=== PATIENT | female | born 1965 | race Caucasian/White ===

== ENCOUNTER 2020-04-01 06:07 | Outpatient (REF) | payer BC, SELFPAY ==
[2020-04-01 07:06] LABS: MANUAL DIFF FLAG NO
[2020-04-01 07:15] LABS: Basophils Percent Auto 0.6 % (0-2); Eosinophils Absolute Auto 0.2 X10*3/uL (0.0-0.4); Eosinophils Percent Auto 3.5 % (0-4); Hematocrit 39.7 % (37-47); Hemoglobin 12.7 g/dl (12.0-16.0); Imm Gran Abs Auto 0.02 X10*3/uL (0.00-0.03); Imm Gran Pct Auto 0.3 % (0.0-0.4); Lymphocytes Absolute Auto 2.4 X10*3/uL (1.2-4.9); Lymphocytes Percent Auto 35.8 % (20-40); Mean Corpuscular Hemoglobin 28.4 pg (27.0-33.0); Mean Corpuscular Volume 88.8 fL (80-98); Mean Platelet Volume 9.1 fL (9.4-12.3); Monocytes Absolute Auto 0.4 X10*3/uL (0.1-1.2); Monocytes Percent Auto 5.6 % (2-11); Neutrophils Absolute Auto 3.6 X10*3/uL (2.0-8.3); Neutrophils Percent Auto 54.2 % (45-73); Platelet Count 295 X10*3/uL (160-400); Red Blood Count 4.47 X10*6/uL (4.20-5.50); Red Cell Distribution Width 12.8 % (11.0-16.0); White Blood Count 6.7 X10*3/uL (4.8-10.8)
[2020-04-01 07:43] LABS: Alanine Aminotransferase 23 U/L (0-31); Albumin Level 4.2 g/dL (3.5-5.0); Alkaline Phosphatase 90 U/L (39-117); Anion Gap 11 (12-20); Aspartate Amino Transferase 17 U/L (5-31); Bilirubin Total 0.3 mg/dL (0.0-1.0); Blood Urea Nitrogen 14 mg/dL (9-16); Calcium 9.3 mg/dL (8.4-10.2); Carbon Dioxide 27 mmol/L (22-29); Chloride 107 mmol/L (96-108); Cholesterol 209 mg/dL; Estimated Glomerular Filt Rate > 60; Glucose Random 97 mg/dL (60-115); HDL Cholesterol 47 mg/dL; LDL Cholesterol Calculated 148 mg/dl; Potassium 4.6 mmol/l (3.3-5.1); Sodium 140 mmol/L (135-145); Total Protein 7.1 g/dL (6.5-8.0); Triglycerides 73 mg/dL; Uric Acid 5.7 mg/dL (2.4-5.7)
[2020-04-01 07:53] LABS: Free T4 (Free Thyroxine) 1.15 ng/dL (0.71-1.85); Thyroid Stimulating Hormone 2.75 uIU/mL (0.32-4.0); Vitamin D 25-OH Total 21.4 ng/mL (>30)
[2020-04-01 08:54] LABS: Folate 9.2 ng/mL (> or = 4.0); Vitamin B12 907 pg/mL (200-900)
== END 2020-04-01 06:08 | disposition home or self-care (01) ==
LOC: HO.LAB 06:07
PROVIDERS: Visit Provider Internal Medicine
DX: E78.00 Pure hypercholesterolemia, unspecified (principal); I10 Essential (primary) hypertension; K21.9 Gastro-esophageal reflux disease without esophagitis; Z87.442 Personal history of urinary calculi
CPT/HCPCS: 36415; 80053; 80061; 82306; 82607; 82746; 84439; 84443; 84550; 85025

== ENCOUNTER 2020-05-24 19:02 | Emergency (ER) | payer BC, SELFPAY ==
[2020-05-24 19:39] VITALS: BP 138/92; PULSE 85; RESP 16; TEMP 36.6; O2SAT 97; BMI 31.1
--- NOTE | 2020-05-24 19:46 | ED_ITS ---
HPI - General Adult General Chief complaint: Dental/Oral Stated complaint: Tongue Swelling Time Seen by Provider: 05/24/20 19:41 Source: patient Mode of arrival: ambulatory History of Present Illness HPI narrative: Female with past medical history of hypertension, hyperlipidemia, GERD, plantar fasciitis, presenting to the ED complaining of painful/swollen tongue with noted split x a few hours. Denies trauma/biting, sx after food or any ingestion. Denies throat swelling, difficulty swallowing or handling secretions, SOB, cough, fever, new medications, change in medications Onset (ago): hour(s) Related Data Home Medications Medication Instructions Recorded Confirmed cholecalciferol (vitamin D3) 25 25 mcg PO DAILY 04/01/20 04/30/20 mcg (1,000 unit) tablet Previous Rx's Medication Instructions Recorded simvastatin 10 mg tablet 10 mg PO BEDTIME #30 tab 04/01/20 hydrochlorothiazide 25 mg tablet 25 mg PO DAILY #90 tab 04/30/20 omeprazole 20 mg capsule,delayed 20 mg PO DAILY #90 cap 04/30/20 release cetirizine [Zyrtec] 10 mg PO DAILY 14 Days #14 cap 05/24/20 diphenhydramine HCl [Benadryl] 25 mg PO Q6H PRN #10 cap 05/24/20 Allergies Allergy/AdvReac Type Severity Reaction Status Date / Time No Known Allergies [NKA] Allergy Mild NOT Verified 04/01/20 15:22 APPLICABLE Review of Systems Review of Systems: Constitutional: No Weight loss, No Fever, No Chills ENT/Mouth: No Ear Pain, No Nasal Congestion, No Sinus Pain, No Hoarseness, No sore throat, No Rhinorrhea, No Swallowing Difficulty, +tongue pain and swelling Cardiovascular: No Chest Pain, No SOB Respiratory: No Cough, No Sputum, No Wheezing Skin: No Skin Lesions, No rash Yes all other systems are reviewed and are negative [facility] Past Medical History Attestation statement: The following information was validated with the patient. Medical History (Updated 05/24/20 @ 19:54 by SILVIANO Go) Fatty liver GERD (gastroesophageal reflux disease) History of renal calculi Hypercholesterolemia Hypertension Irritable bowel syndrome Obesity (BMI 30-39.9) Surgical History (Updated 03/28/20 @ 17:40 by Isaac Field MD) H/O tubal ligation History of abdominal hysterectomy History of lithotripsy Hx of appendectomy Family History Family History (Updated 03/31/20 @ 08:52 by SURESH Silver) Father Brain tumor Mother Hypertension CVD (cardiovascular disease) Social History Social History (Updated 04/01/20 @ 15:25 by Isaac Field MD) Alcohol intake: never Smoking Status: Never smoker Smoked in Last 30 Days: No Use of substances other than those prescribed or required for medical reasons: No Advance Directives: No Advance Directives Information Provided: Yes Physical Exam Vital Signs: Vital Signs: Last Vital Signs Temp 97.8 F 05/24/20 19:39 Pulse 85 05/24/20 19:39 Resp 16 05/24/20 19:39 BP 138/92 H 05/24/20 19:39 Pulse Ox 97 05/24/20 19:39 Body Mass Index 31.1 Const: General: cooperative and healthy appearing Orientation/consciousness: patient oriented x3 Limitations: no limitations HENMT: Head: Yes normal to inspection Ears: hearing grossly normal bilaterally General nose exam: Normal external nose present Face and sinus: Yes normal facial exam Mouth: Normal oral and palatal mucosa present and tongue abnormal (No appreciable tongue swelling) fissured; not edematous, not ulcerated, without plaques and without lesions Throat: Yes posterior oropharynx normal, Yes tonsils normal, Yes uvula midline, No peritonsillar mass and No uvular edema Eyes: General: appearance normal, both eyes and all related structures EOM: EOMs intact bilaterally Neck: Neck: Yes normal visual inspection, Yes no lymphadenopathy, Yes no meningeal signs and Yes trachea midline Resp: Effort & Inspection: normal respiratory effort, no stridor, not tachypneic and no tracheal deviation Auscultation: clear to auscultation bilaterally and no wheezes Cardio: Rate: regular rate Heart sounds: S1 normal heart sound present and S2 normal heart sound present GI: Inspection: Yes normal to inspection Skin: Rashes: no rashes Wounds: no wounds Neuro: General: patient oriented x3 and no meningeal signs Gait exam (Neuro): Normal gait present Extrem: General: Yes normal to inspection Course Course Course Narrative: * Patient reports symptomatic improvement after Tylenol, Benadryl, and viscous lidocaine in the ED. * Medications reconciled and patient only takes hydrochlorothiazide and simvastatin at home, does not take an FELICITA-inhibitor or Arb. worrisome signs and symptoms discussed. Patient verbalized understanding and feels safe for discharge home Medical Decision Making MDM Narrative Medical decision making narrative: On exam VSS, NAD/well-appearing, tongue with noted fissure, no cellulitis/edema or appreciable swelling, uvula midline, no [employer]OR[employer]. Concern for possible allergic reaction vs ? Tongue trauma Discharge Plan Discharge Clinical Impression: Tongue fissure Patient Disposition: Home, Self-Care Additional Instructions: Your tongue appears fissured Take Zyrtec during the day as it will not make you drowsy Take Benadryl at night, or if you feel swelling is worsening. Take Tylenol and Motrin for pain Avoid biting her tongue if your tongue swells, turns red, you have fever, difficulty swallowing, difficulty handling your secretions or shortness of breath return to the ED Prescriptions: New diphenhydramine HCl [Benadryl] 25 mg capsule 25 mg PO Q6H PRN (Reason: allergic reaction) Qty: 10 RF: 0 Zyrtec 10 mg capsule 10 mg PO DAILY 14 Days Qty: 14 RF: 0 No Action cholecalciferol (vitamin D3) 25 mcg (1,000 unit) tablet 25 mcg PO DAILY RF: 0 simvastatin 10 mg tablet 10 mg PO BEDTIME Qty: 30 RF: 3 omeprazole 20 mg capsule,delayed release(DR/EC) 20 mg PO DAILY Qty: 90 RF: 1 hydrochlorothiazide 25 mg tablet 25 mg PO DAILY Qty: 90 RF: 1 Referrals: Po,Isaac Sequeira MD [Primary Care Provider] - 2 days
[2020-05-24] MEDS: Acetaminophen 325 MG TABLET 650 MG PO (19:52)
[2020-05-24] MEDS: Lidocaine HCl Viscous 2 % 15 ML SOLUTION MUCOUS MEM (19:53)
[2020-05-24] MEDS: diphenhydrAMINE HCL 25 MG TABLET PO (19:53)
== END 2020-05-24 21:37 | disposition home or self-care (01) ==
PROVIDERS: Emergency Provider Emergency Medicine; PCP Internal Medicine
DX: K14.5 Plicated tongue (principal); I10 Essential (primary) hypertension
CPT/HCPCS: 99284; Q0163

== ENCOUNTER 2020-06-09 14:36 | Emergency (ER) | payer BC, SELFPAY ==
[2020-06-09 14:49] VITALS: BP 123/78; PULSE 106; RESP 18; TEMP 39.2; O2SAT 97; BMI 30.3
--- NOTE | 2020-06-09 15:02 | XR_ITS ---
EXAMINATION: XR CHEST CLINICAL INFORMATION: Cough. COVID-19 positive. Fever COMPARISON: None TECHNIQUE: Portable upright AP view of the chest was obtained. FINDINGS: There is coarsening of the bronchiolar markings. Subtle groundglass opacities suggested lower zones. There is no lobar or segmental airspace consolidation. Heart size normal. No vascular congestion or effusion. The bony structures are unremarkable. XR/XR chest 1V IMPRESSION: 1. Coarsening bronchiolar markings with subtle groundglass opacity just right lower zone. 2. No lobar segmental airspace consolidation or effusion.
--- NOTE | 2020-06-09 15:11 | ECG_ITS ---
Test Reason : FEVER Blood Pressure : / mmHG Vent. Rate : 099 BPM Atrial Rate : 099 BPM P-R Int : 134 ms QRS Dur : 072 ms QT Int : 332 ms P-R-T Axes : 050 -02 008 degrees QTc Int : 426 ms Artifact in tracing Normal sinus rhythm Nonspecific ST abnormality Borderline ECG When compared with ECG of 12-NOV-2007 07:29, No significant change was found Referred By: Coco Banks Electronically Signed By:NATANAEL CORDOBA
[2020-06-09] MEDS: Acetaminophen 325 MG TABLET 650 MG PO (15:19)
--- NOTE | 2020-06-09 15:21 | ED_ITS ---
HPI - General Adult General Chief complaint: General Medical Stated complaint: covid+, not feeling well Time Seen by Provider: 06/09/20 14:53 Source: patient Mode of arrival: ambulatory History of Present Illness HPI narrative: 54-year-old female with a past medical history fatty liver, GERD, renal calculi, hyperlipidemia, hypertension, IBS, obesity, COVID-19 positive 1 week ago presenting to the ED complaining persistent dry cough, left-sided chest wall pain, left upper abdominal pain, nausea, and vomiting. Admits pain worse with deep inspiration/movement. Denies days dysuria/hematuria, constipation, the ED shortness of breath, recent travel, LE edema, smoking Onset (ago): day(s) Related Data Home Medications Medication Instructions Recorded Confirmed cholecalciferol (vitamin D3) 25 25 mcg PO DAILY 04/01/20 04/30/20 mcg (1,000 unit) tablet Previous Rx's Medication Instructions Recorded simvastatin 10 mg tablet 10 mg PO BEDTIME #30 tab 04/01/20 hydrochlorothiazide 25 mg tablet 25 mg PO DAILY #90 tab 04/30/20 omeprazole 20 mg capsule,delayed 20 mg PO DAILY #90 cap 04/30/20 release cetirizine [Zyrtec] 10 mg PO DAILY 14 Days #14 cap 05/24/20 diphenhydramine HCl [Benadryl] 25 mg PO Q6H PRN #10 cap 05/24/20 Allergies Allergy/AdvReac Type Severity Reaction Status Date / Time No Known Allergies [NKA] Allergy Mild NOT Verified 06/09/20 14:49 APPLICABLE Review of Systems Review of Systems: Constitutional: No Weight loss, +Fever, No Chills, No Night Sweats, + Fatigue, No Malaise ENT/Mouth: No sore throat, No Rhinorrhea Eyes: No Eye Pain, No Swelling, No Redness, No Foreign Body, No Discharge, No Vision Changes Cardiovascular: +chest wall pain, No SOB, No Dyspnea on Exertion, No Edema Respiratory: + Cough, No Sputum, No Dyspnea Gastrointestinal: + Nausea, + Vomiting, + Diarrhea, No Constipation, +Abdominal pain Genitourinary: No irregular bleeding, No Dysuria, No Urinary Frequency, No Hematuria,No Flank Pain Skin: No Skin Lesions, No rash Yes all other systems are reviewed and are negative PMFSH Past Medical History Attestation statement: The following information was validated with the patient. Medical History Acute allergic reaction Fatty liver GERD (gastroesophageal reflux disease) History of renal calculi Hypercholesterolemia Hypertension Irritable bowel syndrome Obesity (BMI 30-39.9) Surgical History H/O tubal ligation History of abdominal hysterectomy History of lithotripsy Hx of appendectomy Family History Family History Father Brain tumor Mother Hypertension CVD (cardiovascular disease) Social History Social History Alcohol intake: never Smoking Status: Never smoker Advance Directives: No Advance Directives Information Provided: No Physical Exam Vital Signs: Vital Signs: Last Vital Signs Temp 102.6 F H 06/09/20 14:49 Pulse 106 H 06/09/20 14:49 Resp 18 06/09/20 14:49 BP 123/78 06/09/20 14:49 Pulse Ox 97 06/09/20 14:49 Body Mass Index 30.3 Const: General: cooperative, comfortable and no acute distress [place] ation/consciousness: patient oriented x3 Limitations: no limitations HENMT: Head: Yes normal to inspection Ears: hearing grossly normal bilaterally General nose exam: Normal external nose present Face and sinus: Yes normal facial exam Eyes: General: appearance normal, both eyes and all related structures EOM: EOMs intact bilaterally Neck: Neck: Yes normal visual inspection Chest: Other: + left lower anterior chest wall tenderness reproducing subject celina complaint Chest palpation & inspection: no crepitus Resp: Effort & Inspection: normal respiratory effort and no stridor Auscultation: clear to auscultation bilaterally, no rales, no rhonchi and no wheezes Cardio: Rate: regular rate Heart sounds: S1 normal heart sound present and S2 normal heart sound present GI: Inspection: Yes normal to inspection Palpation (GI): Soft to palpation, Tenderness to palpation present (GI) in the epigastrum and in the LUQ, no guarding and not rigid : General: Yes no CVA tenderness Back/Spine/Pelvis: Back: no CVA tenderness Skin: Rashes: no rashes Wounds: no wounds Neuro: General: patient oriented x3 Gait exam (Neuro): Normal gait present Extrem: Other: No LE edema, + bilateral calf tenderness greater on the left General: Yes normal to inspection Course Course Course Narrative: XR chest 1V IMPRESSION: 1. Coarsening bronchiolar markings with subtle groundglass opacity just right lower zone. 2. No lobar segmental airspace consolidation or effusion >> azithromycin ordered * 1700-- ED care transfer to SILVIANO Garg pending labs, venous duplex, re-evaluation and dispo per results Medical Decision Making MDM Narrative Medical decision making narrative: 54-year-old female with a past medical history fatty liver, GERD, renal calculi, hyperlipidemia, hypertension, IBS, obesity, COVID-19 positive 1 week ago presenting to the ED complaining persi stent dry cough, left-sided chest wall pain, left upper abdominal pain, nausea, and vomiting. On exam febrile, tachycardic likely from fever, lungs CTA, chest wall tenderness elicited on exam, abdomen soft with epigastric the LUQ TTP, rebound or guarding. Concern for residual COVID sx vs COVID pneumonia vs PE/DVT vs GERD/gastritis or pancreatitis. Lower concern for cholecystitis/cholelithiasis, appendicitis/diverticulitis, or bacterial infection. Low concern for severe sepsis as etiology viral/COVID-19 Plan: EKG, labs, CXR, venous duplex, symptomatic therapy/reassess Lab Data Result diagrams: 06/09/20 16:55 06/09/20 16:55 Labs: Lab Results 06/09/20 06/09/20 Range/Units 16:18 16:55 WBC 6.1 (4.8-10.8) X10*3/uL RBC 4.68 (4.20-5.50) X10*6/uL Hgb 13.2 (12.0-16.0) g/dl Hct 39.6 (37-47) % MCV 84.6 (80-98) fL MCH 28.2 (27.0-33.0) pg MCHC 33.3 (31.0-35.0) g/dl RDW 11.9 (11.0-16.0) % Plt Count 264 (160-400) X10*3/uL MPV 8.9 L (9.4-12.3) fL Immature Gran % (Auto) 0.5 H (0.0-0.4) % Neut % (Auto) 70.1 (45-73) % Lymph % (Auto) 20.8 (20-40) % Whitley % (Auto) 8.4 (2-11) % Eos % (Auto) 0.0 (0-4) % Baso % (Auto) 0.2 (0-2) % Lymph # (Auto) 1.3 (1.2-4.9) X10*3/uL Whitley # (Auto) 0.5 (0.1-1.2) X10*3/uL Eos # (Auto) 0.0 (0.0-0.4) X10*3/uL Baso # (Auto) 0.0 (0.0-0.2) X10*3/uL Abs Immat Gran (auto) 0.03 (0.00-0.03) X10*3/uL Absolute Neuts (auto) 4.3 (2.0-8.3) X10*3/uL Absolute Nucleated RBC 0.000 (0.0-0.012) X10*3/uL Nucleated RBC % (auto) 0.0 (0.0-0.2) /100WBC Urine Color YELLOW Urine Appearance CLEAR Urine pH 6.5 (5.0-8.0) Ur Specific [place] 1.015 (1.005-1.025) Urine Protein TRACE (NEG-TRACE) MG/DL Urine Glucose (UA) NEG (NEG) MG/DL Urine Ketones NEG (NEG) MG/DL Urine Blood TRACE (NEG) Urine Nitrite NEG (NEG) Ur Leukocyte Esterase NEG (NEG) Urine RBC 0-2 (0) /HPF Urine WBC 0 (0-4) /HPF Ur Squamous Epith Cells TRACE /LPF Urine Bacteria NONE /LPF ECG Data Attestation: I personally reviewed and interpreted this ECG as follows: Interpretation: EKG normal sinus rhythm with a rate of 99. No ischemic changes. No STEMI. Artifact present Discharge Plan Discharge Prescriptions: No Action diphenhydramine HCl [Benadryl] 25 mg capsule 25 mg PO Q6H PRN (Reason: allergic reaction) Qty: 10 RF: 0 Zyrtec 10 mg capsule 10 mg PO DAILY 14 Days Qty: 14 RF: 0 cholecalciferol (vitamin D3) 25 mcg (1,000 unit) tablet 25 mcg PO DAILY RF: 0 simvastatin 10 mg tablet 10 mg PO BEDTIME Qty: 30 RF: 3 omeprazole 20 mg capsule,delayed release(DR/EC) 20 mg PO DAILY Qty: 90 RF: 1 hydrochlorothiazide 25 mg tablet 25 mg PO DAILY Qty: 90 RF: 1
--- NOTE | 2020-06-09 15:26 | US_ITS ---
EXAMINATION: US VENOUS ULTRASOUND WITH DOPPLER LOWER EXTREMITY, BILATERAL CLINICAL INFORMATION: Calf pain bilaterally greater on the left. COMPARISON: None TECHNIQUE: Ultrasound of the deep veins is performed from the hip to the calf with compression sonography and color and pulse Doppler assessment. Spectral analysis with color-flow imaging is performed. FINDINGS: RIGHT: There is normal venous compression and respiratory variation and augmented flow. The visualized common femoral vein, superficial femoral vein, profunda femoral vein, popliteal vein, and the trifurcation region shows no evidence of deep venous thrombosis. There is no significant popliteal fossa cyst. LEFT: There is normal venous compression and respiratory variation and augmented flow. The visualized common femoral vein, superficial femoral vein, profunda femoral vein, popliteal vein, and the trifurcation region shows no evidence of deep venous thrombosis. There is no significant popliteal fossa cyst. The left peroneal vein is not able to be visualized. If the patient's symptoms persist, followup ultrasound in 5 days 7 days might be of value to exclude proximal propagation from a non-visualized calf vein. US/US venous duplex LE BI IMPRESSION: No DVT demonstrated in the bilateral lower .
[2020-06-09] MEDS: Famotidine 20 MG TABLET PO (15:46)
[2020-06-09] MEDS: Magnesium Hydrox/Alum Hydrox 30 ML ORAL.SUSP PO (15:46)
[2020-06-09 16:46] LABS: Appearance Urine CLEAR; Color Urine YELLOW; Glucose Urine UA NEG (NEG); Leukocyte Esterase Urine NEG (NEG); Nitrite Urine NEG (NEG); PH 6.5 (5.0-8.0); Specific Gravity - Urine 1.015 (1.005-1.025); Urine Blood TRACE (NEG); Urine Ketones NEG (NEG); Urine Protein TRACE MG/DL (NEG-TRACE)
[2020-06-09 17:02] LABS: MANUAL DIFF FLAG NO
[2020-06-09 17:04] LABS: Basophils Percent Auto 0.2 % (0-2); Hematocrit 39.6 % (37-47); Hemoglobin 13.2 g/dl (12.0-16.0); Imm Gran Abs Auto 0.03 X10*3/uL (0.00-0.03); Imm Gran Pct Auto 0.5 % (0.0-0.4); Lymphocytes Absolute Auto 1.3 X10*3/uL (1.2-4.9); Lymphocytes Percent Auto 20.8 % (20-40); Mean Corpuscular HGB Conc 33.3 g/dl (31.0-35.0); Mean Corpuscular Hemoglobin 28.2 pg (27.0-33.0); Mean Corpuscular Volume 84.6 fL (80-98); Mean Platelet Volume 8.9 fL (9.4-12.3); Monocytes Absolute Auto 0.5 X10*3/uL (0.1-1.2); Monocytes Percent Auto 8.4 % (2-11); Neutrophils Absolute Auto 4.3 X10*3/uL (2.0-8.3); Neutrophils Percent Auto 70.1 % (45-73); Platelet Count 264 X10*3/uL (160-400); Red Blood Count 4.68 X10*6/uL (4.20-5.50); Red Cell Distribution Width 11.9 % (11.0-16.0); White Blood Count 6.1 X10*3/uL (4.8-10.8)
[2020-06-09 17:08] LABS: RBC Urine 0-2 /HPF (0); Squamous Epithelial Cell Urine TRACE /LPF; WBC Urine 0 /HPF (0-4)
[2020-06-09 17:22] LABS: INTERNATIONAL NORM RATIO 1.3 (0.9-1.1); Prothrombin Time 15.8 SEC (10.8-13.0)
[2020-06-09 17:25] LABS: D Dimer 689 NG/ML; Partial Thromboplastin Time 32.7 SEC (24.1-38.0)
[2020-06-09 17:37] LABS: Lipase 43 U/L (8-78)
[2020-06-09 17:39] LABS: Alanine Aminotransferase 94 U/L (0-31); Alkaline Phosphatase 92 U/L (39-117); Anion Gap 13 (12-20); Aspartate Amino Transferase 50 U/L (5-31); Bilirubin Direct 0.2 mg/dL (0.0-0.5); Bilirubin Total 0.3 mg/dL (0.0-1.0); Blood Urea Nitrogen 11 mg/dL (9-16); Calcium 8.8 mg/dL (8.4-10.2); Carbon Dioxide 29 mmol/L (22-29); Chloride 99 mmol/L (96-108); Creatinine Clr Calc Pharmacy 79.3; Estimated Glomerular Filt Rate > 60; Glucose Random 122 mg/dL (60-115); Lactate Dehydrogenase 287 U/L (122-220); Magnesium 2.2 mg/dL (1.6-2.6); Potassium 3.4 mmol/l (3.3-5.1); Sodium 138 mmol/L (135-145); Total Protein 7.1 g/dL (6.5-8.0)
[2020-06-09] MEDS: Azithromycin 500 MG TABLET PO (17:40)
[2020-06-09 17:42] LABS: B Type Natriuretic Peptide < 10 pg/mL (<100); Troponin-I High Sensitivity < 3.5 ng/L (<3.5-17.0)
[2020-06-09 17:58] LABS: Ferritin 234 ng/mL (10-250); Procalcitonin 0.07 ng/mL
[2020-06-09 18:00] VITALS: RESP 18
--- NOTE | 2020-06-09 18:30 | PC.NURSE ---
iv established, blood labs and cultures obtained and sent. medicated per emar. ultrasound at bedside for doppler r/o dvt.
--- NOTE | 2020-06-09 19:02 | CT_ITS ---
EXAMINATION: CT ANGIOGRAM OF THE CHEST WITH AND WITHOUT CONTRAST (CT PULMONARY ANGIOGRAM FOR PE) EXAMINATION: CTA CHEST PE STUDY CLINICAL INFORMATION: elevated D-dimer. PE? COMPARISON: Chest x-ray today TECHNIQUE: Prior to contrast administration, noncontrast localization images were obtained. After the administration of 65 mL of Omnipaque 350 IV contrast, contiguous thin slice helical images were obtained through the thorax. Reformatted MIP images in the coronal and sagittal planes were obtained at the acquisition workstation. This CT examination was performed using dose optimization techniques as appropriate, variously including the following: *Automated exposure control *Adjustment of mA and/or kV according to patient size (this includes techniques or standardized protocols for targeted exams where dose is matched to indication/reason for exam; i.e. extremities or head) *Use of iterative reconstruction technique DLP: 303 mGy-cm. FINDINGS: The bolus timing on this study was acceptable for visualization of the pulmonary arterial tree. There are no intraluminal pulmonary arterial filling defects present to suggest pulmonary embolism. Patchy bilateral airspace disease is seen. Groundglass opacities are seen with a relative peripheral predominance. Atypical or viral infectious etiology would be favored in the acute setting. No abnormal pulmonary nodules or masses are appreciated. No significant hilar or mediastinal adenopathy. There is no evidence of pleural effusion or pneumothorax. The heart is normal in size. No evidence of ventricular septal bowing or right heart strain. Great vessels are normal. Otherwise the mediastinum is unremarkable. There is no pericardial effusion or pericardial thickening. Limited evaluation of the upper abdominal viscera is unremarkable. CT/CT angio chest PE protocol IMPRESSION: No evidence for pulmonary emboli. Patchy bilateral groundglass opacities seen with a peripheral predominance. Atypical or viral infectious etiology would be suspected in the acute setting. VTE: Negative
[2020-06-09 19:24] VITALS: BP 118/74; PULSE 86; RESP 16; O2SAT 97
[2020-06-09] MEDS: iohexoL 350 MG/ML 100 ML INFUS..BTL 65 ML IV (20:32)
[2020-06-09 23:26] VITALS: BP 118/76; PULSE 84; RESP 18; O2SAT 95
[2020-06-10] VITALS: BP 134/78; PULSE 84; RESP 16; TEMP 36.9; O2SAT 99
--- NOTE | 2020-06-10 00:14 | PC.NURSE ---
PATIENT WENT FOR A WALK ,O2 SAT STAYED AT 99 % ,SILVIANO BUTT IS AWARE .
== END 2020-06-10 00:47 | disposition home or self-care (01) ==
PROVIDERS: Physician Assistant; Emergency Provider Emergency Medicine; PCP Internal Medicine
DX: R07.89 Other chest pain (principal); Z86.16 Personal history of COVID-19; M79.662 Pain in left lower leg; M79.661 Pain in right lower leg; I10 Essential (primary) hypertension; R50.9 Fever, unspecified
CPT/HCPCS: 36415; 71045; 71275; 80048; 80076; 81001; 82728; 83605; 83615; 83690; 83735; 83880; 84145; 84484; 85025; 85379; 85610; 85730; 87040; 93005; 93970; 99284; Q9967

== ENCOUNTER 2020-06-28 07:35 | Outpatient (REF) | payer BC, SELFPAY ==
[2020-06-28 09:07] LABS: Alanine Aminotransferase 22 U/L (0-31); Albumin Level 4.3 g/dL (3.5-5.0); Alkaline Phosphatase 99 U/L (39-117); Anion Gap 14 (12-20); Aspartate Amino Transferase 19 U/L (5-31); Bilirubin Total 0.7 mg/dL (0.0-1.0); Blood Urea Nitrogen 13 mg/dL (9-16); Calcium 9.7 mg/dL (8.4-10.2); Carbon Dioxide 26 mmol/L (22-29); Chloride 102 mmol/L (96-108); Cholesterol 223 mg/dL; Estimated Glomerular Filt Rate > 60; Glucose Random 105 mg/dL (60-115); HDL Cholesterol 44 mg/dL; LDL Cholesterol Calculated 148 mg/dl; Potassium 3.8 mmol/L (3.3-5.1); Sodium 138 mmol/L (135-145); Total Protein 7.7 g/dL (6.5-8.0); Triglycerides 157 mg/dL
[2020-06-28 09:30] LABS: Vitamin D 25-OH Total 46.2 ng/mL (>30)
== END 2020-06-28 07:36 | disposition home or self-care (01) ==
LOC: HO.LAB 07:35
PROVIDERS: PCP Internal Medicine; Visit Provider Internal Medicine
DX: E55.9 Vitamin D deficiency, unspecified (principal); E78.00 Pure hypercholesterolemia, unspecified
CPT/HCPCS: 36415; 80053; 80061; 82306

== ENCOUNTER 2020-09-03 13:55 | Outpatient (REF) | payer BC, SELFPAY ==
[2020-09-03 14:31] LABS: MANUAL DIFF FLAG NO
[2020-09-03 14:37] LABS: Basophils Absolute Auto 0.1 X10*3/uL (0.0-0.2); Basophils Percent Auto 0.6 % (0-2); Eosinophils Absolute Auto 0.2 X10*3/uL (0.0-0.4); Eosinophils Percent Auto 2.4 % (0-4); Hematocrit 36.7 % (37-47); Imm Gran Abs Auto 0.03 X10*3/uL (0.00-0.03); Imm Gran Pct Auto 0.3 % (0.0-0.4); Lymphocytes Percent Auto 33.7 % (20-40); Mean Corpuscular HGB Conc 32.7 g/dl (31.0-35.0); Mean Corpuscular Hemoglobin 28.7 pg (27.0-33.0); Mean Corpuscular Volume 87.8 fL (80-98); Mean Platelet Volume 8.7 fL (9.4-12.3); Monocytes Absolute Auto 0.6 X10*3/uL (0.1-1.2); Monocytes Percent Auto 6.2 % (2-11); Neutrophils Percent Auto 56.8 % (45-73); Platelet Count 359 X10*3/uL (160-400); Red Blood Count 4.18 X10*6/uL (4.20-5.50); Red Cell Distribution Width 12.9 % (11.0-16.0); White Blood Count 8.8 X10*3/uL (4.8-10.8)
[2020-09-03 14:51] LABS: Alanine Aminotransferase 25 U/L (0-31); Albumin Level 4.3 g/dL (3.5-5.0); Alkaline Phosphatase 88 U/L (39-117); Anion Gap 12 (12-20); Aspartate Amino Transferase 14 U/L (5-31); Bilirubin Total 0.4 mg/dL (0.0-1.0); Blood Urea Nitrogen 15 mg/dL (9-16); Calcium 10.1 mg/dL (8.4-10.2); Carbon Dioxide 30 mmol/L (22-29); Chloride 99 mmol/L (96-108); Estimated Glomerular Filt Rate > 60; Glucose Random 121 mg/dL (60-115); Potassium 3.6 mmol/L (3.3-5.1); Sodium 137 mmol/L (135-145); Total Protein 7.2 g/dL (6.5-8.0)
[2020-09-03 15:15] LABS: Free T4 (Free Thyroxine) 0.88 ng/dL (0.71-1.85); Thyroid Stimulating Hormone 1.51 uIU/mL (0.32-4.0)
== END 2020-09-03 13:56 | disposition home or self-care (01) ==
LOC: HO.LAB 13:55
PROVIDERS: PCP Internal Medicine; Visit Provider Internal Medicine
DX: L65.9 Nonscarring hair loss, unspecified (principal)
CPT/HCPCS: 36415; 80053; 84439; 84443; 85025

== ENCOUNTER 2020-09-22 13:16 | Outpatient (REF) | payer BC, SELFPAY ==
[2020-09-22 14:52] LABS: Estimated Average Glucose 123 mg/dL; Hemoglobin A1c % 5.9 %
[2020-09-22 14:58] LABS: Alanine Aminotransferase 28 U/L (0-31); Albumin Level 4.3 g/dL (3.5-5.0); Alkaline Phosphatase 90 U/L (39-117); Anion Gap 11 (12-20); Aspartate Amino Transferase 19 U/L (5-31); Bilirubin Total 0.5 mg/dL (0.0-1.0); Blood Urea Nitrogen 15 mg/dL (9-16); Calcium 10.3 mg/dL (8.4-10.2); Carbon Dioxide 31 mmol/L (22-29); Chloride 101 mmol/L (96-108); Cholesterol 182 mg/dL; Estimated Glomerular Filt Rate > 60; Glucose Random 114 mg/dL (60-115); HDL Cholesterol 42 mg/dL; LDL Cholesterol Calculated 102 mg/dl; Potassium 3.5 mmol/L (3.3-5.1); Sodium 139 mmol/L (135-145); Total Protein 7.3 g/dL (6.5-8.0); Triglycerides 192 mg/dL
== END 2020-09-22 13:17 | disposition home or self-care (01) ==
LOC: HO.LAB 13:16
PROVIDERS: PCP Internal Medicine; Visit Provider Internal Medicine
DX: R73.02 Impaired glucose tolerance (oral) (principal); E78.00 Pure hypercholesterolemia, unspecified
CPT/HCPCS: 36415; 80053; 80061; 83036

== ENCOUNTER 2020-12-04 10:26 | Outpatient (REF) | payer BC, SELFPAY ==
--- NOTE | ~2020-12-04 | FL_ITS ---
EXAMINATION: XR GI SERIES CLINICAL INFORMATION: Epigastric pain. COMPARISON: None TECHNIQUE: Routine upper GI air-contrast study was performed. FINDINGS: Following oral administration of thick barium and effervescent granules there is normal propagation of bolus from the oral cavity through the pharynx into the esophagus without any evidence of obstruction, narrowing or stricture. On placing patient supine and prone lying there is mild gastroesophageal reflux. No hiatal hernia seen. The course, caliber and peristalsis of the stomach is normal. There are small round prominent mucosal cells in the stomach. Question hypoplastic gastric mucosa versus small gastric erosions. FLUOROSCOPY TIME: 1.6 minutes. DOSE AREA PRODUCT: 27.948 uGy-m2 (microgray-meter squared). FL/FL upper GI series IMPRESSION: Mild gastroesophageal reflux without hiatal hernia. Prominent gastric mucosa likely hyperplastic mucosa or small gastric erosions. Recommend gastroscopy.
== END 2020-12-04 10:27 | disposition home or self-care (01) ==
LOC: HO.XRAY 10:26
PROVIDERS: PCP Internal Medicine; Visit Provider Internal Medicine
DX: R10.13 Epigastric pain (principal)
CPT/HCPCS: 74240

== ENCOUNTER → 2021-02-04 14:50 | Outpatient (BNVA) | payer BC, SELFPAY | PROVIDERS: PCP Internal Medicine; Referring Provider Internal Medicine; Visit Provider Nurse Practitioner Family ==

== ENCOUNTER 2021-02-06 09:22 | Outpatient (REF) | payer BC, SELFPAY | END 2021-02-06 09:23 | disposition home or self-care (01) | LOC: HO.LNP 09:22 | PROVIDERS: Visit Provider Nurse Practitioner Family | DX: K21.9 Gastro-esophageal reflux disease without esophagitis (principal) | CPT/HCPCS: 87338 ==

== ENCOUNTER → 2021-03-13 14:57 | Outpatient (BNVA) | payer BC, SELFPAY | PROVIDERS: PCP Internal Medicine; Referring Provider Internal Medicine; Visit Provider Nurse Practitioner Family ==

== ENCOUNTER 2021-04-09 10:21 | Outpatient (REF) | payer BC, SELFPAY ==
--- NOTE | ~2021-04-09 | US_ITS ---
EXAMINATION: US COMPLETE ABDOMEN WITH LIVER ELASTOGRAPHY CLINICAL INFORMATION: Abdominal pain COMPARISON: None. TECHNIQUE: Real-time imaging of the abdominal viscera. Noninvasive ultrasound liver fibrosis assessment is performed using Edy ElastPQ point quantification shear wave elastography (pSWE) with a C5-2 MHz transducer. Multiple elastography samples are obtained. FINDINGS: PANCREAS: Normal. ABDOMINAL AORTA: The proximal, middle, and distal aortic segments are normal in caliber. INFERIOR VENA CAVA: Visualized portions are normal. LIVER: Liver echotexture is slightly increased. The liver demonstrates normal size and contour. No focal lesion or intrahepatic biliary duct dilatation. The right lobe measures 14 cm in length. The left lobe measures 10 cm in length. Portal flow is normal/hepatopedal Shear wave liver elastography median stiffness is 1.6 m/s (reference: normal median stiffness is 1.3 m/s or less). IQR/median stiffness to assess sampling precision is 0.14 (reference: good quality data set is IQR/median stiffness of 0.15 or less). GALLBLADDER: Normal. The gallbladder is physiologically distended without evidence of stones, sludge, polyps, wall thickening or pericholecystic fluid. COMMON BILE DUCT: Normal in caliber measuring 0.4 cm in diameter. RIGHT KIDNEY: Normal. No hydronephrosis. No renal calculi or focal parenchymal lesions. The kidney measures 11 cm in maximum dimension. LEFT KIDNEY: Normal. No hydronephrosis. No renal calculi or focal parenchymal lesions. The kidney measures 10 cm in maximum dimension. SPLEEN: Normal. The spleen measures 9 cm in maximum dimension. FREE FLUID: None. US/US abdomen comp w elastography IMPRESSION: 1. Impression: Slightly echogenic liver. Limited visualization of the tail the pancreas. 2. Liver elastography: Adequate liver sampling. In the absence of other known clinical signs, rules out compensated advanced chronic liver disease. REFERENCE: Society of Radiologists in Ultrasound Liver Stiffness Thresholds (2020): LIVER STIFFNESS THRESHOLDS: *Liver Stiffness equal or less than 1.3 m/s: High probability of being normal. *Liver Stiffness less than 1.7 m/s: In the absence of other known clinical signs, rules out compensated advanced chronic liver disease. *Liver Stiffness 1.7-2.1 m/s: Suggestive of compensated advanced chronic liver disease but need further test for confirmation. *Liver Stiffness over 2.1 m/s: Rules in compensated advanced chronic liver disease. *Liver Stiffness over 2.4 m/s: Suggestive of clinically significant portal hypertension. QUALITY OF DATA SET: *IQR/Median value equal or less than 0.15 implies a quality data set. *IQR/Median value over 0.15 implies a poor quality data set. SIGNIFICANT CHANGE FROM PRIOR EXAM: Significant change if liver stiffness measurement is 10% or greater from prior exam. OTHER CONSIDERATIONS: The stage of liver fibrosis may be overestimated in the setting of acute hepatitis, liver inflammation, elevated liver function tests, hepatic vascular congestion, obstructive cholestasis, non-fasting state, and infiltrative diseases such as amyloidosis and lymphoma. In some patients with NAFLD, the liver stiffness thresholds for compensated advanced chronic liver disease may be lower. In causes other than viral hepatitis and NAFLD, liver stiffness thresholds are not well established.
== END 2021-04-09 10:22 | disposition home or self-care (01) ==
LOC: HO.US 10:21
PROVIDERS: PCP Internal Medicine; Visit Provider Nurse Practitioner Family
DX: R10.9 Unspecified abdominal pain (principal)
CPT/HCPCS: 76705; 76981

== ENCOUNTER 2021-04-23 11:28 | Day surgery (SDC) | payer BC, SELFPAY ==
--- NOTE | 2021-04-22 10:05 | P.CONAN_ITS ---
Documented by User: Liza Moore NP 04/22/21 10:06 HPI - Anesthesia Eval Consult details Narrative: 55yo F for Upper Endoscopy PMFSH Active Problems Active Problems: All Active Problems (Updated 02/04/21 @ 16:43 by Mary Carmen Barahona [facility]) Vitamin D deficiency (Acute) Plantar fasciitis of right foot (Acute) COVID-19 (Acute) Impaired glucose tolerance (Acute) Hair loss (Acute) Epigastric abdominal pain (Acute) Gastric erosions (Acute) Acute allergic reaction (Acute) Hypertension (Acute) History of renal calculi (Acute) Hypercholesterolemia (Acute) GERD (gastroesophageal reflux disease) (Acute) Obesity (BMI 30-39.9) (Acute) Past Medical History Medical History Acute allergic reaction Fatty liver GERD (gastroesophageal reflux disease) History of renal calculi Hypercholesterolemia Hypertension Irritable bowel syndrome Obesity (BMI 30-39.9) Family History Family History Father Brain tumor Mother Hypertension CVD (cardiovascular disease) Surgical History Surgical History (Updated 04/15/21 @ 10:20 by Abi Yang, LEANDRO) H/O tubal ligation History of abdominal hysterectomy History of lithotripsy Hx of appendectomy Hx of arthroscopy of left knee Hx of arthroscopy of right knee Social History Social History Housing: Apartment Alcohol intake: never Patient Tobacco Use Status: Never used Tobacco e-Cigarette/Vaping Use: Never Used Second Hand Smoke Exposure: No Advance Directives: No Advance Directives Information Provided: No service: No Current occupational status: employed Meds Allergies Allergy/AdvReac Type Severity Reaction Status Date / Time No Known Allergies [NKA] Allergy Mild NOT Verified 03/13/21 15:03 APPLICABLE Home Medications Medication Instructions Recorded Confirmed Last Taken Type cholecalciferol (vitamin D3) 25 25 mcg PO DAILY 04/01/20 04/15/21 Unknown History mcg (1,000 unit) tablet omeprazole 20 mg capsule,delayed 1 cap PO DAILY 04/15/21 04/15/21 Unknown History release simvastatin 10 mg tablet 1 tab PO BEDTIME 04/15/21 04/15/21 Unknown History Exam Exam Date and Time: April 22, 2021 1005 Assessment and Plan Assessment Anesthesia Assessment: Chart Reviewed Documented by User: Rodney Fuller MD 04/23/21 11:51 PMF Past Medical History Medical History Acute allergic reaction Fatty liver GERD (gastroesophageal reflux disease) History of renal calculi Hypercholesterolemia Hypertension Irritable bowel syndrome Obesity (BMI 30-39.9) Family History Family History Father Brain tumor Mother Hypertension CVD (cardiovascular disease) Family history of problems with anesthesia: No Surgical History Surgical History (Updated 04/15/21 @ 10:20 by Abi Yang, RN) H/O tubal ligation History of abdominal hysterectomy History of lithotripsy Hx of appendectomy Hx of arthroscopy of left knee Hx of arthroscopy of right knee History of Problems with Anesthesia: No Social History Social History Housing: Apartment Alcohol intake: never Patient Tobacco Use Status: Never used Tobacco e-Cigarette/Vaping Use: Never Used Second Hand Smoke Exposure: No Advance Directives: No Advance Directives Information Provided: No service: No Current occupational status: employed Meds Allergies Allergy/AdvReac Type Severity Reaction Status Date / Time No Known Allergies [NKA] Allergy Mild NOT Verified 03/13/21 15:03 APPLICABLE Home Medications Medication Instructions Recorded Confirmed Last Taken Type cholecalciferol (vitamin D3) 25 25 mcg PO DAILY 04/01/20 04/15/21 Unknown History mcg (1,000 unit) tablet omeprazole 20 mg capsule,delayed 1 cap PO DAILY 04/15/21 04/15/21 Unknown History release simvastatin 10 mg tablet 1 tab PO BEDTIME 04/15/21 04/15/21 Unknown History Exam Airway Mallampati Class: II TM Dist: >3cm Neck ROM: Full Assessment and Plan Final Anesthetic Review Family History of Problems with Anesthesia: No History of Problems with Anesthesia: No NPO: Yes ASA Class: II Final Preanesthetic Review: No Changes in Pt Med Stat and Consent Obtained/Reviewed Patient Risk: Intermediate Procedure Risk: Low Anesthetic Plan Anesthetic Plan: MAC: Disposition: Standard PACU
--- NOTE | 2021-04-23 11:44 | MHC.SHP ---
Pre-Procedural Eval Section A Date of Service: 04/23/21 Section B Chief Complaint: GERD Relevant Family History (Specify if Yes): No Relevant Social History: None Present Medications: see Short Stay Collaborative assessment Medical History: Significant History (Acute allergic reaction Fatty liver GERD (gastroesophageal reflux disease) History of renal calculi Hypercholesterolemia Hypertension Irritable bowel syndrome Obesity (BMI 30-39.9)) History of Previous Operations: Relevant previous surgery/procedure and date(s) (H/O tubal ligation History of abdominal hysterectomy History of lithotripsy Hx of appendectomy Hx of arthroscopy of left knee Hx of arthroscopy of right knee) Allergies: Allergies Allergy/AdvReac Type Severity Reaction Status Date / Time No Known Allergies [NKA] Allergy Mild NOT Verified 03/13/21 15:03 APPLICABLE Review of Systems Sugical H&P ROS: Negative: Constitution, Cardiovascular, Respiratory, Neurological, Psychiatric, Hem-Onc, Allergic/Immunologic, Gastrointestinal, Genitourinary, Musculoskeletal, Integumentary, Endocrine and Eyes/Ears/Nose/Throat Exam Surgical H&P Exam: Normal: HEENT, Normal: Heart, Normal: Lungs, Normal: Extremities, Normal: Abdomen, Normal: Skin and Normal: Neurological Plan Diagnosis/Plan: Unchanged I have reviewed the history and physical and performed a pertinent physical examination on my patient. No changes have occurred unless specified.
[2021-04-23 11:58] VITALS: BP 131/82; PULSE 86; RESP 20; TEMP 36.3; O2SAT 97; BMI 28.9
[2021-04-23] MEDS: Lactated Ringers 1,000 ML 100 ML IVCONT (12:08)
--- NOTE | 2021-04-23 12:23 | PM.OP ---
Brief Operative Note Date of Service: 04/23/21 Pre-op diagnosis: LUQ pain, satiety Post-op diagnosis: same Procedure: see op note Surgeon: Flavio Hawkins MD Anesthesia: MAC Was an Conveyor Attendant used for this Procedure?: No Estimated blood loss (mL): 0 Condition: stable Disposition: PACU
--- NOTE | 2021-04-23 12:23 | W.PM.OPN ---
Operative Note Operative Note Date of Service: 04/23/21 Narrative: Procedure Description: EGD FLEXIBLE TRANSORAL UPPER GASTROINTESTINAL ENDOSCOPY UPPER ENDOSCOPY Consent: Indications for the procedure and potential complications of bleeding, perforation, reaction to medications and missed diagnosis were discussed with the patient and informed consent was obtained. Instrument: Olympus GIF H 190 J mid size upper endoscope Monitoring: Vital signs and clinical assessment, continuous EKG monitoring, Pulse oximetry, Carbon Dioxide monitoring and blood pressure monitoring were done throughout the procedure. Procedure: The patient was placed in the left lateral decubitis position and pre-procedure medications were administered and a bite block was placed. The endoscope was inserted into the mouth and advanced under direct vision to the third part of duodenum. A careful inspection was made as the upper endoscope was withdrawn including a retroflexed examination of the proximal stomach; Findings and interventions are described below. Findings: Larynx:normal Esophagus: GE junction at 36 cm, diaphragm hiatus at 36 cm, mild esophagitis, bx taken from GEJ Stomach: Patchy gastric erythema. Biopsies were obtained. Grade 2 flap valve on retroflexed examination of the cardia. one biopsy site was bleeding persistently so one clip applied with good effect. several fundic gland polyps noted. Duodenum: mild bulbar duodenitis, bx taken Intervention: Biopsies as noted above, clip to bleeding area Impression/Findings: mild gastritis, duodenitis esophagitis fundic gland polyps PLAN: await bx results consider GES if bx are negative -there did appear to be reduced gastric movement consider alternative PPI
[2021-04-23 12:33] VITALS: BP 123/82; PULSE 87; RESP 20; TEMP 36.3; O2SAT 98
[2021-04-23 12:47] VITALS: BP 134/92; PULSE 83; RESP 18; TEMP 36.3; O2SAT 97
== END 2021-04-23 13:52 | disposition home or self-care (01) ==
PROVIDERS: PCP Internal Medicine; Visit Provider Internal Medicine Gastroenterology
PROC: 0DJ08ZZ Inspection of Upper Intestinal Tract, Via Natural or Artificial Opening Endoscopic (ICD-10-PCS; CPT 43235; principal; 2021-04-23 12:30)
DX: K21.9 Gastro-esophageal reflux disease without esophagitis (principal); K29.80 Duodenitis without bleeding; K29.50 Unspecified chronic gastritis without bleeding; K20.90 Esophagitis, unspecified without bleeding; K31.7 Polyp of stomach and duodenum; K44.9 Diaphragmatic hernia without obstruction or gangrene; K76.0 Fatty (change of) liver, not elsewhere classified; K58.9 Irritable bowel syndrome, unspecified; I10 Essential (primary) hypertension; E66.9 Obesity, unspecified; Z68.31 Body mass index [BMI] 31.0-31.9, adult; Z91.09 Other allergy status, other than to drugs and biological substances; Z87.442 Personal history of urinary calculi
CPT/HCPCS: 43239; 88305; 88342

== ENCOUNTER → 2021-06-16 10:29 | Outpatient (BNVA) | payer BC, SELFPAY | PROVIDERS: PCP Internal Medicine; Referring Provider Internal Medicine; Visit Provider Internal Medicine Gastroenterology ==

== ENCOUNTER 2021-08-04 06:00 | Outpatient (REF) | payer BC, SELFPAY ==
[2021-08-04 06:13] LABS: MANUAL DIFF FLAG NO
[2021-08-04 07:35] LABS: Basophils Absolute Auto 0.1 X10*3/uL (0.0-0.2); Basophils Percent Auto 0.6 % (0-2); Eosinophils Absolute Auto 0.3 X10*3/uL (0.0-0.4); Eosinophils Percent Auto 3.2 % (0-4); Hematocrit 41.5 % (37.0-47.0); Imm Gran Abs Auto 0.03 X10*3/uL (0.00-0.03); Imm Gran Pct Auto 0.4 % (0.0-0.4); Lymphocytes Absolute Auto 2.9 X10*3/uL (1.2-4.9); Mean Corpuscular HGB Conc 31.3 g/dl (31.0-35.0); Mean Corpuscular Hemoglobin 27.8 pg (27.0-33.0); Mean Corpuscular Volume 88.7 fL (80.0-98.0); Mean Platelet Volume 8.8 fL (9.4-12.3); Monocytes Absolute Auto 0.4 X10*3/uL (0.1-1.2); Monocytes Percent Auto 5.6 % (2-11); Neutrophils Absolute Auto 4.2 x10*3/uL (2.0-8.3); Neutrophils Percent Auto 53.2 % (45-73); Platelet Count 333 X10*3/uL (160-400); Red Blood Count 4.68 X10*6/uL (4.20-5.50); Red Cell Distribution Width 13.4 % (11.0-16.0); White Blood Count 7.8 X10*3/uL (4.8-10.8)
[2021-08-04 07:53] LABS: Estimated Average Glucose 131 mg/dL; Hemoglobin A1c % 6.2 %
[2021-08-04 08:02] LABS: Alanine Aminotransferase 26 U/L (0-31); Albumin Level 4.1 g/dL (3.5-5.0); Alkaline Phosphatase 98 U/L (39-117); Anion Gap 13 (12-20); Aspartate Amino Transferase 17 U/L (5-31); Bilirubin Total 0.3 mg/dL (0.0-1.0); Blood Urea Nitrogen 14 mg/dL (9-16); C Reactive Protein 0.28 mg/dL (< or = 0.50); Calcium 10.1 mg/dL (8.4-10.2); Carbon Dioxide 28 mmol/L (22-29); Chloride 106 mmol/L (96-108); Cholesterol 164 mg/dL; Estimated Glomerular Filt Rate > 60; Glucose Fasting 108 mg/dL (60-99); HDL Cholesterol 41 mg/dL; Iron 59 mcg/dL (30-160); LDL Cholesterol Calculated 97 mg/dl; Percent Iron Saturation 18 % (15-50); Potassium 4.7 mmol/L (3.3-5.1); Sodium 142 mmol/L (135-145); Total Iron Binding Capacity 328 mcg/dL (228-428); Total Protein 7.3 g/dL (6.5-8.0); Triglycerides 133 mg/dL; Unsaturated Iron Binding 269 ug/dL
[2021-08-04 08:17] LABS: HBS Num1 50.68 mIU/mL (0-7.99); HBc Num1 0.08 S/CO (0.00-0.79); HIV AB/AG Nonreactive (Nonreactive); HIV Num 1 0.08 S/CO (0.00-0.99); Hepatitis B Core Antibody Nonreactive (Nonreactive); Hepatitis B Surface Antigen Negative (Negative); ~HepC Num1 0.44 S/CO (0.00-0.79); ~Hepatitis B Surface Antibody REACTIVE (Nonreactive); ~Hepatitis C Antibody Nonreactive (Nonreactive)
[2021-08-04 08:23] LABS: TSH reflex Free T4 3.62 uIU/mL (0.32-4.0)
[2021-08-04 08:41] LABS: Erythrocyte Sedimentation Rate 12 MM/HR (0-20)
[2021-08-04 08:45] LABS: Folate 15.5 ng/mL (> or = 4.0); Vitamin B12 761 pg/mL (200-900)
[2021-08-05 04:20] LABS: Hepatitis A Antibody IgM 0.17 Index (0-0.79); ~Hepatitis A Antibody IgM Nonreactive (Nonreactive)
[2021-08-10 17:01] LABS: Vitamin D 25-OH, D2 <4 ng/mL; Vitamin D 25-OH, D3 32 ng/mL; Vitamin D 25-OH, Total 32 ng/mL (30-100)
== END 2021-08-04 06:01 | disposition home or self-care (01) ==
LOC: HO.LAB 06:00
PROVIDERS: PCP Internal Medicine; Visit Provider Nurse Practitioner Acute Care
DX: K14.6 Glossodynia (principal); Q38.3 Other congenital malformations of tongue; D64.9 Anemia, unspecified; Z11.3 Encounter for screening for infections with a predominantly sexual mode of transmission
CPT/HCPCS: 36415; 80053; 80061; 82306; 82607; 82746; 83036; 83540; 84443; 85025; 85652; 86140; 86704; 86706; 86709; 86803; 87340; 87389

== ENCOUNTER 2021-10-14 09:38 | Emergency (ER) | payer BC, SELFPAY ==
--- NOTE | ~2021-10-14 | CT_ITS ---
EXAMINATION: CT ABDOMEN AND PELVIS WITHOUT CONTRAST CLINICAL INFORMATION: Left lower quadrant pain COMPARISON: Abdominal ultrasound from 2020 TECHNIQUE: Multidetector volumetric imaging was performed from the superior aspect of the liver through the pubic symphysis. Sagittal and coronal reformatted images were obtained on the technologist's workstation. This CT examination was performed using dose optimization techniques as appropriate, variously including the following: *Automated exposure control *Adjustment of mA and/or kV according to patient size (this includes techniques or standardized protocols for targeted exams where dose is matched to indication/reason for exam; i.e. extremities or head) *Use of iterative reconstruction technique DLP: 587 mGy-cm FINDINGS: LUNG BASES: The visualized lung bases are unremarkable. LIVER, GALLBLADDER, AND BILIARY TREE: The liver is normal in size, shape, and attenuation. No focal hepatic lesion or biliary ductal dilatation is present. The gallbladder is unremarkable with no evidence of radiopaque gallstones, gallbladder wall thickening, or obvious pericholecystic inflammatory changes. PANCREAS: Unremarkable. SPLEEN: Unremarkable. ADRENAL GLANDS: Unremarkable. KIDNEYS AND URETERS: The kidneys are normal in size, shape, and attenuation. No hydronephrosis, hydroureter, or calculi seen. No perinephric stranding. BLADDER: Not optimally distended.. GASTROINTESTINAL TRACT: There is diverticulosis of the colon. There is wall thickening of the sigmoid colon and stranding of the surrounding fat suggestive of mild sigmoid diverticulitis. No evidence of obstruction, perforation or abscess is seen. Small and large bowel is otherwise normal. The appendix is not seen. There are no inflammatory changes in the right lower quadrant. There is a linear 1.3 cm density in the proximal stomach. Appearance is questionable for surgical or biopsy clip. Differential would include ingested foreign body. Clinical correlation recommended. ABDOMINAL WALL: No significant hernia is appreciated. LYMPH NODES: Normal. VASCULAR: Unremarkable. PELVIC VISCERA: Uterus appears to have been removed. No pelvic mass. OSSEOUS STRUCTURES: Unremarkable. CT/CT abdomen pelvis wo con IMPRESSION: Sigmoid diverticulitis. 1.3 cm linear radiopaque foreign body in the proximal stomach, question representing biopsy clip. Clinical correlation recommended. Fleischner guidelines were followed.
[2021-10-14 10:14] VITALS: BP 144/93; PULSE 88; TEMP 36.1; O2SAT 97; BMI 31.1
[2021-10-14 10:24] LABS: Basophils Percent Auto 0.3 % (0-2); Eosinophils Absolute Auto 0.1 X10*3/uL (0.0-0.4); Eosinophils Percent Auto 1.2 % (0-4); Hematocrit 39.2 % (37.0-47.0); Hemoglobin 12.5 g/dl (12.0-16.0); Imm Gran Abs Auto 0.05 X10*3/uL (0.00-0.03); Imm Gran Pct Auto 0.4 % (0.0-0.4); Lymphocytes Absolute Auto 2.1 X10*3/uL (1.2-4.9); Lymphocytes Percent Auto 18.5 % (20-40); MANUAL DIFF FLAG NO; Mean Corpuscular HGB Conc 31.9 g/dl (31.0-35.0); Mean Corpuscular Hemoglobin 27.7 pg (27.0-33.0); Mean Corpuscular Volume 86.9 fL (80.0-98.0); Mean Platelet Volume 8.7 fL (9.4-12.3); Monocytes Percent Auto 8.5 % (2-11); Neutrophils Absolute Auto 7.9 x10*3/uL (2.0-8.3); Neutrophils Percent Auto 71.1 % (45-73); Platelet Count 338 X10*3/uL (160-400); Red Blood Count 4.51 X10*6/uL (4.20-5.50); Red Cell Distribution Width 12.8 % (11.0-16.0); White Blood Count 11.1 X10*3/uL (4.8-10.8)
[2021-10-14 10:42] LABS: Alanine Aminotransferase 23 U/L (0-31); Alkaline Phosphatase 101 U/L (39-117); Anion Gap 12 (12-20); Aspartate Amino Transferase 14 U/L (5-31); Bilirubin Total 0.5 mg/dL (0.0-1.0); Blood Urea Nitrogen 9 mg/dL (9-16); Calcium 10.2 mg/dL (8.4-10.2); Carbon Dioxide 29 mmol/L (22-29); Chloride 104 mmol/L (96-108); Creatinine Clr Calc Pharmacy 74.5; Estimated Glomerular Filt Rate > 60; Glucose Random 123 mg/dL (60-115); Potassium 4.6 mmol/L (3.3-5.1); Sodium 140 mmol/L (135-145); Total Protein 7.5 g/dL (6.5-8.0)
[2021-10-14 11:06] LABS: Appearance Urine HAZY; Color Urine YELLOW; Glucose Urine UA NEG (NEG); Leukocyte Esterase Urine NEG (NEG); Nitrite Urine NEG (NEG); Specific Gravity - Urine 1.025 (1.005-1.025); UACC Culture Trigger NO; Urine Blood TRACE (NEG); Urine Ketones NEG (NEG); Urine Protein NEG (NEG-TRACE)
[2021-10-14 11:15] LABS: Amorphous Sediment Urine 1+ /LPF; Bacteria Urine 1+ /LPF; Squamous Epithelial Cell Urine 2+ /LPF
[2021-10-14 11:16] LABS: RBC Urine 0-2 /HPF (0); WBC Urine 0-2 /HPF (0-4)
--- NOTE | 2021-10-14 14:41 | ED.ABDPAIN ---
HPI - Abdominal Pain General Chief Complaint: Abdominal Pain Stated Complaint: flank pain Time Seen by Provider: 10/14/21 14:00 Source: patient Mode of arrival: ambulatory Limitations: no limitations History of Present Illness HPI narrative: 56-year-old female presents emergency room complaining of constipation left lower quadrant pain patient admits to having chronic constipation. She does take for medications for this but she also has chronic left lower quadrant abdominal pain which has been getting worse over the past few days and she has been able have a good bowel movement. She denies fevers chills chest pain radiates towards her back she denies fevers or chills and states she has not had a CT scan for this in the past. Related Data Home Medications Medication Instructions Recorded Confirmed cholecalciferol (vitamin D3) 25 25 mcg PO DAILY 04/01/20 07/31/21 mcg (1,000 unit) tablet Previous Rx's Medication Instructions Recorded lisinopril 5 mg tablet 5 mg PO DAILY #90 tab 03/23/21 methylcellulose (laxative) 500 mg 500 mg PO DAILY #90 tab 06/16/21 tablet (Citrucel) pantoprazole 40 mg tablet,delayed 40 mg PO DAILY #90 tab 06/16/21 release sennosides 8.6 mg capsule (senna) 17.2 mg PO BEDTIME PRN 30 Days 06/16/21 #180 cap hydrochlorothiazide 25 mg tablet 25 mg PO DAILY 90 Days #90 tab 07/22/21 meloxicam 7.5 mg tablet 7.5 mg PO DAILY 30 Days #90 tab 09/22/21 simvastatin 10 mg tablet 10 mg PO BEDTIME 90 Days #90 tab 09/22/21 amoxicillin 500 mg-potassium 1 tab PO BID 10 Days #20 tab 10/14/21 clavulanate 125 mg tablet (Augmentin) Allergies Allergy/AdvReac Type Severity Reaction Status Date / Time No Known Allergies [NKA] Allergy Mild NOT Verified 07/31/21 16:09 APPLICABLE Review of Systems Review of Systems Review of systems: General: Patient denies any fever chills recent illness or falls Musculoskeletal: Denies back pain or body aches or other injuries HEENT: denies headache, runny nose, ear pain Respiratory: denies shortness of breath, cough Cardiovascular: no chest pain or palpitations : denies dysuria, frequency Abdomen: Constipation no nausea vomiting left lower quadrant abdominal pain Extremities: no swelling, no pain Skin: no diaphoresis Yes all other systems are reviewed and are negative [facility] Past Medical History Medical History Acute allergic reaction Fatty liver GERD (gastroesophageal reflux disease) History of renal calculi Hypercholesterolemia Hypertension Irritable bowel syndrome Obesity (BMI 30-39.9) Surgical History H/O tubal ligation History of abdominal hysterectomy History of esophagogastroduodenoscopy (EGD) History of lithotripsy Hx of appendectomy Hx of arthroscopy of left knee Hx of arthroscopy of right knee Hx of colonoscopy Family History Family History Father Brain tumor Mother Hypertension CVD (cardiovascular disease) Social History Social History Housing: House Alcohol intake: never Patient Tobacco Use Status: Never used Tobacco e-Cigarette/Vaping Use: Never Used Second Hand Smoke Exposure: No Advance Directives: No Advance Directives Information Provided: No service: No Current occupational status: employed Physical Exam ED Vital Signs: Vital Signs - 24 hr 10/14/21 10:14 10/14/21 15:36 Temperature 96.9 F Pulse Rate 88 Respiratory Rate 18 Blood Pressure 144/93 H Pulse Oximetry 97 BMI result Body Mass Index 31.1 General: Well-appearing well-nourished in no signs of distress HEENT: Normocephalic atraumatic Neck: No signs of JVD, no masses no tenderness or lymphadenopathy Cardiovascular: Regular rate and rhythm Respiratory: Clear to auscultation bilaterally Abdomen: Soft tender to the LLQ no masses Extremities: Normal pedal pulses no signs of edema Skin: Dry warm no rashes Back: No tenderness full ROM MDM - Abdominal Pain MDM Narrative Medical decision making narrative: the patient is adamant this is new and different I will cover patient for CT scan to rule out obstruction or diverticulitis. This could also just be constipation I will give the patient fluids morphine and give patient for CT scan labs are unremarkable. White count 11 CT shows acute sigmoid diverticulitis patient states she can try oral antibiotics I will give a dose Unasyn for she goes she explained and given strict return precautions. Lab Data Result diagrams: 10/14/21 10:18 10/14/21 10:18 Labs: Lab Results 10/14/21 10/14/21 10/14/21 Range/Units 10:18 10:18 11:00 WBC 11.1 H (4.8-10.8) X10*3/uL RBC 4.51 (4.20-5.50) X10*6/uL Hgb 12.5 (12.0-16.0) g/dl Hct 39.2 (37.0-47.0) % MCV 86.9 (80.0-98.0) fL MCH 27.7 (27.0-33.0) pg MCHC 31.9 (31.0-35.0) g/dl RDW 12.8 (11.0-16.0) % Plt Count 338 (160-400) X10*3/uL MPV 8.7 L (9.4-12.3) fL Immature Gran % (Auto) 0.4 (0.0-0.4) % Neut % (Auto) 71.1 (45-73) % Lymph % (Auto) 18.5 L (20-40) % [place] % (Auto) 8.5 (2-11) % Eos % (Auto) 1.2 (0-4) % Baso % (Auto) 0.3 (0-2) % Lymph # (Auto) 2.1 (1.2-4.9) X10*3/uL [place] # (Auto) 1.0 (0.1-1.2) X10*3/uL Eos # (Auto) 0.1 (0.0-0.4) X10*3/uL Baso # (Auto) 0.0 (0.0-0.2) X10*3/uL Abs Immat Gran (auto) 0.05 H (0.00-0.03) X10*3/uL Absolute Neuts (auto) 7.9 (2.0-8.3) x10*3/uL Absolute Nucleated RBC 0.000 (0.0-0.012) X10*3/uL Nucleated RBC % (auto) 0.0 (0.0-0.2) /100WBC Sodium 140 (135-145) mmol/L Potassium 4.6 (3.3-5.1) mmol/L Chloride 104 (96-108) mmol/L Carbon Dioxide 29 (22-29) mmol/L Anion Gap 12 (12-20) BUN 9 (9-16) mg/dL Creatinine 0.81 (0.5-1.4) mg/dL Estim Creat Clear Calc 74.5 Estimated GFR > 60 Random Glucose 123 H (60-115) mg/dL Calcium 10.2 (8.4-10.2) mg/dL Total Bilirubin 0.5 (0.0-1.0) mg/dL AST 14 (5-31) U/L ALT 23 (0-31) U/L Alkaline Phosphatase 101 (39-117) U/L Total Protein 7.5 (6.5-8.0) g/dL Albumin 4.0 (3.5-5.0) g/dL Urine Color YELLOW Urine Appearance HAZY Urine pH 6.0 (5.0-8.0) Ur Specific [place] 1.025 (1.005-1.025) Urine Protein NEG (NEG-TRACE) MG/DL Urine Glucose (UA) NEG (NEG) MG/DL Urine Ketones NEG (NEG) MG/DL Urine Blood TRACE (NEG) Urine Nitrite NEG (NEG) Ur Leukocyte Esterase NEG (NEG) Urine RBC 0-2 (0) /HPF Urine WBC 0-2 (0-4) /HPF Ur Squamous Epith Cells 2+ /LPF Amorphous Sediment 1+ /LPF Urine Bacteria 1+ /LPF Discharge Plan Discharge Clinical Impression: Diverticulitis of sigmoid colon Patient Disposition: Home, Self-Care Instructions: Diverticulitis (ED), Diverticulitis Diet (ED) Additional Instructions: You have an infection in your abdomen called diverticulitis Hey. If you start having worsening pain or any other concerns he needs to come back to emergency department. Prescriptions: New amoxicillin-pot clavulanate [Augmentin] 500-125 mg tablet 1 tab PO BID 10 Days Qty: 20 0RF No Action lisinopril 5 mg tablet 5 mg PO DAILY Qty: 90 3RF hydrochlorothiazide 25 mg tablet 25 mg PO DAILY 90 Days Qty: 90 2RF simvastatin 10 mg tablet 10 mg PO BEDTIME 90 Days Qty: 90 2RF meloxicam 7.5 mg tablet 7.5 mg PO DAILY 30 Days Qty: 90 0RF cholecalciferol (vitamin D3) 25 mcg (1,000 unit) tablet 25 mcg PO DAILY 0RF Citrucel 500 mg tablet 500 mg PO DAILY Qty: 90 3RF Rx Instructions: take it with full glass of water pantoprazole 40 mg tablet,delayed release (DR/EC) 40 mg PO DAILY Qty: 90 3RF Rx Instructions: take one tablet half an hour before breakfast senna 8.6 mg capsule 17.2 mg PO BEDTIME PRN (Reason: constipation) 30 Days Qty: 180 0RF
--- NOTE | 2021-10-14 15:16 | PC.NURSE ---
pt to imaging at this time
[2021-10-14] MEDS: 0.9 % Sodium Chloride 1,000 ML 999 ML IV (15:31)
[2021-10-14 15:36] VITALS: RESP 18
[2021-10-14] MEDS: Morphine Sulfate 4 MG/ML CARTRIDGE IVPUSH (15:36)
[2021-10-14 17:45] VITALS: BP 146/77; PULSE 83; RESP 17; TEMP 37.5; O2SAT 94
[2021-10-14] MEDS: Ampicillin Sodium/Sulbactam Na 3 GM in 0.9 % Sodium Chloride 100 ML IV (17:55)
== END 2021-10-14 19:00 | disposition home or self-care (01) ==
PROVIDERS: Emergency Provider Student in an Organized Health Care Education/Training Program; PCP Internal Medicine
DX: K57.12 Diverticulitis of small intestine without perforation or abscess without bleeding (principal); R10.9 Unspecified abdominal pain; K59.00 Constipation, unspecified; Z79.899 Other long term (current) drug therapy
CPT/HCPCS: 36415; 74176; 80053; 81001; 85025; 96361; 96365; 96375; 99283; 99284; J0295; J2270

== ENCOUNTER 2022-01-30 11:13 | Inpatient (IN) | payer BC, SELFPAY ==
--- NOTE | ~2022-01-30 | CT_ITS ---
EXAMINATION: CT ABDOMEN AND PELVIS WITH CONTRAST CLINICAL INFORMATION: Left greater than right abdominal pain and tenderness. COMPARISON: CT abdomen and pelvis 10/14/2021 TECHNIQUE: Multidetector volumetric images were obtained from the superior aspect of the liver through the pubic symphysis following administration 85 mL of Omnipaque 350 intravenous contrast. Sagittal and coronal reformatted images were obtained on the technologist's workstation. Oral contrast: No This CT examination was performed using dose optimization techniques as appropriate, variously including the following: *Automated exposure control *Adjustment of mA and/or kV according to patient size (this includes techniques or standardized protocols for targeted exams where dose is matched to indication/reason for exam; i.e. extremities or head) *Use of iterative reconstruction technique DLP: 549 mGy-cm FINDINGS: LUNG BASES: Minimal bibasilar subsegmental atelectasis. LIVER, GALLBLADDER, AND BILIARY TREE: The liver is normal in size, shape, and attenuation. No focal hepatic lesion or biliary ductal dilatation is present. The gallbladder is unremarkable with no evidence of radiopaque gallstones, gallbladder wall thickening, or obvious pericholecystic inflammatory changes. PANCREAS: Unremarkable. SPLEEN: Unremarkable. ADRENAL GLANDS: Unremarkable. KIDNEYS AND URETERS: The kidneys are normal in size, shape, and attenuation. No hydronephrosis, hydroureter, or calculi seen. No perinephric stranding. BLADDER: Slightly diffusely thick-walled, which may be accentuated by limited distention. No focal bladder wall thickening. GASTROINTESTINAL TRACT: Sigmoid diverticulosis with segmental mural thickening and pericolonic inflammatory fat stranding consistent with acute diverticulitis. The pericolonic inflammatory change abuts the posterior dome of the bladder. No extraluminal gas. Small 1 cm peripherally enhancing low density intramural abscess on coronal image 38 axial image 73. No additional bowel wall thickening. No dilated bowel loops. Appendix not discretely visualized. No inflammatory change the cecal base. No ascites or free air. Small metallic density consistent with an endoscopic clip is again noted in the upper stomach. ABDOMINAL WALL: No significant hernia is appreciated. LYMPH NODES: No lymphadenopathy. VASCULAR: Normal caliber abdominal aorta. Mild vascular calcifications. PELVIC VISCERA: Status post hysterectomy. Grossly unremarkable appearance of the left ovary. OSSEOUS STRUCTURES: No acute fractures or suspicious osseous lesion. Mild multilevel degenerative disc disease. CT/CT abdomen pelvis w IV con IMPRESSION: 1. Acute sigmoid diverticulitis with small 1 cm peripherally enhancing intramural abscess. No extraluminal gas to suggest perforation. No pneumoperitoneum.
[2022-01-30 11:21] VITALS: BP 132/95; PULSE 105; RESP 15; TEMP 37.6; O2SAT 98; BMI 30.2
[2022-01-30 13:39] LABS: MANUAL DIFF FLAG NO
[2022-01-30 13:40] LABS: Basophils Absolute Auto 0.1 X10*3/uL (0.0-0.2); Basophils Percent Auto 0.3 % (0-2); Eosinophils Percent Auto 0.3 % (0-4); Hematocrit 42.7 % (37.0-47.0); Imm Gran Abs Auto 0.06 X10*3/uL (0.00-0.03); Imm Gran Pct Auto 0.4 % (0.0-0.4); Lymphocytes Absolute Auto 2.5 X10*3/uL (1.2-4.9); Lymphocytes Percent Auto 16.7 % (20-40); Mean Corpuscular HGB Conc 32.8 g/dl (31.0-35.0); Mean Corpuscular Hemoglobin 27.8 pg (27.0-33.0); Mean Corpuscular Volume 84.9 fL (80.0-98.0); Mean Platelet Volume 8.6 fL (9.4-12.3); Monocytes Absolute Auto 1.1 X10*3/uL (0.1-1.2); Neutrophils Absolute Auto 11.4 x10*3/uL (2.0-8.3); Neutrophils Percent Auto 75.3 % (45-73); Platelet Count 346 X10*3/uL (160-400); Red Blood Count 5.03 X10*6/uL (4.20-5.50); White Blood Count 15.1 X10*3/uL (4.8-10.8)
[2022-01-30 13:43] LABS: Appearance Urine Clear; Color Urine Yellow; Glucose Urine UA Negative (Negative); Leukocyte Esterase Urine Negative (Negative); Nitrite Urine Negative (Negative); Specific Gravity - Urine 1.015 (1.005-1.025); Urine Blood Negative (Negative); Urine Ketones Negative (Negative); Urine Protein Negative (Neg-Trace)
[2022-01-30 13:44] LABS: UPreg QC Valid YES; Urine Pregnancy NEGATIVE (NEGATIVE)
[2022-01-30 14:04] LABS: Anion Gap 16 (12-20); Blood Urea Nitrogen 11 mg/dL (9-16); Calcium 10.2 mg/dL (8.4-10.2); Carbon Dioxide 29 mmol/L (22-29); Chloride 97 mmol/L (96-108); Creatinine Clr Calc Pharmacy 71.7; Estimated Glomerular Filt Rate > 60; Glucose Random 104 mg/dL (60-115); Potassium 3.6 mmol/L (3.3-5.1); Sodium 138 mmol/L (135-145)
[2022-01-30 19:23] VITALS: BP 153/102; PULSE 100; RESP 16; TEMP 36.7; O2SAT 97
[2022-01-30 20:25] VITALS: BP 167/87; PULSE 102; RESP 18; TEMP 37.1; O2SAT 94
--- NOTE | 2022-01-30 20:38 | ED_ITS ---
HPI - Female Genitourinary General Chief complaint: Urogenital-Female Stated complaint: pelvic pain Time Seen by Provider: 01/30/22 20:12 Source: patient Mode of arrival: ambulatory Limitations: no limitations History of Present Illness HPI Narrative: 56-year-old female with history of HTN, HLD, obesity, GERD and hx sigmoid diverticulitis in September of 2021 who presents to the ER for evaluation of lower abdominal pain that has been worsening for the last 3 days. She reports the pain is worse on her left lower abdomen than her right. She is status post appendectomy in the past, hysterectomy and she has had 3 C-sections. No other abdominal surgeries. She reports normal bowel movements and normal p.o. intake. No fever or chills. No diarrhea, no nausea or vomiting. She states the pain is about an 8/10 and constant. She reports increased urinary frequency but denies any dysuria. She is sexually active with her for the last 40 years, no vaginal discharge. MD elicited complaint: pelvic pain Pertinent past history: other (History of sigmoid diverticulitis) Onset (ago): day(s) (3) Location of symptoms: pelvis Severity: severe Female Urogenital Radiation: LLQ and LRQ Severity scale (1-10): 8 Quality of pain: sharp and stabbing Vaginal discharge: none Vaginal bleeding: none Urinary symptoms: Urgency and Frequency Exacerbating factors: palpation Relieving factors: none Associated symptoms: abdominal pain Treatment prior to arrival: none Sexual activity: Yes Patient : No Related Data Home Medications Medication Instructions Recorded Confirmed cholecalciferol (vitamin D3) 25 25 mcg PO DAILY 04/01/20 07/31/21 mcg (1,000 unit) tablet Previous Rx's Medication Instructions Recorded lisinopril 5 mg tablet 5 mg PO DAILY #90 tabs 03/23/21 methylcellulose (laxative) 500 mg 500 mg PO DAILY #90 tabs 06/16/21 tablet (Citrucel) pantoprazole 40 mg tablet,delayed 40 mg PO DAILY #90 tabs 06/16/21 release sennosides 8.6 mg capsule (senna) 17.2 mg PO BEDTIME PRN 06/16/21 constipation 30 days #180 caps hydrochlorothiazide 25 mg tablet 25 mg PO DAILY 90 days #90 tabs 07/22/21 meloxicam 7.5 mg tablet 7.5 mg PO DAILY 30 days #90 tabs 09/22/21 simvastatin 10 mg tablet 10 mg PO BEDTIME 90 days #90 tabs 09/22/21 amoxicillin 500 mg-potassium 1 tab PO BID 10 days #20 tabs 10/14/21 clavulanate 125 mg tablet (Augmentin) fluconazole 150 mg tablet 150 mg PO ONCE 1 day #1 tab 10/26/21 (Diflucan) Allergies Allergy/AdvReac Type Severity Reaction Status Date / Time No Known Allergies [NKA] Allergy Mild NOT Verified 07/31/21 16:09 APPLICABLE Review of Systems Review of Systems: Constitutional: No Fever, No Chills ENT/Mouth: No sore throat, No Rhinorrhea, No Swallowing Difficulty Cardiovascular: No Chest Pain, No SOB, No Orthopnea, No Edema Respiratory: No Cough, No Sputum, No Wheezing, No dyspnea Gastrointestinal: No Nausea, No Vomiting, No Diarrhea, + abdominal Pain, No Hematochezia, No Melena Genitourinary: No Dysuria, + Urinary Frequency, No Hematuria, No vaginal discharge Musculoskeletal: No joint pain, No Myalgias Skin: No Skin Lesions, No rash Neuro: No Weakness, No Numbness, No Dizziness, No Headache Psych: No Anxiety/Panic, No Depression Heme/Lymph: No Bruising, No Lymphadenopathy Endocrine: No Polyuria, No Polydipsia PMFSH Past Medical History Medical History Acute allergic reaction Fatty liver GERD (gastroesophageal reflux disease) History of renal calculi Hypercholesterolemia Hypertension Irritable bowel syndrome Obesity (BMI 30-39.9) Surgical History H/O tubal ligation History of abdominal hysterectomy History of esophagogastroduodenoscopy (EGD) History of lithotripsy Hx of appendectomy Hx of arthroscopy of left knee Hx of arthroscopy of right knee Hx of colonoscopy Family History Family History Father Brain tumor Mother Hypertension CVD (cardiovascular disease) Social History Social History Housing: House Alcohol intake: never Patient Tobacco Use Status: Never used Tobacco e-Cigarette/Vaping Use: Never Used Second Hand Smoke Exposure: No Advance Directives: No Advance Directives Information Provided: No Patient : No service: No Current occupational status: employed Physical Exam Vital Signs: Vital Signs: Last Vital Signs Temp 98.8 F 01/30/22 20:25 Pulse 102 H 01/30/22 20:25 Resp 18 01/30/22 20:25 BP 167/87 H 01/30/22 20:25 Pulse Ox 94 01/30/22 20:25 O2 Del Method 01/30/22 20:25 BMI result Body Mass Index 30.2 Appearance: Alert. Oriented X3. No acute distress. Eyes: Pupils equal, round and reactive to light. ENT: Pharynx normal. Neck: Normal inspection. Neck supple. CVS: Normal heart rate and rhythm. Pulses normal. Respiratory: No respiratory distress. Breath sounds normal. Abdomen: Obese, Soft with moderate LLQ tenderness with guarding, normal +BS x4. pelvic deferred Skin: Skin warm and dry. Normal skin color. Normal skin turgor. No rashes. Extremities: No lower extremity edema. Neuro: Oriented X 3. No motor deficit. No sensory deficit. Course Course Course Narrative: 56-year-old female with history of HTN, HLD, sigmoid diverticulitis 4 months ago who presents to the ER for evaluation of ?pelvic pain? for the last 3 days. On examination she has left lower quadrant tenderness and central lower abdominal tenderness with rebound. She has leukocytosis of 15,000. Concern for recurrent diverticulitis. CT scan is pending at this time. Pain control and antiemetics have been ordered. Dispo pending result in improvement. Reevaluation(s) Reevaluation #1: CT scan is showing acute sigmoid diverticulitis with an intraluminal 1 cm abscess. Will plan to start Zosyn, IV fluids. Will check lactic acid and cultures. Will plan to admit to surgery for complicated, recurrent diverticulitis. Reevaluation #2: Spoke with Dr. Chen who will admit the patient for further management. MDM - Female Genitourinary Lab Data Result diagrams: 01/30/22 13:18 01/30/22 13:18 Labs: Lab Results 01/30/22 01/30/22 01/30/22 Range/Units 13:18 13:18 13:18 WBC 15.1 H (4.8-10.8) X10*3/uL RBC 5.03 (4.20-5.50) X10*6/uL Hgb 14.0 (12.0-16.0) g/dl Hct 42.7 (37.0-47.0) % MCV 84.9 (80.0-98.0) fL MCH 27.8 (27.0-33.0) pg MCHC 32.8 (31.0-35.0) g/dl RDW 13.0 (11.0-16.0) % Plt Count 346 (160-400) X10*3/uL MPV 8.6 L (9.4-12.3) fL Immature Gran % (Auto) 0.4 (0.0-0.4) % Neut % (Auto) 75.3 H (45-73) % Lymph % (Auto) 16.7 L (20-40) % [place] % (Auto) 7.0 (2-11) % Eos % (Auto) 0.3 (0-4) % Baso % (Auto) 0.3 (0-2) % Lymph # (Auto) 2.5 (1.2-4.9) X10*3/uL [place] # (Auto) 1.1 (0.1-1.2) X10*3/uL Eos # (Auto) 0.0 (0.0-0.4) X10*3/uL Baso # (Auto) 0.1 (0.0-0.2) X10*3/uL Abs Immat Gran (auto) 0.06 H (0.00-0.03) X10*3/uL Absolute Neuts (auto) 11.4 H (2.0-8.3) x10*3/uL Absolute Nucleated RBC 0.000 (0.0-0.012) X10*3/uL Nucleated RBC % (auto) 0.0 (0.0-0.2) /100WBC Sodium 138 (135-145) mmol/L Potassium 3.6 D (3.3-5.1) mmol/L Chloride 97 (96-108) mmol/L Carbon Dioxide 29 (22-29) mmol/L Anion Gap 16 (12-20) BUN 11 (9-16) mg/dL Creatinine 0.83 (0.5-1.4) mg/dL Estim Creat Clear Calc 71.7 Estimated GFR > 60 Random Glucose 104 (60-115) mg/dL Calcium 10.2 (8.4-10.2) mg/dL Urine Color Yellow Urine Appearance Clear Urine pH 7.0 (5.0-9.0) Ur Specific [place] 1.015 (1.005-1.025) Urine Protein Negative (Neg-Trace) mg/dL Urine Glucose (UA) Negative (Negative) mg/dL Urine Ketones Negative (Negative) mg/dL Urine Blood Negative (Negative) Urine Nitrite Negative (Negative) Ur Leukocyte Esterase Negative (Negative) Urine Test (NEGATIVE) 01/30/22 Range/Units 13:18 WBC (4.8-10.8) X10*3/uL RBC (4.20-5.50) X10*6/uL Hgb (12.0-16.0) g/dl Hct (37.0-47.0) % MCV (80.0-98.0) fL MCH (27.0-33.0) pg MCHC (31.0-35.0) g/dl RDW (11.0-16.0) % Plt Count (160-400) X10*3/uL MPV (9.4-12.3) fL Immature Gran % (Auto) (0.0-0.4) % Neut % (Auto) (45-73) % Lymph % (Auto) (20-40) % [place] % (Auto) (2-11) % Eos % (Auto) (0-4) % Baso % (Auto) (0-2) % Lymph # (Auto) (1.2-4.9) X10*3/uL [place] # (Auto) (0.1-1.2) X10*3/uL Eos # (Auto) (0.0-0.4) X10*3/uL Baso # (Auto) (0.0-0.2) X10*3/uL Abs Immat Gran (auto) (0.00-0.03) X10*3/uL Absolute Neuts (auto) (2.0-8.3) x10*3/uL Absolute Nucleated RBC (0.0-0.012) X10*3/uL Nucleated RBC % (auto) (0.0-0.2) /100WBC Sodium (135-145) mmol/L Potassium (3.3-5.1) mmol/L Chloride (96-108) mmol/L Carbon Dioxide (22-29) mmol/L Anion Gap (12-20) BUN (9-16) mg/dL Creatinine (0.5-1.4) mg/dL Estim Creat Clear Calc Estimated GFR Random Glucose (60-115) mg/dL Calcium (8.4-10.2) mg/dL Urine Color Urine Appearance Urine pH (5.0-9.0) Ur Specific [place] (1.005-1.025) Urine Protein (Neg-Trace) mg/dL Urine Glucose (UA) (Negative) mg/dL Urine Ketones (Negative) mg/dL Urine Blood (Negative) Urine Nitrite (Negative) Ur Leukocyte Esterase (Negative) Urine Test NEGATIVE (NEGATIVE) Discharge Plan Discharge Clinical Impression: Diverticulitis of intestine with abscess Patient Disposition: Admitted As Inpatient
[2022-01-30] MEDS: iohexoL 350 MG/ML 100 ML INFUS..BTL IV (20:49)
[2022-01-30] MEDS: ondansetron HCL 4 MG/2 ML VIAL IVPUSH (21:06)
[2022-01-30] MEDS: Ketorolac Tromethamine 30 MG/ML VIAL IVPUSH (21:06)
[2022-01-30] MEDS: Morphine Sulfate 4 MG/ML CARTRIDGE IVPUSH (21:06)
--- NOTE | 2022-01-30 21:14 | PC.NURSE ---
Assumed care of pt. at 2054. Pt. c/o abdominal pain, 12/30. Pt. ambulating back to bed from bathroom upon entering the room. Pt. medicated per JUL. Resting in bed at this time. Will continue to monitor.
--- NOTE | 2022-01-30 21:39 | PM.HPGS ---
History of Present Illness History of Present Illness Date of Service: 01/31/22 Chief complaint: diverticulitis Narrative: Christel Correa is a 56 year old female who experience an episode of sigmoid diverticulitis requiring hospitalization earlier this year. She notes this last episode started several days ago and is improved since starting antibiotics at admission. However, she is not passing any gas and denies any bowel movements. She otherwise denies chest pain, difficulty breathing or shortness of breath. Review of Systems Review of Systems: Yes all other systems are reviewed and are negative Constitutional: Constitutional: Reports as per [facility] Past Medical History Medical History Acute allergic reaction Fatty liver GERD (gastroesophageal reflux disease) History of renal calculi Hypercholesterolemia Hypertension Irritable bowel syndrome Obesity (BMI 30-39.9) Family History Family History Father Brain tumor Mother Hypertension CVD (cardiovascular disease) Surgical History Surgical History H/O tubal ligation History of abdominal hysterectomy History of esophagogastroduodenoscopy (EGD) History of lithotripsy Hx of appendectomy Hx of arthroscopy of left knee Hx of arthroscopy of right knee Hx of colonoscopy Social History Social History Housing: House Alcohol intake: never Patient Tobacco Use Status: Never used Tobacco e-Cigarette/Vaping Use: Never Used Second Hand Smoke Exposure: No Use of substances other than those prescribed or required for medical reasons: No Advance Directives: No Advance Directives Information Provided: No Patient : No service: No Current occupational status: employed Meds Allergies Allergy/AdvReac Type Severity Reaction Status Date / Time No Known Allergies [NKA] Allergy Mild NOT Verified 07/31/21 16:09 APPLICABLE Active Medications: Current Medications Docusate Sodium (Docusate Sodium 100 Mg Capsule) 200 mg PO BID TALYA Heparin Sodium (Porcine) (Heparin Sodium,Porcine 5,000 Unit/Ml Vial) 5,000 unit SUBCUT Q12H TALYA Piperacillin Sod/Tazobactam (Sod 3.375 gm/ Sodium Chloride) 50 mls @ 100 mls/hr IV ONCE ONE Stop: 01/30/22 21:50 Sodium Chloride (Ns) 1,000 mls @ 999 mls/hr IVCONT .Q1H1M [facility] Stop: 01/30/22 22:30 Piperacillin Sod/Tazobactam (Sod 3.375 gm/ Sodium Chloride) 50 mls @ 100 mls/hr IV Q6H [facility] Pharmacy Consult (Consult Rx Perform Med Rec) 1 each MISCELLANE ONCE PRN PRN Reason: Consult order Home Medications Medication Instructions Recorded Confirmed Last Taken Type atorvastatin 10 mg tablet 1 tab PO DAILY 01/31/22 01/31/22 Unknown History clotrimazole 10 mg rama 1 tab PO TID 01/31/22 01/31/22 Unknown History hydrochlorothiazide 25 mg tablet 1 tab PO DAILY 01/31/22 01/31/22 Unknown History pantoprazole 40 mg tablet,delayed 1 tab PO QAM 01/31/22 01/31/22 Unknown History release simvastatin 10 mg tablet 1 tab PO BEDTIME 01/31/22 01/31/22 Unknown History Physical Exam Vital Signs: Vital Signs: Last Vital Signs Temp 98.8 F 01/30/22 20:25 Pulse 102 H 01/30/22 20:25 Resp 18 01/30/22 20:25 BP 167/87 H 01/30/22 20:25 Pulse Ox 94 01/30/22 20:25 O2 Del Method 01/30/22 20:25 BMI result Body Mass Index 30.2 The patient is non-toxic & in good spirits NC/AT, PERRLA, EOMI Mood, affect & judgment all appear appropriate Sclera anicteric conjunctiva pink and moist Oropharynx is clear with no aphthous ulcers, Mallampati class 4, mucous membranes moist Neck is supple with no masses, adenopathy or bruits Thyroid is nontender and free of dominant masses Heart is regular, normal S1-S2 no rubs or murmurs Lungs are clear and equal anteriorly with no audible wheezing, rubs or dullness to percussion No CVA tenderness present Abdomen is overweight with no demonstrable hernias. Infraumbilical/midline and left lower quadrant pain with irritation to percussion is present. No HSM, masses or bruits are present. Rectal exam is deferred Skin has good turgor and is free of rashes Extremities free of cyanosis clubbing edema Results Results Labs: Short CBC 01/30/22 Range/Units 13:18 WBC 15.1 H (4.8-10.8) X10*3/uL Hgb 14.0 (12.0-16.0) g/dl Hct 42.7 (37.0-47.0) % Plt Count 346 (160-400) X10*3/uL BMP 01/30/22 13:18 Sodium 138 Potassium 3.6 D Chloride 97 Carbon Dioxide 29 BUN 11 Creatinine 0.83 Calcium 10.2 Urine 01/30/22 01/30/22 Range/Units 13:18 13:18 Urine Color Yellow Urine Appearance Clear Urine pH 7.0 (5.0-9.0) Ur Specific [place] 1.015 (1.005-1.025) Urine Protein Negative (Neg-Trace) mg/dL Urine Glucose (UA) Negative (Negative) mg/dL Urine Test NEGATIVE (NEGATIVE) Abdomen CT scan report/results: report reviewed and image reviewed CT scan - pelvis: report reviewed and image reviewed Assessment and Plan (1) Diverticulitis of intestine with abscess: Status: Acute (2) Obesity (BMI 30-39.9): Status: Acute Plan Admit NPO, IVF Zosyn Trend labs Quality Stroke Does the patient have a stroke diagnosis?: No VTE Prior VTE?: No VTE Risk Level:: Medical - moderate - high VTE Device Contraindication: N/A - Device Ordered VTE Drug Contraindication: N/A - Med Ordered Procedures Date of Service Date of Service: 01/31/22
[2022-01-30 21:53] LABS: Lactic Acid 0.7 mmol/L (0.5-2.0)
[2022-01-30 21:58] LABS: COVID-19 Test Negative (Negative)
[2022-01-30] MEDS: 0.9 % Sodium Chloride 1,000 ML 999 ML IVCONT (22:15)
[2022-01-30] MEDS: Piperacillin Sodium/Tazobactam 3.375 GM in 0.9 % Sodium Chloride 50 ML IV (22:18)
--- NOTE | 2022-01-30 22:20 | PC.NURSE ---
PT a&o, no sob or chest heart. pt medicated per Jul.
[2022-01-30 22:49] VITALS: BP 116/75; PULSE 83; RESP 16; TEMP 36.7; O2SAT 98
[2022-01-30] MEDS: Heparin Sodium,Porcine 5,000 UNIT/ML VIAL 5000 UNIT SUBCUT (23:22)
[2022-01-30] MEDS: 0.9 % Sodium Chloride Flush 3 ML SYRINGE IVFLUSH (23:22)
[2022-01-30 23:51] VITALS: BP 109/67; PULSE 83; RESP 16; TEMP 36.7; O2SAT 98
[2022-01-31] MEDS: HYDROmorphone HCl 1 MG/ML SYRINGE 0.5 MG IVPUSH ×2 (03:51→13:08)
[2022-01-31 04:00] VITALS: BP 124/75; PULSE 74; RESP 16; TEMP 36.7; O2SAT 98
[2022-01-31 06:43] LABS: MANUAL DIFF FLAG NO
[2022-01-31 06:52] LABS: Basophils Percent Auto 0.3 % (0-2); Eosinophils Absolute Auto 0.1 X10*3/uL (0.0-0.4); Eosinophils Percent Auto 0.7 % (0-4); Hematocrit 38.1 % (37.0-47.0); Hemoglobin 12.3 g/dl (12.0-16.0); Imm Gran Abs Auto 0.06 X10*3/uL (0.00-0.03); Imm Gran Pct Auto 0.5 % (0.0-0.4); Lymphocytes Absolute Auto 1.8 X10*3/uL (1.2-4.9); Lymphocytes Percent Auto 16.6 % (20-40); Mean Corpuscular HGB Conc 32.3 g/dl (31.0-35.0); Mean Corpuscular Hemoglobin 28.1 pg (27.0-33.0); Mean Platelet Volume 8.8 fL (9.4-12.3); Monocytes Absolute Auto 0.9 X10*3/uL (0.1-1.2); Monocytes Percent Auto 8.1 % (2-11); Neutrophils Absolute Auto 8.2 x10*3/uL (2.0-8.3); Neutrophils Percent Auto 73.8 % (45-73); Platelet Count 290 X10*3/uL (160-400); Red Blood Count 4.38 X10*6/uL (4.20-5.50); Red Cell Distribution Width 12.9 % (11.0-16.0); White Blood Count 11.1 X10*3/uL (4.8-10.8)
[2022-01-31] MEDS: Piperacillin Sodium/Tazobactam 3.375 GM in 0.9 % Sodium Chloride 50 ML IV ×3 (07:15→17:35)
[2022-01-31 07:22] LABS: Anion Gap 14 (12-20); Blood Urea Nitrogen 12 mg/dL (9-16); Calcium 9.3 mg/dL (8.4-10.2); Carbon Dioxide 30 mmol/L (22-29); Chloride 99 mmol/L (96-108); Creatinine Clr Calc Pharmacy 71.7; Estimated Glomerular Filt Rate > 60; Glucose Random 135 mg/dL (60-115); Potassium 4.7 mmol/L (3.3-5.1); Sodium 138 mmol/L (135-145)
--- NOTE | 2022-01-31 08:30 | PHA.MEDREC ---
Pharmacy Consult ? Medication Reconciliation Pharmacy has completed the medication reconciliation. Checked over med rec done by nursing
--- NOTE | 2022-01-31 08:47 | PC.NURSE ---
Dr. Chen gave verbal order to start LR at 100 ml/hr and he will put order in.
[2022-01-31 09:45] VITALS: BP 125/81; PULSE 77; RESP 16; O2SAT 93
[2022-01-31] MEDS: Lactated Ringers 1,000 ML 100 ML IVCONT (10:25)
--- NOTE | 2022-01-31 11:11 | MHC.CM.PN ---
Patient lives in a house with her and she required no DME nor services [employer]. Home self care is the goal and CM has initiated and will follow for dc planning. Patient has received LonoCloud/Wavestream vax x3 and her PCP is Dr. Isaac Field.
[2022-01-31] MEDS: ondansetron HCL 4 MG/2 ML VIAL IVPUSH ×2 (14:32→17:35)
[2022-01-31 16:00] VITALS: BP 132/74; PULSE 84; RESP 16; TEMP 36.5; O2SAT 98
[2022-01-31] MEDS: 0.9 % Sodium Chloride Flush 3 ML SYRINGE IVFLUSH (17:36)
[2022-01-31 19:05] VITALS: BP 147/76; PULSE 81; RESP 16; TEMP 36.5; O2SAT 93
[2022-01-31] MEDS: Docusate Sodium 100 MG CAPSULE 200 MG PO (20:31)
[2022-01-31] MEDS: Heparin Sodium,Porcine 5,000 UNIT/ML VIAL 5000 UNIT SUBCUT (20:32)
[2022-02-01] VITALS: BP 146/89; PULSE 81; RESP 17; TEMP 36.1; O2SAT 94
[2022-02-01] MEDS: Piperacillin Sodium/Tazobactam 3.375 GM in 0.9 % Sodium Chloride 50 ML IV ×5 (00:17→22:10)
[2022-02-01 04:00] VITALS: BP 118/69; PULSE 81; RESP 18; TEMP 36.4; O2SAT 96
[2022-02-01] MEDS: Lactated Ringers 1,000 ML 100 ML IVCONT ×2 (05:43→17:39)
[2022-02-01] MEDS: Omeprazole 20 MG CAPSULE.DR PO (05:44)
[2022-02-01 06:40] LABS: MANUAL DIFF FLAG NO
[2022-02-01 06:49] LABS: Basophils Percent Auto 0.4 % (0-2); Eosinophils Absolute Auto 0.1 X10*3/uL (0.0-0.4); Eosinophils Percent Auto 1.2 % (0-4); Hematocrit 37.3 % (37.0-47.0); Imm Gran Abs Auto 0.02 X10*3/uL (0.00-0.03); Imm Gran Pct Auto 0.3 % (0.0-0.4); Lymphocytes Absolute Auto 2.2 X10*3/uL (1.2-4.9); Lymphocytes Percent Auto 28.3 % (20-40); Mean Corpuscular HGB Conc 32.2 g/dl (31.0-35.0); Mean Corpuscular Hemoglobin 27.8 pg (27.0-33.0); Mean Corpuscular Volume 86.3 fL (80.0-98.0); Mean Platelet Volume 8.9 fL (9.4-12.3); Monocytes Absolute Auto 0.4 X10*3/uL (0.1-1.2); Monocytes Percent Auto 5.5 % (2-11); Neutrophils Absolute Auto 4.9 x10*3/uL (2.0-8.3); Neutrophils Percent Auto 64.3 % (45-73); Platelet Count 305 X10*3/uL (160-400); Red Blood Count 4.32 X10*6/uL (4.20-5.50); Red Cell Distribution Width 12.3 % (11.0-16.0); White Blood Count 7.6 X10*3/uL (4.8-10.8)
[2022-02-01 07:09] LABS: Anion Gap 12 (12-20); Blood Urea Nitrogen 10 mg/dL (9-16); Calcium 9.3 mg/dL (8.4-10.2); Carbon Dioxide 32 mmol/L (22-29); Chloride 101 mmol/L (96-108); Creatinine Clr Calc Pharmacy 83.7; Estimated Glomerular Filt Rate > 60; Glucose Random 92 mg/dL (60-115); Potassium 3.9 mmol/L (3.3-5.1); Sodium 141 mmol/L (135-145)
--- NOTE | 2022-02-01 07:37 | P.PNGS_ITS ---
Subjective Subjective Date of Service: 02/01/22 Patient reports: feels better Interval history: The patient reports interval improvement in her pain and also her nausea and vomiting. She otherwise denies any chest pain, difficulty breathing, shortness of breath or neurological symptoms. She has passed a little bit of gas but not had a bowel movement yet. She is trying to get up and move around but does note that the lower abdominal pain limits her somewhat. Physical Exam Vital Signs: Vital Signs: Last Vital Signs Temp 97.6 F 02/01/22 04:00 Pulse 81 02/01/22 04:00 Resp 18 02/01/22 04:00 BP 118/69 02/01/22 04:00 Pulse Ox 96 02/01/22 04:00 O2 Del Method 02/01/22 04:00 O2 Flow Rate 2 01/31/22 04:00 BMI result Body Mass Index 30.2 NC/AT, PERRLA, EOMI Abdomen is obese and soft with significantly less tenderness and no peritoneal sign to percussion No lower extremity swelling is appreciated or cords are palpable Neurologically, she grossly appears to be intact Objective Data Active Medications Docusate Sodium (Docusate Sodium 100 Mg Capsule) 200 mg PO BID [facility] Last Admin: 01/31/22 20:31 Dose: 200 mg Documented By: EMANUEL Heparin Sodium (Porcine) (Heparin Sodium,Porcine 5,000 Unit/Ml Vial) 5,000 unit SUBCUT Q12H [facility] Last Admin: 01/31/22 20:32 Dose: 5,000 unit Documented By: EMANUEL Hydrochlorothiazide (Hydrochlorothiazide 25 Mg Tablet) 25 mg PO DAILY [facility]; Protocol Hydromorphone HCl (Hydromorphone Hcl 1 Mg/Ml Syringe) 0.5 mg IVPUSH Q4H PRN; Protocol PRN Reason: Pain, Severe (Pain Scale 7-10) Last Admin: 01/31/22 13:08 Dose: 0.5 mg Documented By: RAFIQ Piperacillin Sod/Tazobactam (Sod 3.375 gm/ Sodium Chloride) 50 mls @ 100 mls/hr IV Q6H [facility] Last Infusion: 02/01/22 06:27 Dose: 0 mls/hr Documented By: EMANUEL Lactated Ringer's (Lr) 1,000 mls @ 100 mls/hr IVCONT .Q10H [facility] Last Admin: 02/01/22 05:43 Dose: 100 mls/hr Documented By: EMANUEL Promethazine HCl 6.25 mg/ (Sodium Chloride) 50.25 mls @ 201 mls/hr IV Q4H PRN PRN Reason: Nausea and Vomiting Omeprazole (Omeprazole 20 Mg Capsule.Dr) 20 mg PO DAILY@0630 [facility] Last Admin: 02/01/22 05:44 Dose: 20 mg Documented By: EMANUEL Ondansetron HCl (Ondansetron Hcl 4 Mg/2 Ml Vial) 8 mg IVPUSH Q8H PRN PRN Reason: Nausea and Vomiting Pharmacy Consult (Consult Rx Perform Med Rec) 1 each MISCELLANE ONCE PRN PRN Reason: Consult order Sodium Chloride (0.9 % Sodium Chloride Flush 3 Ml Syringe) 3 ml IVFLUSH QSHIFT [facility] Last Admin: 02/01/22 00:26 Dose: Not Given Documented By: EMANUEL Non-Admin Reason: IV Running Labs CBC & Chem 7: 02/01/22 05:54 02/01/22 05:54 Labs: Laboratory Results - last 24 hr 02/01/22 02/01/22 05:54 05:54 MCV 86.3 MCH 27.8 MCHC 32.2 RDW 12.3 Plt Count 305 MPV 8.9 L Immature Gran % (Auto) 0.3 Neut % (Auto) 64.3 Lymph % (Auto) 28.3 [place] % (Auto) 5.5 Eos % (Auto) 1.2 Baso % (Auto) 0.4 Lymph # (Auto) 2.2 [place] # (Auto) 0.4 Eos # (Auto) 0.1 Baso # (Auto) 0.0 Abs Immat Gran (auto) 0.02 Absolute Neuts (auto) 4.9 Absolute Nucleated RBC 0.000 Nucleated RBC % (auto) 0.0 Anion Gap 12 Estim Creat Clear Calc 83.7 Estimated GFR > 60 Random Glucose 92 Calcium 9.3 Microbiology Microbiology Results: Microbiology 01/30/22 22:14 Blood Culture - Preliminary Blood - Venous No growth after 24 hours. 01/30/22 22:14 Blood Culture - Preliminary Blood - Venous No growth after 24 hours. Procedures Date of Service Date of Service: 02/01/22 Progress Note: A&P Assessment and plan (1) Diverticulitis of intestine with abscess: Status: Acute (2) Obesity (BMI 30-39.9): Status: Acute (3) Hypertension: Status: Acute Plan Continue bowel rest pending better bowel function. IVF, Abx Trend labs. Time Spent With Patient Time: Total time spent is greater than 50% in coordination of care (as documented) at patient's floor/unit and/or counseling patient: Quality Stroke Does the patient have a stroke diagnosis?: No VTE Prior VTE?: No VTE Risk Level:: Medical - moderate - high VTE Device Contraindication: N/A - Device Ordered VTE Drug Contraindication: N/A - Med Ordered
[2022-02-01 08:00] VITALS: BP 136/87; PULSE 72; RESP 18; TEMP 36.4; O2SAT 94
[2022-02-01] MEDS: Docusate Sodium 100 MG CAPSULE 200 MG PO ×2 (09:08→22:10)
[2022-02-01] MEDS: hydroCHLOROthiazide 25 MG TABLET PO (09:08)
[2022-02-01] MEDS: Heparin Sodium,Porcine 5,000 UNIT/ML VIAL 5000 UNIT SUBCUT ×2 (09:08→22:10)
[2022-02-01 11:53] VITALS: BP 162/89; PULSE 77; RESP 18; TEMP 36.4; O2SAT 94
[2022-02-01 16:00] VITALS: BP 183/92; PULSE 77; RESP 17; TEMP 36.1; O2SAT 91
[2022-02-01 19:59] VITALS: BP 140/72; PULSE 74; RESP 18; TEMP 36.3; O2SAT 93
[2022-02-02] VITALS: PULSE 85; RESP 18; TEMP 36.4; O2SAT 97
[2022-02-02 04:00] VITALS: BP 138/72; PULSE 68; RESP 18; TEMP 36.4; O2SAT 97
[2022-02-02] MEDS: Lactated Ringers 1,000 ML 100 ML IVCONT ×2 (05:17→21:23)
[2022-02-02] MEDS: Piperacillin Sodium/Tazobactam 3.375 GM in 0.9 % Sodium Chloride 50 ML IV ×3 (05:17→23:11)
[2022-02-02] MEDS: Omeprazole 20 MG CAPSULE.DR PO (05:17)
[2022-02-02 06:43] LABS: Basophils Percent Auto 0.6 % (0-2); Mean Corpuscular HGB Conc 32.6 g/dl (31.0-35.0); PLT CLUMP 1; SCAN SMEAR FLAG 1
[2022-02-02 06:45] LABS: Eosinophils Absolute Auto 0.1 X10*3/uL (0.0-0.4); Eosinophils Percent Auto 1.9 % (0-4); Hematocrit 36.2 % (37.0-47.0); Hemoglobin 11.8 g/dl (12.0-16.0); Imm Gran Abs Auto 0.03 X10*3/uL (0.00-0.03); Imm Gran Pct Auto 0.4 % (0.0-0.4); Lymphocytes Absolute Auto 1.7 X10*3/uL (1.2-4.9); Lymphocytes Percent Auto 24.3 % (20-40); MANUAL DIFF FLAG SCAN; Mean Corpuscular Hemoglobin 27.5 pg (27.0-33.0); Mean Corpuscular Volume 84.4 fL (80.0-98.0); Mean Platelet Volume 10.2 fL (9.4-12.3); Monocytes Absolute Auto 0.4 X10*3/uL (0.1-1.2); Monocytes Percent Auto 6.2 % (2-11); Neutrophils Absolute Auto 4.6 x10*3/uL (2.0-8.3); Neutrophils Percent Auto 66.6 % (45-73); Red Blood Count 4.29 X10*6/uL (4.20-5.50); Red Cell Distribution Width 12.4 % (11.0-16.0)
[2022-02-02 07:01] LABS: Anion Gap 16 (12-20); Blood Urea Nitrogen 9 mg/dL (9-16); Calcium 8.7 mg/dL (8.4-10.2); Carbon Dioxide 24 mmol/L (22-29); Chloride 104 mmol/L (96-108); Creatinine Clr Calc Pharmacy 82.6; Estimated Glomerular Filt Rate > 60; Glucose Random 73 mg/dL (60-115); Potassium 4.3 mmol/L (3.3-5.1); Sodium 140 mmol/L (135-145)
[2022-02-02 07:21] LABS: Platelet Count 216 X10*3/uL (160-400); White Blood Count 6.9 X10*3/uL (4.8-10.8)
[2022-02-02 07:22] LABS: SLIDE REVIEW VERIFIED
--- NOTE | 2022-02-02 07:36 | P.PNGS_ITS ---
Subjective Subjective Date of Service: 02/02/22 Patient reports: feels better, pain is less and bowel movement Interval history: The patient reports interval improvement since yesterday and that she is back to her baseline left lower quadrant discomfort. Today, she reports that she has had left lower quadrant discomfort for years and now assumes that it is related to diverticulosis and diverticulitis. She has had 2 bowel movements, is passing gas he reports that she is interested in trying clear liquids. She otherwise denies headache, chest pain, difficulty breathing shortness of breath or other complaints. Physical Exam Vital Signs: Vital Signs: Last Vital Signs Temp 97.5 F 02/02/22 04:00 Pulse 68 02/02/22 04:00 Resp 18 02/02/22 04:00 BP 138/72 02/02/22 04:00 Pulse Ox 97 02/02/22 04:00 O2 Del Method 02/02/22 04:00 O2 Flow Rate 2 01/31/22 04:00 BMI result Body Mass Index 30.2 On exam she is in good spirits NC/AT, PERRLA, EOMI Abdomen is obese and soft with mild left lower quadrant discomfort with no rebound, rigidity or guarding and no peritoneal irritation to percussion is present Objective Data Active Medications Docusate Sodium (Docusate Sodium 100 Mg Capsule) 200 mg PO BID [facility] Last Admin: 02/01/22 22:10 Dose: 200 mg Documented By: FRANDY Heparin Sodium (Porcine) (Heparin Sodium,Porcine 5,000 Unit/Ml Vial) 5,000 unit SUBCUT Q12H [facility] Last Admin: 02/01/22 22:10 Dose: 5,000 unit Documented By: FRANDY Hydrochlorothiazide (Hydrochlorothiazide 25 Mg Tablet) 25 mg PO DAILY [facility]; Protocol Last Admin: 02/01/22 09:08 Dose: 25 mg Documented By: RICCARDO Piperacillin Sod/Tazobactam (Sod 3.375 gm/ Sodium Chloride) 50 mls @ 100 mls/hr IV Q6H [facility] Last Infusion: 02/02/22 06:12 Dose: 0 mls/hr Documented By: FRANDY Lactated Ringer's (Lr) 1,000 mls @ 80 mls/hr IVCONT .[id number] [facility] Stop: 02/04/22 23:59 Last Admin: 02/02/22 05:17 Dose: 100 mls/hr Documented By: FRANDY Promethazine HCl 6.25 mg/ (Sodium Chloride) 50.25 mls @ 201 mls/hr IV Q4H PRN PRN Reason: Nausea and Vomiting Ketorolac Tromethamine (Ketorolac Tromethamine 15 Mg/Ml Vial) 15 mg IVPUSH Q6H PRN PRN Reason: Pain, Moderate (Pain Scale 4-6 Morphine Sulfate (Morphine Sulfate 2 Mg/Ml Cartridge) 2 mg IVPUSH Q2H PRN; Protocol PRN Reason: Pain, Moderate (Pain Scale 4-6 Omeprazole (Omeprazole 20 Mg Capsule.Dr) 20 mg PO DAILY@0630 [facility] Last Admin: 02/02/22 05:17 Dose: 20 mg Documented By: FRANDY Ondansetron HCl (Ondansetron Hcl 4 Mg/2 Ml Vial) 8 mg IVPUSH Q8H PRN PRN Reason: Nausea and Vomiting Pharmacy Consult (Consult Rx Perform Med Rec) 1 each MISCELLANE ONCE PRN PRN Reason: Consult order Sodium Chloride (0.9 % Sodium Chloride Flush 3 Ml Syringe) 3 ml IVFLUSH QSHIFT [facility] Last Admin: 02/02/22 00:59 Dose: Not Given Documented By: FRANDY Non-Admin Reason: IV Running Labs CBC & Chem 7: 02/02/22 06:00 02/02/22 06:00 Labs: Laboratory Results - last 24 hr 02/02/22 02/02/22 06:00 06:00 MCV 84.4 MCH 27.5 MCHC 32.6 RDW 12.4 Plt Count 216 D MPV 10.2 Immature Gran % (Auto) 0.4 Neut % (Auto) 66.6 Lymph % (Auto) 24.3 Sampson % (Auto) 6.2 Eos % (Auto) 1.9 Baso % (Auto) 0.6 Lymph # (Auto) 1.7 Sampson # (Auto) 0.4 Eos # (Auto) 0.1 Baso # (Auto) 0.0 Abs Immat Gran (auto) 0.03 Absolute Neuts (auto) 4.6 Absolute Nucleated RBC 0.000 Nucleated RBC % (auto) 0.0 Smear Tech's Comments VERIFIED Anion Gap 16 Estim Creat Clear Calc 82.6 Estimated GFR > 60 Random Glucose 73 Calcium 8.7 D Microbiology Microbiology Results: Microbiology 01/30/22 22:14 Blood Culture - Preliminary Blood - Venous No growth after 48 hours. 01/30/22 22:14 Blood Culture - Preliminary Blood - Venous No growth after 48 hours. Procedures Date of Service Date of Service: 02/02/22 Progress Note: A&P Assessment and plan (1) Diverticulitis of intestine with abscess: Status: Acute Plan I have ordered clear liquid tray to start today. Will reassess later. Dietitian consult and Education regarding low residue diet for 1-2 weeks followed by a high-fiber diet The importance of follow-up with GI for a colonoscopy this year to exclude malignancy was discussed with the patient and apparently understood. Questions answered. Time Spent With Patient Time: Total time spent is greater than 50% in coordination of care (as documented) at patient's floor/unit and/or counseling patient: Quality Stroke Does the patient have a stroke diagnosis?: No VTE Prior VTE?: No VTE Risk Level:: Medical - moderate - high VTE Device Contraindication: N/A - Device Ordered VTE Drug Contraindication: N/A - Med Ordered
[2022-02-02 07:56] VITALS: BP 152/92; PULSE 79; RESP 18; TEMP 36.8; O2SAT 95
[2022-02-02] MEDS: hydroCHLOROthiazide 25 MG TABLET PO (10:20)
[2022-02-02] MEDS: Docusate Sodium 100 MG CAPSULE 200 MG PO ×2 (10:20→21:22)
[2022-02-02] MEDS: 0.9 % Sodium Chloride Flush 3 ML SYRINGE IVFLUSH ×2 (10:20→21:29)
[2022-02-02] MEDS: Heparin Sodium,Porcine 5,000 UNIT/ML VIAL 5000 UNIT SUBCUT ×2 (10:20→21:22)
--- NOTE | 2022-02-02 10:25 | MHC.CLN ---
RE: CONSULT CONSULT COMPLETED PLEASE SEE TEACHING RECORD FOR FURTHER DETAILS MD NOTIFIED VIA TIGER TEXT
[2022-02-02 11:49] VITALS: BP 143/94; PULSE 82; RESP 18; TEMP 36.8; O2SAT 94
[2022-02-02 16:00] VITALS: BP 151/79; PULSE 95; RESP 18; TEMP 36.7; O2SAT 95
[2022-02-02 19:06] VITALS: BP 164/92; PULSE 90; RESP 18; TEMP 36.2; O2SAT 94
[2022-02-03] VITALS: BP 154/88; PULSE 76; RESP 18; TEMP 36.2; O2SAT 96
[2022-02-03 04:00] VITALS: BP 145/88; PULSE 86; RESP 18; TEMP 36.2; O2SAT 95
[2022-02-03] MEDS: Omeprazole 20 MG CAPSULE.DR PO (05:00)
[2022-02-03] MEDS: Piperacillin Sodium/Tazobactam 3.375 GM in 0.9 % Sodium Chloride 50 ML IV ×2 (05:01→12:27)
[2022-02-03 07:48] VITALS: BP 166/94; PULSE 92; RESP 17; TEMP 36.7; O2SAT 94
[2022-02-03] MEDS: Docusate Sodium 100 MG CAPSULE 200 MG PO (09:55)
[2022-02-03] MEDS: Heparin Sodium,Porcine 5,000 UNIT/ML VIAL 5000 UNIT SUBCUT (09:55)
[2022-02-03] MEDS: 0.9 % Sodium Chloride Flush 3 ML SYRINGE IVFLUSH (09:55)
[2022-02-03] MEDS: hydroCHLOROthiazide 25 MG TABLET PO (09:55)
[2022-02-03 11:27] VITALS: BP 137/83; PULSE 86; RESP 18; TEMP 36.4; O2SAT 97
--- NOTE | 2022-02-03 13:29 | PM.PNGS ---
Subjective Subjective Date of Service: 02/03/22 Patient reports: no new complaints, feels better and tolerating liquids well Interval history: The patient was seen at approximately 07:00 this morning. She reports she has resolution of her abdominal pain and is back to her baseline. She is passing gas and moving her bowels and tolerated clear liquids. She seemed understand the instructions regarding low residue and then high-fiber diets. We discussed the plan for her to stay on low residue for a week and then transition to a high-fiber diet. Patient had her questions answered and was interested in discharge assuming she tolerated a low residue diet. She otherwise denies interval changes she has pain in her chest, difficulty breathing or neurologic symptoms. Physical Exam Vital Signs: Vital Signs: Last Vital Signs Temp 97.5 F 02/03/22 11:27 Pulse 86 02/03/22 11:27 Resp 18 02/03/22 11:27 BP 137/83 02/03/22 11:27 Pulse Ox 97 02/03/22 11:27 O2 Del Method 02/03/22 11:27 O2 Flow Rate 2 01/31/22 04:00 BMI result Body Mass Index 30.2 Patient's nontoxic NC/AT, PERRLA, EOMI Sclerae anicteric Abdomen is much less tender than on initial exam. There is still vague left lower quadrant discomfort but certainly no rebound, rigidity or guarding. Objective Data Active Medications Docusate Sodium (Docusate Sodium 100 Mg Capsule) 200 mg PO BID [facility] Last Admin: 02/03/22 09:55 Dose: 200 mg Documented By: SOPHIE Heparin Sodium (Porcine) (Heparin Sodium,Porcine 5,000 Unit/Ml Vial) 5,000 unit SUBCUT Q12H [facility] Last Admin: 02/03/22 09:55 Dose: 5,000 unit Documented By: SOPHIE Hydrochlorothiazide (Hydrochlorothiazide 25 Mg Tablet) 25 mg PO DAILY [facility]; Protocol Last Admin: 02/03/22 09:55 Dose: 25 mg Documented By: SOPHIE Piperacillin Sod/Tazobactam (Sod 3.375 gm/ Sodium Chloride) 50 mls @ 100 mls/hr IV Q6H [facility] Last Infusion: 02/03/22 13:03 Dose: 0 mls/hr Documented By: SOPHIE Lactated Ringer's (Lr) 1,000 mls @ 80 mls/hr IVCONT .[id number] [facility] Stop: 02/04/22 23:59 Last Infusion: 02/03/22 10:15 Dose: 0 mls/hr Documented By: SOPHIE Promethazine HCl 6.25 mg/ (Sodium Chloride) 50.25 mls @ 201 mls/hr IV Q4H PRN PRN Reason: Nausea and Vomiting Ketorolac Tromethamine (Ketorolac Tromethamine 15 Mg/Ml Vial) 15 mg IVPUSH Q6H PRN PRN Reason: Pain, Moderate (Pain Scale 4-6 Morphine Sulfate (Morphine Sulfate 2 Mg/Ml Cartridge) 2 mg IVPUSH Q2H PRN; Protocol PRN Reason: Pain, Moderate (Pain Scale 4-6 Omeprazole (Omeprazole 20 Mg Capsule.Dr) 20 mg PO DAILY@0630 [facility] Last Admin: 02/03/22 05:00 Dose: 20 mg Documented By: MORRINAscencion Ondansetron HCl (Ondansetron Hcl 4 Mg/2 Ml Vial) 8 mg IVPUSH Q8H PRN PRN Reason: Nausea and Vomiting Pharmacy Consult (Consult Rx Perform Med Rec) 1 each MISCELLANE ONCE PRN PRN Reason: Consult order Sodium Chloride (0.9 % Sodium Chloride Flush 3 Ml Syringe) 3 ml IVFLUSH QSHIFT [facility] Last Admin: 02/03/22 09:55 Dose: 3 ml Documented By: SOPHIE Labs CBC & Chem 7: 02/02/22 06:00 02/02/22 06:00 Procedures Date of Service Date of Service: 02/03/22 Progress Note: A&P Assessment and plan (1) Diverticulitis of intestine with abscess: Status: Acute Plan The patient has made interval progress. I have advanced her to a low residue diet. If she tolerates both breakfast and lunch, she can be discharge. Prescription for Augmentin, 875 mg was sent to her pharmacy for 1 week supply. Use of Colace was reviewed. See discharge. Time Spent With Patient Time: Total time spent is greater than 50% in coordination of care (as documented) at patient's floor/unit and/or counseling patient: Quality Stroke Does the patient have a stroke diagnosis?: No VTE Prior VTE?: No VTE Risk Level:: Medical - moderate - high VTE Device Contraindication: N/A - Device Ordered VTE Drug Contraindication: N/A - Med Ordered
--- NOTE | 2022-02-03 13:32 | PM.DS ---
DS: Providers Provider Date of Service: 02/03/22 Date of admission: 01/30/22 21:35 Primary care physician: Isaac Field MD Consults: 01/30/22 21:29 Consult to General Surgery Stat Consulting Provider: Luis Chen Reason for consultation: complicated diverticulitis Has provider been notified: Yes DS: Diagnosis Discharge Diagnosis (1) Diverticulitis of intestine with abscess: Status: Acute DS: Summary Hospital Course Hospital Course: The patient is a 56-year-old woman who is admitted to the hospital for about of diverticulitis earlier this year. Several days prior to admission, she had onset of left lower quadrant abdominal pain and was noted to have a leukocytosis and 1 cm intramural abscess, so she was admitted to the surgical service. Patient was put on bowel rest and IV fluid; Zosyn was instituted. By the day of discharge, the patient had significant improvement and resolution of her presenting pain, tolerated clear liquids and a low residue diet and was discharged in improved condition. The importance of contacting her PCP and Gastroenterology with the plan to have a colonoscopy to confirm the diagnosis this year was reviewed and apparently understood. Time Spent with Patient Time attestation: Total time spent providing and/or coordinating discharge services: Discharge coordination time: Greater than 30 minutes Quality: Safe Use of Opioids Does Pt have an Active Cancer Diagnosis on the Problem List?: No Quality: Stroke Does the patient have a stroke diagnosis?: No Physical Exam Vital Signs: Vital Signs: Last Vital Signs Temp 97.5 F 02/03/22 11:27 Pulse 86 02/03/22 11:27 Resp 18 02/03/22 11:27 BP 137/83 02/03/22 11:27 Pulse Ox 97 02/03/22 11:27 O2 Del Method 02/03/22 11:27 O2 Flow Rate 2 01/31/22 04:00 BMI result Body Mass Index 30.2 DS: Data Data Completed and Pending Labs on day of discharge: Preliminary micro results at discharge 01/30/22 22:14 Blood Culture - Preliminary Blood - Venous No growth after 48 hours. 01/30/22 22:14 Blood Culture - Preliminary Blood - Venous No growth after 48 hours. Discharge Plan Discharge Patient Disposition: Home, Self-Care Discharge Diagnosis: diverticulitis Referrals: Isaac Field MD [Primary Care Provider] - 1 Week Luis Chen MD [Physician] - 2 Weeks Discharge Medications: New amoxicillin-pot clavulanate 875-125 mg tablet 1 tab PO Q12H Qty: 14 0RF Continued clotrimazole 10 mg rama 1 tab PO TID atorvastatin 10 mg tablet 1 tab PO DAILY simvastatin 10 mg tablet 1 tab PO BEDTIME pantoprazole 40 mg tablet,delayed release (DR/EC) 1 tab PO QAM hydrochlorothiazide 25 mg tablet 1 tab PO DAILY Discharge Orders: Discharge Order (Routine); Ordered 02/03/22 Ordered By: Luis Chen Diet: low residue Activity on Discharge: As tolerated Stand Alone Forms: Patient Portal Discharge page Activity Restrictions/Additional Instructions: You were admitted to the hospital and treated for diverticulitis of your colon. As explained, diverticular weak areas with thinner goodrich they can get plugged with stool and infected or can bleed. Resting her intestines allows healing and IV antibiotics will be switched to oral antibiotics to resolve the infection. If your pain returns and becomes worse, please contact Dr. Chen [phone] or report to the nearest emergency department. For the 1st week at home, take the antibiotics you were prescribed and be sure to take docusate, 100 mg, 2 tablets in the morning and 2 tablets later at night. Follow instructions for a low residue diet which include some sort of protein/meat/poultry or fish and a starch. Very well cooked green vegetables are acceptable but should be minimized at this point. After 1-2 weeks, he will need to go on to a high fiber diet and typically stop taking the stool softener. However, a few suffer from constipation, this medicine can be taken with little side effects if needed. The most important part to remember is that colon cancer can mimic diverticulitis and so follow-up with your regular doctor and a magician/illusionist for a colonoscopy is in order. Please contact your regular doctor/PCP at discharge. If you prefer to follow up with your primary care provider, please be sure that there comfortable dealing with diverticular disease. Alternately, call Dr. Chen over this office for follow-up in 1-2 weeks. Resume taking your regular medications. If you feel comfortable driving and working, you can return to work. Care Plan Goals: Resolution of diverticulitis Health Concerns: You need a colonoscopy this year to confirm the diagnosis. Please call your PCP for an appointment with Gastroenterology Plan of Treatment: Low residue diet for 1 week, high-fiber diet after that. Continue oral antibiotics for 1 week Assessment: Sigmoid diverticulitis
--- NOTE | 2022-02-03 13:44 | MHC.CM.PN ---
HOME - SELF CARE RN AWARE OF PLAN
[2022-02-03 15:25] VITALS: BP 129/80; PULSE 92; RESP 18; TEMP 36.4; O2SAT 96
== END 2022-02-03 17:37 | disposition home or self-care (01) | DRG 244 ==
LOC: HO.ED 21:36 → HO.EDOVER 22:07 → HO.S3 01-31 15:32
PROVIDERS: Physician Assistant; Admitting Provider Surgery; Emergency Provider Internal Medicine; PCP Internal Medicine; Visit Provider Surgery
DX: K57.20 Diverticulitis of large intestine with perforation and abscess without bleeding (principal); K76.0 Fatty (change of) liver, not elsewhere classified; I10 Essential (primary) hypertension; K21.9 Gastro-esophageal reflux disease without esophagitis; E78.00 Pure hypercholesterolemia, unspecified; E66.9 Obesity, unspecified; D72.829 Elevated white blood cell count, unspecified; Z20.822 Contact with and (suspected) exposure to COVID-19; Z87.442 Personal history of urinary calculi; Z68.30 Body mass index [BMI] 30.0-30.9, adult; Z98.51 Tubal ligation status; Z79.899 Other long term (current) drug therapy
CPT/HCPCS: 36415; 74177; 80048; 81003; 81025; 83605; 85025; 87040; 87635; 96374; 96375; 99285; J1170; J1885; J2270; J2405; J2543; Q9967

== ENCOUNTER 2022-04-13 09:53 | Outpatient (REF) | payer BC, SELFPAY ==
--- NOTE | ~2022-04-13 | CT_ITS ---
EXAMINATION: CT ABDOMEN AND PELVIS WITH CONTRAST CLINICAL INFORMATION: Abdominal pain COMPARISON: Previous CT of the abdomen and pelvis most recent 01/30/2022 TECHNIQUE: Multidetector volumetric images were obtained from the superior aspect of the liver through the pubic symphysis following administration 85 mL of Omnipaque 350 intravenous contrast. Sagittal and coronal reformatted images were obtained on the technologist's workstation. Oral contrast: Yes This CT examination was performed using dose optimization techniques as appropriate, variously including the following: *Automated exposure control *Adjustment of mA and/or kV according to patient size (this includes techniques or standardized protocols for targeted exams where dose is matched to indication/reason for exam; i.e. extremities or head) *Use of iterative reconstruction technique DLP: 370 mGy-cm FINDINGS: LUNG BASES: The visualized lung bases are unremarkable. LIVER, GALLBLADDER, AND BILIARY TREE: The liver is low in attenuation suggestive of fatty infiltration. Liver size and contour is normal.. No focal hepatic lesion or biliary ductal dilatation is present. The gallbladder is unremarkable with no evidence of radiopaque gallstones, gallbladder wall thickening, or obvious pericholecystic inflammatory changes. PANCREAS: Unremarkable. SPLEEN: Unremarkable. ADRENAL GLANDS: Unremarkable. KIDNEYS AND URETERS: The kidneys are normal in size, shape, and attenuation. No hydronephrosis, hydroureter, or calculi seen. No perinephric stranding. BLADDER: Unremarkable. GASTROINTESTINAL TRACT: Diverticulosis of the colon. No evidence of diverticulitis. Small and large bowel is otherwise normal. Appendix not seen. No inflammatory changes in the right lower quadrant. Question surgical/biopsy clip in the stomach. This is unchanged. ABDOMINAL WALL: No significant hernia. LYMPH NODES: Normal. VASCULAR: Unremarkable. PELVIC VISCERA: The uterus appears to have been removed. No pelvic mass. OSSEOUS STRUCTURES: Unremarkable. CT/CT abdomen pelvis w IV con IMPRESSION: No acute findings. Fatty liver. Diverticulosis of the colon. No evidence of diverticulitis. Fleischner guidelines were followed.
[2022-04-13] MEDS: iohexoL 350 MG/ML 100 ML INFUS..BTL IV (10:39)
== END 2022-04-13 09:54 | disposition home or self-care (01) ==
LOC: HO.CT 09:53
PROVIDERS: PCP Internal Medicine; Visit Provider Nurse Practitioner Family
DX: K57.92 Diverticulitis of intestine, part unspecified, without perforation or abscess without bleeding (principal); R10.9 Unspecified abdominal pain
CPT/HCPCS: 74177; Q9967

== ENCOUNTER → 2022-06-07 14:56 | Outpatient (BNVA) | payer BC, SELFPAY | PROVIDERS: PCP Internal Medicine; Visit Provider Nurse Practitioner Family | DX: K57.90 Diverticulosis of intestine, part unspecified, without perforation or abscess without bleeding (principal) ==

== ENCOUNTER 2022-06-16 14:47 | Outpatient (REF) | payer BC, SELFPAY ==
[2022-06-16 15:07] LABS: MANUAL DIFF FLAG NO
[2022-06-16 15:18] LABS: Basophils Absolute Auto 0.1 X10*3/uL (0.0-0.2); Basophils Percent Auto 0.5 % (0-2); Eosinophils Absolute Auto 0.3 X10*3/uL (0.0-0.4); Eosinophils Percent Auto 2.6 % (0-4); Hematocrit 37.8 % (37.0-47.0); Hemoglobin 12.3 g/dl (12.0-16.0); Imm Gran Abs Auto 0.02 X10*3/uL (0.00-0.03); Imm Gran Pct Auto 0.2 % (0.0-0.4); Immature Retic Fraction 10.6 % (3.0-15.9); Lymphocytes Absolute Auto 3.3 X10*3/uL (1.2-4.9); Lymphocytes Percent Auto 34.2 % (20-40); Mean Corpuscular HGB Conc 32.5 g/dl (31.0-35.0); Mean Corpuscular Volume 85.9 fL (80.0-98.0); Mean Platelet Volume 8.8 fL (9.4-12.3); Monocytes Absolute Auto 0.7 X10*3/uL (0.1-1.2); Neutrophils Absolute Auto 5.3 x10*3/uL (2.0-8.3); Neutrophils Percent Auto 55.5 % (45-73); Platelet Count 335 X10*3/uL (160-400); Red Cell Distribution Width 13.2 % (11.0-16.0); Retic HGB Equivalent 32.4 pg (30.0-35.0); Reticulocyte Percent 1.4 % (0.5-1.8); Reticulocytes Absolute 0.063 X10*6/uL (0.026-0.095); White Blood Count 9.5 X10*3/uL (4.8-10.8)
[2022-06-16 15:26] LABS: Estimated Average Glucose 140 mg/dL; Hemoglobin A1c % 6.5 %
[2022-06-16 15:50] LABS: Alanine Aminotransferase 31 U/L (0-31); Albumin Level 4.2 g/dL (3.5-5.0); Alkaline Phosphatase 111 U/L (39-117); Anion Gap 13 (12-20); Aspartate Amino Transferase 15 U/L (5-31); Bilirubin Total 0.4 mg/dL (0.0-1.0); Blood Urea Nitrogen 12 mg/dL (9-16); Calcium 10.4 mg/dL (8.4-10.2); Carbon Dioxide 32 mmol/L (22-29); Chloride 99 mmol/L (96-108); Cholesterol 191 mg/dL; Estimated Glomerular Filt Rate > 60; Glucose Random 112 mg/dL (60-115); HDL Cholesterol 41 mg/dL; Iron 51 mcg/dL (30-160); LDL Cholesterol Calculated 105 mg/dl; Percent Iron Saturation 18 % (15-50); Potassium 3.3 mmol/L (3.3-5.1); Sodium 141 mmol/L (135-145); Total Iron Binding Capacity 291 mcg/dL (228-428); Total Protein 7.4 g/dL (6.5-8.0); Triglycerides 229 mg/dL; Unsaturated Iron Binding 240 ug/dL
[2022-06-16 16:07] LABS: Ferritin 42 ng/mL (10-250); Free T4 (Free Thyroxine) 1.08 ng/dL (0.71-1.85); Thyroid Stimulating Hormone 2.26 uIU/mL (0.32-4.0); Vitamin D 25-OH Total 33.3 ng/mL (>30)
[2022-06-16 16:20] LABS: Folate 13.5 ng/mL (> or = 4.0); Vitamin B12 985 pg/mL (200-900)
== END 2022-06-16 14:48 | disposition home or self-care (01) ==
LOC: HO.LAB 14:47
PROVIDERS: PCP Internal Medicine; Visit Provider Internal Medicine
DX: R73.02 Impaired glucose tolerance (oral) (principal); E78.00 Pure hypercholesterolemia, unspecified
CPT/HCPCS: 36415; 80053; 80061; 82306; 82607; 82728; 82746; 83036; 83540; 84439; 84443; 85025; 85045

== ENCOUNTER 2022-06-22 08:21 | Inpatient (IN) | payer BC, SELFPAY ==
--- NOTE | ~2022-06-22 | CT_ITS ---
EXAMINATION: CT ABDOMEN AND PELVIS WITH CONTRAST CLINICAL INFORMATION: Left lower quadrant pain and tenderness, history of diverticulitis. COMPARISON: CT abdomen/pelvis 04/13/2022. TECHNIQUE: Multidetector volumetric images were obtained from the superior aspect of the liver through the pubic symphysis following administration 85 mL of Omnipaque 350 intravenous contrast. Sagittal and coronal reformatted images were obtained on the technologist's workstation. Oral contrast: No This CT examination was performed using dose optimization techniques as appropriate, variously including the following: *Automated exposure control *Adjustment of mA and/or kV according to patient size (this includes techniques or standardized protocols for targeted exams where dose is matched to indication/reason for exam; i.e. extremities or head) *Use of iterative reconstruction technique DLP: 519 mGy-cm FINDINGS: LUNG BASES: Bibasilar subsegmental atelectasis/scarring. No focal consolidation or pleural effusion. LIVER, GALLBLADDER, AND BILIARY TREE: The liver is normal in size, shape, and attenuation. No focal hepatic lesion or biliary ductal dilatation is present. Fundal adenomyomatosis of the gallbladder. No hyperdense calculi or findings to suspect acute cholecystitis. No biliary ductal dilatation. PANCREAS: Unremarkable. SPLEEN: Unremarkable. ADRENAL GLANDS: Unremarkable. KIDNEYS AND URETERS: The kidneys are normal in size, shape, and attenuation. No hydronephrosis, hydroureter, or calculi seen. No perinephric stranding. BLADDER: Decompressed with diffuse wall thickening and perivesical fat stranding. GASTROINTESTINAL TRACT: Severe wall thickening of the sigmoid colon with pericolonic fat stranding and free fluid within a background of diverticuli. In the stomach and the small bowel are nondilated. No findings to suspect acute appendicitis. No evidence of bowel obstruction. ABDOMINAL WALL: No significant hernia is appreciated. LYMPH NODES: Prominent retroperitoneal and pelvic lymph nodes, for instance measuring 0.8 cm short axis in the left external iliac region (2:76) and 0.7 cm short axis in the left retroperitoneum (2:49). VASCULAR: Scattered atherosclerotic disease. Abdominal aorta is of normal diameter. PELVIC VISCERA: Hysterectomy. No pelvic mass. OSSEOUS STRUCTURES: No acute or aggressive appearing osseous abnormalities. CT/CT abdomen pelvis w IV con IMPRESSION: 1. Severe wall thickening of the sigmoid colon with pericolonic fat stranding and free fluid within a background of diverticulosis, most suggestive of acute diverticulitis. No free air or drainable collection. 2. Diffuse urinary bladder wall thickening with perivesical fat stranding, likely reactive. There is no air in the lumen of the urinary bladder. Recommend clinical correlation. 3. Prominent retroperitoneal and pelvic lymph nodes are likely reactive in nature.
[2022-06-22 08:26] VITALS: BP 136/85; PULSE 110; RESP 14; TEMP 36.3; O2SAT 98; BMI 32.0
[2022-06-22 08:39] LABS: MANUAL DIFF FLAG NO
[2022-06-22 08:41] LABS: Basophils Percent Auto 0.2 % (0-2); Eosinophils Percent Auto 0.1 % (0-4); Hematocrit 38.6 % (37.0-47.0); Hemoglobin 12.8 g/dl (12.0-16.0); Imm Gran Abs Auto 0.09 X10*3/uL (0.00-0.03); Imm Gran Pct Auto 0.5 % (0.0-0.4); Lymphocytes Absolute Auto 2.1 X10*3/uL (1.2-4.9); Lymphocytes Percent Auto 12.1 % (20-40); Mean Corpuscular HGB Conc 33.2 g/dl (31.0-35.0); Mean Corpuscular Hemoglobin 28.2 pg (27.0-33.0); Mean Platelet Volume 8.3 fL (9.4-12.3); Monocytes Absolute Auto 1.2 X10*3/uL (0.1-1.2); Monocytes Percent Auto 6.9 % (2-11); Neutrophils Absolute Auto 13.9 x10*3/uL (2.0-8.3); Neutrophils Percent Auto 80.2 % (45-73); Platelet Count 345 X10*3/uL (160-400); Red Blood Count 4.54 X10*6/uL (4.20-5.50); Red Cell Distribution Width 12.9 % (11.0-16.0); White Blood Count 17.4 X10*3/uL (4.8-10.8)
[2022-06-22 08:55] LABS: Appearance Urine Cloudy; Color Urine Yellow; Glucose Urine UA Negative (Negative); Leukocyte Esterase Urine Trace (Negative); Nitrite Urine Negative (Negative); UMIC TRIGGER UACC YES; Urine Blood Small (1+) (Negative); Urine Ketones Negative (Negative); Urine Protein Trace mg/dL (Neg-Trace)
[2022-06-22 08:56] VITALS: BP 144/92; PULSE 106; RESP 16; TEMP 37.7; O2SAT 97
[2022-06-22 08:56] LABS: Anion Gap 13 (12-20); Blood Urea Nitrogen 9 mg/dL (9-16); Calcium 9.9 mg/dL (8.4-10.2); Carbon Dioxide 31 mmol/L (22-29); Chloride 98 mmol/L (96-108); Creatinine Clr Calc Pharmacy 75.7; Estimated Glomerular Filt Rate > 60; Glucose Random 149 mg/dL (60-115); Potassium 3.9 mmol/L (3.3-5.1); Sodium 138 mmol/L (135-145)
[2022-06-22 09:01] LABS: Bacteria Urine 1+ (None Seen); Hyaline Casts Urine 0-2 /LPF (0-2); RBC Urine 0-2 /HPF (0-2); WBC Urine 0-5 /HPF (0-5)
--- NOTE | 2022-06-22 10:01 | ED_ITS ---
HPI - Abdominal Pain General Chief Complaint: Abdominal Pain Stated Complaint: LLQ pain Time Seen by Provider: 06/22/22 09:00 Source: patient Mode of arrival: ambulatory Limitations: no limitations History of Present Illness HPI narrative: patient is a 57-year-old female who presents emergency department for evalu ation of abdominal pain. She reports left lower quadrant abdominal pain over the past couple of days, progressively worsening. Unable to identify exacerbating or alleviating factors. Endorsing chills, but denies any fever. Denies chest pain, shortness of breath, nausea vomiting, diarrhea constipation, bloody or dark stools, Dysuria, urinary frequency / urgency/ hesitancy, hematuria, pelvic pain, abnormal vaginal discharge or bleeding. She reports a history of diverticulitis, reports that this pain feels similar to past episode, which she believes was in January. Related Data Home Medications Medication Instructions Recorded Confirmed dicyclomine 10 mg capsule 1 cap PO BID PRN abdominal pain 06/22/22 06/22/22 methylcellulose (laxative) 500 mg 1 tab PO DAILY 06/22/22 06/22/22 tablet (Fiber Therapy (methylcellulose)) pantoprazole 40 mg tablet,delayed 40 mg PO DAILY@0630 06/22/22 06/22/22 release simvastatin 10 mg tablet 1 tab PO BEDTIME 06/22/22 06/22/22 Previous Rx's Medication Instructions Recorded lisinopril 5 mg tablet 5 mg PO DAILY #90 tabs 05/02/22 linaclotide 145 mcg capsule 145 mcg PO DAILY #90 caps 06/07/22 (Linzess) hydrochlorothiazide 12.5 mg tablet 12.5 mg PO DAILY 90 days #90 tabs 06/17/22 nystatin 100,000 unit/mL oral 5 ml PO TID 7 days #105 mL 06/17/22 suspension Allergies Allergy/AdvReac Type Severity Reaction Status Date / Time No Known Allergies [NKA] Allergy Mild NOT Verified 06/17/22 13:22 APPLICABLE Review of Systems Review of Systems Constitutional : No Weight loss, No Fever, No Chills ENT/Mouth :? No sore throat, No Rhinorrhea Eyes: No Swelling, No Redness Cardiovascular : No Chest Pain, No SOB, No Edema Respiratory : No Cough, No Sputum, No Wheezing Gastrointestinal : no Nausea, no Vomiting, No Diarrhea, positive abdominal pain, No Hematochezia, No Melena Genitourinary : No Dysuria, No Urinary Frequency, No Hematuria, No Urgency? Musculoskeletal : No joint pain, No Myalgias, No Joint Swelling Skin : No Skin Lesions, No rash Neuro : No Weakness, No Numbness, No Dizziness, No Headache Psych : No Anxiety/Panic, No Depression Heme/Lymph: No Bruising, No Lymphadenopathy Endocrine : No Polyuria, No Polydipsia Yes all other systems are reviewed and are negative PMFSH Past Medical History Attestation statement: The following information was validated with the patient. Source: old records reviewed Medical History Acute allergic reaction Anemia Diverticulitis Fatty liver GERD (gastroesophageal reflux disease) History of renal calculi Hypercholesterolemia Hypertension Irritable bowel syndrome Obesity (BMI 30-39.9) Surgical History H/O tubal ligation History of abdominal hysterectomy History of esophagogastroduodenoscopy (EGD) History of lithotripsy Hx of appendectomy Hx of arthroscopy of left knee Hx of arthroscopy of right knee Hx of colonoscopy Family History Family History Father Brain tumor Mother Hypertension CVD (cardiovascular disease) Social History Social History Household Members: Spouse Housing: House Do you presently have visiting nurse or other home services: No Alcohol intake: never Patient Tobacco Use Status: Never used Tobacco e-Cigarette/Vaping Use: Never Used Second Hand Smoke Exposure: No Advance Directives: No Advance Directives Information Provided: No service: No Current occupational status: employed Cognitive needs: No Hearing needs: No Vision needs: Yes Physical Exam ED Vital Signs: Vital Signs - 24 hr 06/22/22 08:26 06/22/22 08:56 06/22/22 10:28 Temperature 97.4 F 99.8 F 98.7 F Pulse Rate 110 H 106 H 105 H Respiratory Rate 14 16 16 Blood Pressure 136/85 144/92 H 138/88 Pulse Oximetry 98 97 98 Oxygen Delivery Method Room Air Room Air Room Air 06/22/22 13:21 Temperature 99.2 F Pulse Rate 102 H Respiratory Rate 18 Blood Pressure 124/77 Pulse Oximetry 93 Oxygen Delivery Method Room Air BMI result Body Mass Index 32.0 Appearance: Alert.?Oriented to person, place and time. No acute distress.?Normal affect. Eyes: Pupils equal, round and reactive to light.? ENT: Pharynx normal.?? Neck: Normal inspection.? Neck supple.?? CVS: Heart sounds normal. Normal heart rate and rhythm.? Pulses normal.?? Respiratory: No respiratory distress.? Lung sounds clear to auscultation bilaterally?? Abdomen: Soft with left lower quadrant tenderness upon palpation, no rebound tenderness at McBurney's point, negative obturator's sign, negative psoas sign.. Normoactive bowel sounds. Skin: Skin warm and dry.? Normal skin color.? Extremities: No lower extremity edema.? Neuro: Moves all extremities spontaneously. Sensation intact bilaterally. CN II- XII intact. No focal neuro deficits. Ambulates with normal steady gait. Course Reevaluation(s) Reevaluation #1: CBC reveals leukocytosis 17.4 with left shift. BMP is overall unremarkable. CT of the abdomen and pelvis revealing severe wall thickening of the sigmoid colon with pericolonic fat stranding and free fluid, acute diverticulitis. at this time she remains tachycardic, pain 8/10, no relief from initial dose of morphine. Will trial a 2nd dose Of morphine IV, Reglan IV for nausea, Flagyl IV and Levaquin IV ordered. Time: 13:10 Reevaluation #2: Pain persists at this time, reports 8/10, little to no relief with morphine, attempted p.o. trial, patient vomiting water soon after. Spoke with hospitalist regarding admission to medicine service, patient accepted for admission, Dr. Lopez For acute diverticulitis, patient agreeable plan of care. Time: 14:45 Medical Decision Making Medical Decision Making MDM Narrative: patient is a 57-year-old female with past medical history of anemia, diverticulitis, renal calculi, hypertension, irritable bowel syndrome, GERD, fatty liver presenting to emergency department for evaluation of abdominal pain as reported in HPI. At the time of examination she is overall well-appearing, she is mildly tachycardic, currently afebrile, no tachypnea or hypoxia. She does have notable left lower quadrant tenderness upon palpation, no rigidity or guarding at this time. Will obtain CBC, CMP, urinalysis, CT of the abdomen and pelvis. Patient to receive 1 L normal saline IBS, morphine 4 mg IV for pain, and Zofran IV prophylactically for nausea. Differential Diagnosis Differential Diagnoses: The differential diagnosis associated with the presentation includes ( diverticulitis, colitis, bowel obstruction, constipation, gastroenteritis, irritable bowel syndrome, appendicitis, urinary tract infection, pyelonephritis) Lab Data MDM Lab Attestation statement: I reviewed the patient's lab results. 06/22/22 08:33 06/22/22 08:33 Labs: Lab Results 06/22/22 06/22/22 06/22/22 Range/Units 08:33 08:33 08:48 WBC 17.4 H (4.8-10.8) X10*3/uL RBC 4.54 (4.20-5.50) X10*6/uL Hgb 12.8 (12.0-16.0) g/dl Hct 38.6 (37.0-47.0) % MCV 85.0 (80.0-98.0) fL MCH 28.2 (27.0-33.0) pg MCHC 33.2 (31.0-35.0) g/dl RDW 12.9 (11.0-16.0) % Plt Count 345 (160-400) X10*3/uL MPV 8.3 L (9.4-12.3) fL Immature Gran % (Auto) 0.5 H (0.0-0.4) % Neut % (Auto) 80.2 H (45-73) % Lymph % (Auto) 12.1 L (20-40) % [place] % (Auto) 6.9 (2-11) % Eos % (Auto) 0.1 (0-4) % Baso % (Auto) 0.2 (0-2) % Lymph # (Auto) 2.1 (1.2-4.9) X10*3/uL [place] # (Auto) 1.2 (0.1-1.2) X10*3/uL Eos # (Auto) 0.0 (0.0-0.4) X10*3/uL Baso # (Auto) 0.0 (0.0-0.2) X10*3/uL Abs Immat Gran (auto) 0.09 H (0.00-0.03) X10*3/uL Absolute Neuts (auto) 13.9 H (2.0-8.3) x10*3/uL Absolute Nucleated RBC 0.000 (0.0-0.012) X10*3/uL Nucleated RBC % (auto) 0.0 (0.0-0.2) /100WBC Sodium 138 (135-145) mmol/L Potassium 3.9 (3.3-5.1) mmol/L Chloride 98 (96-108) mmol/L Carbon Dioxide 31 H (22-29) mmol/L Anion Gap 13 (12-20) BUN 9 (9-16) mg/dL Creatinine 0.80 (0.5-1.4) mg/dL Estim Creat Clear Calc 75.7 Estimated GFR > 60 Random Glucose 149 H (60-115) mg/dL Calcium 9.9 (8.4-10.2) mg/dL Total Bilirubin 0.9 (0.0-1.0) mg/dL Direct Bilirubin 0.3 (0.0-0.5) mg/dL AST 14 (5-31) U/L ALT 22 (0-31) U/L Alkaline Phosphatase 105 (39-117) U/L Total Protein 7.4 (6.5-8.0) g/dL Albumin 4.0 (3.5-5.0) g/dL Lipase 14 (8-78) U/L Urine Color Yellow Urine Appearance Cloudy Urine pH 6.0 (5.0-9.0) Ur Specific [place] 1.020 (1.005-1.025) Urine Protein Trace (Neg-Trace) mg/dL Urine Glucose (UA) Negative (Negative) mg/dL Urine Ketones Negative (Negative) mg/dL Urine Blood Small (1+) H (Negative) Urine Nitrite Negative (Negative) Ur Leukocyte Esterase Trace H (Negative) Urine RBC 0-2 (0-2) /HPF Urine WBC 0-5 (0-5) /HPF Ur Squamous Epith Cells 11-20 (0-2) /HPF Urine Bacteria 1+ (None Seen) Hyaline Casts 0-2 (0-2) /LPF Independent Interpretation I performed an independent interpretation of an: CT Scan Radiology Impression Discussion of test interpretation with radiology: I have reviewed the radiol ogist's reading. Radiologist Impression: CT/CT abdomen pelvis w IV con IMPRESSION: 1.? Severe wall thickening of the sigmoid colon with pericolonic fat stranding and free fluid within a background of diverticulosis, most suggestive of acute diverticulitis. No free air or drainable collection. 2.? Diffuse urinary bladder wall thickening with perivesical fat stranding, likely reactive. There is no air in the lumen of the urinary bladder. Recommend clinical correlation. 3.? Prominent retroperitoneal and pelvic lymph nodes are likely reactive in nature. Prescription Management I considered prescription management with: Pain Medication Medications Administered Generic Name Dose Route Start Last Admin Trade Name Freq PRN Reason Stop Dose Admin Enoxaparin Sodium 40 mg 06/22/22 16:00 06/22/22 16:47 Enoxaparin Sodium 40 Mg/0.4 Ml Syringe SUBCUT 40 mg Q24H ATLYA Administration Dextrose/Sodium Chloride 1,000 mls @ 125 mls/hr 06/22/22 15:45 06/22/22 16:46 D51/2ns IVCONT 125 mls/hr .Q8H TALYA Administration Morphine Sulfate 2 mg 06/22/22 15:43 06/22/22 16:46 Morphine Sulfate 4 Mg/Ml Cartridge IVPUSH 2 mg Q4H PRN Administration Pain, Severe (Pain Scale 7-10) Protocol Ondansetron HCl 4 mg 06/22/22 15:43 06/22/22 16:46 Ondansetron Hcl 4 Mg/2 Ml Vial IVPUSH 4 mg Q8H PRN Administration Nausea and Vomiting Sodium Chloride 3 ml 06/22/22 16:00 06/22/22 16:34 0.9 % Sodium Chloride Flush 3 Ml Syringe IVFLUSH Not Given QSHIFT TALYA Discontinued Medications Generic Name Dose Route Start Last Admin Trade Name Freq PRN Reason Stop Dose Admin Sodium Chloride 1,000 mls @ 999 mls/hr 06/22/22 10:30 06/22/22 11:53 Ns IV 06/22/22 11:30 Infused .Q1H1M TALYA Infusion Metronidazole 500 mg in 100 mls @ 100 mls/hr 06/22/22 13:10 06/22/22 16:47 Flagyl IV 06/22/22 14:09 Infused ONCE ONE Infusion Levofloxacin 750 mg in 150 mls @ 100 mls/hr 06/22/22 13:10 06/22/22 15:17 Levaquin IV 06/22/22 14:39 100 mls/hr ONCE ONE Administration Iohexol 85 ml 06/22/22 10:50 06/22/22 10:50 Iohexol 350 Mg/Ml 100 Ml Infus..Btl IV 06/22/22 10:51 85 ml ONCE ONE Administration Metoclopramide HCl 10 mg 06/22/22 13:21 06/22/22 14:03 Metoclopramide Hcl 10 Mg/2 Ml Vial IVPUSH 06/22/22 13:22 10 mg ONCE ONE Administration Morphine Sulfate 4 mg 06/22/22 10:19 06/22/22 10:52 Morphine Sulfate 4 Mg/Ml Cartridge IVPUSH 06/22/22 10:20 4 mg ONCE ONE Administration Protocol Morphine Sulfate 4 mg 06/22/22 13:20 06/22/22 14:03 Morphine Sulfate 4 Mg/Ml Cartridge IVPUSH 06/22/22 13:21 4 mg ONCE ONE Administration Protocol Ondansetron HCl 4 mg 06/22/22 10:19 06/22/22 10:52 Ondansetron Hcl 4 Mg/2 Ml Vial IVPUSH 06/22/22 10:20 4 mg ONCE ONE Administration Critical Care Time Critical Care Time Critical Care Time: Yes Total Critical Care Time: 35 Attestation: I personally attest to this critical care time spent taking care of the patient exclusive of all other billable procedures was approximately 35 minutes including initial evaluation of patient, ordering tests, x-ray interpretation, EKG interpretation, medical consultation, documentation, re-evaluation. Discharge Plan Discharge Clinical Impression: Diverticulitis Patient Disposition: Admitted As Inpatient
[2022-06-22 10:28] VITALS: BP 138/88; PULSE 105; RESP 16; TEMP 37.1; O2SAT 98
[2022-06-22] MEDS: iohexoL 350 MG/ML 100 ML INFUS..BTL 85 ML IV (10:50)
[2022-06-22] MEDS: ondansetron HCL 4 MG/2 ML VIAL IVPUSH ×3 (10:52→23:57)
[2022-06-22] MEDS: Morphine Sulfate 4 MG/ML CARTRIDGE IVPUSH ×2 (10:52→14:03)
[2022-06-22] MEDS: 0.9 % Sodium Chloride 1,000 ML 999 ML IV (10:52)
--- NOTE | 2022-06-22 11:03 | PC.NURSE ---
Alert and oriented, resp even and unlabored. IV established, medicated per the MAR.
[2022-06-22 13:21] VITALS: BP 124/77; PULSE 102; RESP 18; TEMP 37.3; O2SAT 93
[2022-06-22 13:41] LABS: Alanine Aminotransferase 22 U/L (0-31); Alkaline Phosphatase 105 U/L (39-117); Aspartate Amino Transferase 14 U/L (5-31); Bilirubin Direct 0.3 mg/dL (0.0-0.5); Bilirubin Total 0.9 mg/dL (0.0-1.0); Lipase 14 U/L (8-78); Total Protein 7.4 g/dL (6.5-8.0)
[2022-06-22] MEDS: Metoclopramide HCl 10 MG/2 ML VIAL IVPUSH (14:03)
[2022-06-22] MEDS: metroNIDAZOLE/NS 500 MG/100 ML PIGGYBACK 100 MG IV ×2 (14:04→22:47)
[2022-06-22] MEDS: levoFLOXacin/D5W 750 MG/150 ML PIGGYBACK 100 MG IV (15:17)
--- NOTE | 2022-06-22 15:19 | PM.IMHP ---
History of Present Illness Date of Service: 06/22/22 Chief Complaint: Abdominal pain 57 year old female with multiple issues as listed below and including diverticulitis, last episode in 01/2022 here with abdominal pain. She reports left lower quadrant abdominal pain onset several days ago, associated with fever, no diarrhea, no hematochezia. She reports similar episodes last january. CT scan of abdomen and pelvis shows the : Severe wall thickening of the sigmoid colon with pericolonic fat stranding and free fluid within a background of diverticulosis, most suggestive of acute diverticulitis. No free air or drainable collection. 2.? Diffuse urinary bladder wall thickening with perivesical fat stranding, likely reactive. There is no air in the lumen of the urinary bladder. Recommend clinical correlation. 3.? Prominent retroperitoneal and pelvic lymph nodes are likely reactive in nature. She's started of IV Levaquin and Flagyl for diverticulitis Review of Systems Review of Systems: Gen: no fever Resp: no sob, no cough CV: no chest, no [place], no leg edema GI: No n/v, signficant abdominal pain Neuro: No confusion [facility] Medical History Acute allergic reaction Anemia Diverticulitis Fatty liver GERD (gastroesophageal reflux disease) History of renal calculi Hypercholesterolemia Hypertension Irritable bowel syndrome Obesity (BMI 30-39.9) Family History Father Brain tumor Mother Hypertension CVD (cardiovascular disease) Surgical History H/O tubal ligation History of abdominal hysterectomy History of esophagogastroduodenoscopy (EGD) History of lithotripsy Hx of appendectomy Hx of arthroscopy of left knee Hx of arthroscopy of right knee Hx of colonoscopy Social History Household Members: Spouse Housing: House Do you presently have visiting nurse or other home services: No Alcohol intake: never Patient Tobacco Use Status: Never used Tobacco e-Cigarette/Vaping Use: Never Used Second Hand Smoke Exposure: No Use of substances other than those prescribed or required for medical reasons: No Currently Displaying Signs/Symptoms of Drug Intoxication Withdrawal: No Have you been hit, kicked, punched, or otherwise hurt by someone within the past year? If so, by whom?: No Do you feel safe in your current relationship?: Yes Is there a partner from a previous relationship who is making you feel unsafe now?: No Are you made to feel afraid or neglected: No Advance Directives: No Advance Directives Information Provided: No Do you have thoughts of harming others: None Do you have a plan to hurt others: No Plan Recently lost weight without trying: No Eating poorly because of decreased appetite: No Nutrition Risks: No Nutritional Risk Patient : No : No Poor oral hygiene: No service: No Current occupational status: employed Cognitive needs: No Hearing needs: No Vision needs: Yes Meds Allergies Allergy/AdvReac Type Severity Reaction Status Date / Time No Known Allergies [NKA] Allergy Mild NOT Verified 06/17/22 13:22 APPLICABLE Active Medications: Current Medications Pharmacy Consult (Consult Rx Perform Med Rec) 1 each MISCELLANE ONCE PRN PRN Reason: Consult order Home Medications Medication Instructions Recorded Confirmed Last Taken Type dicyclomine 10 mg capsule 1 cap PO BID PRN abdominal pain 06/22/22 06/22/22 Unknown History methylcellulose (laxative) 500 mg 1 tab PO DAILY 06/22/22 06/22/22 06/22/22 History tablet (Fiber Therapy (methylcellulose)) pantoprazole 40 mg tablet,delayed 40 mg PO DAILY@0630 06/22/22 06/22/22 06/22/22 History release simvastatin 10 mg tablet 1 tab PO BEDTIME 06/22/22 06/22/22 06/21/22 History Physical Exam Vital Signs and Narrative: Vital Signs: Last Vital Signs Temp 99.2 F 06/22/22 13:21 Pulse 102 H 06/22/22 13:21 Resp 18 06/22/22 13:21 BP 124/77 06/22/22 13:21 Pulse Ox 93 06/22/22 13:21 O2 Del Method 06/22/22 13:21 BMI result Body Mass Index 32.0 Const: Other: Constitutional: Alert, in no distress, overweight. Mental Status: Oriented to person, place and time. Eyes: Pupils are equal, round and reactive to light. Ear, Nose and Throat: Oropharynx clear, mucous membranes moist. Ears and nose without eformities. Trachea midline. Respiratory: Clear to auscultation. No wheezing, rales or rhonchi. Cardiovascular: S1 S2 regular. No murmurs, rubs or gallops. Gastrointestinal: Abdomen soft, severe tenderness especially towards the llq Neurologic: Cranial nerves II-XII grossly intact. No focal neurological deficits. Moves all extremities spontaneously.? Skin: No rashes or lesions.? Musculoskeletal: No cyanosis or clubbing. Psychiatric: Normal mood and affect? Results Labs 06/22/22 08:33 06/22/22 08:33 Labs: Laboratory Results - last 24 hr 06/22/22 06/22/22 06/22/22 08:33 08:33 08:48 MCV 85.0 MCH 28.2 MCHC 33.2 RDW 12.9 Plt Count 345 MPV 8.3 L Immature Gran % (Auto) 0.5 H Neut % (Auto) 80.2 H Lymph % (Auto) 12.1 L [place] % (Auto) 6.9 Eos % (Auto) 0.1 Baso % (Auto) 0.2 Lymph # (Auto) 2.1 [place] # (Auto) 1.2 Eos # (Auto) 0.0 Baso # (Auto) 0.0 Abs Immat Gran (auto) 0.09 H Absolute Neuts (auto) 13.9 H Absolute Nucleated RBC 0.000 Nucleated RBC % (auto) 0.0 Anion Gap 13 Estim Creat Clear Calc 75.7 Estimated GFR > 60 Random Glucose 149 H Calcium 9.9 Total Bilirubin 0.9 Direct Bilirubin 0.3 AST 14 ALT 22 Alkaline Phosphatase 105 Total Protein 7.4 Albumin 4.0 Lipase 14 Urine Color Yellow Urine Appearance Cloudy Urine pH 6.0 Ur Specific [place] 1.020 Urine Protein Trace Urine Glucose (UA) Negative Urine Ketones Negative Urine Blood Small (1+) H Urine Nitrite Negative Ur Leukocyte Esterase Trace H Urine RBC 0-2 Urine WBC 0-5 Ur Squamous Epith Cells 11-20 Urine Bacteria 1+ Hyaline Casts 0-2 Imaging Radiologist's Impressions: Impressions Abdomen/Pelvis CT 06/22/22 10:52 IMPRESSION: 1. Severe wall thickening of the sigmoid colon with pericolonic fat stranding and free fluid within a background of diverticulosis, most suggestive of acute diverticulitis. No free air or drainable collection. 2. Diffuse urinary bladder wall thickening with perivesical fat stranding, likely reactive. There is no air in the lumen of the urinary bladder. Recommend clinical correlation. 3. Prominent retroperitoneal and pelvic lymph nodes are likely reactive in nature. Assessment and Plan (1) Diverticulitis: Status: Acute Plan 57/F with acute, severe diverticulitis Plan: Admit, NPO, IV Abx, consider GI eval, morphine for pain HTN-continue Lisiopril HLD--Lipitor DVT--Prophylaxis, Lovenox need for inpatient...admission for severe diverticulitis that need iv antibiotics Time Spent With Patient Time: Total time managing care of this patient today ____ minutes. Quality Stroke Does the patient have a stroke diagnosis?: No VTE Prior VTE?: No VTE Risk Level:: Medical - moderate - high VTE Device Contraindication: Patient Refused VTE Drug Contraindication: N/A - Med Ordered
--- NOTE | 2022-06-22 16:44 | PHA.MEDREC ---
Pharmacy Consult ? Medication Reconciliation Pharmacy has completed the medication reconciliation. Spoke with patient in the ED, patient knew all medications
[2022-06-22] MEDS: Morphine Sulfate 4 MG/ML CARTRIDGE 2 MG IVPUSH (16:46)
[2022-06-22] MEDS: Dextrose 5 % and 0.45 % NaCl 1,000 ML 125 ML IVCONT (16:46)
[2022-06-22] MEDS: Enoxaparin Sodium 40 MG/0.4 ML SYRINGE SUBCUT (16:47)
--- NOTE | 2022-06-22 17:44 | MHC.CM.PN ---
CM met with admitted patient with bed assignment pending. 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. No HCP on file. Declines to complete at this time. Pfizer x2, Booster x2. No DME/services. D/C plan: Home without services. to transport home. CM will follow for any discharge needs.
[2022-06-22 18:17] LABS: IDNOW Serial# BCCEAD1C
[2022-06-22 18:18] LABS: COVID-19 Test Negative (Negative)
--- NOTE | 2022-06-22 19:52 | PC.NURSE ---
RN report given to LEANDRO Merino. Pt being transferred to room 346 and aware of plan of care.
[2022-06-22 20:15] VITALS: BMI 32.1
[2022-06-22 20:22] VITALS: BP 114/65; PULSE 98; RESP 18; TEMP 36; O2SAT 91
[2022-06-22] MEDS: 0.9 % Sodium Chloride Flush 3 ML SYRINGE IVFLUSH (23:45)
[2022-06-23] MEDS: Dextrose 5 % and 0.45 % NaCl 1,000 ML 125 ML IVCONT ×3 (00:57→20:54)
[2022-06-23 03:19] VITALS: BP 131/72; PULSE 91; RESP 18; TEMP 36.3; O2SAT 93
[2022-06-23] MEDS: Morphine Sulfate 4 MG/ML CARTRIDGE 2 MG IVPUSH ×2 (03:35→08:20)
[2022-06-23] MEDS: metroNIDAZOLE/NS 500 MG/100 ML PIGGYBACK 100 MG IV ×3 (06:24→23:52)
[2022-06-23 07:45] VITALS: BP 134/80; PULSE 94; RESP 18; TEMP 36.9; O2SAT 96
[2022-06-23] MEDS: ondansetron HCL 4 MG/2 ML VIAL IVPUSH ×2 (08:13→15:49)
[2022-06-23 08:58] LABS: Hematocrit 34.9 % (37.0-47.0); Hemoglobin 11.3 g/dl (12.0-16.0); Mean Corpuscular HGB Conc 32.4 g/dl (31.0-35.0); Mean Corpuscular Hemoglobin 27.6 pg (27.0-33.0); Mean Corpuscular Volume 85.1 fL (80.0-98.0); Mean Platelet Volume 8.6 fL (9.4-12.3); Platelet Count 309 X10*3/uL (160-400); Red Cell Distribution Width 12.6 % (11.0-16.0); White Blood Count 16.3 X10*3/uL (4.8-10.8)
--- NOTE | 2022-06-23 09:55 | HO.PM.IMPN ---
Subjective Subjective Date of Service: 06/23/22 Interval History: f/u on acute diverticulitis Review of Systems Gen: no fever Resp: no sob, no cough CV: no chest, no BRODERICK, no leg edema GI: No n/v, signficant abdominal pain Neuro: No confusion Physical Exam Vital Signs: Vital Signs: Last Vital Signs Temp 98.4 F 06/23/22 07:45 Pulse 94 06/23/22 07:45 Resp 18 06/23/22 07:45 BP 134/80 06/23/22 07:45 Pulse Ox 96 06/23/22 07:45 O2 Del Method 06/23/22 07:45 BMI result Body Mass Index 32.1 Const: Other: General: AO X 3, no acute distress Resp: CTA bilateral CVS: S1,S2,RRR GI: +BS, NT, mid abdomen and llq tenderness Skin: No rash Neuro: motor grossly intact Psych: appropriate affect Objective Data Active Medications Acetaminophen (Acetaminophen 325 Mg Tablet) 650 mg PO Q6H PRN PRN Reason: Pain, Mild (Pain Scale 1-3) Atorvastatin Calcium (Atorvastatin Calcium 10 Mg Tablet) 10 mg PO BEDTIME [facility] Calcium Polycarbophil (Calcium Polycarbophil Tablet) 1 tab PO DAILY [facility] Dicyclomine HCl (Dicyclomine Hcl 10 Mg Capsule) 10 mg PO BID PRN PRN Reason: abdominal pain Enoxaparin Sodium (Enoxaparin Sodium 40 Mg/0.4 Ml Syringe) 40 mg SUBCUT Q24H [facility] Last Admin: 06/22/22 16:47 Dose: 40 mg Documented By: SLIM Hydrochlorothiazide (Hydrochlorothiazide 12.5 Mg Tablet) 12.5 mg PO DAILY [facility]; Protocol Metronidazole (Flagyl) 500 mg in 100 mls @ 100 mls/hr IV Q8H [facility] Last Infusion: 06/23/22 07:33 Dose: 0 mls/hr Documented By: ELADIO Dextrose/Sodium Chloride (D51/2ns) 1,000 mls @ 125 mls/hr IVCONT .Q8H [facility] Last Infusion: 06/23/22 08:13 Dose: 125 mls/hr Documented By: ELADIO Levofloxacin (Levaquin) 750 mg in 150 mls @ 100 mls/hr IV Q24H [facility] Lisinopril (Lisinopril 5 Mg Tablet) 5 mg PO DAILY [facility]; Protocol Melatonin (Melatonin 3 Mg Tablet) 6 mg PO BEDTIME PRN PRN Reason: Insomnia Morphine Sulfate (Morphine Sulfate 4 Mg/Ml Cartridge) 2 mg IVPUSH Q4H PRN; Protocol PRN Reason: Pain, Severe (Pain Scale 7-10) Last Admin: 06/23/22 08:20 Dose: 2 mg Documented By: ELADIO Non-Formulary Medication (Linaclotide [Linzess]) 145 mcg PO DAILY [facility] Nystatin (Nystatin Oral Susp 500,000 Unit/5 Ml Oral.Susp) 500,000 unit PO TID [facility]; Protocol Omeprazole (Omeprazole 20 Mg Capsule.Dr) 20 mg PO DAILY@0630 [facility] Ondansetron HCl (Ondansetron Hcl 4 Mg/2 Ml Vial) 4 mg IVPUSH Q8H PRN PRN Reason: Nausea and Vomiting Last Admin: 06/23/22 08:13 Dose: 4 mg Documented By: ELADIO Pharmacy Consult (Consult Rx Perform Med Rec) 1 each MISCELLANE ONCE PRN PRN Reason: Consult order Sodium Chloride (0.9 % Sodium Chloride Flush 3 Ml Syringe) 3 ml IVFLUSH QSHIFT [facility] Last Admin: 06/23/22 08:25 Dose: Not Given Documented By: ELADIO Non-Admin Reason: IV Running Labs 06/23/22 08:31 06/22/22 08:33 Labs: Laboratory Results - last 24 hr 06/22/22 06/22/22 06/23/22 08:33 17:50 08:31 MCV 85.1 MCH 27.6 MCHC 32.4 RDW 12.6 Plt Count 309 MPV 8.6 L Absolute Nucleated RBC 0.000 Nucleated RBC % (auto) 0.0 Total Bilirubin 0.9 Direct Bilirubin 0.3 AST 14 ALT 22 Alkaline Phosphatase 105 Total Protein 7.4 Albumin 4.0 Lipase 14 COVID-19 ([facility]ASHTI) Negative COVID-19 Clin Com See Note Assessment and Plan (1) Diverticulitis: Status: Acute Plan 57/F with acute, severe diverticulitis Plan: Admit, NPO, IV Abx (Flagyl, levaquin D 2), consider GI eval, morphine for pain HTN-continue Lisiopril HLD--Lipitor DVT--Prophylaxis, Lovenox need for inpatient...admission for severe diverticulitis that need iv antibiotics Time Spent With Patient Time: Total time managing care of this patient today ____ minutes. Quality Stroke Does the patient have a stroke diagnosis?: No VTE Prior VTE?: No VTE Risk Level:: Medical - moderate - high VTE Device Contraindication: Patient Refused VTE Drug Contraindication: N/A - Med Ordered
[2022-06-23] MEDS: Nystatin Oral Susp 500,000 UNIT/5 ML ORAL.SUSP 500000 UNIT PO ×2 (11:13→20:53)
[2022-06-23] MEDS: hydroCHLOROthiazide 12.5 MG TABLET PO (11:14)
[2022-06-23] MEDS: lisinopriL 5 MG TABLET PO (11:14)
[2022-06-23] MEDS: Omeprazole 20 MG CAPSULE.DR PO (11:14)
--- NOTE | 2022-06-23 11:25 | PM.CNGS ---
History of Present Illness Consult details Consult date: 06/23/22 <JOELLEN Givens Last Filed: 06/23/22 11:48> Requesting physician: Giovanni Lopez <JOELLEN Givens Last Filed: 06/23/22 11:48> Narrative: 57 year old female with PMH including hypertension, hypercholesterolemia, GERD who presented to the ED with complaints of left sided abdominal pain since Tuesday. She reports it was sharp and stabbing in nature. It was associated with chills and nausea. It progressively worsened and therefore decided to seek care in the ED. Work up in the ED included a CT scan which showed diverticulosis, severe wall thickening of the sigmoid colon with pericolonic fat stranding and free fluid. No free air or abscess identified. She had a leukocytosis of 17.4. She [place] [facility] [place] diverticulitis with intramural abscess. This was her first episode. She improved with nonoperative measures. She is followed by [facility] for her diverticulosis, GERD and constipation. She has been awaiting colonoscopy however she states this is not scheduled yet. She was admitted to the medical service and started on IV flagyl/levaquin. Her WBC count is slightly improved this morning. She does not however report any improvement in her abdominal pain this morning. She is passing flatus. Her last BM was yesterday and was normal. <Cristiana Pena PA-C Last Filed: 06/23/22 11:48> Review of Systems Constitutional: Constitutional: Reports as per HPI and Denies malaise <JOELLEN Givens Last Filed: 06/23/22 11:48> ENT: Denies dizziness <JOELLEN Givens Last Filed: 06/23/22 11:48> Cardiovascular: Cardiovascular: Denies chest pain, Denies palpitations and Denies dyspnea <JOELLEN Givens Last Filed: 06/23/22 11:48> Respiratory: Respiratory: Denies cough and Denies dyspnea <JOELLEN Givens Last Filed: 06/23/22 11:48> Gastrointestinal: Gastrointestinal: Reports as per HPI, Reports abdominal pain, Denies hematochezia, Denies diarrhea, Reports nausea and Denies vomiting <Cristiana Pena PA-C - Last Filed: 06/23/22 11:48> Genitourinary: Genitourinary: Denies hematuria <Cristiana Pena PA-C Last Filed: 06/23/22 11:48> Integumentary/Breasts: Skin/Breast: Denies rash and Denies jaundice <Cristiana Pena PA-C Last Filed: 06/23/22 11:48> Neurologic: Denies dizziness and Denies focal weakness <Cristiana Pena PA-C Last Filed: 06/23/22 11:48> Endocrine: Endocrine: Denies palpitations <Cristiana Pena PA-C Last Filed: 06/23/22 11:48> PMF Past Medical History Medical History: Medical History Acute allergic reaction Anemia Diverticulitis Fatty liver GERD (gastroesophageal reflux disease) History of renal calculi Hypercholesterolemia Hypertension Irritable bowel syndrome Obesity (BMI 30-39.9) <Cristiana Pena PA-C Last Filed: 06/23/22 11:48> Family History Family History: Family History Father Brain tumor Mother Hypertension CVD (cardiovascular disease) <Cristiana Pena PA-C Last Filed: 06/23/22 11:48> Surgical History Surgical History: Surgical History H/O tubal ligation History of abdominal hysterectomy History of esophagogastroduodenoscopy (EGD) History of lithotripsy Hx of appendectomy Hx of arthroscopy of left knee Hx of arthroscopy of right knee Hx of colonoscopy <Cristiana Pena PA-C Last Filed: 06/23/22 11:48> Social History Social History: Social History Household Members: Spouse Housing: House Do you presently have visiting nurse or other home services: No Alcohol intake: never Patient Tobacco Use Status: Never used Tobacco e-Cigarette/Vaping Use: Never Used Second Hand Smoke Exposure: No Use of substances other than those prescribed or required for medical reasons: No Currently Displaying Signs/Symptoms of Drug Intoxication Withdrawal: No Have you been hit, kicked, punched, or otherwise hurt by someone within the past year? If so, by whom?: No Do you feel safe in your current relationship?: Yes Is there a partner from a previous relationship who is making you feel unsafe now?: No Are you made to feel afraid or neglected: No Advance Directives: No Advance Directives Information Provided: No Do you have thoughts of harming others: None Do you have a plan to hurt others: No Plan Recently lost weight without trying: No Eating poorly because of decreased appetite: No Nutrition Risks: No Nutritional Risk Patient : No : No Poor oral hygiene: No service: No Current occupational status: employed Cognitive needs: No Hearing needs: No Vision needs: Yes <Cristiana Pena PA-C - Last Filed: 06/23/22 11:48> Meds Allergies/Adverse reactions: Allergies Allergy/AdvReac Type Severity Reaction Status Date / Time No Known Allergies [NKA] Allergy Mild NOT Verified 06/17/22 13:22 APPLICABLE <Cristaina Pena PA-C - Last Filed: 06/23/22 11:48> Active Medications: Current Medications Acetaminophen (Acetaminophen 325 Mg Tablet) 650 mg PO Q6H PRN PRN Reason: Pain, Mild (Pain Scale 1-3) Atorvastatin Calcium (Atorvastatin Calcium 10 Mg Tablet) 10 mg PO BEDTIME [facility] Calcium Polycarbophil (Calcium Polycarbophil Tablet) 1 tab PO DAILY [facility] Last Admin: 06/23/22 10:34 Dose: Not Given Dicyclomine HCl (Dicyclomine Hcl 10 Mg Capsule) 10 mg PO BID PRN PRN Reason: abdominal pain Enoxaparin Sodium (Enoxaparin Sodium 40 Mg/0.4 Ml Syringe) 40 mg SUBCUT Q24H [facility] Last Admin: 06/22/22 16:47 Dose: 40 mg Hydrochlorothiazide (Hydrochlorothiazide 12.5 Mg Tablet) 12.5 mg PO DAILY [facility]; Protocol Last Admin: 06/23/22 11:14 Dose: 12.5 mg Metronidazole (Flagyl) 500 mg in 100 mls @ 100 mls/hr IV Q8H [facility] Last Infusion: 06/23/22 07:33 Dose: Infused Dextrose/Sodium Chloride (D51/2ns) 1,000 mls @ 125 mls/hr IVCONT .Q8H [facility] Last Admin: 06/23/22 10:33 Dose: 125 mls/hr Levofloxacin (Levaquin) 750 mg in 150 mls @ 100 mls/hr IV Q24H [facility] Lisinopril (Lisinopril 5 Mg Tablet) 5 mg PO DAILY [facility]; Protocol Last Admin: 06/23/22 11:14 Dose: 5 mg Melatonin (Melatonin 3 Mg Tablet) 6 mg PO BEDTIME PRN PRN Reason: Insomnia Morphine Sulfate (Morphine Sulfate 4 Mg/Ml Cartridge) 2 mg IVPUSH Q4H PRN; Protocol PRN Reason: Pain, Severe (Pain Scale 7-10) Last Admin: 06/23/22 08:20 Dose: 2 mg Non-Formulary Medication (Linaclotide [Linzess]) 145 mcg PO DAILY [facility] Nystatin (Nystatin Oral Susp 500,000 Unit/5 Ml Oral.Susp) 500,000 unit PO TID [facility]; Protocol Last Admin: 06/23/22 11:13 Dose: 500,000 unit Omeprazole (Omeprazole 20 Mg Capsule.Dr) 20 mg PO DAILY@0630 [facility] Last Admin: 06/23/22 11:14 Dose: 20 mg Ondansetron HCl (Ondansetron Hcl 4 Mg/2 Ml Vial) 4 mg IVPUSH Q8H PRN PRN Reason: Nausea and Vomiting Last Admin: 06/23/22 08:13 Dose: 4 mg Pharmacy Consult (Consult Rx Perform Med Rec) 1 each MISCELLANE ONCE PRN PRN Reason: Consult order Sodium Chloride (0.9 % Sodium Chloride Flush 3 Ml Syringe) 3 ml IVFLUSH QSHIFT [facility] Last Admin: 06/23/22 08:25 Dose: Not Given <Cristiana Pena PA-C - Last Filed: 06/23/22 11:48> Home medications: Home Medications Medication Instructions Recorded Confirmed Last Taken Type dicyclomine 10 mg capsule 1 cap PO BID PRN abdominal pain 06/22/22 06/22/22 Unknown History methylcellulose (laxative) 500 mg 1 tab PO DAILY 06/22/22 06/22/22 06/22/22 History tablet (Fiber Therapy (methylcellulose)) pantoprazole 40 mg tablet,delayed 40 mg PO DAILY@0630 06/22/22 06/22/22 06/22/22 History release simvastatin 10 mg tablet 1 tab PO BEDTIME 06/22/22 06/22/22 06/21/22 History <JOELLNE Givens Last Filed: 06/23/22 11:48> Physical Exam Vital Signs: Vital Signs: Last Vital Signs Temp 98.4 F 06/23/22 07:45 Pulse 94 06/23/22 07:45 Resp 18 06/23/22 07:45 BP 134/80 06/23/22 07:45 Pulse Ox 96 06/23/22 07:45 O2 Del Method 06/23/22 07:45 BMI result Body Mass Index 32.1 <JOELLEN Givens Last Filed: 06/23/22 11:48> Const: General: comfortable, no acute distress and alert <JOELLEN Givens Last Filed: 06/23/22 11:48> Orientation/consciousness: patient oriented x3 <JOELLEN Givens Last Filed: 06/23/22 11:48> Resp: Effort & Inspection: normal respiratory effort <JOELLEN Givens Last Filed: 06/23/22 11:48> Cardio: Rate: regular rate <JOELLEN Givens Last Filed: 06/23/22 11:48> GI: Inspection: No distended and Yes scar (midline scar extending from umbilicus to pubis ) <JOELLEN Givens Last Filed: 06/23/22 11:48> Palpation (GI): Soft to palpation, Tenderness to palpation present (GI) in the LLQ (marked tenderness with rebound), in the LUQ (mild) and suprapubicly, no guarding and not rigid <JOELLEN Givens Last Filed: 06/23/22 11:48> Skin: General skin exam: no rashes or lesions noted <JOELLEN Givens Last Filed: 06/23/22 11:48> Neuro: General: patient oriented x3 and moves all extremities <Cristiana Pena PA-C - Last Filed: 06/23/22 11:48> Extrem: General: Yes no clubbing, cyanosis or edema <Cristiana Pena PA-C - Last Filed: 06/23/22 11:48> Results Labs Result diagrams: 06/23/22 08:31 06/22/22 08:33 <JOELLEN Givens Last Filed: 06/23/22 11:48> Labs: Abnormal lab results 06/23/22 Range/Units 08:31 WBC 16.3 H (4.8-10.8) X10*3/uL RBC 4.10 L (4.20-5.50) X10*6/uL Hgb 11.3 L (12.0-16.0) g/dl Hct 34.9 L (37.0-47.0) % MPV 8.6 L (9.4-12.3) fL Short CBC 06/23/22 Range/Units 08:31 WBC 16.3 H (4.8-10.8) X10*3/uL Hgb 11.3 L (12.0-16.0) g/dl Hct 34.9 L (37.0-47.0) % Plt Count 309 (160-400) X10*3/uL Liver Function 06/22/22 Range/Units 08:33 Total Bilirubin 0.9 (0.0-1.0) mg/dL Direct Bilirubin 0.3 (0.0-0.5) mg/dL AST 14 (5-31) U/L ALT 22 (0-31) U/L Alkaline Phosphatase 105 (39-117) U/L Albumin 4.0 (3.5-5.0) g/dL Urine 06/22/22 Range/Units 08:48 Urine Color Yellow Urine Appearance Cloudy Urine pH 6.0 (5.0-9.0) Ur Specific [place] 1.020 (1.005-1.025) Urine Protein Trace (Neg-Trace) mg/dL Urine Glucose (UA) Negative (Negative) mg/dL All other labs normal. <JOELLEN Givens Last Filed: 06/23/22 11:48> Imaging Abdomen CT scan report/results: report reviewed and image reviewed <Cristiana Pena PA-C - Last Filed: 06/23/22 11:48> Assessment and Plan (1) Diverticulitis large intestine w/o perforation or abscess w/o bleeding: Status: Acute <Cristiana Pena PA-C - Last Filed: 06/23/22 11:48> History reviewed She she was admitted for a 5-6 day history of left lower quadrant pain CT scan distant with acute diverticulitis with significant inflammatory changes surrounding the mid sigmoid Tender in her left lower quadrant although no guarding or rebound, no fever WBC elevated, trending down today Continue current care with antibiotics, bowel rest Explained to her that if she does not improved promptly or clinically worsens, she will need urgent sigmoid resection and colostomy Seen and examined independently - agree with SILVIANO Pena <Piotr Ash MD - Last Filed: 06/23/22 13:04> 57 year old female with 4 day history LLQ pain with marked LLQ tenderness on exam and leukocytosis, CT scan showing sigmoid diverticulitis without abscess or perforation. She reports little to no improvement in her pain in this morning however WBC count slightly improved. CT showing diverticulitis with significant surrounding inflammatory changes. Would continue supportive measures at this point with IV abx, IVF and bowel rest. If she has no further improvement or worsens in the next 1-[address] scan to eval for abscess. Laparotomy, sigmoid resection discussed if worsens/no further improvement and discussed this would likely require colostomy. Will follow closely. Patient understands and is comfortable with plan. <Cristiana Pena PA-C - Last Filed: 06/23/22 11:48> Time Spent With Patient Time: Total time managing care of this patient today ____ minutes. <Cristiana Pena PA-C - Last Filed: 06/23/22 11:48> Procedures Date of Service Date of Service: 06/23/22 <JOELLEN Givens Last Filed: 06/23/22 11:48>
--- NOTE | 2022-06-23 12:19 | PM.GICN ---
History of Present Illness Data of Consult Service Date: 06/23/22 Requesting physician: Giovanni Lopez Primary Care Provider: Isaac Field MD HPI Reason for consult: diverticulitis 57 year old female with hx of hypertension, hypercholesterolemia, GERD who I am seeing for assessment for diverticulitis. She presented to the ED with sharp and stabbing left sided abdominal pain without radiation for 4-5 d associated with chills and nausea. The pain was 10/10 and still present today along with non bloody emesis. She does feel hungry but also feels tired and fatigued. She has not been passing gas or stool. No rectal bleeding. Ct scan revealed diverticulosis and wall thickening of sigmoid with stranding and free fluid. Of note she [place] [facility] [place]itis with intramural abscess which improved wt conservative measures. she has never had a colonoscopy. She has been started on IV flagyl/levaquin. Review of Systems Review of Systems: Constitutional : No Weight loss, No Fever, + Chills ENT/Mouth : No sore throat, No Rhinorrhea Eyes: No Swelling, No Redness Cardiovascular : No Chest Pain, No SOB, No Edema Respiratory : No Cough, No Sputum, No Wheezing Gastrointestinal : see HPI Genitourinary : NO Dysuria, No Urinary Frequency, No Hematuria, No Urgency Musculoskeletal : No joint pain, No Myalgias, No Joint Swelling Skin : No Skin Lesions, No rash Neuro : No Weakness, No Numbness, No Dizziness, No Headache Psych : No Anxiety/Panic, No Depression Heme/Lymph: No Bruising, No Lymphadenopathy Endocrine : No Polyuria, No Polydipsia All other systems reviewed and are negative. [facility] Past Medical History Medical History Acute allergic reaction Anemia Diverticulitis Fatty liver GERD (gastroesophageal reflux disease) History of renal calculi Hypercholesterolemia Hypertension Irritable bowel syndrome Obesity (BMI 30-39.9) Family History Family History Father Brain tumor Mother Hypertension CVD (cardiovascular disease) Surgical History Surgical History H/O tubal ligation History of abdominal hysterectomy History of esophagogastroduodenoscopy (EGD) History of lithotripsy Hx of appendectomy Hx of arthroscopy of left knee Hx of arthroscopy of right knee Hx of colonoscopy Social History Social History Household Members: Spouse Housing: House Do you presently have visiting nurse or other home services: No Alcohol intake: never Patient Tobacco Use Status: Never used Tobacco e-Cigarette/Vaping Use: Never Used Second Hand Smoke Exposure: No Use of substances other than those prescribed or required for medical reasons: No Currently Displaying Signs/Symptoms of Drug Intoxication Withdrawal: No Have you been hit, kicked, punched, or otherwise hurt by someone within the past year? If so, by whom?: No Do you feel safe in your current relationship?: Yes Is there a partner from a previous relationship who is making you feel unsafe now?: No Are you made to feel afraid or neglected: No Advance Directives: No Advance Directives Information Provided: No Do you have thoughts of harming others: None Do you have a plan to hurt others: No Plan Recently lost weight without trying: No Eating poorly because of decreased appetite: No Nutrition Risks: No Nutritional Risk Patient : No : No Poor oral hygiene: No service: No Current occupational status: employed Cognitive needs: No Hearing needs: No Vision needs: Yes Meds Allergies Allergy/AdvReac Type Severity Reaction Status Date / Time No Known Allergies [NKA] Allergy Mild NOT Verified 06/17/22 13:22 APPLICABLE Active Medications: Current Medications Acetaminophen (Acetaminophen 325 Mg Tablet) 650 mg PO Q6H PRN PRN Reason: Pain, Mild (Pain Scale 1-3) Atorvastatin Calcium (Atorvastatin Calcium 10 Mg Tablet) 10 mg PO BEDTIME [facility] Calcium Polycarbophil (Calcium Polycarbophil Tablet) 1 tab PO DAILY [facility] Last Admin: 06/23/22 10:34 Dose: Not Given Dicyclomine HCl (Dicyclomine Hcl 10 Mg Capsule) 10 mg PO BID PRN PRN Reason: abdominal pain Enoxaparin Sodium (Enoxaparin Sodium 40 Mg/0.4 Ml Syringe) 40 mg SUBCUT Q24H [facility] Last Admin: 06/22/22 16:47 Dose: 40 mg Hydrochlorothiazide (Hydrochlorothiazide 12.5 Mg Tablet) 12.5 mg PO DAILY [facility]; Protocol Last Admin: 06/23/22 11:14 Dose: 12.5 mg Metronidazole (Flagyl) 500 mg in 100 mls @ 100 mls/hr IV Q8H [facility] Last Infusion: 06/23/22 07:33 Dose: Infused Dextrose/Sodium Chloride (D51/2ns) 1,000 mls @ 125 mls/hr IVCONT .Q8H [facility] Last Admin: 06/23/22 10:33 Dose: 125 mls/hr Levofloxacin (Levaquin) 750 mg in 150 mls @ 100 mls/hr IV Q24H [facility] Lisinopril (Lisinopril 5 Mg Tablet) 5 mg PO DAILY [facility]; Protocol Last Admin: 06/23/22 11:14 Dose: 5 mg Melatonin (Melatonin 3 Mg Tablet) 6 mg PO BEDTIME PRN PRN Reason: Insomnia Morphine Sulfate (Morphine Sulfate 4 Mg/Ml Cartridge) 4 mg IVPUSH Q4H PRN; Protocol PRN Reason: Pain, Severe (Pain Scale 7-10) Non-Formulary Medication (Linaclotide [Linzess]) 145 mcg PO DAILY [facility] Nystatin (Nystatin Oral Susp 500,000 Unit/5 Ml Oral.Susp) 500,000 unit PO TID [facility]; Protocol Last Admin: 06/23/22 11:13 Dose: 500,000 unit Omeprazole (Omeprazole 20 Mg Capsule.Dr) 20 mg PO DAILY@0630 [facility] Last Admin: 06/23/22 11:14 Dose: 20 mg Ondansetron HCl (Ondansetron Hcl 4 Mg/2 Ml Vial) 4 mg IVPUSH Q8H PRN PRN Reason: Nausea and Vomiting Last Admin: 06/23/22 08:13 Dose: 4 mg Pharmacy Consult (Consult Rx Perform Med Rec) 1 each MISCELLANE ONCE PRN PRN Reason: Consult order Sodium Chloride (0.9 % Sodium Chloride Flush 3 Ml Syringe) 3 ml IVFLUSH QSHIFT [facility] Last Admin: 06/23/22 08:25 Dose: Not Given Home Medications Medication Instructions Recorded Confirmed Last Taken Type dicyclomine 10 mg capsule 1 cap PO BID PRN abdominal pain 06/22/22 06/22/22 Unknown History methylcellulose (laxative) 500 mg 1 tab PO DAILY 06/22/22 06/22/22 06/22/22 History tablet (Fiber Therapy (methylcellulose)) pantoprazole 40 mg tablet,delayed 40 mg PO DAILY@0630 06/22/22 06/22/22 06/22/22 History release simvastatin 10 mg tablet 1 tab PO BEDTIME 06/22/22 06/22/22 06/21/22 History Physical Exam Vital Signs: Vital Signs: Last Vital Signs Temp 98.4 F 06/23/22 07:45 Pulse 94 06/23/22 07:45 Resp 18 06/23/22 07:45 BP 134/80 06/23/22 07:45 Pulse Ox 96 06/23/22 07:45 O2 Del Method 06/23/22 07:45 BMI result Body Mass Index 32.1 Const: General: comfortable, no acute distress and alert Orientation/consciousness: patient oriented x3 HEENT: Head: Yes normal to inspection Eyes: General: appearance normal, both eyes and all related structures Neck: Neck: Yes normal visual inspection Resp: Effort & Inspection: normal respiratory effort Cardio: Rate: regular rate GI: Inspection: No distended and Yes scar (midline scar extending from umbilicus to pubis ) Palpation (GI): Soft to palpation, Tenderness to palpation present (GI) in the LLQ (marked tenderness with rebound), in the LUQ (mild) and suprapubicly, Guarding due to palpation present (GI) in the LLQ and not rigid Skin: General skin exam: no rashes or lesions noted Neuro: General: patient oriented x3 and moves all extremities Extrem: General: Yes no clubbing, cyanosis or edema Psych: Appearance: grossly normal Results Labs 06/23/22 08:31 06/22/22 08:33 Labs: Short CBC 06/23/22 Range/Units 08:31 WBC 16.3 H (4.8-10.8) X10*3/uL Hgb 11.3 L (12.0-16.0) g/dl Hct 34.9 L (37.0-47.0) % Plt Count 309 (160-400) X10*3/uL Liver Function 06/22/22 Range/Units 08:33 Total Bilirubin 0.9 (0.0-1.0) mg/dL Direct Bilirubin 0.3 (0.0-0.5) mg/dL AST 14 (5-31) U/L ALT 22 (0-31) U/L Alkaline Phosphatase 105 (39-117) U/L Albumin 4.0 (3.5-5.0) g/dL Imaging CT scan - abdomen: Attestation: I personally reviewed and interpreted this imaging study as follows: (sigmoid colitis and diverticulitis, with stranding and free fluid) Assessment and Plan (1) Sigmoid diverticulitis: Status: Acute Plan 1/ Recurrent sigmoid diverticulitis with slow response to treatment, still has guarding and tenderness LLQ, need to make sure no abscess formation or micro perforation. She is being followed by surgical team as well. PLAN: 1/ Cont ABX 2/ f/u with surgery -would hold on colonoscopy --if she improves then can be done in 4-6 weeks, if needs surgery then would still need colonoscopy but can be deferred till later date. Time Spent With Patient Time: Total time managing care of this patient today ____ minutes. Procedures Date of Service Date of Service: 06/23/22
[2022-06-23] MEDS: Morphine Sulfate 4 MG/ML CARTRIDGE IVPUSH ×2 (12:22→20:52)
[2022-06-23] MEDS: levoFLOXacin/D5W 750 MG/150 ML PIGGYBACK 100 MG IV (14:04)
[2022-06-23 16:00] VITALS: BP 125/71; PULSE 92; RESP 18; TEMP 36.5; O2SAT 92
[2022-06-23] MEDS: 0.9 % Sodium Chloride Flush 3 ML SYRINGE IVFLUSH ×2 (16:08→23:52)
[2022-06-23] MEDS: Enoxaparin Sodium 40 MG/0.4 ML SYRINGE SUBCUT (16:08)
[2022-06-23 20:00] VITALS: BP 124/74; PULSE 95; RESP 18; TEMP 36.4; O2SAT 95
[2022-06-23] MEDS: Atorvastatin Calcium 10 MG TABLET PO (20:53)
[2022-06-24 03:48] VITALS: BP 138/84; PULSE 93; RESP 18; TEMP 36.8; O2SAT 93
[2022-06-24] MEDS: Dextrose 5 % and 0.45 % NaCl 1,000 ML 125 ML IVCONT (05:27)
[2022-06-24] MEDS: Omeprazole 20 MG CAPSULE.DR PO (05:49)
[2022-06-24] MEDS: metroNIDAZOLE/NS 500 MG/100 ML PIGGYBACK 100 MG IV ×3 (06:36→22:47)
[2022-06-24 07:53] VITALS: BP 146/86; PULSE 87; RESP 18; TEMP 36.9; O2SAT 92
[2022-06-24] MEDS: lisinopriL 5 MG TABLET PO (08:16)
[2022-06-24] MEDS: calcium polycarbophiL TABLET 1 TAB PO (08:16)
[2022-06-24] MEDS: Nystatin Oral Susp 500,000 UNIT/5 ML ORAL.SUSP 500000 UNIT PO ×3 (08:16→20:22)
[2022-06-24] MEDS: Acetaminophen 325 MG TABLET 650 MG PO ×2 (08:16→14:25)
[2022-06-24] MEDS: hydroCHLOROthiazide 12.5 MG TABLET PO (08:16)
[2022-06-24] MEDS: 0.9 % Sodium Chloride Flush 3 ML SYRINGE IVFLUSH ×2 (08:17→16:05)
--- NOTE | 2022-06-24 08:23 | P.PNGS_ITS ---
Subjective Subjective Date of Service: 06/24/22 <Cristiana Pena PA-C - Last Filed: 06/24/22 08:26> 06/24/22 <Piotr Ash MD - Last Filed: 06/24/22 08:29> Interval history: Feels a little better this morning, pain somewhat improved. <JOELLEN Givens Last Filed: 06/24/22 08:26> Physical Exam Vital Signs: Vital Signs: Last Vital Signs Temp 98.4 F 06/24/22 07:53 Pulse 87 06/24/22 07:53 Resp 18 06/24/22 07:53 BP 146/86 H 06/24/22 07:53 Pulse Ox 92 06/24/22 07:53 O2 Del Method Nasal Cannula 06/24/22 07:53 BMI result Body Mass Index 32.1 <JOELLEN Givens Last Filed: 06/24/22 08:26> Const: General: no acute distress and alert <Cristiana Pena PA-C - Last Filed: 06/24/22 08:26> Orientation/consciousness: patient oriented x3 <Cristiana Pena PA-C - Last Filed: 06/24/22 08:26> Resp: Effort & Inspection: normal respiratory effort <JOELLEN Givens Last Filed: 06/24/22 08:26> GI: Inspection: No distended <JOELLEN Givens Last Filed: 06/24/22 08:26> Palpation (GI): Soft to palpation, Tenderness to palpation present (GI) in the LLQ and suprapubicly, no guarding and not rigid <JOELLEN Givens Last Filed: 06/24/22 08:26> Skin: General skin exam: no rashes or lesions noted <JOELLEN Givens Last Filed: 06/24/22 08:26> Neuro: General: patient oriented x3 and moves all extremities <JOELLEN Givens Last Filed: 06/24/22 08:26> Extrem: General: Yes no clubbing, cyanosis or edema <JOELLEN Givens Last Filed: 06/24/22 08:26> Objective Data Active Medications Acetaminophen (Acetaminophen 325 Mg Tablet) 650 mg PO Q6H PRN PRN Reason: Pain, Mild (Pain Scale 1-3) Last Admin: 06/24/22 08:16 Dose: 650 mg Documented By: DESIRE Atorvastatin Calcium (Atorvastatin Calcium 10 Mg Tablet) 10 mg PO BEDTIME [facility] Last Admin: 06/23/22 20:53 Dose: 10 mg Documented By: BRADLY Calcium Polycarbophil (Calcium Polycarbophil Tablet) 1 tab PO DAILY [facility] Last Admin: 06/24/22 08:16 Dose: 1 tab Documented By: DESIRE Dicyclomine HCl (Dicyclomine Hcl 10 Mg Capsule) 10 mg PO BID PRN PRN Reason: abdominal pain Enoxaparin Sodium (Enoxaparin Sodium 40 Mg/0.4 Ml Syringe) 40 mg SUBCUT Q24H [facility] Last Admin: 06/23/22 16:08 Dose: 40 mg Documented By: BRADLY Hydrochlorothiazide (Hydrochlorothiazide 12.5 Mg Tablet) 12.5 mg PO DAILY [facility]; Protocol Last Admin: 06/24/22 08:16 Dose: 12.5 mg Documented By: DESIRE Metronidazole (Flagyl) 500 mg in 100 mls @ 100 mls/hr IV Q8H [facility] Last Infusion: 06/24/22 08:19 Dose: 0 mls/hr Documented By: DESIRE Dextrose/Sodium Chloride (D51/2ns) 1,000 mls @ 125 mls/hr IVCONT .Q8H [facility] Last Infusion: 06/24/22 08:19 Dose: 125 mls/hr Documented By: DESIRE Levofloxacin (Levaquin) 750 mg in 150 mls @ 100 mls/hr IV Q24H [facility] Last Infusion: 06/23/22 16:22 Dose: 0 mls/hr Documented By: BRADLY Lisinopril (Lisinopril 5 Mg Tablet) 5 mg PO DAILY [facility]; Protocol Last Admin: 06/24/22 08:16 Dose: 5 mg Documented By: DESIRE Melatonin (Melatonin 3 Mg Tablet) 6 mg PO BEDTIME PRN PRN Reason: Insomnia Morphine Sulfate (Morphine Sulfate 4 Mg/Ml Cartridge) 4 mg IVPUSH Q4H PRN; Protocol PRN Reason: Pain, Severe (Pain Scale 7-10) Last Admin: 06/23/22 20:52 Dose: 4 mg Documented By: BRADLY Non-Formulary Medication (Linaclotide [Linzess]) 145 mcg PO DAILY [facility] Nystatin (Nystatin Oral Susp 500,000 Unit/5 Ml Oral.Susp) 500,000 unit PO TID [facility]; Protocol Last Admin: 06/24/22 08:16 Dose: 500,000 unit Documented By: DESIRE Omeprazole (Omeprazole 20 Mg Capsule.Dr) 20 mg PO DAILY@0630 [facility] Last Admin: 06/24/22 05:49 Dose: 20 mg Documented By: TYESHA Ondansetron HCl (Ondansetron Hcl 4 Mg/2 Ml Vial) 4 mg IVPUSH Q8H PRN PRN Reason: Nausea and Vomiting Last Admin: 06/23/22 15:49 Dose: 4 mg Documented By: BRADLY Pharmacy Consult (Consult Rx Perform Med Rec) 1 each MISCELLANE ONCE PRN PRN Reason: Consult order Sodium Chloride (0.9 % Sodium Chloride Flush 3 Ml Syringe) 3 ml IVFLUSH QSHIFT [facility] Last Admin: 06/24/22 08:17 Dose: 3 ml Documented By: DESIRE <Cristiana Pena PA-C - Last Filed: 06/24/22 08:26> Labs CBC & Chem 7: 06/23/22 08:31 06/22/22 08:33 <Cristiana Pena PA-C - Last Filed: 06/24/22 08:26> Labs: Laboratory Results - last 24 hr 06/23/22 08:31 MCV 85.1 MCH 27.6 MCHC 32.4 RDW 12.6 Plt Count 309 MPV 8.6 L Absolute Nucleated RBC 0.000 Nucleated RBC % (auto) 0.0 <Cristiana Pena PA-C - Last Filed: 06/24/22 08:26> Procedures Date of Service Date of Service: 06/24/22 <Cristiana Pena PA-C - Last Filed: 06/24/22 08:26> Progress Note: A&P Assessment and plan (1) Sigmoid diverticulitis: Status: Acute <JOELLEN Givens Last Filed: 06/24/22 08:26> Assessment and Plan: pt says she feels better this morning still sore but signfiicantly improved abd soft, tender on LLQ with no guarding or rebound may have sips of clears would go slowly diet advancement IV abx seen and examined independently <Piotr Ash MD - Last Filed: 06/24/22 08:29> Assessment and Plan: 57 year old female with recurrent sigmoid diverticulitis. Pain slightly improved this am. Abd soft, nondistended, lLLQ/suprapubic tenderness persists but no peritoneal signs. Can continue supportive measures for now, sips of clears. <Cristiana Pena PA-C - Last Filed: 06/24/22 08:26> Time Spent With Patient Time: Total time managing care of this patient today ____ minutes. <Cristiana Pena PA-C - Last Filed: 06/24/22 08:26> Quality Stroke Does the patient have a stroke diagnosis?: No <Cristiana Pena PA-C - Last Filed: 06/24/22 08:26> VTE Prior VTE?: No <Cristiana Pena PA-C - Last Filed: 06/24/22 08:26> VTE Risk Level:: Medical - moderate - high <Cristiana Pena PA-C - Last Filed: 06/24/22 08:26> VTE Device Contraindication: Patient Refused <Cristiana Pena PA-C - Last Filed: 06/24/22 08:26> VTE Drug Contraindication: N/A - Med Ordered <Cristiana Pena PA-C - Last Filed: 06/24/22 08:26>
--- NOTE | 2022-06-24 08:35 | P.PNIM_ITS ---
Subjective Subjective Date of Service: 06/24/22 Interval History: f/u on acute diverticulitis pain is less today and feels more comfortable Review of Systems abd pain no n/v Physical Exam Vital Signs: Vital Signs: Last Vital Signs Temp 98.4 F 06/24/22 07:53 Pulse 87 06/24/22 07:53 Resp 18 06/24/22 07:53 BP 146/86 H 06/24/22 07:53 Pulse Ox 92 06/24/22 07:53 O2 Del Method Nasal Cannula 06/24/22 07:53 BMI result Body Mass Index 32.1 Const: Other: General: AO X 3, no acute distress Resp: CTA bilateral CVS: S1,S2,RRR GI: +BS, NT, mid abdomen and llq tenderness, slightly better Skin: No rash Neuro: motor grossly intact Psych: appropriate affect Objective Data Active Medications Acetaminophen (Acetaminophen 325 Mg Tablet) 650 mg PO Q6H PRN PRN Reason: Pain, Mild (Pain Scale 1-3) Last Admin: 06/24/22 08:16 Dose: 650 mg Documented By: DESIRE Atorvastatin Calcium (Atorvastatin Calcium 10 Mg Tablet) 10 mg PO BEDTIME [facility] Last Admin: 06/23/22 20:53 Dose: 10 mg Documented By: BRADLY Calcium Polycarbophil (Calcium Polycarbophil Tablet) 1 tab PO DAILY [facility] Last Admin: 06/24/22 08:16 Dose: 1 tab Documented By: DESIRE Dicyclomine HCl (Dicyclomine Hcl 10 Mg Capsule) 10 mg PO BID PRN PRN Reason: abdominal pain Enoxaparin Sodium (Enoxaparin Sodium 40 Mg/0.4 Ml Syringe) 40 mg SUBCUT Q24H [facility] Last Admin: 06/23/22 16:08 Dose: 40 mg Documented By: BRADLY Hydrochlorothiazide (Hydrochlorothiazide 12.5 Mg Tablet) 12.5 mg PO DAILY [facility]; Protocol Last Admin: 06/24/22 08:16 Dose: 12.5 mg Documented By: DESIRE Metronidazole (Flagyl) 500 mg in 100 mls @ 100 mls/hr IV Q8H [facility] Last Infusion: 06/24/22 08:19 Dose: 0 mls/hr Documented By: DESIRE Dextrose/Sodium Chloride (D51/2ns) 1,000 mls @ 125 mls/hr IVCONT .Q8H [facility] Last Infusion: 06/24/22 08:19 Dose: 125 mls/hr Documented By: DESIRE Levofloxacin (Levaquin) 750 mg in 150 mls @ 100 mls/hr IV Q24H [facility] Last Infusion: 06/23/22 16:22 Dose: 0 mls/hr Documented By: BRADLY Lisinopril (Lisinopril 5 Mg Tablet) 5 mg PO DAILY [facility]; Protocol Last Admin: 06/24/22 08:16 Dose: 5 mg Documented By: DESIRE Melatonin (Melatonin 3 Mg Tablet) 6 mg PO BEDTIME PRN PRN Reason: Insomnia Morphine Sulfate (Morphine Sulfate 4 Mg/Ml Cartridge) 4 mg IVPUSH Q4H PRN; P rotocol PRN Reason: Pain, Severe (Pain Scale 7-10) Last Admin: 06/23/22 20:52 Dose: 4 mg Documented By: BRADLY Non-Formulary Medication (Linaclotide [Linzess]) 145 mcg PO DAILY [facility] Nystatin (Nystatin Oral Susp 500,000 Unit/5 Ml Oral.Susp) 500,000 unit PO TID [facility]; Protocol Last Admin: 06/24/22 08:16 Dose: 500,000 unit Documented By: DESIRE Omeprazole (Omeprazole 20 Mg Capsule.Dr) 20 mg PO DAILY@0630 [facility] Last Admin: 06/24/22 05:49 Dose: 20 mg Documented By: TYESHA Ondansetron HCl (Ondansetron Hcl 4 Mg/2 Ml Vial) 4 mg IVPUSH Q8H PRN PRN Reason: Nausea and Vomiting Last Admin: 06/23/22 15:49 Dose: 4 mg Documented By: BRADLY Pharmacy Consult (Consult Rx Perform Med Rec) 1 each MISCELLANE ONCE PRN PRN Reason: Consult order Sodium Chloride (0.9 % Sodium Chloride Flush 3 Ml Syringe) 3 ml IVFLUSH QSHIFT [facility] Last Admin: 06/24/22 08:17 Dose: 3 ml Documented By: DESIRE Labs 06/23/22 08:31 06/22/22 08:33 Labs: Laboratory Results - last 24 hr 06/23/22 08:31 MCV 85.1 MCH 27.6 MCHC 32.4 RDW 12.6 Plt Count 309 MPV 8.6 L Absolute Nucleated RBC 0.000 Nucleated RBC % (auto) 0.0 Assessment and Plan (1) Diverticulitis: Status: Acute Plan 57/F with acute, severe diverticulitis Plan: Severe recurent sigmoid diverticulitis -IV Abx (Flagyl, levaquin D 3) -surgery following and doesn't improve will need colectomy -GI will consider colonoscopy in the future -IV morphine for pain -continue IVF while NPO HTN-continue Lisiopril HLD--Lipitor DVT--Prophylaxis, Lovenox need for inpatient...admission for severe diverticulitis that need iv antibiotics Time Spent With Patient Time: Total time managing care of this patient today ____ minutes. Quality Stroke Does the patient have a stroke diagnosis?: No VTE Prior VTE?: No VTE Risk Level:: Medical - moderate - high VTE Device Contraindication: Patient Refused VTE Drug Contraindication: N/A - Med Ordered
[2022-06-24 08:45] LABS: Hematocrit 32.3 % (37.0-47.0); Hemoglobin 10.6 g/dl (12.0-16.0); Mean Corpuscular HGB Conc 32.8 g/dl (31.0-35.0); Mean Corpuscular Volume 85.4 fL (80.0-98.0); Mean Platelet Volume 8.6 fL (9.4-12.3); Platelet Count 310 X10*3/uL (160-400); Red Blood Count 3.78 X10*6/uL (4.20-5.50); Red Cell Distribution Width 12.5 % (11.0-16.0); White Blood Count 12.3 X10*3/uL (4.8-10.8)
[2022-06-24] MEDS: levoFLOXacin/D5W 750 MG/150 ML PIGGYBACK 100 MG IV (13:02)
[2022-06-24 15:37] VITALS: BP 153/96; PULSE 85; RESP 18; TEMP 36.6; O2SAT 98
[2022-06-24] MEDS: Enoxaparin Sodium 40 MG/0.4 ML SYRINGE SUBCUT (16:05)
[2022-06-24] MEDS: Lactated Ringers 1,000 ML 125 ML IVCONT (18:31)
[2022-06-24 19:13] VITALS: BP 134/83; PULSE 80; RESP 18; TEMP 36.2; O2SAT 96
[2022-06-24] MEDS: Atorvastatin Calcium 10 MG TABLET PO (20:22)
[2022-06-24] MEDS: ondansetron HCL 4 MG/2 ML VIAL IVPUSH (20:27)
[2022-06-25] MEDS: Lactated Ringers 1,000 ML 125 ML IVCONT ×3 (02:59→20:24)
[2022-06-25] MEDS: Acetaminophen 325 MG TABLET 650 MG PO (03:01)
[2022-06-25 03:16] VITALS: BP 122/73; PULSE 85; RESP 18; TEMP 37; O2SAT 94
[2022-06-25] MEDS: metroNIDAZOLE/NS 500 MG/100 ML PIGGYBACK 100 MG IV ×3 (06:11→22:29)
[2022-06-25] MEDS: Omeprazole 20 MG CAPSULE.DR PO (06:11)
[2022-06-25 07:31] VITALS: BP 137/82; PULSE 79; RESP 18; TEMP 36.7; O2SAT 94
--- NOTE | 2022-06-25 08:08 | PM.PNGS ---
Subjective Subjective Date of Service: 06/25/22 <Cristiana Pena PA-C - Last Filed: 06/25/22 08:10> 06/25/22 <Piotr Ash MD - Last Filed: 06/25/22 11:46> Interval history: Abd pain improved. Wants to try liquids. <Cristiana Pena PA-C - Last Filed: 06/25/22 08:10> Physical Exam Vital Signs: Vital Signs: Last Vital Signs Temp 98.1 F 06/25/22 07:31 Pulse 79 06/25/22 07:31 Resp 18 06/25/22 07:31 BP 137/82 06/25/22 07:31 Pulse Ox 94 06/25/22 07:31 O2 Del Method 06/25/22 07:31 BMI result Body Mass Index 32.1 <Cristiana Pena PA-C - Last Filed: 06/25/22 08:10> Const: General: comfortable, no acute distress and alert <Cristiana Pena PA-C - Last Filed: 06/25/22 08:10> Orientation/consciousness: patient oriented x3 <Cristiana Pena PA-C - Last Filed: 06/25/22 08:10> Resp: Effort & Inspection: normal respiratory effort <JOELLEN Givens Last Filed: 06/25/22 08:10> GI: Inspection: No distended <Cristiana Pena PA-C - Last Filed: 06/25/22 08:10> Palpation (GI): Soft to palpation, Tenderness to palpation present (GI) in the LLQ and suprapubicly, no guarding and not rigid <Cristiana Pena PA-C - Last Filed: 06/25/22 08:10> Skin: General skin exam: no rashes or lesions noted <JOELLEN Givens Last Filed: 06/25/22 08:10> Neuro: General: patient oriented x3 <JOELLEN Givens Last Filed: 06/25/22 08:10> Objective Data Active Medications Acetaminophen (Acetaminophen 325 Mg Tablet) 650 mg PO Q6H PRN PRN Reason: Pain, Mild (Pain Scale 1-3) Last Admin: 06/25/22 03:01 Dose: 650 mg Documented By: EMANEUL Atorvastatin Calcium (Atorvastatin Calcium 10 Mg Tablet) 10 mg PO BEDTIME [facility] Last Admin: 06/24/22 20:22 Dose: 10 mg Documented By: EMANUEL Calcium Polycarbophil (Calcium Polycarbophil Tablet) 1 tab PO DAILY [facility] Last Admin: 06/24/22 08:16 Dose: 1 tab Documented By: DESIRE Dicyclomine HCl (Dicyclomine Hcl 10 Mg Capsule) 10 mg PO BID PRN PRN Reason: abdominal pain Enoxaparin Sodium (Enoxaparin Sodium 40 Mg/0.4 Ml Syringe) 40 mg SUBCUT Q24H [facility] Last Admin: 06/24/22 16:05 Dose: 40 mg Documented By: DESIRE Hydrochlorothiazide (Hydrochlorothiazide 12.5 Mg Tablet) 12.5 mg PO DAILY [facility]; Protocol Last Admin: 06/24/22 08:16 Dose: 12.5 mg Documented By: DESIRE Metronidazole (Flagyl) 500 mg in 100 mls @ 100 mls/hr IV Q8H [facility] Last Infusion: 06/25/22 07:14 Dose: 0 mls/hr Documented By: DESIRE Levofloxacin (Levaquin) 750 mg in 150 mls @ 100 mls/hr IV Q24H [facility] Last Infusion: 06/24/22 15:04 Dose: 0 mls/hr Documented By: DESIRE Lactated Ringer's (Lr) 1,000 mls @ 125 mls/hr IVCONT .Q8H [facility] Last Admin: 06/25/22 02:59 Dose: 125 mls/hr Documented By: EMANUEL Lisinopril (Lisinopril 5 Mg Tablet) 5 mg PO DAILY [facility]; Protocol Last Admin: 06/24/22 08:16 Dose: 5 mg Documented By: DESIRE Melatonin (Melatonin 3 Mg Tablet) 6 mg PO BEDTIME PRN PRN Reason: Insomnia Morphine Sulfate (Morphine Sulfate 4 Mg/Ml Cartridge) 4 mg IVPUSH Q4H PRN; Protocol PRN Reason: Pain, Severe (Pain Scale 7-10) Last Admin: 06/23/22 20:52 Dose: 4 mg Documented By: BRADLY Non-Formulary Medication (Linaclotide [Linzess]) 145 mcg PO DAILY [facility] Nystatin (Nystatin Oral Susp 500,000 Unit/5 Ml Oral.Susp) 500,000 unit PO TID [facility]; Protocol Last Admin: 06/24/22 20:22 Dose: 500,000 unit Documented By: EMANUEL Omeprazole (Omeprazole 20 Mg Capsule.Dr) 20 mg PO DAILY@0630 [facility] Last Admin: 06/25/22 06:11 Dose: 20 mg Documented By: EMANUEL Ondansetron HCl (Ondansetron Hcl 4 Mg/2 Ml Vial) 4 mg IVPUSH Q8H PRN PRN Reason: Nausea and Vomiting Last Admin: 06/24/22 20:27 Dose: 4 mg Documented By: EMANUEL Pharmacy Consult (Consult Rx Perform Med Rec) 1 each MISCELLANE ONCE PRN PRN Reason: Consult order Sodium Chloride (0.9 % Sodium Chloride Flush 3 Ml Syringe) 3 ml IVFLUSH QSHIFT [facility] Last Admin: 06/25/22 07:09 Dose: Not Given Documented By: DESIRE Non-Admin Reason: IV Running <Cristiana Pena PA-C - Last Filed: 06/25/22 08:10> Labs CBC & Chem 7: 06/24/22 08:35 06/22/22 08:33 <Cristiana Pena PA-C - Last Filed: 06/25/22 08:10> Labs: Laboratory Results - last 24 hr 06/24/22 08:35 MCV 85.4 MCH 28.0 MCHC 32.8 RDW 12.5 Plt Count 310 MPV 8.6 L Absolute Nucleated RBC 0.000 Nucleated RBC % (auto) 0.0 <Cristiana Pena PA-C - Last Filed: 06/25/22 08:10> Procedures Date of Service Date of Service: 06/25/22 <Cristiana Pena PA-C - Last Filed: 06/25/22 08:10> Progress Note: A&P Assessment and plan (1) Sigmoid diverticulitis: Status: Acute <JOELLEN Givens Last Filed: 06/25/22 08:10> Assessment and Plan: continues to feel better although still with some pain abd remains soft and benign no fever looks well clear liquids advance diet slowly IV abx seen and examined - agree with SILVIANO Pena <Piotr Ash MD - Last Filed: 06/25/22 11:46> Assessment and Plan: 57 year old female with recurrent sigmoid diverticulitis. Improving with supportive measures, WBC improved this am. Abd soft, significantly less tender. Will advance to clear liquids for now. Cont IV abx. <Cristiana Pena PA-C - Last Filed: 06/25/22 08:10> Time Spent With Patient Time: Total time managing care of this patient today ____ minutes. <Cristiana Pena PA-C - Last Filed: 06/25/22 08:10> Quality Stroke Does the patient have a stroke diagnosis?: No <Cristiana Pena PA-C - Last Filed: 06/25/22 08:10> VTE Prior VTE?: No <Cristiana Pena PA-C - Last Filed: 06/25/22 08:10> VTE Risk Level:: Medical - moderate - high <Cristiana Pena PA-C - Last Filed: 06/25/22 08:10> VTE Device Contraindication: Patient Refused <Cristiana Pena PA-C - Last Filed: 06/25/22 08:10> VTE Drug Contraindication: N/A - Med Ordered <Cristiana Pena PA-C - Last Filed: 06/25/22 08:10>
[2022-06-25] MEDS: Nystatin Oral Susp 500,000 UNIT/5 ML ORAL.SUSP 500000 UNIT PO ×2 (08:12→20:23)
[2022-06-25] MEDS: hydroCHLOROthiazide 12.5 MG TABLET PO (08:12)
[2022-06-25] MEDS: lisinopriL 5 MG TABLET PO (08:12)
[2022-06-25] MEDS: calcium polycarbophiL TABLET 1 TAB PO (08:12)
--- NOTE | 2022-06-25 09:03 | P.PNIM_ITS ---
Subjective Subjective Date of Service: 06/25/22 Interval History: f/u on acute diverticulitis pain is 2/3, overall more comfortable Review of Systems abd pain no n/v Physical Exam Vital Signs: Vital Signs: Last Vital Signs Temp 98.1 F 06/25/22 07:31 Pulse 79 06/25/22 07:31 Resp 18 06/25/22 07:31 BP 137/82 06/25/22 07:31 Pulse Ox 94 06/25/22 07:31 O2 Del Method 06/25/22 07:31 BMI result Body Mass Index 32.1 Const: Other: General: AO X 3, no acute distress Resp: CTA bilateral CVS: S1,S2,RRR GI: +BS, NT, mid abdomen and llq tenderness, slightly better Skin: No rash Neuro: motor grossly intact Psych: appropriate affect Objective Data Active Medications Acetaminophen (Acetaminophen 325 Mg Tablet) 650 mg PO Q6H PRN PRN Reason: Pain, Mild (Pain Scale 1-3) Last Admin: 06/25/22 03:01 Dose: 650 mg Documented By: EMANUEL Atorvastatin Calcium (Atorvastatin Calcium 10 Mg Tablet) 10 mg PO BEDTIME [facility] Last Admin: 06/24/22 20:22 Dose: 10 mg Documented By: EMANUEL Calcium Polycarbophil (Calcium Polycarbophil Tablet) 1 tab PO DAILY [facility] Last Admin: 06/25/22 08:12 Dose: 1 tab Documented By: DESIRE Dicyclomine HCl (Dicyclomine Hcl 10 Mg Capsule) 10 mg PO BID PRN PRN Reason: abdominal pain Enoxaparin Sodium (Enoxaparin Sodium 40 Mg/0.4 Ml Syringe) 40 mg SUBCUT Q24H [facility] Last Admin: 06/24/22 16:05 Dose: 40 mg Documented By: DESIRE Hydrochlorothiazide (Hydrochlorothiazide 12.5 Mg Tablet) 12.5 mg PO DAILY [facility]; Protocol Last Admin: 06/25/22 08:12 Dose: 12.5 mg Documented By: DESIRE Metronidazole (Flagyl) 500 mg in 100 mls @ 100 mls/hr IV Q8H [facility] Last Infusion: 06/25/22 07:14 Dose: 0 mls/hr Documented By: DESIRE Levofloxacin (Levaquin) 750 mg in 150 mls @ 100 mls/hr IV Q24H [facility] Last Infusion: 06/24/22 15:04 Dose: 0 mls/hr Documented By: DESIRE Lactated Ringer's (Lr) 1,000 mls @ 125 mls/hr IVCONT .Q8H [facility] Last Admin: 06/25/22 02:59 Dose: 125 mls/hr Documented By: EMANUEL Lisinopril (Lisinopril 5 Mg Tablet) 5 mg PO DAILY [facility]; Protocol Last Admin: 06/25/22 08:12 Dose: 5 mg Documented By: DESIRE Melatonin (Melatonin 3 Mg Tablet) 6 mg PO BEDTIME PRN PRN Reason: Insomnia Morphine Sulfate (Morphine Sulfate 4 Mg/Ml Cartridge) 4 mg IVPUSH Q4H PRN; Protocol PRN Reason: Pain, Severe (Pain Scale 7-10) Last Admin: 06/23/22 20:52 Dose: 4 mg Documented By: BRADLY Non-Formulary Medication (Linaclotide [Linzess]) 145 mcg PO DAILY [facility] Nystatin (Nystatin Oral Susp 500,000 Unit/5 Ml Oral.Susp) 500,000 unit PO TID [facility]; Protocol Last Admin: 06/25/22 08:12 Dose: 500,000 unit Documented By: DESIRE Omeprazole (Omeprazole 20 Mg Capsule.Dr) 20 mg PO DAILY@0630 [facility] Last Admin: 06/25/22 06:11 Dose: 20 mg Documented By: EMANUEL Ondansetron HCl (Ondansetron Hcl 4 Mg/2 Ml Vial) 4 mg IVPUSH Q8H PRN PRN Reason: Nausea and Vomiting Last Admin: 06/24/22 20:27 Dose: 4 mg Documented By: EMANUEL Pharmacy Consult (Consult Rx Perform Med Rec) 1 each MISCELLANE ONCE PRN PRN Reason: Consult order Sodium Chloride (0.9 % Sodium Chloride Flush 3 Ml Syringe) 3 ml IVFLUSH QSHIFT [facility] Last Admin: 06/25/22 07:09 Dose: Not Given Documented By: DESIRE Non-Admin Reason: IV Running Labs 06/24/22 08:35 06/22/22 08:33 Assessment and Plan (1) Diverticulitis: Status: Acute Plan 57/F with acute, severe diverticulitis Plan: Severe recurent sigmoid diverticulitis, improving -IV Abx (Flagyl, levaquin D 4) -surgery following and doesn't improve will need colectomy -GI will consider colonoscopy in the future -IV morphine for pain -Start clear liquid HTN-continue Lisiopril HLD--Lipitor DVT--Prophylaxis, Lovenox need for inpatient...admission for severe diverticulitis that need iv antibiotics Time Spent With Patient Time: Total time managing care of this patient today ____ minutes. Quality Stroke Does the patient have a stroke diagnosis?: No VTE Prior VTE?: No VTE Risk Level:: Medical - moderate - high VTE Device Contraindication: Patient Refused VTE Drug Contraindication: N/A - Med Ordered
[2022-06-25] MEDS: ondansetron HCL 4 MG/2 ML VIAL IVPUSH (12:31)
[2022-06-25] MEDS: levoFLOXacin/D5W 750 MG/150 ML PIGGYBACK 100 MG IV (13:31)
[2022-06-25] MEDS: 0.9 % Sodium Chloride Flush 3 ML SYRINGE IVFLUSH (15:06)
[2022-06-25 15:15] VITALS: BP 139/80; PULSE 78; RESP 14; TEMP 36.1; O2SAT 94
[2022-06-25] MEDS: Enoxaparin Sodium 40 MG/0.4 ML SYRINGE SUBCUT (15:36)
[2022-06-25 19:32] VITALS: BP 151/79; PULSE 73; RESP 16; TEMP 36.2; O2SAT 95
[2022-06-25] MEDS: Atorvastatin Calcium 10 MG TABLET PO (20:23)
[2022-06-26] MEDS: polyethylene glycoL 3350 17 GM POWD.PACK PO (00:24)
--- NOTE | 2022-06-26 00:30 | PC.NURSE ---
pt told me promethazine knocked her out, not that great feeling, my heart was jumping, couldn't get up, dizziness, and slept all evening. she did not want this medication again.
[2022-06-26 03:19] VITALS: BP 143/75; PULSE 74; RESP 16; O2SAT 97
[2022-06-26] MEDS: Lactated Ringers 1,000 ML 125 ML IVCONT ×3 (06:05→23:52)
[2022-06-26] MEDS: metroNIDAZOLE/NS 500 MG/100 ML PIGGYBACK 100 MG IV ×3 (06:05→22:46)
[2022-06-26] MEDS: Omeprazole 20 MG CAPSULE.DR PO (06:05)
[2022-06-26 08:00] VITALS: BP 158/93; PULSE 70; RESP 18; TEMP 36.7; O2SAT 96
[2022-06-26 08:16] LABS: Hematocrit 33.3 % (37.0-47.0); Hemoglobin 10.8 g/dl (12.0-16.0); Mean Corpuscular HGB Conc 32.4 g/dl (31.0-35.0); Mean Corpuscular Hemoglobin 27.6 pg (27.0-33.0); Mean Corpuscular Volume 84.9 fL (80.0-98.0); Mean Platelet Volume 8.4 fL (9.4-12.3); Platelet Count 382 X10*3/uL (160-400); Red Blood Count 3.92 X10*6/uL (4.20-5.50); Red Cell Distribution Width 12.5 % (11.0-16.0); White Blood Count 6.6 X10*3/uL (4.8-10.8)
--- NOTE | 2022-06-26 08:29 | P.PNIM_ITS ---
Subjective Subjective Date of Service: 06/26/22 Interval History: f/u on acute diverticulitis Has mild pain, could not yesterday because of nausea nausea is much better today Physical Exam Vital Signs: Vital Signs: Last Vital Signs Temp 97.2 F 06/25/22 19:32 Pulse 74 06/26/22 03:19 Resp 16 06/26/22 03:19 BP 143/75 H 06/26/22 03:19 Pulse Ox 97 06/26/22 03:19 O2 Del Method 06/26/22 03:19 BMI result Body Mass Index 32.1 Const: Other: General: AO X 3, no acute distress Resp: CTA bilateral CVS: S1,S2,RRR GI: +BS, NT, Skin: No rash Neuro: motor grossly intact Psych: appropriate affect Objective Data Active Medications Acetaminophen (Acetaminophen 325 Mg Tablet) 650 mg PO Q6H PRN PRN Reason: Pain, Mild (Pain Scale 1-3) Last Admin: 06/25/22 03:01 Dose: 650 mg Documented By: EAMNUEL Atorvastatin Calcium (Atorvastatin Calcium 10 Mg Tablet) 10 mg PO BEDTIME [facility] Last Admin: 06/25/22 20:23 Dose: 10 mg Documented By: REBECCA Calcium Polycarbophil (Calcium Polycarbophil Tablet) 1 tab PO DAILY [facility] Last Admin: 06/25/22 08:12 Dose: 1 tab Documented By: DESIRE Dicyclomine HCl (Dicyclomine Hcl 10 Mg Capsule) 10 mg PO BID PRN PRN Reason: abdominal pain Enoxaparin Sodium (Enoxaparin Sodium 40 Mg/0.4 Ml Syringe) 40 mg SUBCUT Q24H [facility] Last Admin: 06/25/22 15:36 Dose: 40 mg Documented By: DESIRE Hydrochlorothiazide (Hydrochlorothiazide 12.5 Mg Tablet) 12.5 mg PO DAILY [facility]; Protocol Last Admin: 06/25/22 08:12 Dose: 12.5 mg Documented By: DESIRE Metronidazole (Flagyl) 500 mg in 100 mls @ 100 mls/hr IV Q8H [facility] Last Infusion: 06/26/22 08:03 Dose: 0 mls/hr Documented By: ADRIANA Levofloxacin (Levaquin) 750 mg in 150 mls @ 100 mls/hr IV Q24H [facility] Last Infusion: 06/25/22 15:10 Dose: 0 mls/hr Documented By: DESIRE Lactated Ringer's (Lr) 1,000 mls @ 125 mls/hr IVCONT .Q8H [facility] Last Admin: 06/26/22 06:05 Dose: 125 mls/hr Documented By: REBECCA Promethazine HCl 12.5 mg/ (Sodium Chloride) 50.5 mls @ 202 mls/hr IV Q6H PRN PRN Reason: Nausea and Vomiting Last Infusion: 06/25/22 17:41 Dose: 0 mls/hr Documented By: DESIRE Lisinopril (Lisinopril 5 Mg Tablet) 5 mg PO DAILY [facility]; Protocol Last Admin: 06/25/22 08:12 Dose: 5 mg Documented By: DESIRE Melatonin (Melatonin 3 Mg Tablet) 6 mg PO BEDTIME PRN PRN Reason: Insomnia Morphine Sulfate (Morphine Sulfate 4 Mg/Ml Cartridge) 4 mg IVPUSH Q4H PRN; Protocol PRN Reason: Pain, Severe (Pain Scale 7-10) Last Admin: 06/23/22 20:52 Dose: 4 mg Documented By: BRADLY Non-Formulary Medication (Linaclotide [Linzess]) 145 mcg PO DAILY [facility] Nystatin (Nystatin Oral Susp 500,000 Unit/5 Ml Oral.Susp) 500,000 unit PO TID [facility]; Protocol Last Admin: 06/25/22 20:23 Dose: 500,000 unit Documented By: REBECCA Omeprazole (Omeprazole 20 Mg Capsule.Dr) 20 mg PO DAILY@0630 [facility] Last Admin: 06/26/22 06:05 Dose: 20 mg Documented By: REBECCA Ondansetron HCl (Ondansetron Hcl 4 Mg/2 Ml Vial) 4 mg IVPUSH Q8H PRN PRN Reason: Nausea and Vomiting Last Admin: 06/25/22 12:31 Dose: 4 mg Documented By: DESIRE Pharmacy Consult (Consult Rx Perform Med Rec) 1 each MISCELLANE ONCE PRN PRN Reason: Consult order Sodium Chloride (0.9 % Sodium Chloride Flush 3 Ml Syringe) 3 ml IVFLUSH QSHIFT [facility] Last Admin: 06/26/22 08:03 Dose: Not Given Documented By: ADRIANA Non-Admin Reason: IV Running Labs 06/26/22 07:47 06/22/22 08:33 Labs: Laboratory Results - last 24 hr 06/26/22 07:47 MCV 84.9 MCH 27.6 MCHC 32.4 RDW 12.5 Plt Count 382 MPV 8.4 L Absolute Nucleated RBC 0.000 Nucleated RBC % (auto) 0.0 Assessment and Plan (1) Diverticulitis: Status: Acute Plan 57/F with acute, severe diverticulitis Plan: Severe recurent sigmoid diverticulitis, improved, WBC normal, pain much better -IV Abx (Flagyl, levaquin D 5) -surgery following and doesn't improve will need colectomy -GI will consider colonoscopy in the future -IV morphine for pain -liquid diet and advanced as tolerated. HTN-continue Lisiopril HLD--Lipitor DVT--Prophylaxis, Lovenox need for inpatient...admission for severe diverticulitis that need iv antibiotics Time Spent With Patient Time: Total time managing care of this patient today ____ minutes. Quality Stroke Does the patient have a stroke diagnosis?: No VTE Prior VTE?: No VTE Risk Level:: Medical - moderate - high VTE Device Contraindication: Patient Refused VTE Drug Contraindication: N/A - Med Ordered
[2022-06-26 08:33] LABS: Anion Gap 14 (12-20); Blood Urea Nitrogen 8 mg/dL (9-16); Calcium 9.2 mg/dL (8.4-10.2); Carbon Dioxide 29 mmol/L (22-29); Chloride 103 mmol/L (96-108); Creatinine Clr Calc Pharmacy 87.9; Estimated Glomerular Filt Rate > 60; Glucose Random 107 mg/dL (60-115); Potassium 3.8 mmol/L (3.3-5.1); Sodium 142 mmol/L (135-145)
[2022-06-26] MEDS: ondansetron HCL 4 MG/2 ML VIAL IVPUSH ×2 (09:14→17:18)
[2022-06-26] MEDS: Nystatin Oral Susp 500,000 UNIT/5 ML ORAL.SUSP 500000 UNIT PO ×3 (09:14→20:30)
[2022-06-26] MEDS: calcium polycarbophiL TABLET 1 TAB PO (09:14)
[2022-06-26] MEDS: lisinopriL 5 MG TABLET PO (09:14)
[2022-06-26] MEDS: hydroCHLOROthiazide 12.5 MG TABLET PO (09:14)
--- NOTE | 2022-06-26 10:01 | PM.PNGS ---
Subjective Subjective Date of Service: 06/26/22 Patient reports: still having pain Interval history: The patient is seen in coverage for Dr. Ash. The patient's is at the bedside Patient reports ongoing left lower quadrant pain and minimal flatus. She denies any bowel movements. She otherwise denies any new complaints such as chest pain, difficulty breathing or shortness of breath. She notes that this is her 2nd bout of sigmoid diverticulitis requiring hospitalization. Physical Exam Vital Signs: Vital Signs: Last Vital Signs Temp 98.0 F 06/26/22 08:00 Pulse 70 06/26/22 08:00 Resp 18 06/26/22 08:00 BP 158/93 H 06/26/22 08:00 Pulse Ox 96 06/26/22 08:00 O2 Del Method 06/26/22 08:00 BMI result Body Mass Index 32.1 On exam she is nontoxic Sclera anicteric She is in no respiratory distress Abdomen is obese but soft. Local left lower quadrant abdominal pain is present. No diffuse peritoneal sign is present as evidence by percussive exam Objective Data Active Medications Acetaminophen (Acetaminophen 325 Mg Tablet) 650 mg PO Q6H PRN PRN Reason: Pain, Mild (Pain Scale 1-3) Last Admin: 06/25/22 03:01 Dose: 650 mg Documented By: EMANUEL Atorvastatin Calcium (Atorvastatin Calcium 10 Mg Tablet) 10 mg PO BEDTIME [facility] Last Admin: 06/25/22 20:23 Dose: 10 mg Documented By: REBECCA Calcium Polycarbophil (Calcium Polycarbophil Tablet) 1 tab PO DAILY [facility] Last Admin: 06/26/22 09:14 Dose: 1 tab Documented By: ADRIANA Dicyclomine HCl (Dicyclomine Hcl 10 Mg Capsule) 10 mg PO BID PRN PRN Reason: abdominal pain Enoxaparin Sodium (Enoxaparin Sodium 40 Mg/0.4 Ml Syringe) 40 mg SUBCUT Q24H [facility] Last Admin: 06/25/22 15:36 Dose: 40 mg Documented By: DESIRE Hydrochlorothiazide (Hydrochlorothiazide 12.5 Mg Tablet) 12.5 mg PO DAILY [facility]; Protocol Last Admin: 06/26/22 09:14 Dose: 12.5 mg Documented By: ADRIANA Metronidazole (Flagyl) 500 mg in 100 mls @ 100 mls/hr IV Q8H [facility] Last Infusion: 06/26/22 08:03 Dose: 0 mls/hr Documented By: ADRIANA Levofloxacin (Levaquin) 750 mg in 150 mls @ 100 mls/hr IV Q24H [facility] Last Infusion: 06/25/22 15:10 Dose: 0 mls/hr Documented By: DESIRE Lactated Ringer's (Lr) 1,000 mls @ 125 mls/hr IVCONT .Q8H [facility] Last Admin: 06/26/22 06:05 Dose: 125 mls/hr Documented By: REBECCA Promethazine HCl 12.5 mg/ (Sodium Chloride) 50.5 mls @ 202 mls/hr IV Q6H PRN PRN Reason: Nausea and Vomiting Last Infusion: 06/25/22 17:41 Dose: 0 mls/hr Documented By: DESIRE Lisinopril (Lisinopril 5 Mg Tablet) 5 mg PO DAILY [facility]; Protocol Last Admin: 06/26/22 09:14 Dose: 5 mg Documented By: ADRIANA Melatonin (Melatonin 3 Mg Tablet) 6 mg PO BEDTIME PRN PRN Reason: Insomnia Morphine Sulfate (Morphine Sulfate 4 Mg/Ml Cartridge) 4 mg IVPUSH Q4H PRN; Protocol PRN Reason: Pain, Severe (Pain Scale 7-10) Last Admin: 06/23/22 20:52 Dose: 4 mg Documented By: BRADLY Non-Formulary Medication (Linaclotide [Linzess]) 145 mcg PO DAILY [facility] Nystatin (Nystatin Oral Susp 500,000 Unit/5 Ml Oral.Susp) 500,000 unit PO TID [facility]; Protocol Last Admin: 06/26/22 09:14 Dose: 500,000 unit Documented By: ADRIANA Omeprazole (Omeprazole 20 Mg Capsule.Dr) 20 mg PO DAILY@0630 [facility] Last Admin: 06/26/22 06:05 Dose: 20 mg Documented By: REBECCA Ondansetron HCl (Ondansetron Hcl 4 Mg/2 Ml Vial) 4 mg IVPUSH Q8H PRN PRN Reason: Nausea and Vomiting Last Admin: 06/26/22 09:14 Dose: 4 mg Documented By: ADRIANA Pharmacy Consult (Consult Rx Perform Med Rec) 1 each MISCELLANE ONCE PRN PRN Reason: Consult order Sodium Chloride (0.9 % Sodium Chloride Flush 3 Ml Syringe) 3 ml IVFLUSH QSHIFT [facility] Last Admin: 06/26/22 08:03 Dose: Not Given Documented By: ADRIANA Non-Admin Reason: IV Running Labs 06/26/22 07:47 06/26/22 07:48 Labs: Laboratory Results - last 24 hr 06/26/22 06/26/22 07:47 07:48 MCV 84.9 MCH 27.6 MCHC 32.4 RDW 12.5 Plt Count 382 MPV 8.4 L Absolute Nucleated RBC 0.000 Nucleated RBC % (auto) 0.0 Anion Gap 14 Estim Creat Clear Calc 87.9 Estimated GFR > 60 Random Glucose 107 Calcium 9.2 D Procedures Date of Service Date of Service: 06/26/22 Progress Note: A&P Assessment and plan (1) Sigmoid diverticulitis: Status: Acute (2) Diverticulitis large intestine w/o perforation or abscess w/o bleeding: Status: Acute (3) Hypertension: Status: Acute Assessment and Plan: Recommend going slow with diet given the abdominal pain. Patient is instructed to primarily use clear liquids for comfort until she starts passing more gas and having less pain. NPO if she becomes bloated or distended or has nausea or vomiting. Will reassess tomorrow. (4) Obesity (BMI 30-39.9): Status: Acute Time Spent With Patient Time: Total time managing care of this patient today ____ minutes. Quality Stroke Does the patient have a stroke diagnosis?: No VTE Prior VTE?: No VTE Risk Level:: Medical - moderate - high VTE Device Contraindication: Patient Refused VTE Drug Contraindication: N/A - Med Ordered
[2022-06-26] MEDS: levoFLOXacin/D5W 750 MG/150 ML PIGGYBACK 100 MG IV (14:03)
[2022-06-26 15:22] VITALS: BP 148/88; PULSE 72; RESP 17; TEMP 36.2; O2SAT 94
[2022-06-26] MEDS: Enoxaparin Sodium 40 MG/0.4 ML SYRINGE SUBCUT (15:34)
[2022-06-26 19:07] VITALS: BP 162/100; PULSE 73; RESP 16; TEMP 36.3; O2SAT 96
[2022-06-26] MEDS: Atorvastatin Calcium 10 MG TABLET PO (20:30)
[2022-06-27 03:54] VITALS: BP 155/86; PULSE 82; RESP 16; TEMP 36.7; O2SAT 94
[2022-06-27] MEDS: Omeprazole 20 MG CAPSULE.DR PO (05:06)
[2022-06-27] MEDS: metroNIDAZOLE/NS 500 MG/100 ML PIGGYBACK 100 MG IV ×3 (06:04→22:06)
[2022-06-27 08:00] VITALS: BP 167/89; PULSE 73; RESP 18; TEMP 36.7; O2SAT 95
--- NOTE | 2022-06-27 08:09 | P.PNIM_ITS ---
Subjective Subjective Date of Service: 06/27/22 Interval History: f/u on acute diverticulitis No pain this morning, but did not eat much of anything has had bowel movement Review of Systems abd pain no n/v Physical Exam Vital Signs: Vital Signs: Last Vital Signs Temp 98.0 F 06/27/22 03:54 Pulse 82 06/27/22 03:54 Resp 16 06/27/22 03:54 BP 155/86 H 06/27/22 03:54 Pulse Ox 94 06/27/22 03:54 O2 Del Method 06/27/22 03:54 BMI result Body Mass Index 32.1 Const: Other: General: AO X 3, no acute distress Resp: CTA bilateral CVS: S1,S2,RRR GI: +BS, NT, Skin: No rash Neuro: motor grossly intact Psych: appropriate affect Objective Data Active Medications Acetaminophen (Acetaminophen 325 Mg Tablet) 650 mg PO Q6H PRN PRN Reason: Pain, Mild (Pain Scale 1-3) Last Admin: 06/25/22 03:01 Dose: 650 mg Documented By: EMANUEL Atorvastatin Calcium (Atorvastatin Calcium 10 Mg Tablet) 10 mg PO BEDTIME [facility] Last Admin: 06/26/22 20:30 Dose: 10 mg Documented By: REBECCA Calcium Polycarbophil (Calcium Polycarbophil Tablet) 1 tab PO DAILY [facility] Last Admin: 06/26/22 09:14 Dose: 1 tab Documented By: ADRIANA Dicyclomine HCl (Dicyclomine Hcl 10 Mg Capsule) 10 mg PO BID PRN PRN Reason: abdominal pain Enoxaparin Sodium (Enoxaparin Sodium 40 Mg/0.4 Ml Syringe) 40 mg SUBCUT Q24H [facility] Last Admin: 06/26/22 15:34 Dose: 40 mg Documented By: ADRIANA Hydrochlorothiazide (Hydrochlorothiazide 12.5 Mg Tablet) 12.5 mg PO DAILY [facility]; Protocol Last Admin: 06/26/22 09:14 Dose: 12.5 mg Documented By: ADRIANA Metronidazole (Flagyl) 500 mg in 100 mls @ 100 mls/hr IV Q8H [facility] Last Infusion: 06/27/22 07:50 Dose: 0 mls/hr Documented By: ADRIANA Levofloxacin (Levaquin) 750 mg in 150 mls @ 100 mls/hr IV Q24H [facility] Last Infusion: 06/26/22 15:39 Dose: 0 mls/hr Documented By: ADRIANA Promethazine HCl 12.5 mg/ (Sodium Chloride) 50.5 mls @ 202 mls/hr IV Q6H PRN PRN Reason: Nausea and Vomiting Last Infusion: 06/25/22 17:41 Dose: 0 mls/hr Documented By: DESIRE Lisinopril (Lisinopril 5 Mg Tablet) 5 mg PO DAILY [facility]; Protocol Last Admin: 06/26/22 09:14 Dose: 5 mg Documented By: ADRIANA Melatonin (Melatonin 3 Mg Tablet) 6 mg PO BEDTIME PRN PRN Reason: Insomnia Morphine Sulfate (Morphine Sulfate 4 Mg/Ml Cartridge) 4 mg IVPUSH Q4H PRN; Protocol PRN Reason: Pain, Severe (Pain Scale 7-10) Last Admin: 06/23/22 20:52 Dose: 4 mg Documented By: BRADLY Non-Formulary Medication (Linaclotide [Linzess]) 145 mcg PO DAILY [facility] Nystatin (Nystatin Oral Susp 500,000 Unit/5 Ml Oral.Susp) 500,000 unit PO TID [facility]; Protocol Last Admin: 06/26/22 20:30 Dose: 500,000 unit Documented By: REBECCA Omeprazole (Omeprazole 20 Mg Capsule.Dr) 20 mg PO DAILY@0630 [facility] Last Admin: 06/27/22 05:06 Dose: 20 mg Documented By: REBECCA Ondansetron HCl (Ondansetron Hcl 4 Mg/2 Ml Vial) 4 mg IVPUSH Q8H PRN PRN Reason: Nausea and Vomiting Last Admin: 06/26/22 17:18 Dose: 4 mg Documented By: ADRIANA Pharmacy Consult (Consult Rx Perform Med Rec) 1 each MISCELLANE ONCE PRN PRN Reason: Consult order Sodium Chloride (0.9 % Sodium Chloride Flush 3 Ml Syringe) 3 ml IVFLUSH QSHIFT [facility] Last Admin: 06/27/22 07:11 Dose: Not Given Documented By: ADRIANA Non-Admin Reason: IV Running Labs 06/26/22 07:47 06/26/22 07:48 Labs: Laboratory Results - last 24 hr 06/26/22 06/26/22 07:47 07:48 MCV 84.9 MCH 27.6 MCHC 32.4 RDW 12.5 Plt Count 382 MPV 8.4 L Absolute Nucleated RBC 0.000 Nucleated RBC % (auto) 0.0 Anion Gap 14 Estim Creat Clear Calc 87.9 Estimated GFR > 60 Random Glucose 107 Calcium 9.2 D Assessment and Plan (1) Diverticulitis: Status: Acute Plan 57/F with acute, severe diverticulitis Plan: Severe recurent sigmoid diverticulitis, improved, WBC normal, pain much better -IV Abx (Flagyl, levaquin D 6) -surgery following and doesn't improve will need colectomy -GI will consider colonoscopy in the future -IV morphine for pain -liquid diet and advanced as tolerated slowly -CT if worse HTN-continue Lisiopril HLD--Lipitor DVT--Prophylaxis, Lovenox need for inpatient...admission for severe diverticulitis that need iv antibiotics Time Spent With Patient Time: Total time managing care of this patient today ____ minutes. Quality Stroke Does the patient have a stroke diagnosis?: No VTE Prior VTE?: No VTE Risk Level:: Medical - moderate - high VTE Device Contraindication: Patient Refused VTE Drug Contraindication: N/A - Med Ordered
[2022-06-27] MEDS: calcium polycarbophiL TABLET 1 TAB PO (09:18)
[2022-06-27] MEDS: lisinopriL 5 MG TABLET PO (09:18)
[2022-06-27] MEDS: hydroCHLOROthiazide 12.5 MG TABLET PO (09:18)
[2022-06-27] MEDS: Nystatin Oral Susp 500,000 UNIT/5 ML ORAL.SUSP 500000 UNIT PO ×2 (09:18→22:05)
--- NOTE | 2022-06-27 10:54 | PM.PNGS ---
Subjective Subjective Date of Service: 06/27/22 Patient reports: no new complaints, feels better, flatus and bowel movement Interval history: The patient is seen in coverage for Dr. Ash She reports that she tolerated her liquid diet and states she is passing gas and had a bowel movement. She stated that she was told she needed another CT scan prior to discharge. Clinically, she is improved and I explained that a CT scan would not change the current plan today of advancing her diet and possible discharge later today or tomorrow. Physical Exam Vital Signs: Vital Signs: Last Vital Signs Temp 98.0 F 06/27/22 08:00 Pulse 73 06/27/22 08:00 Resp 18 06/27/22 08:00 BP 167/89 H 06/27/22 08:00 Pulse Ox 95 06/27/22 08:00 O2 Del Method 06/27/22 08:00 BMI result Body Mass Index 32.1 On exam she is nontoxic and in good spirits She has no overt respiratory distress Abdomen is obese and soft with no tenderness. No rebound, rigidity or guarding is present Objective Data Active Medications Acetaminophen (Acetaminophen 325 Mg Tablet) 650 mg PO Q6H PRN PRN Reason: Pain, Mild (Pain Scale 1-3) Last Admin: 06/25/22 03:01 Dose: 650 mg Documented By: EMANUEL Atorvastatin Calcium (Atorvastatin Calcium 10 Mg Tablet) 10 mg PO BEDTIME [facility] Last Admin: 06/26/22 20:30 Dose: 10 mg Documented By: REBECCA Calcium Polycarbophil (Calcium Polycarbophil Tablet) 1 tab PO DAILY [facility] Last Admin: 06/27/22 09:18 Dose: 1 tab Documented By: ADRIANA Dicyclomine HCl (Dicyclomine Hcl 10 Mg Capsule) 10 mg PO BID PRN PRN Reason: abdominal pain Enoxaparin Sodium (Enoxaparin Sodium 40 Mg/0.4 Ml Syringe) 40 mg SUBCUT Q24H [facility] Last Admin: 06/26/22 15:34 Dose: 40 mg Documented By: ADRIANA Hydrochlorothiazide (Hydrochlorothiazide 12.5 Mg Tablet) 12.5 mg PO DAILY [facility]; Protocol Last Admin: 06/27/22 09:18 Dose: 12.5 mg Documented By: ADRIANA Metronidazole (Flagyl) 500 mg in 100 mls @ 100 mls/hr IV Q8H [facility] Last Infusion: 06/27/22 07:50 Dose: 0 mls/hr Documented By: ADRIANA Levofloxacin (Levaquin) 750 mg in 150 mls @ 100 mls/hr IV Q24H [facility] Last Infusion: 06/26/22 15:39 Dose: 0 mls/hr Documented By: ADRIANA Promethazine HCl 12.5 mg/ (Sodium Chloride) 50.5 mls @ 202 mls/hr IV Q6H PRN PRN Reason: Nausea and Vomiting Last Infusion: 06/25/22 17:41 Dose: 0 mls/hr Documented By: DESIRE Lisinopril (Lisinopril 5 Mg Tablet) 5 mg PO DAILY [facility]; Protocol Last Admin: 06/27/22 09:18 Dose: 5 mg Documented By: ADRIANA Melatonin (Melatonin 3 Mg Tablet) 6 mg PO BEDTIME PRN PRN Reason: Insomnia Morphine Sulfate (Morphine Sulfate 4 Mg/Ml Cartridge) 4 mg IVPUSH Q4H PRN; Protocol PRN Reason: Pain, Severe (Pain Scale 7-10) Last Admin: 06/23/22 20:52 Dose: 4 mg Documented By: BRADLY Non-Formulary Medication (Linaclotide [Linzess]) 145 mcg PO DAILY [facility] Nystatin (Nystatin Oral Susp 500,000 Unit/5 Ml Oral.Susp) 500,000 unit PO TID [facility]; Protocol Last Admin: 06/27/22 09:18 Dose: 500,000 unit Documented By: ADRIANA Omeprazole (Omeprazole 20 Mg Capsule.) 20 mg PO DAILY@0630 [facility] Last Admin: 06/27/22 05:06 Dose: 20 mg Documented By: REBECCA Ondansetron HCl (Ondansetron Hcl 4 Mg/2 Ml Vial) 4 mg IVPUSH Q8H PRN PRN Reason: Nausea and Vomiting Last Admin: 06/26/22 17:18 Dose: 4 mg Documented By: ADRIANA Pharmacy Consult (Consult Rx Perform Med Rec) 1 each MISCELLANE ONCE PRN PRN Reason: Consult order Sodium Chloride (0.9 % Sodium Chloride Flush 3 Ml Syringe) 3 ml IVFLUSH QSHIFT [facility] Last Admin: 06/27/22 07:11 Dose: Not Given Documented By: ADRIANA Non-Admin Reason: IV Running Labs 06/26/22 07:47 06/26/22 07:48 Procedures Date of Service Date of Service: 06/27/22 Progress Note: A&P Assessment and plan (1) Sigmoid diverticulitis: Status: Acute (2) Diverticulitis large intestine w/o perforation or abscess w/o bleeding: Status: Acute (3) Hypertension: Status: Acute Plan I again reassured the patient she is making progress in that a CT scan is not require nor would it change the plan to advance her diet to either fulls or low residue with possible discharge later today or tomorrow on oral antibiotics. The importance of following up with Dr. Ash was also discussed. Patient's questions seemed to be satisfactorily answered. Dr. Ash will resume care on June 28 if the patient is still in the hospital. Time Spent With Patient Time: Total time managing care of this patient today ____ minutes. Quality Stroke Does the patient have a stroke diagnosis?: No VTE Prior VTE?: No VTE Risk Level:: Medical - moderate - high VTE Device Contraindication: Patient Refused VTE Drug Contraindication: N/A - Med Ordered
[2022-06-27] MEDS: levoFLOXacin/D5W 750 MG/150 ML PIGGYBACK 100 MG IV (14:02)
[2022-06-27] MEDS: ondansetron HCL 4 MG/2 ML VIAL IVPUSH (14:04)
[2022-06-27 15:36] VITALS: BP 163/97; PULSE 84; RESP 15; TEMP 36.3; O2SAT 95
[2022-06-27] MEDS: Enoxaparin Sodium 40 MG/0.4 ML SYRINGE SUBCUT (16:01)
[2022-06-27] MEDS: 0.9 % Sodium Chloride Flush 3 ML SYRINGE IVFLUSH ×2 (16:01→22:06)
[2022-06-27 19:08] VITALS: BP 157/86; PULSE 79; RESP 14; TEMP 36.4; O2SAT 93
[2022-06-27] MEDS: Atorvastatin Calcium 10 MG TABLET PO (22:05)
[2022-06-28 04:00] VITALS: BP 118/62; PULSE 72; RESP 16; TEMP 36.8; O2SAT 96
[2022-06-28] MEDS: Omeprazole 20 MG CAPSULE.DR PO (06:27)
[2022-06-28] MEDS: metroNIDAZOLE/NS 500 MG/100 ML PIGGYBACK 100 MG IV (06:27)
[2022-06-28 07:54] VITALS: BP 161/95; PULSE 73; RESP 18; TEMP 36.3; O2SAT 97
--- NOTE | 2022-06-28 08:27 | P.PNGS_ITS ---
Subjective Subjective Date of Service: 06/28/22 Interval history: Pain improving Feels well Tolerating diet - she says she still on liquids Has BMs and flatus Physical Exam Vital Signs: Vital Signs: Last Vital Signs Temp 97.4 F 06/28/22 07:54 Pulse 73 06/28/22 07:54 Resp 18 06/28/22 07:54 BP 161/95 H 06/28/22 07:54 Pulse Ox 97 06/28/22 07:54 O2 Del Method 06/28/22 07:54 BMI result Body Mass Index 32.1 Const: Other: Sitting on recliner General: comfortable and no acute distress Resp: Effort & Inspection: normal respiratory effort Cardio: Rate: regular rate GI: Palpation (GI): Soft to palpation, not firm, Tenderness to palpation present (GI) (Mild tenderness left lower quadrant), no guarding and not rigid Objective Data Active Medications Acetaminophen (Acetaminophen 325 Mg Tablet) 650 mg PO Q6H PRN PRN Reason: Pain, Mild (Pain Scale 1-3) Last Admin: 06/25/22 03:01 Dose: 650 mg Documented By: EMANUEL Atorvastatin Calcium (Atorvastatin Calcium 10 Mg Tablet) 10 mg PO BEDTIME [facility] Last Admin: 06/27/22 22:05 Dose: 10 mg Documented By: LYNDON Calcium Polycarbophil (Calcium Polycarbophil Tablet) 1 tab PO DAILY [facility] Last Admin: 06/27/22 09:18 Dose: 1 tab Documented By: ADRIANA Dicyclomine HCl (Dicyclomine Hcl 10 Mg Capsule) 10 mg PO BID PRN PRN Reason: abdominal pain Enoxaparin Sodium (Enoxaparin Sodium 40 Mg/0.4 Ml Syringe) 40 mg SUBCUT Q24H [facility] Last Admin: 06/27/22 16:01 Dose: 40 mg Documented By: ADRIANA Hydrochlorothiazide (Hydrochlorothiazide 12.5 Mg Tablet) 12.5 mg PO DAILY [facility]; Protocol Last Admin: 06/27/22 09:18 Dose: 12.5 mg Documented By: ADRIANA Metronidazole (Flagyl) 500 mg in 100 mls @ 100 mls/hr IV Q8H [facility] Last Admin: 06/28/22 06:27 Dose: 100 mls/hr Documented By: LYNDON Levofloxacin (Levaquin) 750 mg in 150 mls @ 100 mls/hr IV Q24H [facility] Last Infusion: 06/27/22 16:07 Dose: 0 mls/hr Documented By: ADRIANA Promethazine HCl 12.5 mg/ (Sodium Chloride) 50.5 mls @ 202 mls/hr IV Q6H PRN PRN Reason: Nausea and Vomiting Last Infusion: 06/25/22 17:41 Dose: 0 mls/hr Documented By: DESIRE Lisinopril (Lisinopril 5 Mg Tablet) 5 mg PO DAILY [facility]; Protocol Last Admin: 06/27/22 09:18 Dose: 5 mg Documented By: ADRIANA Melatonin (Melatonin 3 Mg Tablet) 6 mg PO BEDTIME PRN PRN Reason: Insomnia Morphine Sulfate (Morphine Sulfate 4 Mg/Ml Cartridge) 4 mg IVPUSH Q4H PRN; Protocol PRN Reason: Pain, Severe (Pain Scale 7-10) Last Admin: 06/23/22 20:52 Dose: 4 mg Documented By: BRADLY Non-Formulary Medication (Linaclotide [Linzess]) 145 mcg PO DAILY [facility] Nystatin (Nystatin Oral Susp 500,000 Unit/5 Ml Oral.Susp) 500,000 unit PO TID [facility]; Protocol Last Admin: 06/27/22 22:05 Dose: 500,000 unit Documented By: LYNDON Omeprazole (Omeprazole 20 Mg Capsule.Dr) 20 mg PO DAILY@0630 [facility] Last Admin: 06/28/22 06:27 Dose: 20 mg Documented By: LYNDON Ondansetron HCl (Ondansetron Hcl 4 Mg/2 Ml Vial) 4 mg IVPUSH Q8H PRN PRN Reason: Nausea and Vomiting Last Admin: 06/27/22 14:04 Dose: 4 mg Documented By: ADRIANA Pharmacy Consult (Consult Rx Perform Med Rec) 1 each MISCELLANE ONCE PRN PRN Reason: Consult order Sodium Chloride (0.9 % Sodium Chloride Flush 3 Ml Syringe) 3 ml IVFLUSH QSHIFT [facility] Last Admin: 06/27/22 22:06 Dose: 3 ml Documented By: LYNDON Labs 06/26/22 07:47 06/26/22 07:48 Procedures Date of Service Date of Service: 06/28/22 Progress Note: A&P Assessment and plan (1) Sigmoid diverticulitis: Status: Acute Assessment and Plan: Improving slowly Advance diet Looks well Needs outpatient colonoscopy down the line I explained to her risk of recurrence of diverticulitis Discussed with as well Time Spent With Patient Time: Total time managing care of this patient today ____ minutes. Quality Stroke Does the patient have a stroke diagnosis?: No VTE Prior VTE?: No VTE Risk Level:: Medical - moderate - high VTE Device Contraindication: Patient Refused VTE Drug Contraindication: N/A - Med Ordered
[2022-06-28] MEDS: lisinopriL 5 MG TABLET PO (08:54)
[2022-06-28] MEDS: Nystatin Oral Susp 500,000 UNIT/5 ML ORAL.SUSP 500000 UNIT PO (08:54)
[2022-06-28] MEDS: calcium polycarbophiL TABLET 1 TAB PO (08:54)
[2022-06-28] MEDS: 0.9 % Sodium Chloride Flush 3 ML SYRINGE IVFLUSH (08:54)
[2022-06-28] MEDS: hydroCHLOROthiazide 12.5 MG TABLET PO (08:54)
--- NOTE | 2022-06-28 09:23 | PM.DS ---
DS: Providers Provider Date of Service: 06/28/22 Date of admission: 06/22/22 15:44 Primary care physician: Isaac Field MD Consults: 06/23/22 09:51 Consult to General Surgery Routine Consulting Provider: Piotr Ash Reason for consultation: severe recurrent diverticulitis Has provider been notified: No 06/23/22 09:52 Consult to Gastroenterology Routine Consulting Provider: Flavio Hawkins Reason for consultation: recurrent diverticulitis Has provider been notified: No DS: Diagnosis Discharge Diagnosis (1) Sigmoid diverticulitis: Status: Acute DS: Summary Hospital Course Hospital Course: HPI from admission 57 year old female with multiple issues as listed below? and including diverticulitis, last episode in 01/2022 here with abdominal pain. She reports left lower quadrant abdominal pain onset several days ago, associated with fever, no diarrhea, no hematochezia. She reports similar episodes last january. CT scan of abdomen and pelvis shows the : Severe wall thickening of the sigmoid colon with pericolonic fat stranding and free fluid within a background of diverticulosis, most suggestive of acute diverticulitis. No free air or drainable collection. 2.? Diffuse urinary bladder wall thickening with perivesical fat stranding, likely reactive. There is no air in the lumen of the urinary bladder. Recommend clinical correlation. 3.? Prominent retroperitoneal and pelvic lymph nodes are likely reactive in nature. She's started of IV Levaquin and Flagyl for diverticulitis Hospital course: Due to the severe nature of the acute diverticulitis and is recurrent. Patient was admitted for IV antibiotics (Levaquin and Flagyl) she was NPO for at least 3 days and hydrated with IV fluid, IV morphine for pain once her symptoms improved significantly her diet was advanced to liquid diet that has since been advanced to bland diet which she is tolerating her pain has completely subsided she was evaluated by General surgery Dr. Ash will follow her on outpatient basis and may need colectomy in the future. She was also evaluated by Dr. Hawkins (freelance operator) and he will follow-up on outpatient basis for a repeat colonoscopy. Time Spent with Patient Time attestation: Total time managing care of this patient today ____ minutes. Discharge coordination time: Greater than 30 minutes Quality: Safe Use of Opioids Does Pt have an Active Cancer Diagnosis on the Problem List?: No Quality: Stroke Does the patient have a stroke diagnosis?: No Physical Exam Vital Signs: Vital Signs: Last Vital Signs Temp 97.4 F 06/28/22 07:54 Pulse 73 06/28/22 07:54 Resp 18 06/28/22 07:54 BP 161/95 H 06/28/22 07:54 Pulse Ox 97 06/28/22 07:54 O2 Del Method 06/28/22 07:54 BMI result Body Mass Index 32.1 Discharge Plan Discharge Anticipated Discharge Date/Time: 06/28/22 09:01 Patient Disposition: Home, Self-Care Discharge Diagnosis: Acute diverticulitis Referrals: Flavio Hawkins MD [Physician] - 2 Weeks (for colonoscopy) Piotr Ash MD [Physician] - 2 Weeks Po,Isaac Sequeira MD [Primary Care Provider] - 1 Week Discharge Medications: New metronidazole 500 mg tablet 500 mg PO BID 3 Days Qty: 6 0RF levofloxacin 500 mg tablet 500 mg PO DAILY 3 Days Qty: 3 0RF Continued lisinopril 5 mg tablet 5 mg PO DAILY Qty: 90 2RF simvastatin 10 mg tablet 1 tab PO BEDTIME [facility] Therapy (m-cellulose) 500 mg tablet 1 tab PO DAILY dicyclomine 10 mg capsule 1 cap PO BID PRN (Reason: abdominal pain) pantoprazole 40 mg tablet,delayed release (DR/EC) 40 mg PO DAILY@0630 hydrochlorothiazide 12.5 mg tablet 12.5 mg PO DAILY 90 Days Qty: 90 1RF nystatin 100,000 unit/mL suspension 5 ml PO TID 7 Days Qty: 105 0RF Rx Instructions: swish and swallow Linzess 145 mcg capsule 145 mcg PO DAILY Qty: 90 2RF Discharge Orders: Discharge Order (Routine); Ordered 06/28/22 Ordered By: Giovanni Lopez Diet: Advance to usual diet Activity on Discharge: As tolerated Stand Alone Forms: Patient Portal Discharge page Care Plan Goals: Full recovery from diverticulitis Health Concerns: Full recovery from or diverticulitis Plan of Treatment: Take Jazzmine and the Levaqkoki as directed and follow up with Dr. Ash on outpatient basis. Follow up with Dr. Hawkins for colonoscopy Assessment: As above Discharge Date/Time: 06/28/22 14:14
--- NOTE | 2022-06-28 11:06 | MHC.CM.PN ---
PER HOSPITALIST PT WILL BE CLEARED FOR D/C LATER TODAY IF TOLERATING REGULAR DIET. PLAN CONT'S TO BE HOME NO SERVICES W/ FOR TRANSPORT.
== END 2022-06-28 14:14 | disposition home or self-care (01) | DRG 244 ==
LOC: HO.ED 09:07 → HO.EDOVER 15:52 → HO.S3 18:44
PROVIDERS: Nurse Practitioner Family; Admitting Provider Internal Medicine; Emergency Provider Emergency Medicine; PCP Internal Medicine; Visit Provider Internal Medicine
DX: K57.32 Diverticulitis of large intestine without perforation or abscess without bleeding (principal); I10 Essential (primary) hypertension; E78.00 Pure hypercholesterolemia, unspecified; E66.9 Obesity, unspecified; Z68.32 Body mass index [BMI] 32.0-32.9, adult; Z20.822 Contact with and (suspected) exposure to COVID-19; Z79.899 Other long term (current) drug therapy
CPT/HCPCS: 36415; 74177; 80048; 80076; 81001; 83690; 85025; 85027; 87635; 96361; 96365; 96375; 96376; 99285; J1650; J1956; J2270; J2405; J2550; J2765; Q9967

== ENCOUNTER → 2022-07-22 14:16 | Outpatient (BNVA) | payer BC, SELFPAY | PROVIDERS: PCP Internal Medicine; Referring Provider Nurse Practitioner Acute Care; Visit Provider Surgery | DX: Z13.89 Encounter for screening for other disorder (principal) ==

== ENCOUNTER → 2022-08-20 14:55 | Outpatient (BNVA) | payer BC, SELFPAY | PROVIDERS: PCP Internal Medicine; Visit Provider Nurse Practitioner Family | DX: Z13.89 Encounter for screening for other disorder (principal) ==

== ENCOUNTER 2022-09-02 09:55 | Day surgery (SDC) | payer BC, SELFPAY ==
[2022-08-31 14:27] VITALS: BMI 31.1
--- NOTE | 2022-09-01 13:04 | HO.ANESPROP2 ---
Documented by User: Liza Moore NP 09/01/22 13:12 HPI - Anesthesia Eval Consult details Narrative: 57yo F for Colonoscopy PMFSH Active Problems Active Problems: All Active Problems (Updated 07/06/22 @ 00:02 by Ramon Hawkins) Hospital discharge follow-up (Acute) Sigmoid diverticulitis (Acute) Hypokalemia (Acute) Thrush (Acute) Annual physical exam (Acute) Diverticulitis (Acute) Diverticular disease (Acute) Tongue burning sensation (Acute) Tongue abnormality (Acute) Shoulder pain, right (Acute) Constipation (Acute) Vitamin D deficiency (Acute) Plantar fasciitis of right foot (Acute) COVID-19 (Acute) Impaired glucose tolerance (Acute) Hair loss (Acute) Epigastric abdominal pain (Acute) Gastric erosions (Acute) Acute allergic reaction (Acute) History of renal calculi (Acute) Hypercholesterolemia (Acute) GERD (gastroesophageal reflux disease) (Acute) Past Medical History Medical History Acute allergic reaction Anemia Diverticulitis Diverticulitis large intestine w/o perforation or abscess w/o bleeding Fatty liver GERD (gastroesophageal reflux disease) History of renal calculi Hypercholesterolemia Hypertension Irritable bowel syndrome Obesity (BMI 30-39.9) Family History Family History Father Brain tumor Mother Hypertension CVD (cardiovascular disease) Family history of problems with anesthesia: No Surgical History Surgical History (Updated 08/20/22 @ 15:34 by Mary Carmen Barahona [facility]) H/O tubal ligation History of abdominal hysterectomy History of esophagogastroduodenoscopy (EGD) History of lithotripsy Hx of appendectomy Hx of arthroscopy of left knee Hx of arthroscopy of right knee Hx of colonoscopy History of Problems with Anesthesia: No Social History Social History Household Members: Spouse Housing: House Do you presently have visiting nurse or other home services: No Alcohol intake: never Patient Tobacco Use Status: Never used Tobacco e-Cigarette/Vaping Use: Never Used Second Hand Smoke Exposure: No Are you DNR?: No Advance Directives: No Advance Directives Information Provided: Yes service: No Current occupational status: employed Cognitive needs: No Hearing needs: No Vision needs: Yes Meds Allergies Allergy/AdvReac Type Severity Reaction Status Date / Time No Known Allergies [NKA] Allergy Mild NOT Verified 08/20/22 15:04 APPLICABLE Home Medications Medication Instructions Recorded Confirmed Last Taken Type pantoprazole 40 mg tablet,delayed 40 mg PO DAILY@0630 06/22/22 06/22/22 09/02/22 History release simvastatin 10 mg tablet 1 tab PO BEDTIME 06/22/22 06/22/22 09/02/22 History Exam Exam Date and Time: September 01, 2022 1304 Height,Weight and Vital Signs: Height 5 ft 2 in Weight 77.196 kg Pertinent Lab Results Pertinent Lab Results: Laboratory Tests 06/26/22 06/26/22 07:47 07:48 WBC 6.6 Hgb 10.8 L Hct 33.3 L Plt Count 382 Sodium 142 Potassium 3.8 Chloride 103 Carbon Dioxide 29 BUN 8 L Creatinine 0.69 Assessment and Plan Assessment Anesthesia Assessment: Chart Reviewed Final Anesthetic Review Family History of Problems with Anesthesia: No History of Problems with Anesthesia: No Documented by User: Emma Cabral MD 09/02/22 11:39 [facility] Past Medical History Medical History Acute allergic reaction Anemia Diverticulitis Diverticulitis large intestine w/o perforation or abscess w/o bleeding Fatty liver GERD (gastroesophageal reflux disease) History of renal calculi Hypercholesterolemia Hypertension Irritable bowel syndrome Obesity (BMI 30-39.9) Family History Family History Father Brain tumor Mother Hypertension CVD (cardiovascular disease) Surgical History Surgical History (Updated 08/20/22 @ 15:34 by Mary Carmen Barahona [facility]) H/O tubal ligation History of abdominal hysterectomy History of esophagogastroduodenoscopy (EGD) History of lithotripsy Hx of appendectomy Hx of arthroscopy of left knee Hx of arthroscopy of right knee Hx of colonoscopy Social History Social History Household Members: Spouse Housing: House Do you presently have visiting nurse or other home services: No Alcohol intake: never Patient Tobacco Use Status: Never used Tobacco e-Cigarette/Vaping Use: Never Used Second Hand Smoke Exposure: No Are you DNR?: No Advance Directives: No Advance Directives Information Provided: Yes service: No Current occupational status: employed Cognitive needs: No Hearing needs: No Vision needs: Yes Meds Allergies Allergy/AdvReac Type Severity Reaction Status Date / Time No Known Allergies [NKA] Allergy Mild NOT Verified 08/20/22 15:04 APPLICABLE Home Medications Medication Instructions Recorded Confirmed Last Taken Type pantoprazole 40 mg tablet,delayed 40 mg PO DAILY@0630 06/22/22 06/22/22 09/02/22 History release simvastatin 10 mg tablet 1 tab PO BEDTIME 06/22/22 06/22/22 09/02/22 History Exam Airway Mallampati Class: II TM Dist: >3cm Neck ROM: Full Heart: rrr Lungs: cta Assessment and Plan Assessment Anesthesia Assessment: Anesthesia Plan Discussed Final Anesthetic Review NPO: Yes ASA Class: II Final Preanesthetic Review: No Changes in Pt Med Stat, Meds/Allgs Chart Reviewed and Consent Obtained/Reviewed Patient Risk: Intermediate Procedure Risk: Intermediate Anesthetic Plan Anesthetic Plan: MAC: Disposition: Standard PACU
[2022-09-02 10:41] VITALS: BP 136/94; PULSE 73; RESP 20; TEMP 36.3; O2SAT 98
[2022-09-02] MEDS: Lactated Ringers 1,000 ML 100 ML IVCONT (10:58)
--- NOTE | 2022-09-02 11:57 | P.OP_ITS ---
Operative Note Operative Note Date of Service: 09/02/22 Narrative: Operative Information Procedure Description: Colonoscopy Indication: hx of diverticulitis, Anesthesia: MAC COLONOSCOPY Instrument: Olympus variable stiffness pediatric scope 190L Colonoscopy Monitoring: Vital signs and clinical assessment, continuous EKG monitoring, Pulse oximetry, Carbon Dioxide monitoring and blood pressure monitoring were done throughout the procedure. Colon withdrawal time was 12 minutes. Procedure: The patient was placed in the left lateral decubitis position and pre-procedure medications were administered. After a digital rectal examination of the ano-rectum, the video colonoscope was inserted into the rectum and advanced through the colon to the cecum/TI. The colonoscope was slowly withdrawn in a retrograde panoramic fashion and the colon mucosa was carefully examined including a retroflexed view of the rectum. Findings and interventions are described below. Procedure Difficulty: moderate due to tight sigmoid colon Findings: Terminal Ileum- normal, the ileocecal valve had a bulbous appearance, most likely unerlying lipoma or prolapsed part of the valve, bx were taken Cecum:normal Ascending Colon: normal Transverse Colon -normal Descending Colon:normal Sigmoid Colon: severe diverticulosis with luminal narrowing and mucosal hypertrophy Rectum: Retroflexion with small internal hemorrhoids, grade I Anorectum - normal Colon preparation: [place] Bowel Preparation Scale Right colon; 2 Transverse colon: 2 Left colon; 2 (0 = Unprepared colon segment with mucosa not seen due to solid stool that cannot be cleared. 1 = Portion of mucosa of the colon segment seen, but other areas of the colon segment not well seen due to staining, residual stool and/or opaque liquid. 2 = Minor amount of residual staining, small fragments of stool and/or opaque liquid, but mucosa of colon segment seen well. 3 = Entire mucosa of colon segment seen well with no residual staining, small fragments of stool or opaque liquid) Impression and Post Procedure Diagnosis: internal hemorrhoids diverticular disease Plan: High fiber diet leaflet Avoid straining at stool, epsom salts and sitz bath, anusol supps or cream Repeat Colonoscopy in 10 years or earlier if clinically indicated Above findings were reviewed with the patient and relevant handouts were provided if indicated.
--- NOTE | 2022-09-02 11:57 | MHC.SHP ---
Pre-Procedural Eval Section A Date of Service: 09/02/22 Section B Chief Complaint: Diverticulitis intestine, part unspecified Relevant Family History (Specify if Yes): No Relevant Social History: None Present Medications: see Short Stay Collaborative assessment Medical History: Significant History (Acute allergic reaction Anemia Diverticulitis Diverticulitis large intestine w/o perforation or abscess w/o bleeding Fatty liver GERD (gastroesophageal reflux disease) History of renal calculi Hypercholesterolemia Hypertension Irritable bowel syndrome Obesity (BMI 30-39.9)) History of Previous Operations: Relevant previous surgery/procedure and date(s) ( H/O tubal ligation History of abdominal hysterectomy History of esophagogastroduodenoscopy (EGD) History of lithotripsy Hx of appendectomy Hx of arthroscopy of left knee Hx of arthroscopy of right knee Hx of colonoscopy) Allergies: Allergies Allergy/AdvReac Type Severity Reaction Status Date / Time No Known Allergies [NKA] Allergy Mild NOT Verified 08/20/22 15:04 APPLICABLE Review of Systems Sugical H&P ROS: Negative: Constitution, Cardiovascular, Respiratory, Neurological, Psychiatric, Hem-Onc, Allergic/Immunologic, Gastrointestinal, Genitourinary, Musculoskeletal, Integumentary, Endocrine and Eyes/Ears/Nose/Throat Exam Surgical H&P Exam: Normal: HEENT, Normal: Heart, Normal: Lungs, Normal: Extremities, Normal: Abdomen, Normal: Skin and Normal: Neurological Plan Diagnosis/Plan: Unchanged I have reviewed the history and physical and performed a pertinent physical examination on my patient. No changes have occurred unless specified. Time Spent With Patient Time: Total time managing care of this patient today ____ minutes.
[2022-09-02 12:24] VITALS: BP 126/72; PULSE 85; RESP 16; TEMP 36.3; O2SAT 95
[2022-09-02 12:39] VITALS: BP 136/82; PULSE 88; RESP 18; TEMP 36.8; O2SAT 97
== END 2022-09-02 13:16 | disposition home or self-care (01) ==
PROVIDERS: PCP Internal Medicine; Visit Provider Internal Medicine Gastroenterology
PROC: 0DJD8ZZ Inspection of Lower Intestinal Tract, Via Natural or Artificial Opening Endoscopic (ICD-10-PCS; CPT 45378; principal; 2022-09-02 13:10)
DX: K57.30 Diverticulosis of large intestine without perforation or abscess without bleeding (principal); K63.89 Other specified diseases of intestine; K64.0 First degree hemorrhoids; R19.4 Change in bowel habit; K21.9 Gastro-esophageal reflux disease without esophagitis; I10 Essential (primary) hypertension; Z79.899 Other long term (current) drug therapy
CPT/HCPCS: 45380; 88305

== ENCOUNTER → 2022-09-17 14:58 | Outpatient (BNVA) | payer BC, SELFPAY | PROVIDERS: PCP Internal Medicine; Visit Provider Nurse Practitioner Family | DX: Z13.89 Encounter for screening for other disorder (principal) ==

== ENCOUNTER → 2022-11-09 15:31 | Outpatient (BNVA) | payer BC, SELFPAY | PROVIDERS: PCP Internal Medicine; Visit Provider Nurse Practitioner Family ==

== ENCOUNTER 2022-12-01 10:33 | Outpatient (AMB) | payer BC, SELFPAY ==
[2022-12-01 10:50] VITALS: BP 156/90; PULSE 91; O2SAT 97; BMI 31.1
--- NOTE | 2022-12-01 10:50 | A.OFFPC_ITS ---
Vital Signs 12/01/22 10:50 Height 5 ft 2 in Weight 170 lb BMI 31.1 BP 156/90 H Blood Pressure Location Lt brachial Position Sitting Pulse 91 Pulse Source Pulse Oximeter Temp Source Skin Pulse Oximetry (%) 97 Oxygen Delivery Method Room Air Intake Visit Reasons: Urinary tract infection Intake Note: pt states pelvic pain and frequent urination X1 week Naturopathic Oncology Provider Required: No Allergies No Known Allergies [NKA] Allergy (Mild, Verified 12/01/22 11:02) NOT APPLICABLE Medication List - Last Reconciled 12/01/22 by COLE Almendarez hydrochlorothiazide 12.5 mg PO DAILY 90 days linaclotide (Linzess) 145 mcg PO DAILY lisinopril 5 mg PO DAILY pantoprazole 40 mg PO DAILY@0630 simethicone (Gas Relief (simethicone)) 125 mg PO TID-QID PRN simvastatin 10 mg PO BEDTIME Tobacco use date assessed: 12/01/22 HPI Urinary tract infection HPI Details Patient is a 57-year-old female presents today for an office visit due to UTI symptoms for the past [address] Field. Medical history significant for GERD, hypercholesterolemia, history of renal calculi, diverticular disease among others. Patient reports that she started with s uprapubic pain, urinary frequency, and burning with urination 1 week ago. She reports that her symptoms are not improving. She denies back pain, no blood in urine. She reports history of kidney stones in the past. Patient denies fever or chills, no shortness of breath or chest pain. [facility] Medical History Acute allergic reaction Anemia Diverticulitis Diverticulitis large intestine w/o perforation or abscess w/o bleeding Fatty liver GERD (gastroesophageal reflux disease) History of renal calculi Hypercholesterolemia Hypertension Irritable bowel syndrome Obesity (BMI 30-39.9) Surgical History H/O tubal ligation History of abdominal hysterectomy History of esophagogastroduodenoscopy (EGD) History of lithotripsy Hx of appendectomy Hx of arthroscopy of left knee Hx of arthroscopy of right knee Hx of colonoscopy Family History Father Brain tumor Mother Hypertension CVD (cardiovascular disease) Social History Household Members: Spouse Housing: House Do you presently have visiting nurse or other home services: No Alcohol intake: never Patient Tobacco Use Status: Never used Tobacco e-Cigarette/Vaping Use: Never Used Second Hand Smoke Exposure: No service: No Current occupational status: employed Cognitive needs: No Hearing needs: No Vision needs: Yes Questionnaire Thrive Questionnaire Date Thrive assessed: 06/17/22 AUDIT C Alcohol Use Questionnaire (AUDIT-C) 1. How often do you have a drink containing alcohol?: Never 3. How often do you have six or more drinks on one occasion?: Never Total Score: 0 Score Reviewed/Action Taken: No JENNIFER-7 AMB Questionnaire JENNIFER-7 Date JENNIFER - 7 assessed: 06/17/22 Source: Developed by Drs. Alan Pang, Kay Garza, Jesús Berger and colleagues, with an educational tejas from [employer]. Review of Systems Const Denies body aches, Denies chills, Denies fever(s) and Denies headache(s) Eyes Denies change in vision ENT Denies dizziness, Denies otalgia, Denies headache(s), Denies nasal discharge, Denies sinus pain and Denies sore throat Card Denies chest pain, Denies edema, Denies lightheadedness and Denies dyspnea Resp Denies cough and Denies dyspnea GI Reports abdominal pain, Denies constipation, Denies diarrhea, Denies nausea and Denies vomiting Reports as per HPI, Denies hematuria, Reports dysuria, Denies flank pain and Denies vaginal discharge Musc Denies myalgias Skin/Breast Denies rash Neuro Denies dizziness and Denies headache(s) Physical exam (Primary Care) Vital Signs: Last Vital Signs Pulse 91 12/01/22 10:50 BP 156/90 H 12/01/22 10:50 Pulse Ox 97 12/01/22 10:50 Oxygen Delivery Method Room Air 12/01/22 10:50 BMI result Body Mass Index 31.1 Tobacco/Smoking Status: Tobacco use Status Tobacco use date assessed 12/01/22 12/01/22 10:52 Patient Tobacco Use Status Never used Tobacco 12/01/22 10:52 e-Cigarette/Vaping Use Never Used 12/01/22 10:52 Thrive Assessment: Date of Thrive Assessment Date Thrive assessed 06/17/22 12/01/22 10:52 Const General: cooperative and no acute distress Orientation/consciousness: patient oriented x3 [facility] Head: Yes normocephalic and Yes atraumatic Mouth: oropharynx normal and moist mucous membranes Throat: Yes posterior oropharynx normal Eyes General: appearance normal, both eyes and all related structures Neck Neck: Yes normal visual inspection and Yes full ROM Resp Effort & Inspection: normal respiratory effort and able to speak in complete sentences Auscultation: clear to auscultation bilaterally, no crackles, no rales, no rhonchi and no wheezes Cardio Rate: regular rate Rhythm: regular rhythm Heart sounds: S1 normal heart sound present and S2 normal heart sound present GI Palpation (GI): Soft to palpation, not firm, Tenderness to palpation present (GI) suprapubicly; with no rebound tenderness, no guarding, not rigid and no hepatosplenomegaly Auscultation: normal bowel sounds General: No CVA tenderness Back/Spine/Pelvis Back: No CVA tenderness Skin General skin exam: no rashes or lesions noted Neuro General: patient oriented x3 Gait exam (Neuro): Normal gait present Extrem General: Yes full ROM and No edema Results AMB Urinalysis, Automated UA Leukoctes 0 Sonia/uL Last Edit by SURESH Adame on 12/01/22 11:01 UA Nitrite Negative Last Edit by SURESH Adame on 12/01/22 11:01 UA Urobilinogen 0.2 mg/dL Last Edit by SURESH Adame on 12/01/22 11:01 UA Protein 0 mg/dL Last Edit by SURESH Adame on 12/01/22 11:01 UA pH 6.0 Last Edit by SURESH Adame on 12/01/22 11:01 UA Blood 0 Lucian/uL Last Edit by SURESH Adame on 12/01/22 11:01 UA Specific Peetz 1.015 Last Edit by SURESH Adame on 12/01/22 11:01 UA Ketone Negative Last Edit by SURESH Adame on 12/01/22 11:01 UA Bilirubin 0 mg/dL Last Edit by SURESH Adame on 12/01/22 11:01 UA Glucose 0 mg/dL Last Edit by SURESH Adame on 12/01/22 11:01 Results Reviewed Results Reviewed: Laboratory Last Values Urine pH (Auto) 6.0 12/01/22 10:49 Specific Peetz (Auto) 1.015 12/01/22 10:49 Urine Protein (Auto) 0 mg/dL 12/01/22 10:49 Glucose (UA)(Auto) 0 mg/dL 12/01/22 10:49 Urine Ketones (Auto) Negative 12/01/22 10:49 Urine Blood (Auto) 0 Lucian/uL 12/01/22 10:49 Urine Nitrite (Auto) Negative 12/01/22 10:49 Urine Bilirubin (Auto) 0 mg/dL 12/01/22 10:49 Urine Urobilinogen (Auto) 0.2 mg/dL 12/01/22 10:49 Leukocyte Esterase (Auto) 0 Sonia/uL 12/01/22 10:49 Assessment and Plan Assessment & Plan (1) Dysuria: Code(s): R30.0 - Dysuria Plan: Patient presents with urinary symptoms for the past 1 week that are not improving. Urinalysis negative in the office today, will send urine for culture. Due to patient being symptomatic will treat with antibiotic for 3 days and provide patient with Pyridium p.r.n.. Patient was encouraged to drink more water. Signs and symptoms reviewed when to notify provider or go to the emergency department. Patient agreed with the plan. Orders: Orders Urine Culture Today R30.0 - Dysuria AMB Urinalysis Automated Today R30.0 - Dysuria Medications: New sulfamethoxazole-trimethoprim 800-160 mg (Bactrim DS) 1 tab PO Q12H 3 days 6 tabs 0RF R30.0 - Dysuria phenazopyridine (Pyridium) 100 mg PO TID PRN 6 tabs 0RF pain R30.0 - Dysuria Coding Level of Care Code Est Pt Level 3 (30400) Diagnoses Dysuria R30.0
== END 2022-12-01 11:14 | disposition home or self-care (01) ==
PROVIDERS: PCP Internal Medicine; Visit Provider Nurse Practitioner Family
DX: R30.0 Dysuria (principal)
CPT/HCPCS: 81003; 99213

== ENCOUNTER 2022-12-01 11:11 | Outpatient (REF) | payer BC, SELFPAY | END 2022-12-01 11:12 | disposition home or self-care (01) | LOC: HO.LAB 11:11 | PROVIDERS: Visit Provider Nurse Practitioner Family | DX: R30.0 Dysuria (principal) | CPT/HCPCS: 87086 ==

== ENCOUNTER 2023-02-08 14:53 | Outpatient (AMB) | payer BC, SELFPAY ==
--- NOTE | 2023-02-08 15:03 | MHC.OFFVIS ---
Intake Vital Signs 02/08/23 15:05 Height 5 ft 2 in Weight 170 lb BMI 31.1 BP 129/81 Blood Pressure Location Lt brachial Position Sitting Pulse 82 Intake Visit Reasons: 3 month follow up Intake Note: Christel presents in the office as a 3 month follow up. CC: She states that she is not having any GI symptoms at this time. General Duty Nurse Required: No Allergies No Known Allergies [NKA] Allergy (Mild, Verified 02/08/23 15:05) NOT APPLICABLE HPI 3 month follow up HPI Details LAST VISIT: Diverticular disease Continue high-fiber diet Constipation Linzess daily as prescribed. GERD (gastroesophageal reflux disease) Continue pantoprazole daily. Avoid dietary triggers and late night snacking. Staying upright from minimum 3 hours after meals discussed with patient. Abdominal bloating Occasional postprandial abdominal bloating and cramping. Continue Linzess. Increase fluid intake and activity to promote better bowel motility. Will order simethicone. I will see patient in 3 months, sooner on as needed basis. Patient is agreeable to this plan and verbalizes understanding of instructions. She was given the opportunity to ask questions and all questions answered. TODAY'S VISIT: Patient is here today for follow-up. Patient reports that she has been doing much better. Most of the time she moves her bowels on her own every day. She feels like she empties her bowels completely. Patient is taking probiotic every day. Patient is eating high-fiber diet. She is taking Linzess on as needed basis. Patient denies any abdominal pain, abdominal bloating or cramping. Last time patient had diverticulitis and symptoms of left lower quadrant pain was in May. Patient had 2 episodes of diverticulitis in 2021 with admission. Patient reports that she has the unit well and feeling well. [facility]MERLY [facility], [facility]1983 Medical History Acute allergic reaction Anemia Diverticulitis Diverticulitis large intestine w/o perforation or abscess w/o bleeding Fatty liver GERD (gastroesophageal reflux disease) History of renal calculi Hypercholesterolemia Hypertension Irritable bowel syndrome Obesity (BMI 30-39.9) Surgical History H/O tubal ligation History of abdominal hysterectomy History of esophagogastroduodenoscopy (EGD) History of lithotripsy Hx of appendectomy Hx of arthroscopy of left knee Hx of arthroscopy of right knee Hx of colonoscopy Family History Father Brain tumor Mother Hypertension CVD (cardiovascular disease) Social History Household Members: Spouse Housing: House Do you presently have visiting nurse or other home services: No Alcohol intake: never Patient Tobacco Use Status: Never used Tobacco e-Cigarette/Vaping Use: Never Used Second Hand Smoke Exposure: No service: No Current occupational status: employed Cognitive needs: No Hearing needs: No Vision needs: Yes Review of Systems Const Denies weight gain and Denies weight loss ENT Reports no additional complaints, Denies dysphagia and Denies odynophagia Card Reports no additional complaints Resp Reports no additional complaints GI Denies abdominal pain, Denies belching, Denies melena, Denies bloating, Denies change in bowel habits, Denies dysphagia, Denies excessive flatus, Denies dyspepsia, Denies heartburn, Denies diarrhea, Denies loose stools, Denies nausea, Denies odynophagia and Denies vomiting Musc Reports no additional complaints Neuro Reports no additional complaints Psych Reports no additional complaints Endo Reports no additional complaints Physical Exam Vital Signs: Last Vital Signs Pulse 82 02/08/23 15:05 BP 129/81 02/08/23 15:05 BMI result Body Mass Index 31.1 Const General: healthy appearing, no acute distress and well developed Nutritional Appearance: obese Orientation/consciousness: patient oriented x3 HEENT Head: Yes normal to inspection, Yes normocephalic and Yes atraumatic Face and sinus: Yes normal facial exam Mouth: Normal oral and palatal mucosa present Throat: Yes posterior oropharynx normal, Yes tonsils normal and Yes uvula midline Eyes General: appearance normal, both eyes and all related structures Neck Neck: Yes normal visual inspection, Yes full ROM and Yes trachea midline Thyroid: Thyroid normal Resp Effort & Inspection: normal respiratory effort, able to speak in complete sentences, no tracheal deviation and symmetric chest movement Auscultation: clear to auscultation bilaterally Cardio Rate: regular rate Heart sounds: S1 normal heart sound present and S2 normal heart sound present GI Inspection: Yes normal to inspection, No distended and Yes obesity Palpation (GI): Soft to palpation, not firm, nontender and No hepatosplenomegaly present Auscultation: normal bowel sounds General: Yes no CVA tenderness Back/Spine/Pelvis Back: no CVA tenderness Skin General skin exam: elasticity normal, turgor normal and dry skin Neuro General: patient oriented x3 Psych Appearance: grossly normal Mental Status: mental status grossly normal Assessment & Plan Assessment & Plan (1) Diverticular disease: Code(s): K57.90 - Diverticulosis of intestine, part unspecified, without perforation or abscess without bleeding Plan: Continue taking probiotic every day. Continue high-fiber diet. (2) Sigmoid diverticulitis: Code(s): K57.32 - Diverticulitis of large intestine without perforation or abscess without bleeding Plan: History of sigmoid diverticulitis. Patient will continue to drink plenty fluids continue probiotic. Patient was encouraged to he high-fiber diet. (3) Constipation: Code(s): K59.00 - Constipation, unspecified Qualifiers: Constipation type: slow transit constipation Qualified Code(s): K59.01 - Slow transit constipation Plan: Patient was encouraged to increase fluid intake and activity to promote better bowel acuity. Patient can take Linzess on as needed basis, however patient can start taking Colace on daily basis. She will follow-up in the office in 1 year, sooner on as needed basis. Patient is agreeable to this plan and verbalizes understanding of instructions. She was given the opportunity to ask questions all questions answered. Thank you for allowing me to participate in her care Coding Level of Care Code Est Pt Level 4 (96744) Diagnoses Diverticular disease K57.90 Sigmoid diverticulitis K57.32 Slow transit constipation K59.01 Constipation type: slow transit constipation Time Spent (min) 35 Comment 25 minutes spent with patient and additional 10 minutes spent reviewing her records
[2023-02-08 15:05] VITALS: BP 129/81; PULSE 82; BMI 31.1
== END 2023-02-08 15:21 | disposition home or self-care (01) ==
PROVIDERS: PCP Internal Medicine; Visit Provider Nurse Practitioner Family
DX: K57.90 Diverticulosis of intestine, part unspecified, without perforation or abscess without bleeding (principal); K57.32 Diverticulitis of large intestine without perforation or abscess without bleeding; K59.01 Slow transit constipation
CPT/HCPCS: 99214

== ENCOUNTER → 2023-02-08 14:53 | Outpatient (BNVA) | payer BC, SELFPAY | PROVIDERS: PCP Internal Medicine; Visit Provider Nurse Practitioner Family ==

== ENCOUNTER 2023-03-17 11:17 | Outpatient (REF) | payer BC, SELFPAY ==
[2023-03-17 12:00] LABS: Appearance Urine Clear; Color Urine Yellow; Glucose Urine UA Negative (Negative); Leukocyte Esterase Urine Trace (Negative); Nitrite Urine Negative (Negative); PH 5.5 (5.0-9.0); Specific Gravity - Urine <= 1.005 (1.005-1.025); UMIC TRIGGER UACC YES; Urine Blood Negative (Negative); Urine Ketones Negative (Negative); Urine Protein Negative (Neg-Trace)
[2023-03-17 12:02] LABS: Estimated Average Glucose 126 mg/dL
[2023-03-17 12:16] LABS: Bacteria Urine None Seen (None Seen); Hyaline Casts Urine 0-2 /LPF (0-2); RBC Urine 0-2 /HPF (0-2); Squamous Epithelial Cell Urine 0-2 /HPF (0-2); WBC Urine 0-5 /HPF (0-5)
[2023-03-17 12:25] LABS: Anion Gap 12 (12-20); Blood Urea Nitrogen 10 mg/dL (9-16); Calcium 10.2 mg/dL (8.4-10.2); Carbon Dioxide 29 mmol/L (22-29); Chloride 102 mmol/L (96-108); Estimated Glomerular Filt Rate > 60; Glucose Random 133 mg/dL (60-115); Potassium 3.5 mmol/L (3.3-5.1); Sodium 139 mmol/L (135-145)
== END 2023-03-17 11:18 | disposition home or self-care (01) ==
LOC: HO.LAB 11:17
PROVIDERS: PCP Internal Medicine; Visit Provider Internal Medicine
DX: I10 Essential (primary) hypertension (principal); R73.02 Impaired glucose tolerance (oral)
CPT/HCPCS: 36415; 80048; 81001; 81003; 83036

== ENCOUNTER 2023-03-18 13:59 | Emergency (ER) | payer BC, SELFPAY ==
[2023-03-18 14:04] VITALS: BP 144/92; PULSE 99; RESP 16; TEMP 36.4; O2SAT 97; BMI 31.0
--- NOTE | 2023-03-18 14:04 | ED_ITS ---
HPI - General Adult General Chief complaint: Abdominal Pain Stated complaint: Pelvic pain Time Seen by Provider: 03/18/23 16:24 Source: patient Mode of arrival: ambulatory Limitations: no limitations History of Present Illness HPI narrative: 57-year-old female who presents emergency department for evaluation of pelvic pain x3 days. Patient states that the pain came on gradually. Describes the pain is a burning sensation inside her vaginal area and pelvic area. She denies discharge which she did have small amount of bleeding 3 days prior which she describes as spotting. She states the pain is been constant and is 8/10 at its worst. She did take ibuprofen Tylenol with some relief for the pain. Patient states she is sexually active and last had intercourse 1 month prior. She states she had similar pain 3 months ago and was treated for a pelvic infection but does not recall what medications he was given. I did review the patient's office note from 12/01/2022, patient had a negative urinalysis but was symptomatic and she was treated for urinary tract infection with Bactrim x3 days and Pyridium. Urine culture from that visit did not grow any significant bacteria, report stay ? less than 10,000 colony-forming units per mL ?. Review of systems was positive for chills, cough productive of yellow sputum and frequency. Review of systems was negative for fever, rhinorrhea, sore throat, chest pain, shortness of breath, nausea, vomiting, diarrhea, dysuria, dark stools, bloody stools Related Data Previous Rx's Medication Instructions Recorded lisinopril 5 mg tablet 5 mg PO DAILY #90 tabs 05/02/22 linaclotide 145 mcg capsule 145 mcg PO DAILY #90 caps 08/20/22 (Linzess) pantoprazole 40 mg tablet,delayed 40 mg PO DAILY@0630 #90 tabs 09/03/22 release simvastatin 10 mg tablet 10 mg PO BEDTIME #90 tabs 09/03/22 hydrochlorothiazide 12.5 mg tablet 12.5 mg PO DAILY 90 days #90 tabs 10/07/22 simethicone 125 mg capsule (Gas 125 mg PO TID-QID PRN abdominal 11/09/22 Relief (simethicone)) distention #120 caps phenazopyridine 100 mg tablet 100 mg PO TID PRN pain 6 doses #6 12/01/22 (Pyridium) tabs acetaminophen 500 mg tablet 1,000 mg (2 x 500 mg) PO Q6H PRN 03/18/23 (Tylenol Extra Strength) fever or pain #20 tabs doxycycline hyclate 100 mg tablet 100 mg PO Q12H 14 days #28 tabs 03/18/23 ibuprofen 400 mg tablet 400 mg PO TID PRN fever or pain 03/18/23 #30 tabs metronidazole 500 mg tablet 500 mg PO BID 10 days #20 tabs 03/18/23 Allergies Allergy/AdvReac Type Severity Reaction Status Date / Time No Known Allergies [NKA] Allergy Mild NOT Verified 02/08/23 15:05 APPLICABLE [facility] Past Medical History [facility] Narrative: Social history: Patient denies tobacco, alcohol and drug use. She is sexually active and last had intercourse 1 month prior. Medical History Acute allergic reaction Anemia Diverticulitis Diverticulitis large intestine w/o perforation or abscess w/o bleeding Fatty liver GERD (gastroesophageal reflux disease) History of renal calculi Hypercholesterolemia Hypertension Irritable bowel syndrome Obesity (BMI 30-39.9) Surgical History H/O tubal ligation History of abdominal hysterectomy History of esophagogastroduodenoscopy (EGD) History of lithotripsy Hx of appendectomy Hx of arthroscopy of left knee Hx of arthroscopy of right knee Hx of colonoscopy Family History Family History Father Brain tumor Mother Hypertension CVD (cardiovascular disease) Social History Social History Household Members: Spouse Housing: House Do you presently have visiting nurse or other home services: No Alcohol intake: never Patient Tobacco Use Status: Never used Tobacco e-Cigarette/Vaping Use: Never Used Second Hand Smoke Exposure: No Advance Directives: No Advance Directives Information Provided: No service: No Current occupational status: employed Cognitive needs: No Hearing needs: No Vision needs: Yes Physical Exam ED Vital Signs: Vital Signs - 24 hr 03/18/23 14:04 Temperature 97.5 F Pulse Rate 99 Respiratory Rate 16 Blood Pressure 144/92 H Pulse Oximetry 97 Oxygen Delivery Method Room Air BMI result Body Mass Index 31.0 Vital signs revealed an elevated blood pressure of 144/92 otherwise under Exam General: Awake, alert in no distress Head: Normocephalic, atraumatic EENT: PERRL, Lids normal, sclera normal, conjunctiva normal, nose normal , ears normal, throat without erythema or exudates Neck: Supple, no adenopathy, no trachea midline or C-spine tenderness Lung: breath sounds symmetric, no wheezing, rales or rhonchi Chest: symmetric movement, nontender Heart: regular rate and rhythm, normal S1, S2 no murmurs or rubs Abdomen: Soft tender lower abdomen with increased tenderness in the suprapubic area and left lower quadrant, nondistended, normal bowel sounds : External : down a little exam was normal Speculum exam: The vagina revealed a thick greenish vaginal discharge, cervical cuff was visualized Bimanual exam: Patient has tenderness palpation of the cervical cuff. Patient has significant tenderness palpation over her adnexal regions bilaterally as well as her suprapubic region on the bimanual exam. Back: no vertebral tenderness, no CVAT Extremities: no deformities, moves all extremities symmetrically Skin: no rashes, no lesion, normal color and warmth Neuro: Awake, alert, oriented, normal speech, cranial nerves intact, moves all extremities symmetrically Psych: Pleasant, cooperative Course Course Course Narrative: RME- 57 year old female presents for evaluation of pelvic pain for the last 3 days. She reports some vaginal spotting/bleeding and she is post menopausal. Plan for labs, UA, and pelvic ultrasound Medical Decision Making Medical Decision Making MDM Narrative: 57-year-old female with a history of diverticulitis, gastritis, GERD, hypercholesterolemia, hysterectomy, bilateral tubal ligation, appendectomy, C- section x3 who presents emergency department for evaluation of 3 days of lower abdominal pain which came on gradually and is now constant, pain is 8/10 and is a burning sensation. Patient had chills and frequency but no dysuria. Patient has not noted a vaginal discharge but she did have vaginal spotting x1 day which resolved. Patient is sexually active. Vital signs revealed an elevated blood pressure otherwise unremarkable. Exam did reveal lower abdominal tenderness with increased tenderness in the suprapubic and left lower quadrant areas. Following evaluation was ordered: CBC, CMP, UA, CT NG 17:39 The patient abdominal exam did reveal significant lower abdominal tenderness. exam did reveal a concerning vaginal discharge with tenderness palpation of the cervical cuff and bilateral adnexal areas. Based on her presentation, my impression is she has pelvic inflammatory disease She was treated with ceftriaxone with lidocaine 500 mg IM, given prescriptions for doxycycline 100 mg q.12 hours times 14 days, metronidazole 500 mg q.12 hours times 14 days, ibuprofen 400 mg 3 times a day as needed for pain and the Tylenol 1000 mg 3 times a day as needed for pain Patient was given printed and verbal instructions, she is referred to our tax accounting manager group for re-evaluation. Differential Diagnosis Differential includes was not limited to diverticulitis, pelvic inflammatory disease, urinary tract infection , STD Admission/Observation Consideration of admission/observation: Escalation of care including admission/observation considered Lab Data MDM Lab Attestation statement: I reviewed the patient's lab results. My interpretation patient's laboratory evaluation is as follows: Glucose elevated 137 otherwise normal 03/18/23 14:17 03/18/23 14:17 Labs: Lab Results 03/18/23 03/18/23 Range/Units 14:17 17:20 WBC 12.9 H (4.8-10.8) X10*3/uL RBC 4.58 (4.20-5.50) X10*6/uL Hgb 12.7 (12.0-16.0) g/dl Hct 39.2 (37.0-47.0) % MCV 85.6 (80.0-98.0) fL MCH 27.7 (27.0-33.0) pg MCHC 32.4 (31.0-35.0) g/dl RDW 12.7 (11.0-16.0) % Plt Count 392 (160-400) X10*3/uL MPV 8.4 L (9.4-12.3) fL Immature Gran % (Auto) 0.6 H (0.0-0.4) % Neut % (Auto) 64.6 (45-73) % Lymph % (Auto) 26.4 (20-40) % [place] % (Auto) 6.1 (2-11) % Eos % (Auto) 1.9 (0-4) % Baso % (Auto) 0.4 (0-2) % Lymph # (Auto) 3.4 (1.2-4.9) X10*3/uL [place] # (Auto) 0.8 (0.1-1.2) X10*3/uL Eos # (Auto) 0.3 (0.0-0.4) X10*3/uL Baso # (Auto) 0.1 (0.0-0.2) X10*3/uL Abs Immat Gran (auto) 0.08 H (0.00-0.03) X10*3/uL Absolute Neuts (auto) 8.3 (2.0-8.3) x10*3/uL Absolute Nucleated RBC 0.000 (0.0-0.012) X10*3/uL Nucleated RBC % (auto) 0.0 (0.0-0.2) /100WBC Sodium 138 (135-145) mmol/L Potassium 3.5 (3.3-5.1) mmol/L Chloride 103 (96-108) mmol/L Carbon Dioxide 26 (22-29) mmol/L Anion Gap 13 (12-20) BUN 10 (9-16) mg/dL Creatinine 0.84 (0.5-1.4) mg/dL Estim Creat Clear Calc 70.9 Estimated GFR > 60 Random Glucose 137 H (60-115) mg/dL Calcium 10.5 H (8.4-10.2) mg/dL Urine Color Yellow Urine Appearance Clear Urine pH 6.5 (5.0-9.0) Ur Specific [place] 1.020 (1.005-1.025) Urine Protein Negative (Neg-Trace) mg/dL Urine Glucose (UA) Negative (Negative) mg/dL Urine Ketones Negative (Negative) mg/dL Urine Blood Trace H (Negative) Urine Nitrite Negative (Negative) Ur Leukocyte Esterase Moderate (2+) H (Negative) Urine RBC 3-5 H (0-2) /HPF Urine WBC 21-50 H (0-5) /HPF Ur Squamous Epith Cells 6-10 (0-2) /HPF Urine Bacteria None Seen (None Seen) Hyaline Casts 0-2 (0-2) /LPF Prescription Management I considered prescription management with: Pain Medication and Antibiotic Chronic Conditions Patient?s care impacted by: Other (Hyperlipidemia, gastritis) Discharge Plan Discharge Clinical Impression: Acute pelvic inflammatory disease Patient Disposition: Home, Self-Care Additional Instructions: Pelvic inflammatory disease instructions: Your presentation and physical findings are consistent with pelvic inflammatory disease (PID). Approximately 30% of the time, pelvic inflammatory disease is caused by sexually transmitted diseases such as Trichomonas, gonorrhea or chlamydia. Approximately 70% of the time, pelvic inflammatory disease is caused by abnormal bacteria (anaerobic bacteria) in your vagina that can cause an infection Medications You received ceftriaxone 500 mg intramuscularly here in the emergency department Take doxycycline 100 mg, 1 pill twice a day for 14 days. Take metronidazole 500 mg, 1 pill twice a day for 14 days. These 3 antibiotics treat sexually transmitted diseases such as gonorrhea, chlamydia and Trichomonas as well as anaerobic bacteria that can cause pelvic inflammatory disease. Take ibuprofen 400 mg pills, 1 pills every 6 hours as needed for pain. Take Tylenol (acetaminophen) 500 mg pills, 2 pills every 6 hours as needed for pain. Follow-Up Follow-up with our gynecology practice in 10-14 days. Pending laboratory tests: The doctor that follows up will need to review the following results with you: Gonorrhea and chlamydia (urine test) You can also check these results on the patient portal. Return precautions: Please return to the emergency department if your symptoms get worse if your pain does not go away in 24-48 hours or if you develop any symptoms that are concerning to you. Prescriptions: New metronidazole 500 mg tablet 500 mg PO BID 10 Days Qty: 20 0RF acetaminophen [Tylenol Extra Strength] 500 mg tablet 1,000 mg PO Q6H PRN (Reason: fever or pain) Qty: 20 0RF ibuprofen 400 mg tablet 400 mg PO TID PRN (Reason: fever or pain) Qty: 30 0RF doxycycline hyclate 100 mg tablet 100 mg PO Q12H 14 Days Qty: 28 0RF No Action lisinopril 5 mg tablet 5 mg PO DAILY Qty: 90 2RF pantoprazole 40 mg tablet,delayed release (DR/EC) 40 mg PO DAILY@0630 Qty: 90 3RF simvastatin 10 mg tablet 10 mg PO BEDTIME Qty: 90 3RF hydrochlorothiazide 12.5 mg tablet 12.5 mg PO DAILY 90 Days Qty: 90 1RF phenazopyridine [Pyridium] 100 mg tablet 100 mg PO TID PRN (Reason: pain) Qty: 6 0RF Linzess 145 mcg capsule 145 mcg PO DAILY Qty: 90 2RF simethicone [Gas Relief (simethicone)] 125 mg capsule 125 mg PO TID-QID PRN (Reason: abdominal distention) Qty: 120 2RF
[2023-03-18 14:21] LABS: MANUAL DIFF FLAG NO
[2023-03-18 14:23] LABS: Basophils Absolute Auto 0.1 X10*3/uL (0.0-0.2); Basophils Percent Auto 0.4 % (0-2); Eosinophils Absolute Auto 0.3 X10*3/uL (0.0-0.4); Eosinophils Percent Auto 1.9 % (0-4); Hematocrit 39.2 % (37.0-47.0); Hemoglobin 12.7 g/dl (12.0-16.0); Imm Gran Abs Auto 0.08 X10*3/uL (0.00-0.03); Imm Gran Pct Auto 0.6 % (0.0-0.4); Lymphocytes Absolute Auto 3.4 X10*3/uL (1.2-4.9); Lymphocytes Percent Auto 26.4 % (20-40); Mean Corpuscular HGB Conc 32.4 g/dl (31.0-35.0); Mean Corpuscular Hemoglobin 27.7 pg (27.0-33.0); Mean Corpuscular Volume 85.6 fL (80.0-98.0); Mean Platelet Volume 8.4 fL (9.4-12.3); Monocytes Absolute Auto 0.8 X10*3/uL (0.1-1.2); Monocytes Percent Auto 6.1 % (2-11); Neutrophils Absolute Auto 8.3 x10*3/uL (2.0-8.3); Neutrophils Percent Auto 64.6 % (45-73); Platelet Count 392 X10*3/uL (160-400); Red Blood Count 4.58 X10*6/uL (4.20-5.50); Red Cell Distribution Width 12.7 % (11.0-16.0); White Blood Count 12.9 X10*3/uL (4.8-10.8)
[2023-03-18 14:39] LABS: Anion Gap 13 (12-20); Blood Urea Nitrogen 10 mg/dL (9-16); Calcium 10.5 mg/dL (8.4-10.2); Carbon Dioxide 26 mmol/L (22-29); Chloride 103 mmol/L (96-108); Creatinine Clr Calc Pharmacy 70.9; Estimated Glomerular Filt Rate > 60; Glucose Random 137 mg/dL (60-115); Potassium 3.5 mmol/L (3.3-5.1); Sodium 138 mmol/L (135-145)
[2023-03-18 17:28] LABS: Appearance Urine Clear; Color Urine Yellow; Glucose Urine UA Negative (Negative); Leukocyte Esterase Urine Moderate (2+) (Negative); Nitrite Urine Negative (Negative); PH 6.5 (5.0-9.0); UMIC TRIGGER UACC YES; Urine Blood Trace (Negative); Urine Ketones Negative (Negative); Urine Protein Negative (Neg-Trace)
[2023-03-18 17:30] LABS: Bacteria Urine None Seen (None Seen); Hyaline Casts Urine 0-2 /LPF (0-2); UACC Culture Trigger YES; WBC Urine 21-50 /HPF (0-5)
[2023-03-18] MEDS: cefTRIAXone sodium 500 MG, Lidocaine HCl 1 % MPF 1 ML IM (18:04)
[2023-03-19 06:52] LABS: CT PCR NOT DETECTED (Not Detect.); NG PCR NOT DETECTED (Not Detect.)
== END 2023-03-18 18:39 | disposition home or self-care (01) ==
PROVIDERS: Physician Assistant; Emergency Provider Emergency Medicine Emergency Medical Services; PCP Internal Medicine
DX: N73.0 Acute parametritis and pelvic cellulitis (principal); R10.2 Pelvic and perineal pain; I10 Essential (primary) hypertension; E78.00 Pure hypercholesterolemia, unspecified; Z90.710 Acquired absence of both cervix and uterus
CPT/HCPCS: 0353U; 36415; 80048; 81001; 85025; 87086; 96372; 99282; 99284; J0696

== ENCOUNTER 2023-05-06 14:53 | Outpatient (AMB) | payer BC, SELFPAY ==
[2023-05-06 14:56] VITALS: BP 140/100; PULSE 82; RESP 17; BMI 31.0
--- NOTE | 2023-05-06 14:56 | A.OFFPC_ITS ---
Vital Signs 05/06/23 14:56 Height 5 ft 2 in Weight 169 lb 6 oz BMI 31.0 BP 140/100 H Blood Pressure Location Lt brachial Position Sitting Respiration 17 Pulse 82 Pulse Source Palpation Intake Visit Reasons: Annual Exam Intake Note: Patient is here today for a physical. 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 Accompanied by: Self / Same As Patient Allergies lisinopril Adverse Reaction (Intermediate, Unverified 05/06/23 16:03) Cough Medication List - Last Reconciled 05/06/23 by Isaac Field MD acetaminophen (Tylenol Extra Strength) 1,000 mg (2 x 500 mg) PO Q6H PRN hydrochlorothiazide 12.5 mg PO DAILY 90 days linaclotide (Linzess) 145 mcg PO DAILY lisinopril 5 mg PO DAILY pantoprazole 40 mg PO DAILY@0630 simethicone (Gas Relief (simethicone)) 125 mg PO TID-QID PRN simvastatin 10 mg PO BEDTIME Tobacco use date assessed: 12/01/22 Dental Screening Dental Screen Date: 05/06/23 Did you have a dental visit in the last 12 months?: Yes Did you have a dental problem in the last 6 months where you did not have access to dental care?: No Was dental information given to patient?: Patient has dentist HPI Annual Exam HPI Details 57-year-old obese female with GERD hyper cholesterolemia impaired glucose tolerance last seen in May 2022. Patient is here for physical exam. Colonoscopy last done in August 2022 mammogram is due bone density done in 2016. Patient is here for physical exam February 2023 ER visit for pelvic inflammatory disease. January patient was seen by Gastroenterology for diverticular disease and constipation had a urinary tract infection in November treated with Bactrim. Colonoscopy done in August 2022 for history of diverticulitis found to have internal hemorrhoids also. cough 2 months , no sore throat, , no chest tightness. tongue pain and seen ENT here in [place] - no relief- also problem with dysuria [facility] Medical History (Updated 05/06/23 @ 16:04 by Isaac Field MD) Dysuria Hypertension Hospital discharge follow-up Sigmoid diverticulitis Hypokalemia Thrush Diverticulitis Tongue burning sensation Tongue abnormality Diverticulitis large intestine w/o perforation or abscess w/o bleeding Anemia Acute allergic reaction Fatty liver Irritable bowel syndrome History of renal calculi Hypercholesterolemia GERD (gastroesophageal reflux disease) Obesity (BMI 30-39.9) Surgical History Hx of colonoscopy History of esophagogastroduodenoscopy (EGD) Hx of arthroscopy of left knee Hx of arthroscopy of right knee History of lithotripsy Hx of appendectomy H/O tubal ligation History of abdominal hysterectomy Family History Father Brain tumor Mother Hypertension CVD (cardiovascular disease) Social History Household Members: Spouse Housing: House Do you presently have visiting nurse or other home services: No Alcohol intake: never Patient Tobacco Use Status: Never used Tobacco e-Cigarette/Vaping Use: Never Used Second Hand Smoke Exposure: No service: No Current occupational status: employed Cognitive needs: No Hearing needs: No Vision needs: Yes Questionnaire Thrive Questionnaire Date Thrive assessed: 06/17/22 JENNIFER-7 AMB Questionnaire JENNIFER-7 Date JENNIFER - 7 assessed: 06/17/22 Source: Developed by Drs. Alan Pang, Kay Garza, Jesús Berger and colleagues, with an educational tejas from [email or web address]. Review of Systems Const Denies poor appetite and Denies weakness Eyes Denies no additional complaints ENT Reports Normal hearing present, Denies dizziness, Denies nasal congestion, Denies tinnitus and Denies sore throat Card Denies chest pain, Denies syncope, Denies rapid heart rate and Denies dyspnea Resp Denies cough and Denies dyspnea GI Denies change in stool character, Reports constipation, Denies diarrhea, Denies nausea and Denies vomiting Denies urinary frequency, Denies difficulty voiding and Denies dysuria Neuro Reports Normal hearing present, Denies confusion, Denies dizziness, Denies syncope and Denies weakness Psych Denies confusion Physical exam (Primary Care) Vital Signs: Last Vital Signs Pulse 82 05/06/23 14:56 Resp 17 05/06/23 14:56 BP 140/100 H 05/06/23 14:56 BMI result Body Mass Index 31.0 Tobacco/Smoking Status: Tobacco use Status Tobacco use date assessed 12/01/22 05/06/23 14:58 Patient Tobacco Use Status Never used Tobacco 05/06/23 14:58 e-Cigarette/Vaping Use Never Used 05/06/23 14:58 Thrive Assessment: Date of Thrive Assessment Date Thrive assessed 06/17/22 05/06/23 14:58 Const General: No confusion Orientation/consciousness: No confusion HENMT Head: Yes normocephalic Ears: external ears normal and TM's normal bilaterally Face and sinus: Yes normal facial exam Mouth: moist mucous membranes Throat: Yes tonsils normal Eyes Conjunctivae: conjunctivae normal Pupils: Equal, round and reactive pupils present and Pupil accommodation reflex normal Direct Ophthalmoscopy: normal light reflex Neck Neck: No lymphadenopathy Thyroid: Thyroid normal Chest Chest palpation & inspection: normal inspection of the chest Resp Effort & Inspection: normal respiratory effort and no audible wheezes Auscultation: clear to auscultation bilaterally, no crackles, no wheezes and lung sounds not diminished Cardio Rate: regular rate Rhythm: regular rhythm Peripheral pulses: radial pulses present and dorsalis pedis present GI Palpation (GI): no masses Auscultation: normal bowel sounds and normoactive bowel sounds Rectal Exam - Female: deferred Skin General skin exam: no rashes or lesions noted Rashes: no rashes Neuro General: No confusion Cranial nerves: Yes Equal, round and reactive pupils present and Yes Normal hearing present Cognition (Neuro): normal cognition Gait exam (Neuro): Normal gait present Motor exam (neuro): 5/5 motor strength present throughout Deep tendon reflexes (DTR's): Right brachioradialis reflex intensity grade: 2+, Left brachioradialis reflex intensity grade: 2+, Right patellar reflex intensity grade: 2+ and Left patellar reflex intensity grade: 2+ Extrem General: No edema Results AMB Urinalysis, Automated UA Leukoctes 500 Sonia/uL Last Edit by FRAN Martins on 05/06/23 16:04 UA Nitrite Negative Last Edit by FRAN Martins on 05/06/23 16:04 UA Urobilinogen 0 mg/dL Last Edit by FRAN Martins on 05/06/23 16:04 UA Protein 0 mg/dL Last Edit by FRAN Martins on 05/06/23 16:04 UA pH 6.0 Last Edit by FRAN Martins on 05/06/23 16:04 UA Blood 0 Lucian/uL Last Edit by FRAN Martins on 05/06/23 16:04 UA Specific [place] 1.030 Last Edit by FRAN Martins on 05/06/23 16:04 UA Ketone Negative Last Edit by FRAN Martins on 05/06/23 16:04 UA Bilirubin 1 mg/dL Last Edit by FRAN Martins on 05/06/23 16:04 UA Glucose 0 mg/dL Last Edit by FRAN Martins on 05/06/23 16:04 Results Reviewed Results Reviewed: Laboratory Last Values Urine pH (Auto) 6.0 05/06/23 16:03 Specific [place] (Auto) 1.030 05/06/23 16:03 Urine Protein (Auto) 0 mg/dL 05/06/23 16:03 Glucose (UA)(Auto) 0 mg/dL 05/06/23 16:03 Urine Ketones (Auto) Negative 05/06/23 16:03 Urine Blood (Auto) 0 Lucian/uL 05/06/23 16:03 Urine Nitrite (Auto) Negative 05/06/23 16:03 Urine Bilirubin (Auto) 1 mg/dL 05/06/23 16:03 Urine Urobilinogen (Auto) 0 mg/dL 05/06/23 16:03 Leukocyte Esterase (Auto) 500 Sonia/uL 05/06/23 16:03 Assessment and Plan Assessment & Plan (1) Annual physical exam: Code(s): Z00.00 - Encounter for general adult medical examination without abnormal findings (2) Diverticular disease: Code(s): K57.90 - Diverticulosis of intestine, part unspecified, without perforation or abscess without bleeding Plan: Avoid constipation and continue to monitor (3) Impaired glucose tolerance: Code(s): R73.02 - Impaired glucose tolerance (oral) Plan: Decrease the amount of carbohydrate intake, pasta, bread, rice and potatoes are all sugar and that is aside from all the sweet stuff, remember that fruits are good but they are Sweet also. (4) Hypercholesterolemia: Code(s): E78.00 - Pure hypercholesterolemia, unspecified Plan: Avoid fried foods, chicken skin, eggs, butter margarine, pastries and meat. Be it pork or beef they have a lot of cholesterol LDL goal of less than 130 and triglyceride of less than 150. Patient on simvastatin 10 mg once a day (5) GERD (gastroesophageal reflux disease): Code(s): K21.9 - Gastro-esophageal reflux disease without esophagitis Qualifiers: Esophagitis presence: without esophagitis Qualified Code(s): K21.9 - Gastro-esophageal reflux disease without esophagitis Plan: Avoid the foods that causes that usually spicy foods, tomato products, juices, coffee, soda and foods that your sensitive to. After eating do not lie down, allow 3-4 hours before in lie down. And keep the head of bed above 30 degrees to avoid the acid from going up. (6) Constipation: Code(s): K59.00 - Constipation, unspecified Qualifiers: Constipation type: slow transit constipation Qualified Code(s): K59.01 - Slow transit constipation Plan: Three rules for constipation 1. Diet need to have a high fiber diet less of meat 2. Increase oral fluids 3. Exercise (7) Hypertension: Code(s): I10 - Essential (primary) hypertension Qualifiers: Hypertension type: primary hypertension Qualified Code(s): I10 - Essential (primary) hypertension Plan: Continue with blood pressure medication. Decrease salt intake and exercise patient on hydrochlorothiazide 12.5 mg once a day lisinopril 5 mg once a day (8) Painful tongue: Code(s): K14.6 - Glossodynia Plan: Will get a 2nd opinion with a different ENT (9) Dysuria: Code(s): R30.0 - Dysuria Plan: Urinalysis requested (10) UTI (urinary tract infection): Code(s): N39.0 - Urinary tract infection, site not specified Plan: Antibiotics sent Orders: Orders Comprehensive Met. Panel 1 Month R73.02 - Impaired glucose tolerance (oral) Free T4 (Free Thyroxine) 1 Month E78.00 - Pure hypercholesterolemia, unspecified Vitamin B12 and Folate 1 Month E78.00 - Pure hypercholesterolemia, unspecified AMB Urinalysis Automated Today R30.0 - Dysuria, Z13.9 - Encounter for screening, unspecified UA CC w/rflx Micro + Cult Today N39.0 - Urinary tract infection, site not specified, R30.0 - Dysuria Hemoglobin A1c 1 Month R73.02 - Impaired glucose tolerance (oral) Lipid Panel 1 Month E78.00 - Pure hypercholesterolemia, unspecified Complete Blood Count Auto Diff 1 Month E78.00 - Pure hypercholesterolemia, unspecified Thyroid Stimulating Hormone 1 Month E78.00 - Pure hypercholesterolemia, unspecified Vitamin D 25-OH Total 1 Month E78.00 - Pure hypercholesterolemia, unspecified Referrals Ear/Nose/Throat Referral K14.6 - Glossodynia Medications: New losartan 50 mg PO DAILY 30 tabs 3RF I10 - Essential (primary) hypertension ciprofloxacin HCl 250 mg PO BID 10 tabs 0RF N39.0 - Urinary tract infection, site not specified Discontinued lisinopril Discontinued Reason: Doctor's Order 5 mg PO DAILY 90 tabs 2RF Coding Level of Care Code Est Pt Prev Care 40-64y(95731) Diagnoses Annual physical exam Z00.00 Diverticular disease K57.90 Impaired glucose tolerance R73.02 Hypercholesterolemia E78.00 Gastroesophageal reflux disease without esophagitis K21.9 Esophagitis presence: without esophagitis Slow transit constipation K59.01 Constipation type: slow transit constipation Primary hypertension I10 Hypertension type: primary hypertension Painful tongue K14.6 Dysuria R30.0 UTI (urinary tract infection) N39.0
== END 2023-05-06 15:49 | disposition home or self-care (01) ==
PROVIDERS: Visit Provider Internal Medicine
DX: Z00.00 Encounter for general adult medical examination without abnormal findings (principal); K57.90 Diverticulosis of intestine, part unspecified, without perforation or abscess without bleeding; R73.02 Impaired glucose tolerance (oral); N39.0 Urinary tract infection, site not specified
CPT/HCPCS: 81003; 99396

== ENCOUNTER 2023-05-06 17:27 | Outpatient (REF) | payer BC, SELFPAY ==
[2023-05-06 17:35] LABS: Appearance Urine Clear; Color Urine Yellow; Glucose Urine UA Negative (Negative); Leukocyte Esterase Urine Moderate (2+) (Negative); Nitrite Urine Negative (Negative); PH 5.5 (5.0-9.0); UMIC TRIGGER UACC YES; Urine Blood Trace (Negative); Urine Ketones Negative (Negative); Urine Protein Negative (Neg-Trace)
[2023-05-06 17:39] LABS: Bacteria Urine None Seen (None Seen); Hyaline Casts Urine 0-2 /LPF (0-2); RBC Urine 0-2 /HPF (0-2); UACC Culture Trigger YES
== END 2023-05-06 17:28 | disposition home or self-care (01) ==
LOC: HO.LNP 17:27
PROVIDERS: Visit Provider Internal Medicine
DX: R30.0 Dysuria (principal); N39.0 Urinary tract infection, site not specified
CPT/HCPCS: 81001; 87086; 87147

== ENCOUNTER 2023-05-13 06:11 | Outpatient (REF) | payer BC, SELFPAY ==
[2023-05-13 06:38] LABS: MANUAL DIFF FLAG NO
[2023-05-13 07:12] LABS: Basophils Percent Auto 0.4 % (0-2); Eosinophils Absolute Auto 0.3 X10*3/uL (0.0-0.4); Eosinophils Percent Auto 4.2 % (0-4); Hematocrit 41.7 % (37.0-47.0); Hemoglobin 13.2 g/dl (12.0-16.0); Imm Gran Abs Auto 0.03 X10*3/uL (0.00-0.03); Imm Gran Pct Auto 0.4 % (0.0-0.4); Lymphocytes Absolute Auto 2.6 X10*3/uL (1.2-4.9); Lymphocytes Percent Auto 36.4 % (20-40); Mean Corpuscular HGB Conc 31.7 g/dl (31.0-35.0); Mean Corpuscular Hemoglobin 27.8 pg (27.0-33.0); Mean Corpuscular Volume 87.8 fL (80.0-98.0); Mean Platelet Volume 8.7 fL (9.4-12.3); Monocytes Absolute Auto 0.5 X10*3/uL (0.1-1.2); Monocytes Percent Auto 6.7 % (2-11); Neutrophils Absolute Auto 3.7 x10*3/uL (2.0-8.3); Neutrophils Percent Auto 51.9 % (45-73); Platelet Count 324 X10*3/uL (160-400); Red Blood Count 4.75 X10*6/uL (4.20-5.50); Red Cell Distribution Width 13.2 % (11.0-16.0); White Blood Count 7.1 X10*3/uL (4.8-10.8)
[2023-05-13 07:21] LABS: Estimated Average Glucose 126 mg/dL
[2023-05-13 07:48] LABS: Alanine Aminotransferase 22 U/L (0-31); Albumin Level 4.2 g/dL (3.5-5.0); Alkaline Phosphatase 103 U/L (39-117); Anion Gap 10 (12-20); Aspartate Amino Transferase 14 U/L (5-31); Bilirubin Total 0.2 mg/dL (0.0-1.0); Blood Urea Nitrogen 13 mg/dL (9-16); Calcium 10.5 mg/dL (8.4-10.2); Carbon Dioxide 26 mmol/L (22-29); Chloride 108 mmol/L (96-108); Cholesterol 177 mg/dL (<200); Estimated Glomerular Filt Rate > 60; Glucose Random 121 mg/dL (60-115); HDL Cholesterol 45 mg/dL (>40); LDL Cholesterol Calculated 108 mg/dL (<100); Potassium 4.4 mmol/L (3.3-5.1); Sodium 140 mmol/L (135-145); Total Protein 7.7 g/dL (6.5-8.0); Triglycerides 123 mg/dL (<150)
[2023-05-13 08:05] LABS: Free T4 (Free Thyroxine) 1.05 ng/dL (0.71-1.85); Thyroid Stimulating Hormone 2.74 uIU/mL (0.32-4.0); Vitamin D 25-OH Total 46.9 ng/mL (>30)
[2023-05-13 08:08] LABS: Folate 9.9 ng/mL (> or = 4.0); Vitamin B12 700 pg/mL (200-900)
[2023-05-13 09:08] LABS: Appearance Urine Clear; Color Urine Yellow; Glucose Urine UA Negative (Negative); Leukocyte Esterase Urine Moderate (2+) (Negative); Nitrite Urine Negative (Negative); PH 5.5 (5.0-9.0); Specific Gravity - Urine 1.015 (1.005-1.025); UMIC TRIGGER UA YES; Urine Blood Trace (Negative); Urine Ketones Negative (Negative); Urine Protein Negative (Neg-Trace)
[2023-05-13 09:11] LABS: Bacteria Urine None Seen (None Seen); Hyaline Casts Urine 0-2 /LPF (0-2); RBC Urine 0-2 /HPF (0-2)
== END 2023-05-13 06:12 | disposition home or self-care (01) ==
LOC: HO.LAB 06:11
PROVIDERS: PCP Internal Medicine; Visit Provider Internal Medicine
DX: E83.52 Hypercalcemia (principal); E78.00 Pure hypercholesterolemia, unspecified; R73.02 Impaired glucose tolerance (oral); R30.0 Dysuria; N39.0 Urinary tract infection, site not specified
CPT/HCPCS: 36415; 80053; 80061; 81001; 81003; 82306; 82607; 82746; 83036; 84439; 84443; 85025

== ENCOUNTER 2023-05-30 06:04 | Outpatient (REF) | payer BC, SELFPAY ==
[2023-06-01 15:44] LABS: Calcium, Ionized 5.5 mg/dL (4.7-5.5)
== END 2023-05-30 06:05 | disposition home or self-care (01) ==
LOC: HO.LAB 06:04
PROVIDERS: PCP Internal Medicine; Visit Provider Internal Medicine
DX: E83.52 Hypercalcemia (principal)
CPT/HCPCS: 36415; 82330; 83970

== ENCOUNTER 2023-07-18 08:09 | Emergency (ER) | payer BC, SELFPAY ==
[2023-07-18 08:24] VITALS: BP 127/86; PULSE 102; RESP 16; TEMP 36.1; O2SAT 96; BMI 30.7
[2023-07-18 08:48] LABS: MANUAL DIFF FLAG NO
[2023-07-18 08:52] LABS: Basophils Percent Auto 0.3 % (0-2); Eosinophils Percent Auto 0.7 % (0-4); Hematocrit 43.9 % (37.0-47.0); Hemoglobin 14.2 g/dl (12.0-16.0); Imm Gran Abs Auto 0.02 X10*3/uL (0.00-0.03); Imm Gran Pct Auto 0.3 % (0.0-0.4); Lymphocytes Absolute Auto 2.4 X10*3/uL (1.2-4.9); Lymphocytes Percent Auto 39.9 % (20-40); Mean Corpuscular HGB Conc 32.3 g/dl (31.0-35.0); Mean Corpuscular Hemoglobin 27.3 pg (27.0-33.0); Mean Corpuscular Volume 84.3 fL (80.0-98.0); Mean Platelet Volume 8.5 fL (9.4-12.3); Monocytes Absolute Auto 0.6 X10*3/uL (0.1-1.2); Monocytes Percent Auto 10.4 % (2-11); Neutrophils Absolute Auto 2.9 x10*3/uL (2.0-8.3); Neutrophils Percent Auto 48.4 % (45-73); Platelet Count 272 X10*3/uL (160-400); Red Blood Count 5.21 X10*6/uL (4.20-5.50); Red Cell Distribution Width 12.7 % (11.0-16.0); White Blood Count 5.9 X10*3/uL (4.8-10.8)
[2023-07-18 09:04] LABS: Anion Gap 12 (12-20); Blood Urea Nitrogen 13 mg/dL (9-16); Calcium 10.5 mg/dL (8.4-10.2); Carbon Dioxide 28 mmol/L (22-29); Chloride 103 mmol/L (96-108); Creatinine Clr Calc Pharmacy 68.1; Estimated Glomerular Filt Rate > 60; Glucose Random 128 mg/dL (60-115); Potassium 3.6 mmol/L (3.3-5.1); Sodium 139 mmol/L (135-145)
[2023-07-18 09:07] LABS: IDNOW Serial# 152EDE1D; Influenza A Positive (Negative); Influenza B2 Negative (Negative)
[2023-07-18 09:08] LABS: COVID-19 Test Negative (Negative); IDNOW Serial# 6674DD1D
[2023-07-18 15:53] LABS: Appearance Urine Cloudy; Color Urine Dark Yellow; Glucose Urine UA Negative (Negative); Leukocyte Esterase Urine Negative (Negative); Nitrite Urine Negative (Negative); PH 5.5 (5.0-9.0); Specific Gravity - Urine >= 1.030 (1.005-1.025); UMIC TRIGGER UACC YES; Urine Blood Negative (Negative); Urine Ketones Negative (Negative); Urine Protein 30 (1+) mg/dL (Neg-Trace)
[2023-07-18 16:02] LABS: Bacteria Urine None Seen (None Seen); Calcium Oxalate Crystals Urine Present; RBC Urine 0-2 /HPF (0-2); WBC Urine 0-5 /HPF (0-5)
--- NOTE | 2023-07-18 18:57 | ED_ITS ---
HPI - General Adult General Chief complaint: General Medical Stated complaint: kidney pain Time Seen by Provider: 07/18/23 18:57 Source: patient Mode of arrival: ambulatory Limitations: no limitations History of Present Illness HPI narrative: Patient is a 58 year old assigned female at with a history of HTN presenting to the emergency department today with bilateral flank pain, headache, nausea, and a cough. Patient states that over the last week she has had bilateral flank pain, nausea, headache, and a cough. Patient denies any dizziness, lightheadedness, abdominal pain, vomiting, fever, chills, blurry vision, double vision, loss of vision, chest pain, difficulty breathing, shortness of breath, back pain, night sweats, pain with urination, increased urinary frequency, increased urinary urgency, blood in her urine or stool, syncope or a near syncopal episode, recent trauma or falls, bowel incontinence, bladder incontinence, bowel retention, bladder retention, or any other complaints at this time. Onset (ago): week(s) (1) Severity: mild Relieving factors: none Exacerbating factors: none Associated symptoms: cough and nausea/vomiting Treatments prior to arrival: none Related Data Previous Rx's Medication Instructions Recorded linaclotide 145 mcg capsule 145 mcg PO DAILY #90 caps 08/20/22 (Linzess) pantoprazole 40 mg tablet,delayed 40 mg PO DAILY@0630 #90 tabs 09/03/22 release simvastatin 10 mg tablet 10 mg PO BEDTIME #90 tabs 09/03/22 simethicone 125 mg capsule (Gas 125 mg PO TID-QID PRN abdominal 11/09/22 Relief (simethicone)) distention #120 caps acetaminophen 500 mg tablet 1,000 mg (2 x 500 mg) PO Q6H PRN 03/18/23 (Tylenol Extra Strength) fever or pain #20 tabs losartan 50 mg tablet 50 mg PO DAILY #30 tabs 05/06/23 sulfamethoxazole 800 1 tab PO BID #14 tabs 05/20/23 mg-trimethoprim 160 mg tablet (Bactrim DS) naproxen 500 mg tablet 500 mg PO BID 7 days #14 tabs 07/18/23 ondansetron 4 mg disintegrating 4 mg PO Q8H 3 days #9 tabs 07/18/23 tablet oseltamivir 75 mg capsule (Tamiflu) 75 mg PO DAILY 5 days #5 caps 07/18/23 Allergies Allergy/AdvReac Type Severity Reaction Status Date / Time lisinopril AdvReac Intermediate Cough Unverified 05/06/23 16:03 Review of Systems 2 Constitutional: Constitutional: Reports no additional constitutional complaints, Denies chills, Denies fever(s), Reports headache(s) and Denies night sweats Eyes: Eyes: Reports no additional eye complaints, Denies blurry vision, Denies change in vision, Denies diplopia, Denies eye discharge, Denies loss of vision and Denies eye pain ENT: Denies dizziness and Reports headache(s) Cardiovascular: Cardiovascular: Reports no additional cardiovascular complaints, Denies chest pain, Denies lightheadedness, Denies Loss of Consciousness and Denies dyspnea Respiratory: Respiratory: Reports no additional respiratory complaints, Reports cough and Denies dyspnea Gastrointestinal: Gastrointestinal: Reports no additional gastrointestinal complaints, Denies abdominal pain, Denies melena, Denies hematochezia, Denies change in bowel habits, Denies change in stool character and Reports nausea Genitourinary: Genitourinary: Denies hematuria, Denies urinary frequency, Denies dysuria, Reports flank pain, Denies urinary incontinence, Denies urinary hesitancy and Denies urinary urgency Musculoskeletal: Musculoskeletal: Reports no additional musculoskeletal complaints, Denies numbness and Denies tingling Neurologic: Denies dizziness, Reports headache(s), Denies loss of vision, Denies numbness and Denies tingling Psychiatric: Psychiatric: Reports no additional psychiatric complaints Endocrine: Endocrine: Reports no additional endocrine complaints Hematologic/Lymphatic: Hematologic/Lymphatic: Reports no additional hematologic/lymphatic complaints Allergic/Immunologic: Allergic/Immunologic: Reports no additional allergic/immunologic complaints [facility] Past Medical History Attestation statement: The following information was validated with the patient. Source: old records reviewed and nursing notes reviewed Medical History Dysuria Hypertension Hospital discharge follow-up Sigmoid diverticulitis Hypokalemia Thrush Diverticulitis Tongue burning sensation Tongue abnormality Diverticulitis large intestine w/o perforation or abscess w/o bleeding Anemia Acute allergic reaction Fatty liver Irritable bowel syndrome History of renal calculi Hypercholesterolemia GERD (gastroesophageal reflux disease) Obesity (BMI 30-39.9) Surgical History Hx of colonoscopy History of esophagogastroduodenoscopy (EGD) Hx of arthroscopy of left knee Hx of arthroscopy of right knee History of lithotripsy Hx of appendectomy H/O tubal ligation History of abdominal hysterectomy Family History Family History Father Brain tumor Mother Hypertension CVD (cardiovascular disease) Social History Social History Household Members: Spouse Housing: House Do you presently have visiting nurse or other home services: No Alcohol intake: never Patient Tobacco Use Status: Never used Tobacco e-Cigarette/Vaping Use: Never Used Second Hand Smoke Exposure: No Advance Directives: No Advance Directives Information Provided: No service: No Current occupational status: employed Cognitive needs: No Hearing needs: No Vision needs: Yes Physical Exam ED Vital Signs: Vital Signs - 24 hr 07/18/23 08:24 Temperature 96.9 F Pulse Rate 102 H Respiratory Rate 16 Blood Pressure 127/86 Pulse Oximetry 96 Oxygen Delivery Method Room Air BMI result Body Mass Index 30.7 Const General: cooperative, no acute distress, alert and awake Nutritional Appearance: well nourished Orientation/consciousness: patient oriented x3 Limitations: no limitations HENMT Head: Yes normal to inspection and Yes atraumatic Ears: hearing grossly normal bilaterally and external ears normal General nose exam: Normal external nose present, no nasal discharge noted and no epistaxis Face and sinus: Yes normal facial exam, No abrasion and No laceration Mouth: Normal oral and palatal mucosa present, no drooling and no muffled voice Eyes General: appearance normal, both eyes and all related structures Periorbital: periorbital findings normal Eyelids: Yes eyelids normal Conjunctivae: conjunctivae normal Pupils: Equal, round and reactive pupils present EOM: EOMs intact bilaterally Neck Neck: Yes normal visual inspection, Yes full ROM and Yes no lymphadenopathy Chest Chest palpation & inspection: normal inspection of the chest Resp Effort & Inspection: normal respiratory effort and able to speak in complete sentences GI Inspection: Yes normal to inspection Neuro General: patient oriented x3 and moves all extremities Cranial nerves: Yes Equal, round and reactive pupils present Cognition (Neuro): normal cognition Motor exam (neuro): 5/5 motor strength present throughout Sensory Exam: Normal double simultaneous stimulation for sensation Coordination: [id number] test normal Extrem General: Yes normal to inspection, Yes full ROM and Yes capillary refill normal Psych Appearance: grossly normal Mental Status: mental status grossly normal Affect: normal affect Attitude: cooperative Thought process: Normal thought process present Thought content: Normal thought content present Insight: Good insight present (Psych) Medications Administered Discontinued Medications Generic Name Dose Route Start Last Admin Trade Name Jona PRN Reason Stop Dose Admin Ketorolac Tromethamine 15 mg 07/18/23 19:00 07/18/23 19:30 Ketorolac Tromethamine 15 Mg/Ml Vial IM 07/18/23 19:01 15 mg ONCE ONE Administration Ondansetron HCl 4 mg 07/18/23 19:18 07/18/23 19:30 Ondansetron Odt 4 Mg Tab.Rapdis TRANSLINGU 07/18/23 19:19 4 mg ONCE ONE Administration Medical Decision Making Medical Decision Making [facility] Narrative: Patient is a 58 year old assigned female at with a history of HTN presenting to the emergency department today with bilateral flank pain, a headache, cough, and nausea. Patient's physical exam was unremarkable. Patient's blood work was unremarkable. Patient's urine showed evidence of a possible kidney stone but no evidence of infection. Patient's Influenza test was positive. I explained my physical exam findings as well as all test results to the patient. I answered all questions asked by the patient. I stressed the importance of the patient taking her medication as prescribed. I stressed the importance of the patient following up with her primary care provider. I stressed the importance of the patient returning to the emergency department immediately if her symptoms were to worsen or if she were to develop any dizziness, shortness of breath, difficulty breathing, chest pain, blurry vision, loss of vision, nausea, vomiting, abdominal pain, fever, chills, back pain, or any other complaints. Patient verbalized agreement and understanding with this treatment plan and discharge. Differential Diagnosis Differential Diagnoses: The differential diagnosis associated with the presentation includes UTI Kidney stone Influenza RSV COVID-19 Admission/Observation Consideration of admission/observation: Escalation of care including admission/observation considered Patient would have been admitted to the hospital had her work up had any findings where hospital admission was appropriate and her clinical presentation warranted hospital admission. Lab Data [facility] Lab Attestation statement: I reviewed the patient's lab results. My interpretation of these results are in the [facility] Rationale portion of this note. 07/18/23 08:43 07/18/23 08:43 Labs: Lab Results 07/18/23 07/18/23 07/18/23 Range/Units 08:41 08:43 15:39 WBC 5.9 (4.8-10.8) X10*3/uL RBC 5.21 (4.20-5.50) X10*6/uL Hgb 14.2 (12.0-16.0) g/dl Hct 43.9 (37.0-47.0) % MCV 84.3 (80.0-98.0) fL MCH 27.3 (27.0-33.0) pg MCHC 32.3 (31.0-35.0) g/dl RDW 12.7 (11.0-16.0) % Plt Count 272 (160-400) X10*3/uL MPV 8.5 L (9.4-12.3) fL Immature Gran % (Auto) 0.3 (0.0-0.4) % Neut % (Auto) 48.4 (45-73) % Lymph % (Auto) 39.9 (20-40) % [place] % (Auto) 10.4 (2-11) % Eos % (Auto) 0.7 (0-4) % Baso % (Auto) 0.3 (0-2) % Lymph # (Auto) 2.4 (1.2-4.9) X10*3/uL [place] # (Auto) 0.6 (0.1-1.2) X10*3/uL Eos # (Auto) 0.0 (0.0-0.4) X10*3/uL Baso # (Auto) 0.0 (0.0-0.2) X10*3/uL Abs Immat Gran (auto) 0.02 (0.00-0.03) X10*3/uL Absolute Neuts (auto) 2.9 (2.0-8.3) x10*3/uL Absolute Nucleated RBC 0.000 (0.0-0.012) X10*3/uL Nucleated RBC % (auto) 0.0 (0.0-0.2) /100WBC Sodium 139 (135-145) mmol/L Potassium 3.6 (3.3-5.1) mmol/L Chloride 103 (96-108) mmol/L Carbon Dioxide 28 (22-29) mmol/L Anion Gap 12 (12-20) BUN 13 (9-16) mg/dL Creatinine 0.86 (0.5-1.4) mg/dL Estim Creat Clear Calc 68.1 Estimated GFR > 60 Random Glucose 128 H (60-115) mg/dL Calcium 10.5 H (8.4-10.2) mg/dL Urine Color Dark Yellow Urine Appearance Cloudy Urine pH 5.5 (5.0-9.0) Ur Specific [place] >= 1.030 H (1.005-1.025) Urine Protein 30 (1+) H (Neg-Trace) mg/dL Urine Glucose (UA) Negative (Negative) mg/dL Urine Ketones Negative (Negative) mg/dL Urine Blood Negative (Negative) Urine Nitrite Negative (Negative) Ur Leukocyte Esterase Negative (Negative) Urine RBC 0-2 (0-2) /HPF Urine WBC 0-5 (0-5) /HPF Ur Squamous Epith Cells 11-20 (0-2) /HPF Calcium Oxalate Crystal Present Urine Bacteria None Seen (None Seen) Hyaline Casts 3-5 (0-2) /LPF COVID-19 (VASHTI) Negative (Negative) COVID-19 Clin Com See Note Influenza Type A (MAGI) Positive A (Negative) Influenza Type B (MAGI) Negative (Negative) Influenza A & B Note See Note Tests considered The following testing was considered but not selected: A CT scan of the abdomen/pelvis was considered. However, the patient's current clinical presentation and work up did not warrant it. I explained this to the patient who verbalized understanding and agreement. Prescription Management I considered prescription management with: Antiviral (patient prescribed tamiflu.) Discharge Plan Discharge Clinical Impression: Influenza Patient Disposition: Home, Self-Care Instructions: Influenza (DC) Additional Instructions: You tested positive for influenza. Your labs are reassuring. There is NO evidence of kidney injury. Your urine shows NO evidence of infection. Follow up with your primary care provider. Return to the emergency department immediately if your symptoms worsen or if you develop any dizziness, shortness of breath, difficulty breathing, chest pain, blurry vision, loss of vision, nausea, vomiting, abdominal pain, fever, chills, back pain, or any other complaints. Prescriptions: New oseltamivir [Tamiflu] 75 mg capsule 75 mg PO DAILY 5 Days Qty: 5 0RF ondansetron 4 mg tablet,disintegrating 4 mg PO Q8H 3 Days Qty: 9 0RF naproxen 500 mg tablet 500 mg PO BID 7 Days Qty: 14 0RF No Action pantoprazole 40 mg tablet,delayed release (DR/EC) 40 mg PO DAILY@0630 Qty: 90 3RF simvastatin 10 mg tablet 10 mg PO BEDTIME Qty: 90 3RF sulfamethoxazole-trimethoprim [Bactrim DS] 800-160 mg tablet 1 tab PO BID Qty: 14 0RF acetaminophen [Tylenol Extra Strength] 500 mg tablet 1,000 mg PO Q6H PRN (Reason: fever or pain) Qty: 20 0RF losartan 50 mg tablet 50 mg PO DAILY Qty: 30 3RF Linzess 145 mcg capsule 145 mcg PO DAILY Qty: 90 2RF simethicone [Gas Relief (simethicone)] 125 mg capsule 125 mg PO TID-QID PRN (Reason: abdominal distention) Qty: 120 2RF Referrals: Po,Isaac Sequeira MD [Primary Care Provider] - Stand Alone Forms: Work/School Release Interventions: ED Discharge Assessment Last Done: 07/18/23 19:38 Discharge Date/Time: 07/18/23 19:39 Print Language: Maltese
[2023-07-18] MEDS: Ketorolac Tromethamine 15 MG/ML VIAL IM (19:30)
[2023-07-18] MEDS: Ondansetron ODT 4 MG TAB.RAPDIS TRANSLINGU (19:30)
== END 2023-07-18 19:39 | disposition home or self-care (01) ==
PROVIDERS: Emergency Provider Emergency Medicine Emergency Medical Services; PCP Internal Medicine
DX: J11.1 Influenza due to unidentified influenza virus with other respiratory manifestations (principal); I10 Essential (primary) hypertension; Z11.52 Encounter for screening for COVID-19
CPT/HCPCS: 80048; 81001; 85025; 87502; 87635; 96372; 99283; 99284; J1885

== ENCOUNTER 2023-07-26 15:03 | Outpatient (REF) | payer BC, SELFPAY ==
[2023-07-26 16:04] LABS: Appearance Urine Clear; Color Urine Yellow; Glucose Urine UA Negative (Negative); Leukocyte Esterase Urine Negative (Negative); Nitrite Urine Negative (Negative); Urine Blood Negative (Negative); Urine Ketones Negative (Negative); Urine Protein Negative (Neg-Trace)
== END 2023-07-26 15:04 | disposition home or self-care (01) ==
LOC: HO.LAB 15:03
PROVIDERS: PCP Internal Medicine; Visit Provider Internal Medicine
DX: R30.0 Dysuria (principal); N39.0 Urinary tract infection, site not specified
CPT/HCPCS: 81003

== ENCOUNTER 2023-08-02 15:15 | Outpatient (AMB) | payer BC, SELFPAY ==
[2023-08-02 15:30] VITALS: BP 134/72; PULSE 82; O2SAT 98; BMI 31.5
--- NOTE | 2023-08-02 15:30 | A.OFFPC_ITS ---
Vital Signs 08/02/23 15:30 Height 5 ft 2 in Weight 172 lb BMI 31.5 BP 134/72 Blood Pressure Location Lt brachial Position Sitting Pulse 82 Pulse Source Pulse Oximeter Pulse Oximetry (%) 98 Oxygen Delivery Method Room Air Intake Visit Reasons: pain in middle of abdomen/ pelvic pain Allergies lisinopril Adverse Reaction (Intermediate, Verified 08/02/23 15:30) Cough Tobacco use date assessed: 08/02/23 Dental Screening Dental Screen Date: 08/02/23 Did you have a dental visit in the last 12 months?: Yes Did you have a dental problem in the last 6 months where you did not have access to dental care?: No Was dental information given to patient?: Patient has dentist HPI pain in middle of abdomen/ pelvic pain HPI Details 58-year-old obese female with a history of diverticular disease impaired glucose tolerance hypercholesterolemia GERD hypertension constipation coming in for follow-up. Last seen in April 2023. Patient's colonoscopy is up-to-date August 2022 mammogram is up-to-date. Review of the notes June 2023 was in the emergency room for flank pain diagnosis of flu and was given Tamiflu. Review of the notes in May 2022 noted to have an hemoglobin A1c of 6.5. Patient does have diabetes mellitus but is controlled. PAtient just has surgery on the L eye for a growth 08/01/2023. PAtient also complains of having vaginal bleeding and lower abd pain PFSH Medical History (Updated 08/02/23 @ 16:09 by Isaac Field MD) Impaired glucose tolerance Dysuria Hypertension Hospital discharge follow-up Sigmoid diverticulitis Hypokalemia Thrush Diverticulitis Tongue burning sensation Tongue abnormality Diverticulitis large intestine w/o perforation or abscess w/o bleeding Anemia Acute allergic reaction Fatty liver Irritable bowel syndrome History of renal calculi Hypercholesterolemia GERD (gastroesophageal reflux disease) Obesity (BMI 30-39.9) Surgical History Hx of colonoscopy History of esophagogastroduodenoscopy (EGD) Hx of arthroscopy of left knee Hx of arthroscopy of right knee History of lithotripsy Hx of appendectomy H/O tubal ligation History of abdominal hysterectomy Family History (Updated 08/02/23 @ 15:31 by Savanah Perez CMA) Father Brain tumor Mother Hypertension CVD (cardiovascular disease) Social History Household Members: Spouse Housing: House Do you presently have visiting nurse or other home services: No Alcohol intake: never Patient Tobacco Use Status: Never used Tobacco e-Cigarette/Vaping Use: Never Used Second Hand Smoke Exposure: No service: No Current occupational status: employed Cognitive needs: No Hearing needs: No Vision needs: Yes Questionnaire PHQ-9 Over the last 2 weeks, how often have you been bothered by any of the following problems? 1. Little interest or pleasure in doing things: not at all 2. Feeling down, depressed, or hopeless: not at all 3. Trouble falling or staying asleep, or sleeping too much: not at all 4. Feeling tired or having little energy: not at all 5. Poor appetite or overeating: not at all 6. Feeling bad about yourself - or that you are a failure or have let yourself or your family down: not at all 7. Trouble concentrating on things, such as reading the newspaper or watching television: not at all 8. Moving or speaking so slowly that other people could have noticed. Or the opposite - being so fidgety or restless that you have been moving around a lot more than usual: not at all 9. Thoughts that you would be better off or of hurting yourself in some way: not at all Total score: 0 Depression Screening Interpretation: Negative Depression Screening Done: Yes Source: Developed by Drs. Alan Pang, Kay Garza, Jesús Berger and colleagues, with an educational teajs from [employer]. Thrive Questionnaire Date Thrive assessed: 08/02/23 I am a: Patient What is your living situation today?: I have a steady place to live Within the past 12 months, did the food you bought not last and you didn't have the money to get more?: Never true Within the past 12 months, did you worry whether your food would run out before you got money to buy more?: Never true Do you have trouble paying for medicines?: No Do you have trouble getting transportation to medical appointments?: No Do you have trouble paying your heating and electricity bill?: No Do you have trouble taking care of your child, family member or friend?: No Do you have trouble with day-to-day activities such as bathing, preparing meals, shopping, managing finances, etc.?: No Are you currently unemployed and looking for a job?: No Are you interested in more education?: No Currently or been in a relationship where the following occur: no concerns reported THRIVE Score: 0 AUDIT C Alcohol Use Questionnaire (AUDIT-C) 1. How often do you have a drink containing alcohol?: Never 3. How often do you have six or more drinks on one occasion?: Never Total Score: 0 Score Reviewed/Action Taken: No JENNIFER-7 AMB Questionnaire JENNIFER-7 Date JENNIFER - 7 assessed: 08/02/23 Feeling nervous, anxious, or on edge: 0 = Not at all Not being able to stop or control worryin = Not at all Worrying too much about different things: 0 = Not at all Trouble relaxin = Not at all Being so restless that it is hard to sit still: 0 = Not at all Becoming easily annoyed or irritable: 0 = Not at all Feeling afraid as if something awful might happen: 0 = Not at all Total JENNIFER-7 score (0-4 normal; 5-9 mild; 10-14 moderate; 15-21 severe): 0 Source: Developed by Drs. Alan Pang, Kay Garza, Jesús Berger and colleagues, with an educational tejas from [employer]. Physical exam (Primary Care) Vital Signs: Last Vital Signs Pulse 82 08/02/23 15:30 BP 134/72 08/02/23 15:30 Pulse Ox 98 08/02/23 15:30 Oxygen Delivery Method Room Air 08/02/23 15:30 BMI result Body Mass Index 31.5 Tobacco/Smoking Status: Tobacco use Status Tobacco use date assessed 08/02/23 08/02/23 15:39 Patient Tobacco Use Status Never used Tobacco 08/02/23 15:39 e-Cigarette/Vaping Use Never Used 08/02/23 15:39 PHQ-9: PHQ-9 Score PHQ-9: Total score 0 08/02/23 16:02 Depression Screening Interpretation: Negative Thrive Assessment: Date of Thrive Assessment Date Thrive assessed 08/02/23 08/02/23 15:39 Currently or been in a relationship where the following occur: no concerns reported Const General: alert; No acute distress Eyes Conjunctivae: conjunctivae normal Resp Auscultation: clear to auscultation bilaterally Cardio Rate: regular rate Rhythm: regular rhythm GI Inspection: Yes normal to inspection Extrem General: Yes normal to inspection and No edema Assessment and Plan Assessment & Plan (1) Type 2 diabetes mellitus with hyperglycemia: Code(s): E11.65 - Type 2 diabetes mellitus with hyperglycemia Plan: Decrease the amount of carbohydrate intake, pasta, bread, rice and potatoes are all sugar and that is aside from all the sweet stuff, remember that fruits are good but they are Sweet also. Hemoglobin A1c goal of less than 6.5. (2) Hypertension: Code(s): I10 - Essential (primary) hypertension Qualifiers: Hypertension type: primary hypertension Qualified Code(s): I10 - Essential (primary) hypertension Plan: Continue with blood pressure medication. Decrease salt intake and exercise patient has losartan 50 mg once a day (3) Hypercholesterolemia: Code(s): E78.00 - Pure hypercholesterolemia, unspecified Plan: Avoid fried foods, chicken skin, eggs, butter margarine, pastries and meat. Be it pork or beef they have a lot of cholesterol LDL goal of less than 100 and triglyceride of less than 150. Patient needs to have blood work done (4) GERD (gastroesophageal reflux disease): Code(s): K21.9 - Gastro-esophageal reflux disease without esophagitis Qualifiers: Esophagitis presence: without esophagitis Qualified Code(s): K21.9 - Gastro-esophageal reflux disease without esophagitis Plan: Avoid the foods that causes that usually spicy foods, tomato products, juices, coffee, soda and foods that your sensitive to. After eating do not lie down, allow 3-4 hours before in lie down. And keep the head of bed above 30 degrees to avoid the acid from going up. 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
== END 2023-08-02 16:19 | disposition home or self-care (01) ==
PROVIDERS: PCP Internal Medicine; Visit Provider Internal Medicine
DX: E11.65 Type 2 diabetes mellitus with hyperglycemia (principal); I10 Essential (primary) hypertension; E78.00 Pure hypercholesterolemia, unspecified; K21.9 Gastro-esophageal reflux disease without esophagitis; N93.9 Abnormal uterine and vaginal bleeding, unspecified
CPT/HCPCS: 99214

== ENCOUNTER 2023-08-16 13:57 | Outpatient (REF) | payer BC, SELFPAY ==
--- NOTE | ~2023-08-16 | US_ITS ---
EXAMINATION: US PELVIS CLINICAL INFORMATION: Abnormal bleeding, postmenopausal, hysterectomy. COMPARISON: CT abdomen and pelvis 06/22/2022. TECHNIQUE: Ultrasound of the pelvis is performed using both transabdominal and transvaginal transducers along with Doppler. Transvaginal imaging is performed due to inadequate visualization transabdominally. FINDINGS: The uterus is surgically absent. Bilateral ovaries are poorly visualized. Limited visualization due to bowel gas.. The structure felt to possibly represent the right ovary was poorly visualized and measures approximately 1.9 x 1.8 x 1.5 cm, volume 1.1 mL. The structure felt to possibly represent the left ovary was poorly visualized and measures 2.8 x 1.8 x 1.9 cm, volume 5.0 mL. US/US pelvic and transvaginal IMPRESSION: 1. Uterus is surgically absent. 2. Bilateral ovaries are poorly visualized. Limited visualization due to bowel gas. CT scan could be considered for better visualization.
== END 2023-08-16 13:58 | disposition home or self-care (01) ==
LOC: HO.US 13:57
PROVIDERS: PCP Internal Medicine; Visit Provider Internal Medicine
DX: N93.9 Abnormal uterine and vaginal bleeding, unspecified (principal)
CPT/HCPCS: 76830; 76856

== ENCOUNTER 2023-08-19 06:16 | Outpatient (REF) | payer BC, SELFPAY ==
[2023-08-19 08:13] LABS: Creatinine Urine 123.03 mg/dL; Microalbum/Creatinine Ratio Ur 10.5 ug/mg cr (<30)
== END 2023-08-19 06:17 | disposition home or self-care (01) ==
LOC: HO.LAB 06:16
PROVIDERS: PCP Internal Medicine; Visit Provider Internal Medicine
DX: E11.65 Type 2 diabetes mellitus with hyperglycemia (principal)
CPT/HCPCS: 82043; 82570

== ENCOUNTER 2023-09-09 10:24 | Emergency (ER) | payer BC, SELFPAY ==
[2023-09-09 10:27] VITALS: BP 150/93; PULSE 91; RESP 18; TEMP 36.6; O2SAT 98; BMI 31.1
--- NOTE | 2023-09-09 10:33 | PC.NURSE ---
resting, no distress, breathing well. reports swelling to r face/right neck: none noted on exam. pt reports it feels like there is a ball there and tender to touch. talking w/o distress.
--- NOTE | 2023-09-09 10:48 | ED.URI ---
HPI - URI/Sore Throat General Chief Complaint: General Medical Stated Complaint: R Side Facial Swelling Sore Throat Time Seen by Provider: 09/09/23 10:44 Source: patient Mode of arrival: ambulatory Limitations: no limitations History of Present Illness HPI Narrative: patient is a 58-year-old female who presents emergency department for evaluation of 3 days of sore throat and subjective swelling to the right submandibular region. Worsening over the past 2 days. Tried Tylenol at home without improvement. Denies any sick contacts. Denies fevers, chills, inability to swallow, cough, shortness of breath, chest pain, neck pain, headache. Related Data Previous Rx's ?Medication ?Instructions ?Recorded linaclotide 145 mcg capsule 145 mcg PO DAILY #90 caps 08/20/22 (Linzess) pantoprazole 40 mg tablet,delayed 40 mg PO DAILY@0630 #90 tabs 09/03/22 release simvastatin 10 mg tablet 10 mg PO BEDTIME #90 tabs 09/03/22 simethicone 125 mg capsule (Gas 125 mg PO TID-QID PRN abdominal 11/09/22 Relief (simethicone)) distention #120 caps acetaminophen 500 mg tablet 1,000 mg (2 x 500 mg) PO Q6H PRN 03/18/23 (Tylenol Extra Strength) fever or pain #20 tabs naproxen 500 mg tablet 500 mg PO BID 7 days #14 tabs 07/18/23 ondansetron 4 mg disintegrating 4 mg PO Q8H 3 days #9 tabs 07/18/23 tablet losartan 50 mg tablet 50 mg PO DAILY #30 tabs 07/28/23 Allergies Allergy/AdvReac Type Severity Reaction Status Date / Time lisinopril AdvReac Intermediate Cough Verified 09/09/23 10:29 Review of Systems Review of Systems: Yes all other systems are reviewed and are negative PMFSH Past Medical History Attestation statement: The following information was validated with the patient. Source: old records reviewed Medical History Impaired glucose tolerance Dysuria Hypertension Hospital discharge follow-up Sigmoid diverticulitis Hypokalemia Thrush Diverticulitis Tongue burning sensation Tongue abnormality Diverticulitis large intestine w/o perforation or abscess w/o bleeding Anemia Acute allergic reaction Fatty liver Irritable bowel syndrome History of renal calculi Hypercholesterolemia GERD (gastroesophageal reflux disease) Obesity (BMI 30-39.9) Surgical History Hx of colonoscopy History of esophagogastroduodenoscopy (EGD) Hx of arthroscopy of left knee Hx of arthroscopy of right knee History of lithotripsy Hx of appendectomy H/O tubal ligation History of abdominal hysterectomy Family History Family History (Updated 08/02/23 @ 15:31 by Savanah Perez CMA) Father Brain tumor Mother Hypertension CVD (cardiovascular disease) Social History Social History Household Members: Spouse Housing: House Do you presently have visiting nurse or other home services: No Alcohol intake: never Patient Tobacco Use Status: Never used Tobacco Smoked in Last 30 Days: No e-Cigarette/Vaping Use: Never Used Second Hand Smoke Exposure: No Use of substances other than those prescribed or required for medical reasons: No Advance Directives: No Advance Directives Information Provided: Yes service: No Current occupational status: employed Cognitive needs: No Hearing needs: No Vision needs: Yes Physical Exam Vital Signs: Vital Signs: Last Vital Signs Temp 98 F 09/09/23 12:26 Pulse 83 09/09/23 12:26 Resp 18 09/09/23 12:26 BP 153/87 H 09/09/23 12:26 Pulse Ox 97 09/09/23 12:26 O2 Del Method Room Air 09/09/23 12:26 BMI result Body Mass Index 31.1 Appearance: Alert.?Oriented to person, place and time. No acute distress.?Normal affect. Eyes: Pupils equal, round and reactive to light.? ENT: TM normal bilaterally. Pharynx normal Erythematous, 2+ tonsillar hypertrophy bilaterally. No trismus. No drooling. No exudates. Uvula is midline.? Neck: Normal inspection.? Neck supple.?? Right submandibular adenopathy. full range of motion. CVS: Heart sounds normal. Normal heart rate and rhythm.? Pulses normal.?? Respiratory: No respiratory distress.? Lung sounds clear to auscultation bilaterally?? Skin: Skin warm and dry.? Normal skin color.? ? Extremities: No lower extremity edema.? Neuro: Moves all extremities spontaneously. Sensation intact bilaterally. No motor deficits. Ambulates with normal steady gait. Medical Decision Making Medical Decision Making [facility] Narrative: Patient is a 58-year-old female presenting for evaluation of sore throat COVID-19 testing _. Influenza testing _. strep a testing _, At this time history and physical exam not consistent with peritonsillar or retropharyngeal abscess, pneumonia. Well-appearing, nontoxic, afebrile, no tachycardia or tachypnea/hypoxia. Speaking clear full sentences, ambulatory with steady gait. Discussed conservative treatment including rest, hydration, Tylenol/ibuprofen as needed for fever and body aches, saline nasal spray, humidifier, [id number]-[id number]-nflivyw cold medication. Advised to follow-up with primary care provider as needed, discussed reasons to return back to the emergency department. All questions were answered. Patient discharged home in stable condition. Differential Diagnosis Differential Diagnoses: The differential diagnosis associated with the presentation includes ( See narrative above) Admission/Observation Consideration of admission/observation: Escalation of care including admission/observation considered ( see narrative above) Lab Data [facility] Lab Attestation statement: I reviewed the patient's lab results. ( see narrative above) Labs: Lab Results 09/09/23 Range/Units 10:59 Influenza Type A (PCR) NEGATIVE (Negative) Influenza Type B (PCR) NEGATIVE (Negative) RSV RNA Qual (PCR) NEGATIVE (Negative) SARS-CoV-2 RNA (RT-PCR) NEGATIVE (Negative) S. pyogenes GrpA MAGI Negative (Negative) Prescription Management I considered prescription management with: Pain Medication ( acetaminophen/ibuprofen) Discharge Plan Discharge Clinical Impression: Pharyngitis Patient Disposition: Home, Self-Care Instructions: Pharyngitis (ED) Additional Instructions: testing today for COVID/flu/RSV is negative. You were also checked for strep which is a bacterial infection of the throat this is negative. You may trial throat lozenges, Chloraseptic throat spray, Tylenol/ ibuprofen, warm salt water gargles to help with the pain. Return back to emergency department if you develop new or worsening symptoms or concerns. Follow-up with your primary care provider Prescriptions: No Action pantoprazole 40 mg tablet,delayed release (DR/EC) 40 mg PO DAILY@0630 Qty: 90 3RF simvastatin 10 mg tablet 10 mg PO BEDTIME Qty: 90 3RF losartan 50 mg tablet 50 mg PO DAILY Qty: 30 3RF acetaminophen [Tylenol Extra Strength] 500 mg tablet 1,000 mg PO Q6H PRN (Reason: fever or pain) Qty: 20 0RF ondansetron 4 mg tablet,disintegrating 4 mg PO Q8H 3 Days Qty: 9 0RF naproxen 500 mg tablet 500 mg PO BID 7 Days Qty: 14 0RF Linzess 145 mcg capsule 145 mcg PO DAILY Qty: 90 2RF simethicone [Gas Relief (simethicone)] 125 mg capsule 125 mg PO TID-QID PRN (Reason: abdominal distention) Qty: 120 2RF Referrals: Po,Isaac Sequeira MD [Primary Care Provider] - Interventions: ED Discharge Assessment Last Done: 09/09/23 12:26 Discharge Date/Time: 09/09/23 12:26 Print Language: [place]
[2023-09-09 11:17] LABS: IDNOW Serial# 08D9AD1C; Strep A Nucleic Acid Negative (Negative)
[2023-09-09 11:44] LABS: Influenza A PCR NEGATIVE (Negative); Influenza B PCR NEGATIVE (Negative); Resp Syncy Virus RNA Qual PCR NEGATIVE (Negative); SARS COV2 PCR INHOUSE NEGATIVE (Negative)
[2023-09-09 12:25] VITALS: BP 153/87; PULSE 83; RESP 18; TEMP 36.6; O2SAT 97
[2023-09-09 12:26] VITALS: BP 153/87; PULSE 83; RESP 18; TEMP 36.6; O2SAT 97
== END 2023-09-09 12:26 | disposition home or self-care (01) ==
PROVIDERS: Nurse Practitioner Family; Emergency Provider Emergency Medicine; PCP Internal Medicine
DX: J02.9 Acute pharyngitis, unspecified (principal); I10 Essential (primary) hypertension; Z03.818 Encounter for observation for suspected exposure to other biological agents ruled out
CPT/HCPCS: 0241U; 87651; 99283; 99284

== ENCOUNTER 2023-09-30 13:16 | Outpatient (AMB) | payer BC, SELFPAY ==
[2023-09-30 13:19] VITALS: BP 142/86; PULSE 94; O2SAT 97; BMI 31.0
--- NOTE | 2023-09-30 13:19 | MHC.PC.OV ---
Vital Signs 09/30/23 13:19 09/30/23 13:54 Height 5 ft 2 in Weight 169 lb 6 oz BMI 31.0 BP 142/86 H 134/80 Blood Pressure Location Lt brachial Lt brachial Position Sitting Sitting Pulse 94 Pulse Source Pulse Oximeter Pulse Oximetry (%) 97 Oxygen Delivery Method Room Air Intake Visit Reasons: 2M. F/U-Medications Event Marketing Coordinator Required: No Accompanied by: Self / Same As Patient Allergies lisinopril Adverse Reaction (Intermediate, Verified 09/30/23 13:20) Cough Tobacco use date assessed: 08/02/23 Dental Screening Dental Screen Date: 08/02/23 HPI 2M. F/U-Medications HPI Details 58-year-old obese female with controlled diabetes mellitus hypertension hypercholesterolemia GERD last seen in July 2023. Colonoscopy is up-to-date August 2022. Mammogram is up-to-date May 2023. Noted ER visit in August for sore throat diagnosis of pharyngitis conservative management. [facility] Medical History Impaired glucose tolerance Dysuria Hypertension Hospital discharge follow-up Sigmoid diverticulitis Hypokalemia Thrush Diverticulitis Tongue burning sensation Tongue abnormality Diverticulitis large intestine w/o perforation or abscess w/o bleeding Anemia Acute allergic reaction Fatty liver Irritable bowel syndrome History of renal calculi Hypercholesterolemia GERD (gastroesophageal reflux disease) Obesity (BMI 30-39.9) Surgical History Hx of colonoscopy History of esophagogastroduodenoscopy (EGD) Hx of arthroscopy of left knee Hx of arthroscopy of right knee History of lithotripsy Hx of appendectomy H/O tubal ligation History of abdominal hysterectomy Family History (Updated 08/02/23 @ 15:31 by Savanah Perez CMA) Father Brain tumor Mother Hypertension CVD (cardiovascular disease) Social History Household Members: Spouse Housing: House Do you presently have visiting nurse or other home services: No Alcohol intake: never Patient Tobacco Use Status: Never used Tobacco e-Cigarette/Vaping Use: Never Used Second Hand Smoke Exposure: No service: No Current occupational status: employed Cognitive needs: No Hearing needs: No Vision needs: Yes Questionnaire Thrive Questionnaire Date Thrive assessed: 08/02/23 JENNIFER-7 AMB Questionnaire JENNIFER-7 Date JENNIFER - 7 assessed: 08/02/23 Source: Developed by Drs. Alan Pang, Kay Garza, Jesús Berger and colleagues, with an educational tejas from [employer]. Physical exam (Primary Care) Vital Signs: Last Vital Signs Pulse 94 09/30/23 13:19 BP 142/86 H 09/30/23 13:19 Pulse Ox 97 09/30/23 13:19 Oxygen Delivery Method Room Air 09/30/23 13:19 BMI result Body Mass Index 31.0 Tobacco/Smoking Status: Tobacco use Status Tobacco use date assessed 08/02/23 09/30/23 13:20 Patient Tobacco Use Status Never used Tobacco 09/30/23 13:20 e-Cigarette/Vaping Use Never Used 09/30/23 13:20 Thrive Assessment: Date of Thrive Assessment Date Thrive assessed 08/02/23 09/30/23 13:20 Const General: alert; No acute distress Eyes Conjunctivae: conjunctivae normal Resp Auscultation: clear to auscultation bilaterally Cardio Rate: regular rate Rhythm: regular rhythm GI Inspection: Yes normal to inspection Extrem General: Yes normal to inspection and No edema Results AMB Hemoglobin A1c AMB Hemoglobin A1c 5.5 % Last Edit by FRAN Martins on 09/30/23 13:36 Results Reviewed Results Reviewed: Laboratory Last Values Hgb A1c (Clinic) 5.5 % (4.0-6.0) 09/30/23 13:25 Assessment and Plan Assessment & Plan (1) Type 2 diabetes mellitus with hyperglycemia: Code(s): E11.65 - Type 2 diabetes mellitus with hyperglycemia Plan: Decrease the amount of carbohydrate intake, pasta, bread, rice and potatoes are all sugar and that is aside from all the sweet stuff, remember that fruits are good but they are Sweet also. Hemoglobin A1c goal of less than 6.5. Patient is diet controlled (2) Hypertension: Code(s): I10 - Essential (primary) hypertension Qualifiers: Hypertension type: primary hypertension Qualified Code(s): I10 - Essential (primary) hypertension Plan: Continue with blood pressure medication. Decrease salt intake and exercise patient takes losartan 50 mg once a day (3) Hypercholesterolemia: Code(s): E78.00 - Pure hypercholesterolemia, unspecified Plan: Avoid fried foods, chicken skin, eggs, butter margarine, pastries and meat. Be it pork or beef they have a lot of cholesterol LDL goal of less than 100 and triglyceride of less than 150. Simvastatin 10 mg once a day will need blood work (4) GERD (gastroesophageal reflux disease): Code(s): K21.9 - Gastro-esophageal reflux disease without esophagitis Qualifiers: Esophagitis presence: without esophagitis Qualified Code(s): K21.9 - Gastro-esophageal reflux disease without esophagitis Plan: Avoid the foods that causes that usually spicy foods, tomato products, juices, coffee, soda and foods that your sensitive to. After eating do not lie down, allow 3-4 hours before in lie down. And keep the head of bed above 30 degrees to avoid the acid from going up. Orders: Orders AMB Hemoglobin A1c Today E11.65 - Type 2 diabetes mellitus with hyperglycemia Coding Level of Care Code Est Pt Level 4 (56069) Diagnoses Type 2 diabetes mellitus with hyperglycemia E11.65 Primary hypertension I10 Hypertension type: primary hypertension Hypercholesterolemia E78.00 Gastroesophageal reflux disease without esophagitis K21.9 Esophagitis presence: without esophagitis
[2023-09-30 13:54] VITALS: BP 134/80
== END 2023-09-30 14:02 | disposition home or self-care (01) ==
LOC: HO.HMGH 13:16
PROVIDERS: PCP Internal Medicine; Visit Provider Internal Medicine
DX: E11.65 Type 2 diabetes mellitus with hyperglycemia (principal); I10 Essential (primary) hypertension; E78.00 Pure hypercholesterolemia, unspecified; K21.9 Gastro-esophageal reflux disease without esophagitis
CPT/HCPCS: 83036; 99214

== ENCOUNTER 2023-11-01 08:57 | Outpatient (REF) | payer BC, SELFPAY | END 2023-11-01 08:58 | disposition home or self-care (01) | LOC: HO.LNP 08:57 | PROVIDERS: PCP Internal Medicine; Visit Provider Obstetrics & Gynecology | DX: N93.9 Abnormal uterine and vaginal bleeding, unspecified (principal) | CPT/HCPCS: 56605; 81002; 88305 ==

== ENCOUNTER 2023-11-01 08:57 | Outpatient (AMB) | payer BC, SELFPAY ==
--- NOTE | 2023-11-01 09:01 | MHC.OFFVIS ---
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 Last co testing was in 2009 was negative, no history of abnormal Pap smears, Last colonoscopy was 8 years ago according to the patient, no records available. Pelvic ultrasound done in 08/13 showed the following: The uterus is surgically absent. Bilateral ovaries are poorly visualized. Limited visualization due to bowel gas.. The structure felt to possibly represent the right ovary was poorly visualized and measures approximately 1.9 x 1.8 x 1.5 cm, volume 1.1 mL. The structure felt to possibly represent the left ovary was poorly visualized and measures 2.8 x 1.8 x 1.9 cm, volume 5.0 mL. Last mammogram was in 06/15 BI-RADS 1 at [facility] Medical History (Updated 11/01/23 @ 09:37 by John Paul Arriaga MD) Impaired glucose tolerance Dysuria Hypertension Hospital discharge follow-up Sigmoid diverticulitis Hypokalemia Thrush Diverticulitis Tongue burning sensation Tongue abnormality Diverticulitis large intestine w/o perforation or abscess w/o bleeding Anemia Acute allergic reaction Fatty liver Irritable bowel syndrome History of renal calculi Hypercholesterolemia GERD (gastroesophageal reflux disease) Obesity (BMI 30-39.9) Surgical History (Updated 11/01/23 @ 09:20 by John Paul Arriaga MD) Hx of colonoscopy History of esophagogastroduodenoscopy (EGD) Hx of arthroscopy of left knee Hx of arthroscopy of right knee History of lithotripsy Hx of appendectomy H/O tubal ligation History of abdominal hysterectomy Family History Father Brain tumor Mother Hypertension CVD (cardiovascular disease) Social History Household Members: Spouse Housing: House Do you presently have visiting nurse or other home services: No Alcohol intake: never Patient Tobacco Use Status: Never used Tobacco e-Cigarette/Vaping Use: Never Used Second Hand Smoke Exposure: No service: No Current occupational status: employed Cognitive needs: No Hearing needs: No Vision needs: Yes Female Reproductive History Menstrual control method: permanent sterilization Menopause type: surgical Total pregnancies: 3 Full term: 3 Number of Living Children: 3 Review of Systems Const All systems reviewed & are unremarkable except as noted in HPI and below Card Reports as per HPI and Reports no additional complaints Resp Reports as per HPI and Reports no additional complaints GI Reports as per HPI and Reports no additional complaints Reports as per HPI Physical Exam Vital Signs: Last Vital Signs BP 132/88 11/01/23 09:02 BMI result Body Mass Index 30.6 Const General: cooperative, healthy appearing and comfortable General: Yes bladder normal to palpation External Female Exam: No lesion Speculum Exam - Vagina: normal vaginal discharge, not erythematous and lesion (Vaginal apex 1 cm lesion, polyp looking/possible granulation tissue) Speculum Exam - Cervix: Cervix absent Bimanual exam- vagina & uterus: bladder normal to palpation and uterus absent Bimanual Exam- Adnexa, other: Other (No masses detected) Office Procedures [facility] Biopsy Before the procedure was started, discussed with the patient the procedure technique, alternatives & all the risks associated with the procedure including but not limited to: bleeding , infection, uterine perforation, injury to bladder, vessels, bowels, possible need for transfusion with all its risks, and others. All questions were answered, the patient verbalized understanding and signed the consent. Using a long Karen Clamp the vaginal apex lesion was grasped and twisted around till it came off, hemostasis was secured using pressure and Monsel's. The patient tolerated the procedure well. Instructions were given to the patient to call if bleeding, temp>100.4 occur. The patient verbalized understanding and agreed with the plan. This note was generated with a voice recognition program. Some errors may have been overlooked during the review of this note. Sometimes these errors may affect the content or meaning of a given sentence. 44801-Eimnaf of Vulva/Perineum Procedure code (CPT) selection complete Results AMB Urinalysis Dipstick UR Leukocytes Trace Last Edit by Lucinda Banegas, OSMIN on 11/01/23 09:34 UR Nitrite Negative Last Edit by Lucinda Banegas, PLACEMENT INTERVIEWER on 11/01/23 09:34 UR Urobilinogen Normal Last Edit by Lucinda Banegas, PLACEMENT INTERVIEWER on 11/01/23 09:34 UR Protein Trace Last Edit by Lucinda Banegas, PLACEMENT INTERVIEWER on 11/01/23 09:34 UR Ph 6.0 Last Edit by Lucinda Banegas, PLACEMENT INTERVIEWER on 11/01/23 09:34 UR Blood Negative Last Edit by Lucinda Banegas, PLACEMENT INTERVIEWER on 11/01/23 09:34 UR Specific Carbon 1.015 Last Edit by Lucinda Banegas, PLACEMENT INTERVIEWER on 11/01/23 09:34 UR Ketone Negative Last Edit by Lucinda Banegas, OSMIN on 11/01/23 09:34 UR Bilirubin Negative Last Edit by Lucinda Banegas, PLACEMENT INTERVIEWER on 11/01/23 09:34 UR Glucose Negative Last Edit by Lucinda Banegas, OSMIN on 11/01/23 09:34 Assessment & Plan Assessment & Plan (1) Vaginal lesion: Code(s): N89.8 - Other specified noninflammatory disorders of vagina Category: Medical Plan: Urine dip was done in the office and was negative. Discussed with the patient the finding on pelvic exam showing it vaginal apex lesion, recommended excision. Procedure done, see note. Instructions given the patient to schedule a 2 week follow-up appointment Orders: Orders AMB Urinalysis Dipstick Today N93.9 - Abnormal uterine and vaginal bleeding, unspecified Surgical Today N93.9 - Abnormal uterine and vaginal bleeding, unspecified AMB [facility] Biopsy Today N89.8 - Other specified noninflammatory disorders of vagina Coding Level of Care Code New Pt Level 3 (85398) Procedure Only Diagnoses Vaginal lesion N89.8 CPT Codes [facility] Biopsy - CPT: 72835-Djfaac of Vulva/Perineum ([id number])
[2023-11-01 09:02] VITALS: BP 132/88; BMI 30.6
== END 2023-11-01 09:43 | disposition home or self-care (01) ==
PROVIDERS: PCP Internal Medicine; Visit Provider Obstetrics & Gynecology
DX: N93.9 Abnormal uterine and vaginal bleeding, unspecified (principal); N89.8 Other specified noninflammatory disorders of vagina
CPT/HCPCS: 56605; 99203

== ENCOUNTER 2023-12-08 12:55 | Outpatient (AMB) | payer BC, SELFPAY ==
--- NOTE | 2023-12-08 12:55 | MHC.OFFVIS ---
Intake Visit Reasons: Biopsy results Allergies lisinopril Adverse Reaction (Intermediate, Verified 11/01/23 09:04) Cough HPI Comments Details: The patient is scheduled tele health visit for follow-up regarding vaginal apex lesion biopsy. The pathology showed the following: Vaginal apex, lesion, biopsy: Granulation tissue with marked inflammation; no evidence of malignancy The patient is referred from her PCP few weeks ago regarding suprapubic discomfort associated with urinary frequency and blood on the tissue after wiping, the patient is not sure of the origin of the bleeding whether it is from the bladder or vagina. Last co testing was in 2009 was negative, no history of abnormal Pap smears, Last colonoscopy was 8 years ago according to the patient, no records available. Last mammogram was in 06/15 BI-RADS 1 at [facility] Pelvic ultrasound done in 08/13 showed the following: The uterus is surgically absent. Bilateral ovaries are poorly visualized. Limited visualization due to bowel gas.. The structure felt to possibly represent the right ovary was poorly visualized and measures approximately 1.9 x 1.8 x 1.5 cm, volume 1.1 mL. The structure felt to possibly represent the left ovary was poorly visualized and measures 2.8 x 1.8 x 1.9 cm, volume 5.0 mL. Pelvic exam showed vaginal apex tissue, biopsy taken. The patient is doing well with no complaints, no bleeding since then. [facility] Medical History Impaired glucose tolerance Dysuria Hypertension Hospital discharge follow-up Sigmoid diverticulitis Hypokalemia Thrush Diverticulitis Tongue burning sensation Tongue abnormality Diverticulitis large intestine w/o perforation or abscess w/o bleeding Anemia Acute allergic reaction Fatty liver Irritable bowel syndrome History of renal calculi Hypercholesterolemia GERD (gastroesophageal reflux disease) Obesity (BMI 30-39.9) Surgical History Hx of colonoscopy History of esophagogastroduodenoscopy (EGD) Hx of arthroscopy of left knee Hx of arthroscopy of right knee History of lithotripsy Hx of appendectomy H/O tubal ligation History of abdominal hysterectomy Family History Father Brain tumor Mother Hypertension CVD (cardiovascular disease) Social History Household Members: Spouse Housing: House Do you presently have visiting nurse or other home services: No Alcohol intake: never Patient Tobacco Use Status: Never used Tobacco e-Cigarette/Vaping Use: Never Used Second Hand Smoke Exposure: No service: No Current occupational status: employed Cognitive needs: No Hearing needs: No Vision needs: Yes Review of Systems Const All systems reviewed & are unremarkable except as noted in HPI and below Reports as per HPI and Reports no additional complaints GI Reports no additional complaints Reports no additional complaints Telehealth Telehealth Telehealth Platform: Telephone Location of provider rendering services: practice address Location of patient: address on file Patient Identification confirmed using: Name, : Yes Telehealth method: video Patient verbally consented to treatment: Yes Patient verbally consented to billing insurance company: Yes Patient informed of any privacy concerns related to visit: Yes Assessment & Plan Assessment & Plan (1) Vaginal lesion: Comment: Granulation tissue Code(s): N89.8 - Other specified noninflammatory disorders of vagina Category: Medical Plan: Discussed with the patient the results the pathology, granulation tissue, sensitivity specificity and false positive and negative rate in detecting malignancy were discussed with the patient. Offered the patient excision under anesthesia, all the pros and cons , risks and benefits were discussed with the patient, and the patient would like to think about it and get back to us. All questions answered, the patient verbalized understanding. I spent a total of 20 minutes reviewing the chart, talking to the patient via video and documenting in the medical record. Coding Level of Care Code Tele Est Pt Level 1 (27209) Diagnoses Vaginal lesion N89.8
== END 2023-12-08 15:00 | disposition home or self-care (01) ==
LOC: HO.HWS 12:55
PROVIDERS: PCP Internal Medicine; Visit Provider Obstetrics & Gynecology
DX: N89.8 Other specified noninflammatory disorders of vagina (principal)
CPT/HCPCS: 99211

== ENCOUNTER → 2023-12-08 12:55 | Outpatient (BNVA) | payer BC, SELFPAY | PROVIDERS: PCP Internal Medicine; Visit Provider Obstetrics & Gynecology ==

== ENCOUNTER 2023-12-15 11:16 | Emergency (ER) | payer BC, SELFPAY ==
--- NOTE | ~2023-12-15 | XR_ITS ---
EXAMINATION: XR KNEE, RIGHT CLINICAL INFORMATION: Pain of right knee COMPARISON: None available. TECHNIQUE: Two views of the right knee. FINDINGS: Bones have normal alignment. No fracture, subluxation or joint effusion. Enthesophyte of the anterior patella. No suspicious osseous lesion. Eirj-kl-aixzlhxm narrowing of the medial tibiofemoral joint space with mild subarticular sclerosis and small marginal osteophytes. No intra-articular osteochondral body. XR/XR knee RT 2V IMPRESSION: * No acute osseous injury at the right knee. * Kxsd-vp-dycmxaee osteoarthrosis of the medial tibiofemoral joint.
[2023-12-15 11:24] VITALS: BP 164/99; PULSE 95; RESP 16; TEMP 36.7; O2SAT 95; BMI 30.5
--- NOTE | 2023-12-15 11:24 | ED.GENADULT ---
HPI - General Adult General Chief complaint: Extremity Injury, Lower Stated complaint: leg pain Time Seen by Provider: 12/15/23 12:08 Source: patient Mode of arrival: ambulatory Limitations: no limitations History of Present Illness ED Provider: Radha CUENCA HPI narrative: 58-year-old female history of hyperparathyroidism, OA, obesity, htn, gerd, gastric erosions presents to the emergency department with complaints of lower extremity pain bilaterally ongoing for the past few months as well as right knee pain acutely worsening over the past few days. Which prompted her to come in today to get seen. Denies associated trauma. Intermittent tingling bilaterally. Worse with walking, weight-bearing and long days better at rest. Denies fevers, chills, trauma, chest pain, shortness breath, numbness, previous injuries to these extremities. Related Data Previous Rx's ?Medication ?Instructions ?Recorded simethicone 125 mg capsule (Gas 125 mg PO TID-QID PRN abdominal 11/09/22 Relief (simethicone)) distention #120 caps acetaminophen 500 mg tablet 1,000 mg (2 x 500 mg) PO Q6H PRN 03/18/23 (Tylenol Extra Strength) fever or pain #20 tabs naproxen 500 mg tablet 500 mg PO BID 7 days #14 tabs 07/18/23 losartan 50 mg tablet 50 mg PO DAILY #90 tabs 11/08/23 pantoprazole 40 mg tablet,delayed 40 mg PO DAILY@0630 #90 tabs 11/08/23 release linaclotide 145 mcg capsule 145 mcg PO DAILY #90 caps 11/09/23 (Linzess) ketorolac 10 mg tablet 10 mg PO TID PRN pain 5 days #15 12/15/23 tabs Allergies Allergy/AdvReac Type Severity Reaction Status Date / Time lisinopril AdvReac Intermediate Cough Verified 12/15/23 11:26 Review of Systems Review of Systems: Yes all other systems are reviewed and are negative PMFSH Past Medical History Attestation statement: The following information was validated with the patient. Source: old records reviewed and nursing notes reviewed Medical History Impaired glucose tolerance Dysuria Hypertension Hospital discharge follow-up Sigmoid diverticulitis Hypokalemia Thrush Diverticulitis Tongue burning sensation Tongue abnormality Diverticulitis large intestine w/o perforation or abscess w/o bleeding Anemia Acute allergic reaction Fatty liver Irritable bowel syndrome History of renal calculi Hypercholesterolemia GERD (gastroesophageal reflux disease) Obesity (BMI 30-39.9) Surgical History Hx of colonoscopy History of esophagogastroduodenoscopy (EGD) Hx of arthroscopy of left knee Hx of arthroscopy of right knee History of lithotripsy Hx of appendectomy H/O tubal ligation History of abdominal hysterectomy Family History Family History Father Brain tumor Mother Hypertension CVD (cardiovascular disease) Social History Social History Household Members: Spouse Housing: House Do you presently have visiting nurse or other home services: No Alcohol intake: never Patient Tobacco Use Status: Never used Tobacco e-Cigarette/Vaping Use: Never Used Second Hand Smoke Exposure: No Advance Directives: No Advance Directives Information Provided: No Do you have a plan to hurt others: No Plan service: No Current occupational status: employed Cognitive needs: No Hearing needs: No Vision needs: Yes Physical Exam ED Vital Signs: Vital Signs - 24 hr 12/15/23 11:24 12/15/23 12:19 Temperature 98.1 F 97.9 F Pulse Rate 95 84 Respiratory Rate 16 14 Blood Pressure 164/99 H 145/96 H Pulse Oximetry 95 95 Oxygen Delivery Method Room Air Room Air BMI result Body Mass Index 30.5 vss Appearance: Alert.? Oriented X3.? No acute distress.? Head: Normocephalic, atraumatic, no step-offs or deformities Eyes: Pupils equal, round and reactive to light.? ENT: Pharynx normal.? Neck: Normal inspection.? Neck supple.? CVS: Normal heart rate and rhythm.? Pulses normal.? Respiratory: No respiratory distress.? Breath sounds normal.? Abdomen: Soft and nontender.? Skin: Skin warm and dry.? Normal skin color.? Normal skin turgor.? Extremities: No lower extremity edema.? No calf ttp. 5/5 strength to bilateral upper and lower extremities + full range of motion to bilateral knees. 2+ dorsalis pedis anterior tibialis posterior tibialis pulses equal bilateral. Negative Homans bilaterally. Ambulatory w/ steady gait normal coordination. No foot drop. Normal distal sensation b/l Back: No midline tenderness, no C-spine tenderness, full range of motion, no CVA tenderness bilaterally Neuro: Oriented X 3.? No motor deficit.? No sensory deficit. CN 2-12 intact Course Course Course Narrative: This is a rapid medical exam performed by Ariane Sandoval NP: Additional HPI, ROS, PE not included below will be deferred to primary provider. Patient is a 58-year-old female with T2DM, hyperparathyroidism, HTN, hypercholesterolemia, GERD presenting to the ED with complaint of bilateral lower leg pain x 2 weeks. Denies injury. Denies history of DM. Intermittent paresthesias. Taken Tylenol with little relief. Plan: labs Medications Administered Discontinued Medications Generic Name Dose Route Start Last Admin Trade Name Freq PRN Reason Stop Dose Admin Ketorolac Tromethamine 30 mg 12/15/23 13:00 12/15/23 13:18 Ketorolac Tromethamine 30 Mg/Ml Vial IM 12/15/23 13:01 30 mg ONCE ONE Administration Medical Decision Making Medical Decision Making [facility] Narrative: 58 yo f presents w/ b/l LE pain and right knee pain X months PE No lower extremity edema.? No calf ttp. 5/5 strength to bilateral upper and lower extremities + full range of motion to bilateral knees. 2+ dorsalis pedis anterior tibialis posterior tibialis pulses equal bilateral. Negative Homans bilaterally. Ambulatory w/ steady gait normal coordination. No foot drop. Normal distal sensation b/l History and physical exam concerning for osteoarthritis versus fibromyalgia versus musculoskeletal pain. Unlikely fracture, dislocation neurovascular compromise, acute threat to limb, arterial or venous occlusion Plan imaging, D-dimer Differential Diagnosis Differential Diagnoses: The differential diagnosis associated with the presentation includes History and physical exam concerning for osteoarthritis versus fibromyalgia versus musculoskeletal pain. Unlikely fracture, dislocation neurovascular compromise, acute threat to limb, arterial or venous occlusion Admission/Observation Consideration of admission/observation: Escalation of care including admission/observation considered Unlikely Lab Data [facility] Lab Attestation statement: I reviewed the patient's lab results. 12/15/23 11:55 12/15/23 11:55 Labs: Lab Results 12/15/23 12/15/23 Range/Units 11:55 12:59 WBC 9.0 (4.8-10.8) X10*3/uL RBC 4.26 (4.20-5.50) X10*6/uL Hgb 12.3 (12.0-16.0) g/dl Hct 37.2 (37.0-47.0) % MCV 87.3 (80.0-98.0) fL MCH 28.9 (27.0-33.0) pg MCHC 33.1 (31.0-35.0) g/dl RDW 13.4 (11.0-16.0) % Plt Count 306 (160-400) X10*3/uL MPV 8.7 L (9.4-12.3) fL Immature Gran % (Auto) 0.4 (0.0-0.4) % Neut % (Auto) 62.6 (45-73) % Lymph % (Auto) 28.5 (20-40) % Blount % (Auto) 6.1 (2-11) % Eos % (Auto) 1.7 (0-4) % Baso % (Auto) 0.7 (0-2) % Lymph # (Auto) 2.6 (1.2-4.9) X10*3/uL Blount # (Auto) 0.6 (0.1-1.2) X10*3/uL Eos # (Auto) 0.2 (0.0-0.4) X10*3/uL Baso # (Auto) 0.1 (0.0-0.2) X10*3/uL Abs Immat Gran (auto) 0.04 H (0.00-0.03) X10*3/uL Absolute Neuts (auto) 5.6 (2.0-8.3) x10*3/uL Absolute Nucleated RBC 0.000 (0.0-0.012) X10*3/uL Nucleated RBC % (auto) 0.0 (0.0-0.2) /100WBC D-Dimer High Sensitivty < 150 NG/ML Sodium 141 (135-145) mmol/L Potassium 3.8 (3.3-5.1) mmol/L Chloride 108 (96-108) mmol/L Carbon Dioxide 25 (22-29) mmol/L Anion Gap 12 (12-20) BUN 10 (9-16) mg/dL Creatinine 0.78 (0.5-1.4) mg/dL Estim Creat Clear Calc 74.9 Estimated GFR > 60 Random Glucose 136 H (60-115) mg/dL Calcium 9.4 D (8.4-10.2) mg/dL Magnesium 2.2 (1.6-2.6) mg/dL Total Bilirubin 0.3 (0.0-1.0) mg/dL AST 17 (5-31) U/L ALT 26 (0-31) U/L Alkaline Phosphatase 91 (39-117) U/L Total Protein 7.2 (6.5-8.0) g/dL Albumin 4.1 (3.5-5.0) g/dL Independent Interpretation I performed an independent interpretation of an: Plain X-Ray (XR/XR knee RT 2V IMPRESSION: * No acute osseous injury at the right knee. * Cbpj-pz-hpryembj osteoarthrosis of the medial tibiofemoral joint.) Radiology Impression Discussion of test interpretation with radiology: I have reviewed the radiologist's reading. External Record Review External record reviewed: Inpatient record, Office record, Outpatient record, Prior outpatient labs, Prior outpatient radiology, Primary care record and Outside ED record Prescription Management I considered prescription management with: Pain Medication (toradol ) Chronic Conditions Patient?s care impacted by: Hypertension and Other (OA, obesity, htn, gerd, gastric erosions ) Discharge Plan Discharge Clinical Impression: Knee pain, right, Lower extremity pain, bilateral, Osteoarthritis Patient Disposition: Home, Self-Care Instructions: Osteoarthritis (ED), Knee Pain (ED), Arthralgia (ED), Leg Pain (ED) Additional Instructions: Take your medications as prescribed. If you were prescribed antibiotics today, it is important that you take your medication to their entirety, do not skip any doses, do not finish them early. Follow-up with your primary care provider this week. Return to the emergency department with new or worsening symptoms. Such as fevers, chills, chest pain, shortness of breath, nausea, vomiting, dizziness, headache, vision changes, lethargy In case of emergency call 911 Toradol has been sent to your pharmacy, you tolerated this well in the department. Please take this as prescribed do not take this with ibuprofen, or other NSAIDs, do not mix this with alcohol. Side effects of this medication including increased risk for bleeding and possible kidney injury. XR/XR knee RT 2V IMPRESSION: * No acute osseous injury at the right knee. * Bgrq-qh-yoalxukp osteoarthrosis of the medial tibiofemoral joint. Prescriptions: New ketorolac 10 mg tablet 10 mg PO TID PRN (Reason: pain) 5 Days Qty: 15 0RF No Action losartan 50 mg tablet 50 mg PO DAILY Qty: 90 1RF pantoprazole 40 mg tablet,delayed release (DR/EC) 40 mg PO DAILY@0630 Qty: 90 3RF Linzess 145 mcg capsule 145 mcg PO DAILY Qty: 90 2RF acetaminophen [Tylenol Extra Strength] 500 mg tablet 1,000 mg PO Q6H PRN (Reason: fever or pain) Qty: 20 0RF naproxen 500 mg tablet 500 mg PO BID 7 Days Qty: 14 0RF simethicone [Gas Relief (simethicone)] 125 mg capsule 125 mg PO TID-QID PRN (Reason: abdominal distention) Qty: 120 2RF Referrals: [facility] [place] [facility] [Provider Group] - 2 days Po,Isaac Sequeira MD [Primary Care Provider] - 2 days Stand Alone Forms: Work/School Release Print Language: Monegasque
[2023-12-15 12:15] LABS: MANUAL DIFF FLAG NO
[2023-12-15 12:16] LABS: Basophils Absolute Auto 0.1 X10*3/uL (0.0-0.2); Basophils Percent Auto 0.7 % (0-2); Eosinophils Absolute Auto 0.2 X10*3/uL (0.0-0.4); Eosinophils Percent Auto 1.7 % (0-4); Hematocrit 37.2 % (37.0-47.0); Hemoglobin 12.3 g/dl (12.0-16.0); Imm Gran Abs Auto 0.04 X10*3/uL (0.00-0.03); Imm Gran Pct Auto 0.4 % (0.0-0.4); Lymphocytes Absolute Auto 2.6 X10*3/uL (1.2-4.9); Lymphocytes Percent Auto 28.5 % (20-40); Mean Corpuscular HGB Conc 33.1 g/dl (31.0-35.0); Mean Corpuscular Hemoglobin 28.9 pg (27.0-33.0); Mean Corpuscular Volume 87.3 fL (80.0-98.0); Mean Platelet Volume 8.7 fL (9.4-12.3); Monocytes Absolute Auto 0.6 X10*3/uL (0.1-1.2); Monocytes Percent Auto 6.1 % (2-11); Neutrophils Absolute Auto 5.6 x10*3/uL (2.0-8.3); Neutrophils Percent Auto 62.6 % (45-73); Platelet Count 306 X10*3/uL (160-400); Red Blood Count 4.26 X10*6/uL (4.20-5.50); Red Cell Distribution Width 13.4 % (11.0-16.0)
[2023-12-15 12:19] VITALS: BP 145/96; PULSE 84; RESP 14; TEMP 36.6; O2SAT 95
[2023-12-15 12:34] LABS: Alanine Aminotransferase 26 U/L (0-31); Albumin Level 4.1 g/dL (3.5-5.0); Alkaline Phosphatase 91 U/L (39-117); Anion Gap 12 (12-20); Aspartate Amino Transferase 17 U/L (5-31); Bilirubin Total 0.3 mg/dL (0.0-1.0); Blood Urea Nitrogen 10 mg/dL (9-16); Calcium 9.4 mg/dL (8.4-10.2); Carbon Dioxide 25 mmol/L (22-29); Chloride 108 mmol/L (96-108); Creatinine Clr Calc Pharmacy 74.9; Estimated Glomerular Filt Rate > 60; Glucose Random 136 mg/dL (60-115); Magnesium 2.2 mg/dL (1.6-2.6); Potassium 3.8 mmol/L (3.3-5.1); Sodium 141 mmol/L (135-145); Total Protein 7.2 g/dL (6.5-8.0)
[2023-12-15] MEDS: Ketorolac Tromethamine 30 MG/ML VIAL IM (13:18)
--- NOTE | 2023-12-15 13:20 | PC.NURSE ---
pt a&ox3, medicated for 12/30 ble pain
[2023-12-15 13:22] LABS: D Dimer High Sensitivity < 150 NG/ML
[2023-12-15 14:39] VITALS: BP 185/100; PULSE 71; RESP 18; TEMP 36.8; O2SAT 98
== END 2023-12-15 14:40 | disposition home or self-care (01) ==
PROVIDERS: Physician Assistant; Registered Nurse Emergency; Emergency Provider Emergency Medicine; PCP Internal Medicine
DX: M25.561 Pain in right knee (principal); M25.562 Pain in left knee; I10 Essential (primary) hypertension; Z79.899 Other long term (current) drug therapy
CPT/HCPCS: 36415; 73560; 80053; 83735; 85025; 85379; 96372; 99283; 99284; J1885

== ENCOUNTER 2024-01-05 13:24 | Outpatient (REF) | payer BC, SELFPAY | END 2024-01-05 13:25 | disposition home or self-care (01) | LOC: HO.HOSX 13:24 | DX: Z13.89 Encounter for screening for other disorder (principal) ==

== ENCOUNTER 2024-01-06 13:56 | Outpatient (REF) | payer BC, SELFPAY ==
--- NOTE | ~2024-01-06 | XR_ITS ---
EXAMINATION: XR KNEE, RIGHT XR KNEE, LEFT CLINICAL INFORMATION: Right and left knee pain. COMPARISON: Right knee radiographs dated 12/15/2023. TECHNIQUE: AP standing view of the right and left knee, as well as lateral views of the right and left knee. [place] view of the right knee. FINDINGS: RIGHT KNEE: Severe medial compartment joint space narrowing with subchondral sclerosis and marginal osteophytes. Small patellofemoral and lateral compartment marginal osteophytes. Findings are slightly progressed when compared to the prior examination. No concerning lytic or blastic osseous lesion. No joint effusion. Inferior patellar enthesophytes. LEFT KNEE: Hgfdqxre-kw-rimuhi medial compartment joint space narrowing with marginal osteophytes. No fracture or dislocation. No concerning lytic or blastic osseous lesion. Trace joint effusion. No abnormal soft tissue calcification. XR/XR knee LT 2V IMPRESSION: RIGHT KNEE: Tricompartmental osteoarthritis, most severe within the medial compartment, slightly progressed when compared to the prior examination. LEFT KNEE: Okdtoatc-gx-dwyvmk medial compartment osteoarthritis. Electronically signed by: Jimmy Huddleston MD 02/01/2024 09:43 PM EDT
--- NOTE | ~2024-01-06 | XR_ITS ---
EXAMINATION: XR KNEE, RIGHT XR KNEE, LEFT CLINICAL INFORMATION: Right and left knee pain. COMPARISON: Right knee radiographs dated 12/15/2023. TECHNIQUE: AP standing view of the right and left knee, as well as lateral views of the right and left knee. [place] view of the right knee. FINDINGS: RIGHT KNEE: Severe medial compartment joint space narrowing with subchondral sclerosis and marginal osteophytes. Small patellofemoral and lateral compartment marginal osteophytes. Findings are slightly progressed when compared to the prior examination. No concerning lytic or blastic osseous lesion. No joint effusion. Inferior patellar enthesophytes. LEFT KNEE: Vuqavmnq-mi-qjwjjr medial compartment joint space narrowing with marginal osteophytes. No fracture or dislocation. No concerning lytic or blastic osseous lesion. Trace joint effusion. No abnormal soft tissue calcification. XR/XR knee RT 3V IMPRESSION: RIGHT KNEE: Tricompartmental osteoarthritis, most severe within the medial compartment, slightly progressed when compared to the prior examination. LEFT KNEE: Bscrkeiv-sp-xgrgbq medial compartment osteoarthritis. Electronically signed by: Jimmy Huddleston MD 02/01/2024 09:43 PM EDT
== END 2024-01-06 13:57 | disposition home or self-care (01) ==
LOC: HO.XRAY 13:56
PROVIDERS: PCP Internal Medicine
DX: M17.11 Unilateral primary osteoarthritis, right knee (principal); M25.562 Pain in left knee
CPT/HCPCS: 20610; 73560; 73562; J1010

== ENCOUNTER 2024-01-06 14:41 | Outpatient (AMB) | payer BC, SELFPAY ==
--- NOTE | 2024-01-06 14:44 | A.OFFVIS_ITS ---
Vital Signs 01/06/24 14:55 Height 5 ft 2 in Weight 167 lb BMI 30.5 Intake Visit Reasons: Left knee pain Intake Note: Christel is a 58 year old female who presents today as a new patient with complaints of left knee pain. Patient reports she has been having ongoing left knee pain for roughly 10 years. She expresses like her leg is very heavy. Symptoms worsened with prolonged walking, standing, sitting, and gait initation. Intermittent tingling and pain is on anterior, lateral, and medial aspect of left knee. Hx of gel injections in left knee ~ 10 years ago which provided her with relief up until 2 months ago. Extra strength Tylenol provides little relief. Denies recent trauma to knees. She says hx of tore cartilage in B/L knees roughly 15-18 years ago and [place] [facility] [place]ergies lisinopril Adverse Reaction (Intermediate, Verified 01/06/24 14:54) Cough HPI Comments Details: Patient is a 58-year-old female who presents for evaluation of left knee pain. Patient reports that this knee pain has been ongoing for approximately 10 years, and at that time she was here gel injections, which have helped until approximately 1-2 months ago, when she noticed her pain beginning to gradually worsened. The patient reports that she does have a previous diagnosis of osteoarthritis in her left knee. Patient reports that pain is primarily localized in the anterior knee, worst at the medial and lateral joint lines. The patient reports that she does have a history of ?torn cartilage? in her bilateral knees that she had surgically repaired at [facility] approximately 15 years ago. Patient inquires about potential injections today. No other acute complaints or concerns this time. [facility] Medical History Impaired glucose tolerance Dysuria Hypertension Hospital discharge follow-up Sigmoid diverticulitis Hypokalemia Thrush Diverticulitis Tongue burning sensation Tongue abnormality Diverticulitis large intestine w/o perforation or abscess w/o bleeding Anemia Acute allergic reaction Fatty liver Irritable bowel syndrome History of renal calculi Hypercholesterolemia GERD (gastroesophageal reflux disease) Obesity (BMI 30-39.9) Surgical History Hx of colonoscopy History of esophagogastroduodenoscopy (EGD) Hx of arthroscopy of left knee Hx of arthroscopy of right knee History of lithotripsy Hx of appendectomy H/O tubal ligation History of abdominal hysterectomy Family History Father Brain tumor Mother Hypertension CVD (cardiovascular disease) Social History Household Members: Spouse Housing: House Do you presently have visiting nurse or other home services: No Alcohol intake: never Patient Tobacco Use Status: Never used Tobacco e-Cigarette/Vaping Use: Never Used Second Hand Smoke Exposure: No service: No Current occupational status: employed Cognitive needs: No Hearing needs: No Vision needs: Yes Physical Exam Vital Signs: BMI result Body Mass Index 30.5 Extrem Other: Inspection, there is moderate edema to the left knee when compared to the right No erythema, ecchymosis, evidence of infection noted No lacerations, abrasions, open areas noted Patient does report mild tenderness to palpation about the medial and lateral joint line of the left knee No other tenderness to palpation of the left knee noted Patient is able to flex the knee to approximately 120 degrees without difficulty Patient can extend the left knee to approximately 5-10 degrees without difficulty, but reports that she experiences discomfort beyond this Negative Tyler's Distal sensation intact Capillary refill brisk Office Procedures Joint Injection/Aspiration Joint Injection/Aspiration Primary Site: left knee Prep: site was prepped using aseptic technique Injected: 40 mg of, DepoMedrol, with 8 mL of and 1% plain lidocaine Approach Used: anterolateral Procedure: The patient tolerated the procedure well and there was some relief with the local anesthesia Coding Procedure code (CPT) selection complete Results Reviewed Results Reviewed: X-rays obtained in the office today and independently reviewed by me, Manuel Jones PA-C, demonstrate moderate arthritic changes of the left knee, as well as mild arthritic changes of the right knee. No fracture or acute bony abnormality noted. Assessment & Plan Assessment & Plan (1) Degenerative arthritis of knee, bilateral: Code(s): M17.0 - Bilateral primary osteoarthritis of knee Category: Medical (2) Left knee pain: Code(s): M25.562 - Pain in left knee Plan 1. Left knee arthritis Ongoing for approximately 10 years I discussed both operative and nonoperative treatments for this condition with the patient, and she would like to proceed with injection of the left knee: The risks and benefits of a steroid injection including but not limited to risk of damage to blood vessels, nerves, tendons, infection, skin bleaching, failure to improve symptoms, increased pain, and possible need for further injections or other intervention were discussed with the patient and the patient wishes to proceed with the steroid injection. Once consent was obtained, I aseptically prepped the area over the anterolateral joint line of the left knee. I then injected the area over the lateral epicondyle with a combination of 40 mg of dexamethasone and 8 mL of 1% lidocaine. The patient tolerated the procedure well with no complications. If the patient continues to experience symptoms over the following few weeks or months, they can make an appointment to return and discuss alternative treatment measures, such as physical therapy. Patient is also educated that her blood sugar levels may elevate in response to a steroid injection, so she should closely monitor her blood sugar levels for necessary adjustments to her diabetes medications. Follow-up prn Orders: Orders XR knee RT 3V 01/06/24 M17.11 - Unilateral primary osteoarthritis, right knee Coding Level of Care Code New Pt Level 3 (25497) Diagnoses Degenerative arthritis of knee, bilateral M17.0 Left knee pain M25.562
[2024-01-06 14:55] VITALS: BMI 30.5
== END 2024-01-06 15:45 | disposition home or self-care (01) ==
PROVIDERS: PCP Internal Medicine
DX: M17.0 Bilateral primary osteoarthritis of knee (principal); M25.562 Pain in left knee
CPT/HCPCS: 99203

== ENCOUNTER 2024-02-10 14:51 | Outpatient (AMB) | payer BC, SELFPAY ==
--- NOTE | 2024-02-10 14:56 | MHC.OFFVIS ---
Vital Signs 02/10/24 14:57 Height 5 ft 2 in Weight 173 lb 11.588 oz BMI 31.8 BP 142/86 H Blood Pressure Location Rt brachial Position Sitting Pulse 100 Pulse Source Pulse Oximeter Pulse Oximetry (%) 96 Oxygen Delivery Method Room Air Intake Visit Reasons: 1 year follow up Intake Note: Christel presents in office today for a scheduled 1 YR FUV. CC; Pt reports that they had been doing well since their last visit. However, pt had an episode of abd pain, with associated bloating in the LLQ. Pt states that this lasted for approximately 3 days but then dissipated. Pt also reports noticing that they experience vaginal bleeding when they have this pain. Pt denies any other sx associated with these episodes. Director Digital Required: No Allergies lisinopril Adverse Reaction (Intermediate, Verified 02/10/24 14:57) Cough HPI HPI 1 year follow up: Details: LAST VISIT: Diverticular disease Continue taking probiotic every day. Continue high-fiber diet. Sigmoid diverticulitis History of sigmoid diverticulitis. Patient will continue to drink plenty fluids continue probiotic. Patient was encouraged to he high-fiber diet. Constipation Patient was encouraged to increase fluid intake and activity to promote better bowel acuity. Patient can take Linzess on as needed basis, however patient can start taking Colace on daily basis. She will follow-up in the office in 1 year, sooner on as needed basis. Patient is agreeable to this plan and verbalizes understanding of instructions. She was given the opportunity to ask questions all questions answered. ? TODAY'S VISIT: Patient is here today for follow-up. Patient reports that she has been doing well since the last visit, however patient reports that she experienced left lower quadrant/inguinal area pain Patient reports the pain as sharp. Reports no bleeding when having a bowel movement. Patient reports that when she has this pain her bladder feels full quickly and she has to go to the bathroom more frequently. Patient denies any rectal bleed reports she is moving her bowels without issues. Patient denies any melena, hematochezia, unintentional weight loss or ribbon like stools. [facility] Medical History Impaired glucose tolerance Dysuria Hypertension Hospital discharge follow-up Sigmoid diverticulitis Hypokalemia Thrush Diverticulitis Tongue burning sensation Tongue abnormality Diverticulitis large intestine w/o perforation or abscess w/o bleeding Anemia Acute allergic reaction Fatty liver Irritable bowel syndrome History of renal calculi Hypercholesterolemia GERD (gastroesophageal reflux disease) Obesity (BMI 30-39.9) Surgical History Hx of colonoscopy History of esophagogastroduodenoscopy (EGD) Hx of arthroscopy of left knee Hx of arthroscopy of right knee History of lithotripsy Hx of appendectomy H/O tubal ligation History of abdominal hysterectomy Family History Father Brain tumor Mother Hypertension CVD (cardiovascular disease) Social History Household Members: Spouse Housing: House Do you presently have visiting nurse or other home services: No Alcohol intake: never Patient Tobacco Use Status: Never used Tobacco e-Cigarette/Vaping Use: Never Used Second Hand Smoke Exposure: No service: No Current occupational status: employed Cognitive needs: No Hearing needs: No Vision needs: Yes Review of Systems Const Denies weight gain and Denies weight loss ENT Reports no additional complaints, Denies dysphagia and Denies odynophagia Card Reports no additional complaints Resp Reports no additional complaints GI Denies abdominal pain, Denies belching, Denies melena, Denies bloating, Denies change in bowel habits, Denies dysphagia, Denies excessive flatus, Denies dyspepsia, Denies heartburn, Denies diarrhea, Denies loose stools, Denies nausea, Denies odynophagia and Denies vomiting Musc Reports no additional complaints Neuro Reports no additional complaints Psych Reports no additional complaints Endo Reports no additional complaints Physical Exam Const General: healthy appearing and no acute distress Nutritional Appearance: obese Orientation/consciousness: patient oriented x3 Resp Effort & Inspection: normal respiratory effort, able to speak in complete sentences, no tracheal deviation and symmetric chest movement Auscultation: clear to auscultation bilaterally Cardio Rate: regular rate GI Inspection: Yes normal to inspection, No distended and Yes obesity Palpation (GI): Soft to palpation, not firm, nontender and No hepatosplenomegaly present Auscultation: normal bowel sounds General: Yes no CVA tenderness Back/Spine/Pelvis Back: no CVA tenderness Skin General skin exam: elasticity normal, turgor normal and dry skin Neuro General: patient oriented x3 Psych Appearance: grossly normal Mental Status: mental status grossly normal Assessment & Plan Assessment & Plan (1) Diverticular disease: Code(s): K57.90 - Diverticulosis of intestine, part unspecified, without perforation or abscess without bleeding Category: Medical (2) Constipation: Code(s): K59.00 - Constipation, unspecified Category: Medical Qualifiers: Constipation type: slow transit constipation Qualified Code(s): K59.01 - Slow transit constipation (3) Epigastric abdominal pain: Code(s): R10.13 - Epigastric pain Category: Medical (4) GERD (gastroesophageal reflux disease): Code(s): K21.9 - Gastro-esophageal reflux disease without esophagitis Category: Medical Qualifiers: Esophagitis presence: without esophagitis Qualified Code(s): K21.9 - Gastro-esophageal reflux disease without esophagitis Plan Patient will continue pantoprazole daily. Take Linzess , increase fluid intake and activity to promote better bowel motility. Referral to urology. Patient reports bladder fullness and frequency with abdominal pain and cramping. Patient is to call the office when she will experience this pain again. Will order CT of abdomen and pelvis. History of sigmoid diverticulitis. Patient will follow-up in 3 months, sooner on as needed basis. She is agreeable to this plan and verbalizes understanding of instructions. She was given the opportunity to ask questions and all questions answered. Thank you for allowing me to participate in her care Orders: Referrals Urology Referral Z87.898 - Personal history of other specified conditions Coding Level of Care Code Est Pt Level 4 (13390) Diagnoses Diverticular disease K57.90 Slow transit constipation K59.01 Constipation type: slow transit constipation Epigastric abdominal pain R10.13 Gastroesophageal reflux disease without esophagitis K21.9 Esophagitis presence: without esophagitis Time Spent (min) 35 Comment 20 minutes spent with patient and additional 15 minutes spent reviewing her records
[2024-02-10 14:57] VITALS: BP 142/86; PULSE 100; O2SAT 96; BMI 31.8
== END 2024-02-10 15:19 | disposition home or self-care (01) ==
PROVIDERS: PCP Internal Medicine; Visit Provider Nurse Practitioner Family
DX: K57.90 Diverticulosis of intestine, part unspecified, without perforation or abscess without bleeding (principal); K59.01 Slow transit constipation; R10.13 Epigastric pain; K21.9 Gastro-esophageal reflux disease without esophagitis
CPT/HCPCS: 99214

== ENCOUNTER → 2024-02-10 14:51 | Outpatient (BNVA) | payer BC, SELFPAY | PROVIDERS: PCP Internal Medicine; Visit Provider Nurse Practitioner Family ==

== ENCOUNTER 2024-02-17 08:00 | Outpatient (REF) | payer BC, SELFPAY ==
[2024-02-17 08:16] LABS: MANUAL DIFF FLAG NO
[2024-02-17 08:39] LABS: Basophils Percent Auto 0.5 % (0-2); Eosinophils Absolute Auto 0.2 X10*3/uL (0.0-0.4); Hemoglobin 13.1 g/dl (12.0-16.0); Imm Gran Abs Auto 0.02 X10*3/uL (0.00-0.03); Imm Gran Pct Auto 0.3 % (0.0-0.4); Lymphocytes Percent Auto 40.8 % (20-40); Mean Corpuscular HGB Conc 32.8 g/dl (31.0-35.0); Mean Corpuscular Volume 88.5 fL (80.0-98.0); Mean Platelet Volume 8.6 fL (9.4-12.3); Monocytes Absolute Auto 0.4 X10*3/uL (0.1-1.2); Monocytes Percent Auto 5.1 % (2-11); Neutrophils Absolute Auto 3.8 x10*3/uL (2.0-8.3); Neutrophils Percent Auto 51.3 % (45-73); Platelet Count 286 X10*3/uL (160-400); Red Blood Count 4.52 X10*6/uL (4.20-5.50); Red Cell Distribution Width 13.3 % (11.0-16.0); White Blood Count 7.3 X10*3/uL (4.8-10.8)
[2024-02-17 09:17] LABS: Creatinine Urine 91.13 mg/dL
[2024-02-17 09:28] LABS: Estimated Average Glucose 123 mg/dL; Hemoglobin A1C 151.3107 umol/L; Hemoglobin A1c % 5.9 % (<6.0)
[2024-02-17 09:29] LABS: Alanine Aminotransferase 19 U/L (0-31); Albumin Level 4.1 g/dL (3.5-5.0); Alkaline Phosphatase 98 U/L (39-117); Anion Gap 10 (12-20); Aspartate Amino Transferase 12 U/L (5-31); Bilirubin Total 0.3 mg/dL (0.0-1.0); Blood Urea Nitrogen 14 mg/dL (9-16); Calcium 10.2 mg/dL (8.4-10.2); Carbon Dioxide 30 mmol/L (22-29); Chloride 108 mmol/L (96-108); Cholesterol 220 mg/dL (<200); Estimated Glomerular Filt Rate > 60; Glucose Random 106 mg/dL (60-115); HDL Cholesterol 49 mg/dL (>40); LDL Cholesterol Calculated 151 mg/dL (<100); Potassium 4.6 mmol/L (3.3-5.1); Sodium 143 mmol/L (135-145); Total Protein 7.4 g/dL (6.5-8.0); Triglycerides 103 mg/dL (<150)
[2024-02-17 09:30] LABS: Free T4 (Free Thyroxine) 1.03 ng/dL (0.71-1.85); Thyroid Stimulating Hormone 2.91 uIU/mL (0.32-4.0); Vitamin D 25-OH Total 34.7 ng/mL (>30)
[2024-02-17 09:45] LABS: Folate 11.9 ng/mL (> or = 4.0); Vitamin B12 543 pg/mL (200-900)
== END 2024-02-17 08:01 | disposition home or self-care (01) ==
LOC: HO.LAB 08:00
PROVIDERS: PCP Internal Medicine; Visit Provider Internal Medicine
DX: E78.00 Pure hypercholesterolemia, unspecified (principal); E11.65 Type 2 diabetes mellitus with hyperglycemia
CPT/HCPCS: 36415; 80053; 80061; 82306; 82570; 82607; 82746; 83036; 84439; 84443; 85025

== ENCOUNTER 2024-02-20 15:04 | Outpatient (AMB) | payer BC, SELFPAY ==
[2024-02-20 15:05] VITALS: BP 140/86; PULSE 71; O2SAT 96; BMI 31.8
--- NOTE | 2024-02-20 15:05 | A.OFFPC_ITS ---
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 Patient is up-to-date with colonoscopy, mammogram. Review of the notes has seen gastroenterology February 10 2024 patient is on pantoprazole, Linzess was referred to Urology to to bladder fullness advised to get CT scan of the abdomen.. Patient has also seen Orthopedics January 05 for the knee pain x-ray showing moderate arthritis of the left knee and mild arthritis on the right knee. Injection planned. Right knee tricompartmental osteoarthritis most severe medial compartment progressed left knee moderate to severe compartment osteoarthritis. Patient complains of having left flank pain radiating to the lower abdominal area and has frequency. No fevers no nausea no vomiting PFSH Medical History Impaired glucose tolerance Dysuria Hypertension Hospital discharge follow-up Sigmoid diverticulitis Hypokalemia Thrush Diverticulitis Tongue burning sensation Tongue abnormality Diverticulitis large intestine w/o perforation or abscess w/o bleeding Anemia Acute allergic reaction Fatty liver Irritable bowel syndrome History of renal calculi Hypercholesterolemia GERD (gastroesophageal reflux disease) Obesity (BMI 30-39.9) Surgical History Hx of colonoscopy History of esophagogastroduodenoscopy (EGD) Hx of arthroscopy of left knee Hx of arthroscopy of right knee History of lithotripsy Hx of appendectomy H/O tubal ligation History of abdominal hysterectomy Family History Father Brain tumor Mother Hypertension CVD (cardiovascular disease) Social History Household Members: Spouse Housing: House Do you presently have visiting nurse or other home services: No Alcohol intake: never Patient Tobacco Use Status: Never used Tobacco e-Cigarette/Vaping Use: Never Used Second Hand Smoke Exposure: No service: No Current occupational status: employed Current occupational exposures/hazards: No Cognitive needs: No Hearing needs: No Vision needs: Yes Questionnaire Thrive Questionnaire Date Thrive assessed: 08/02/23 JENNIFER-7 AMB Questionnaire JENNIFER-7 Date JENNIFER - 7 assessed: 08/02/23 Source: Developed by Drs. Alan Pang, Kay Garza, Jesús Berger and colleagues, with an educational tejas from [employer]. Physical exam (Primary Care) Vital Signs: Last Vital Signs Pulse 71 02/20/24 15:05 BP 146/80 H 02/20/24 15:27 Pulse Ox 96 02/20/24 15:05 Oxygen Delivery Method Room Air 02/20/24 15:05 BMI result Body Mass Index 31.8 Tobacco/Smoking Status: Tobacco use Status Tobacco use date assessed 08/02/23 02/20/24 15:09 Patient Tobacco Use Status Never used Tobacco 02/20/24 15:09 e-Cigarette/Vaping Use Never Used 02/20/24 15:09 Thrive Assessment: Date of Thrive Assessment Date Thrive assessed 08/02/23 02/20/24 15:09 Const General: alert; No acute distress Eyes Conjunctivae: conjunctivae normal Resp Auscultation: clear to auscultation bilaterally Cardio Rate: regular rate Rhythm: regular rhythm GI Inspection: Yes normal to inspection Extrem General: Yes normal to inspection and No edema Assessment and Plan Assessment & Plan (1) Degenerative arthritis of knee, bilateral: Code(s): M17.0 - Bilateral primary osteoarthritis of knee Plan: Patient has seen Orthopedics and had injections done x-ray did confirm osteoarthritis moderate to severe (2) Type 2 diabetes mellitus with hyperglycemia: Code(s): E11.65 - Type 2 diabetes mellitus with hyperglycemia Plan: Decrease the amount of carbohydrate intake, pasta, bread, rice and potatoes are all sugar and that is aside from all the sweet stuff, remember that fruits are good but they are Sweet also. Hemoglobin A1c goal of less than 6.5. Patient is diet controlled (3) Hypertension: Code(s): I10 - Essential (primary) hypertension Qualifiers: Hypertension type: primary hypertension Qualified Code(s): I10 - Essential (primary) hypertension Plan: Continue with blood pressure medication. Decrease salt intake and exercise on losartan 50 mg once a day. Blood pressure is still elevated will increase losartan to 100 mg once a day (4) Hypercholesterolemia: Code(s): E78.00 - Pure hypercholesterolemia, unspecified Plan: Avoid fried foods, chicken skin, eggs, butter margarine, pastries and meat. Be it pork or beef they have a lot of cholesterol LDL goal of less than 100 and triglyceride of less than 150. (5) GERD (gastroesophageal reflux disease): Code(s): K21.9 - Gastro-esophageal reflux disease without esophagitis Qualifiers: Esophagitis presence: without esophagitis Qualified Code(s): K21.9 - Gastro-esophageal reflux disease without esophagitis Plan: Avoid the foods that causes that usually spicy foods, tomato products, juices, coffee, soda and foods that your sensitive to. After eating do not lie down, allow 3-4 hours before in lie down. And keep the head of bed above 30 degrees to avoid the acid from going up. (6) Urinary frequency: Code(s): R35.0 - Frequency of micturition Plan: Patient was advised urinalysis as well as doing an ultrasound of the bladder and kidney Orders: Orders Comprehensive Met. Panel 3 Months E78.00 - Pure hypercholesterolemia, unspecified Lipid Panel 3 Months E78.00 - Pure hypercholesterolemia, unspecified US bladder Today R35.0 - Frequency of micturition US renal BI Today R35.0 - Frequency of micturition UA CC w/rflx Micro + Cult Today R30.0 - Dysuria, R35.0 - Frequency of micturition Medications: Changed From losartan 50 mg PO DAILY 90 tabs 1RF I10 - Essential (primary) hypertension To losartan 100 mg PO DAILY 30 tabs 3RF I10 - Essential (primary) hypertension Refilled simvastatin 10 mg PO BEDTIME 90 tabs 3RF Coding Level of Care Code Est Pt Level 4 (81745) Complex EM visit Add On G2211 Diagnoses Degenerative arthritis of knee, bilateral M17.0 Type 2 diabetes mellitus with hyperglycemia E11.65 Primary hypertension I10 Hypertension type: primary hypertension Hypercholesterolemia E78.00 Gastroesophageal reflux disease without esophagitis K21.9 Esophagitis presence: without esophagitis Urinary frequency R35.0
[2024-02-20 15:27] VITALS: BP 146/80
== END 2024-02-20 15:39 | disposition home or self-care (01) ==
PROVIDERS: PCP Internal Medicine; Visit Provider Internal Medicine
DX: M17.0 Bilateral primary osteoarthritis of knee (principal); E11.65 Type 2 diabetes mellitus with hyperglycemia; I10 Essential (primary) hypertension; E78.00 Pure hypercholesterolemia, unspecified; K21.9 Gastro-esophageal reflux disease without esophagitis; R35.0 Frequency of micturition

== ENCOUNTER → 2024-02-20 15:04 | Outpatient (BNVA) | payer BC, SELFPAY | PROVIDERS: PCP Internal Medicine; Visit Provider Internal Medicine ==

== ENCOUNTER 2024-02-28 15:02 | Outpatient (REF) | payer BC, SELFPAY ==
[2024-02-28 17:26] LABS: Alanine Aminotransferase 15 U/L (0-31); Alkaline Phosphatase 97 U/L (39-117); Anion Gap 10 (12-20); Aspartate Amino Transferase 13 U/L (5-31); Bilirubin Total 0.3 mg/dL (0.0-1.0); Blood Urea Nitrogen 13 mg/dL (9-16); Calcium 10.3 mg/dL (8.4-10.2); Carbon Dioxide 29 mmol/L (22-29); Chloride 105 mmol/L (96-108); Cholesterol 178 mg/dL (<200); Estimated Glomerular Filt Rate > 60; Glucose Random 102 mg/dL (60-115); HDL Cholesterol 44 mg/dL (>40); LDL Cholesterol Calculated 110 mg/dL (<100); Potassium 3.8 mmol/L (3.3-5.1); Sodium 140 mmol/L (135-145); Total Protein 7.5 g/dL (6.5-8.0); Triglycerides 124 mg/dL (<150)
[2024-02-28 17:30] LABS: Appearance Urine Clear; Color Urine Yellow; Glucose Urine UA Negative (Negative); Leukocyte Esterase Urine Trace (Negative); Nitrite Urine Negative (Negative); PH 6.5 (5.0-9.0); Specific Gravity - Urine <= 1.005 (1.005-1.025); UMIC TRIGGER UACC YES; Urine Blood Negative (Negative); Urine Ketones Negative (Negative); Urine Protein Negative (Neg-Trace)
[2024-02-28 17:36] LABS: Bacteria Urine None Seen (None Seen); Hyaline Casts Urine 0-2 /LPF (0-2); RBC Urine 0-2 /HPF (0-2); Squamous Epithelial Cell Urine 0-2 /HPF (0-2); WBC Urine 0-5 /HPF (0-5)
== END 2024-02-28 15:03 | disposition home or self-care (01) ==
LOC: HO.US 15:02
PROVIDERS: PCP Internal Medicine; Visit Provider Internal Medicine
DX: E78.00 Pure hypercholesterolemia, unspecified (principal); R35.0 Frequency of micturition
CPT/HCPCS: 36415; 76770; 80053; 80061; 81001

== ENCOUNTER 2024-04-13 13:24 | Outpatient (AMB) | payer BC, SELFPAY ==
--- NOTE | 2024-04-13 12:06 | MHC.OFFVIS ---
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 Denies urinary incontinence. Has some postvoid dribbling. After urinate I think I am done but then there is more that comes out. History of kidney stones had previous ESWL. Review of chart - 02/28/24-- renal US--2mm Right Kidney. UA--today 1+ blood I have discussed reasons for blood in the urine may include but are not limited to kidney stones, cancer in the urinary tract, BPH, or inflammatory conditions of the urinary tract. I have discussed workup to include cystoscopy hydrodistion. [facility] Medical History Impaired glucose tolerance Dysuria Hypertension Hospital discharge follow-up Sigmoid diverticulitis Hypokalemia Thrush Diverticulitis Tongue burning sensation Tongue abnormality Diverticulitis large intestine w/o perforation or abscess w/o bleeding Anemia Acute allergic reaction Fatty liver Irritable bowel syndrome History of renal calculi Hypercholesterolemia GERD (gastroesophageal reflux disease) Obesity (BMI 30-39.9) Surgical History Hx of colonoscopy History of esophagogastroduodenoscopy (EGD) Hx of arthroscopy of left knee Hx of arthroscopy of right knee History of lithotripsy Hx of appendectomy H/O tubal ligation History of abdominal hysterectomy Family History Father Brain tumor Mother Hypertension CVD (cardiovascular disease) Social History Household Members: Spouse Housing: House Do you presently have visiting nurse or other home services: No Alcohol intake: never Patient Tobacco Use Status: Never used Tobacco e-Cigarette/Vaping Use: Never Used Second Hand Smoke Exposure: No service: No Current occupational status: employed Current occupational exposures/hazards: No Cognitive needs: No Hearing needs: No Vision needs: Yes Review of Systems Const All systems reviewed & are unremarkable except as noted in HPI and below Reports no additional complaints Eyes Reports no additional complaints ENT Reports no additional complaints Card Reports no additional complaints Resp Reports no additional complaints GI Reports no additional complaints Reports as per HPI Musc Reports no additional complaints Skin/Breast Reports system reviewed and no additional complaints, except as documented Neuro Reports no additional complaints Psych Reports no additional complaints Endo Reports no additional complaints Chriss/Lymph Reports no additional complaints Aller/Immun Reports no additional complaints Physical Exam Const General: cooperative, healthy appearing and no acute distress Orientation/consciousness: patient oriented x3 HEENT Head: Yes normal to inspection, Yes normocephalic and Yes atraumatic Eyes Conjunctivae: conjunctivae normal Neck Neck: Yes normal visual inspection and Yes trachea midline Chest Chest palpation & inspection: normal inspection of the chest Resp Effort & Inspection: normal respiratory effort Cardio Rate: regular rate GI Inspection: Yes normal to inspection Palpation (GI): Soft to palpation Neuro General: patient oriented x3 Extrem General: No edema Psych Appearance: grossly normal Office Procedures Post Void Residual Post Residual Void Post Void Residual (PVR): 0 [id number]-[id number] Void Residual by ultrasound Results AMB Urinalysis, Automated UA Leukoctes 0 Sonia/uL Last Edit by FRAN Horn on 04/13/24 13:35 UA Nitrite Negative Last Edit by FRAN Horn on 04/13/24 13:35 UA Urobilinogen 0.2 mg/dL Last Edit by FRAN Horn on 04/13/24 13:35 UA Protein 15 mg/dL Last Edit by FRAN Horn on 04/13/24 13:35 UA pH 6.0 Last Edit by FRAN Horn on 04/13/24 13:35 UA Blood 25 Lucian/uL Last Edit by FRAN Horn on 04/13/24 13:35 UA Specific [place] 1.030 Last Edit by FRAN Horn on 04/13/24 13:35 UA Ketone Negative Last Edit by FRAN Horn on 04/13/24 13:35 UA Bilirubin 0 mg/dL Last Edit by FRAN Horn on 04/13/24 13:35 UA Glucose 0 mg/dL Last Edit by FRAN Horn on 04/13/24 13:35 Results Reviewed Results Reviewed: Laboratory Last Values Urine pH (Auto) 6.0 04/13/24 13:32 Specific [place] (Auto) 1.030 04/13/24 13:32 Urine Protein (Auto) 15 mg/dL 04/13/24 13:32 Glucose (UA)(Auto) 0 mg/dL 04/13/24 13:32 Urine Ketones (Auto) Negative 04/13/24 13:32 Urine Blood (Auto) 25 Lucian/uL 04/13/24 13:32 Urine Nitrite (Auto) Negative 04/13/24 13:32 Urine Bilirubin (Auto) 0 mg/dL 04/13/24 13:32 Urine Urobilinogen (Auto) 0.2 mg/dL 04/13/24 13:32 Leukocyte Esterase (Auto) 0 Sonia/uL 04/13/24 13:32 I reviewed renal ultrasound films-02/28/2024--right kidney stone 2 mm Assessment & Plan Assessment & Plan (1) Microscopic hematuria: Code(s): R31.29 - Other microscopic hematuria Category: Medical (2) Kidney stone: Code(s): N20.0 - Calculus of kidney Category: Medical (3) Bladder pain: Code(s): R39.89 - Other symptoms and signs involving the genitourinary system Category: Medical Plan urine cytology, cystoscopy hydrodistension Orders: Orders AMB Urinalysis Automated 04/13/24 Z13.9 - Encounter for screening, unspecified Urine Cytology 04/13/24 N39.0 - Urinary tract infection, site not specified Medications: Discontinued acetaminophen (Tylenol Extra Strength) Discontinued Reason: Patient no longer taking 1,000 mg (2 x 500 mg) PO Q6H PRN 20 tabs 0RF fever or pain naproxen Discontinued Reason: Patient no longer taking 500 mg PO BID 7 days 14 tabs 0RF ketorolac Discontinued Reason: Patient no longer taking 10 mg PO TID 5 days PRN 15 tabs 0RF pain simethicone (Gas Relief (simethicone)) Discontinued Reason: Patient no longer taking 125 mg PO TID-QID PRN 120 caps 2RF abdominal distention Coding Level of Care Code New Pt Level 4 (92646) Diagnoses Microscopic hematuria R31.29 Kidney stone N20.0 Bladder pain R39.89 CPT Codes Post Residual Void - PVR CPT Code: 52979-[id number] Void Residual by ultrasound ([id number])
== END 2024-04-13 13:58 | disposition home or self-care (01) ==
PROVIDERS: PCP Internal Medicine; Visit Provider Urology
DX: Z13.9 Encounter for screening, unspecified (principal)
CPT/HCPCS: 99204

== ENCOUNTER 2024-04-13 13:24 | Outpatient (REF) | payer BC, SELFPAY ==
[2024-04-13 16:23] LABS: Urine Cytology See Pathology rpt
== END 2024-04-13 13:25 | disposition home or self-care (01) ==
LOC: HO.LNP 13:24
PROVIDERS: PCP Internal Medicine; Visit Provider Urology
DX: N39.0 Urinary tract infection, site not specified (principal); R31.29 Other microscopic hematuria; N20.0 Calculus of kidney; R39.89 Other symptoms and signs involving the genitourinary system
CPT/HCPCS: 51798; 81003; 88112

== ENCOUNTER 2024-05-11 15:41 | Outpatient (AMB) | payer BC, SELFPAY ==
[2024-05-11 15:48] VITALS: BP 146/88; PULSE 94; O2SAT 98; BMI 31.8
--- NOTE | 2024-05-11 15:48 | A.OFFVIS_ITS ---
Vital Signs 05/11/24 15:48 Height 5 ft 2 in Weight 173 lb 11.588 oz BMI 31.8 BP 146/88 H Blood Pressure Location Lt brachial Position Sitting Pulse 94 Pulse Source Pulse Oximeter Pulse Oximetry (%) 98 Oxygen Delivery Method Room Air Intake Visit Reasons: 3 month follow up Intake Note: ESTABLISHED PATIENT Christel presents in office today for a scheduled 3 mos FUV. Meds and Allergies reviewed? Y No recent or relevant surgeries? N Any significant concerns or new changes? LLQ Pain and Groin area. Pharmacy verified? [facility] [employer] Super[employer] Required: No Allergies lisinopril Adverse Reaction (Intermediate, Verified 05/11/24 15:48) Cough HPI HPI 3 month follow up: Details: LAST VISIT: Diverticular disease Constipation Epigastric abdominal pain GERD (gastroesophageal reflux disease) Plan Patient will continue pantoprazole daily. Take Linzess , increase fluid intake and activity to promote better bowel motility. Referral to urology. Patient reports bladder fullness and frequency with abdominal pain and cramping. Patient is to call the office when she will experience this pain again. Will order CT of abdomen and pelvis. History of sigmoid diverticulitis. Patient will follow-up in 3 months, sooner on as needed basis. She is agreeable to this plan and bridger louisezes understanding of instructions. She was given the opportunity to ask questions and all questions answered. ? Thank you for allowing me to participate in her care Orders Referrals Urology Referral Z87.898 TODAY'S VISIT Patient is here today for follow-up. Patient reports that she continues to have a left lower quadrant pain. Patient reports that the pain is there almost constantly less intense than before when she was diagnosed with diverticulitis. Patient seen urologist and will be going for cystoscopy on of this month for hydrodistention. Patient denies any fever or chills. Patient denies any mucus, bloody or black stool. Bowel movements formed about 2 times a day. She continues to take Linzess daily and it reports that it works. Some how CT scan was never done since last visit. We will plan on ordering that today. Patient denies nausea or vomiting. Patient reports bloating all the time not related to meals. Patient reports reflux under control. She takes pantoprazole daily and her symptoms are suppressed. [facility] Medical History (Updated 05/11/24 @ 16:[address] [facility]) History of diverticulitis Dysuria Diverticulitis large intestine w/o perforation or abscess w/o bleeding Hypokalemia Anemia Impaired glucose tolerance Acute allergic reaction Fatty liver Irritable bowel syndrome Hypertension History of renal calculi Hypercholesterolemia GERD (gastroesophageal reflux disease) Obesity (BMI 30-39.9) Surgical History Hx of colonoscopy History of esophagogastroduodenoscopy (EGD) Hx of arthroscopy of left knee Hx of arthroscopy of right knee History of lithotripsy Hx of appendectomy H/O tubal ligation History of abdominal hysterectomy Family History Father Brain tumor Mother Hypertension CVD (cardiovascular disease) Social History Household Members: Spouse Housing: House Do you presently have visiting nurse or other home services: No Alcohol intake: never Patient Tobacco Use Status: Never used Tobacco e-Cigarette/Vaping Use: Never Used Second Hand Smoke Exposure: No service: No Current occupational status: employed Current occupational exposures/hazards: No Cognitive needs: No Hearing needs: No Vision needs: Yes Review of Systems Const Denies weight gain and Denies weight loss ENT Reports no additional complaints, Denies dysphagia and Denies odynophagia Card Reports no additional complaints Resp Reports no additional complaints GI Reports abdominal pain (LLQ), Denies belching, Denies melena, Reports bloating, Denies change in bowel habits, Denies dysphagia, Denies excessive flatus, Denies dyspepsia, Denies heartburn, Denies diarrhea, Denies loose stools, Denies nausea, Denies odynophagia and Denies vomiting Musc Reports no additional complaints Neuro Reports no additional complaints Psych Reports no additional complaints Endo Reports no additional complaints Physical Exam Vital Signs: Last Vital Signs Pulse 94 05/11/24 15:48 BP 146/88 H 05/11/24 15:48 Pulse Ox 98 05/11/24 15:48 Oxygen Delivery Method Room Air 05/11/24 15:48 BMI result Body Mass Index 31.8 Const General: healthy appearing and no acute distress Nutritional Appearance: obese Orientation/consciousness: patient oriented x3 Resp Effort & Inspection: normal respiratory effort, able to speak in complete sentences, no tracheal deviation and symmetric chest movement Auscultation: clear to auscultation bilaterally Cardio Rate: regular rate GI Inspection: Yes normal to inspection, No distended and Yes obesity Palpation (GI): Soft to palpation, not firm, nontender and No hepatosplenomegaly present Auscultation: normal bowel sounds General: Yes no CVA tenderness Back/Spine/Pelvis Back: no CVA tenderness Skin General skin exam: elasticity normal, turgor normal and dry skin Neuro General: patient oriented x3 Psych Appearance: grossly normal Mental Status: mental status grossly normal Assessment & Plan Assessment & Plan (1) History of diverticulitis: Code(s): Z87.19 - Personal history of other diseases of the digestive system Category: Medical (2) Diverticular disease: Code(s): K57.90 - Diverticulosis of intestine, part unspecified, without perforation or abscess without bleeding Category: Medical (3) Constipation: Code(s): K59.00 - Constipation, unspecified Category: Medical Qualifiers: Constipation type: slow transit constipation Qualified Code(s): K59.01 - Slow transit constipation (4) Epigastric abdominal pain: Code(s): R10.13 - Epigastric pain Category: Medical (5) GERD (gastroesophageal reflux disease): Code(s): K21.9 - Gastro-esophageal reflux disease without esophagitis Category: Medical Qualifiers: Esophagitis presence: without esophagitis Qualified Code(s): K21.9 - Gastro-esophageal reflux disease without esophagitis Plan Continue pantoprazole daily. Avoid dietary triggers and late night snacking. Patient has tenderness in the left lower quadrant no fever, no chose. History of diverticulitis, twice this year and wants last year. Patient will be sent for urgent CT scan. Patient was urged to watch her symptoms and if she becomes with fevers, diarrhea, mucus or blood in her stools to go to ER immediately. I will see patient in 6 weeks. Patient will call our office if she will have any GI concerning symptoms. Patient is agreeable to current plan of care and verbalizes understanding of instructions. She was given the opportunity to ask questions and all questions answered. Thank you for allowing me to participate in her care Orders: Orders CT abdomen pelvis w IV con 05/11/24 K57.90 - Diverticulosis of intestine, part unspecified, without perforation or abscess without bleeding, R10.9 - Unspecified abdominal pain, Z87.19 - Personal history of other diseases of the digestive system Coding Level of Care Code Est Pt Level 4 (65784) Diagnoses History of diverticulitis Z87.19 Diverticular disease K57.90 Slow transit constipation K59.01 Constipation type: slow transit constipation Epigastric abdominal pain R10.13 Gastroesophageal reflux disease without esophagitis K21.9 Esophagitis presence: without esophagitis Time Spent (min) 35 Comment 20 minutes spent with patient and additional 15 minutes spent reviewing her records
== END 2024-05-11 16:17 | disposition home or self-care (01) ==
PROVIDERS: PCP Internal Medicine; Visit Provider Nurse Practitioner Family
DX: Z87.19 Personal history of other diseases of the digestive system (principal); K57.90 Diverticulosis of intestine, part unspecified, without perforation or abscess without bleeding; K59.01 Slow transit constipation; R10.13 Epigastric pain; K21.9 Gastro-esophageal reflux disease without esophagitis
CPT/HCPCS: 99214

== ENCOUNTER → 2024-05-11 15:41 | Outpatient (BNVA) | payer BC, SELFPAY | PROVIDERS: PCP Internal Medicine; Visit Provider Nurse Practitioner Family ==

== ENCOUNTER 2024-05-15 07:56 | Day surgery (SDC) | payer BC, SELFPAY ==
[2024-05-10 15:40] VITALS: BMI 31.8
--- NOTE | 2024-05-14 09:30 | P.CONAN_ITS ---
Documented by User: Liza Moore NP 05/14/24 09:31 HPI - Anesthesia Eval Consult details Narrative: 58yo F for Cystoscopy Hydrodistention of Bladder PMFSH Active Problems Active Problems: All Active Problems History of diverticulitis (Acute) Bladder pain (Acute) Kidney stone (Acute) Microscopic hematuria (Acute) Urinary frequency (Acute) Degenerative arthritis of knee, bilateral (Acute) Vaginal lesion (Acute) Vaginal bleeding (Acute) Type 2 diabetes mellitus with hyperglycemia (Acute) Hyperparathyroidism (Acute) Hypercalcemia (Acute) UTI (urinary tract infection) (Acute) Painful tongue (Acute) Annual physical exam (Acute) Diverticular disease (Acute) Shoulder pain, right (Acute) Constipation (Acute) Gastric erosions (Acute) Epigastric abdominal pain (Acute) Hair loss (Acute) COVID-19 (Acute) Plantar fasciitis of right foot (Acute) Vitamin D deficiency (Acute) Dysuria (Acute) Hypertension (Acute) Acute allergic reaction (Acute) History of renal calculi (Acute) Hypercholesterolemia (Acute) GERD (gastroesophageal reflux disease) (Acute) Past Medical History Medical History History of diverticulitis Dysuria Diverticulitis large intestine w/o perforation or abscess w/o bleeding Hypokalemia Anemia Impaired glucose tolerance Acute allergic reaction Fatty liver Irritable bowel syndrome Hypertension History of renal calculi Hypercholesterolemia GERD (gastroesophageal reflux disease) Obesity (BMI 30-39.9) Family History Family History Father Brain tumor Mother Hypertension CVD (cardiovascular disease) Family history of problems with anesthesia: No Surgical History Surgical History Hx of colonoscopy History of esophagogastroduodenoscopy (EGD) Hx of arthroscopy of left knee Hx of arthroscopy of right knee History of lithotripsy Hx of appendectomy H/O tubal ligation History of abdominal hysterectomy History of Problems with Anesthesia: No Social History Social History Household Members: Spouse Housing: House Are you a primary patient care manager to a significant other at home: No Do you presently have visiting nurse or other home services: No Alcohol intake: never Patient Tobacco Use Status: Never used Tobacco e-Cigarette/Vaping Use: Never Used Second Hand Smoke Exposure: No Use of substances other than those prescribed or required for medical reasons: No Have you been hit, kicked, punched, or otherwise hurt by someone within the past year? If so, by whom?: No Are you DNR?: No Advance Directives: No Advance Directives Information Provided: Yes Advance Directives on File: No Recently lost weight without trying: No Nutrition Risks: No Nutritional Risk Patient : No service: No Current occupational status: employed Current occupational exposures/hazards: No Cognitive needs: No Hearing needs: No Vision needs: Yes Meds Allergies Allergy/AdvReac Type Severity Reaction Status Date / Time lisinopril AdvReac Intermediate Cough Verified 05/15/24 08:25 Exam Height,Weight and Vital Signs: Height 5 ft 2 in Weight 78.925 kg Pertinent Lab Results Pertinent Lab Results: Laboratory Tests 02/17/24 02/28/24 08:15 16:35 WBC 7.3 Hgb 13.1 Hct 40.0 Plt Count 286 Sodium 140 Potassium 3.8 Chloride 105 Carbon Dioxide 29 BUN 13 Creatinine 0.79 Assessment and Plan Assessment Anesthesia Assessment: Chart Reviewed Final Anesthetic Review Family History of Problems with Anesthesia: No History of Problems with Anesthesia: No Documented by User: Rodney Fuller MD 05/15/24 09:10 [facility] Past Medical History Medical History History of diverticulitis Dysuria Diverticulitis large intestine w/o perforation or abscess w/o bleeding Hypokalemia Anemia Impaired glucose tolerance Acute allergic reaction Fatty liver Irritable bowel syndrome Hypertension History of renal calculi Hypercholesterolemia GERD (gastroesophageal reflux disease) Obesity (BMI 30-39.9) Family History Family History Father Brain tumor Mother Hypertension CVD (cardiovascular disease) Surgical History Surgical History Hx of colonoscopy History of esophagogastroduodenoscopy (EGD) Hx of arthroscopy of left knee Hx of arthroscopy of right knee History of lithotripsy Hx of appendectomy H/O tubal ligation History of abdominal hysterectomy Social History Social History Household Members: Spouse Housing: House Are you a primary patient care manager to a significant other at home: No Do you presently have visiting nurse or other home services: No Alcohol intake: never Patient Tobacco Use Status: Never used Tobacco e-Cigarette/Vaping Use: Never Used Second Hand Smoke Exposure: No Use of substances other than those prescribed or required for medical reasons: No Have you been hit, kicked, punched, or otherwise hurt by someone within the past year? If so, by whom?: No Are you DNR?: No Advance Directives: No Advance Directives Information Provided: Yes Advance Directives on File: No Recently lost weight without trying: No Nutrition Risks: No Nutritional Risk Patient : No service: No Current occupational status: employed Current occupational exposures/hazards: No Cognitive needs: No Hearing needs: No Vision needs: Yes Meds Allergies Allergy/AdvReac Type Severity Reaction Status Date / Time lisinopril AdvReac Intermediate Cough Verified 05/15/24 08:25 Exam Airway Mallampati Class: III TM Dist: >3cm Neck ROM: Full Assessment and Plan Assessment Anesthesia Assessment: Anesthesia Plan Discussed Final Anesthetic Review NPO: Yes ASA Class: III Final Preanesthetic Review: No Changes in Pt Med Stat, Meds/Allgs Chart Reviewed, Consent Obtained/Reviewed and Anes Risks/Benef Reviewed Patient Risk: Intermediate Procedure Risk: Low Anesthetic Plan Anesthetic Plan: GA Disposition: Standard PACU
[2024-05-15 08:26] VITALS: BMI 31.5
[2024-05-15 08:49] VITALS: BP 176/98; PULSE 78; RESP 16; TEMP 36.3; O2SAT 95
[2024-05-15] MEDS: Lactated Ringers 1,000 ML 100 ML IVCONT (08:54)
--- NOTE | 2024-05-15 09:20 | MHC.SHP ---
Pre-Procedural Eval Section A - 24 Hr Update-Section A only Date of Service: 05/15/24 The patient is an INPATIENT: No The patient has been examined within 24 hours of the surgical procedure. The History & Physical has been completed within 30 days and I have reviewed it.: Yes Section B - Complete if H&P > 30 days Chief Complaint: other microscopic hematuria Allergies: Allergies Allergy/AdvReac Type Severity Reaction Status Date / Time lisinopril AdvReac Intermediate Cough Verified 05/15/24 08:25 Plan Diagnosis/Plan: Unchanged I have reviewed the history and physical and performed a pertinent physical examination on my patient. No changes have occurred unless specified. Cystoscopy. Discussed risks to include but not limited to, blood in the urine, burning with urination, urgency. Time Spent With Patient Time: Total time managing care of this patient today ____ minutes.
--- NOTE | 2024-05-15 10:04 | W.PM.OPN ---
Operative Note Operative Note Date of Service: 05/15/24 Narrative: PREOP DIAGNOSIS: microscopic hematuria, dysuria POSTOP DIAGNOSIS: microscopic hematuria, dysuria, bladder wall thickening PROCEDURE: CYSTOSCOPY HYDRODISTENTION Anethesia: General Surgeon: Dr. Hector Hays Details of procedure: The patient was brought into the operating room placed on the OR table in supine position. 2 g of Ancef IV. General anesthesia was administered. The patient was repositioned into lithotomy position, prepped and draped in the usual sterile fashion. Time-out was done per protocol. A 22 fr cystoscope was placed transurethrally into the bladder. Urine was drained from the bladder measuring 60 mL, urine was sent for culture. The right and left ureteral orifices were visualized. The entire bladder was visualized. There were no suspicious bladder lesions seen. There were moderate trabeculations noted. The bladder was filled with sterile water at 80 cm of water pressure under gravity. The bladder was distended for 2 minutes. Bladder capacity measured 450 mL. Revisualization of the bladder, noted minimal petechiae focally. No glomerulations or Hunner's ulcerations noted. The bladder was refilled with sterile water again at 80 cm of water pressure under gravity. The bladder was distended for 3 minutes. The fluid was drained from the bladder and measured 500 mL. The cystoscope was removed. 2% lidocaine urojet was passed transurethrally, Solution of (1% lidocaine plain, 15 mL, 0.5 % Marcaine 15 mL mixed with 30, 000 units of heparin concentration 5000 units per mL total of 6 mL hepaine) instilled transurethrally into the bladder. Belladonna suppository placed rectally. The patient was brought out of anesthesia and taken to recovery in stable condition. Complications: None Drains: none
[2024-05-15 10:10] VITALS: BP 143/84; PULSE 76; RESP 15; TEMP 36.3; O2SAT 97
[2024-05-15 10:15] VITALS: BP 143/84; PULSE 75; RESP 16; O2SAT 97
[2024-05-15 10:20] VITALS: BP 144/87; PULSE 71; RESP 16; O2SAT 98
[2024-05-15 10:25] VITALS: BP 148/89; PULSE 71; RESP 16; O2SAT 98
[2024-05-15] MEDS: Phenazopyridine HCL 200 MG TABLET PO (10:26)
[2024-05-15 10:40] VITALS: BP 159/92; PULSE 68; RESP 16; TEMP 36.1; O2SAT 97
== END 2024-05-15 11:11 | disposition home or self-care (01) ==
PROVIDERS: PCP Internal Medicine; Visit Provider Urology
PROC: 0T7B7ZZ Dilation of Bladder, Via Natural or Artificial Opening (ICD-10-PCS; CPT 52000; principal; 2024-05-15 09:30)
DX: R31.29 Other microscopic hematuria (principal); R30.0 Dysuria; N32.89 Other specified disorders of bladder
CPT/HCPCS: 52000; 87086; J0690; J1644; J2003; J2795

== ENCOUNTER → 2024-05-15 07:56 | Outpatient (BNV) | payer BC, SELFPAY | PROVIDERS: PCP Internal Medicine; Visit Provider Urology | DX: R31.29 Other microscopic hematuria (principal); R30.0 Dysuria | CPT/HCPCS: 52260 ==

== ENCOUNTER 2024-05-25 06:13 | Outpatient (REF) | payer BC, SELFPAY ==
[2024-05-25 09:00] LABS: Blood Urea Nitrogen 12 mg/dL (9-16); Estimated Glomerular Filt Rate > 60
== END 2024-05-25 06:14 | disposition home or self-care (01) ==
LOC: HO.LAB 06:13
PROVIDERS: PCP Internal Medicine; Visit Provider Nurse Practitioner Family
DX: R10.11 Right upper quadrant pain (principal)
CPT/HCPCS: 36415; 82565; 84520

== ENCOUNTER 2024-05-25 10:58 | Emergency (ER) | payer BC, SELFPAY ==
[2024-05-25 11:14] VITALS: BP 173/93; PULSE 95; RESP 20; TEMP 36.1; O2SAT 96; BMI 31.7
--- NOTE | 2024-05-25 11:14 | ED_ITS ---
HPI - General Adult General Chief complaint: Abdominal Pain Stated complaint: Abd pain Time Seen by Provider: 05/25/24 17:43 Source: patient Mode of arrival: ambulatory Limitations: no limitations History of Present Illness ED Provider: Wily John PA-C HPI narrative: 58 yo female with history of DM2, kidney stones, hyperparathyroidism, diverticulitis, HTN, GERD, HLD who presents to the ER for evaluation of aching LUQ abdominal pain that started yesterday after eating rice. No associated N/V/D. Normal BM today. no urinary symptoms. pain does not radiate and remains in the LUQ. Nothing makes it better or worse. No cough, chest pain, fever or chills. MD complaint: LUQ pain Onset (ago): day(s) (1) Location: abdomen Severity: moderate Severity scale (1-10): 6 Quality: aching Pain Consistency: constant Relieving factors: none Exacerbating factors: none Associated symptoms: denies other symptoms Treatments prior to arrival: none Related Data Previous Rx's ?Medication ?Instructions ?Recorded pantoprazole 40 mg tablet,delayed 40 mg PO DAILY@0630 #90 tabs 11/08/23 release linaclotide 145 mcg capsule 145 mcg PO DAILY #90 caps 11/09/23 (Linzess) simvastatin 10 mg tablet 10 mg PO BEDTIME #90 tabs 02/20/24 doxycycline hyclate 100 mg capsule 100 mg PO BID 5 days #10 caps 05/15/24 phenazopyridine 200 mg tablet 200 mg PO TID Urinary burning, 05/15/24 (Pyridium) pain #9 tabs losartan 100 mg tablet 100 mg PO DAILY #90 tabs 05/18/24 omeprazole 20 mg capsule,delayed 20 mg PO DAILY #14 caps 05/25/24 release Allergies Allergy/AdvReac Type Severity Reaction Status Date / Time lisinopril AdvReac Intermediate Cough Verified 05/25/24 11:15 Review of Systems 2 Review of Systems: Yes all other systems are reviewed and are negative [facility] Past Medical History Medical History (Updated 05/25/24 @ 18:31 by SILVIANO Metzger) History of diverticulitis Dysuria Diverticulitis large intestine w/o perforation or abscess w/o bleeding Hypokalemia Anemia Impaired glucose tolerance Acute allergic reaction Fatty liver Irritable bowel syndrome Hypertension History of renal calculi Hypercholesterolemia GERD (gastroesophageal reflux disease) Obesity (BMI 30-39.9) Surgical History Hx of colonoscopy History of esophagogastroduodenoscopy (EGD) Hx of arthroscopy of left knee Hx of arthroscopy of right knee History of lithotripsy Hx of appendectomy H/O tubal ligation History of abdominal hysterectomy Family History Family History Father Brain tumor Mother Hypertension CVD (cardiovascular disease) Social History Social History Household Members: Spouse Housing: House Are you a primary date night caregiver to a significant other at home: No Do you presently have visiting nurse or other home services: No Alcohol intake: never Patient Tobacco Use Status: Never used Tobacco e-Cigarette/Vaping Use: Never Used Second Hand Smoke Exposure: No Advance Directives: No Advance Directives Information Provided: Yes Do you have a plan to hurt others: No Plan service: No Current occupational status: employed Current occupational exposures/hazards: No Cognitive needs: No Hearing needs: No Vision needs: Yes Physical Exam ED Vital Signs: Vital Signs - 24 hr 05/25/24 11:14 05/25/24 17:52 05/25/24 18:38 Temperature 97.0 F 96.8 F Pulse Rate 95 77 Respiratory Rate 20 16 Blood Pressure 173/93 H 184/103 H 184/103 H Pulse Oximetry 96 96 Oxygen Delivery Method Room Air Room Air 05/25/24 19:43 Temperature 96.9 F Pulse Rate 70 Respiratory Rate 16 Blood Pressure 149/97 H Pulse Oximetry 97 Oxygen Delivery Method Room Air BMI result Body Mass Index 31.7 Appearance: Alert. Oriented X3. No acute distress. Head: normocephalic, atraumatic. Eyes: Pupils equal, round and reactive to light. ENT: Pharynx normal. No tonsillar swelling or exudate. Neck: Normal inspection. Neck supple. CVS: Normal heart rate and rhythm. Pulses normal. Respiratory: No respiratory distress. Breath sounds normal. Abdomen: Soft with mild tenderness to the LUQ without rebound or guarding. +BS x4 Skin: Skin warm and dry. Normal skin color. Normal skin turgor. No rashes. Extremities: No lower extremity edema. No joint swelling. Neuro/psych: Oriented X 3. No motor deficit. No sensory deficit. CN II-XII intact. Normal speech and cognition. Course Course Course Narrative: This is a rapid medical exam performed by Ariane Sandoval NP: Additional HPI, ROS, PE not included below will be deferred to primary provider. Patient is a 58-year-old female presenting with complaint of LUQ abd pain since yesterday, worse today. Denies N/V/D. Plan: labs Reevaluation(s) Reevaluation #1: Received patient in sign out pending reassessment. BP improved and patient reports good relief of symptoms after medications given in the ED, feel she is stable for discharge at this time. Time: 19:56 Medications Administered Discontinued Medications Generic Name Dose Route Start Last Admin Trade Name Jona PRN Reason Stop Dose Admin Al Hydroxide/Mg Hydroxide 30 ml 05/25/24 17:59 05/25/24 18:39 Magnesium Hydrox/Alum Hydrox 30 Ml Oral.Susp PO 05/25/24 18:00 30 ml ONCE ONE Administration Belladonna Alkaloids/Phenobarbital 10 ml 05/25/24 17:59 05/25/24 18:38 Phenobarb/Hyoscy/Atropine/Scop 10 Ml Elixir PO 05/25/24 18:00 10 ml ONCE ONE Administration Lidocaine HCl 15 ml 05/25/24 17:59 05/25/24 18:39 Lidocaine Hcl Viscous 2 % 15 Ml Solution MUCOUS MEM 05/25/24 18:00 15 ml ONCE ONE Administration Losartan Potassium 100 mg 05/25/24 17:59 05/25/24 18:38 Losartan Potassium 50 Mg Tablet PO 05/25/24 18:00 100 mg ONCE ONE Administration Protocol Medical Decision Making Medical Decision Making MDM Narrative: 58-year-old female with history diabetes, diverticulitis, kidney stones who presents to the ER for evaluation of left upper quadrant pain that started yesterday after eating rice. No associated nausea, vomiting, diarrhea. Her abdominal exam is benign. Her lab workup was unremarkable. She does have some elevated white blood cells and leukocytes in her urine however there is also squamous cells suggest contamination. She has no urinary symptoms. No blood in her urine to suggest kidney stone. Blood pressure noted to be elevated 180 systolic. She reports she has not taken her BP pending today. These have been ordered. Most likely etiology of her left upper quadrant pain is gastritis versus GERD. Oral GI cocktail has been ordered. Will reassess. Differential Diagnosis Differential Diagnoses: The differential diagnosis associated with the presentation includes Gastritis, GERD, PUD, musculoskeletal pain, constipation Admission/Observation Consideration of admission/observation: Escalation of care including admission/observation considered Lab Data MDM Lab Attestation statement: I reviewed the patient's lab results. Mild leukocytosis, no major metabolic direct 05/25/24 13:13 05/25/24 13:13 Labs: Lab Results 05/25/24 Range/Units 13:13 WBC 12.0 H (4.8-10.8) X10*3/uL RBC 4.55 (4.20-5.50) X10*6/uL Hgb 12.8 (12.0-16.0) g/dl Hct 40.3 (37.0-47.0) % MCV 88.6 (80.0-98.0) fL MCH 28.1 (27.0-33.0) pg MCHC 31.8 (31.0-35.0) g/dl RDW 12.7 (11.0-16.0) % Plt Count 324 (160-400) X10*3/uL MPV 8.6 L (9.4-12.3) fL Immature Gran % (Auto) 0.3 (0.0-0.4) % Neut % (Auto) 63.5 (45-73) % Lymph % (Auto) 27.2 (20-40) % [place] % (Auto) 6.4 (2-11) % Eos % (Auto) 2.0 (0-4) % Baso % (Auto) 0.6 (0-2) % Lymph # (Auto) 3.3 (1.2-4.9) X10*3/uL [place] # (Auto) 0.8 (0.1-1.2) X10*3/uL Eos # (Auto) 0.2 (0.0-0.4) X10*3/uL Baso # (Auto) 0.1 (0.0-0.2) X10*3/uL Abs Immat Gran (auto) 0.04 H (0.00-0.03) X10*3/uL Absolute Neuts (auto) 7.6 (2.0-8.3) x10*3/uL Absolute Nucleated RBC 0.000 (0.0-0.012) X10*3/uL Nucleated RBC % (auto) 0.0 (0.0-0.2) /100WBC PT 12.5 H (10.9-12.4) SEC INR 1.1 (0.9-1.1) Sodium 140 (135-145) mmol/L Potassium 4.3 (3.3-5.1) mmol/L Chloride 109 H (96-108) mmol/L Carbon Dioxide 26 (22-29) mmol/L Anion Gap 9 L (12-20) BUN 11 (9-16) mg/dL Creatinine 0.81 (0.5-1.4) mg/dL Estim Creat Clear Calc 73.4 Estimated GFR > 60 Random Glucose 95 (60-115) mg/dL Calcium 9.8 (8.4-10.2) mg/dL Total Bilirubin 0.3 (0.0-1.0) mg/dL AST 19 (5-31) U/L ALT 23 (0-31) U/L Alkaline Phosphatase 111 (39-117) U/L Total Protein 7.7 (6.5-8.0) g/dL Albumin 4.2 (3.5-5.0) g/dL Lipase 19 (8-78) U/L Urine Color Yellow Urine Appearance Clear Urine pH 5.0 (5.0-9.0) Ur Specific [place] 1.025 (1.005-1.025) Urine Protein Negative (Neg-Trace) mg/dL Urine Glucose (UA) Negative (Negative) mg/dL Urine Ketones Negative (Negative) mg/dL Urine Blood Negative (Negative) Urine Nitrite Negative (Negative) Ur Leukocyte Esterase Small (1+) H (Negative) Urine RBC 0-2 (0-2) /HPF Urine WBC 11-20 H (0-5) /HPF Ur Squamous Epith Cells 6-10 (0-2) /HPF Urine Bacteria None Seen (None Seen) Hyaline Casts 0-2 (0-2) /LPF External Record Review External record reviewed: Prior outpatient labs and Prior outpatient radiology Tests considered The following testing was considered but not selected: CT scan of abdomen pelvis was considered however her abdominal exam and workup is unremarkable Prescription Management I considered prescription management with: Pain Medication and Other (Antihypertensive, antiemetic) Chronic Conditions Patient?s care impacted by: Diabetes and Hypertension Discharge Plan Discharge Clinical Impression: Gastritis Qualifiers: Gastritis type: unspecified gastritis Chronicity: unspecified Gastritis bleeding: without bleeding Qualified Code(s): K29.70 - Gastritis, unspecified, without bleeding Patient Disposition: Home, Self-Care Instructions: Gastritis (DC), Diet for Stomach Ulcers and Gastritis (ED) Additional Instructions: Your lab workup today was unremarkable. Your pain is most likely due to gastritis which is and irritation and inflammation of your stomach lining. Start taking the prescribed medication as directed for this. Stick to a bland diet. Avoid foods high in acid, avoid alcohol and NSAID medications like Aleve, Motrin, Advil or ibuprofen. Follow up with your doctor as needed. Follow up with GI doctor if you symptoms persist despite dietary modifications and medication. If you develop new or worsening symptoms call 911 or come back to the ER for further evaluation. Prescriptions: New omeprazole 20 mg capsule,delayed release(DR/EC) 20 mg PO DAILY Qty: 14 0RF No Action pantoprazole 40 mg tablet,delayed release (DR/EC) 40 mg PO DAILY@0630 Qty: 90 3RF Linzess 145 mcg capsule 145 mcg PO DAILY Qty: 90 2RF losartan 100 mg tablet 100 mg PO DAILY Qty: 90 1RF phenazopyridine [Pyridium] 200 mg tablet 200 mg PO TID Qty: 9 0RF Rx Instructions: Take Pyridium with food doxycycline hyclate 100 mg capsule 100 mg PO BID 5 Days Qty: 10 0RF simvastatin 10 mg tablet 10 mg PO BEDTIME Qty: 90 3RF Referrals: [facility] [Provider Group] Isaac Field MD [Primary Care Provider] - Print Language: Lithuanian
[2024-05-25 13:23] LABS: Basophils Absolute Auto 0.1 X10*3/uL (0.0-0.2); Basophils Percent Auto 0.6 % (0-2); Eosinophils Absolute Auto 0.2 X10*3/uL (0.0-0.4); Hematocrit 40.3 % (37.0-47.0); Hemoglobin 12.8 g/dl (12.0-16.0); Imm Gran Abs Auto 0.04 X10*3/uL (0.00-0.03); Imm Gran Pct Auto 0.3 % (0.0-0.4); Lymphocytes Absolute Auto 3.3 X10*3/uL (1.2-4.9); Lymphocytes Percent Auto 27.2 % (20-40); MANUAL DIFF FLAG NO; Mean Corpuscular HGB Conc 31.8 g/dl (31.0-35.0); Mean Corpuscular Hemoglobin 28.1 pg (27.0-33.0); Mean Corpuscular Volume 88.6 fL (80.0-98.0); Mean Platelet Volume 8.6 fL (9.4-12.3); Monocytes Absolute Auto 0.8 X10*3/uL (0.1-1.2); Monocytes Percent Auto 6.4 % (2-11); Neutrophils Absolute Auto 7.6 x10*3/uL (2.0-8.3); Neutrophils Percent Auto 63.5 % (45-73); Platelet Count 324 X10*3/uL (160-400); Red Blood Count 4.55 X10*6/uL (4.20-5.50); Red Cell Distribution Width 12.7 % (11.0-16.0)
[2024-05-25 13:24] LABS: Appearance Urine Clear; Color Urine Yellow; Glucose Urine UA Negative (Negative); Leukocyte Esterase Urine Small (1+) (Negative); Nitrite Urine Negative (Negative); Specific Gravity - Urine 1.025 (1.005-1.025); UMIC TRIGGER UACC YES; Urine Blood Negative (Negative); Urine Ketones Negative (Negative); Urine Protein Negative (Neg-Trace)
[2024-05-25 13:26] LABS: Bacteria Urine None Seen (None Seen); Hyaline Casts Urine 0-2 /LPF (0-2); RBC Urine 0-2 /HPF (0-2); UACC Culture Trigger YES
[2024-05-25 13:31] LABS: INTERNATIONAL NORM RATIO 1.1 (0.9-1.1); Prothrombin Time 12.5 SEC (10.9-12.4)
[2024-05-25 13:38] LABS: Alanine Aminotransferase 23 U/L (0-31); Albumin Level 4.2 g/dL (3.5-5.0); Alkaline Phosphatase 111 U/L (39-117); Anion Gap 9 (12-20); Aspartate Amino Transferase 19 U/L (5-31); Bilirubin Total 0.3 mg/dL (0.0-1.0); Blood Urea Nitrogen 11 mg/dL (9-16); Calcium 9.8 mg/dL (8.4-10.2); Carbon Dioxide 26 mmol/L (22-29); Chloride 109 mmol/L (96-108); Creatinine Clr Calc Pharmacy 73.4; Estimated Glomerular Filt Rate > 60; Glucose Random 95 mg/dL (60-115); Lipase 19 U/L (8-78); Potassium 4.3 mmol/L (3.3-5.1); Sodium 140 mmol/L (135-145); Total Protein 7.7 g/dL (6.5-8.0)
[2024-05-25 17:52] VITALS: BP 184/103; PULSE 77; RESP 16; TEMP 36; O2SAT 96
[2024-05-25 18:38] VITALS: BP 184/103
[2024-05-25] MEDS: Losartan Potassium 50 MG TABLET 100 MG PO (18:38)
[2024-05-25] MEDS: PHENobarb/Hyoscy/Atropine/Scop 10 ML ELIXIR PO (18:38)
[2024-05-25] MEDS: Magnesium Hydrox/Alum Hydrox 30 ML ORAL.SUSP PO (18:39)
[2024-05-25] MEDS: Lidocaine HCl Viscous 2 % 15 ML SOLUTION MUCOUS MEM (18:39)
--- NOTE | 2024-05-25 18:41 | PC.NURSE ---
a&ox3, pt noted to be hypertensive, pt medicated for htn per order, pt also medicated for 5/10 abd pain, plan of care ongoing
[2024-05-25 19:43] VITALS: BP 149/97; PULSE 70; RESP 16; TEMP 36.1; O2SAT 97
[2024-05-25 21:01] VITALS: BP 168/112; PULSE 85; RESP 16; TEMP 36; O2SAT 95
[2024-05-25 21:03] VITALS: BP 168/112; PULSE 85; RESP 16; TEMP 36; O2SAT 95
== END 2024-05-25 21:04 | disposition home or self-care (01) ==
PROVIDERS: Registered Nurse Emergency; Emergency Provider Emergency Medicine; PCP Internal Medicine
DX: K29.70 Gastritis, unspecified, without bleeding (principal); R10.32 Left lower quadrant pain; E11.9 Type 2 diabetes mellitus without complications; I10 Essential (primary) hypertension; E78.00 Pure hypercholesterolemia, unspecified; K21.9 Gastro-esophageal reflux disease without esophagitis; Z79.02 Long term (current) use of antithrombotics/antiplatelets; Z79.899 Other long term (current) drug therapy
CPT/HCPCS: 36415; 80053; 81001; 83690; 85025; 85610; 87086; 99283; 99284

== ENCOUNTER 2024-05-28 11:27 | Outpatient (REF) | payer BC, SELFPAY ==
--- NOTE | ~2024-05-28 | CT_ITS ---
CLINICAL HISTORY: R10.9 - Unspecified abdominal pain CT abdomen and pelvis with contrast Comparison: CT/REG/[place]/SR - CT ABDOMEN PELVIS W IV CON - 06/22/22 10:42 EST Findings: The lung bases are clear. The gallbladder and solid organs are within normal limits. No renal stones. Prior hysterectomy. Nonvisualization of the appendix. No secondary findings to suggest appendicitis. Severe asymmetric thickening of the superolateral bladder wall on the left side. There is associated traction on the bladder wall and contact with adjacent sigmoid diverticula (series 4 images 32-44). There is also thickening of the adjacent peritoneal surface (series 3, image 70). There is infiltration of adjacent fat and borderline thickening of adjacent diverticula. There is no gas within the bladder lumen. There is no extraluminal gas within the mesentery. No bowel obstruction. No pneumatosis or portal venous gas. The bones are intact. IMPRESSION: Findings are likely on the basis of chronic diverticulitis of the sigmoid colon with involvement of a portion of the bladder wall and peritoneum. Possible early fistulous communication between the sigmoid colon and bladder. Given the degree of bladder wall thickening, neoplasm is not excluded. This document has been electronically signed by: Mayi Covarrubias MD on 05/29/2024 13:48:45
[2024-05-28] MEDS: Barium Sulfate Oral (Mocha) 450 ML ORAL.SUSP 900 ML PO (16:04)
[2024-05-28] MEDS: iohexoL 350 MG/ML 75 ML INFUS..BTL 85 ML IV (16:04)
== END 2024-05-28 11:28 | disposition home or self-care (01) ==
LOC: HO.CT 11:27
PROVIDERS: PCP Internal Medicine; Visit Provider Nurse Practitioner Family
DX: R10.9 Unspecified abdominal pain (principal); K57.90 Diverticulosis of intestine, part unspecified, without perforation or abscess without bleeding; Z87.19 Personal history of other diseases of the digestive system
CPT/HCPCS: 74177; Q9967

== ENCOUNTER → 2024-05-28 11:29 | Outpatient (BNV) | payer BC, SELFPAY | PROVIDERS: PCP Internal Medicine; Visit Provider Radiology Diagnostic Radiology | DX: R10.9 Unspecified abdominal pain (principal) | CPT/HCPCS: 74177 ==

== ENCOUNTER 2024-06-04 14:04 | Outpatient (AMB) | payer BC, SELFPAY ==
--- NOTE | 2024-06-04 14:05 | A.OFFVIS_ITS ---
Vital Signs 06/04/24 14:12 Weight 174 lb BP 179/96 H Blood Pressure Location Lt brachial Position Sitting Pulse 87 Intake Visit Reasons: Diverticulitis Intake Note: Patient referred by Mary Carmen Barahona [employer] for chronic diverticulitis. Patient c/o: feels abdomen palpitations. Denies nausea, diarrhea, constipation. Abd CT: 05-28-2024 Manager Content Required: No Accompanied by: Self / Same As Patient Allergies lisinopril Adverse Reaction (Intermediate, Verified 06/04/24 14:10) Cough HPI Comments Details: Patient presents status post recent CT scan of the abdomen pelvis because of lower abdominal pain and bladder symptoms. Patient has history of diverticular disease. Her CT scan demonstrated significant diverticular disease involving not only the sigmoid colon but the urinary bladder which would account for her symptoms. These are of pressure and frequency. She has not had any fecal urea or pneumaturia. As noted above, patient was longstanding history of diverticular disease. She had colonoscopy few months ago. She has persistent GI symptoms as well although no acute attacks over the last several weeks. Chart was reviewed and patient evaluated. Patient has been seen by me in the past. [facility] Medical History History of diverticulitis Dysuria Diverticulitis large intestine w/o perforation or abscess w/o bleeding Hypokalemia Anemia Impaired glucose tolerance Acute allergic reaction Fatty liver Irritable bowel syndrome Hypertension History of renal calculi Hypercholesterolemia GERD (gastroesophageal reflux disease) Obesity (BMI 30-39.9) Surgical History Hx of colonoscopy History of esophagogastroduodenoscopy (EGD) Hx of arthroscopy of left knee Hx of arthroscopy of right knee History of lithotripsy Hx of appendectomy H/O tubal ligation History of abdominal hysterectomy Family History Father Brain tumor Mother Hypertension CVD (cardiovascular disease) Social History Household Members: Spouse Housing: House Are you a primary managed care specialist to a significant other at home: No Do you presently have visiting nurse or other home services: No Alcohol intake: never Patient Tobacco Use Status: Never used Tobacco e-Cigarette/Vaping Use: Never Used Second Hand Smoke Exposure: No service: No Current occupational status: employed Current occupational exposures/hazards: No Cognitive needs: No Hearing needs: No Vision needs: Yes Physical Exam Vital Signs: Last Vital Signs Pulse 87 06/04/24 14:12 BP 179/96 H 06/04/24 14:12 Chest Other: Chest breath sounds bilaterally, HS 1 in 2 GI Other: Abdomen corpulent, soft, benign Assessment & Plan Assessment & Plan (1) History of diverticulitis: Code(s): Z87.19 - Personal history of other diseases of the digestive system Category: Surgical Plan Because of the very significant CT scan findings of her sigmoid colon literally invading into her bladder, I discussed with the patient that she should consider elective surgical resection to avert possible fistulization and a more urgent situation from her chronic diverticular disease. Risks, benefits, alternatives of elective sigmoid resection were reviewed with the patient and included but not limited to bleeding, infection, numbness, pain, scarring, temporary ileostomy, temporary colostomy depending on intraoperative findings and the patient wishes to proceed. All questions answered. Patient will receive a full bowel prep day prior including oral antibiotics. Coding Level of Care Code Est Pt Level 5 (73352) Diagnoses History of diverticulitis Z87.19
[2024-06-04 14:12] VITALS: BP 179/96; PULSE 87
== END 2024-06-04 14:27 | disposition home or self-care (01) ==
PROVIDERS: PCP Internal Medicine; Visit Provider Surgery
DX: K57.20 Diverticulitis of large intestine with perforation and abscess without bleeding (principal)
CPT/HCPCS: 99214

== ENCOUNTER → 2024-06-04 14:04 | Outpatient (BNVA) | payer BC, SELFPAY | PROVIDERS: PCP Internal Medicine; Visit Provider Surgery ==

== ENCOUNTER 2024-06-05 14:41 | Outpatient (AMB) | payer BC, SELFPAY ==
--- NOTE | 2024-06-05 14:50 | MHC.PC.OV ---
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 Last seen in January. Review of the notes has been follow-up with the surgeon since has been having diverticular problems and has a planned surgery coming up. No date yet as for the blood work just had it in May. But the complete blood work was done in July 2023. Patient had complains of having tongue pain and has been referred to ear nose and throat and has a scheduled appointment. [facility] Medical History History of diverticulitis Dysuria Diverticulitis large intestine w/o perforation or abscess w/o bleeding Hypokalemia Anemia Impaired glucose tolerance Acute allergic reaction Fatty liver Irritable bowel syndrome Hypertension History of renal calculi Hypercholesterolemia GERD (gastroesophageal reflux disease) Obesity (BMI 30-39.9) Surgical History History of diverticulitis Hx of colonoscopy History of esophagogastroduodenoscopy (EGD) Hx of arthroscopy of left knee Hx of arthroscopy of right knee History of lithotripsy Hx of appendectomy H/O tubal ligation History of abdominal hysterectomy Family History Father Brain tumor Mother Hypertension CVD (cardiovascular disease) Social History Household Members: Spouse Housing: House Are you a primary transitional care liaison to a significant other at home: No Do you presently have visiting nurse or other home services: No Alcohol intake: never Patient Tobacco Use Status: Never used Tobacco e-Cigarette/Vaping Use: Never Used Second Hand Smoke Exposure: No service: No Current occupational status: employed Current occupational exposures/hazards: No Cognitive needs: No Hearing needs: No Vision needs: Yes Questionnaire PHQ-9 Over the last 2 weeks, how often have you been bothered by any of the following problems? 1. Little interest or pleasure in doing things: not at all 2. Feeling down, depressed, or hopeless: not at all 3. Trouble falling or staying asleep, or sleeping too much: not at all 4. Feeling tired or having little energy: not at all 5. Poor appetite or overeating: not at all 6. Feeling bad about yourself - or that you are a failure or have let yourself or your family down: not at all 7. Trouble concentrating on things, such as reading the newspaper or watching television: not at all 8. Moving or speaking so slowly that other people could have noticed. Or the opposite - being so fidgety or restless that you have been moving around a lot more than usual: not at all 9. Thoughts that you would be better off or of hurting yourself in some way: not at all Total score: 0 Depression Screening Interpretation: Negative Depression Screening Done: Yes 00374 - PHQ-9 Billing: Yes Source: Developed by Drs. Alan Pang, Kay Garza, Jesús Berger and colleagues, with an educational tejas from [employer]. Thrive Questionnaire Date Thrive assessed: 06/05/24 I am a: Patient What is your living situation today?: I have a steady place to live Within the past 12 months, did the food you bought not last and you didn't have the money to get more?: Never true Within the past 12 months, did you worry whether your food would run out before you got money to buy more?: Never true Do you have trouble paying for medicines?: No Do you have trouble getting transportation to medical appointments?: No Do you have trouble paying your heating and electricity bill?: No Do you have trouble taking care of your child, family member or friend?: No Do you have trouble with day-to-day activities such as bathing, preparing meals, shopping, managing finances, etc.?: No Are you currently unemployed and looking for a job?: No Are you interested in more education?: No Please select the resources that you would like help with: None Currently or been in a relationship where the following occur: No concerns reported THRIVE Score: 0 AUDIT C Alcohol Use Questionnaire (AUDIT-C) 1. How often do you have a drink containing alcohol?: Never 3. How often do you have six or more drinks on one occasion?: Never Total Score: 0 Score Reviewed/Action Taken: No JENNIFER-7 AMB Questionnaire JENNIFER-7 Date JENNIFER - 7 assessed: 06/05/24 Feeling nervous, anxious, or on edge: 0 = Not at all Not being able to stop or control worryin = Not at all Worrying too much about different things: 0 = Not at all Trouble relaxin = Not at all Being so restless that it is hard to sit still: 0 = Not at all Becoming easily annoyed or irritable: 0 = Not at all Feeling afraid as if something awful might happen: 0 = Not at all Total JENNIFER-7 score (0-4 normal; 5-9 mild; 10-14 moderate; 15-21 severe): 0 Source: Developed by Drs. Alan Pang, Kay Garza, Jesús Berger and colleagues, with an educational tejas from [employer]. JENNIFER-7 Assessment Billing JENNIFER-7 Assessment Tool: JENNIFER-7 Assessment 43723 Physical exam (Primary Care) Vital Signs: Last Vital Signs Temp 96.8 F 06/05/24 14:58 Pulse 80 06/05/24 14:58 BP 150/88 H 06/05/24 14:58 Pulse Ox 95 06/05/24 14:58 Oxygen Delivery Method Room Air 06/05/24 14:58 BMI result Body Mass Index 31.5 Tobacco/Smoking Status: Tobacco use Status Tobacco use date assessed 06/05/24 06/05/24 15:02 Patient Tobacco Use Status Never used Tobacco 06/05/24 14:51 e-Cigarette/Vaping Use Never Used 06/05/24 14:51 PHQ-9: PHQ-9 Score PHQ-9: Total score 0 06/05/24 14:51 Depression Screening Interpretation: Negative Thrive Assessment: Date of Thrive Assessment Date Thrive assessed 06/05/24 06/05/24 14:51 Currently or been in a relationship where the following occur: No concerns reported Const General: alert; No acute distress Eyes Conjunctivae: conjunctivae normal Resp Auscultation: clear to auscultation bilaterally Cardio Rate: regular rate Rhythm: regular rhythm GI Inspection: Yes normal to inspection Extrem General: Yes normal to inspection and No edema Coding Level of Care Code Est Pt Level 4 (59958) Complex EM visit Add On G2211 Diagnoses Hypercholesterolemia E78.00 Gastroesophageal reflux disease without esophagitis K21.9 Esophagitis presence: without esophagitis Primary hypertension I10 Hypertension type: primary hypertension Diverticular disease K57.90 Type 2 diabetes mellitus with hyperglycemia E11.65 Thyroid enlargement E04.9 Additional Codes JENNIFER-7 Assessment Billing - JENNIFER-7 Assessment Tool: JENNIFER-7 Assessment 14600 ([id number]) PHQ-9 - 28226 - PHQ-9 Billing: Yes ([id number]) Assessment & Plan Assessment & Plan (1) Hypercholesterolemia: Code(s): E78.00 - Pure hypercholesterolemia, unspecified Category: Medical Plan: Avoid fried foods, chicken skin, eggs, butter margarine, pastries and meat. Be it pork or beef they have a lot of cholesterol LDL goal of less than 100. Patient is on simvastatin 10 mg once a day. Advised patient to increase simvastatin and retest cholesterol in 3 months. (2) GERD (gastroesophageal reflux disease): Code(s): K21.9 - Gastro-esophageal reflux disease without esophagitis Category: Medical Qualifiers: Esophagitis presence: without esophagitis Qualified Code(s): K21.9 - Gastro-esophageal reflux disease without esophagitis Plan: Avoid the foods that causes that usually spicy foods, tomato products, juices, coffee, soda and foods that your sensitive to. After eating do not lie down, allow 3-4 hours before in lie down. And keep the head of bed above 30 degrees to avoid the acid from going up. On pantoprazole 40 mg once a day (3) Hypertension: Code(s): I10 - Essential (primary) hypertension Category: Medical Qualifiers: Hypertension type: primary hypertension Qualified Code(s): I10 - Essential (primary) hypertension Plan: Continue with blood pressure medication. Decrease salt intake and exercise takes losartan 100 mg once a day (4) Diverticular disease: Code(s): K57.90 - Diverticulosis of intestine, part unspecified, without perforation or abscess without bleeding Category: Medical Plan: planned surgery (5) Type 2 diabetes mellitus with hyperglycemia: Comment: [place] [facility] Code(s): E11.65 - Type 2 diabetes mellitus with hyperglycemia Category: Medical Plan: Decrease the amount of carbohydrate intake, pasta, bread, rice and potatoes are all sugar and that is aside from all the sweet stuff, remember that fruits are good but they are Sweet also. Diet controlled last hemoglobin A1c last year was controlled (6) Thyroid enlargement: Code(s): E04.9 - Nontoxic goiter, unspecified Category: Medical Plan: Will do an ultrasound of the thyroid Orders: Orders Lipid Panel 3 Months E78.00 - Pure hypercholesterolemia, unspecified Complete Blood Count Auto Diff 3 Months E78.00 - Pure hypercholesterolemia, unspecified Thyroid Stimulating Hormone 3 Months E78.00 - Pure hypercholesterolemia, unspecified Vitamin D 25-OH Total 3 Months E78.00 - Pure hypercholesterolemia, unspecified Creatinine Urine 3 Months E11.65 - Type 2 diabetes mellitus with hyperglycemia, E78.00 - Pure hypercholesterolemia, unspecified US thyroid Today E04.9 - Nontoxic goiter, unspecified Comprehensive Met. Panel 3 Months E78.00 - Pure hypercholesterolemia, unspecified Hemoglobin A1c 3 Months E78.00 - Pure hypercholesterolemia, unspecified Free T4 (Free Thyroxine) 3 Months E78.00 - Pure hypercholesterolemia, unspecified Vitamin B12 and Folate 3 Months E78.00 - Pure hypercholesterolemia, unspecified Microalbumin, Random (w Creat) 3 Months E11.65 - Type 2 diabetes mellitus with hyperglycemia, E78.00 - Pure hypercholesterolemia, unspecified Medications: Changed From simvastatin 10 mg PO BEDTIME 90 tabs 3RF To simvastatin 20 mg PO BEDTIME 90 tabs 3RF
[2024-06-05 14:58] VITALS: BP 150/88; PULSE 80; TEMP 36; O2SAT 95; BMI 31.5
[2024-06-05 15:10] VITALS: BP 136/80
== END 2024-06-05 15:22 | disposition home or self-care (01) ==
PROVIDERS: PCP Internal Medicine; Visit Provider Internal Medicine
DX: E78.00 Pure hypercholesterolemia, unspecified (principal); K21.9 Gastro-esophageal reflux disease without esophagitis; I10 Essential (primary) hypertension; K57.90 Diverticulosis of intestine, part unspecified, without perforation or abscess without bleeding; E11.65 Type 2 diabetes mellitus with hyperglycemia; E04.9 Nontoxic goiter, unspecified

== ENCOUNTER → 2024-06-05 14:41 | Outpatient (BNVA) | payer BC, SELFPAY | PROVIDERS: PCP Internal Medicine; Visit Provider Internal Medicine | DX: E78.00 Pure hypercholesterolemia, unspecified (principal); K21.9 Gastro-esophageal reflux disease without esophagitis; I10 Essential (primary) hypertension; K57.90 Diverticulosis of intestine, part unspecified, without perforation or abscess without bleeding; E11.65 Type 2 diabetes mellitus with hyperglycemia; E04.9 Nontoxic goiter, unspecified; Z79.899 Other long term (current) drug therapy | CPT/HCPCS: 96127 ==

== ENCOUNTER 2024-06-07 15:34 | Outpatient (AMB) | payer BC, SELFPAY ==
--- NOTE | 2024-06-07 13:58 | MHC.OFFVIS ---
Intake Visit Reasons: Hydrodistention- follow up Intake Note: Patient is present for HYDRODISTENTION F/U Urology Medication:NONE Antibiotic Allergy:NONE Blood Thinner:NONE Manufacturing Controller Required: No Allergies lisinopril Adverse Reaction (Intermediate, Verified 06/07/24 15:36) Cough Medication List - Last Reconciled 06/07/24 by Hector Hays MD linaclotide (Linzess) 145 mcg PO DAILY losartan 100 mg PO DAILY omeprazole 20 mg PO DAILY pantoprazole 40 mg PO DAILY@0630 simvastatin 20 mg PO BEDTIME HPI Comments Details: 06/07/24---s/p cysto hydro 05/15/24--- bladder capacity 500 mL, Discussed findings c/w with subaverage capacity expected under anesthesia. Pt states her urinary symptoms have improved. She states she had other w/u and has diverticular inflammation and it is pressing on the bladder. No evidence of fistula. Surgery is scheduled for Jun. Will fu in july after the procedure. CT abd/pelvis 05/28/24-- reviewed in report result section. 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 Denies urinary incontinence. Has some postvoid dribbling. After urinate I think I am done but then there is more that comes out. History of kidney stones had previous ESWL. Review of chart - 02/28/24-- renal US--2mm Right Kidney. UA--today 1+ blood I have discussed reasons for blood in the urine may include but are not limited to kidney stones, cancer in the urinary tract, BPH, or inflammatory conditions of the urinary tract. I have discussed workup to include cystoscopy hydrodistion. [facility] Medical History Dysuria Diverticulitis large intestine w/o perforation or abscess w/o bleeding Hypokalemia Anemia Impaired glucose tolerance Acute allergic reaction Fatty liver Irritable bowel syndrome Hypertension History of renal calculi Hypercholesterolemia GERD (gastroesophageal reflux disease) Obesity (BMI 30-39.9) Surgical History History of diverticulitis Hx of colonoscopy History of esophagogastroduodenoscopy (EGD) Hx of arthroscopy of left knee Hx of arthroscopy of right knee History of lithotripsy Hx of appendectomy H/O tubal ligation History of abdominal hysterectomy Family History Father Brain tumor Mother Hypertension CVD (cardiovascular disease) Social History Household Members: Spouse Housing: House Are you a primary senior care specialist to a significant other at home: No Do you presently have visiting nurse or other home services: No Alcohol intake: never Patient Tobacco Use Status: Never used Tobacco e-Cigarette/Vaping Use: Never Used Second Hand Smoke Exposure: No service: No Current occupational status: employed Current occupational exposures/hazards: No Cognitive needs: No Hearing needs: No Vision needs: Yes Review of Systems Const All systems reviewed & are unremarkable except as noted in HPI and below Reports no additional complaints Eyes Reports no additional complaints ENT Reports no additional complaints Card Reports no additional complaints Resp Reports no additional complaints GI Reports no additional complaints Reports as per HPI Musc Reports no additional complaints Skin/Breast Reports system reviewed and no additional complaints, except as documented Neuro Reports no additional complaints Psych Reports no additional complaints Endo Reports no additional complaints Chriss/Lymph Reports no additional complaints Aller/Immun Reports no additional complaints Results AMB Urinalysis, Automated UA Leukoctes 70 Sonia/uL Last Edit by FRAN Horn on 06/07/24 15:42 UA Nitrite Negative Last Edit by FRAN Horn on 06/07/24 15:42 UA Urobilinogen 0.2 mg/dL Last Edit by FRAN Horn on 06/07/24 15:42 UA Protein 30 mg/dL Last Edit by FRAN Horn on 06/07/24 15:42 UA pH 6.0 Last Edit by FRAN Horn on 06/07/24 15:42 UA Blood 80 Lucian/uL Last Edit by FRAN Horn on 06/07/24 15:42 UA Specific [place] 1.030 Last Edit by FRAN Horn on 06/07/24 15:42 UA Ketone Negative Last Edit by FRAN Horn on 06/07/24 15:42 UA Bilirubin 0 mg/dL Last Edit by FRAN Horn on 06/07/24 15:42 UA Glucose 0 mg/dL Last Edit by FRAN Horn on 06/07/24 15:42 Results Reviewed Results Reviewed: Laboratory Last Values Urine pH (Auto) 6.0 06/07/24 15:42 Specific [place] (Auto) 1.030 06/07/24 15:42 Urine Protein (Auto) 30 mg/dL 06/07/24 15:42 Glucose (UA)(Auto) 0 mg/dL 06/07/24 15:42 Urine Ketones (Auto) Negative 06/07/24 15:42 Urine Blood (Auto) 80 Lucian/uL 06/07/24 15:42 Urine Nitrite (Auto) Negative 06/07/24 15:42 Urine Bilirubin (Auto) 0 mg/dL 06/07/24 15:42 Urine Urobilinogen (Auto) 0.2 mg/dL 06/07/24 15:42 Leukocyte Esterase (Auto) 70 Sonia/uL 06/07/24 15:42 Date of Service: 05/28/24 CT abdomen and pelvis with contrast Comparison: CT/REG/IL/SR - CT ABDOMEN PELVIS W IV CON - 06/22/22 10:42 EST Findings: The lung bases are clear. The gallbladder and solid organs are within normal limits. No renal stones. Prior hysterectomy. Nonvisualization of the appendix. No secondary findings to suggest appendicitis. Severe asymmetric thickening of the superolateral bladder wall on the left side. There is associated traction on the bladder wall and contact with adjacent sigmoid diverticula (series 4 images 32-44). There is also thickening of the adjacent peritoneal surface (series 3, image 70). There is infiltration of adjacent fat and borderline thickening of adjacent diverticula. There is no gas within the bladder lumen. There is no extraluminal gas within the mesentery. No bowel obstruction. No pneumatosis or portal venous gas. The bones are intact. IMPRESSION: Findings are likely on the basis of chronic diverticulitis of the sigmoid colon with involvement of a portion of the bladder wall and peritoneum. Possible early fistulous communication between the sigmoid colon and bladder. Given the degree of bladder wall thickening, neoplasm is not excluded. Assessment & Plan Assessment & Plan (1) Sensation of pressure in bladder area: Code(s): R39.89 - Other symptoms and signs involving the genitourinary system Category: Medical (2) Microscopic hematuria: Code(s): R31.29 - Other microscopic hematuria Category: Medical (3) Kidney stone: Code(s): N20.0 - Calculus of kidney Category: Medical (4) Bladder pain: Code(s): R39.89 - Other symptoms and signs involving the genitourinary system Category: Medical (5) Diverticular disease: Code(s): K57.90 - Diverticulosis of intestine, part unspecified, without perforation or abscess without bleeding Category: Medical Plan: planned surgery Plan FU in July after Jun surgery to check UA and urinary symptoms Orders: Orders AMB Urinalysis Automated Today Z13.9 - Encounter for screening, unspecified Patient Instructions: The patient had an opportunity to ask questions regarding treatment plan. The patient expressed understanding and agreement with the above treatment plan. The patient is aware they should contact our office by phone for worsening of their current condition or the appearance of new symptoms. Compliance is encouraged with any medications and followup testing that is ordered. It is a privilege to be allowed the opportunity to participate in the urologic care of your patient. If you have any questions or concerns regarding treatment for the above conditions please do not hesitate to contact me. The office telephone contact is [phone]. This note is constructed in part using voice recognition software. While every effort has been made to ensure accuracy revenue collector errors may have been included. Yours sincerely, Hector Hays MD Coding Level of Care Code Est Pt Level 4 (25649) Diagnoses Sensation of pressure in bladder area R39.89 Microscopic hematuria R31.29 Kidney stone N20.0 Bladder pain R39.89 Diverticular disease K57.90
== END 2024-06-07 16:00 | disposition home or self-care (01) ==
PROVIDERS: PCP Internal Medicine; Visit Provider Urology
DX: R39.89 Other symptoms and signs involving the genitourinary system (principal); R31.29 Other microscopic hematuria; N20.0 Calculus of kidney; K57.90 Diverticulosis of intestine, part unspecified, without perforation or abscess without bleeding; Z13.9 Encounter for screening, unspecified
CPT/HCPCS: 99214

== ENCOUNTER → 2024-06-07 15:34 | Outpatient (BNVA) | payer BC, SELFPAY | PROVIDERS: PCP Internal Medicine; Visit Provider Urology | DX: R39.89 Other symptoms and signs involving the genitourinary system (principal); R31.29 Other microscopic hematuria; N20.0 Calculus of kidney; K57.90 Diverticulosis of intestine, part unspecified, without perforation or abscess without bleeding | CPT/HCPCS: 81003 ==

== ENCOUNTER 2024-06-19 15:00 | Outpatient (REF) | payer BC, SELFPAY ==
--- NOTE | ~2024-06-19 | US_ITS ---
EXAMINATION: US THYROID CLINICAL INFORMATION: Nontoxic goiter COMPARISON: None available. TECHNIQUE: Linear transducer grayscale and color Doppler examination with attention to the region of the thyroid. FINDINGS: SIZE: Measurements of the thyroid lobes and nodules are given in sagittal, anteroposterior and transverse dimensions respectively. Right Thyroid Lobe: 5.2 x 1.5 x 1.6 cm, volume 6.5 mL. Parenchyma: The gland echotexture is heterogeneous. Thyroid vascularity is normal. Left Thyroid Lobe: 4.8 x 1.2 x 1.3 cm, volume 3.9 mL. Parenchyma: The gland echotexture is heterogeneous. Thyroid vascularity is normal. Isthmus: 0.5 cm in maximum AP dimension. Estimated total number of nodules greater than or equal to 1 cm: None. Fiber Design Engineer nodules are described as follows: 1. Location: Left upper pole. Size: 0.7 x 0.6 x 0.8 cm, volume 0.2 mL. Nodule characteristics: Composition: Solid (2). Echogenicity: Isoechoic (1). Shape: Wider Margins: Ill-defined (0). Echogenic Foci: None (0). ACR TI-RADS total points: 3 ACR TI-RADS category: 3 NODES: No lymphadenopathy is seen in the tissue surrounding the thyroid gland. US/US thyroid IMPRESSION: Heterogenous thyroid gland with of small subcentimeter nodule left upper lobe. Right lobe slightly larger than left. ACR TI-RADS RECOMMENDATION REFERENCE: Ultrasound-guided fine-needle aspiration, followup ultrasound, no further follow up. * TR1 (0 point) and TR2 (2 points): No FNA or follow up. * TR3 (3 points): FNA if more than or equal to 2.5 cm in maximum dimension, followup ultrasound in 1, 3 and 5 years if 1.5 to 2.4 cm in maximum dimension. * TR4 (4-6 points): FNA if more than or equal to 1.5 cm in maximum dimension, followup ultrasound in 1, 2, 3 and 5 years if 1 to 1.4 cm in maximum dimension. * TR5 (more than or equal to 7 points): FNA if more than or equal to 1 cm in maximum dimension, followup ultrasound every year for 5 years if 0.5 to 0.9 cm in maximum dimension. * TR3, TR4 or TR5 nodules that are below the size threshold for followup receive no follow up. Electronically signed by: Chandler Campo MD 06/22/2024 01:39 PM EST
== END 2024-06-19 15:01 | disposition home or self-care (01) ==
LOC: HO.US 15:00
PROVIDERS: PCP Internal Medicine; Visit Provider Internal Medicine
DX: E04.9 Nontoxic goiter, unspecified (principal)
CPT/HCPCS: 76536

== ENCOUNTER → 2024-06-19 15:01 | Outpatient (BNV) | payer BC, SELFPAY | PROVIDERS: PCP Internal Medicine; Visit Provider Radiology Diagnostic Radiology | DX: E04.9 Nontoxic goiter, unspecified (principal) | CPT/HCPCS: 76536 ==

== ENCOUNTER 2024-06-20 13:18 | Outpatient (AMB) | payer BC, SELFPAY ==
[2024-06-20 13:26] VITALS: BP 146/94; PULSE 76; O2SAT 97; BMI 31.5
--- NOTE | 2024-06-20 13:26 | MHC.OFFVIS ---
Vital Signs 06/20/24 13:26 Height 5 ft 2 in Weight 172 lb 6.424 oz BMI 31.5 BP 146/94 H Blood Pressure Location Rt brachial Position Sitting Pulse 76 Pulse Source Pulse Oximeter Pulse Oximetry (%) 97 Oxygen Delivery Method Room Air Intake Visit Reasons: 6 week follow up Intake Note: ESTABLISHED PATIENT for Constipation mgmt. Imaging done. Chief Complaint; Pt reports LLQ pain still consistent. No additional GI concerns reported at this time. Last Pattern Grader Required: No Accompanied by: Self / Same As Patient Allergies lisinopril Adverse Reaction (Intermediate, Verified 06/20/24 13:27) Cough HPI HPI 6 week follow up: Details: LAST VISIT: History of diverticulitis Diverticular disease Constipation Epigastric abdominal pain GERD (gastroesophageal reflux disease) Plan Continue pantoprazole daily. Avoid dietary triggers and late night snacking. Patient has tenderness in the left lower quadrant no fever, no chose. History of diverticulitis, twice this year and wants last year. Patient will be sent for urgent CT scan. Patient was urged to watch her symptoms and if she becomes with fevers, diarrhea, mucus or blood in her stools to go to ER immediately. I will see patient in 6 weeks. Patient will call our office if she will have any GI concerning symptoms. Patient is agreeable to current plan of care and verbalizes understanding of instructions. She was given the opportunity to ask questions and all questions answered. ? Thank you for allowing me to participate in her care Orders Orders CT abdomen pelvis w IV con 05/11/24 K57.90, R10.9, Z87.19 TODAY'S VISIT Patient is here today for follow-up. CT scan results discussed with patient. Looks like patient might have a chronic diverticulitis and is scheduled for surgery with Dr. Spangler in couple weeks. Patient continues to have a left lower quadrant pain. Patient feels like fullness. Patient reports that pain is there worse when her bladder fills up. Patient denies any urinary burning. Denies any melena, hematochezia, mucus in her stool. Denies any fever or chills. Patient denies any nausea or vomiting. Reports that she is moving her bowels daily. [facility] Medical History Dysuria Diverticulitis large intestine w/o perforation or abscess w/o bleeding Hypokalemia Anemia Impaired glucose tolerance Acute allergic reaction Fatty liver Irritable bowel syndrome Hypertension History of renal calculi Hypercholesterolemia GERD (gastroesophageal reflux disease) Obesity (BMI 30-39.9) Surgical History History of diverticulitis Hx of colonoscopy History of esophagogastroduodenoscopy (EGD) Hx of arthroscopy of left knee Hx of arthroscopy of right knee History of lithotripsy Hx of appendectomy H/O tubal ligation History of abdominal hysterectomy Family History Father Brain tumor Mother Hypertension CVD (cardiovascular disease) Social History Household Members: Spouse Housing: House Are you a primary out of school hours care worker to a significant other at home: No Do you presently have visiting nurse or other home services: No Alcohol intake: never Patient Tobacco Use Status: Never used Tobacco e-Cigarette/Vaping Use: Never Used Second Hand Smoke Exposure: No service: No Current occupational status: employed Current occupational exposures/hazards: No Cognitive needs: No Hearing needs: No Vision needs: Yes Review of Systems Const Denies weight gain and Denies weight loss ENT Reports no additional complaints, Denies dysphagia and Denies odynophagia Card Reports no additional complaints Resp Reports no additional complaints GI Reports abdominal pain (LLQ), Denies belching, Denies melena, Reports bloating, Denies change in bowel habits, Denies dysphagia, Denies excessive flatus, Denies dyspepsia, Denies heartburn, Denies diarrhea, Denies loose stools, Denies nausea, Denies odynophagia and Denies vomiting Reports no additional complaints Musc Reports no additional complaints Neuro Reports no additional complaints Psych Reports no additional complaints Endo Reports no additional complaints Physical Exam Vital Signs: Last Vital Signs Pulse 76 06/20/24 13:26 BP 146/94 H 06/20/24 13:26 Pulse Ox 97 06/20/24 13:26 Oxygen Delivery Method Room Air 06/20/24 13:26 BMI result Body Mass Index 31.5 Const General: healthy appearing and no acute distress Nutritional Appearance: obese Orientation/consciousness: patient oriented x3 Resp Effort & Inspection: normal respiratory effort, able to speak in complete sentences, no tracheal deviation and symmetric chest movement Auscultation: clear to auscultation bilaterally Cardio Rate: regular rate GI Inspection: Yes normal to inspection, No distended and Yes obesity Palpation (GI): Soft to palpation, not firm, nontender and No hepatosplenomegaly present Auscultation: normal bowel sounds General: Yes no CVA tenderness Back/Spine/Pelvis Back: no CVA tenderness Skin General skin exam: elasticity normal, turgor normal and dry skin Neuro General: patient oriented x3 Psych Appearance: grossly normal Mental Status: mental status grossly normal Results Reviewed Results Reviewed: CT SCAN OF ABDOMEN AND PELVIS IMPRESSION: Findings are likely on the basis of chronic diverticulitis of the sigmoid colon with involvement of a portion of the bladder wall and peritoneum. Possible early fistulous communication between the sigmoid colon and bladder. Given the degree of bladder wall thickening, neoplasm is not excluded. Assessment & Plan Assessment & Plan (1) History of diverticulitis: Code(s): Z87.19 - Personal history of other diseases of the digestive system Category: Surgical (2) Diverticular disease: Code(s): K57.90 - Diverticulosis of intestine, part unspecified, without perforation or abscess without bleeding Category: Medical (3) Constipation: Code(s): K59.00 - Constipation, unspecified Category: Medical Qualifiers: Constipation type: slow transit constipation Qualified Code(s): K59.01 - Slow transit constipation (4) Epigastric abdominal pain: Code(s): R10.13 - Epigastric pain Category: Medical (5) GERD (gastroesophageal reflux disease): Code(s): K21.9 - Gastro-esophageal reflux disease without esophagitis Category: Medical Qualifiers: Esophagitis presence: without esophagitis Qualified Code(s): K21.9 - Gastro-esophageal reflux disease without esophagitis Plan Suspected chronic diverticulitis. Patient can start taking dicyclomine to help with pain. Antibiotics will be ordered and she will return to the office next week on Tuesday. Patient was encouraged to go to the ER if she will have fever, chills increase tenderness in the left lower quadrant, inability to have a bowel movement. Surgery scheduled for July 05. Patient is agreeable to current plan of care and verbalizes understanding of instructions. She was given the opportunity to ask questions and all questions answered. Thank you for allowing me to participate in her care Medications: New dicyclomine 10 mg PO BID PRN 90 caps 2RF abdominal discomfort K58.9 - Irritable bowel syndrome, unspecified amoxicillin-pot clavulanate 875-125 mg 1 tab PO BID 10 days 20 tabs 0RF metronidazole 500 mg PO TID 10 days 30 tabs 0RF ondansetron 4 mg PO Q8H PRN 20 tabs 0RF nausea and vomiting R11.0 - Nausea Coding Level of Care Code Est Pt Level 4 (17935) Complex EM visit Add On G2211 Diagnoses History of diverticulitis Z87.19 Diverticular disease K57.90 Slow transit constipation K59.01 Constipation type: slow transit constipation Epigastric abdominal pain R10.13 Gastroesophageal reflux disease without esophagitis K21.9 Esophagitis presence: without esophagitis Time Spent (min) 40 Comment 25 minutes spent with patient and additional 15 minutes spent reviewing her records
== END 2024-06-20 14:10 | disposition home or self-care (01) ==
PROVIDERS: PCP Internal Medicine; Visit Provider Nurse Practitioner Family
DX: Z87.19 Personal history of other diseases of the digestive system (principal); K57.90 Diverticulosis of intestine, part unspecified, without perforation or abscess without bleeding; K59.01 Slow transit constipation; R10.13 Epigastric pain; K21.9 Gastro-esophageal reflux disease without esophagitis
CPT/HCPCS: 99214

== ENCOUNTER → 2024-06-20 13:18 | Outpatient (BNVA) | payer BC, SELFPAY | PROVIDERS: PCP Internal Medicine; Visit Provider Nurse Practitioner Family ==

== ENCOUNTER 2024-06-29 14:59 | Outpatient (AMB) | payer BC, SELFPAY ==
--- NOTE | 2024-06-29 15:01 | MHC.OFFVIS ---
Vital Signs 06/29/24 15:09 Height 5 ft 2 in Weight 172 lb 6.424 oz BMI 31.5 BP 140/84 H Blood Pressure Location Rt brachial Position Sitting Pulse 114 H Pulse Source Pulse Oximeter Pulse Oximetry (%) 97 Oxygen Delivery Method Room Air Intake Visit Reasons: 1 wk okay to book per david Intake Note: ESTABLISHED PATIENT for Constipation mgmt. Attended Gen Surg appt. Upcoming procedure for colo r/s Chief Complaint; No GI concerns or changes at this time. Pt reports same presentation as previous appt. Pharmacy verified? [facility] Measurer Required: No Accompanied by: Self / Same As Patient Allergies lisinopril Adverse Reaction (Intermediate, Verified 06/29/24 15:02) Cough HPI HPI 1 wk okay to book per david: Details: LAST VISIT: History of diverticulitis Diverticular disease Constipation Epigastric abdominal pain GERD (gastroesophageal reflux disease) Plan Suspected chronic diverticulitis. Patient can start taking dicyclomine to help with pain. Antibiotics will be ordered and she will return to the office next week on Tuesday. Patient was encouraged to go to the ER if she will have fever, chills increase tenderness in the left lower quadrant, inability to have a bowel movement. Surgery scheduled for July 05. Patient is agreeable to current plan of care and verbalizes understanding of instructions. She was given the opportunity to ask questions and all questions answered. ? Thank you for allowing me to participate in her care Medications New dicyclomine 10 mg PO BID PRN 90 caps 2RF abdominal discomfort K58.9 amoxicillin-pot clavulanate 875-125 mg 1 tab PO BID 10 days 20 tabs 0RF metronidazole 500 mg PO TID 10 days 30 tabs 0RF ondansetron 4 mg PO Q8H PRN 20 tabs 0RF nausea and vomiting R11.0 TODAY'S VISIT Patient is here today for follow-up. Patient started taking antibiotics and metronidazole last visit. She still has couple days left to finish them. Significant improvement in her pain in the left lower quadrant. Patient will have colon resection on 13th of this month. Patient denies melena, hematochezia. Denies any mucus in her stools. Reports currently that she is going to the bathroom without any issues. Currently she is taking Linzess, however patient will need to stop that after procedure and do MiraLax with stool softeners. Patient denies any fever or chills. Denies any dyspepsia, dysphagia or odynophagia. Currently is taking pantoprazole daily and reports working well for her. [facility] Medical History Habitual snoring Dysuria Diverticulitis large intestine w/o perforation or abscess w/o bleeding Hypokalemia Anemia Impaired glucose tolerance Acute allergic reaction Fatty liver Irritable bowel syndrome Hypertension History of renal calculi Hypercholesterolemia GERD (gastroesophageal reflux disease) Obesity (BMI 30-39.9) Surgical History Hx of section History of diverticulitis Hx of colonoscopy History of esophagogastroduodenoscopy (EGD) Hx of arthroscopy of left knee Hx of arthroscopy of right knee History of lithotripsy Hx of appendectomy H/O tubal ligation History of abdominal hysterectomy Family History Father Brain tumor Mother Hypertension CVD (cardiovascular disease) Social History Household Members: Spouse Housing: House Are you a primary doggy daycare activities director to a significant other at home: No Do you presently have visiting nurse or other home services: No Alcohol intake: never Patient Tobacco Use Status: Never used Tobacco e-Cigarette/Vaping Use: Never Used Second Hand Smoke Exposure: No service: No Current occupational status: employed Current occupational exposures/hazards: No Cognitive needs: No Hearing needs: No Vision needs: Yes Review of Systems Const Denies weight gain and Denies weight loss ENT Reports no additional complaints, Denies dysphagia and Denies odynophagia Card Reports no additional complaints Resp Reports no additional complaints GI Reports abdominal pain (LLQ, improved), Denies belching, Denies melena, Reports bloating, Denies change in bowel habits, Denies dysphagia, Denies excessive flatus, Denies dyspepsia, Denies heartburn, Denies diarrhea, Denies loose stools, Denies nausea, Denies odynophagia and Denies vomiting Reports no additional complaints Musc Reports no additional complaints Neuro Reports no additional complaints Psych Reports no additional complaints Endo Reports no additional complaints Physical Exam Vital Signs: Last Vital Signs Pulse 114 H 06/29/24 15:09 BP 140/84 H 06/29/24 15:09 Pulse Ox 97 06/29/24 15:09 Oxygen Delivery Method Room Air 06/29/24 15:09 BMI result Body Mass Index 31.5 Const General: healthy appearing and no acute distress Nutritional Appearance: obese Orientation/consciousness: patient oriented x3 Resp Effort & Inspection: normal respiratory effort, able to speak in complete sentences, no tracheal deviation and symmetric chest movement Auscultation: clear to auscultation bilaterally Cardio Rate: regular rate GI Inspection: Yes normal to inspection, No distended and Yes obesity Palpation (GI): Soft to palpation, not firm, nontender and No hepatosplenomegaly present Auscultation: normal bowel sounds General: Yes no CVA tenderness Back/Spine/Pelvis Back: no CVA tenderness Skin General skin exam: elasticity normal, turgor normal and dry skin Neuro General: patient oriented x3 Psych Appearance: grossly normal Mental Status: mental status grossly normal Assessment & Plan Assessment & Plan (1) History of diverticulitis: Code(s): Z87.19 - Personal history of other diseases of the digestive system Category: Surgical (2) Diverticular disease: Code(s): K57.90 - Diverticulosis of intestine, part unspecified, without perforation or abscess without bleeding Category: Medical (3) Constipation: Code(s): K59.00 - Constipation, unspecified Category: Medical Qualifiers: Constipation type: slow transit constipation Qualified Code(s): K59.01 - Slow transit constipation (4) Epigastric abdominal pain: Code(s): R10.13 - Epigastric pain Category: Medical (5) GERD (gastroesophageal reflux disease): Code(s): K21.9 - Gastro-esophageal reflux disease without esophagitis Category: Medical Qualifiers: Esophagitis presence: without esophagitis Qualified Code(s): K21.9 - Gastro-esophageal reflux disease without esophagitis Plan Patient will finish all of her antibiotics. So far she reports that she is tolerating them well. Patient still is working. Plans to work until the day before procedure. Procedure scheduled for next . Bowel regimen after surgery with MiraLax and Colace. Continue pantoprazole daily. Avoid dietary triggers and late night snacking. Patient will see me in 4-5 weeks. She is agreeable to this plan and verbalizes understanding of instructions. She was given the opportunity to ask questions and all questions answered. Thank you for allowing me to participate in her care Coding Level of Care Code Est Pt Level 4 (18414) Complex EM visit Add On G2211 Diagnoses History of diverticulitis Z87.19 Diverticular disease K57.90 Slow transit constipation K59.01 Constipation type: slow transit constipation Epigastric abdominal pain R10.13 Gastroesophageal reflux disease without esophagitis K21.9 Esophagitis presence: without esophagitis Time Spent (min) 35 Comment 25 minutes spent with patient and additional 10 minutes spent reviewing her records
[2024-06-29 15:09] VITALS: BP 140/84; PULSE 114; O2SAT 97; BMI 31.5
== END 2024-06-29 15:36 | disposition home or self-care (01) ==
PROVIDERS: PCP Internal Medicine; Visit Provider Nurse Practitioner Family
DX: Z87.19 Personal history of other diseases of the digestive system (principal); K57.90 Diverticulosis of intestine, part unspecified, without perforation or abscess without bleeding; K59.01 Slow transit constipation; R10.13 Epigastric pain; K21.9 Gastro-esophageal reflux disease without esophagitis
CPT/HCPCS: 99214

== ENCOUNTER 2024-08-02 08:10 | Outpatient (AMB) | payer BC, SELFPAY ==
[2024-08-02 08:17] VITALS: BP 132/78; PULSE 94; O2SAT 95; BMI 31.6
--- NOTE | 2024-08-02 08:17 | A.OFFVIS_ITS ---
Vital Signs 08/02/24 08:17 Height 5 ft 2 in Weight 172 lb 13.478 oz BMI 31.6 BP 132/78 Blood Pressure Location Rt brachial Position Sitting Pulse 94 Pulse Source Pulse Oximeter Pulse Oximetry (%) 95 Oxygen Delivery Method Room Air Intake Visit Reasons: s/p Intake Note: ESTABLISHED PATIENT for Constipation mgmt. Pt has procedure w/ gen surg within the next 2 weeks. Chief Complaint; Pt reports GI sx are well controlled currently. Stereo Plotter Operator Required: No Accompanied by: Self / Same As Patient Allergies lisinopril Adverse Reaction (Intermediate, Verified 08/02/24 08:17) Cough HPI HPI s/p: Details: LAST VISIT: History of diverticulitis Diverticular disease Constipation Epigastric abdominal pain GERD (gastroesophageal reflux disease) Plan Patient will finish all of her antibiotics. So far she reports that she is tolerating them well. Patient still is working. Plans to work until the day before procedure. Procedure scheduled for next . Bowel regimen after surgery with MiraLax and Colace. Continue pantoprazole daily. Avoid dietary triggers and late night snacking. Patient will see me in 4-5 weeks. She is agreeable to this plan and verbalizes understanding of instructions. She was given the opportunity to ask questions and all questions answered. ? TODAY'S VISIT patient is here today for follow-up. Patient was supposed to have colon resection, however patient did not do her prep and surgery had to be canceled. Patient reports that she is doing well. Reports that she is taking Linzess as needed in the moving her bowels daily. Patient no longer has left lower quadrant pain. Denies melena, hematochezia. Denies any mucus in her stools. Patient reports to have good appetite. Denies any GI concerning symptoms today [facility] Medical History (Reviewed 08/02/24 @ 08:20 by Calvin Rivera [facility]) Habitual snoring Dysuria Diverticulitis large intestine w/o perforation or abscess w/o bleeding Hypokalemia Anemia Impaired glucose tolerance Acute allergic reaction Fatty liver Irritable bowel syndrome Hypertension History of renal calculi Hypercholesterolemia GERD (gastroesophageal reflux disease) Obesity (BMI 30-39.9) Surgical History Hx of section History of diverticulitis Hx of colonoscopy History of esophagogastroduodenoscopy (EGD) Hx of arthroscopy of left knee Hx of arthroscopy of right knee History of lithotripsy Hx of appendectomy H/O tubal ligation History of abdominal hysterectomy Family History Father Brain tumor Mother Hypertension CVD (cardiovascular disease) Social History Household Members: Spouse Housing: House Are you a primary health care consultant to a significant other at home: No Do you presently have visiting nurse or other home services: No Alcohol intake: never Patient Tobacco Use Status: Never used Tobacco e-Cigarette/Vaping Use: Never Used Second Hand Smoke Exposure: No service: No Current occupational status: employed Current occupational exposures/hazards: No Cognitive needs: No Hearing needs: No Vision needs: Yes Review of Systems Const Denies weight gain and Denies weight loss ENT Reports no additional complaints, Denies dysphagia and Denies odynophagia Card Reports no additional complaints Resp Reports no additional complaints GI Reports abdominal pain (LLQ, improved), Denies belching, Denies melena, Reports bloating, Denies change in bowel habits, Denies dysphagia, Denies excessive flatus, Denies dyspepsia, Denies heartburn, Denies diarrhea, Denies loose stools, Denies nausea, Denies odynophagia and Denies vomiting Reports no additional complaints Musc Reports no additional complaints Neuro Reports no additional complaints Psych Reports no additional complaints Endo Reports no additional complaints Physical Exam Vital Signs: Last Vital Signs Pulse 94 08/02/24 08:17 BP 132/78 08/02/24 08:17 Pulse Ox 95 08/02/24 08:17 Oxygen Delivery Method Room Air 08/02/24 08:17 BMI result Body Mass Index 31.6 Const General: healthy appearing and no acute distress Nutritional Appearance: obese Orientation/consciousness: patient oriented x3 Resp Effort & Inspection: normal respiratory effort, able to speak in complete sentences, no tracheal deviation and symmetric chest movement Auscultation: clear to auscultation bilaterally Cardio Rate: regular rate GI Inspection: Yes normal to inspection, No distended and Yes obesity Palpation (GI): Soft to palpation, not firm, nontender and No hepatosplenomegaly present Auscultation: normal bowel sounds General: Yes no CVA tenderness Back/Spine/Pelvis Back: no CVA tenderness Skin General skin exam: elasticity normal, turgor normal and dry skin Neuro General: patient oriented x3 Psych Appearance: grossly normal Mental Status: mental status grossly normal Assessment & Plan Assessment & Plan (1) History of diverticulitis: Code(s): Z87.19 - Personal history of other diseases of the digestive system Category: Surgical (2) Diverticular disease: Code(s): K57.90 - Diverticulosis of intestine, part unspecified, without perforation or abscess without bleeding Category: Medical (3) Constipation: Code(s): K59.00 - Constipation, unspecified Category: Medical Qualifiers: Constipation type: slow transit constipation Qualified Code(s): K59.01 - Slow transit constipation (4) Epigastric abdominal pain: Code(s): R10.13 - Epigastric pain Category: Medical (5) GERD (gastroesophageal reflux disease): Code(s): K21.9 - Gastro-esophageal reflux disease without esophagitis Category: Medical Qualifiers: Esophagitis presence: without esophagitis Qualified Code(s): K21.9 - Gastro-esophageal reflux disease without esophagitis Plan Continue Linzess. May take Colace in the evening. Reminded patient about the importance of good bowel prep before going for surgery. Her surgery was rescheduled for August 16. Patient has follow-up with the surgeon early August. Patient will follow-up with us in 3 months. patient is agreeable to this plan and verbalizes understanding of instructions. She was given the opportunity to ask questions and all questions answered. Thank you for allowing me to participate in her care Medications: New docusate sodium 200 mg (2 x 100 mg) PO BEDTIME 180 caps 3RF K59.00 - Constipation, unspecified Coding Level of Care Code Est Pt Level 3 (12633) Diagnoses History of diverticulitis Z87.19 Diverticular disease K57.90 Slow transit constipation K59.01 Constipation type: slow transit constipation Epigastric abdominal pain R10.13 Gastroesophageal reflux disease without esophagitis K21.9 Esophagitis presence: without esophagitis Time Spent (min) 25 Comment 15 minutes spent with patient and additional 10 minutes spent reviewing her records
== END 2024-08-02 08:42 | disposition home or self-care (01) ==
LOC: HO.HGI 08:10
PROVIDERS: PCP Internal Medicine; Visit Provider Nurse Practitioner Family
DX: Z87.19 Personal history of other diseases of the digestive system (principal); K57.90 Diverticulosis of intestine, part unspecified, without perforation or abscess without bleeding; K59.01 Slow transit constipation; R10.13 Epigastric pain; K21.9 Gastro-esophageal reflux disease without esophagitis
CPT/HCPCS: 99213

== ENCOUNTER → 2024-08-02 08:10 | Outpatient (BNVA) | payer BC, SELFPAY | PROVIDERS: PCP Internal Medicine; Visit Provider Nurse Practitioner Family ==

== ENCOUNTER 2024-08-16 07:33 | Inpatient (IN) | payer BC, SELFPAY ==
[2024-08-14 07:03] VITALS: BMI 31.5
--- NOTE | 2024-08-15 08:10 | MHC.SHP ---
Pre-Procedural Eval Section A - 24 Hr Update-Section A only Date of Service: 08/16/24 The patient is an INPATIENT: Yes Changes since office visit: No Cold of Flu in the past 2 weeks, No New Medical Problems, No Changes in Medication and No Patient answered all questions Section B - Complete if H&P > 30 days Chief Complaint: Personal history of other diseases of digestive Allergies: Allergies Allergy/AdvReac Type Severity Reaction Status Date / Time lisinopril AdvReac Intermediate Cough Verified 08/02/24 08:17 Review of Systems Sugical H&P ROS: Negative: Constitution, Cardiovascular, Respiratory, Neurological, Psychiatric, Hem-Onc, Allergic/Immunologic, Gastrointestinal, Genitourinary, Musculoskeletal, Integumentary, Endocrine and Eyes/Ears/Nose/Throat Exam Surgical H&P Exam: Normal: HEENT, Normal: Heart, Normal: Lungs, Normal: Extremities, Normal: Abdomen, Normal: Skin and Normal: Neurological Plan I have reviewed the history and physical and performed a pertinent physical examination on my patient. No changes have occurred unless specified. Time Spent With Patient Time: Total time managing care of this patient today ____ minutes.
[2024-08-16] VITALS (12 sets, daily range): BP systolic 108–168; BP diastolic 74–94; PULSE 75–114; RESP 14–20; TEMP 35.7–36.7; O2SAT 93–97; BMI 30.7; BMI 32.5
[2024-08-16] MEDS: Lactated Ringers 1,000 ML 100 ML IVCONT ×3 (06:30→23:17)
--- NOTE | 2024-08-16 08:17 | HO.ANESPROP2 ---
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 A1C ~6 PMFSH Active Problems Active Problems: All Active Problems Sensation of pressure in bladder area (Acute) Thyroid enlargement (Acute) Bladder pain (Acute) Kidney stone (Acute) Microscopic hematuria (Acute) Urinary frequency (Acute) Degenerative arthritis of knee, bilateral (Acute) Vaginal lesion (Acute) Vaginal bleeding (Acute) Type 2 diabetes mellitus with hyperglycemia (Acute) Hyperparathyroidism (Acute) Hypercalcemia (Acute) UTI (urinary tract infection) (Acute) Painful tongue (Acute) Annual physical exam (Acute) Diverticular disease (Acute) Shoulder pain, right (Acute) Constipation (Acute) Gastric erosions (Acute) Epigastric abdominal pain (Acute) Hair loss (Acute) COVID-19 (Acute) Plantar fasciitis of right foot (Acute) Vitamin D deficiency (Acute) History of diverticulitis (Acute) Dysuria (Acute) Hypertension (Acute) Acute allergic reaction (Acute) History of renal calculi (Acute) Hypercholesterolemia (Acute) GERD (gastroesophageal reflux disease) (Acute) Past Medical History Medical History Habitual snoring Dysuria Diverticulitis large intestine w/o perforation or abscess w/o bleeding Hypokalemia Anemia Impaired glucose tolerance Acute allergic reaction Fatty liver Irritable bowel syndrome Hypertension History of renal calculi Hypercholesterolemia GERD (gastroesophageal reflux disease) Obesity (BMI 30-39.9) Family History Family History Father Brain tumor Mother Hypertension CVD (cardiovascular disease) Family history of problems with anesthesia: No Surgical History Surgical History Hx of section History of diverticulitis Hx of colonoscopy History of esophagogastroduodenoscopy (EGD) Hx of arthroscopy of left knee Hx of arthroscopy of right knee History of lithotripsy Hx of appendectomy H/O tubal ligation History of abdominal hysterectomy History of Problems with Anesthesia: No Social History Social History Household Members: Spouse Housing: House Are you a primary coronary care unit nurse to a significant other at home: No Do you presently have visiting nurse or other home services: No Alcohol intake: never Patient Tobacco Use Status: Never used Tobacco e-Cigarette/Vaping Use: Never Used Second Hand Smoke Exposure: No Have you been hit, kicked, punched, or otherwise hurt by someone within the past year? If so, by whom?: No Are you DNR?: No Advance Directives: No Advance Directives Information Provided: No Advance Directives on File: No Recently lost weight without trying: No Nutrition Risks: No Nutritional Risk service: No Current occupational status: employed Current occupational exposures/hazards: No Cognitive needs: No Hearing needs: No Vision needs: Yes Meds Allergies Allergy/AdvReac Type Severity Reaction Status Date / Time lisinopril AdvReac Intermediate Cough Verified 08/16/24 06:41 Home Medications ?Medication ?Instructions ?Recorded ?Confirmed ?Last Taken ?Type losartan 100 mg tablet 100 mg PO BEDTIME 06/26/24 08/16/24 08/15/24 History omeprazole 20 mg PO DAILY 07/05/24 08/16/24 08/16/24 History Exam Height,Weight and Vital Signs: Height 5 ft 2 in Weight 78.018 kg Pertinent Lab Results Pertinent Lab Results: Laboratory Tests 05/25/24 13:13 WBC 12.0 H Hgb 12.8 Hct 40.3 Plt Count 324 Sodium 140 Potassium 4.3 Chloride 109 H Carbon Dioxide 26 BUN 11 Creatinine 0.81 Narrative Narrative: EKG 06/2024 Vent. Rate : 78 BPM Atrial Rate : 78 BPM P-R Int : 140 ms QRS Dur : 72 ms QT Int : 368 ms P-R-T Axes : 23 -2 4 degrees QTcB Int : 419 ms Normal sinus rhythm Normal ECG When compared with ECG of 09-Jun-2020 15:22, No significant change was found Assessment and Plan Assessment Anesthesia Assessment: Chart Reviewed Final Anesthetic Review Family History of Problems with Anesthesia: No History of Problems with Anesthesia: No Documented by User: Emi Bar DO 08/16/24 08:17 [facility] Past Medical History Medical History Habitual snoring Dysuria Diverticulitis large intestine w/o perforation or abscess w/o bleeding Hypokalemia Anemia Impaired glucose tolerance Acute allergic reaction Fatty liver Irritable bowel syndrome Hypertension History of renal calculi Hypercholesterolemia GERD (gastroesophageal reflux disease) Obesity (BMI 30-39.9) Family History Family History Father Brain tumor Mother Hypertension CVD (cardiovascular disease) Family history of problems with anesthesia: No Surgical History Surgical History Hx of section History of diverticulitis Hx of colonoscopy History of esophagogastroduodenoscopy (EGD) Hx of arthroscopy of left knee Hx of arthroscopy of right knee History of lithotripsy Hx of appendectomy H/O tubal ligation History of abdominal hysterectomy History of Problems with Anesthesia: No Social History Social History Household Members: Spouse Housing: House Are you a primary coronary care unit nurse to a significant other at home: No Do you presently have visiting nurse or other home services: No Alcohol intake: never Patient Tobacco Use Status: Never used Tobacco e-Cigarette/Vaping Use: Never Used Second Hand Smoke Exposure: No Have you been hit, kicked, punched, or otherwise hurt by someone within the past year? If so, by whom?: No Are you DNR?: No Advance Directives: No Advance Directives Information Provided: No Advance Directives on File: No Recently lost weight without trying: No Nutrition Risks: No Nutritional Risk service: No Current occupational status: employed Current occupational exposures/hazards: No Cognitive needs: No Hearing needs: No Vision needs: Yes Meds Allergies Allergy/AdvReac Type Severity Reaction Status Date / Time lisinopril AdvReac Intermediate Cough Verified 08/16/24 06:41 Home Medications ?Medication ?Instructions ?Recorded ?Confirmed ?Last Taken ?Type losartan 100 mg tablet 100 mg PO BEDTIME 06/26/24 08/16/24 08/15/24 History omeprazole 20 mg PO DAILY 07/05/24 08/16/24 08/16/24 History Exam Exam Date and Time: 08/16/24 0725 Height,Weight and Vital Signs: Height 5 ft 2 in Weight 78.018 kg Vital Signs Temperature 97.9 F 08/16/24 06:39 Pulse Rate 81 08/16/24 06:39 Respiratory Rate 18 08/16/24 06:39 Blood Pressure 143/87 H 08/16/24 06:39 Pulse Oximetry 96 08/16/24 06:39 Oxygen Delivery Method Room Air 08/16/24 06:39 Temperature 97.9 F 08/16/24 06:39 Pulse Rate 81 08/16/24 06:39 Respiratory Rate 18 08/16/24 06:39 Blood Pressure 143/87 H 08/16/24 06:39 Pulse Oximetry 96 08/16/24 06:39 Oxygen Delivery Method Room Air 08/16/24 06:39 Airway Mallampati Class: II TM Dist: >3cm Neck ROM: Full Loose/Missing/Broken Teeth: No (patient denies any loose or broken teeth) Heart: S1S2 Lungs: CTAB Assessment and Plan Assessment Anesthesia Assessment: Anesthesia Plan Discussed and Chart Reviewed Final Anesthetic Review Family History of Problems with Anesthesia: No History of Problems with Anesthesia: No NPO: Yes ASA Class: II Final Preanesthetic Review: No Changes in Pt Med Stat, Meds/Allgs Chart Reviewed, Consent Obtained/Reviewed and Anes Risks/Benef Reviewed Patient Risk: Low Procedure Risk: Intermediate Anesthetic Plan Anesthetic Plan: GA, Regional Block (bilateral transversus abdominis plane block) and Agree w/ Assess. and Plan Disposition: Standard PACU
--- NOTE | 2024-08-16 11:38 | W.PM.OPN ---
Operative Note Operative Note Date of Service: 08/16/24 Narrative: Preoperative diagnosis: [] Chronic recurrent sigmoid diverticulitis Postop diagnosis: [] The same Procedure [] exploratory laparotomy, enterolysis, sigmoid resection, takedown splenic flexure, transanal colorectal anastomosis, proctosigmoidoscopy Surgeon: [] Aníbal Local Combination Truck Driver: [] Jean Ash Type of Anesthesia: [] General Indication for surgery: [] Significant diverticular disease with thickening and marked inflammatory scarring involving the sigmoid colon to the pelvis and left adnexa. Very Appreciable pelvic scarring and cicatrization from patient's prior 3 sections and hysterectomy. Corpulent abdomen. Tap block per anesthesia Findings: Patient was had significant pelvic adhesions and scarring secondary to her multiple pelvic surgeries in the past. Patient had a segment of sigmoid colon which was markedly indurated and thickened adherent to the pelvic sidewall, left adnexa, and pelvic brim. Once this was freed up, disease sigmoid colon was transected. Because of a EEA stapler malfunction, anastomosis had to be redone. Incident report made with stapler and product sent back to manufacture via rep. Procedure; patient was brought to the operating room, placed on operative table supine position, after an adequate level of general anesthesia was induced, the patient was placed in lithotomy position, Jones catheter placed under sterile technique, and the abdomen and peritoneum were prepped and draped in usual sterile fashion using an infraumbilical incision from the previous lower midline scar in the patient's prior surgery, this carried down through skin, subcu tissue, and linea alba. Posterior fascia and peritoneum were opened and extended along the length of the incision. Some adhesions of omentum and small bowel were taken down to allow access to the left colon and pelvis. These were packed in the upper abdomen. Packs and retractors were placed to enhance exposure. Lateral peritoneal reflection was taken down and using a combination of blunt, sharp, and Bovie dissection, the sigmoid colon was from the lateral pelvic wall, left adnexa, and bladder. No direct communication with the bladder was demonstrated. Dissection into the distal rectosigmoid demonstrated marked scarring of the rectosigmoid area secondary to the patient's multiple prior pelvic surgeries. The proximal colon was transected at the sigmoid /left colon junction using ИВАН stapler. Next the mesentery to the sigmoid colon was sequentially taken down using double firing of ligature device. At the distal sigmoid colon junction with the rectum, contour stapler was used to transect the bowel at This location. Next the proximal colon which was markedly narrow in general was dilated and the EEA 25 anvil placed in this and secured with a pursestring device. Trans anal placement of the EEA stapler was then performed, connected to the anvil and stapler uneventfully fired. Stapler was uneventfully removed in the usual fashion but was unable to be withdrawn. In fact, the anvil had disconnected from the stapler and was stuck in the anastomotic area of the colon. The stapler was removed and the anvil was able to be retrieved and removed there were 2 complete donuts obtained in the anvil however the rectum distal to the anastomosis wasdisrupted secondary to this stapler malfunction.. Because of concern of the anastomotic integrity as well as the rectal transmural defect, the anastomosis was taken down and it was decided to perform a new anastomosis below the area of the original anastomosis. The distal rectal stump was circumferentially dissected out using combination of Bovie, ligature and staplers to obtain clean rectal stump below the above-mentioned original area. The proximal colon was further mobilized by taken down the lateral peritoneal reflection in the splenic flexure. Once adequately mobilized, the proximal colon entered the pelvis without any tension. Using a hand-sewn pursestring suture of 2-0 Prolene, 25 [place] anvil was secured into the proximal colon. Next trans anal placement of the EEA stapler was performed and uneventful trans anal colorectal anastomosis was undertaken with the appropriate orientation of the proximal colon. Two complete donuts were obtained. The anastomosis was observed to be intact with proctosigmoidoscopy. Pelvis was filled with saline and air insufflated through the anastomosis with minimal air leak demonstrated along the right side. This was buttressed using seromuscular 3-0 silk sutures. Because of the extensive pelvic dissection, it was decided to perform a loop ileostomy to protect the anastomosis. The Distal ileum was identified and brought out through a right lower quadrant muscle-splitting Ostomy incision and secured with a ad. Abdominal cavity was copiously irrigated and secured hemostasis. Mass closed using 1. Looped PDS was used to close the fascia. Skin was closed using interrupted inverted dermal 3-0 Vicryl sutures followed by Steri-Strips and sterile dressings. Wound was infiltrated 0.5% Marcaine at completion. Sponge, needle, and instrument counts reported correct. Patient tolerated the procedure well and emerged from anesthesia stable condition. EBL minimal
[2024-08-16] MEDS: 0.9 % Sodium Chloride Flush 3 ML SYRINGE IVFLUSH (13:15)
[2024-08-16] MEDS: Acetaminophen 1,000 MG/100 ML PIGGYBACK 400 MG IV ×2 (16:42→22:15)
--- NOTE | 2024-08-16 18:55 | PHA.MEDREC ---
Addendum entered by Tonio Causey [facility] 08/16/24 19:11: med rec checked by [facility] Original Note: Pharmacy Consult ? Medication Reconciliation Pharmacy has reviewed the medication reconciliation done by nursing. Spoke to patient to confirm med list. Patient states she takes Linzess 145 mg as needed, last fill date was 11/09/23 for 90 days. Patient confirmed she takes Omeprazole 20 mg not Pantoprazole 40 mg.
[2024-08-16] MEDS: ondansetron HCL 4 MG/2 ML VIAL IVPUSH (18:56)
[2024-08-16] MEDS: Atorvastatin Calcium 10 MG TABLET PO (21:55)
[2024-08-16] MEDS: HYDROmorphone HCl 0.5 MG/0.5 ML SYRINGE IVPUSH (23:51)
[2024-08-17] VITALS (10 sets, daily range): BP systolic 130–175; BP diastolic 70–87; PULSE 87–106; RESP 16–20; TEMP 36.1–36.9; O2SAT 92–95
[2024-08-17] MEDS: Acetaminophen 1,000 MG/100 ML PIGGYBACK 400 MG IV ×4 (04:43→22:48)
[2024-08-17] MEDS: Omeprazole 20 MG CAPSULE.DR PO (06:04)
--- NOTE | 2024-08-17 07:00 | PM.PNGS ---
Subjective Subjective Date of Service: 08/17/24 <Hawa Delfino - Last Filed: 08/17/24 07:11> 08/17/24 <Cristiana Pena PA-C - Last Filed: 08/17/24 10:04> 08/17/24 <Oneil Spangler MD - Last Filed: 08/17/24 11:12> Interval history: Christel reports feeling weak and has abdominal pain she stated that was mainly in her right and left upper quadrants. She states vomiting once yesterday after trying to eat, and once this morning after some medication was administered. Patient has not felt strong enough to ambulate. <Hawa Delfino - Last Filed: 08/17/24 07:11> Physical Exam Vital Signs: Vital Signs: Last Vital Signs Temp 98.2 F 08/17/24 03:16 Pulse 106 H 08/17/24 03:16 Resp 18 08/17/24 03:16 BP 160/82 H 08/17/24 03:16 Pulse Ox 95 08/17/24 03:16 O2 Del Method Nasal Cannula 08/17/24 03:16 O2 Flow Rate 1 08/17/24 03:16 BMI result Body Mass Index 32.5 <Hawa Delfino - Last Filed: 08/17/24 07:11> Const: General: awake and tired appearing <Hawa Delfino - Last Filed: 08/17/24 07:11> Orientation/consciousness: patient oriented x3 <Hawa Delfino - Last Filed: 08/17/24 07:11> Resp: Effort & Inspection: normal respiratory effort and able to speak in complete sentences <Hawa Delfino - Last Filed: 08/17/24 07:11> Auscultation: clear to auscultation bilaterally <Hawa Delfino - Last Filed: 08/17/24 07:11> Cardio: Rate: regular rate <Hawa Delfino - Last Filed: 08/17/24 07:11> Rhythm: regular rhythm <Hawa Delfino - Last Filed: 08/17/24 07:11> Peripheral pulses: radial pulses present <Hawa Delfino - Last Filed: 08/17/24 07:11> GI: Other: Mild distension Incision has bandage placed, no fluid leaking through. Stoma: red with brown/green fluid in the bag. <Hawa Saleh - Last Filed: 08/17/24 07:11> Other: Mild distension dressing clean and intact Stoma: red with brown/green fluid in the bag. <Cristiana Pena PA-C - Last Filed: 08/17/24 10:04> Palpation (GI): Soft to palpation and Tenderness to palpation present (GI) (mild incisional) <Cristiana Pena PA-C - Last Filed: 08/17/24 10:04> : Other: Catheter in place, clear liquid. <Hawa Saleh - Last Filed: 08/17/24 07:11> Skin: General skin exam: no rashes or lesions noted <Cristiana Pena PA-C - Last Filed: 08/17/24 10:04> Neuro: General: patient oriented x3 <Hawa Finch Last Filed: 08/17/24 07:11> Objective Data Active Medications Atorvastatin Calcium (Atorvastatin Calcium 10 Mg Tablet) 10 mg PO BEDTIME [facility] Last Admin: 08/16/24 21:55 Dose: 10 mg Documented By: BRENT Calcium Carbonate (Calcium Carbonate 750 Mg Tab.Chew) 750 mg PO Q4H PRN PRN Reason: Heartburn Hydromorphone HCl (Hydromorphone Hcl 0.5 Mg/0.5 Ml Syringe) 0.5 mg IVPUSH Q4H PRN; Protocol PRN Reason: Pain, Severe (Pain Scale 7-10) Last Admin: 08/16/24 23:51 Dose: 0.5 mg Documented By: BRENT Lactated Ringer's (Lr) 1,000 mls @ 100 mls/hr IVCONT .Q10H [facility] Last Admin: 08/17/24 02:26 Dose: Not Given Documented By: BRENT Non-Admin Reason: IV Running Acetaminophen (Ofirmev) 1,000 mg in 100 mls @ 400 mls/hr IV Q6H [facility] Last Infusion: 08/17/24 05:01 Dose: Infused Documented By: PAULETTE Magnesium Hydroxide (Milk Of Magnesia 30 Ml Oral.Susp) 30 ml PO DAILY PRN PRN Reason: Constipation Melatonin (Melatonin 3 Mg Tablet) 6 mg PO BEDTIME PRN PRN Reason: Insomnia Omeprazole (Omeprazole 20 Mg Capsule.Dr) 20 mg PO DAILY@0630 [facility] Last Admin: 08/17/24 06:04 Dose: 20 mg Documented By: PAULETTE Ondansetron HCl (Ondansetron Hcl 4 Mg/2 Ml Vial) 4 mg IVPUSH Q8H PRN PRN Reason: Nausea and Vomiting Last Admin: 08/16/24 18:56 Dose: 4 mg Documented By: TATE Oxycodone HCl (Oxycodone Hcl Immed Release 5 Mg Tablet) 5 mg PO Q4H PRN PRN Reason: Pain, Moderate(Pain Scale 4-6) Sodium Chloride (0.9 % Sodium Chloride Flush 3 Ml Syringe) 3 ml IVFLUSH QSHIFT [facility] Last Admin: 08/16/24 23:18 Dose: Not Given Documented By: BRENT Non-Admin Reason: IV Running <Hawa Delfino - Last Filed: 08/17/24 07:11> Labs CBC & Chem 7: 08/17/24 06:49 08/17/24 06:49 <Hawa Delfino - Last Filed: 08/17/24 07:11> Labs: Laboratory Results - last 24 hr 08/16/24 06:29 Blood Type O Positive Antibody Screen NEGATIVE <Hawa Delfnio - Last Filed: 08/17/24 07:11> Procedures Date of Service Date of Service: 08/17/24 <Hawa Delfino - Last Filed: 08/17/24 07:11> 08/17/24 <Cristiana Pena PA-C - Last Filed: 08/17/24 10:04> 08/17/24 <Oneil Spangler MD - Last Filed: 08/17/24 11:12> Progress Note: A&P Assessment and plan (1) S/P colon resection: Status: Acute <Hawa Delfino - Last Filed: 08/17/24 07:11> Assessment and Plan: Christel is post op day 1 from an exploratory laparotomy, sigmoid resection, transanal colorectal anastomosis, and proctosigmoidoscopy. She rated her pain as constant, an 8/10 within the upper quadrants of the abdomen. Her stoma was red with brown, green stool within the ostomy bag. If she can ambulate to the bathroom, catheter can be removed. IV acetaminophen will be continued for pain management, as well as odansetron for nausea as needed, not much of an appetite. She will be educated on her ostomy, and was encouraged to use the spirometry 10 times per hour. Clear liquids today and continue to advance her diet. <Hawa Finch Last Filed: 08/17/24 07:11> Christel is post op day 1 from an exploratory laparotomy, sigmoid resection, transanal colorectal anastomosis, and proctosigmoidoscopy. She rated her pain as constant, an 8/10 within the upper quadrants of the abdomen. Her stoma was red with brown, green stool within the ostomy bag. If she can ambulate to the bathroom, catheter can be removed. IV acetaminophen will be continued for pain management, as well as odansetron for nausea as needed, not much of an appetite. She will be educated on her ostomy, and was encouraged to use the spirometry 10 times per hour. Clear liquids today and continue to advance her diet. POD #1 s/p exploratory laparotomy, sigmoid resection, transanal colorectal anastomosis, proctosigmoidoscopy, diverting loop ileostomy. Patient reports difficulty with pain however has not been asking for any additional analgesics. VSS. Abd exam benign with appropriate post op tenderness, ileostomy viable appearing with bilious output, dressing clean and intact. Encouraged asking for analgesics for pain control so she is able to get OOB and ambulate today. Cont clear liquids. Dc lim. Cont IVF for now. broach operator consult for ostomy education. <Cristiana Pena PA-C - Last Filed: 08/17/24 10:04> Time Spent With Patient Time: Total time managing care of this patient today ____ minutes. <Hawa Saleh - Last Filed: 08/17/24 07:11> Quality Stroke Does the patient have a stroke diagnosis?: No <Cristiana Pena PA-C - Last Filed: 08/17/24 10:04> VTE Prior VTE?: No <Cristiana Pena PA-C - Last Filed: 08/17/24 10:04> VTE Risk Level:: Surgical - low [facility] Last Filed: 08/17/24 07:11> VTE Device Contraindication: N/A - Device Ordered <Hawa Delfino - Last Filed: 08/17/24 07:11> VTE Drug Contraindication: Treatment Not Indicated <Hawa Delfino - Last Filed: 08/17/24 07:11>
[2024-08-17 07:14] LABS: Anion Gap 12 (12-20); Blood Urea Nitrogen 10 mg/dL (9-16); Calcium 9.7 mg/dL (8.4-10.2); Carbon Dioxide 25 mmol/L (22-29); Chloride 106 mmol/L (96-108); Creatinine Clr Calc Pharmacy 83.8; Estimated Glomerular Filt Rate > 60; Glucose Fasting 137 mg/dL (60-99); Potassium 4.5 mmol/L (3.3-5.1); Sodium 138 mmol/L (135-145)
[2024-08-17 07:20] LABS: Basophils Percent Auto 0.1 % (0-2); Hemoglobin 11.1 g/dl (12.0-16.0); Imm Gran Abs Auto 0.16 X10*3/uL (0.00-0.03); Imm Gran Pct Auto 0.7 % (0.0-0.4); Lymphocytes Absolute Auto 1.5 X10*3/uL (1.2-4.9); Lymphocytes Percent Auto 6.4 % (20-40); MANUAL DIFF FLAG SCAN; Mean Corpuscular HGB Conc 32.6 g/dl (31.0-35.0); Mean Corpuscular Hemoglobin 28.3 pg (27.0-33.0); Mean Corpuscular Volume 86.7 fL (80.0-98.0); Monocytes Absolute Auto 1.7 X10*3/uL (0.1-1.2); Monocytes Percent Auto 7.3 % (2-11); Neutrophils Absolute Auto 19.6 x10*3/uL (2.0-8.3); Neutrophils Percent Auto 85.5 % (45-73); Platelet Count 358 X10*3/uL (160-400); Red Blood Count 3.92 X10*6/uL (4.20-5.50); Red Cell Distribution Width 13.2 % (11.0-16.0); SCAN SMEAR FLAG 1
[2024-08-17] MEDS: HYDROmorphone HCl 0.5 MG/0.5 ML SYRINGE IVPUSH ×4 (07:37→20:32)
[2024-08-17 08:22] LABS: SLIDE REVIEW VERIFIED
--- NOTE | 2024-08-17 09:00 | HO.POSTANES ---
Post Anesthesia Evaluation Post Anesthesia Evaluation Date of Service: 08/17/24 Vital Signs: Vital Signs Temp Pulse Resp BP Pulse Ox O2 Del Method O2 Flow Rate 08/17/24 07:45 96.9 F 87 18 158/87 H 93 Room Air 08/17/24 07:37 18 08/17/24 03:16 98.2 F 106 H 18 160/82 H 95 Nasal Cannula 1 08/17/24 00:31 97.9 F 99 18 130/76 95 Nasal Cannula 1 08/16/24 23:51 18 08/16/24 23:48 98.1 F 114 H 18 168/90 H 95 Nasal Cannula 1 Anesthesia: Regional and General Endotracheal-GETA Mental Status: Awake Pain Control: Satisfactory Nausea/Vomiting: None Hydration: Adequate Anesthesia-Related Issues: No Anes. Related Issues
[2024-08-17] MEDS: Lactated Ringers 1,000 ML 100 ML IVCONT ×2 (09:41→20:33)
[2024-08-17] MEDS: oxyCODONE HCl Immed Release 5 MG TABLET PO ×2 (10:53→15:29)
--- NOTE | 2024-08-17 13:08 | MHC.CM.PN ---
pt is independent has own ride home dc plan home no services
--- NOTE | 2024-08-17 17:08 | HO.OSTOMY ---
Ostomy Consult: Initial Teaching 59yr old female admitted to [facility] on 08/16/24 see H&P for detailed history and admission.? Consult for new ostomy teaching. She had an Diverting Loop Ileostomy creation on 08/[address] Spangler. ?Upon entry into patient's room, she is lying in her /bed, she is alert and oriented x 3. Introductions were completed.? We discussed his pain control at 11/29 at the current moment, she reports increasing the use of her IS. She reports she has not yet been out of bed due to pain. The patient does appear to be in a great deal of bobby at times - she is very sleepy at times. We agreed to defer teaching to a more appropriate time on Tuesday. Her who was at bedside reports he would like to be present for teaching. ?Written education left at bedside for further review. ?She did not watch the education videos supplied by [facility]. Permission was granted for pouch assessment and no leak was noted.? Stoma is dark red and appears viable through pouch Bridge in place. Small amount of liquid brown bilious noted in pouch - has not yet been emptied. Due to no output from stoma pouch is not needed to be changed at this time.? Will assess at next teaching. ?She reported having no questions at this time. ?Patient was made aware that I will return to bedside early next week for ongoing education, She will benefit from VNA services at time of discharge. ?All questions and concerns addressed at this time.
[2024-08-17] MEDS: Atorvastatin Calcium 10 MG TABLET PO (20:32)
[2024-08-17] MEDS: Losartan Potassium 50 MG TABLET 100 MG PO (20:32)
[2024-08-18] VITALS (7 sets, daily range): BP systolic 130–177; BP diastolic 62–90; PULSE 90–111; RESP 16–18; TEMP 36.4–37; O2SAT 92–95
[2024-08-18] MEDS: 0.9 % Sodium Chloride Flush 3 ML SYRINGE IVFLUSH ×2 (00:33→20:08)
[2024-08-18] MEDS: HYDROmorphone HCl 0.5 MG/0.5 ML SYRINGE IVPUSH ×5 (00:33→20:04)
[2024-08-18] MEDS: Lactated Ringers 1,000 ML 100 ML IVCONT ×2 (05:00→15:05)
[2024-08-18] MEDS: Omeprazole 20 MG CAPSULE.DR PO (06:19)
[2024-08-18] MEDS: oxyCODONE HCl Immed Release 5 MG TABLET PO ×2 (08:20→22:44)
--- NOTE | 2024-08-18 09:07 | PM.PNGS ---
Subjective Subjective Date of Service: 08/19/24 Interval history: Describes incisional pain She feels that her bladder is full She is able to void freely Ileostomy has been functioning well Tolerating liquids Physical Exam Vital Signs: Vital Signs: Last Vital Signs Temp 98.6 F 08/18/24 08:00 Pulse 108 H 08/18/24 08:00 Resp 18 08/18/24 08:00 BP 177/90 H 08/18/24 08:00 Pulse Ox 94 08/18/24 08:00 O2 Del Method Room Air 08/18/24 08:00 O2 Flow Rate 1 08/17/24 03:16 BMI result Body Mass Index 32.5 Const: Other: Complains of pain General: no acute distress Resp: Effort & Inspection: normal respiratory effort Cardio: Rate: tachycardic GI: Other: Incision clean and dry, ileostomy functioning well Palpation (GI): Soft to palpation and Tenderness to palpation present (GI) (Mostly on incision) Objective Data Active Medications Atorvastatin Calcium (Atorvastatin Calcium 10 Mg Tablet) 10 mg PO BEDTIME [facility] Last Admin: 08/17/24 20:32 Dose: 10 mg Documented By: BRENT Calcium Carbonate (Calcium Carbonate 750 Mg Tab.Chew) 750 mg PO Q4H PRN PRN Reason: Heartburn Hydromorphone HCl (Hydromorphone Hcl 0.5 Mg/0.5 Ml Syringe) 0.5 mg IVPUSH Q4H PRN; Protocol PRN Reason: Pain, Severe (Pain Scale 7-10) Last Admin: 08/18/24 04:57 Dose: 0.5 mg Documented By: LUZ ELENA Lactated Ringer's (Lr) 1,000 mls @ 100 mls/hr IVCONT .Q10H [facility] Last Admin: 08/18/24 05:00 Dose: 100 mls/hr Documented By: LUZ ELENA Acetaminophen (Ofirmev) 1,000 mg in 100 mls @ 400 mls/hr IV Q6H [facility] Last Admin: 08/18/24 04:59 Dose: Not Given Documented By: LUZ ELENA Non-Admin Reason: over max dose Losartan Potassium (Losartan Potassium 50 Mg Tablet) 100 mg PO BEDTIME [facility]; Protocol Last Admin: 08/17/24 20:32 Dose: 100 mg Documented By: BRENT Magnesium Hydroxide (Milk Of Magnesia 30 Ml Oral.Susp) 30 ml PO DAILY PRN PRN Reason: Constipation Melatonin (Melatonin 3 Mg Tablet) 6 mg PO BEDTIME PRN PRN Reason: Insomnia Omeprazole (Omeprazole 20 Mg Capsule.Dr) 20 mg PO DAILY@0630 [facility] Last Admin: 08/18/24 06:19 Dose: 20 mg Documented By: LUZ ELENA Ondansetron HCl (Ondansetron Hcl 4 Mg/2 Ml Vial) 4 mg IVPUSH Q8H PRN PRN Reason: Nausea and Vomiting Last Admin: 08/16/24 18:56 Dose: 4 mg Documented By: TATE Oxycodone HCl (Oxycodone Hcl Immed Release 5 Mg Tablet) 5 mg PO Q4H PRN PRN Reason: Pain, Moderate(Pain Scale 4-6) Last Admin: 08/18/24 08:20 Dose: 5 mg Documented By: ROSAURA Sodium Chloride (0.9 % Sodium Chloride Flush 3 Ml Syringe) 3 ml IVFLUSH [facility] Last Admin: 08/18/24 07:31 Dose: Not Given Documented By: ROSAURA Non-Admin Reason: IV Running Labs 08/19/24 05:57 08/19/24 05:57 Procedures Date of Service Date of Service: 08/19/24 Progress Note: A&P Assessment and plan (1) Diverticular disease: Status: Acute Assessment and Plan: Status post resection of the sigmoid, diverting loop ileostomy Has pain issues Continue Ofirmev, Dilaudid and oral narcotics Encouraged to get out of bed We will advance diet Incentive spirometry Repeat labs in the morning as postop labs show leukocytosis Stable otherwise Time Spent With Patient Time: Total time managing care of this patient today ____ minutes. Quality Stroke Does the patient have a stroke diagnosis?: No VTE Prior VTE?: No VTE Risk Level:: Surgical - low VTE Device Contraindication: N/A - Device Ordered VTE Drug Contraindication: Treatment Not Indicated
[2024-08-18] MEDS: Acetaminophen 1,000 MG/100 ML PIGGYBACK 400 MG IV ×3 (10:20→22:43)
[2024-08-18] MEDS: Losartan Potassium 50 MG TABLET 100 MG PO (20:03)
[2024-08-18] MEDS: Atorvastatin Calcium 10 MG TABLET PO (20:03)
[2024-08-19] MEDS: Lactated Ringers 1,000 ML 100 ML IVCONT (01:15)
[2024-08-19] MEDS: HYDROmorphone HCl 0.5 MG/0.5 ML SYRINGE IVPUSH ×5 (01:15→22:35)
[2024-08-19 03:26] VITALS: BP 174/86; PULSE 96; RESP 18; TEMP 36.3; O2SAT 97
[2024-08-19] MEDS: Omeprazole 20 MG CAPSULE.DR PO (05:07)
[2024-08-19 07:27] LABS: Hematocrit 29.3 % (37.0-47.0); Hemoglobin 9.3 g/dl (12.0-16.0); Mean Corpuscular HGB Conc 31.7 g/dl (31.0-35.0); Mean Corpuscular Hemoglobin 28.1 pg (27.0-33.0); Mean Corpuscular Volume 88.5 fL (80.0-98.0); Platelet Count 279 X10*3/uL (160-400); Red Blood Count 3.31 X10*6/uL (4.20-5.50); Red Cell Distribution Width 13.4 % (11.0-16.0); White Blood Count 16.2 X10*3/uL (4.8-10.8)
[2024-08-19 07:48] LABS: Anion Gap 11 (12-20); Blood Urea Nitrogen 5 mg/dL (9-16); Calcium 9.5 mg/dL (8.4-10.2); Carbon Dioxide 27 mmol/L (22-29); Chloride 104 mmol/L (96-108); Creatinine Clr Calc Pharmacy 104.4; Estimated Glomerular Filt Rate > 60; Glucose Random 114 mg/dL (60-115); Potassium 3.8 mmol/L (3.3-5.1); Sodium 138 mmol/L (135-145)
[2024-08-19] MEDS: 0.9 % Sodium Chloride Flush 3 ML SYRINGE IVFLUSH (07:58)
[2024-08-19 08:30] VITALS: BP 154/89; PULSE 104; RESP 18; TEMP 36.7; O2SAT 95
[2024-08-19] MEDS: oxyCODONE HCl Immed Release 5 MG TABLET PO (08:30)
--- NOTE | 2024-08-19 09:38 | P.PNGS_ITS ---
Subjective Subjective Date of Service: 08/19/24 Interval history: Complains of incisional pain Also says she has pain in the lower back Stoma has been functioning well She has been tolerating regular diet Ambulated well yesterday Physical Exam 2 Vital Signs: Vital Signs: Last Vital Signs Temp 98.0 F 08/19/24 08:30 Pulse 104 H 08/19/24 08:30 Resp 18 08/19/24 08:30 BP 154/89 H 08/19/24 08:30 Pulse Ox 95 08/19/24 08:30 O2 Del Method Room Air 08/19/24 08:30 O2 Flow Rate 1 08/17/24 03:16 BMI result Body Mass Index 32.5 Const: General: no acute distress Resp: Effort & Inspection: normal respiratory effort Cardio: Rate: tachycardic GI: Other: Incision clean, ileostomy with good output Palpation (GI): Soft to palpation Objective Data Active Medications Atorvastatin Calcium (Atorvastatin Calcium 10 Mg Tablet) 10 mg PO BEDTIME [facility] Last Admin: 08/18/24 20:03 Dose: 10 mg Documented By: LUZ ELENA Calcium Carbonate (Calcium Carbonate 750 Mg Tab.Chew) 750 mg PO Q4H PRN PRN Reason: Heartburn Hydromorphone HCl (Hydromorphone Hcl 0.5 Mg/0.5 Ml Syringe) 0.5 mg IVPUSH Q4H PRN; Protocol PRN Reason: Pain, Severe (Pain Scale 7-10) Last Admin: 08/19/24 05:06 Dose: 0.5 mg Documented By: LUZ ELENA Lactated Ringer's (Lr) 1,000 mls @ 80 mls/hr IVCONT .[id number] [facility]ALYA Last Infusion: 08/19/24 07:58 Dose: 0 mls/hr Documented By: DASHAWN Acetaminophen (Ofirmev) 1,000 mg in 100 mls @ 400 mls/hr IV Q6H [facility] Losartan Potassium (Losartan Potassium 50 Mg Tablet) 100 mg PO BEDTIME [facility]; Protocol Last Admin: 08/18/24 20:03 Dose: 100 mg Documented By: LUZ ELENA Magnesium Hydroxide (Milk Of Magnesia 30 Ml Oral.Susp) 30 ml PO DAILY PRN PRN Reason: Constipation Melatonin (Melatonin 3 Mg Tablet) 6 mg PO BEDTIME PRN PRN Reason: Insomnia Omeprazole (Omeprazole 20 Mg Capsule.) 20 mg PO DAILY@0630 [facility] Last Admin: 08/19/24 05:07 Dose: 20 mg Documented By: LUZ ELENA Ondansetron HCl (Ondansetron Hcl 4 Mg/2 Ml Vial) 4 mg IVPUSH Q8H PRN PRN Reason: Nausea and Vomiting Last Admin: 08/16/24 18:56 Dose: 4 mg Documented By: TATE Oxycodone HCl (Oxycodone Hcl Immed Release 5 Mg Tablet) 5 mg PO Q4H PRN PRN Reason: Pain, Moderate(Pain Scale 4-6) Last Admin: 08/19/24 08:30 Dose: 5 mg Documented By: DASHAWN Sodium Chloride (0.9 % Sodium Chloride Flush 3 Ml Syringe) [facility] Last Admin: 08/19/24 07:58 Dose: 3 ml Documented By: DASHAWN Labs 08/19/24 05:57 08/19/24 05:57 Labs: Laboratory Results - last 24 hr 08/19/24 08/19/24 05:57 05:59 MCV 88.5 MCH 28.1 MCHC 31.7 RDW 13.4 Plt Count 279 MPV 9.0 L Absolute Nucleated RBC 0.000 Nucleated RBC % (auto) 0.0 Hold Purple Top SEE NOTE Anion Gap 11 L Estim Creat Clear Calc 104.4 Estimated GFR > 60 Random Glucose 114 Calcium 9.5 Procedures Date of Service Date of Service: 08/19/24 Progress Note: A&P Assessment and plan (1) S/P colon resection: Status: Acute Assessment and Plan: Status post sigmoid resection, diverting loop ileostomy She has pain control issues We will adjust pain medications Continue Ofirmev Stoma otherwise functioning well She is tolerating regular diet WBC down Hemoglobin also has drifted - should monitor She has been ambulating Clinically looks well otherwise in the room as well during discussion Time Spent With Patient Time: Total time managing care of this patient today ____ minutes. Quality Stroke Does the patient have a stroke diagnosis?: No VTE Prior VTE?: No VTE Risk Level:: Surgical - low VTE Device Contraindication: N/A - Device Ordered VTE Drug Contraindication: Treatment Not Indicated
[2024-08-19] MEDS: Acetaminophen 1,000 MG/100 ML PIGGYBACK 400 MG IV ×2 (10:05→14:28)
[2024-08-19] MEDS: Lactated Ringers 1,000 ML 60 ML IVCONT (13:51)
[2024-08-19 15:31] VITALS: BP 129/72; PULSE 99; RESP 16; TEMP 37.7; O2SAT 95
[2024-08-19 19:23] VITALS: BP 176/101; PULSE 98; RESP 18; TEMP 36.6; O2SAT 94
[2024-08-19] MEDS: Losartan Potassium 50 MG TABLET 100 MG PO (19:38)
[2024-08-19] MEDS: Atorvastatin Calcium 10 MG TABLET PO (19:38)
[2024-08-19 23:27] VITALS: BP 178/88; PULSE 102; RESP 18; TEMP 37.7; O2SAT 96
[2024-08-20] MEDS: oxyCODONE HCl Immed Release 5 MG TABLET 10 MG PO ×5 (00:36→16:37)
[2024-08-20 01:00] VITALS: RESP 16
[2024-08-20] MEDS: Acetaminophen 1,000 MG/100 ML PIGGYBACK 400 MG IV ×2 (02:49→08:15)
[2024-08-20 04:00] VITALS: BP 157/95; PULSE 101; RESP 16; TEMP 36.4; O2SAT 94
[2024-08-20] MEDS: Omeprazole 20 MG CAPSULE.DR PO (05:52)
[2024-08-20 05:54] VITALS: BP 139/92; PULSE 107
--- NOTE | 2024-08-20 06:49 | PM.PNGS ---
Subjective Subjective Date of Service: 08/20/24 <Hawa Delfino - Last Filed: 08/20/24 06:58> 08/20/24 <Cristiana Pena PA-C - Last Filed: 08/20/24 08:56> 08/20/24 <Oneil Spangler MD - Last Filed: 08/20/24 09:12> Interval history: Patient states she is feeling better this morning, last night she was in a great deal of pain within her abdomen and was given oxycodone and ofirmev which helped. She is feeling stronger overall. Reports flatulence and bowel movement through ileostomy. Urinating frequently. Tolerate regular diet and liquids. Ambulating during the day. <[employer]Delfino - Last Filed: 08/20/24 06:58> Physical Exam Vital Signs: Vital Signs: Last Vital Signs Temp 97.6 F 08/20/24 04:00 Pulse 107 H 08/20/24 05:54 Resp 16 08/20/24 04:00 BP 139/92 H 08/20/24 05:54 Pulse Ox 94 08/20/24 04:00 O2 Del Method Room Air 08/20/24 04:00 O2 Flow Rate 1 08/17/24 03:16 BMI result Body Mass Index 32.5 <[employer]Delfino - Last Filed: 08/20/24 06:58> Const: General: no acute distress, alert and awake <[employer]Delfino - Last Filed: 08/20/24 06:58> Orientation/consciousness: patient oriented x3 <[employer] - Last Filed: 08/20/24 06:58> Resp: Effort & Inspection: normal respiratory effort and able to speak in complete sentences <Hawa Delfino - Last Filed: 08/20/24 06:58> Cardio: Rate: regular rate <Hawa Delfino - Last Filed: 08/20/24 06:58> Rhythm: regular rhythm <Hawa Delfino - Last Filed: 08/20/24 06:58> Peripheral pulses: radial pulses present <Hawa Delfino - Last Filed: 08/20/24 06:58> GI: Other: Incision not visible, dressing was clean with no blood or purulent discharge Stoma pink with brown liquid in the bag Abdomen soft, tenderness to palpation present <Hawa Saleh - Last Filed: 08/20/24 06:58> Other: Incision clean, steris intact Stoma pink with brown liquid in the bag Abdomen soft, mild tenderness to palpation present <JOELLEN Givens Last Filed: 08/20/24 08:56> Palpation (GI): no guarding <Cristiana Pena PA-C - Last Filed: 08/20/24 08:56> Skin: General skin exam: no rashes or lesions noted <Cristiana Pena PA-C - Last Filed: 08/20/24 08:56> Neuro: General: patient oriented x3 <Hawa Finch Last Filed: 08/20/24 06:58> Objective Data Active Medications Atorvastatin Calcium (Atorvastatin Calcium 10 Mg Tablet) 10 mg PO BEDTIME [facility] Last Admin: 08/19/24 19:38 Dose: 10 mg Documented By: LUZ ELENA Calcium Carbonate (Calcium Carbonate 750 Mg Tab.Chew) 750 mg PO Q4H PRN PRN Reason: Heartburn Hydromorphone HCl (Hydromorphone Hcl 0.5 Mg/0.5 Ml Syringe) 0.5 mg IVPUSH Q3H PRN; Protocol PRN Reason: Pain, Severe (Pain Scale 7-10) Last Admin: 08/19/24 22:35 Dose: 0.5 mg Documented By: LUZ ELENA Lactated Ringer's (Lr) 1,000 mls @ 60 mls/hr IVCONT .[id number] [facility] Last Admin: 08/20/24 02:00 Dose: Not Given Documented By: YOLY Non-Admin Reason: IV Running Acetaminophen (Ofirmev) 1,000 mg in 100 mls @ 400 mls/hr IV Q6H [facility] Last Infusion: 08/20/24 03:17 Dose: Infused Documented By: YOLY Losartan Potassium (Losartan Potassium 50 Mg Tablet) 100 mg PO BEDTIME [facility]; Protocol Last Admin: 08/19/24 19:38 Dose: 100 mg Documented By: LUZ ELENA Magnesium Hydroxide (Milk Of Magnesia 30 Ml Oral.Susp) 30 ml PO DAILY PRN PRN Reason: Constipation Melatonin (Melatonin 3 Mg Tablet) 6 mg PO BEDTIME PRN PRN Reason: Insomnia Omeprazole (Omeprazole 20 Mg Capsule.Dr) 20 mg PO DAILY@0630 [facility] Last Admin: 08/20/24 05:52 Dose: 20 mg Documented By: YOLY Ondansetron HCl (Ondansetron Hcl 4 Mg/2 Ml Vial) 4 mg IVPUSH Q8H PRN PRN Reason: Nausea and Vomiting Last Admin: 08/16/24 18:56 Dose: 4 mg Documented By: TATE Oxycodone HCl (Oxycodone Hcl Immed Release 5 Mg Tablet) 10 mg PO Q4H PRN PRN Reason: Pain, Moderate(Pain Scale 4-6) Last Admin: 08/20/24 05:53 Dose: 10 mg Documented By: YOLY Sodium Chloride (0.9 % Sodium Chloride Flush 3 Ml Syringe) 3 ml IVFLUSH [facility] Last Admin: 08/20/24 00:42 Dose: Not Given Documented By: YOLY Non-Admin Reason: IV Running <Hawa Delfino - Last Filed: 08/20/24 06:58> Labs CBC & Chem 7: 08/19/24 05:57 08/19/24 05:57 <Hawa Delfino - Last Filed: 08/20/24 06:58> Labs: Laboratory Results - last 24 hr 08/19/24 08/19/24 05:57 05:59 MCV 88.5 MCH 28.1 MCHC 31.7 RDW 13.4 Plt Count 279 MPV 9.0 L Absolute Nucleated RBC 0.000 Nucleated RBC % (auto) 0.0 Hold Purple Top SEE NOTE Anion Gap 11 L Estim Creat Clear Calc 104.4 Estimated GFR > 60 Random Glucose 114 Calcium 9.5 <Hawa Delfino - Last Filed: 08/20/24 06:58> Procedures Date of Service Date of Service: 08/20/24 <Hawa Delfino - Last Filed: 08/20/24 06:58> 08/20/24 <Cristiana Pena PA-C - Last Filed: 08/20/24 08:56> 08/20/24 <Oneil Spangler MD - Last Filed: 08/20/24 09:12> Progress Note: A&P Assessment and plan (1) S/P colon resection: Status: Acute <Hawa Saleh - Last Filed: 08/20/24 06:58> Assessment and Plan: Christel is post-op day 4 from sigmoid resection and divert ileostomy. Pain is being managed with oxycodone and ofirmev as needed. She has a mild appetite and is beginning to tolerate a regular diet and liquids. She is urinating. She is encouraged to continue ambulating during the day and using the spirometry 10x every hour. <Hawa Saleh - Last Filed: 08/20/24 06:58> Christel is post-op day 4 from sigmoid resection and divert ileostomy. Pain is being managed with oxycodone and ofirmev as needed. She has a mild appetite and is beginning to tolerate a regular diet and liquids. She is urinating. She is encouraged to continue ambulating during the day and using the spirometry 10x every hour. Agree with above assessment and plan by Hawa RAJAN. Patient POD #4 s/p exploratory laparotomy, sigmoid resection, transanal colorectal anastomosis, diverting loop ileostomy. Doing overall well post op. Tolerating solid diet. VSS. Abd exam benign, incision clean, appropriate post op tenderness. Ostomy viable with stool output. Encouraged oral analgesics today, continue ostomy education. Will remove bridge. If remains comfortable, possible dc to home later today. <Cristiana Pena PA-C - Last Filed: 08/20/24 08:56> Christel is post-op day 4 from sigmoid resection and divert ileostomy. Pain is being managed with oxycodone and ofirmev as needed. She has a mild appetite and is beginning to tolerate a regular diet and liquids. She is urinating. She is encouraged to continue ambulating during the day and using the spirometry 10x every hour. Agree with above assessment and plan by Hawa RAJAN. Patient POD #4 s/p exploratory laparotomy, sigmoid resection, transanal colorectal anastomosis, diverting loop ileostomy. Doing overall well post op. Tolerating solid diet. VSS. Abd exam benign, incision clean, appropriate post op tenderness. Ostomy viable with stool output. Encouraged oral analgesics today, continue ostomy education. Will remove bridge. If remains comfortable, possible dc to home later today. As noted above <Oneil Spangler MD - Last Filed: 08/20/24 09:12> Time Spent With Patient Time: Total time managing care of this patient today ____ minutes. <Hawa Grimaldoo - Last Filed: 08/20/24 06:58> Quality Stroke Does the patient have a stroke diagnosis?: No <Hawa Delfino - Last Filed: 08/20/24 06:58> VTE Prior VTE?: No <Hawa Delfino - Last Filed: 08/20/24 06:58> VTE Risk Level:: Surgical - low <Hawa Delfino - Last Filed: 08/20/24 06:58> VTE Device Contraindication: N/A - Device Ordered <Hawa Delfino - Last Filed: 08/20/24 06:58> VTE Drug Contraindication: Treatment Not Indicated <Hawa Delfino - Last Filed: 08/20/24 06:58>
[2024-08-20 07:29] VITALS: BP 138/77; PULSE 89; RESP 16; TEMP 36.3; O2SAT 93
[2024-08-20] MEDS: Lactated Ringers 1,000 ML 60 ML IVCONT (08:18)
[2024-08-20 11:43] VITALS: BP 128/69; PULSE 91; RESP 16; TEMP 36; O2SAT 93
--- NOTE | 2024-08-20 12:43 | HO.OSTOMY ---
Ostomy Consult: Initial Teaching 59yr old female admitted to [facility] on 08/16/24 see H&P for detailed history and admission.? Consult for new ostomy teaching. She had an Diverting Loop Ileostomy creation on 08/[address] Spangler. ?Upon entry into patient's room, she is lying in her /bed, she is alert and oriented x 3. Introductions were completed.? We discussed his pain control at 5/10 at the current moment, she reports increasing the use of her IS. She reports she has ambulated 2-3 times yesterday and she was educated to attempt to ambulate 3-4 times today. Her was at bedside and participated in education. We began by discussing general knowledge about the Ileostomy and questions she had. ?We discussed opening and closing the ostomy pouch. She was able to independently provide a return demonstration on an empty pouch. ?She had not yet emptied her pouch but was agreeable to doing so.? We discussed the importance of emptying pouch when 1/3 to 1/2 full, how to empty pouch, and lining water with toilet paper to prevent splash back. With an empty Coloplast pouch she performed a demonstration. She was also educated on when to contact pipe cutter/Dr Spangler's office/seek emergency medical treatment. Patient was given some ostomy pouches for transition to home. Aware that Rx written for pouches and barrier strip will be sent by Outpt nurse to [facility] for home delivery.? Reviewed written education with patient and left at bedside for further review. ?She and her did watch the education videos supplied by [facility]. Permission was granted for pouch assessment and no leak was noted.? She was agreeable to a pouch change. We performed a model stoma change and then performed her pouch change. Stoma is red with some slight slough noted to edges, MCJ intact - bridge removed prior to assessment by General Surgery PA. Flush to skin level - will likely benefit from convex pouch in future. She did watch throughout the change in addition to her but did not participate. We discussed dietary restriction and s/s for dehydration and educated on rehydration drinks. We discussed food items to thicken her stool - she was able to teach back at the end of the teaching session. She reported having no questions at this time. ? She will benefit from VNA services at time of discharge. ?All questions and concerns addressed at this time. We discussed the following steps: 1. Empty pouch before pouch change 2. Remove pouch using push/pull technique from top to bottom 3. Cleanse stoma and skin with tap water only - no soap or baby wipes 4. Pat dry 5. Measure stoma and cut new pouch no more than 1/8 inch larger than stoma and no smaller than stoma 6. If instructed by your ostomy nurse stretch barrier seal to the size of the stoma and press onto skin around stoma (up to the edge of the stoma but not onto the stoma) 7. Press the new pouch into place and hold for several minutes (close pouch tail) 8. Empty pouch when 1/3 to 1/2 full 9. Change pouch twice weekly on a schedule (for example, every Tuesday and ) and as needed for any leaking (feels like intense itch or burn at edge of stoma) 10. May order pre-cut pouches (already cut to size of stoma) once stoma measures the same size consistently. ?
[2024-08-20] MEDS: Acetaminophen 325 MG TABLET 650 MG PO (13:15)
--- NOTE | 2024-08-20 14:31 | W.MHC.F2F ---
Service Date Service Date: 08/20/24 Encounter Date of encounter: 08/20/24 Reasons for Services Signs and symptoms assessed: abdominal pain, incision appearance, PO intake, ileostomy output and appearance Reason for [facility]: wound care and postoperative assessment and/or care Homebound: Leaving the home is medically contraindicated at this time without the asist of a device and/or another person due th the listed conditions above and below. Reason homebound: weakness related to hospital stay and unable to drive Homebound supporting statement: Ms. Correa is s/p ex lap, sigmoid resection, colorectal anastomosis, diverting loop ileostomy. She will need VNA services for ostomy care. Certification: Based on the above findings, I certify that this patient is confined to the home and needs intermittent [facility] care, physical therapy and/or speech therapy, or continues to need occupational therapy. The patient is under my care, and I have initiated the establishment of the plan of care. The patient will be followed by a physician who will periodically review the plan of care. Time Spent With Patient Time: Total time managing care of this patient today ____ minutes.
--- NOTE | 2024-08-20 15:19 | MHC.CM.PN ---
pt dcd home with ns
[2024-08-20 15:31] VITALS: BP 120/80; PULSE 109; RESP 20; TEMP 36.5; O2SAT 96
--- NOTE | 2024-08-20 16:48 | P.DS_ITS ---
DS: Providers Provider Date of Service: 08/20/24 Date of admission: 08/16/24 07:33 Date of discharge: 08/20/24 Primary care physician: Isaac Field MD Attending physician on admission: Oneil Spangler Consults: 08/16/24 12:35 Consult to Ostomy Care Routine Attending physician on discharge: Oneil Spangler DS: Diagnosis Discharge Diagnosis (1) S/P colon resection: Status: Acute DS: Summary Hospital Course Hospital Course: HPI AT ADMISSION: Patient presents status post recent CT scan of the abdomen pelvis because of lower abdominal pain and bladder symptoms. Patient has history of diverticular disease. Her CT scan demonstrated significant diverticular disease involving not only the sigmoid colon but the urinary bladde r which would account for her symptoms. These are of pressure and frequency. She has not had any fecal urea or pneumaturia. As noted above, patient was longstanding history of diverticular disease. She had colonoscopy few months ago. She has persistent GI symptoms as well although no acute attacks over the last several weeks. Chart was reviewed and patient evaluated. Patient has been seen by me in the past. Because of the very significant CT scan findings of her sigmoid colon literally invading into her bladder, I discussed with the patient that she should consider elective surgical resection to avert possible fistulization and a more urgent situation from her chronic diverticular disease. She now presents for the planned open sigmoid resection, possible ostomy. HOSPITAL COURSE: On 08/16/24, exploratory laparotomy, enterolysis, sigmoid resection, takedown splenic flexure, transanal colorectal anastomosis, proctosigmoidoscopy was performed by Dr. Spangler without immediate complications. The patient tolerated the procedure well and was admitted to the medical/surgical floor for observation. She had an uncomplicated recovery course. Her ileostomy began functioning on POD #1 however she was kept on clear liquids as she had abd distention. Her lim was removed and she was voiding on her own. She was ambulated and her activity increased. She was advanced to solids the following day. Her ileostomy continued to function well. Her incisional pain gradually improved. Ostomy education was performed. On the day of discharge, she was tolerating a solid diet without nausea or vomiting. She had mild incisional pain and was controlled on oral analgesics. She was ambulating without difficulty. She was hemodynamically stable with a benign abd exam and clean incision, viable appearing ostomy with good output. Her ileostomy bridge was removed. She felt ready for discharge. She was discharged to home on 08/20/24 in stable condition with VNA services for ostomy care. She is to follow up in the office in 1 week. Status at Discharge Functional status at discharge: independent ambulation Overall status at discharge: patient is progressing back to baseline Time Attestation Discharge Coordination Time (in mins): 40 Quality: Safe Use of Opioids Does Pt have an Active Cancer Diagnosis on the Problem List?: No Quality: Stroke Does the patient have a stroke diagnosis?: No Physical Exam Vital Signs: Vital Signs: Last Vital Signs Temp 97.7 F 08/20/24 15:31 Pulse 109 H 08/20/24 15:31 Resp 20 08/20/24 15:31 BP 120/80 08/20/24 15:31 Pulse Ox 96 08/20/24 15:31 O2 Del Method Room Air 08/20/24 15:31 O2 Flow Rate 1 08/17/24 03:16 BMI result Body Mass Index 32.5 Const: General: comfortable, no acute distress and alert Orienta tion/consciousness: patient oriented x3 Resp: Effort & Inspection: normal respiratory effort GI: Other: ostomy pink, bridge removed, liquid stool in appliance Inspection: No distended and Yes incision (clean, steris intact ) Palpation (GI): Soft to palpation, Tenderness to palpation present (GI) (mild incisional) and no guarding Skin: General skin exam: no rashes or lesions noted Neuro: General: patient oriented x3 and moves all extremities DS: Data Data Completed and Pending Completed studies during hospitalization [Text1]: PATHOLOGY A. Colon, sigmoid, segmental resection: Diverticular associated segmental colitis. B. Colon, EEA donuts: Colonic tissue with denuded surface epithelium; otherwise within normal limits. C. Colon, distal sigmoid and rectum, segmental resection: Colon with focal active mucosal inflammation and erosion; otherwise within normal limits Discharge Plan Discharge Anticipated Discharge Date/Time: 08/21/24 08:56 Patient Disposition: Home Health Service Discharge Diagnosis: hx of diverticulitis, s/p sigmoid resection, diverting loop ileostomy Referrals: [facility] [Other] - 1 Week Po,Isaac Sequeira MD [Primary Care Provider] - 1 Week Oneil Spangler MD [Physician] - 1 Week Discharge Medications: New oxycodone 5 mg tablet 5 mg PO Q4H PRN (Reason: pain (scale score 7-10)) Qty: 26 0RF Rx Instructions: Partial Fill upon patient request. Continued losartan 100 mg tablet 100 mg PO BEDTIME omeprazole 20 mg Capsule,Delayed Release(Dr/Ec) 20 mg PO DAILY simvastatin 20 mg tablet 20 mg PO BEDTIME Qty: 90 3RF ondansetron 4 mg tablet,disintegrating 4 mg PO Q8H PRN (Reason: nausea and vomiting) Qty: 20 0RF Discharge Orders: Discharge Order (Routine); Ordered 08/20/24 Ordered By: Cristiana Pena Diet: Advance to usual diet Activity on Discharge: No heavy lifting Stand Alone Forms: Patient Portal Discharge page Print Language: Divehi Activity Restrictions/Additional Instructions: Apply an ice pack for short intervals (20 minutes on, followed by at least 20 minutes off) for the first 2 days. Do not apply heat. Do not use creams, lotions, or topical antibiotics. These can cause infection or allergic reaction. Ok to shower. No tub bath. You have steri strips (small white cloth strips) covering your incision- these will fall off ~1 week. Follow up in office with Dr. Spangler in 1 week. ([phone]) No heavy lifting (>10lbs) or strenuous activity! Call Your Doctor If: -Your temperature exceeds 101.5? F -You experience excessive pain or swelling -You have an unexpected reaction to medication -You have excessive bleeding -You experience continued vomiting/nausea -Your incision begins to separate -Your incision shows signs of infection such as increased redness, swelling, excessive pain, drainage (light blood or clear fluid is normal) or heat Ostomy recommendations: 1. Empty pouch before pouch change 2. Remove pouch using push/pull technique from top to bottom 3. Cleanse stoma and skin with tap water only - no soap or baby wipes 4. Pat dry 5. Measure stoma and cut new pouch no more than 1/8 inch larger than stoma and no smaller than stoma 6. If instructed by your ostomy nurse stretch barrier seal to the size of the stoma and press onto skin around stoma (up to the edge of the stoma but not onto the stoma) 7. Press the new pouch into place and hold for several minutes (close pouch tail) 8. Empty pouch when 1/3 to 1/2 full 9. Change pouch twice weekly on a schedule (for example, every Tuesday and ) and as needed for any leaking (feels like intense itch or burn at edge of stoma) ? Care Plan Goals: Return to baseline health and resume normal activities following recovery period . Health Concerns: recurrent diverticulitis Plan of Treatment: s/p sigmoid resection, diverting loop ileostomy home with VNA services f/u in office in 1 week Assessment: Doing well post op. Discharge Date/Time: 08/20/24 17:00
== END 2024-08-20 17:00 | disposition home health service (06) | DRG 230 ==
LOC: HO.SSSA 07:34 → HO.S3 11:57
PROVIDERS: Physician Assistant Surgical; Surgery; Admitting Provider Surgery; PCP Internal Medicine; Visit Provider Surgery
PROC: 0D1B0Z4 Bypass Ileum to Cutaneous, Open Approach (ICD-10-PCS; principal; 2024-08-16 07:30)
DX: K57.32 Diverticulitis of large intestine without perforation or abscess without bleeding (principal); G89.18 Other acute postprocedural pain; K66.0 Peritoneal adhesions (postprocedural) (postinfection); Z79.899 Other long term (current) drug therapy
CPT/HCPCS: 36415; 80048; 85025; 85027; 86850; 86900; 86901; 88304; 88305; 88307; J0131; J0690; J1100; J1171; J1610; J1805; J1920; J2003; J2250; J2371; J2405; J2704; J2795; J3010; J7120

== ENCOUNTER → 2024-08-16 07:33 | Outpatient (BNV) | payer BC, SELFPAY | PROVIDERS: Admitting Provider Surgery; PCP Internal Medicine; Visit Provider Surgery | DX: K57.32 Diverticulitis of large intestine without perforation or abscess without bleeding (principal); Z90.49 Acquired absence of other specified parts of digestive tract | CPT/HCPCS: 44139; 44140; 99024; G0180 ==

== ENCOUNTER 2024-08-24 11:30 | Observation (INO) | payer BC, SELFPAY ==
[2024-08-24 11:34] VITALS: BP 135/68; PULSE 99; RESP 18; TEMP 36.7; O2SAT 100; BMI 30.3
--- NOTE | 2024-08-24 11:34 | ED_ITS ---
HPI - General Adult General Chief complaint: Abdominal Pain Stated complaint: Incision site Infection Time Seen by Provider: 08/24/24 13:21 Related Data Home Medications ?Medication ?Instructions ?Recorded ?Confirmed losartan 100 mg tablet 100 mg PO BEDTIME 06/26/24 08/21/24 omeprazole 20 mg capsule,delayed 20 mg PO DAILY 08/16/24 08/21/24 release Previous Rx's ?Medication ?Instructions ?Recorded simvastatin 20 mg tablet 20 mg PO BEDTIME #90 tabs 06/05/24 ondansetron 4 mg disintegrating 4 mg PO Q8H PRN nausea and 06/20/24 tablet vomiting #20 tabs oxycodone 5 mg tablet 5 mg PO Q4H PRN pain (scale score 08/20/24 7-10) #26 tabs Allergies Allergy/AdvReac Type Severity Reaction Status Date / Time lisinopril AdvReac Intermediate Cough Verified 08/24/24 11:37 PMFSH Past Medical History Medical History Habitual snoring Dysuria Diverticulitis large intestine w/o perforation or abscess w/o bleeding Hypokalemia Anemia Impaired glucose tolerance Acute allergic reaction Fatty liver Irritable bowel syndrome Hypertension History of renal calculi Hypercholesterolemia GERD (gastroesophageal reflux disease) Obesity (BMI 30-39.9) Surgical History Hx of section History of diverticulitis Hx of colonoscopy History of esophagogastroduodenoscopy (EGD) Hx of arthroscopy of left knee Hx of arthroscopy of right knee History of lithotripsy Hx of appendectomy H/O tubal ligation History of abdominal hysterectomy Family History Family History Father Brain tumor Mother Hypertension CVD (cardiovascular disease) Social History Social History Household Members: Spouse Household Members Other:: at bedside Housing: House Are you a primary out of school hours care worker to a significant other at home: No Do you presently have visiting nurse or other home services: No Alcohol intake: never Comment: COUNTS CORRECT Patient Tobacco Use Status: Never used Tobacco e-Cigarette/Vaping Use: Never Used Second Hand Smoke Exposure: No Substance Use Type: Sedatives Advance Directives: No Advance Directives Information Provided: No service: No Current occupational status: employed Current occupational exposures/hazards: No Cognitive needs: No Hearing needs: No Vision needs: Yes Physical Exam ED Vital Signs: Vital Signs - 24 hr 08/24/24 11:34 08/24/24 13:17 Temperature 98.1 F 98.3 F Pulse Rate 99 98 Respiratory Rate 18 18 Blood Pressure 135/68 132/71 Pulse Oximetry 100 99 Oxygen Delivery Method Room Air Room Air BMI result Body Mass Index 30.3 Course Course Course Narrative: RME performed by Yadi Fernandez PA-C. Patient is a 59 year old assigned female at presenting to the emergency department with an infected surgical incision. Patient states that on 08/16/2024 she had a colectomy with Dr. Spangler and her visiting nurse saw her incision and told her it looks infected. Incision does appear erythematous, warm, and draining. Detailed physical exam and review of systems are deferred to the police or patrol park officer. Labs ordered. tennis ball coverer hand aware. Patient placed back in the waiting room pending room availability and results. Medications Administered Generic Name Dose Route Start Last Admin Trade Name Freq PRN Reason Stop Dose Admin Sodium Chloride 1,000 mls @ 999 mls/hr 08/24/24 13:58 08/24/24 14:00 Ns IV 08/24/24 14:58 999 mls/hr .Q1H1M STA Administration Discontinued Medications Generic Name Dose Route Start Last Admin Trade Name Freq PRN Reason Stop Dose Admin Hydromorphone HCl 0.5 mg 08/24/24 13:47 08/24/24 13:53 Hydromorphone Hcl 0.5 Mg/0.5 Ml Syringe IVPUSH 08/24/24 13:48 0.5 mg ONCE ONE Administration Protocol Piperacillin Sod/Tazobactam 100 mls @ 200 mls/hr 08/24/24 13:27 08/24/24 14:21 Sod 4.5 gm/ Sodium Chloride IV 08/24/24 13:56 Infused ONCE ONE Infusion Ondansetron HCl 4 mg 08/24/24 13:47 08/24/24 13:54 Ondansetron Hcl 4 Mg/2 Ml Vial IVPUSH 08/24/24 13:48 4 mg ONCE ONE Administration Medical Decision Making Lab Data 08/24/24 12:06 08/24/24 12:06 Labs: Lab Results 08/24/24 08/24/24 Range/Units 12:06 13:42 WBC 13.8 H (4.8-10.8) X10*3/uL RBC 3.33 L (4.20-5.50) X10*6/uL Hgb 9.4 L (12.0-16.0) g/dl Hct 29.1 L (37.0-47.0) % MCV 87.4 (80.0-98.0) fL MCH 28.2 (27.0-33.0) pg MCHC 32.3 (31.0-35.0) g/dl RDW 13.1 (11.0-16.0) % Plt Count 482 H D (160-400) X10*3/uL MPV 8.2 L (9.4-12.3) fL Immature Gran % (Auto) 1.5 H (0.0-0.4) % Neut % (Auto) 71.6 (45-73) % Lymph % (Auto) 16.2 L (20-40) % [place] % (Auto) 6.7 (2-11) % Eos % (Auto) 3.7 (0-4) % Baso % (Auto) 0.3 (0-2) % Lymph # (Auto) 2.2 (1.2-4.9) X10*3/uL [place] # (Auto) 0.9 (0.1-1.2) X10*3/uL Eos # (Auto) 0.5 H (0.0-0.4) X10*3/uL Baso # (Auto) 0.0 (0.0-0.2) X10*3/uL Abs Immat Gran (auto) 0.21 H (0.00-0.03) X10*3/uL Absolute Neuts (auto) 9.9 H (2.0-8.3) x10*3/uL Absolute Nucleated RBC 0.000 (0.0-0.012) X10*3/uL Nucleated RBC % (auto) 0.0 (0.0-0.2) /100WBC ESR 109 H (0-20) MM/HR Sodium 140 (135-145) mmol/L Potassium 4.0 (3.3-5.1) mmol/L Chloride 107 (96-108) mmol/L Carbon Dioxide 26 (22-29) mmol/L Anion Gap 11 L (12-20) BUN 11 (9-16) mg/dL Creatinine 0.65 (0.5-1.4) mg/dL Estim Creat Clear Calc 88.4 Estimated GFR > 60 Random Glucose 108 (60-115) mg/dL Lactic Acid 2.0 (0.5-2.0) mmol/L Calcium 9.8 (8.4-10.2) mg/dL Magnesium 2.0 (1.6-2.6) mg/dL Total Bilirubin 0.3 (0.0-1.0) mg/dL AST 28 (5-31) U/L ALT 22 (0-31) U/L Alkaline Phosphatase 120 H (39-117) U/L C-Reactive Protein 10.28 H (< or = 0.50) mg/dL Total Protein 7.0 (6.5-8.0) g/dL Albumin 3.5 (3.5-5.0) g/dL Discharge Plan Discharge Clinical Impression: Infected wound Patient Disposition: Admitted As Inpatient Print Language: Palestinian
[2024-08-24 12:12] LABS: MANUAL DIFF FLAG NO
[2024-08-24 12:15] LABS: Basophils Percent Auto 0.3 % (0-2); Eosinophils Absolute Auto 0.5 X10*3/uL (0.0-0.4); Eosinophils Percent Auto 3.7 % (0-4); Hematocrit 29.1 % (37.0-47.0); Hemoglobin 9.4 g/dl (12.0-16.0); Imm Gran Abs Auto 0.21 X10*3/uL (0.00-0.03); Imm Gran Pct Auto 1.5 % (0.0-0.4); Lymphocytes Absolute Auto 2.2 X10*3/uL (1.2-4.9); Lymphocytes Percent Auto 16.2 % (20-40); Mean Corpuscular HGB Conc 32.3 g/dl (31.0-35.0); Mean Corpuscular Hemoglobin 28.2 pg (27.0-33.0); Mean Corpuscular Volume 87.4 fL (80.0-98.0); Mean Platelet Volume 8.2 fL (9.4-12.3); Monocytes Absolute Auto 0.9 X10*3/uL (0.1-1.2); Monocytes Percent Auto 6.7 % (2-11); Neutrophils Absolute Auto 9.9 x10*3/uL (2.0-8.3); Neutrophils Percent Auto 71.6 % (45-73); Platelet Count 482 X10*3/uL (160-400); Red Blood Count 3.33 X10*6/uL (4.20-5.50); Red Cell Distribution Width 13.1 % (11.0-16.0); White Blood Count 13.8 X10*3/uL (4.8-10.8)
[2024-08-24 12:32] LABS: Alanine Aminotransferase 22 U/L (0-31); Albumin Level 3.5 g/dL (3.5-5.0); Alkaline Phosphatase 120 U/L (39-117); Anion Gap 11 (12-20); Aspartate Amino Transferase 28 U/L (5-31); Bilirubin Total 0.3 mg/dL (0.0-1.0); Blood Urea Nitrogen 11 mg/dL (9-16); C Reactive Protein 10.28 mg/dL (< or = 0.50); Calcium 9.8 mg/dL (8.4-10.2); Carbon Dioxide 26 mmol/L (22-29); Chloride 107 mmol/L (96-108); Creatinine Clr Calc Pharmacy 88.4; Estimated Glomerular Filt Rate > 60; Glucose Random 108 mg/dL (60-115); Sodium 140 mmol/L (135-145)
[2024-08-24 12:51] LABS: Erythrocyte Sedimentation Rate 109 MM/HR (0-20)
[2024-08-24 13:17] VITALS: BP 132/71; PULSE 98; RESP 18; TEMP 36.8; O2SAT 99
--- NOTE | 2024-08-24 13:49 | ED.ABDPAIN ---
HPI - Abdominal Pain General Chief Complaint: Abdominal Pain Stated Complaint: Incision site Infection Time Seen by Provider: 08/24/24 13:21 History of Present Illness HPI narrative: Patient is a 59-year-old female with a history of diverticulitis status post colectomy done on August 16 at [facility] with Dr. Spangler. Presented today with having increasing discharge from the wound increasing redness from the wound. Patient from home there is no systemic fever. Feels very weak and tired. Related Data Home Medications ?Medication ?Instructions ?Recorded ?Confirmed losartan 100 mg tablet 100 mg PO BEDTIME 06/26/24 08/21/24 omeprazole 20 mg capsule,delayed 20 mg PO DAILY 08/16/24 08/21/24 release Previous Rx's ?Medication ?Instructions ?Recorded simvastatin 20 mg tablet 20 mg PO BEDTIME #90 tabs 06/05/24 ondansetron 4 mg disintegrating 4 mg PO Q8H PRN nausea and 06/20/24 tablet vomiting #20 tabs oxycodone 5 mg tablet 5 mg PO Q4H PRN pain (scale score 08/20/24 7-10) #26 tabs Allergies Allergy/AdvReac Type Severity Reaction Status Date / Time lisinopril AdvReac Intermediate Cough Verified 08/24/24 11:37 Review of Systems Review of Systems Positive increased drainage from the wound positive generalized malaise Yes all other systems are reviewed and are negative PMFSH Past Medical History Attestation statement: The following information was validated with the patient. Medical History Habitual snoring Dysuria Diverticulitis large intestine w/o perforation or abscess w/o bleeding Hypokalemia Anemia Impaired glucose tolerance Acute allergic reaction Fatty liver Irritable bowel syndrome Hypertension History of renal calculi Hypercholesterolemia GERD (gastroesophageal reflux disease) Obesity (BMI 30-39.9) Surgical History Hx of section History of diverticulitis Hx of colonoscopy History of esophagogastroduodenoscopy (EGD) Hx of arthroscopy of left knee Hx of arthroscopy of right knee History of lithotripsy Hx of appendectomy H/O tubal ligation History of abdominal hysterectomy Family History Family History Father Brain tumor Mother Hypertension CVD (cardiovascular disease) Social History Social History Household Members: Spouse Household Members Other:: at bedside Housing: House Are you a primary healthcare advisory services manager to a significant other at home: No Do you presently have visiting nurse or other home services: No Alcohol intake: never Comment: COUNTS CORRECT Patient Tobacco Use Status: Never used Tobacco e-Cigarette/Vaping Use: Never Used Second Hand Smoke Exposure: No Substance Use Type: Sedatives Advance Directives: No Advance Directives Information Provided: No service: No Current occupational status: employed Current occupational exposures/hazards: No Cognitive needs: No Hearing needs: No Vision needs: Yes Physical Exam ED Vital Signs: Vital Signs - 24 hr 08/24/24 11:34 08/24/24 13:17 Temperature 98.1 F 98.3 F Pulse Rate 99 98 Respiratory Rate 18 18 Blood Pressure 135/68 132/71 Pulse Oximetry 100 99 Oxygen Delivery Method Room Air Room Air BMI result Body Mass Index 30.3 Appearance: Alert. Oriented X3. No acute distress. Eyes: Pupils equal, round and reactive to light. ENT: Pharynx normal. Neck: Normal inspection. Neck supple. No lymph nodes noted. No crepitus CVS: Normal heart rate and rhythm. Pulses normal. Normal S1 and S2 Respiratory: No respiratory distress. Breath sounds normal. No Wheezing. No rales Abdomen: the colostomy bag is in place. The midline scar looks red swollen. Warm to touch. In the inferior aspect seems to be draining sanguinous fluid. The abdomen is nontender. Skin: Skin warm and dry. Normal skin color. Normal skin turgor. Extremities: No lower extremity edema. Neurovascular intact to all extremities. No Lacerations. No Rash Neuro: Oriented X 3. No motor deficit. No sensory deficit. Moving all extermities. No slurred speech Medical Decision Making Medical Decision Making MDM Narrative: 13:52 Patient did not have a fever but the wound looks grossly infected. Cultures obtained lactate ordered. Patient's case consulted by Dr. Spangler emergently. patient is seen by Dr. Spangler. Agree with plan of antibiotics and admission. Currently in stable condition. Patient's white count is 14. Electrolytes unremarkable. [place] it was more an infected wound. A seroma that was draining. Patient to be admitted Differential Diagnosis Differential Diagnoses: The differential diagnosis associated with the presentation includes cellulitis versus abscess versus seroma draining Admission/Observation Consideration of admission/observation: Escalation of care including admission/observation considered will admit for further evaluation Consult Healthcare Provider Management of the patient was discussed with: Power Press Supervisor ( surgery) Lab Data MDM Lab Attestation statement: I reviewed the patient's lab results. 08/24/24 12:06 08/24/24 12:06 Labs: Lab Results 08/24/24 08/24/24 Range/Units 12:06 13:42 WBC 13.8 H (4.8-10.8) X10*3/uL RBC 3.33 L (4.20-5.50) X10*6/uL Hgb 9.4 L (12.0-16.0) g/dl Hct 29.1 L (37.0-47.0) % MCV 87.4 (80.0-98.0) fL MCH 28.2 (27.0-33.0) pg MCHC 32.3 (31.0-35.0) g/dl RDW 13.1 (11.0-16.0) % Plt Count 482 H D (160-400) X10*3/uL MPV 8.2 L (9.4-12.3) fL Immature Gran % (Auto) 1.5 H (0.0-0.4) % Neut % (Auto) 71.6 (45-73) % Lymph % (Auto) 16.2 L (20-40) % [place] % (Auto) 6.7 (2-11) % Eos % (Auto) 3.7 (0-4) % Baso % (Auto) 0.3 (0-2) % Lymph # (Auto) 2.2 (1.2-4.9) X10*3/uL [place] # (Auto) 0.9 (0.1-1.2) X10*3/uL Eos # (Auto) 0.5 H (0.0-0.4) X10*3/uL Baso # (Auto) 0.0 (0.0-0.2) X10*3/uL Abs Immat Gran (auto) 0.21 H (0.00-0.03) X10*3/uL Absolute Neuts (auto) 9.9 H (2.0-8.3) x10*3/uL Absolute Nucleated RBC 0.000 (0.0-0.012) X10*3/uL Nucleated RBC % (auto) 0.0 (0.0-0.2) /100WBC ESR 109 H (0-20) MM/HR Sodium 140 (135-145) mmol/L Potassium 4.0 (3.3-5.1) mmol/L Chloride 107 (96-108) mmol/L Carbon Dioxide 26 (22-29) mmol/L Anion Gap 11 L (12-20) BUN 11 (9-16) mg/dL Creatinine 0.65 (0.5-1.4) mg/dL Estim Creat Clear Calc 88.4 Estimated GFR > 60 Random Glucose 108 (60-115) mg/dL Lactic Acid 2.0 (0.5-2.0) mmol/L Calcium 9.8 (8.4-10.2) mg/dL Magnesium 2.0 (1.6-2.6) mg/dL Total Bilirubin 0.3 (0.0-1.0) mg/dL AST 28 (5-31) U/L ALT 22 (0-31) U/L Alkaline Phosphatase 120 H (39-117) U/L C-Reactive Protein 10.28 H (< or = 0.50) mg/dL Total Protein 7.0 (6.5-8.0) g/dL Albumin 3.5 (3.5-5.0) g/dL Independent Historian Clinical information obtained from an independent historian. History obtained from or confirmed by: Spouse External Record Review External record reviewed: Inpatient record Chronic Conditions history of diverticulitis Medications Administered Generic Name Dose Route Start Last Admin Trade Name Freq PRN Reason Stop Dose Admin Sodium Chloride 1,000 mls @ 999 mls/hr 08/24/24 13:58 08/24/24 14:00 Ns IV 08/24/24 14:58 999 mls/hr .Q1H1M STA Administration Discontinued Medications Generic Name Dose Route Start Last Admin Trade Name Freq PRN Reason Stop Dose Admin Hydromorphone HCl 0.5 mg 08/24/24 13:47 08/24/24 13:53 Hydromorphone Hcl 0.5 Mg/0.5 Ml Syringe IVPUSH 08/24/24 13:48 0.5 mg ONCE ONE Administration Protocol Piperacillin Sod/Tazobactam 100 mls @ 200 mls/hr 08/24/24 13:27 08/24/24 14:21 Sod 4.5 gm/ Sodium Chloride IV 08/24/24 13:56 Infused ONCE ONE Infusion Ondansetron HCl 4 mg 08/24/24 13:47 08/24/24 13:54 Ondansetron Hcl 4 Mg/2 Ml Vial IVPUSH 08/24/24 13:48 4 mg ONCE ONE Administration Discharge Plan Discharge Clinical Impression: Infected wound Patient Disposition: Admitted As Inpatient Prescriptions: No Action losartan 100 mg tablet 100 mg PO BEDTIME omeprazole 20 mg Capsule,Delayed Release(Dr/Ec) 20 mg PO DAILY oxycodone 5 mg tablet 5 mg PO Q4H PRN (Reason: pain (scale score 7-10)) Qty: 26 0RF Rx Instructions: Partial Fill upon patient request. simvastatin 20 mg tablet 20 mg PO BEDTIME Qty: 90 3RF ondansetron 4 mg tablet,disintegrating 4 mg PO Q8H PRN (Reason: nausea and vomiting) Qty: 20 0RF Print Language: Turkmen
[2024-08-24] MEDS: Piperacillin Sodium/Tazobactam 4.5 GM in 0.9 % Sodium Chloride 100 ML IV (13:51)
[2024-08-24] MEDS: HYDROmorphone HCl 0.5 MG/0.5 ML SYRINGE IVPUSH (13:53)
[2024-08-24] MEDS: ondansetron HCL 4 MG/2 ML VIAL IVPUSH (13:54)
[2024-08-24] MEDS: 0.9 % Sodium Chloride 1,000 ML 999 ML IV (14:00)
--- NOTE | 2024-08-24 14:05 | PC.NURSE ---
Pt's lower abd incision site red/hot to the touch; incision appears well-approximated; drainage appears to be coming from ostomy appliance; surgical team at bedside to evaluate; will assist as needed
--- NOTE | 2024-08-24 14:25 | PM.HPGS ---
History of Present Illness History of Present Illness Date of Service: 08/24/24 Chief complaint: Cellulitis Narrative: Christel Correa is a 59 year old female with PMH of HTN, GERD, hyperlipidemia who is 1 week s/p exploratory laparotomy, enterolysis, sigmoid resection, colorectal anastomosis, diverting loop ileostomy for recurrent diverticulitis. She had an uneventful post operative course and was discharged on Tuesday. She was seen by VNA today and was instructed to go to the ED for evaluation of her incision which had increasing erythema and warmth. Her is at bedside and he reports some yellowish drainage from the wound earlier this week and wound has become increasingly red. She has been tolerating solid food and has had good oral intake. Her ostomy appliance has been functioning well with soft brown output and her appliance was changed today. She denies fevers, chills. Review of Systems Review of Systems: Yes all other systems are reviewed and are negative PMFSH Past Medical History Medical History Habitual snoring Dysuria Diverticulitis large intestine w/o perforation or abscess w/o bleeding Hypokalemia Anemia Impaired glucose tolerance Acute allergic reaction Fatty liver Irritable bowel syndrome Hypertension History of renal calculi Hypercholesterolemia GERD (gastroesophageal reflux disease) Obesity (BMI 30-39.9) Family History Family History Father Brain tumor Mother Hypertension CVD (cardiovascular disease) Surgical History Surgical History Hx of section History of diverticulitis Hx of colonoscopy History of esophagogastroduodenoscopy (EGD) Hx of arthroscopy of left knee Hx of arthroscopy of right knee History of lithotripsy Hx of appendectomy H/O tubal ligation History of abdominal hysterectomy Social History Social History Household Members: Spouse Household Members Other:: at bedside Housing: House Are you a primary medicare interviewer to a significant other at home: No Do you presently have visiting nurse or other home services: No Alcohol intake: never Comment: COUNTS CORRECT Patient Tobacco Use Status: Never used Tobacco e-Cigarette/Vaping Use: Never Used Second Hand Smoke Exposure: No Substance Use Type: Sedatives Advance Directives: No Advance Directives Information Provided: No service: No Current occupational status: employed Current occupational exposures/hazards: No Cognitive needs: No Hearing needs: No Vision needs: Yes Meds Allergies Allergy/AdvReac Type Severity Reaction Status Date / Time lisinopril AdvReac Intermediate Cough Verified 08/24/24 11:37 Active Medications: Current Medications Acetaminophen (Acetaminophen 325 Mg Tablet) 650 mg PO Q6H PRN PRN Reason: Pain, Mild 1-3,fever,headache Calcium Carbonate (Calcium Carbonate 750 Mg Tab.Chew) 750 mg PO Q4H PRN PRN Reason: Heartburn Sodium Chloride (Ns) 1,000 mls @ 999 mls/hr IV .Q1H1M STA Stop: 08/24/24 14:58 Last Admin: 08/24/24 14:00 Dose: 999 mls/hr Magnesium Hydroxide (Milk Of Magnesia 30 Ml Oral.Susp) 30 ml PO DAILY PRN PRN Reason: Constipation Melatonin (Melatonin 3 Mg Tablet) 6 mg PO BEDTIME PRN PRN Reason: Insomnia Sodium Chloride (0.9 % Sodium Chloride Flush 3 Ml Syringe) [facility]ations ?Medication ?Instructions ?Recorded ?Confirmed ?Last Taken ?Type losartan 100 mg tablet 100 mg PO BEDTIME 06/26/24 08/21/24 08/15/24 History dicyclomine 10 mg capsule 10 mg PO BID PRN abdominal pain 08/24/24 Unknown History docusate sodium 100 mg capsule 200 mg PO BEDTIME 08/24/24 Unknown History pantoprazole 40 mg tablet,delayed 40 mg PO DAILY@0630 08/24/24 Unknown History release Physical Exam Vital Signs: Vital Signs: Last Vital Signs Temp 98.3 F 08/24/24 13:17 Pulse 98 08/24/24 13:17 Resp 18 08/24/24 13:17 BP 132/71 08/24/24 13:17 Pulse Ox 99 08/24/24 13:17 O2 Del Method Room Air 08/24/24 13:17 BMI result Body Mass Index 30.3 Const: General: no acute distress, alert and anxious Orientation/consciousness: patient oriented x3 Resp: Effort & Inspection: normal respiratory effort GI: Other: midline incision with erythema mostly concentrated to the superior/central aspect of incision- this area was opened sharply with scissors with evacuation of large amount of initially dark drainage appearing like old blood and then more serosanguineous drainage, wound probed with qtip- which extended inferiorly and therefore a larger area was opened to allow for easier packing, fascia felt intact, wound was gently packed with the corner of a fluff, followed by fluffs and tape ostomy slightly edematous, small amt of oozing noted from medial aspect but nothing significant, liquid and solid output Palpation (GI): Soft to palpation, Tenderness to palpation present (GI) (at incision and ostomy ) and no guarding Skin: Other: warm and dry General skin exam: no jaundice Neuro: General: patient oriented x3 and moves all extremities Results Results Labs: Short CBC 08/24/24 Range/Units 12:06 WBC 13.8 H (4.8-10.8) X10*3/uL Hgb 9.4 L (12.0-16.0) g/dl Hct 29.1 L (37.0-47.0) % Plt Count 482 H D (160-400) X10*3/uL BMP 08/24/24 12:06 Sodium 140 Potassium 4.0 Chloride 107 Carbon Dioxide 26 BUN 11 Creatinine 0.65 Calcium 9.8 Liver Function 08/24/24 Range/Units 12:06 Total Bilirubin 0.3 (0.0-1.0) mg/dL AST 28 (5-31) U/L ALT 22 (0-31) U/L Alkaline Phosphatase 120 H (39-117) U/L Albumin 3.5 (3.5-5.0) g/dL Assessment and Plan (1) S/P colon resection: Status: Acute (2) Infected wound: Status: Acute Plan 59 year old female with PMH of HTN, GERD, hyperlipidemia who underwent exploratory laparotomy, enterolysis, sigmoid resection, colorectal anastomosis, diverting loop ileostomy for recurrent diverticulitis with uneventful postoperative course who presents with worsening erythema and warmth from incision. The wound was opened as noted above with large amount of drainage consistent with seroma. Will continue IV zosyn, local wound care. She is overall nontoxic appearing and is hemodynamically stable, labs are ok- has mild leukocytosis but improved. Will admit for observation for the night and if feels improved, can possibly go home tomorrow. Ostomy does have small amount of oozing- likely irritated from appliance change earlier today, will monitor. Patient and are comfortable with plan. Quality Stroke Does the patient have a stroke diagnosis?: No VTE Prior VTE?: No VTE Risk Level:: Surgical - low VTE Device Contraindication: N/A - Device Ordered VTE Drug Contraindication: Treatment Not Indicated Procedures Date of Service Date of Service: 08/24/24
--- NOTE | 2024-08-24 15:25 | PHA.MEDREC ---
Addendum entered by Wilber Andersen marvin 08/24/24 15:36: med rec reviewed Original Note: Pharmacy Consult ? Medication Reconciliation Pharmacy has completed the medication reconciliation. Spoke with patient and she confirmed her medications. Patient confirmed she took her Docusate and Pantoprazole this morning and everything else yesterday.
[2024-08-24] MEDS: Morphine Sulfate 4 MG/ML CARTRIDGE IVPUSH ×2 (16:00→20:44)
[2024-08-24 17:16] VITALS: BP 130/81; PULSE 86; RESP 18; TEMP 36.8; O2SAT 97
--- NOTE | 2024-08-24 17:47 | PC.NURSE ---
Room assigned: 360, medical/surgical unit.
[2024-08-24 18:47] VITALS: BP 151/67; PULSE 90; RESP 18; TEMP 35.8; O2SAT 98
[2024-08-24 19:26] VITALS: RESP 18; TEMP 37.1
[2024-08-24] MEDS: Piperacillin Sodium/Tazobactam 3.375 GM in 0.9 % Sodium Chloride 50 ML IV (19:56)
[2024-08-24] MEDS: 0.9 % Sodium Chloride Flush 3 ML SYRINGE IVFLUSH (20:38)
[2024-08-24 23:05] VITALS: BP 137/61; PULSE 100; RESP 18; TEMP 36.6; O2SAT 98
[2024-08-25] MEDS: Piperacillin Sodium/Tazobactam 3.375 GM in 0.9 % Sodium Chloride 50 ML IV ×4 (01:11→20:29)
[2024-08-25 02:53] VITALS: BP 114/60; PULSE 98; RESP 18; TEMP 36.3; O2SAT 94
[2024-08-25] MEDS: Omeprazole 20 MG CAPSULE.DR PO (05:55)
[2024-08-25 06:51] LABS: MANUAL DIFF FLAG NO
[2024-08-25 07:11] LABS: Basophils Absolute Auto 0.1 X10*3/uL (0.0-0.2); Basophils Percent Auto 0.5 % (0-2); Eosinophils Absolute Auto 0.6 X10*3/uL (0.0-0.4); Eosinophils Percent Auto 5.4 % (0-4); Hematocrit 25.4 % (37.0-47.0); Hemoglobin 8.4 g/dl (12.0-16.0); Imm Gran Abs Auto 0.15 X10*3/uL (0.00-0.03); Imm Gran Pct Auto 1.4 % (0.0-0.4); Lymphocytes Absolute Auto 1.9 X10*3/uL (1.2-4.9); Lymphocytes Percent Auto 17.9 % (20-40); Mean Corpuscular HGB Conc 33.1 g/dl (31.0-35.0); Mean Corpuscular Hemoglobin 28.9 pg (27.0-33.0); Mean Corpuscular Volume 87.3 fL (80.0-98.0); Mean Platelet Volume 8.3 fL (9.4-12.3); Monocytes Absolute Auto 0.9 X10*3/uL (0.1-1.2); Monocytes Percent Auto 7.9 % (2-11); Neutrophils Absolute Auto 7.2 x10*3/uL (2.0-8.3); Neutrophils Percent Auto 66.9 % (45-73); Platelet Count 467 X10*3/uL (160-400); Red Blood Count 2.91 X10*6/uL (4.20-5.50); Red Cell Distribution Width 13.2 % (11.0-16.0); White Blood Count 10.8 X10*3/uL (4.8-10.8)
[2024-08-25 07:19] VITALS: BP 139/76; PULSE 89; RESP 16; TEMP 36.2; O2SAT 95
[2024-08-25] MEDS: 0.9 % Sodium Chloride Flush 3 ML SYRINGE IVFLUSH ×3 (09:05→20:25)
[2024-08-25] MEDS: oxyCODONE HCl Immed Release 5 MG TABLET PO ×3 (09:11→20:33)
--- NOTE | 2024-08-25 10:02 | MHC.CM.PN ---
TEA 08/25/24 DX Post op infection Lives with family, independent. S/P resection w ostomy 08/16/24. Returns with SS incision infection. [facility] providing home services. DP home resume [facility]. Pts spouse will provide transportation home.
[2024-08-25 11:05] VITALS: BP 143/72; PULSE 87; RESP 16; TEMP 36.2; O2SAT 95
--- NOTE | 2024-08-25 15:23 | P.PNGS_ITS ---
Subjective Subjective Date of Service: 08/25/24 Interval history: Patient feeling okay and ostomy working fine midline incision less erythematous she is concerned about going home today with a wound draining Physical Exam 2 Vital Signs: Vital Signs: Last Vital Signs Temp 97.2 F 08/25/24 11:05 Pulse 87 08/25/24 11:05 Resp 16 08/25/24 11:05 BP 143/72 H 08/25/24 11:05 Pulse Ox 95 08/25/24 11:05 O2 Del Method Room Air 08/25/24 11:05 BMI result Body Mass Index 30.3 Const: General: cooperative Skin: Other: Ostomy functioning with good stool output Midline incision has an area that is open with murky drainage. The incision superior to this also with some drainage and with probing and palpation another segment of the skin opens up and there some moderate drainage of murky fluid and some strandy tissue. Area is cleaned and packed with dry gauze Objective Data Active Medications Acetaminophen (Acetaminophen 325 Mg Tablet) 650 mg PO Q6H PRN PRN Reason: Pain, Mild 1-3,fever,headache Calcium Carbonate (Calcium Carbonate 750 Mg Tab.Chew) 750 mg PO Q4H PRN PRN Reason: Heartburn Piperacillin Sod/Tazobactam (Sod 3.375 gm/ Sodium Chloride) 50 mls @ 100 mls/hr IV Q6H [facility] Last Infusion: 08/25/24 14:01 Dose: Infused Documented By: IMAN Magnesium Hydroxide (Milk Of Magnesia 30 Ml Oral.Susp) 30 ml PO DAILY PRN PRN Reason: Constipation Melatonin (Melatonin 3 Mg Tablet) 6 mg PO BEDTIME PRN PRN Reason: Insomnia Morphine Sulfate (Morphine Sulfate 4 Mg/Ml Cartridge) 4 mg IVPUSH Q4H PRN; Protocol PRN Reason: Pain, Severe (Pain Scale 7-10) Last Admin: 08/24/24 20:44 Dose: 4 mg Documented By: CHASITY Omeprazole (Omeprazole 20 Mg Capsule.Dr) 20 mg PO DAILY@0630 [facility] Last Admin: 08/25/24 05:55 Dose: 20 mg Documented By: CHASITY Ondansetron HCl (Ondansetron Hcl 4 Mg/2 Ml Vial) 4 mg IVPUSH Q6H PRN PRN Reason: Nausea and Vomiting Oxycodone HCl (Oxycodone Hcl Immed Release 5 Mg Tablet) 5 mg PO Q4H PRN PRN Reason: Pain, Moderate(Pain Scale 4-6) Last Admin: 08/25/24 14:54 Dose: 5 mg Documented By: IMAN Sodium Chloride (0.9 % Sodium Chloride Flush 3 Ml Syringe) 3 ml IVFLUSH QSHIFT [facility] Last Admin: 08/25/24 14:03 Dose: 3 ml Documented By: IMAN Labs 08/25/24 05:56 08/24/24 12:06 Labs: Laboratory Results - last 24 hr 08/25/24 05:56 MCV 87.3 MCH 28.9 MCHC 33.1 RDW 13.2 Plt Count 467 H MPV 8.3 L Immature Gran % (Auto) 1.4 H Neut % (Auto) 66.9 Lymph % (Auto) 17.9 L [place] % (Auto) 7.9 Eos % (Auto) 5.4 H Baso % (Auto) 0.5 Lymph # (Auto) 1.9 [place] # (Auto) 0.9 Eos # (Auto) 0.6 H Baso # (Auto) 0.1 Abs Immat Gran (auto) 0.15 H Absolute Neuts (auto) 7.2 Absolute Nucleated RBC 0.000 Nucleated RBC % (auto) 0.0 Procedures Date of Service Date of Service: 08/25/24 Progress Note: A&P Assessment and plan (1) Infected wound: Status: Acute Plan Patient is a 59-year-old female who about a week ago underwent sigmoid colectomy with diverting loop ileostomy for diverticulitis and midline incision showing evidence of wound infection. She was sent to the emergency room admitted and part of her incision opened up and packed. Today the more superior aspect also draining and this was opened up and packed as well. Midline area looks less erythematous and overall less warm and tender. Plan to do dressing again tomorrow continue with IV antibiotics and then DC home with p.o. antibiotics. We will get her home with visiting nurses to help with the wound. She understands and agrees with the above plan Time Spent With Patient Time: Total time managing care of this patient today ____ minutes. Quality Stroke Does the patient have a stroke diagnosis?: No VTE Prior VTE?: No VTE Risk Level:: Surgical - low VTE Device Contraindication: N/A - Device Ordered VTE Drug Contraindication: Treatment Not Indicated
[2024-08-25 15:26] VITALS: BP 154/80; PULSE 86; RESP 16; TEMP 36.2; O2SAT 96
[2024-08-25] MEDS: Morphine Sulfate 4 MG/ML CARTRIDGE IVPUSH (16:31)
[2024-08-25 19:31] VITALS: BP 138/71; PULSE 93; RESP 20; TEMP 37.2; O2SAT 94
[2024-08-25 23:09] VITALS: BP 111/59; PULSE 90; RESP 18; TEMP 36.5; O2SAT 96
[2024-08-26] MEDS: Piperacillin Sodium/Tazobactam 3.375 GM in 0.9 % Sodium Chloride 50 ML IV ×2 (01:05→08:16)
[2024-08-26 03:07] VITALS: BP 137/75; PULSE 91; RESP 16; TEMP 36.1; O2SAT 95
[2024-08-26] MEDS: Omeprazole 20 MG CAPSULE.DR PO (05:51)
[2024-08-26 07:25] VITALS: BP 164/83; PULSE 89; RESP 18; TEMP 36; O2SAT 98
[2024-08-26] MEDS: 0.9 % Sodium Chloride Flush 3 ML SYRINGE IVFLUSH (08:17)
[2024-08-26] MEDS: oxyCODONE HCl Immed Release 5 MG TABLET PO (10:43)
[2024-08-26 11:50] VITALS: BP 140/78; PULSE 88; RESP 16; TEMP 36.2; O2SAT 96
--- NOTE | 2024-08-26 15:41 | PM.DS ---
DS: Providers Provider Date of Service: 08/26/24 Date of admission: 08/24/24 14:22 Date of discharge: 08/26/24 Primary care physician: Isaac Field MD Consults: 08/24/24 20:07 Consult to Wound Care Routine Reason for consultation: increase redness to abdominal incision 08/25/24 22:48 Consult to Wound Care Routine Reason for consultation: cellulitis to midline incision Attending physician on discharge: Yvette Martinez Discharging clinician: Yvette Martinez DS: Diagnosis Discharge Diagnosis (1) Infected wound: Start date: 08/24/24 Status: Acute DS: Summary Hospital Course Hospital Course: pt is a 59 year old female who underwent sigmoid colectomy an had diverting loop ilesotomy created. she had vna coming who noted that her incision area was red and warm and there was drainage. She was admitted for wound infection and yesterday a second area opened in midline. - she received iv zosyn and has done well with dressign changes too. Plan to dc home on antibiotics which she already has and packing of the wound aily - i've done today an next will be with dr Spangler in office on Tuesday. VNA can start on Tuesday and was shown dressings today. Pt has to pay for each VNA visit to her house out of pocket. Clinically much improved. Time Attestation Discharge Coordination Time (in mins): 25 Quality: Safe Use of Opioids Does Pt have an Active Cancer Diagnosis on the Problem List?: No Quality: Stroke Does the patient have a stroke diagnosis?: No Physical Exam Vital Signs: Vital Signs: Last Vital Signs Temp 97.1 F 08/26/24 11:50 Pulse 88 08/26/24 11:50 Resp 16 08/26/24 11:50 BP 140/78 H 08/26/24 11:50 Pulse Ox 96 08/26/24 11:50 O2 Del Method Room Air 08/26/24 11:50 BMI result Body Mass Index 30.3 DS: Data Data Completed and Pending Labs on day of discharge: Preliminary micro results at discharge 08/24/24 13:42 Blood Culture - Preliminary Blood - Venous No growth after 24 hours. 08/24/24 13:42 Blood Culture - Preliminary Blood - Venous No growth after 24 hours. Discharge Plan Discharge Patient Disposition: Home Health Service Discharge Diagnosis: seroma and cellulitis Referrals: Isaac Field MD [Primary Care Provider] - 1 Week Oneil Spangler MD [Physician] - 1 Week Discharge Medications: New amoxicillin-pot clavulanate [Augmentin] 500-125 mg tablet 1 tab PO BID Qty: 20 0RF Continued losartan 100 mg tablet 100 mg PO BEDTIME oxycodone 5 mg tablet 5 mg PO Q4H PRN (Reason: pain (scale score 7-10)) Qty: 26 0RF Rx Instructions: Partial Fill upon patient request. pantoprazole 40 mg tablet,delayed release (DR/EC) 40 mg PO DAILY@0630 docusate sodium 100 mg capsule 200 mg PO BID dicyclomine 10 mg capsule 10 mg PO BID PRN (Reason: abdominal pain) simvastatin 20 mg tablet 20 mg PO BEDTIME Qty: 90 3RF ondansetron 4 mg tablet,disintegrating 4 mg PO Q8H PRN (Reason: nausea and vomiting) Qty: 20 0RF Discharge Orders: Discharge Order (Routine); Ordered 08/26/24 Ordered By: Yvette Martinez Diet: Advance to usual diet Activity on Discharge: No heavy lifting Stand Alone Forms: Patient Portal Discharge page Print Language: Estonian Activity Restrictions/Additional Instructions: Ostomy care with VNA along with seroma wound every other day packing changes. May shower Care Plan Goals: cont convalescence Health Concerns: nothing new Plan of Treatment: as noted above Assessment: stable
== END 2024-08-26 15:44 | disposition home health service (06) ==
LOC: HO.ED 14:37 → HO.EDOVER 14:40 → HO.S3 17:18
PROVIDERS: Physician Assistant Medical; Physician Assistant Surgical; Admitting Provider Surgery; Emergency Provider Emergency Medicine Emergency Medical Services; PCP Internal Medicine; Visit Provider Surgery
DX: T81.49XA Infection following a procedure, other surgical site, initial encounter (principal); L03.311 Cellulitis of abdominal wall; B99.8 Other infectious disease; L76.34 Postprocedural seroma of skin and subcutaneous tissue following other procedure; Y83.8 Other surgical procedures as the cause of abnormal reaction of the patient, or of later complication, without mention of misadventure at the time of the procedure; Z90.49 Acquired absence of other specified parts of digestive tract
CPT/HCPCS: 36415; 80053; 83605; 83735; 85025; 85652; 86140; 87040; 96361; 96365; 96366; 96375; 96376; 99221; 99285; J1171; J2270; J2405; J2543

== ENCOUNTER → 2024-08-24 14:22 | Outpatient (BNV) | payer BC, SELFPAY | PROVIDERS: Admitting Provider Surgery; Emergency Provider Emergency Medicine Emergency Medical Services; PCP Internal Medicine; Visit Provider Physician Assistant Surgical | DX: T14.8XXA Other injury of unspecified body region, initial encounter (principal); L08.9 Local infection of the skin and subcutaneous tissue, unspecified; Z90.49 Acquired absence of other specified parts of digestive tract | CPT/HCPCS: 99024; 99231; 99238 ==

== ENCOUNTER 2024-08-28 10:00 | Outpatient (AMB) | payer BC, SELFPAY ==
--- NOTE | 2024-08-28 10:00 | A.OFFVIS_ITS ---
Vital Signs 08/28/24 10:01 Height 5 ft 2 in Weight 164 lb 14.492 oz BMI 30.2 Intake Visit Reasons: S/P sigmoid resection Intake Note: Patient here s/p exploratory laparotomy, enterolysis, sigmoid resection, takedown splenic flexure, transanal colorectal anastomosis, proctosigmoidoscopy. Reports incision healing well. Patient c/o: Surgery: 08-16-2024 Allergies lisinopril Adverse Reaction (Intermediate, Verified 08/28/24 10:04) Cough HPI Comments Details: Patient presents with the follow-up status post recent ER visit for seroma and abdominal wall cellulitis which she states is improving. Ostomy is functioning well. Having issues with ostomy fitting and leaking. [facility] Medical History Habitual snoring Dysuria Diverticulitis large intestine w/o perforation or abscess w/o bleeding Hypokalemia Anemia Impaired glucose tolerance Acute allergic reaction Fatty liver Irritable bowel syndrome Hypertension History of renal calculi Hypercholesterolemia GERD (gastroesophageal reflux disease) Obesity (BMI 30-39.9) Surgical History Hx of section History of diverticulitis Hx of colonoscopy History of esophagogastroduodenoscopy (EGD) Hx of arthroscopy of left knee Hx of arthroscopy of right knee History of lithotripsy Hx of appendectomy H/O tubal ligation History of abdominal hysterectomy Family History Father Brain tumor Mother Hypertension CVD (cardiovascular disease) Social History Household Members: Spouse Household Members Other:: at bedside Housing: House Are you a primary healthcare administrator to a significant other at home: No Do you presently have visiting nurse or other home services: No Alcohol intake: never Comment: COUNTS CORRECT Patient Tobacco Use Status: Never used Tobacco e-Cigarette/Vaping Use: Never Used Second Hand Smoke Exposure: No Substance Use Type: Sedatives service: No Current occupational status: employed Current occupational exposures/hazards: No Cognitive needs: No Hearing needs: No Vision needs: Yes Physical Exam Vital Signs: BMI result Body Mass Index 30.2 GI Other: Abdomen cellulitis completely resolved. Superior aspect of the wound has an area healing by secondary intention. Remaining incision is clean dry and intact healing by 1st intention. Ostomy is functioning. Patient was a rash underneath the ostomy site which will be addressed by [facility] office nurse presently. Assessment & Plan Assessment & Plan (1) S/P colon resection: Comment: exploratory laparotomy, sigmoid resection, transanal colorectal anastomosis, proctosigmoidoscopy, diverting loop ileostomy 08/16/2024 Code(s): Z90.49 - Acquired absence of other specified parts of digestive tract Category: Surgical (2) Postop check: Code(s): Z09 - Encounter for follow-up examination after completed treatment for conditions other than malignant neoplasm Category: Surgical Plan Patient was been given local instructions, we will have [facility]NA services regarding her local wound care, and will see me as directed or p.r.n.. All questions answered. Coding Level of Care Code Global (00929) Diagnoses S/P colon resection Z90.49 Postop check Z09
[2024-08-28 10:01] VITALS: BMI 30.2
== END 2024-08-28 10:19 | disposition home or self-care (01) ==
LOC: HO.HGS 10:00
PROVIDERS: PCP Internal Medicine; Visit Provider Surgery
DX: Z90.49 Acquired absence of other specified parts of digestive tract (principal); Z09 Encounter for follow-up examination after completed treatment for conditions other than malignant neoplasm
CPT/HCPCS: 99024

== ENCOUNTER → 2024-08-28 10:00 | Outpatient (BNVA) | payer BC, SELFPAY | PROVIDERS: PCP Internal Medicine; Visit Provider Surgery ==

== ENCOUNTER → 2024-09-03 13:34 | Outpatient (BNVA) | payer BC, SELFPAY | PROVIDERS: PCP Internal Medicine; Visit Provider Surgery | DX: Z43.2 Encounter for attention to ileostomy (principal) | CPT/HCPCS: 99211 ==

== ENCOUNTER 2024-09-06 09:25 | Outpatient (AMB) | payer BC, SELFPAY ==
[2024-09-06 09:28] VITALS: BP 126/80; PULSE 99; O2SAT 99; BMI 29.3
--- NOTE | 2024-09-06 09:28 | MHC.PC.OV ---
Vital Signs 09/06/24 09:28 Height 5 ft 2 in Weight 160 lb 2 oz BMI 29.3 BP 126/80 Blood Pressure Location Lt brachial Position Sitting Pulse 99 Pulse Source Pulse Oximeter Pulse Oximetry (%) 99 Oxygen Delivery Method Room Air Intake Visit Reasons: [facility] 08/26 cellulitis Assistant Account Manager Required: No Accompanied by: Self / Same As Patient Allergies lisinopril Adverse Reaction (Intermediate, Verified 09/06/24 09:51) Cough Medication List - Last Reconciled 09/06/24 by Danielle Pace PA-C amoxicillin-pot clavulanate 500-125 mg (Augmentin) 1 tab PO BID dicyclomine 10 mg PO BID PRN docusate sodium 200 mg PO BID losartan 100 mg PO BEDTIME ondansetron 4 mg PO Q8H PRN oxycodone 5 mg PO Q4H PRN pantoprazole 40 mg PO DAILY@0630 simvastatin 20 mg PO BEDTIME Tobacco use date assessed: 09/06/24 Dental Screening Dental Screen Date: 09/06/24 Did you have a dental visit in the last 12 months?: Yes Did you have a dental problem in the last 6 months where you did not have access to dental care?: No Was dental information given to patient?: Patient has dentist HPI [facility] 08/26 cellulitis HPI Details 59-year-old female with past medical history of GERD, hypercholesterolemia, hypertension, vitamin-D deficiency, diabetes mellitus, hyperparathyroidism last seen 05/2024 coming in for [facility]. In review of the notes, patient was seen in [facility] for 08/24/2024 after undergoing sigmoid colectomy.?Patient had VNA services who noted possible cellulitis around the incision patient was admitted for wound infection received IV Zosyn and patient was stabilized and discharged home on 08/26/2024. She was seen by General surgery 08/28/2024 advised to follow up with VNA for wound care and follow up with General surgery as needed. Presenting with a hospital discharge follow-up after undergoing a sigmoid resection consequent to diverticulosis with perforation. Post-discharge, she received VNA services for wound care, which continues twice weekly. The postoperative period involved an ER visit due to wound infection, now resolved with antibiotics. She reports ongoing abdominal pain in the surgical area, variably associated with movement. Concerns regarding ostomy bag management persist, particularly with the frequent need for changes due to adhesive issues, causing significant disturbance to sleep. Dietary intake has resumed with a normal diet, although food and fluid intake is minimal. She denies fever and blood in ostomy output. TCM TCM Information Date of Discharge 08/26/24 Discharged From [facility] Interactive Contact Date (Reference documentation from this date) 08/27/24 [facility] Medical History Habitual snoring Dysuria Diverticulitis large intestine w/o perforation or abscess w/o bleeding Hypokalemia Anemia Impaired glucose tolerance Acute allergic reaction Fatty liver Irritable bowel syndrome Hypertension History of renal calculi Hypercholesterolemia GERD (gastroesophageal reflux disease) Obesity (BMI 30-39.9) Surgical History Hx of section History of diverticulitis Hx of colonoscopy History of esophagogastroduodenoscopy (EGD) Hx of arthroscopy of left knee Hx of arthroscopy of right knee History of lithotripsy Hx of appendectomy H/O tubal ligation History of abdominal hysterectomy Family History Father Brain tumor Mother Hypertension CVD (cardiovascular disease) Social History Household Members: Spouse Household Members Other:: at bedside Housing: House Are you a primary child care specialist to a significant other at home: No Do you presently have visiting nurse or other home services: No Alcohol intake: never Comment: COUNTS CORRECT Patient Tobacco Use Status: Never used Tobacco e-Cigarette/Vaping Use: Never Used Second Hand Smoke Exposure: No Substance Use Type: Sedatives service: No Current occupational status: employed Current occupational exposures/hazards: No Cognitive needs: No Hearing needs: No Vision needs: Yes Questionnaire PHQ-9 Over the last 2 weeks, how often have you been bothered by any of the following problems? 1. Little interest or pleasure in doing things: not at all 2. Feeling down, depressed, or hopeless: not at all 3. Trouble falling or staying asleep, or sleeping too much: not at all 4. Feeling tired or having little energy: not at all 5. Poor appetite or overeating: not at all 6. Feeling bad about yourself - or that you are a failure or have let yourself or your family down: not at all 7. Trouble concentrating on things, such as reading the newspaper or watching television: not at all 8. Moving or speaking so slowly that other people could have noticed. Or the opposite - being so fidgety or restless that you have been moving around a lot more than usual: not at all 9. Thoughts that you would be better off or of hurting yourself in some way: not at all Total score: 0 Depression Screening Interpretation: Negative Depression Screening Done: Yes 70211 - PHQ-9 Billing: Yes Source: Developed by Drs. Alan Pang, Kay Garza, Jesús Berger and colleagues, with an educational tejas from [employer]. Thrive Questionnaire Date Thrive assessed: 09/06/24 I am a: Patient What is your living situation today?: I have a steady place to live Within the past 12 months, did the food you bought not last and you didn't have the money to get more?: Never true Within the past 12 months, did you worry whether your food would run out before you got money to buy more?: Never true Do you have trouble paying for medicines?: No Do you have trouble getting transportation to medical appointments?: No Do you have trouble paying your heating and electricity bill?: No Do you have trouble taking care of your child, family member or friend?: No Do you have trouble with day-to-day activities such as bathing, preparing meals, shopping, managing finances, etc.?: No Are you currently unemployed and looking for a job?: No Are you interested in more education?: No Please select the resources that you would like help with: None Currently or been in a relationship where the following occur: No concerns reported THRIVE Score: 0 AUDIT C Alcohol Use Questionnaire (AUDIT-C) 1. How often do you have a drink containing alcohol?: Never 3. How often do you have six or more drinks on one occasion?: Never Total Score: 0 Score Reviewed/Action Taken: No JENNIFER-7 AMB Questionnaire JENNIFER-7 Date JENNIFER - 7 assessed: 09/06/24 Feeling nervous, anxious, or on edge: 0 = Not at all Not being able to stop or control worryin = Not at all Worrying too much about different things: 0 = Not at all Trouble relaxin = Not at all Being so restless that it is hard to sit still: 0 = Not at all Becoming easily annoyed or irritable: 0 = Not at all Feeling afraid as if something awful might happen: 0 = Not at all Total JENNIFER-7 score (0-4 normal; 5-9 mild; 10-14 moderate; 15-21 severe): 0 Source: Developed by Drs. Alan Pang, Kay Garza, Jesús Berger and colleagues, with an educational tejas from [employer]. JENNIFER-7 Assessment Billing JENNIFER-7 Assessment Tool: JENNIFER-7 Assessment 04800 Review of Systems Const Denies body aches, Denies chills, Denies fever(s), Denies headache(s) and Denies poor appetite Eyes Reports no additional complaints ENT Denies dysphagia, Denies dizziness, Denies headache(s) and Denies odynophagia Card Denies chest pain, Denies syncope, Denies edema, Denies irregular heart rhythm, Denies lightheadedness and Denies dyspnea Resp Denies cough and Denies dyspnea GI Denies abdominal pain, Denies constipation, Denies dysphagia, Denies diarrhea, Denies nausea, Denies odynophagia and Denies vomiting Reports no additional complaints Musc Reports no additional complaints and Denies abnormal gait Skin/Breast Reports system reviewed and no additional complaints, except as documented Neuro Denies abnormal gait, Denies dizziness, Denies syncope and Denies headache(s) Psych Reports no additional complaints Physical exam (Primary Care) Vital Signs: Last Vital Signs Pulse 99 09/06/24 09:28 BP 126/80 09/06/24 09:28 Pulse Ox 99 09/06/24 09:28 Oxygen Delivery Method Room Air 09/06/24 09:28 BMI result Body Mass Index 29.3 Tobacco/Smoking Status: Tobacco use Status Tobacco use date assessed 09/06/24 09/06/24 09:35 Patient Tobacco Use Status Never used Tobacco 09/06/24 09:35 e-Cigarette/Vaping Use Never Used 09/06/24 09:35 PHQ-9: PHQ-9 Score PHQ-9: Total score 0 09/06/24 09:55 Depression Screening Interpretation: Negative Thrive Assessment: Date of Thrive Assessment Date Thrive assessed 09/06/24 09/06/24 09:35 Currently or been in a relationship where the following occur: No concerns reported Const General: cooperative, healthy appearing, comfortable and no acute distress Orientation/consciousness: patient oriented x3 [facility] Head: Yes normocephalic Ears: hearing grossly normal bilaterally General nose exam: Normal external nose present Eyes General: appearance normal, both eyes and all related structures Conjunctivae: conjunctivae normal Neck Neck: Yes full ROM and Yes no lymphadenopathy Resp Effort & Inspection: normal respiratory effort Auscultation: clear to auscultation bilaterally, no crackles, no rales, no rhonchi and no wheezes Cardio Rate: regular rate Rhythm: regular rhythm GI Other: colostomy in place with good output. incision site without evidence of infection - no erythema, warmth or purulent drainage. packing in place Skin General skin exam: no rashes or lesions noted Neuro General: patient oriented x3 Gait exam (Neuro): Normal gait present Extrem General: Yes normal to inspection, Yes full ROM and No edema Psych Affect: normal affect Attitude: cooperative Insight: Good insight present (Psych) Judgement: Good judgement present (Psych) Coding Level of Care Code TCM Mod MDM <= 14 Days Complex EM visit Add On G2211 Diagnoses S/P colon resection Z90.49 Primary hypertension I10 Hypertension type: primary hypertension Additional Codes JENNIFER-7 Assessment Billing - JENNIFER-7 Assessment Tool: JENNIFER-7 Assessment [id number] ([id number]) PHQ-9 - 70833 - PHQ-9 Billing: Yes ([id number]) Assessment & Plan Assessment & Plan (1) S/P colon resection: Comment: exploratory laparotomy, sigmoid resection, transanal colorectal anastomosis, proctosigmoidoscopy, diverting loop ileostomy 08/16/2024 Code(s): Z90.49 - Acquired absence of other specified parts of digestive tract Category: Surgical Plan: Patient has been having VNA services twice weekly to monitor the incision site previously infected. On exam today there is no erythema surrounding her wound and no purulent drainage noted on exam. Continue to follow with regular dressing changes. She has a appointment with General surgery next week to follow up as well. Discussed with patient red flag symptoms and when to present for re-evaluation. Also encouraged plenty of fluid intake as she is having expected watery output in the ostomy and stressed the importance of avoiding dehydration. (2) Hypertension: Code(s): I10 - Essential (primary) hypertension Category: Medical Qualifiers: Hypertension type: primary hypertension Qualified Code(s): I10 - Essential (primary) hypertension Plan: Continue on current blood pressure medication. Avoid salt intake and encourage healthy diet and regular exercise. Plan This note was constructed using voice recognition software. While every effort has been made to ensure accuracy and intake clinician, still areas may have been included sometimes these areas may affect the content or meeting of the given symptoms. Total time spent caring for the patient today was 20 minutes. This includes time spent before the visit reviewing the chart, time spent during the visit, and time spent after the visit and documentation. Patient was informed and verbally consented to the use of an ambient scribe for clinic note documentation during this visit. Medications: Discontinued amoxicillin-pot clavulanate 500-125 mg (Augmentin) Discontinued Reason: Patient Completed Course 1 tab PO BID 20 tabs 0RF
== END 2024-09-06 10:28 | disposition home or self-care (01) ==
LOC: HO.HMCH 09:25
PROVIDERS: PCP Internal Medicine
DX: I10 Essential (primary) hypertension (principal); Z90.49 Acquired absence of other specified parts of digestive tract

== ENCOUNTER → 2024-09-06 09:25 | Outpatient (BNVA) | payer BC, SELFPAY | PROVIDERS: PCP Internal Medicine | DX: I10 Essential (primary) hypertension (principal); K21.9 Gastro-esophageal reflux disease without esophagitis; E78.00 Pure hypercholesterolemia, unspecified; E55.9 Vitamin D deficiency, unspecified; E11.9 Type 2 diabetes mellitus without complications; E21.3 Hyperparathyroidism, unspecified; Z98.890 Other specified postprocedural states; Z90.49 Acquired absence of other specified parts of digestive tract | CPT/HCPCS: 96127 ==

== ENCOUNTER 2024-09-11 10:11 | Outpatient (AMB) | payer BC, SELFPAY ==
--- NOTE | 2024-09-11 10:15 | MHC.OFFVIS ---
Vital Signs 09/11/24 10:28 Height 5 ft 2 in Weight 164 lb BMI 30.0 BP 153/79 H Blood Pressure Location Rt brachial Position Sitting Pulse 89 Intake Visit Reasons: S/P sigmoid resection Intake Note: Patient here s/p exploratory laparotomy, enterolysis, sigmoid resection, takedown splenic flexure, transanal colorectal anastomosis, proctosigmoidoscopy. Reports incision healing well. Patient c/o: concerns with colostomy filling up too fast. Area gets Irritated with adhesive. Abdominal incision tender to touch. Worried about work. Per [facility] paperwork is due to return on 09-17-24. Light duty is not available at work. Surgery: 08-16-2024 Ocean Export Coordinator Required: No Allergies lisinopril Adverse Reaction (Intermediate, Verified 09/06/24 09:51) Cough HPI Comments Details: Patient presents with her for follow-up. All things considered she is doing well. Her incisional seroma his healing uneventfully. Ileostomy is functioning well. She is tolerating diet. She is slowly but steadily increasing her activity level. [facility] Medical History Habitual snoring Dysuria Diverticulitis large intestine w/o perforation or abscess w/o bleeding Hypokalemia Anemia Impaired glucose tolerance Acute allergic reaction Fatty liver Irritable bowel syndrome Hypertension History of renal calculi Hypercholesterolemia GERD (gastroesophageal reflux disease) Obesity (BMI 30-39.9) Surgical History Hx of section History of diverticulitis Hx of colonoscopy History of esophagogastroduodenoscopy (EGD) Hx of arthroscopy of left knee Hx of arthroscopy of right knee History of lithotripsy Hx of appendectomy H/O tubal ligation History of abdominal hysterectomy Family History Father Brain tumor Mother Hypertension CVD (cardiovascular disease) Social History Household Members: Spouse Household Members Other:: at bedside Housing: House Are you a primary healthcare specialist to a significant other at home: No Do you presently have visiting nurse or other home services: No Alcohol intake: never Comment: COUNTS CORRECT Patient Tobacco Use Status: Never used Tobacco e-Cigarette/Vaping Use: Never Used Second Hand Smoke Exposure: No Substance Use Type: Sedatives service: No Current occupational status: employed Current occupational exposures/hazards: No Cognitive needs: No Hearing needs: No Vision needs: Yes Physical Exam Vital Signs: Last Vital Signs Pulse 89 09/11/24 10:28 BP 153/79 H 09/11/24 10:28 BMI result Body Mass Index 30.0 GI Other: Abdomen is soft. Ileostomy functioning well. Midline incision upper portion is healing an area of seroma. Remainder of the incision has good 1st intention healing Assessment & Plan Assessment & Plan (1) Encounter for postoperative wound check: Code(s): Z48.89 - Encounter for other specified surgical aftercare Category: Surgical (2) S/P colon resection: Comment: exploratory laparotomy, sigmoid resection, transanal colorectal anastomosis, proctosigmoidoscopy, diverting loop ileostomy 08/16/2024 Code(s): Z90.49 - Acquired absence of other specified parts of digestive tract Category: Surgical Plan Patient is to continue current plan. She will see me in 3 weeks time and barring any setbacks, at that visit arrangements were made for barium/Gastrografin enema to come firm anastomotic healing and then if this is good, arrangements were made for ileostomy reversal Coding Level of Care Code Global (66160) Diagnoses Encounter for postoperative wound check Z48.89 S/P colon resection Z90.49
[2024-09-11 10:28] VITALS: BP 153/79; PULSE 89
== END 2024-09-11 10:30 | disposition home or self-care (01) ==
PROVIDERS: PCP Internal Medicine; Visit Provider Surgery
DX: Z48.89 Encounter for other specified surgical aftercare (principal); Z90.49 Acquired absence of other specified parts of digestive tract
CPT/HCPCS: 99024

== ENCOUNTER → 2024-09-11 10:11 | Outpatient (BNVA) | payer BC, SELFPAY | PROVIDERS: PCP Internal Medicine; Visit Provider Surgery | DX: Z90.49 Acquired absence of other specified parts of digestive tract (principal); Z09 Encounter for follow-up examination after completed treatment for conditions other than malignant neoplasm ==

== ENCOUNTER 2024-10-02 09:19 | Outpatient (AMB) | payer BC, SELFPAY ==
--- NOTE | 2024-10-02 09:20 | A.OFFVIS_ITS ---
Vital Signs 10/02/24 09:27 Height 5 ft 2 in Weight 162 lb BMI 29.6 BP 161/80 H Blood Pressure Location Rt brachial Position Sitting Pulse 73 Intake Visit Reasons: Dr. Spangler~ s/p sigmoid resection Intake Note: Patient last seen by Dr. Spangler on 09-11-2024. Patient here s/p sigmoid resection. Surgery: 08-16-2024 Reports ostomy working well. Patient c/o: no concerns. Not ready to go back to working as light duty is not available. Staff Genetic Counselor Required: No Allergies lisinopril Adverse Reaction (Intermediate, Verified 10/02/24 09:26) Cough Medication List - Last Reviewed 10/02/24 by SURESH Dorantes dicyclomine 10 mg PO BID PRN docusate sodium 200 mg PO BID losartan 100 mg PO BEDTIME ondansetron 4 mg PO Q8H PRN oxycodone 5 mg PO Q4H PRN pantoprazole 40 mg PO DAILY@0630 simvastatin 20 mg PO BEDTIME HPI HPI Dr. Spangler~ s/p sigmoid resection: Details: She is here for follow-up after sigmoid resection, reanastomosis and a diverting loop ileostomy with Dr. Spangler last July, She says she is doing well. She denies any problems with her ileostomy. She had open wound on her midline incision but this seems to have healed. [facility] Medical History (Updated 10/02/24 @ 09:35 by Piotr Ash MD) Ileostomy in place Habitual snoring Dysuria Diverticulitis large intestine w/o perforation or abscess w/o bleeding Hypokalemia Anemia Impaired glucose tolerance Acute allergic reaction Fatty liver Irritable bowel syndrome Hypertension History of renal calculi Hypercholesterolemia GERD (gastroesophageal reflux disease) Obesity (BMI 30-39.9) Surgical History Hx of section History of diverticulitis Hx of colonoscopy History of esophagogastroduodenoscopy (EGD) Hx of arthroscopy of left knee Hx of arthroscopy of right knee History of lithotripsy Hx of appendectomy H/O tubal ligation History of abdominal hysterectomy Family History Father Brain tumor Mother Hypertension CVD (cardiovascular disease) Social History Household Members: Spouse Household Members Other:: at bedside Housing: House Are you a primary healthcare consulting manager to a significant other at home: No Do you presently have visiting nurse or other home services: No Alcohol intake: never Comment: COUNTS CORRECT Patient Tobacco Use Status: Never used Tobacco e-Cigarette/Vaping Use: Never Used Second Hand Smoke Exposure: No Substance Use Type: Sedatives service: No Current occupational status: employed Current occupational exposures/hazards: No Cognitive needs: No Hearing needs: No Vision needs: Yes Review of Systems Const Denies chills and Denies fever(s) Card Denies chest pain Resp Denies cough GI Details: Ileostomy functioning well Denies abdominal pain Physical Exam Const General: comfortable and no acute distress Resp Effort & Inspection: normal respiratory effort Cardio Rate: regular rate GI Other: Ileostomy good with good output, incision well healed, no residual open wound Palpation (GI): Soft to palpation, not firm and nontender Assessment & Plan Assessment & Plan (1) Ileostomy in place: Code(s): Z93.2 - Ileostomy status Category: Medical Plan: She seems to be doing well after sigmoid resection and diverting loop ileostomy done by Dr. Spangler last July,. I will therefore an enema study to check her anastomosis. This is patent and intact, we will schedule her for reversal of the loop ileostomy I will see her in the office after the enema study. She understands the plan well. Coding Level of Care Code Est Pt Level 3 (62390) Diagnoses Ileostomy in place Z93.2
[2024-10-02 09:27] VITALS: BP 161/80; PULSE 73; BMI 29.6
== END 2024-10-02 09:36 | disposition home or self-care (01) ==
LOC: HO.HGS 09:19
PROVIDERS: PCP Internal Medicine; Visit Provider Surgery
DX: Z93.2 Ileostomy status (principal)
CPT/HCPCS: 99024

== ENCOUNTER 2024-10-24 10:54 | Outpatient (REF) | payer BC, SELFPAY ==
--- NOTE | ~2024-10-24 | FL_ITS ---
EXAMINATION: XR BARIUM ENEMA CLINICAL INFORMATION: Patient has ileostomy. Check colon to the ileostomy back for reversal of colostomy. COMPARISON: None available. TECHNIQUE: Single KUB was obtained. Subsequently a balloon inflated rectal catheter was inserted. Thick barium contrast was introduced retrogradely intravenous the colon to the cecum. Postevacuation images of the abdomen were obtained. FINDINGS: On KUB there a few scattered phleboliths in pelvis. There is mild scattered stool in the colon. There is no organomegaly. No gross bony abnormality. There is solitary staple in the left upper quadrant. The entire colon was visualized with no evidence of narrowing , diverticuli or stricture. Contrast extended all the way to the cecum and IC junction. There is reflux of contrast through the terminal ileum into the colostomy bag on postevacuation images. FLUOROSCOPY TIME: 56 seconds DOSE AREA PRODUCT: [id number] uGy-m2 (microgray-meter squared) FL/FL barium enema IMPRESSION: Widely patent colon following retrograde barium administration. The contrast extends all the way to the cecum and ileocecal valve with reflux into the ileostomy bag on postevacuation images. Electronically signed by: Chandler Campo MD 10/24/2024 01:29 PM EDT
== END 2024-10-24 10:55 | disposition home or self-care (01) ==
LOC: HO.XRAY 10:54
PROVIDERS: PCP Internal Medicine; Visit Provider Surgery
DX: Z93.2 Ileostomy status (principal)
CPT/HCPCS: 74270

== ENCOUNTER → 2024-10-24 10:56 | Outpatient (BNV) | payer BC, SELFPAY | PROVIDERS: PCP Internal Medicine; Visit Provider Radiology Diagnostic Radiology | DX: Z93.2 Ileostomy status (principal) | CPT/HCPCS: 74270 ==

== ENCOUNTER 2024-10-29 14:06 | Outpatient (AMB) | payer BC, SELFPAY ==
--- NOTE | 2024-10-29 14:41 | MHC.OFFVIS ---
Intake Visit Reasons: PVR (Botox)/ follow up Intake Note: Patient is present for PVR (Botox) follow up Urology Medication:NONE Antibiotic Allergy:NONE Blood Thinner:NONE PVR:0ml Parole Agent Required: No Allergies lisinopril Adverse Reaction (Intermediate, Verified 10/29/24 14:41) Cough Medication List - Last Reconciled 10/29/24 by Hector Hays MD dicyclomine 10 mg PO BID PRN docusate sodium 200 mg PO BID losartan 100 mg PO BEDTIME ondansetron 4 mg PO Q8H PRN oxycodone 5 mg PO Q4H PRN pantoprazole 40 mg PO DAILY@0630 simvastatin 20 mg PO BEDTIME HPI Comments Details: 10/29/24-- History of Present Illness - The patient is a 59-year-old female presenting with symptoms of overactive bladder. - She has received bladder Botox injections, with the last one administered on May 15, 2024, which helped reduce urinary frequency and urgency. - Following the Botox, she underwent sigmoid resection and loop ileostomy for diverticular disease, with potential future evaluation for ileostomy reversal. - The urinalysis indicated no current infection, but microscopic hematuria was observed. - A renal ultrasound has been planned due to her history of kidney stones. Urinary Symptoms Review - Past administration of bladder Botox injections was effective in reducing urinary frequency and urgency. - No current signs of urinary infection, as indicated by recent negative urinalysis for leukocytes and presence of only 1+ blood. - Microscopic hematuria is noted but consistent with past results. Results - Labs: - Urinalysis: Leukocytes negative, Blood 1+. - Tests and Diagnostics: - Bladder Scan: Post-Void Residual (PVR) is 0 mL. Discussion Notes I discussed with the patient the continued management of her overactive bladder symptoms. The benefits of bladder Botox injections in maintaining better urinary control were acknowledged, though we discussed that the effects are temporary and typically diminish over a span of months. Given the patient's upcoming potential surgery for ileostomy reversal with Dr. Ash, we agreed to defer any immediate decision on repeat Botox injections. I recommended scheduling a renal ultrasound to assess kidney health, given the patient's history of kidney stones, and instructed the patient that radiology will communicate with her regarding the appointment. We discussed continuing monitoring and planned a follow-up call in four months to reassess her condition post-surgery and adaptation. Plan - monitor kidneys, history of kidney stones we will check a renal ultrasound - Reassess overactive bladder treatment, including the potential repeat of Botox injections., she is currently being evaluated by General surgery due to her diverticular disease status post sigmoid resection and ileal loop ostomy for possible ileostomy reversal. Patient Instructions Patient was informed and verbally consented to the use of an ambient scribe for clinic note documentation during this visit. 06/07/24---s/p cysto hydro 05/15/24--- bladder capacity 500 mL, Discussed findings c/w with subaverage capacity expected under anesthesia. Pt states her urinary symptoms have improved. She states she had other w/u and has diverticular inflammation and it is pressing on the bladder. No evidence of fistula. Surgery is scheduled for Jun. Will fu in july after the procedure. CT abd/pelvis 05/28/24-- reviewed in report result section. 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 Denies urinary incontinence. Has some postvoid dribbling. After urinate I think I am done but then there is more that comes out. History of kidney stones had previous ESWL. Review of chart - 02/28/24-- renal US--2mm Right Kidney. UA--today 1+ blood I have discussed reasons for blood in the urine may include but are not limited to kidney stones, cancer in the urinary tract, BPH, or inflammatory conditions of the urinary tract. I have discussed workup to include cystoscopy hydrodistion. [facility] Medical History Ileostomy in place Habitual snoring Dysuria Diverticulitis large intestine w/o perforation or abscess w/o bleeding Hypokalemia Anemia Impaired glucose tolerance Acute allergic reaction Fatty liver Irritable bowel syndrome Hypertension History of renal calculi Hypercholesterolemia GERD (gastroesophageal reflux disease) Obesity (BMI 30-39.9) Surgical History Hx of section History of diverticulitis Hx of colonoscopy History of esophagogastroduodenoscopy (EGD) Hx of arthroscopy of left knee Hx of arthroscopy of right knee History of lithotripsy Hx of appendectomy H/O tubal ligation History of abdominal hysterectomy Family History Father Brain tumor Mother Hypertension CVD (cardiovascular disease) Social History Household Members: Spouse Household Members Other:: at bedside Housing: House Are you a primary hemodialysis patient care specialist to a significant other at home: No Do you presently have visiting nurse or other home services: No Alcohol intake: never Comment: COUNTS CORRECT Patient Tobacco Use Status: Never used Tobacco e-Cigarette/Vaping Use: Never Used Second Hand Smoke Exposure: No Substance Use Type: Sedatives service: No Current occupational status: employed Current occupational exposures/hazards: No Cognitive needs: No Hearing needs: No Vision needs: Yes Review of Systems Const All systems reviewed & are unremarkable except as noted in HPI and below Reports no additional complaints Eyes Reports no additional complaints ENT Reports no additional complaints Card Reports no additional complaints Resp Reports no additional complaints GI Reports no additional complaints Reports as per HPI Musc Reports no additional complaints Skin/Breast Reports system reviewed and no additional complaints, except as documented Neuro Reports no additional complaints Psych Reports no additional complaints Endo Reports no additional complaints Chriss/Lymph Reports no additional complaints Aller/Immun Reports no additional complaints Results AMB Urinalysis, Automated UA Leukoctes 0 Sonia/uL Last Edit by Noris Holman on 10/29/24 16:46 UA Nitrite Negative Last Edit by Noris Holman on 10/29/24 16:46 UA Urobilinogen 3.5 mg/dL Last Edit by Noris Holman on 10/29/24 16:46 UA Protein 1 mg/dL Last Edit by Noris Holman on 10/29/24 16:46 UA pH 5.5 Last Edit by Noris Holman on 10/29/24 16:46 UA Blood 25 Lucian/uL Last Edit by Noris Holman on 10/29/24 16:46 UA Specific Buchanan 1.025 Last Edit by Noris Holman on 10/29/24 16:46 UA Ketone Negative Last Edit by Noris Holman on 10/29/24 16:46 UA Bilirubin 0 mg/dL Last Edit by Noris Holman on 10/29/24 16:46 UA Glucose 0 mg/dL Last Edit by Noris Holman on 10/29/24 16:46 Results Reviewed Results Reviewed: Date of Service: 05/28/24 CT abdomen and pelvis with contrast Comparison: CT/REG/[place]/SR - CT ABDOMEN PELVIS W IV CON - 06/22/22 10:42 EST Findings: The lung bases are clear. The gallbladder and solid organs are within normal limits. No renal stones. Prior hysterectomy. Nonvisualization of the appendix. No secondary findings to suggest appendicitis. Severe asymmetric thickening of the superolateral bladder wall on the left side. There is associated traction on the bladder wall and contact with adjacent sigmoid diverticula (series 4 images 32-44). There is also thickening of the adjacent peritoneal surface (series 3, image 70). There is infiltration of adjacent fat and borderline thickening of adjacent diverticula. There is no gas within the bladder lumen. There is no extraluminal gas within the mesentery. No bowel obstruction. No pneumatosis or portal venous gas. The bones are intact. IMPRESSION: Findings are likely on the basis of chronic diverticulitis of the sigmoid colon with involvement of a portion of the bladder wall and peritoneum. Possible early fistulous communication between the sigmoid colon and bladder. Given the degree of bladder wall thickening, neoplasm is not excluded. Assessment & Plan Assessment & Plan (1) Sensation of pressure in bladder area: Code(s): R39.89 - Other symptoms and signs involving the genitourinary system Category: Medical (2) Microscopic hematuria: Code(s): R31.29 - Other microscopic hematuria Category: Medical (3) Kidney stone: Code(s): N20.0 - Calculus of kidney Category: Medical (4) Bladder pain: Code(s): R39.89 - Other symptoms and signs involving the genitourinary system Category: Medical (5) Diverticular disease: Code(s): K57.90 - Diverticulosis of intestine, part unspecified, without perforation or abscess without bleeding Category: Medical (6) History of renal calculi: Comment: Dr. Tilley 2004 Code(s): Z87.442 - Personal history of urinary calculi Category: Medical Plan Plan - monitor kidneys, history of kidney stones we will check a renal ultrasound - Reassess overactive bladder treatment, including the potential repeat of Botox injections., she is currently being evaluated by General surgery due to her diverticular disease status post sigmoid resection and ileal loop ostomy for possible ileostomy reversal. Orders: Orders US renal BI 3 Months R31.29 - Other microscopic hematuria, Z87.442 - Personal history of urinary calculi Urine Cytology Today N20.0 - Calculus of kidney, R31.29 - Other microscopic hematuria, R39.89 - Other symptoms and signs involving the genitourinary system AMB Urinalysis Automated Today Z13.9 - Encounter for screening, unspecified Patient Instructions: The patient had an opportunity to ask questions regarding treatment plan. The patient expressed understanding and agreement with the above treatment plan. The patient is aware they should contact our office by phone for worsening of their current condition or the appearance of new symptoms. Compliance is encouraged with any medications and followup testing that is ordered. It is a privilege to be allowed the opportunity to participate in the urologic care of your patient. If you have any questions or concerns regarding treatment for the above conditions please do not hesitate to contact me. The office telephone contact is [phone]. This note is constructed in part using voice recognition software. While every effort has been made to ensure accuracy hospital account liaison errors may have been included. Yours sincerely, Hector Hays MD Scribe Plan - Not visible on output: Patient Instructions Patient was informed and verbally consented to the use of an ambient scribe for clinic note documentation during this visit. Coding Diagnoses Sensation of pressure in bladder area R39.89 Microscopic hematuria R31.29 Kidney stone N20.0 Bladder pain R39.89 Diverticular disease K57.90 History of renal calculi Z87.442
== END 2024-10-29 15:13 | disposition home or self-care (01) ==
LOC: HO.HUSH 14:07
PROVIDERS: PCP Internal Medicine; Visit Provider Urology
DX: Z13.9 Encounter for screening, unspecified (principal)

== ENCOUNTER 2024-10-29 14:06 | Outpatient (REF) | payer BC, SELFPAY ==
[2024-10-29 16:47] LABS: Urine Cytology See Pathology rpt
== END 2024-10-29 14:07 | disposition home or self-care (01) ==
LOC: HO.LNP 14:06
PROVIDERS: PCP Internal Medicine; Visit Provider Urology
DX: R31.29 Other microscopic hematuria (principal); N20.0 Calculus of kidney; R39.89 Other symptoms and signs involving the genitourinary system
CPT/HCPCS: 81003; 88112

== ENCOUNTER 2024-11-05 11:40 | Outpatient (REF) | payer BC, SELFPAY ==
[2024-11-05 12:51] LABS: Blood Urea Nitrogen 10 mg/dL (9-16); Estimated Glomerular Filt Rate > 60
== END 2024-11-05 11:41 | disposition home or self-care (01) ==
LOC: HO.LAB 11:40
PROVIDERS: PCP Internal Medicine; Visit Provider Surgery
DX: Z93.2 Ileostomy status (principal)
CPT/HCPCS: 36415; 82565; 84520

== ENCOUNTER 2024-11-05 11:40 | Outpatient (AMB) | payer BC, SELFPAY ==
[2024-11-05 11:42] VITALS: BP 135/81; PULSE 95; BMI 29.4
--- NOTE | 2024-11-05 11:42 | MHC.OFFVIS ---
Vital Signs 11/05/24 11:42 Height 5 ft 2 in Weight 161 lb BMI 29.4 BP 135/81 Blood Pressure Location Rt brachial Position Sitting Pulse 95 Intake Visit Reasons: s/p enema 10/24 Intake Note: Patient here s/p enema on 10-24-2024. Patient c/o: abdominal pain from surgery in July. Taking Tylenol as needed. 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 She had undergone sigmoid resection with reanastomosis and a diverting loop ileostomy with Dr. Spangler last July,. This was done in view of her long history of recurrent diverticulitis including an intramural abscess in the past I had seen her last month in the office and I had scheduled her for a barium enema test of her anastomosis She says she had been doing well. She does admit to pain on the area of the ileostomy which she says can sometimes be severe. Her loop ileostomy has been functioning well. She has good oral intake. She says that she has remained active with walking. [facility] Medical History Ileostomy in place Habitual snoring Dysuria Diverticulitis large intestine w/o perforation or abscess w/o bleeding Hypokalemia Anemia Impaired glucose tolerance Acute allergic reaction Fatty liver Irritable bowel syndrome Hypertension History of renal calculi Hypercholesterolemia GERD (gastroesophageal reflux disease) Obesity (BMI 30-39.9) Surgical History Hx of section History of diverticulitis Hx of colonoscopy History of esophagogastroduodenoscopy (EGD) Hx of arthroscopy of left knee Hx of arthroscopy of right knee History of lithotripsy Hx of appendectomy H/O tubal ligation History of abdominal hysterectomy Family History Father Brain tumor Mother Hypertension CVD (cardiovascular disease) Social History Household Members: Spouse Household Members Other:: at bedside Housing: House Are you a primary pet care technician to a significant other at home: No Do you presently have visiting nurse or other home services: No Alcohol intake: never Comment: COUNTS CORRECT Patient Tobacco Use Status: Never used Tobacco e-Cigarette/Vaping Use: Never Used Second Hand Smoke Exposure: No Substance Use Type: Sedatives service: No Current occupational status: employed Current occupational exposures/hazards: No Cognitive needs: No Hearing needs: No Vision needs: Yes Review of Systems Const Denies chills and Denies fever(s) Card Denies chest pain, Denies dyspnea and Denies dyspnea on exertion Resp Denies cough, Denies dyspnea and Denies dyspnea on exertion GI Denies hematochezia and Denies change in bowel habits Denies hematuria Musc Denies back pain and Denies limited range of motion Neuro Denies focal weakness and Denies convulsions Psych Denies depression and Denies mood swings Physical Exam Vital Signs: Last Vital Signs Pulse 95 11/05/24 11:42 BP 135/81 11/05/24 11:42 BMI result Body Mass Index 29.4 Const General: comfortable and no acute distress Orientation/consciousness: patient oriented x3 Neck Neck: Yes no lymphadenopathy Resp Auscultation: clear to auscultation bilaterally Cardio Rhythm: regular rhythm GI Other: Loop ileostomy functioning well, midline incision is well healed, no obvious hernias Palpation (GI): Soft to palpation, nontender and no guarding Neuro General: patient oriented x3 Assessment & Plan Assessment & Plan (1) Ileostomy in place: Code(s): Z93.2 - Ileostomy status Category: Medical Plan: 59 year female with a protective loop ileostomy after sigmoid resection and reanastomosis for diverticular disease with Dr. Spangler last July, I have reviewed her barium enema test and this shows that the anastomosis is widely patent and intact with any suggestion of the any anastomotic leak I therefore explained to her the technique of reversal of the loop ileostomy with possible laparotomy. I explained the risks including but not limited to bleeding, infections, bowel injury, hernias, staple line leak, inherent risks of anesthesia, as well as the benefits and alternatives. Also discussed with her what to expect postoperatively She says she understands and wants to proceed with reversal of her loop ileostomy with possible laparotomy. She also describes frequent pain around her stoma which she says this has been going on since postop. She says that sometimes the pain can be severe. I will therefore also going to order for a CAT scan of the abdomen and pelvis to rule out any other pathology in the area for now. Orders: Orders Blood Urea Nitrogen 11/05/24 Z93.2 - Ileostomy status Creatinine 11/05/24 Z93.2 - Ileostomy status CT abdomen pelvis w IV con 11/05/24 Z93.2 - Ileostomy status Coding Level of Care Code Est Pt Level 3 (20282) Diagnoses Ileostomy in place Z93.2
== END 2024-11-05 11:54 | disposition home or self-care (01) ==
LOC: HO.HGS 11:41
PROVIDERS: PCP Internal Medicine; Visit Provider Surgery
DX: Z93.2 Ileostomy status (principal)
CPT/HCPCS: 99024

== ENCOUNTER 2024-11-16 15:25 | Outpatient (AMB) | payer BC, SELFPAY ==
--- NOTE | 2024-11-16 15:26 | MHC.OFFVIS ---
Vital Signs 11/16/24 15:31 Height 5 ft 2 in Weight 162 lb BMI 29.6 BP 136/78 Blood Pressure Location Rt brachial Position Sitting Pulse 94 Pulse Source Pulse Oximeter Pulse Oximetry (%) 99 Oxygen Delivery Method Room Air Intake Visit Reasons: 3m constipation Intake Note: ESTABLISHED PATIENT for Constipation + chronic abd pain mgmt. Chief Complaint; Pt denies any GI sx or concerns. Pt is s/p colostomy placement. No complications reported per pt. Iron Melter Required: No Accompanied by: Self / Same As Patient Allergies lisinopril Adverse Reaction (Intermediate, Verified 11/16/24 15:27) Cough HPI HPI 3m constipation: Details: LAST VISIT: History of diverticulitis Diverticular disease Constipation Epigastric abdominal pain GERD (gastroesophageal reflux disease) Plan Continue Linzess. May take Colace in the evening. Reminded patient about the importance of good bowel prep before going for surgery. Her surgery was rescheduled for August 16. Patient has follow-up with the surgeon early August. Patient will follow-up with us in 3 months. patient is agreeable to this plan and verbalizes understanding of instructions. She was given the opportunity to ask questions and all questions answered. ? Thank you for allowing me to participate in her care New docusate sodium 200 mg (2 x 100 mg) PO BEDTIME 180 caps 3RF K59.00 TODAY'S VISIT: Patient is here today for follow-up. Patient had bowel resection and loop ileostomy was placed on August 16. Patient reports that she has been seen by surgeons in the office for follow-up. Surgery was performed by Dr. Spangler. Surgeon no longer practicing at [place] and patient has been following up with Dr. Galindo as Dr. Keyur moore as ordered CT scan for patient before going for colon resection. Patient reports increased abdominal pain and tenderness. Pain is located throughout the whole abdomen not just around her stoma. Patient also reports pain around her surgical incision. Patient reports that she is moving her bowels. Emptying her ileostomy bag daily. Patient denies having any melena or hematochezia. Patient is trying to eat healthy. Denies any nausea or vomiting. Symptoms of acid reflux are suppressed with pantoprazole. [facility] Medical History Colostomy in place Ileostomy in place Habitual snoring Dysuria Diverticulitis large intestine w/o perforation or abscess w/o bleeding Hypokalemia Anemia Impaired glucose tolerance Acute allergic reaction Fatty liver Irritable bowel syndrome Hypertension History of renal calculi Hypercholesterolemia GERD (gastroesophageal reflux disease) Obesity (BMI 30-39.9) Surgical History Hx of section History of diverticulitis Hx of colonoscopy History of esophagogastroduodenoscopy (EGD) Hx of arthroscopy of left knee Hx of arthroscopy of right knee History of lithotripsy Hx of appendectomy H/O tubal ligation History of abdominal hysterectomy Family History Father Brain tumor Mother Hypertension CVD (cardiovascular disease) Social History Household Members: Spouse Household Members Other:: at bedside Housing: House Are you a primary rn urgent care to a significant other at home: No Do you presently have visiting nurse or other home services: No Alcohol intake: never Comment: COUNTS CORRECT Patient Tobacco Use Status: Never used Tobacco e-Cigarette/Vaping Use: Never Used Second Hand Smoke Exposure: No Substance Use Type: Sedatives service: No Current occupational status: employed Current occupational exposures/hazards: No Cognitive needs: No Hearing needs: No Vision needs: Yes Review of Systems Const Denies weight gain and Denies weight loss ENT Reports no additional complaints, Denies dysphagia and Denies odynophagia Card Reports no additional complaints Resp Reports no additional complaints GI Reports abdominal pain, Denies belching, Denies melena, Reports bloating, Denies change in bowel habits, Denies dysphagia, Denies excessive flatus, Denies dyspepsia, Denies heartburn, Denies diarrhea, Denies loose stools, Denies nausea, Denies odynophagia and Denies vomiting Reports no additional complaints Musc Reports no additional complaints Neuro Reports no additional complaints Psych Reports no additional complaints Endo Reports no additional complaints Physical Exam Vital Signs: Last Vital Signs Pulse 94 11/16/24 15:31 BP 136/78 11/16/24 15:31 Pulse Ox 99 11/16/24 15:31 Oxygen Delivery Method Room Air 11/16/24 15:31 BMI result Body Mass Index 29.6 Const General: comfortable and no acute distress Orientation/consciousness: patient oriented x3 Neck Neck: Yes no lymphadenopathy Resp Effort & Inspection: normal respiratory effort Auscultation: clear to auscultation bilaterally Cardio Rhythm: regular rhythm GI Other: Loop ileostomy functioning well, midline incision is well healed, no obvious hernias Palpation (GI): Soft to palpation, nontender and no guarding General: Yes no CVA tenderness Back/Spine/Pelvis Back: no CVA tenderness Neuro General: patient oriented x3 Assessment & Plan Assessment & Plan (1) GERD (gastroesophageal reflux disease): Code(s): K21.9 - Gastro-esophageal reflux disease without esophagitis Category: Medical Qualifiers: Esophagitis presence: without esophagitis Qualified Code(s): K21.9 - Gastro-esophageal reflux disease without esophagitis (2) S/P colon resection: Comment: exploratory laparotomy, sigmoid resection, transanal colorectal anastomosis, proctosigmoidoscopy, diverting loop ileostomy 08/16/2024 Code(s): Z90.49 - Acquired absence of other specified parts of digestive tract Category: Surgical (3) History of diverticulitis: Code(s): Z87.19 - Personal history of other diseases of the digestive system Category: Surgical (4) Diverticular disease: Code(s): K57.90 - Diverticulosis of intestine, part unspecified, without perforation or abscess without bleeding Category: Medical (5) Ileostomy in place: Code(s): Z93.2 - Ileostomy status Category: Medical (6) Constipation: Code(s): K59.00 - Constipation, unspecified Category: Medical Qualifiers: Constipation type: slow transit constipation Qualified Code(s): K59.01 - Slow transit constipation (7) Epigastric abdominal pain: Code(s): R10.13 - Epigastric pain Category: Medical Plan Patient reports increased pain throughout her whole abdomen. Patient reports that she feels that she has to defecate and push. Patient has appointment for CT scan December 11. Given her symptoms are getting worse we will send her for urgent CT. New order placed in the computer. Patient has tenderness throughout her whole abdomen. Denies any fever or chills. Good bowel sounds surrounding that ileostomy stoma. No tenderness noted. Stool brown in the bag. Patient will continue her diet. Avoid dietary triggers. Continue pantoprazole. I will see her in 3 months, sooner on as needed basis. Patient is to follow-up with her surgeon after she gets her CT scan. Patient is agreeable to this plan and verbalizes understanding of instructions. She was given the opportunity to ask questions and all questions answered. Thank you for allowing me to participate in her care Orders: Orders CT abdomen pelvis w IV con Today R10.9 - Unspecified abdominal pain Coding Level of Care Code Est Pt Level 4 (85232) Complex EM visit Add On G2211 Diagnoses Gastroesophageal reflux disease without esophagitis K21.9 Esophagitis presence: without esophagitis S/P colon resection Z90.49 History of diverticulitis Z87.19 Diverticular disease K57.[address] Z93.2 Slow transit constipation K59.01 Constipation type: slow transit constipation Epigastric abdominal pain R10.13 Time Spent (min) 40 Comment 25 minutes spent with patient and additional 15 minutes spent reviewing her records
--- OUTSIDE RECORDS SUMMARY | 2024-11-16 15:27 | XMS_ITS | Patient Health Record ---
Author Organization [facility] Address [address] [place] [address] Care Team Providers Care Hardener Helper Name Role Phone Alan Christensen Unavailable [phone] Reason For Referral No Information Medications Medication SIG (Take, Route, Frequency, Duration) Notes Start Date End Date Status PriLOSEC Active Bentyl 10 MG 1 or 2 capsules Oral ly Four times a day as needed for abdominal pain for 30 day(s) 03/17/2011 Active Problems Problem Type SNOMED Code ICD Code Onset Dates Problem Status W/U Status Risk Notes Problem Left upper quadrant pain (260818247) Abdominal pain, left upper quadrant (789.02) Active confirmed Plan Of Treatment No Information Insurance Providers Payer Name Payer Address Payer Phone Subscriber Number Group Number Insured Name Patient Relationship to Insured Coverage Start Date Coverage End Date [facility] [address] [place] [phone] [id number] ARGELIA RUFFIN Self - patient is the insured Medical (General) History Medical History History ICD Code Denies [place],DM,CVA,Lung disease,renal dise ase Surgical History Surgery Date(Month/Year) section appendectomy hysterectomy knee surgery shock wave lithotripsy for kidney stones
[2024-11-16 15:31] VITALS: BP 136/78; PULSE 94; O2SAT 99; BMI 29.6
== END 2024-11-16 16:13 | disposition home or self-care (01) ==
LOC: HO.HGI 15:25
PROVIDERS: PCP Internal Medicine; Visit Provider Nurse Practitioner Family
DX: K21.9 Gastro-esophageal reflux disease without esophagitis (principal); Z90.49 Acquired absence of other specified parts of digestive tract; Z87.19 Personal history of other diseases of the digestive system; K57.90 Diverticulosis of intestine, part unspecified, without perforation or abscess without bleeding; Z93.2 Ileostomy status; K59.01 Slow transit constipation; R10.13 Epigastric pain
CPT/HCPCS: 99214

== ENCOUNTER 2024-11-21 15:16 | Outpatient (REF) | payer BC, SELFPAY ==
--- NOTE | ~2024-11-21 | CT_ITS ---
EXAMINATION: CT ABDOMEN AND PELVIS WITH CONTRAST CLINICAL INFORMATION: Abdominal pain, peristomal pain DLP: 866 mGY*cm COMPARISON: May 28, 2024 TECHNIQUE: Multidetector volumetric images were obtained from the superior aspect of the liver through the pubic symphysis following administration 85 mL of Omnipaque 350 intravenous contrast. Sagittal and coronal reformatted images were obtained on the technologist's workstation. Oral contrast: No This CT examination was performed using dose optimization techniques as appropriate, variously including the following: *Automated exposure control *Adjustment of mA and/or kV according to patient size (this includes techniques or standardized protocols for targeted exams where dose is matched to indication/reason for exam; i.e. extremities or head) *Use of iterative reconstruction technique FINDINGS: LUNG BASES: The visualized lung bases are unremarkable. LIVER, GALLBLADDER, AND BILIARY TREE: Changes are present in the liver with mild focal sparing along the fissure for ligamentum teres. The gallbladder is unremarkable with no evidence of radiopaque gallstones, gallbladder wall thickening, or obvious pericholecystic inflammatory changes. PANCREAS: Unremarkable. SPLEEN: Unremarkable. ADRENAL GLANDS: Unremarkable. KIDNEYS AND URETERS: The kidneys are normal in size, shape, and attenuation. No hydronephrosis, hydroureter, or calculi seen. No perinephric stranding. Distal ureters are obscured by beam hardening artifact due to retained barium in the right colon after barium enema was performed one month ago. BLADDER: Unremarkable. GASTROINTESTINAL TRACT: There is retained barium right colon. Minimal barium in the transverse and descending colon resulting in beam hardening artifact that severely limits evaluation of these areas of the gastrointestinal tract and adjacent structures. There is a right lower quadrant ileostomy. There is fat stranding of the adjacent mesentery. This is moderately obscured by beam hardening artifact. There is a short loop of small bowel, approximately 10 cm, herniated lateral to the diverting ileal loop. There is no visible dilation of the small bowel or air-fluid levels. ABDOMINAL WALL: CDI tract. LYMPH NODES: Normal. VASCULAR: Vascular calcifications are present. PELVIC VISCERA: Hysterectomy has been performed. OSSEOUS STRUCTURES: Unremarkable. CT/CT abdomen pelvis w IV con IMPRESSION: There appears to be herniation of the 10 cm loop of small bowel lateral to the ileostomy and stranding of the adjacent mesentery. There are no signs of obstruction. Retained barium from barium enema performed one month ago results in moderate to severe beam hardening artifact which limits the study. Fleischner guidelines were followed. Electronically signed by: Jeremy Quintero MD 11/21/2024 05:14 PM EDT RP
--- OUTSIDE RECORDS SUMMARY | 2024-11-21 15:31 | XMS_ITS | Patient Health Record ---
Author Organization [facility] Address [address] [place] [address] Care Team Providers Care Renewals Specialist Name Role Phone Alan Christensen Unavailable [phone] Reason For Referral No Information Medications Medication SIG (Take, Route, Frequency, Duration) Notes Start Date End Date Status PriLOSEC Active Bentyl 10 MG 1 or 2 capsules Oral ly Four times a day as needed for abdominal pain for 30 day(s) 03/17/2011 Active Problems Problem Type SNOMED Code ICD Code Onset Dates Problem Status W/U Status Risk Notes Problem Abdominal pain, left upper quadrant (789.02) Active confirmed Plan Of Treatment No Information Insurance Providers Payer Name Payer Address Payer Phone Subscriber Number Group Number Insured Name Patient Relationship to Insured Coverage Start Date Coverage End Date [facility] [address] [place] [phone] [id number] ARGELIA RUFFIN Self - patient is the insured Medical (General) History Medical History History ICD Code Denies [place],DM,CVA,Lung disease,renal dise ase Surgical History Surgery Date(Month/Year) section appendectomy hysterectomy knee surgery shock wave lithotripsy for kidney stones
[2024-11-21] MEDS: iohexoL 350 MG/ML 100 ML INFUS..BTL IV (16:44)
== END 2024-11-21 15:17 | disposition home or self-care (01) ==
LOC: HO.CT 15:16
PROVIDERS: Absent Provider Surgery; PCP Internal Medicine; Visit Provider Nurse Practitioner Family
DX: R10.9 Unspecified abdominal pain (principal)
CPT/HCPCS: 74177; Q9967

== ENCOUNTER → 2024-11-21 15:18 | Outpatient (BNV) | payer BC, SELFPAY | PROVIDERS: Absent Provider Surgery; PCP Internal Medicine; Visit Provider Radiology Diagnostic Radiology | DX: K43.3 Parastomal hernia with obstruction, without gangrene (principal) | CPT/HCPCS: 74177 ==

== ENCOUNTER 2025-01-01 10:31 | Inpatient (IN) | payer BC, SELFPAY ==
[2024-12-11 11:53] VITALS: BP 133/82; PULSE 91; RESP 16; O2SAT 99; BMI 29.4
--- NOTE | 2024-12-11 12:25 | P.CONAN_ITS ---
Documented by User: Coco Jacob NP 12/11/24 12:36 HPI - Anesthesia Eval Consult details Narrative: 59 yr old female for Loop Ileostomy Closure,possible Laparotomy No recent illness No CP/SOB with ADLs, walking in yard s/p colectomy 07/2024 with GA GERD: on PPI PMFSH Active Problems Active Problems: All Active Problems (Updated 12/11/24 @ 12:06 by Lorie Benito, LEANDRO) Encounter for postoperative wound check (Acute) Postop check (Acute) S/P colon resection (Acute) Sensation of pressure in bladder area (Acute) Thyroid enlargement (Acute) Bladder pain (Acute) Kidney stone (Acute) Microscopic hematuria (Acute) Urinary frequency (Acute) Degenerative arthritis of knee, bilateral (Acute) Vaginal lesion (Acute) Vaginal bleeding (Acute) Type 2 diabetes mellitus with hyperglycemia (Acute) Hyperparathyroidism (Acute) Hypercalcemia (Acute) UTI (urinary tract infection) (Acute) Painful tongue (Acute) Annual physical exam (Acute) Diverticular disease (Acute) Shoulder pain, right (Acute) Constipation (Acute) Gastric erosions (Acute) Epigastric abdominal pain (Acute) Hair loss (Acute) COVID-19 (Acute) Plantar fasciitis of right foot (Acute) Vitamin D deficiency (Acute) Ileostomy in place (Acute) History of diverticulitis (Acute) Dysuria (Acute) Hypertension (Acute) Acute allergic reaction (Acute) History of renal calculi (Acute) Hypercholesterolemia (Acute) GERD (gastroesophageal reflux disease) (Acute) Past Medical History Medical History Numbness Colostomy in place Ileostomy in place Habitual snoring Dysuria Diverticulitis large intestine w/o perforation or abscess w/o bleeding Hypokalemia Anemia Impaired glucose tolerance Acute allergic reaction Fatty liver Irritable bowel syndrome Hypertension History of renal calculi Hypercholesterolemia GERD (gastroesophageal reflux disease) Obesity (BMI 30-39.9) Family History Family History Father Brain tumor Mother Hypertension CVD (cardiovascular disease) Family history of problems with anesthesia: No Surgical History Surgical History H/O exploratory laparotomy (08/16/24) Hx of section History of diverticulitis Hx of colonoscopy History of esophagogastroduodenoscopy (EGD) Hx of arthroscopy of left knee Hx of arthroscopy of right knee History of lithotripsy Hx of appendectomy H/O tubal ligation History of abdominal hysterectomy History of Problems with Anesthesia: No Social History Social History Household Members: Spouse Household Members Other:: at bedside Housing: House Are you a primary animal care specialist to a significant other at home: No Do you presently have visiting nurse or other home services: No Alcohol intake: never Comment: COUNTS CORRECT Patient Tobacco Use Status: Never used Tobacco e-Cigarette/Vaping Use: Never Used Second Hand Smoke Exposure: No Use of substances other than those prescribed or required for medical reasons: No Substance Use Type: Sedatives Have you been hit, kicked, punched, or otherwise hurt by someone within the past year? If so, by whom?: No Are you DNR?: No Advance Directives: No Advance Directives Information Provided: Yes Advance Directives on File: No Poor oral hygiene: No service: No Current occupational status: employed Current occupational exposures/hazards: No Cognitive needs: No Hearing needs: No Vision needs: Yes Meds Allergies Allergy/AdvReac Type Severity Reaction Status Date / Time lisinopril AdvReac Intermediate Cough Verified 01/01/25 09:26 Home Medications ?Medication ?Instructions ?Recorded ?Confirmed ?Last Taken ?Type docusate sodium 100 mg capsule 200 mg PO BID PRN Const ipation 08/24/24 01/01/25 08/24/24 History Exam Height,Weight and Vital Signs: Height 5 ft 2 in Weight 73.028 kg Last Vital Signs Pulse 91 12/11/24 11:53 Resp 16 12/11/24 11:53 BP 133/82 12/11/24 11:53 Pulse Ox 99 12/11/24 11:53 O2 Del Method Room Air 12/11/24 11:53 Narrative Narrative: EKG 06/2024 NSR rate 78 Airway Mallampati Class: III TM Dist: >3cm Neck ROM: Full Loose/Missing/Broken Teeth: No Heart: RRR Lungs: CTAB Assessment and Plan Final Anesthetic Review Family History of Problems with Anesthesia: No History of Problems with Anesthesia: No Documented by User: Rodney Fuller MD 01/01/25 10:10 PMFSH Past Medical History Medical History Numbness Colostomy in place Ileostomy in place Habitual snoring Dysuria Diverticulitis large intestine w/o perforation or abscess w/o bleeding Hypokalemia Anemia Impaired glucose tolerance Acute allergic reaction Fatty liver Irritable bowel syndrome Hypertension History of renal calculi Hypercholesterolemia GERD (gastroesophageal reflux disease) Obesity (BMI 30-39.9) Family History Family History Father Brain tumor Mother Hypertension CVD (cardiovascular disease) Surgical History Surgical History H/O exploratory laparotomy (08/16/24) Hx of section History of diverticulitis Hx of colonoscopy History of esophagogastroduodenoscopy (EGD) Hx of arthroscopy of left knee Hx of arthroscopy of right knee History of lithotripsy Hx of appendectomy H/O tubal ligation History of abdominal hysterectomy Social History Social History Household Members: Spouse Household Members Other:: at bedside Housing: House Are you a primary animal care specialist to a significant other at home: No Do you presently have visiting nurse or other home services: No Alcohol intake: never Comment: COUNTS CORRECT Patient Tobacco Use Status: Never used Tobacco e-Cigarette/Vaping Use: Never Used Second Hand Smoke Exposure: No Use of substances other than those prescribed or required for medical reasons: No Substance Use Type: Sedatives Have you been hit, kicked, punched, or otherwise hurt by someone within the past year? If so, by whom?: No Are you DNR?: No Advance Directives: No Advance Directives Information Provided: Yes Advance Directives on File: No Poor oral hygiene: No service: No Current occupational status: employed Current occupational exposures/hazards: No Cognitive needs: No Hearing needs: No Vision needs: Yes Meds Allergies Allergy/AdvReac Type Severity Reaction Status Date / Time lisinopril AdvReac Intermediate Cough Verified 01/01/25 09:26 Home Medications ?Medication ?Instructions ?Recorded ?Confirmed ?Last Taken ?Type docusate sodium 100 mg capsule 200 mg PO BID PRN Const ipation 08/24/24 01/01/25 08/24/24 History Assessment and Plan Assessment Anesthesia Assessment: Anesthesia Plan Discussed and Chart Reviewed Final Anesthetic Review NPO: Yes ASA Class: III Final Preanesthetic Review: No Changes in Pt Med Stat, Meds/Allgs Chart Reviewed, Consent Obtained/Reviewed, Anes Risks/Benef Reviewed and DNR Form (If Appl.) Patient Risk: Intermediate Procedure Risk: Intermediate Anesthetic Plan Anesthetic Plan: GA Disposition: Standard PACU
[2024-12-11 14:06] LABS: Hematocrit 38.0 % (37.0-47.0); Hemoglobin 12.0 g/dl (12.0-16.0); Mean Corpuscular HGB Conc 31.6 g/dl (31.0-35.0); Mean Corpuscular Hemoglobin 26.2 pg (27.0-33.0); Mean Corpuscular Volume 83.0 fL (80.0-98.0); NRBC Abs Auto 0.000 X10*3/uL (0.0-0.012); NRBC Pct Auto 0.0 /100WBC (0.0-0.2); Platelet Count 409 X10*3/uL (160-400); Red Blood Count 4.58 X10*6/uL (4.20-5.50); White Blood Count 9.9 X10*3/uL (4.8-10.8)
[2025-01-01] VITALS (12 sets, daily range): BP systolic 108–190; BP diastolic 78–103; PULSE 73–93; RESP 12–20; TEMP 36–36.6; O2SAT 93–97; BMI 30.6; BMI 35.5
[2025-01-01] MEDS: Lactated Ringers 1,000 ML 100 ML IVCONT ×3 (09:44→23:22)
--- NOTE | 2025-01-01 10:44 | MHC.SHP ---
Pre-Procedural Eval Section A - 24 Hr Update-Section A only Date of Service: 01/01/25 Section B - Complete if H&P > 30 days Chief Complaint: Ileostomy status Details of Present Illness: for reversla of loop ileostomy; had sigmoid resection with Dr Spangler for diverticulitis Relevant Family History (Specify if Yes): No Relevant Social History: None Present Medications: see Short Stay Collaborative assessment Medical History: Significant History (DM, obesity HTN) History of Previous Operations: Relevant previous surgery/procedure and date(s) (sigmoid resection) Allergies: Allergies Allergy/AdvReac Type Severity Reaction Status Date / Time lisinopril AdvReac Intermediate Cough Verified 01/01/25 09:26 Review of Systems Sugical H&P ROS: Negative: Constitution, Cardiovascular and Respiratory Exam Surgical H&P Exam: Normal: Heart and Normal: Lungs and Significant Findings: Abdomen (loop ileostomy) Plan Diagnosis/Plan: Unchanged I have reviewed the history and physical and performed a pertinent physical examination on my patient. No changes have occurred unless specified. Time Spent With Patient Time: Total time managing care of this patient today ____ minutes.
--- OUTSIDE RECORDS SUMMARY | 2025-01-01 11:53 | XMS_ITS | Patient Health Record ---
Author Organization [facility] Address [address] [place] [address] Care Team Providers Care Legal Records Manager Name Role Phone Alan Christensen Unavailable [phone] Reason For Referral No Information Medications Medication SIG (Take, Route, Frequency, Duration) Notes Start Date End Date Status PriLOSEC Active Bentyl 10 MG 1 or 2 capsules Oral ly Four times a day as needed for abdominal pain for 30 day(s) 03/17/2011 Active Problems Problem Type SNOMED Code ICD Code Onset Dates Problem Status W/U Status Risk Notes Problem Left upper quadrant pain (094398768) Abdominal pain, left upper quadrant (789.02) Active confirmed Plan Of Treatment No Information Insurance Providers Payer Name Payer Address Payer Phone Subscriber Number Group Number Insured Name Patient Relationship to Insured Coverage Start Date Coverage End Date [facility] [address] [place] [phone] [id number] ARGELIA RUFFIN Self - patient is the insured Medical (General) History Medical History History ICD Code Denies [place],DM,CVA,Lung disease,renal dise ase Surgical History Surgery Date(Month/Year) section appendectomy hysterectomy knee surgery shock wave lithotripsy for kidney stones
--- NOTE | 2025-01-01 12:22 | P.OP_ITS ---
Operative Note Operative Note Date of Service: 01/01/25 Narrative: Preop diagnosis: Loop ileostomy in place, status post sigmoid resection for diverticular disease Postop diagnosis: The same Procedure: Reversal of loop ileostomy , extensive lysis of adhesions Surgeon: Piotr Ash MD senior court office assistant: SILVIANO Campo PA The patient is a 59-year-old female who had undergone sigmoid resection and loop ileostomy for diverticular disease with Dr. Spangler last July,. She is here for reversal of her loop ileostomy. A barium enema study had shown that the anastomosis patent and intact She understood the technique of the planned procedure as well as the risks, benefits, and alternatives. She was brought to the operating room. She was placed supine under general anesthesia via endotracheal tube. I closed both efferent and afferent limbs of the loop ileostomy with a Polysorb 2-0 running stitch. The abdomen was prepped and draped in the usual sterile fashion. A surgical time-out was done. The patient received cefazolin 2 g IV preoperatively I made an elliptical incision on the skin surrounding the loop ileostomy with a blade 15. This was carried down with electrocautery through the full-thickness of the skin in the stapler subcutaneous fat down to the fascia. I carefully define the fascia surrounding the ileostomy limbs. By doing so, as able to identify the fascial edge. I applied a Peter grasper on the fascial edge medially to retract this. I then opened up the interface between the ileostomy and the fascial edge with Metzenbaum scissors. The peritoneum was therefore entered. There was large amounts of peritoneum surrounding the ileostomy consistent with a parastomal hernia. I therefore divided the hernia sac with electrocautery as well as Metzenbaum scissors circumferentially to separate this from the fascial defect. There was note of a lot of adhesions freeing the bowel loops towards the fascial edge so we had to do some careful lysis of adhesions with the Metzenbaum scissors as well as electrocautery to achieve good mobilization of the adherent bowel loops. Eventually was able to free up the bowel loops on both efferent and afferent sides. I had good mobilization of the bowel loops so I carefully define each distally. I created a mesenteric window near the end of the stump on both efferent and afferent limbs. I used the ИВАН 60 mm stapler to divide the stump on both sides. Then proceeded to serially ligate and divide the attached mesentery Polysorb 2- 0 ties until was able to completely separate the entire ileostomy stump with both efferent and afferent limbs. This was sent as a specimen. I excised the apex of each staple line using curved Westbrook scissors to enter the lumen. I positioned each arm of the ИВАН 60 mm stapler into the lumen. I positioned this at the anti mesenteric side and locked this in place. I made sure that there were no bowel loops caught between the shamar. I then fired the stapler to create our [id number] anastomosis. I then completed the anastomosis by closing the enterotomy with a TA 60 mm stapler I reinforced the crotch of the staple line with a seromuscular Polysorb 2-0 stitch The staple line appeared intact and patent. There was no evidence of any bleeding. No evidence of any ischemia. There was note of a very small serosal tear on limb which we closed with a running Polysorb 3-0 stitch Once hemostasis was confirmed, I proceeded to replace the bowel loops back into the peritoneal cavity. I closed the fascia with a running Maxon 1 stitch. I reapposed the thick subcutaneous layer with Polysorb 3-0 simple sutures Skin closure was achieved with skin shamar. I positioned a 1 in iodoform into the subcutaneous layer. Dressings were applied. The area was infiltrated with Marcaine 0.5% for postop analgesia. The procedure was completed The patient tolerated the procedure well. There were no immediate complications. Initial and final counts of sponges and instruments were correct. Estimated blood loss was less than 25 cc. The patient is extubated without difficulty and transferred to the recovery room with stable vital signs.
--- NOTE | 2025-01-01 13:59 | PHA.MEDREC ---
Pharmacy Consult ? Medication Reconciliation Pharmacy has reviewed the medication reconciliation completed by nursing.
--- NOTE | 2025-01-01 14:36 | PM.EVENT ---
Event Note Date of Service: 01/01/25 Event Note: Seen postop Underwent reversal of loop ileostomy earlier Appears to have adequate pain control currently Stable vital signs Dressings dry Abdomen is soft Pain management On clear liquids at bedside Incentive spirometry Time Spent With Patient Time: Total time managing care of this patient today ____ minutes.
--- NOTE | 2025-01-01 14:59 | PC.NURSE ---
Patient very sleepy, easily arousable by voice, nodding yes and no to questions. Patient still complains of nausea, but easily falls back asleep when not stimulated. at bedside. Allowing patient to rest at this time.
[2025-01-02 03:27] VITALS: BP 130/77; PULSE 76; RESP 18; TEMP 36.4; O2SAT 94
[2025-01-02 06:23] LABS: Anion Gap 11 (12-20); Blood Urea Nitrogen 8 mg/dL (9-16); Calcium 9.5 mg/dL (8.4-10.2); Carbon Dioxide 28 mmol/L (22-29); Chloride 107 mmol/L (96-108); Creatinine Clr Calc Pharmacy 105.7; Estimated Glomerular Filt Rate > 60; Potassium 4.9 mmol/L (3.3-5.1); Sodium 141 mmol/L (135-145)
--- NOTE | 2025-01-02 06:40 | P.PNGS_ITS ---
Subjective Subjective Date of Service: 01/02/25 <Gaviota Goff - Last Filed: 01/02/25 07:22> 01/02/25 <Piotr Ash MD - Last Filed: 01/02/25 08:11> 01/02/25 <Kash Coppola PA-C - Last Filed: 01/02/25 08:43> Interval history: The patient is a 59-year-old female POD1 s/p reversal of loop ileostomy secondary to previous sigmoid resection for diverticular disease on 08/16/2024. Upon entering the room, she appears to be sitting comfortably but is fatigued. She denies fever or chills. She was nauseous yesterday and was unable to eat her chicken noodle soup out of fear of vomiting. She has received ondansetron which has helped. She states that she experienced 10/10 pain yesterday evening and she received Tylenol and Morphine which brought her pain down to a 5/10, which is what she is currently rating her pain. She has been passing flatus, and has been ambulating without assistance to the bathroom to urinate. She has not passed a BM. She has been using her spirometry when she remembers. She is tolerating her clear liquid diet but states that she is hungry. Otherwise she has no concerns. <Gaviota Goff - Last Filed: 01/02/25 07:22> Physical Exam 2 Vital Signs: Vital Signs: Last Vital Signs Temp 97.6 F 01/02/25 03:27 Pulse 76 01/02/25 03:27 Resp 18 01/02/25 03:27 BP 130/77 01/02/25 03:27 Pulse Ox 94 01/02/25 03:27 O2 Del Method Nasal Cannula 01/02/25 03:27 O2 Flow Rate 2 01/02/25 03:27 BMI result Body Mass Index 35.5 <Gaviota Goff - Last Filed: 01/02/25 07:22> Const: General: cooperative, comfortable, no acute distress, alert, awake and tired appearing; No ill appearing <Gaviota Finch Last Filed: 01/02/25 07:22> Orientation/consciousness: patient oriented x3 <Gaviota Goff - Last Filed: 01/02/25 07:22> Resp: Effort & Inspection: normal respiratory effort and able to speak in complete sentences <[facility] Filed: 01/02/25 07:22> Auscultation: clear to auscultation bilaterally, no rales, no rhonchi and no wheezes <[facility] Filed: 01/02/25 07:22> Cardio: Rate: regular rate <[facility] Filed: 01/02/25 07:22> Rhythm: regular rhythm <[facility] Filed: 01/02/25 07:22> Heart sounds: S1 normal heart sound present and S2 normal heart sound present <[facility] Filed: 01/02/25 07:22> GI: Other: Dressings dry and in place. No purulent drainage, erythema, or edema around the dressing noted. The skin is warm and dry to the touch surrounding the dressing. <[facility] Filed: 01/02/25 07:22> Palpation (GI): Soft to palpation, Tenderness to palpation present (GI), no guarding and not rigid <[facility] Filed: 01/02/25 07:22> Percussion: Yes normal to percussion (limited due to abdominal tenderness) < [facility] Filed: 01/02/25 07:22> Auscultation: normoactive bowel sounds <[facility] Filed: 01/02/25 07:22> Skin: Other: Skin around the dressing was warm and dry. No erythema or purulent drainage appreciated. <[facility] Filed: 01/02/25 07:22> Neuro: General: patient oriented x3 <[facility] Filed: 01/02/25 07:22> Objective Data Active Medications Atorvastatin Calcium (Atorvastatin Calcium 10 Mg Tablet) 10 mg PO BEDTIME [facility] Last Admin: 01/01/25 20:43 Dose: 10 mg Documented By: MARILEE Calcium Carbonate (Calcium Carbonate 750 Mg Tab.Chew) 750 mg PO Q4H PRN PRN Reason: Heartburn Heparin Sodium (Porcine) (Heparin Sodium,Porcine 5,000 Unit/Ml Vial) 5,000 unit SUBCUT Q12H [facility] Lactated Ringer's (Lr) 1,000 mls @ 100 mls/hr IVCONT .Q10H [facility] Last Admin: 01/01/25 23:22 Dose: 100 mls/hr Documented By: MARILEE Acetaminophen (Ofirmev) 1,000 mg in 100 mls @ 400 mls/hr IV Q6H [facility] Last Admin: 01/02/25 06:00 Dose: 400 mls/hr Documented By: MARILEE Magnesium Hydroxide (Milk Of Magnesia 30 Ml Oral.Susp) 30 ml PO DAILY PRN PRN Reason: Constipation Melatonin (Melatonin 3 Mg Tablet) 6 mg PO BEDTIME PRN PRN Reason: Insomnia Morphine Sulfate (Morphine Sulfate 4 Mg/Ml Cartridge) 4 mg IVPUSH Q4H PRN; Protocol PRN Reason: Pain, Severe (Pain Scale 7-10) Last Admin: 01/02/25 06:10 Dose: 4 mg Documented By: MARILEE Omeprazole (Omeprazole 20 Mg Capsule.Dr) 20 mg PO DAILY@0630 [facility] Last Admin: 01/02/25 06:01 Dose: 20 mg Documented By: MARILEE Ondansetron HCl (Ondansetron Hcl 4 Mg/2 Ml Vial) 4 mg IVPUSH Q6H PRN PRN Reason: Nausea and Vomiting Last Admin: 01/02/25 03:41 Dose: 4 mg Documented By: MARILEE Oxycodone HCl (Oxycodone Hcl Immed Release 5 Mg Tablet) 5 mg PO Q4H PRN PRN Reason: Pain, Moderate(Pain Scale 4-6) Sodium Chloride (0.9 % Sodium Chloride Flush 3 Ml Syringe) 3 ml IVFLUSH QSHIFT [facility] Last Admin: 01/01/25 23:23 Dose: Not Given Documented By: MARILEE Non-Admin Reason: IV Running <Gaviota Goff - Last Filed: 01/02/25 07:22> Labs CBC & Chem 7: 12/11/24 13:05 01/02/25 05:39 <Gaviota Goff - Last Filed: 01/02/25 07:22> Labs: Laboratory Results - last 24 hr 01/02/25 05:39 Hold Purple Top SEE NOTE Anion Gap 11 L Estim Creat Clear Calc 105.7 Estimated GFR > 60 Fasting Glucose 120 H Calcium 9.5 <Gaviota Goff - Last Filed: 01/02/25 07:22> Procedures Date of Service Date of Service: 01/02/25 <Gaviota Goff - Last Filed: 01/02/25 07:22> 01/02/25 <Piotr Ash MD - Last Filed: 01/02/25 08:11> 01/02/25 <Kash Coppola PA-C - Last Filed: 01/02/25 08:43> Progress Note: A&P Assessment and plan (1) Ileostomy in place: Status: Acute <Gaviota Goff - Last Filed: 01/02/25 07:22> Assessment and Plan: Status post history of loop ileostomy yesterday Says she feels well overall Adequate pain control Says she passed small flatus this morning Denies nausea or vomiting Abdomen is soft and benign Keep on clear liquids today and likely advance later today or tomorrow if she has consistent flatus Ambulate Incentive spirometry Plan to change dressings tomorrow and remove packing Seen and examined independently <Piotr Ash MD - Last Filed: 01/02/25 08:11> Assessment and Plan: The patient is a 59-year-old female POD1 s/p reversal of loop ileostomy secondary to previous sigmoid resection for diverticular disease on 08/16/2024. She was nauseous yesterday and was unable to eat her chicken noodle soup out of fear of vomiting. She has received ondansetron which has helped. She states that she experienced 10/10 pain yesterday evening and she received Tylenol and Morphine which brought her pain down to a 5/10, which is what she is currently rating her pain. She has been passing flatus, and has been ambulating without assistance to the bathroom to urinate. She has not passed a BM. She has been using her spirometry when she remembers. She is tolerating her clear liquid diet but states that she is hungry. Will continue to monitor. Continue pain management as needed Encouraged ambulation as tolerated Encouraged spirometry use Advance diet to soft foods as tolerated Continue with dressing changes Continue ondansetron as needed for nausea <Gaviota Goff - Last Filed: 01/02/25 07:22> The patient is a 59-year-old female POD1 s/p reversal of loop ileostomy secondary to previous sigmoid resection for diverticular disease on 08/16/2024. She was nauseous yesterday and was unable to eat her chicken noodle soup out of fear of vomiting. She has received ondansetron which has helped. She states that she experienced 10/10 pain yesterday evening and she received Tylenol and Morphine which brought her pain down to a 5/10, which is what she is currently rating her pain. She has been passing flatus, and has been ambulating without assistance to the bathroom to urinate. She has not passed a BM. She has been using her spirometry when she remembers. She is tolerating her clear liquid diet but states that she is hungry. Will continue to monitor. Continue pain management as needed Encouraged ambulation as tolerated Encouraged spirometry use Advance diet to soft foods as tolerated Continue with dressing changes Continue ondansetron as needed for nausea patient seen and examined independently, I agree with the above assesment. Abdomen is soft, benign, appropriate generalized tenderness We will continue with clear liquids for now. Encouraged ambulation, spirometry. dressings will be removed tomorrow <Kash Coppola PA-C - Last Filed: 01/02/25 08:43> Time Spent With Patient Time: Total time managing care of this patient today ____ minutes. <Gaviota Goff - Last Filed: 01/02/25 07:22> Quality Stroke Does the patient have a stroke diagnosis?: No <Piotr Ash MD - Last Filed: 01/02/25 08:11> VTE Prior VTE?: No <Piotr Ash MD - Last Filed: 01/02/25 08:11> VTE Risk Level:: Medical - moderate - high <Gaviota Goff - Last Filed: 01/02/25 07:22> VTE Device Contraindication: N/A - Device Ordered <Gaviota Goff - Last Filed: 01/02/25 07:22> VTE Drug Contraindication: N/A - Med Ordered <Gaviota Goff - Last Filed: 01/02/25 07:22>
--- NOTE | 2025-01-02 06:54 | PM.PNGS ---
Subjective Subjective Date of Service: 01/03/25 Physical Exam Vital Signs: Vital Signs: Last Vital Signs Temp 97.6 F 01/02/25 03:27 Pulse 76 01/02/25 03:27 Resp 18 01/02/25 03:27 BP 130/77 01/02/25 03:27 Pulse Ox 94 01/02/25 03:27 O2 Del Method Nasal Cannula 01/02/25 03:27 O2 Flow Rate 2 01/02/25 03:27 BMI result Body Mass Index 35.5 Objective Data Active Medications Atorvastatin Calcium (Atorvastatin Calcium 10 Mg Tablet) 10 mg PO BEDTIME [facility] Last Admin: 01/01/25 20:43 Dose: 10 mg Documented By: MARILEE Calcium Carbonate (Calcium Carbonate 750 Mg Tab.Chew) 750 mg PO Q4H PRN PRN Reason: Heartburn Heparin Sodium (Porcine) (Heparin Sodium,Porcine 5,000 Unit/Ml Vial) 5,000 unit SUBCUT Q12H [facility] Lactated Ringer's (Lr) 1,000 mls @ 100 mls/hr IVCONT .Q10H [facility] Last Admin: 01/01/25 23:22 Dose: 100 mls/hr Documented By: MARILEE Acetaminophen (Ofirmev) 1,000 mg in 100 mls @ 400 mls/hr IV Q6H [facility] Last Admin: 01/02/25 06:00 Dose: 400 mls/hr Documented By: MARILEE Magnesium Hydroxide (Milk Of Magnesia 30 Ml Oral.Susp) 30 ml PO DAILY PRN PRN Reason: Constipation Melatonin (Melatonin 3 Mg Tablet) 6 mg PO BEDTIME PRN PRN Reason: Insomnia Morphine Sulfate (Morphine Sulfate 4 Mg/Ml Cartridge) 4 mg IVPUSH Q4H PRN; Protocol PRN Reason: Pain, Severe (Pain Scale 7-10) Last Admin: 01/02/25 06:10 Dose: 4 mg Documented By: MARILEE Omeprazole (Omeprazole 20 Mg Capsule.Dr) 20 mg PO DAILY@0630 [facility] Last Admin: 01/02/25 06:01 Dose: 20 mg Documented By: MARILEE Ondansetron HCl (Ondansetron Hcl 4 Mg/2 Ml Vial) 4 mg IVPUSH Q6H PRN PRN Reason: Nausea and Vomiting Last Admin: 01/02/25 03:41 Dose: 4 mg Documented By: MARILEE Oxycodone HCl (Oxycodone Hcl Immed Release 5 Mg Tablet) 5 mg PO Q4H PRN PRN Reason: Pain, Moderate(Pain Scale 4-6) Sodium Chloride (0.9 % Sodium Chloride Flush 3 Ml Syringe) 3 ml IVFLUSH QSHIFT [facility] Last Admin: 01/01/25 23:23 Dose: Not Given Documented By: MARILEE Non-Admin Reason: IV Running Labs 12/11/24 13:05 01/02/25 05:39 Labs: Laboratory Results - last 24 hr 01/02/25 05:39 Hold Purple Top SEE NOTE Anion Gap 11 L Estim Creat Clear Calc 105.7 Estimated GFR > 60 Fasting Glucose 120 H Calcium 9.5 Procedures Date of Service Date of Service: 01/03/25 Progress Note: A&P Time Spent With Patient Time: Total time managing care of this patient today ____ minutes. Quality VTE VTE Risk Level:: Medical - moderate - high VTE Device Contraindication: N/A - Device Ordered VTE Drug Contraindication: N/A - Med Ordered
[2025-01-02 08:00] VITALS: BP 131/80; PULSE 69; RESP 17; TEMP 36.1; O2SAT 95
--- NOTE | 2025-01-02 09:59 | HO.POSTANES ---
Post Anesthesia Evaluation Post Anesthesia Evaluation Date of Service: 01/02/25 Vital Signs: Vital Signs Temp Pulse Resp BP Pulse Ox O2 Del Method O2 Flow Rate 01/02/25 08:00 97.0 F 69 17 131/80 95 Nasal Cannula 2 01/02/25 03:27 97.6 F 76 18 130/77 94 Nasal Cannula 2 01/01/25 23:34 97.8 F 78 20 139/78 93 Nasal Cannula 2 Anesthesia: General Mental Status: Awake Pain Control: Satisfactory Nausea/Vomiting: None Hydration: Adequate Anesthesia-Related Issues: No Anes. Related Issues
[2025-01-02] MEDS: Lactated Ringers 1,000 ML 100 ML IVCONT ×2 (10:12→20:20)
[2025-01-02] MEDS: 0.9 % Sodium Chloride Flush 3 ML SYRINGE IVFLUSH ×3 (10:12→20:20)
--- NOTE | 2025-01-02 10:33 | MHC.CM.PN ---
PT LIVES WITH IS INDEPENDENT AND WORKING WILL NOT NEED SERVICES WHEN DCD HAS A RIDE HOME DC PLAN HOME NO SERVICES
[2025-01-02 16:00] VITALS: BP 145/86; PULSE 79; RESP 18; TEMP 36.7; O2SAT 95
--- NOTE | 2025-01-02 16:42 | PM.EVENT ---
Event Note Date of Service: 01/02/25 Event Note: Seen earlier on afternoon rounds Says she has adequate pain control Flatus inconsistent Looks well Stable vital signs Abdomen is soft Hope to be able to advance diet tomorrow once flatus is more consistent DC packing and change dressings tomorrow, ambulate Clinically seems to be doing well postop Time Spent With Patient Time: Total time managing care of this patient today ____ minutes.
[2025-01-02 19:46] VITALS: BP 123/61; PULSE 78; RESP 18; TEMP 36.4; O2SAT 93
[2025-01-03 03:08] VITALS: BP 127/84; PULSE 83; RESP 18; TEMP 36.2; O2SAT 95
--- NOTE | 2025-01-03 07:07 | P.PNGS_ITS ---
Subjective Subjective Date of Service: 01/03/25 <Gaviota Goff - Last Filed: 01/03/25 07:19> 01/03/25 <Kash Coppola PA-C - Last Filed: 01/03/25 12:00> 01/03/25 <Piotr Ash MD - Last Filed: 01/03/25 09:54> Interval history: The patient is a 59-year-old female POD2 s/p reversal of loop ileostomy secondary to previous sigmoid resection for diverticular disease on 08/16/2024. Upon entering the room, she appears to be sitting comfortably. She denies fever, chills, nausea, or vomiting. She currently rates her pain as a 5/10 and states that morphine helps control her pain better than the acetaminophen. She has been passing flatus more so than yesterday, and has been ambulating without assistance to the bathroom to urinate. She states that she has not been up and walking around much as she did not know she was allowed to do so without assistance from staff. There is a walker in the room. She has not passed a BM. She has been using her spirometry when she remembers. She is tolerating her clear liquid diet including soup broth and is interested in advanging her diet today. Dressings are dry and in place. Otherwise she has no concerns. <Gaviota Goff - Last Filed: 01/03/25 07:19> Physical Exam 2 Vital Signs: Vital Signs: Last Vital Signs Temp 97.2 F 01/03/25 03:08 Pulse 83 01/03/25 03:08 Resp 18 01/03/25 03:08 BP 127/84 01/03/25 03:08 Pulse Ox 95 01/03/25 03:08 O2 Del Method Room Air 01/03/25 03:08 O2 Flow Rate 2 01/02/25 08:00 BMI result Body Mass Index 35.5 <Gaviota Goff - Last Filed: 01/03/25 07:19> Const: General: cooperative, comfortable, no acute distress, alert and tired appearing <Gaviota Goff - Last Filed: 01/03/25 07:19> Orientation/consciousness: patient oriented x3 <Gaviota Finch Last Filed: 01/03/25 07:19> Resp: Effort & Inspection: normal respiratory effort and able to speak in complete sentences <Gaviota Goff - Last Filed: 01/03/25 07:19> Auscultation: clear to auscultation bilaterally <[facility] Filed: 01/03/25 07:19> Cardio: Rate: regular rate <Gaviotacalixto Goff Filed: 01/03/25 07:19> Rhythm: regular rhythm <[facility] Filed: 01/03/25 07:19> Heart sounds: S1 normal heart sound present and S2 normal heart sound present <[facility] Filed: 01/03/25 07:19> GI: Other: dressings removed, packing removed. Incisoin is intact, shamar in place. there was scan serosanguineous drainage. no surrounding erythema <Kash Coppola PA-C Last Filed: 01/03/25 12:00> Inspection: No distended <Kash Coppola PA-C Last Filed: 01/03/25 12:00> Palpation (GI): Soft to palpation and Tenderness to palpation present (GI) (around incision) <[facility] Filed: 01/03/25 07:19> Percussion: Yes normal to percussion <[facility] Filed: 01/03/25 07:19> Auscultation: normoactive bowel sounds <[facility] Filed: 01/03/25 07:19> Skin: Other: Dressings are dry and in place. Small amount of drainage appreciated on the external dressing but does not appear to be purulent. Skin around the dressing is warm and dry to the touch. <Gaviota Goff [facility] Filed: 01/03/25 07:19> Neuro: General: patient oriented x3 <Gaviota Goff [facility] Filed: 01/03/25 07:19> Objective Data Active Medications Atorvastatin Calcium (Atorvastatin Calcium 10 Mg Tablet) 10 mg PO BEDTIME [facility] Last Admin: 01/02/25 20:21 Dose: 10 mg Documented By: TANJA Calcium Carbonate (Calcium Carbonate 750 Mg Tab.Chew) 750 mg PO Q4H PRN PRN Reason: Heartburn Heparin Sodium (Porcine) (Heparin Sodium,Porcine 5,000 Unit/Ml Vial) 5,000 unit SUBCUT Q12H [facility] Last Admin: 01/02/25 20:21 Dose: 5,000 unit Documented By: TANJA Lactated Ringer's (Lr) 1,000 mls @ 100 mls/hr IVCONT .Q10H [facility] Last Infusion: 01/03/25 06:57 Dose: Infused Documented By: BALA Acetaminophen (Ofirmev) 1,000 mg in 100 mls @ 400 mls/hr IV Q6H [facility] Last Infusion: 01/03/25 06:57 Dose: Infused Documented By: BALA Magnesium Hydroxide (Milk Of Magnesia 30 Ml Oral.Susp) 30 ml PO DAILY PRN PRN Reason: Constipation Melatonin (Melatonin 3 Mg Tablet) 6 mg PO BEDTIME PRN PRN Reason: Insomnia Morphine Sulfate (Morphine Sulfate 4 Mg/Ml Cartridge) 4 mg IVPUSH Q4H PRN; Protocol PRN Reason: Pain, Severe (Pain Scale 7-10) Last Admin: 01/03/25 03:29 Dose: 4 mg Documented By: TANJA Omeprazole (Omeprazole 20 Mg Capsule.Dr) 20 mg PO DAILY@0630 [facility] Last Admin: 01/03/25 06:09 Dose: 20 mg Documented By: TANJA Ondansetron HCl (Ondansetron Hcl 4 Mg/2 Ml Vial) 4 mg IVPUSH Q6H PRN PRN Reason: Nausea and Vomiting Last Admin: 01/02/25 11:25 Dose: 4 mg Documented By: IMAN Oxycodone HCl (Oxycodone Hcl Immed Release 5 Mg Tablet) 5 mg PO Q4H PRN PRN Reason: Pain, Moderate(Pain Scale 4-6) Sodium Chloride (0.9 % Sodium Chloride Flush 3 Ml Syringe) 3 ml IVFLUSH QSHIFT [facility] Last Admin: 01/03/25 07:03 Dose: Not Given Documented By: BALA Non-Admin Reason: IV Running <Gaviota Goff - Last Filed: 01/03/25 07:19> Labs CBC & Chem 7: 12/11/24 13:05 01/02/25 05:39 <Gaviota Goff - Last Filed: 01/03/25 07:19> Procedures Date of Service Date of Service: 01/03/25 <Gaviota Goff - Last Filed: 01/03/25 07:19> 01/03/25 <Kash Coppola PA-C - Last Filed: 01/03/25 12:00> 01/03/25 <Piotr Ash MD - Last Filed: 01/03/25 09:54> Progress Note: A&P Assessment and plan (1) Ileostomy in place: Status: Acute <Gaviota Goff - Last Filed: 01/03/25 07:19> Assessment and Plan: Passing flatus Feels well overall Good pain control Tolerating clear liquids well Soft and benign Packing removed Dressings placed Trial of her diet today Doing well overall seen and examined independently <Piotr Ash MD - Last Filed: 01/03/25 09:54> Assessment and Plan: The patient is a 59-year-old female POD2 s/p reversal of loop ileostomy secondary to previous sigmoid resection for diverticular disease on 08/16/2024. Upon entering the room, she appears to be sitting comfortably. She denies fever, chills, nausea, or vomiting. She currently rates her pain as a 5/10 and states that morphine helps control her pain better than the acetaminophen. She has been passing flatus more so than yesterday, and has been ambulating without assistance to the bathroom to urinate. She states that she has not been up and walking around much as she did not know she was allowed to do so without assistance from staff. There is a walker in the room. She has not passed a BM. She has been using her spirometry when she remembers. She is tolerating her clear liquid diet including soup broth and is interested in advancing her diet today. Abdomen is soft and benign. Otherwise she has no concerns. Continue pain management as needed Encouraged ambulation as tolerated Encouraged spirometry use Advance diet to soft foods as tolerated Continue with dressing changes <Gaviota Goff - Last Filed: 01/03/25 07:19> The patient is a 59-year-old female POD2 s/p reversal of loop ileostomy secondary to previous sigmoid resection for diverticular disease on 08/16/2024. Upon entering the room, she appears to be sitting comfortably. She denies fever, chills, nausea, or vomiting. She currently rates her pain as a 5/10 and states that morphine helps control her pain better than the acetaminophen. She has been passing flatus more so than yesterday, and has been ambulating without assistance to the bathroom to urinate. She states that she has not been up and walking around much as she did not know she was allowed to do so without assistance from staff. There is a walker in the room. She has not passed a BM. She has been using her spirometry when she remembers. She is tolerating her clear liquid diet including soup broth and is interested in advancing her diet today. Abdomen is soft and benign. Otherwise she has no concerns. Continue pain management as needed Encouraged ambulation as tolerated Encouraged spirometry use Advance diet to soft foods as tolerated Continue with dressing changes patient seen and evaluated independently, I agree with the above plan. Will advance diet today, encouraged ambulation. Abdomen is soft, tender localized to the incision sites. Incision site is clean and dry, packing was removed. This was redressed with fluff gauze, tape <Kash Coppola PA-C - Last Filed: 01/03/25 12:00> Time Spent With Patient Time: Total time managing care of this patient today ____ minutes. <Gaviota Goff - Last Filed: 01/03/25 07:19> Quality Stroke Does the patient have a stroke diagnosis?: No <Gaviota Finch Last Filed: 01/03/25 07:19> VTE Prior VTE?: No <Gaviota Goff - Last Filed: 01/03/25 07:19> VTE Risk Level:: Medical - moderate - high <Gaviota Finch Filed: 01/03/25 07:19> VTE Device Contraindication: N/A - Device Ordered <Gaviota Finch Last Filed: 01/03/25 07:19> VTE Drug Contraindication: N/A - Med Ordered <Gaviota Finch Filed: 01/03/25 07:19>
[2025-01-03 07:58] VITALS: BP 131/69; PULSE 83; RESP 16; TEMP 36.2; O2SAT 95
[2025-01-03 15:17] VITALS: BP 144/69; PULSE 96; RESP 18; TEMP 36.4; O2SAT 91
[2025-01-03] MEDS: 0.9 % Sodium Chloride Flush 3 ML SYRINGE IVFLUSH ×2 (15:44→22:59)
--- NOTE | 2025-01-03 17:01 | PM.EVENT ---
Event Note Date of Service: 01/07/25 Event Note: Seen on afternoon rounds Passing small amounts of flatus Tolerating clear liquids Abdomen is soft and benign Sore on incision Okay to try regular diet Continue pain management Ambulate more Ramos [email or web address]. Time Spent With Patient Time: Total time managing care of this patient today ____ minutes.
[2025-01-03 19:06] VITALS: BP 134/74; PULSE 100; RESP 18; TEMP 36.5; O2SAT 93
[2025-01-04 03:32] VITALS: BP 168/100; PULSE 88; RESP 20; TEMP 36.2; O2SAT 95
[2025-01-04 07:45] VITALS: BP 169/97; PULSE 95; RESP 16; TEMP 36.4; O2SAT 97
[2025-01-04] MEDS: 0.9 % Sodium Chloride Flush 3 ML SYRINGE IVFLUSH ×3 (08:10→19:56)
--- NOTE | 2025-01-04 10:01 | P.PNGS_ITS ---
Subjective Subjective Date of Service: 01/04/25 Interval history: more pain today, located at the incision site. She is experiencing a water dripping sensation from the wound but has not notice any saturation of the dressing or leaking. She has had regular diet but her appetitie is decreased. passing lots of gas, no BM. Denies nausea, vomiting, fever, chills Physical Exam 2 Vital Signs: Vital Signs: Last Vital Signs Temp 97.5 F 01/04/25 07:45 Pulse 95 01/04/25 07:45 Resp 16 01/04/25 07:45 BP 169/97 H 01/04/25 07:45 Pulse Ox 97 01/04/25 07:45 O2 Del Method Room Air 01/04/25 07:45 O2 Flow Rate 2 01/02/25 08:00 BMI result Body Mass Index 35.5 Const: General: no acute distress; No comfortable (in pain) O rientation/consciousness: patient oriented x3 Resp: Effort & Inspection: normal respiratory effort and able to speak in complete sentences GI: Other: incision site intact, staple in place. scant serosanguineous discharge on the dressing, unable to express discharge. There is one small area of erythema in the center of the incision. Inspection: No distended Palpation (GI): Soft to palpation, Tenderness to palpation present (GI) (incisional) and no guarding Neuro: General: patient oriented x3 Objective Data Active Medications Atorvastatin Calcium (Atorvastatin Calcium 10 Mg Tablet) 10 mg PO BEDTIME [facility] Last Admin: 01/03/25 21:36 Dose: 10 mg Documented By: LYNDON Calcium Carbonate (Calcium Carbonate 750 Mg Tab.Chew) 750 mg PO Q4H PRN PRN Reason: Heartburn Docusate Sodium (Docusate Sodium 100 Mg Capsule) 100 mg PO BID [facility] Last Admin: 01/04/25 08:08 Dose: 100 mg Documented By: BALA Heparin Sodium (Porcine) (Heparin Sodium,Porcine 5,000 Unit/Ml Vial) 5,000 unit SUBCUT Q12H [facility] Last Admin: 01/03/25 21:36 Dose: 5,000 unit Documented By: LYNDON Acetaminophen (Ofirmev) 1,000 mg in 100 mls @ 400 mls/hr IV Q6H [facility] Last Infusion: 01/04/25 05:24 Dose: Infused Documented By: DORIAN Magnesium Hydroxide (Milk Of Magnesia 30 Ml Oral.Susp) 30 ml PO DAILY PRN PRN Reason: Constipation Melatonin (Melatonin 3 Mg Tablet) 6 mg PO BEDTIME PRN PRN Reason: Insomnia Morphine Sulfate (Morphine Sulfate 4 Mg/Ml Cartridge) 4 mg IVPUSH Q4H PRN; Protocol PRN Reason: Pain, Severe (Pain Scale 7-10) Last Admin: 01/03/25 03:29 Dose: 4 mg Documented By: TANJA Omeprazole (Omeprazole 20 Mg Capsule.Dr) 20 mg PO DAILY@0630 [facility] Last Admin: 01/04/25 05:46 Dose: 20 mg Documented By: DORIAN Ondansetron HCl (Ondansetron Hcl 4 Mg/2 Ml Vial) 4 mg IVPUSH Q6H PRN PRN Reason: Nausea and Vomiting Last Admin: 01/04/25 09:34 Dose: 4 mg Documented By: BALA Oxycodone HCl (Oxycodone Hcl Immed Release 5 Mg Tablet) 5 mg PO Q4H PRN PRN Reason: Pain, Moderate(Pain Scale 4-6) Simethicone (Simethicone 80 Mg Tab.Chew) 80 mg PO QIDWMHS PRN PRN Reason: Gas Last Admin: 01/03/25 18:18 Dose: 80 mg Documented By: LEFEBKALLI Sodium Chloride (0.9 % Sodium Chloride Flush 3 Ml Syringe) 3 ml IVFLUSH [facility] Last Admin: 01/04/25 08:10 Dose: 3 ml Documented By: BALA Labs 12/11/24 13:05 01/02/25 05:39 Procedures Date of Service Date of Service: 01/04/25 Progress Note: A&P Assessment and plan (1) Ileostomy in place: Status: Acute Plan The patient is a 59-year-old female POD2 s/p reversal of loop ileostomy secondary to previous sigmoid resection for diverticular disease on 08/16/2024. pateint appears more uncomfortable today, dealing with more pain today. partner is in the room, agrees that she has been struggling with more pain. She had diet advanced, is tolerating fairly well, low appetite but denies n/v after eating. on exam, the abdomen remains soft, tender mostly around the incision. The incision itself does appear intact, clean. There is a small 2 cm by 2 cm area of erythema in the center of the incision site but there was no discharge appreciated or able to be expressed. The area appears dry and there was only scant serosanguenious discharge on the dressing. I was unable to appreciate a cause for this fluid leaking sensation that she is feeling. This was left without a dressing. will add IV zosyn for empiric abx coverage for possible infection of incision site Continue pain management as needed Encouraged ambulation as tolerated Encouraged spirometry use continue regular diet if pain more controlled, wound not concerning for infectoin can likely be discharge tomorrow Time Spent With Patient Time: Total time managing care of this patient today ____ minutes. Quality Stroke Does the patient have a stroke diagnosis?: No VTE Prior VTE?: No VTE Risk Level:: Medical - moderate - high VTE Device Contraindication: N/A - Device Ordered VTE Drug Contraindication: N/A - Med Ordered
--- NOTE | 2025-01-04 15:10 | MHC.CM.PN ---
EMR REVIEWED. PT IS POD#2 REVERSAL OF ILEOSTOMY AND HAVING INCREASED PAIN TODAY. CM WILL CONTINUE TO FOLLOW FOR ANY CHANGE TO DC PLAN.
[2025-01-04 15:25] VITALS: BP 145/75; PULSE 102; RESP 18; TEMP 36.7; O2SAT 94
[2025-01-04 19:18] VITALS: BP 158/90; PULSE 94; RESP 16; TEMP 36.5; O2SAT 95
[2025-01-05 03:39] VITALS: BP 178/91; PULSE 88; RESP 16; TEMP 36.4; O2SAT 95
[2025-01-05 07:50] VITALS: BP 149/75; PULSE 89; RESP 16; TEMP 36.2; O2SAT 94
[2025-01-05] MEDS: 0.9 % Sodium Chloride Flush 3 ML SYRINGE IVFLUSH (09:01)
[2025-01-05 10:44] LABS: MANUAL DIFF FLAG NO
[2025-01-05 10:58] LABS: Hematocrit 30.6 % (37.0-47.0); Hemoglobin 9.9 g/dl (12.0-16.0); Imm Gran Abs Auto 0.08 X10*3/uL (0.00-0.03); Imm Gran Pct Auto 0.7 % (0.0-0.4); Lymphocytes Absolute Auto 2.1 X10*3/uL (1.2-4.9); Mean Corpuscular HGB Conc 32.4 g/dl (31.0-35.0); Mean Corpuscular Hemoglobin 26.7 pg (27.0-33.0); Mean Corpuscular Volume 82.5 fL (80.0-98.0); NRBC Abs Auto 0.000 X10*3/uL (0.0-0.012); NRBC Pct Auto 0.0 /100WBC (0.0-0.2); Platelet Count 319 X10*3/uL (160-400); Red Blood Count 3.71 X10*6/uL (4.20-5.50); White Blood Count 11.2 X10*3/uL (4.8-10.8)
--- NOTE | 2025-01-05 13:51 | PM.DS ---
DS: Providers Provider Date of Service: 01/05/25 Date of admission: 01/01/25 10:31 Date of discharge: 01/05/25 Primary care physician: Isaac Field MD Admitting clinician: Yvette Martinez Attending physician on discharge: Yvette Martinez DS: Diagnosis Discharge Diagnosis (1) Ileostomy in place: Status: Acute DS: Summary Status at Discharge Functional status at discharge: independent ambulation Overall status at discharge: patient is progressing back to baseline Time Attestation Total time managing care of this patient today: 30 mintues. Discharge Coordination Time (in mins): 30 Quality: Safe Use of Opioids Does Pt have an Active Cancer Diagnosis on the Problem List?: No Quality: Stroke Does the patient have a stroke diagnosis?: No Physical Exam Vital Signs: Vital Signs: Last Vital Signs Temp 97.1 F 01/05/25 07:50 Pulse 89 01/05/25 07:50 Resp 16 01/05/25 07:50 BP 149/75 H 01/05/25 07:50 Pulse Ox 94 01/05/25 07:50 O2 Del Method Room Air 01/05/25 07:50 O2 Flow Rate 2 01/02/25 08:00 BMI result Body Mass Index 35.5 Const: General: cooperative, healthy appearing and comfortable Resp: Effort & Inspection: normal respiratory effort GI: Other: abdomen soft = tender around the incision right lower quadrant - deep wound area probed and some clear fluid - erythema from yesterday much improved DS: Data Data Completed and Pending Completed studies during hospitalization [Text1]: Pending at discharge 01/01/25 12:01 Surgical [PTH] Routine Procedures Bypass Ileum to Cutaneous, Open Approach (08/16/24) Excision of Sigmoid Colon, Open Approach (08/16/24) Introduction of Anesthetic Agent into Peripheral Nerves and Plexi, Percutaneous Approach (08/16/24) Release Peritoneum, Open Approach (08/16/24) Labs on day of discharge: Laboratory Results - last 24 hr 01/05/25 10:14 WBC 11.2 H RBC 3.71 L Hgb 9.9 L Hct 30.6 L MCV 82.5 MCH 26.7 L MCHC 32.4 RDW 15.2 Plt Count 319 MPV 8.7 L Immature Gran % (Auto) 0.7 H Neut % (Auto) 71.3 Lymph % (Auto) 18.3 L [place] % (Auto) 4.5 Eos % (Auto) 4.8 H Baso % (Auto) 0.4 Lymph # (Auto) 2.1 [place] # (Auto) 0.5 Eos # (Auto) 0.5 H Baso # (Auto) 0.0 Abs Immat Gran (auto) 0.08 H Absolute Neuts (auto) 8.0 Absolute Nucleated RBC 0.000 Nucleated RBC % (auto) 0.0 Discharge Plan Discharge Anticipated Discharge Date/Time: 01/05/25 13:49 Patient Disposition: Home, Self-Care Discharge Diagnosis: reversal of loop ileostomy Referrals: Piotr Ash MD [Physician, General Surgery] - 2 Months Po,Isaac Sequeira MD [Primary Care Provider, Internal Medicine] - 1 Week Discharge Medications: New oxycodone-acetaminophen 5-325 mg tablet 1 tab PO Q6H PRN (Reason: pain) Qty: 25 0RF Rx Instructions: Partial Fill upon patient request. ibuprofen 600 mg tablet 600 mg PO Q6H PRN (Reason: pain) Qty: 25 0RF amoxicillin-pot clavulanate [Augmentin] 500-125 mg tablet 1 tab PO TID Qty: 15 0RF Continued pantoprazole 40 mg tablet,delayed release (DR/EC) 40 mg PO DAILY@0630 Qty: 90 3RF losartan 100 mg tablet 100 mg PO BEDTIME Qty: 90 0RF dicyclomine 10 mg capsule 10 mg PO BID PRN (Reason: for abdominal pain) Qty: 180 1RF docusate sodium 100 mg capsule 200 mg PO BID PRN (Reason: Constipation) simvastatin 20 mg tablet 20 mg PO BEDTIME Qty: 90 3RF ondansetron 4 mg tablet,disintegrating 4 mg PO Q8H PRN (Reason: nausea and vomiting) Qty: 20 0RF Discharge Orders: Discharge Order (Routine); Ordered 01/05/25 Ordered By: Yvette Martinez Diet: Advance to usual diet Activity on Discharge: No heavy lifting Stand Alone Forms: Patient Portal Discharge page Print Language: Yoruba Care Plan Goals: Return to baseline Health Concerns: Recent reversal of a loop ileostomy Plan of Treatment: Oral pain meds Follow up in the office Assessment: Doing well overall
--- NOTE | 2025-01-05 14:16 | MHC.CM.PN ---
PT CLEARED TO DC HOME TODAY WITH NO SERVICES VIA PRIVATE TRANSPORT
[2025-01-05 14:30] VITALS: BP 176/80; PULSE 96; RESP 16; TEMP 36.1; O2SAT 98
--- NOTE | 2025-01-05 14:42 | PC.NURSE ---
Pt d/c to home with family and will resume regular meds, she will follow d/c instructions and follow up with her primary including dsicussion about BP meds.
== END 2025-01-05 14:45 | disposition home or self-care (01) | DRG 230 ==
LOC: HO.SSSA 10:45 → HO.S3 12:56
PROVIDERS: Nurse Practitioner; Physician Assistant Surgical; Surgery; Admitting Provider Surgery; PCP Internal Medicine; Visit Provider Surgery
PROC: 0DQB0ZZ Repair Ileum, Open Approach (ICD-10-PCS; CPT 44620; principal; 2025-01-01 11:10)
DX: Z43.2 Encounter for attention to ileostomy (principal); Z79.899 Other long term (current) drug therapy
CPT/HCPCS: 36415; 80048; 85025; 85027; 88304; J0131; J0690; J1100; J1171; J1644; J2003; J2250; J2270; J2405; J2543; J2704; J2795; J3010; J7120

== ENCOUNTER → 2025-01-01 10:31 | Outpatient (BNV) | payer BC, SELFPAY | PROVIDERS: Admitting Provider Surgery; PCP Internal Medicine; Visit Provider Surgery | DX: Z93.2 Ileostomy status (principal) | CPT/HCPCS: 44625; 99024; 99499 ==

== ENCOUNTER 2025-01-11 08:46 | Outpatient (AMB) | payer BC, SELFPAY ==
--- NOTE | 2025-01-11 08:52 | A.OFFPC_ITS ---
Vital Signs 3 01/11/25 08:55 Height 5 ft 2 in Weight 166 lb 6 oz BMI 30.4 BP 132/84 Blood Pressure Location Lt brachial Position Sitting Pulse 81 Pulse Source Pulse Oximeter Pulse Oximetry (%) 97 Oxygen Delivery Method Room Air Intake Visit Reasons: [facility] 01/05 reverse of ileostomy [employer] Supervisor Required: No Accompanied by: Self / Same As Patient Allergies lisinopril Adverse Reaction (Intermediate, Verified 01/11/25 09:12) Cough Medication List - Last Reconciled 01/11/25 by Danielle Pace PA-C amoxicillin-pot clavulanate 500-125 mg (Augmentin) 1 tab PO TID dicyclomine 10 mg PO BID PRN docusate sodium 200 mg PO BID PRN ibuprofen 600 mg PO Q6H PRN losartan 100 mg PO BEDTIME ondansetron 4 mg PO Q8H PRN oxycodone-acetaminophen 5-325 mg 1 tab PO Q6H PRN pantoprazole 40 mg PO DAILY@0630 simvastatin 20 mg PO BEDTIME Tobacco use date assessed: 01/11/25 Dental Screening Dental Screen Date: 01/11/25 Did you have a dental visit in the last 12 months?: No Did you have a dental problem in the last 6 months where you did not have access to dental care?: No Was dental information given to patient?: No HPI [facility] 01/05 reverse of ileostomy 2 HPI0 Details 59-year-old female with past medical his tory of GERD, hypercholesterolemia, hypertension, vitamin-D deficiency, diabetes mellitus, hyperparathyroidism last seen 08/2024 coming in for hospital follow up. In review of the notes, patient was [place] [facility] [place] for reversal of loop ileostomy secondary to previous sigmoid resection for diverticular disease 08/16/2024. She was doing well postoperatively and diet was advanced slowly and being tolerated and discharged home 01/05/2025. Presenting with postoperative pain following surgical reversal. She underwent surgical reversal on the , performed by Dr. Ash, and experienced significant postoperative pain, particularly on the first day in the hospital. She reports a sensation of a ball on one side and concerns for hernia however examination suggests possibly scar tissue or inflammation. The patient has been managing her diet with small meals and reports normal bowel movements with the aid of stool softeners. She denies any blood in the stool, diarrhea, or pain during bowel movements. She is using occasional Tylenol and ibuprofen as needed for pain TCM 2 TCM Information0 Date of Discharge 01/04/25 Discharged From [facility] Interactive Contact Date (Reference documentation from this date) 01/01/25 [facility] Medical History Numbness Colostomy in place Ileostomy in place Habitual snoring Dysuria Diverticulitis large intestine w/o perforation or abscess w/o bleeding Hypokalemia Anemia Impaired glucose tolerance Acute allergic reaction Fatty liver Irritable bowel syndrome Hypertension History of renal calculi Hypercholesterolemia GERD (gastroesophageal reflux disease) Obesity (BMI 30-39.9) Surgical History H/O exploratory laparotomy (08/16/24) Hx of section History of diverticulitis Hx of colonoscopy History of esophagogastroduodenoscopy (EGD) Hx of arthroscopy of left knee Hx of arthroscopy of right knee History of lithotripsy Hx of appendectomy H/O tubal ligation History of abdominal hysterectomy Family History Father Brain tumor Mother Hypertension CVD (cardiovascular disease) Social History Household Members: Spouse Household Members Other:: at bedside Housing: House Are you a primary customer care coordinator to a significant other at home: No Do you presently have visiting nurse or other home services: No Alcohol intake: never Comment: COUNTS CORRECT Patient Tobacco Use Status: Never used Tobacco e-Cigarette/Vaping Use: Never Used Second Hand Smoke Exposure: No Substance Use Type: Sedatives service: No Current occupational status: employed Current occupational exposures/hazards: No Cognitive needs: No Hearing needs: No Vision needs: Yes Questionnaire PHQ-9 Over the last 2 weeks, how often have you been bothered by any of the following problems? 1. Little interest or pleasure in doing things: not at all 2. Feeling down, depressed, or hopeless: not at all 3. Trouble falling or staying asleep, or sleeping too much: not at all 4. Feeling tired or having little energy: not at all 5. Poor appetite or overeating: not at all 6. Feeling bad about yourself - or that you are a failure or have let yourself or your family down: not at all 7. Trouble concentrating on things, such as reading the newspaper or watching television: not at all 8. Moving or speaking so slowly that other people could have noticed. Or the opposite - being so fidgety or restless that you have been moving around a lot more than usual: not at all 9. Thoughts that you would be better off or of hurting yourself in some way: not at all Total score: 0 Depression Screening Interpretation: Negative Depression Screening Done: Yes Source: Developed by Drs. Alan Pang, Kay Garza, Jesús Berger and colleagues, with an educational tejas from [employer]. Thrive Questionnaire Date Thrive assessed: 01/02/25 AUDIT C Alcohol Use Questionnaire (AUDIT-C) 3. How often do you have six or more drinks on one occasion?: Never Total Score: 0 JENNIFER-7 AMB Questionnaire JENNIFER-7 Date JENNIFER - 7 assessed: 01/11/25 Feeling nervous, anxious, or on edge: 0 = Not at all Not being able to stop or control worryin = Not at all Worrying too much about different things: 0 = Not at all Trouble relaxin = Not at all Being so restless that it is hard to sit still: 0 = Not at all Becoming easily annoyed or irritable: 0 = Not at all Feeling afraid as if something awful might happen: 0 = Not at all Total JENNIFER-7 score (0-4 normal; 5-9 mild; 10-14 moderate; 15-21 severe): 0 Source: Developed by Drs. Alan Pang, Kay Garza, Jesús Berger and colleagues, with an educational tejas from [employer]. Review of Systems Const Denies body aches, Denies fatigue, Denies fever(s), Denies frequent falls, Denies headache(s) and Denies weakness Eyes Reports no additional complaints and Denies change in vision ENT Denies dysphagia, Denies dizziness, Denies facial pain, Denies headache(s), Denies nasal congestion and Denies odynophagia Card Denies chest pain, Denies syncope, Denies irregular heart rhythm, Denies leg edema, Denies lightheadedness and Denies dyspnea Resp Denies cough and Denies dyspnea GI Denies constipation, Denies dysphagia, Denies dyspepsia, Denies diarrhea, Denies nausea, Denies odynophagia and Denies vomiting Denies urinary frequency, Denies dysuria, Denies urinary hesitancy and Denies urinary urgency Musc Denies back pain and Denies myalgias Skin/Breast Reports system reviewed and no additional complaints, except as documented Neuro Denies dizziness, Denies syncope, Denies frequent falls, Denies headache(s) and Denies weakness Psych Reports no additional complaints Endo Denies fatigue Physical exam (Primary Care) Vital Signs: Last Vital Signs Pulse 81 01/11/25 08:55 BP 132/84 01/11/25 08:55 Pulse Ox 97 01/11/25 08:55 Oxygen Delivery Method Room Air 01/11/25 08:55 BMI result Body Mass Index 30.4 Tobacco/Smoking Status: Tobacco use Status Tobacco use date assessed 01/11/25 01/11/25 09:02 Patient Tobacco Use Status Never used Tobacco 01/11/25 09:02 e-Cigarette/Vaping Use Never Used 01/11/25 09:02 PHQ-9: PHQ-9 Score PHQ-9: Total score 0 01/11/25 09:17 Depression Screening Interpretation: Negative Thrive Assessment: Date of Thrive Assessment Date Thrive assessed 01/02/25 01/11/25 09:02 Const General: cooperative, healthy appearing, comfortable and no acute distress Orientation/consciousness: patient oriented x3 HENMT Head: Yes normocephalic Ears: hearing grossly normal bilaterally General nose exam: Normal external nose present Eyes General: appearance normal, both eyes and all related structures Conjunctivae: conjunctivae normal Neck Neck: Yes full ROM and Yes no lymphadenopathy Resp Effort & Inspection: normal respiratory effort Auscultation: clear to auscultation bilaterally, no crackles, no rales, no rhonchi and no wheezes Cardio Rate: regular rate Rhythm: regular rhythm GI Abdomen image: 2 1. Surgical incision clean, dry, and intact without drainage, redness or warmth. [place] in place. No surrounding erythema or ecchymosis Skin General skin exam: no rashes or lesions noted Neuro General: patient oriented x3 Gait exam (Neuro): Normal gait present Extrem General: Yes normal to inspection, Yes full ROM and No edema Psych Affect: normal affect Attitude: cooperative Insight: Good insight present (Psych) Judgement: Good judgement present (Psych) Results AMB Hemoglobin A1c 2 AMB Hemoglobin A1c 6.6 % Last Edit by Eli Gutierrez MA on 01/11/25 09:21 Coding Level of Care Code TCM Mod MDM <= 7 Days Complex EM visit Add On G2211 Diagnoses Ileostomy in place Z93.2 Primary hypertension I10 Hypertension type: primary hypertension Type 2 diabetes mellitus with hyperglycemia E11.65 Assessment & Plan Assessment & Plan (1) Ileostomy in place: Comment: Ileostomy reversal December [address]24 Dr. Ash Code(s): Z93.2 - Ileostomy status Category: Medical Plan: She will continue to follow with the surgeon and has a postop appointment 01/14/2025. Currently she is doing well and no signs of infection around the incision site and denies any fevers at this time. She has resumed a normal diet and is eating small meals and denies any constipation, bloody stools or diarrhea at this time. Pain is well managed with the occasional use of Tylenol and ibuprofen at this time. Continue to follow with General surgery. (2) Hypertension: Code(s): I10 - Essential (primary) hypertension Category: Medical Qualifiers: Hypertension type: primary hypertension Qualified Code(s): I10 - Essential (primary) hypertension Plan: Continue on current blood pressure medication. Avoid salt intake and encourage healthy diet and regular exercise. (3) Type 2 diabetes mellitus with hyperglycemia: Comment: [facility] Code(s): E11.65 - Type 2 diabetes mellitus with hyperglycemia Category: Medical Plan: Decrease the amount of carbohydrates such as pasta, bread, rice, and potatoes and limit the amount of sweets. Although fruits are generally healthy they should be eaten in moderation as they are still high in sugar. Hemoglobin A1c goal of less that 7%. A1c in the clinic 6.6% today no change in medication at this time. Plan The patient will continue to manage postoperative pain with Tylenol and ibuprofen as needed, while monitoring for any signs of complications such as significant bruising or infection at the incision site. The patient's Type 2 Diabetes Mellitus will be monitored with regular A1c checks, given the recent increase in levels, and dietary management will continue with small meals to aid in recovery and glycemic control. Follow-up with the surgeon is scheduled to assess the surgical site and address any concerns regarding the sensation of a ball on one side, which is likely due to scar tissue and inflammation. This note was constructed using voice recognition software. While every effort has been made to ensure accuracy and senior business architect, still areas may have been included sometimes these areas may affect the content or meeting of the given symptoms. Total time spent caring for the patient today was 20 minutes. This includes time spent before the visit reviewing the chart, time spent during the visit, and time spent after the visit and documentation. Patient was informed and verbally consented to the use of an ambient scribe for clinic note documentation during this visit. Orders: Orders 2 AMB Hemoglobin A1c Today E11.65 - Type 2 diabetes mellitus with hyperglycemia Medications: Discontinued 2 amoxicillin-pot clavulanate 500-125 mg (Augmentin) Discontinued Reason: Patient no longer taking 1 tab PO TID 15 tabs 0RF
[2025-01-11 08:55] VITALS: BP 132/84; PULSE 81; O2SAT 97; BMI 30.4
--- OUTSIDE RECORDS SUMMARY | 2025-01-11 08:59 | XMS_ITS | Patient Health Record ---
Author Organization [facility] Address [address] [place] [address] Care Team Providers Care Sports Nutritionist Name Role Phone Alan Christensen Unavailable [phone] Reason For Referral No Information Medications Medication SIG (Take, Route, Frequency, Duration) Notes Start Date End Date Status PriLOSEC Active Bentyl 10 MG 1 or 2 capsules Oral ly Four times a day as needed for abdominal pain for 30 day(s) 03/17/2011 Active Problems Problem Type SNOMED Code ICD Code Onset Dates Problem Status W/U Status Risk Notes Problem Left upper quadrant pain (993441622) Abdominal pain, left upper quadrant (789.02) Active confirmed Plan Of Treatment No Information Insurance Providers Payer Name Payer Address Payer Phone Subscriber Number Group Number Insured Name Patient Relationship to Insured Coverage Start Date Coverage End Date [facility] [address] [place] [phone] [id number] ARGELIA RUFFIN Self - patient is the insured Medical (General) History Medical History History ICD Code Denies NC,DM,CVA,Lung disease,renal dise ase Surgical History Surgery Date(Month/Year) section appendectomy hysterectomy knee surgery shock wave lithotripsy for kidney stones
== END 2025-01-11 09:45 | disposition home or self-care (01) ==
LOC: HO.HMCH 08:46
PROVIDERS: PCP Internal Medicine
DX: I10 Essential (primary) hypertension (principal); Z93.2 Ileostomy status; E11.65 Type 2 diabetes mellitus with hyperglycemia

== ENCOUNTER → 2025-01-11 08:46 | Outpatient (BNVA) | payer BC, SELFPAY | PROVIDERS: PCP Internal Medicine | DX: I10 Essential (primary) hypertension (principal); K21.9 Gastro-esophageal reflux disease without esophagitis; E78.00 Pure hypercholesterolemia, unspecified; E55.9 Vitamin D deficiency, unspecified; E21.3 Hyperparathyroidism, unspecified; E11.65 Type 2 diabetes mellitus with hyperglycemia; Z93.2 Ileostomy status | CPT/HCPCS: 83036 ==

== ENCOUNTER 2025-01-14 09:57 | Outpatient (AMB) | payer BC, SELFPAY ==
--- NOTE | 2025-01-14 09:59 | A.OFFVIS_ITS ---
Vital Signs 01/14/25 10:05 Height 5 ft 2 in Weight 164 lb BMI 30.0 BP 152/84 H Blood Pressure Location Rt brachial Position Sitting Pulse 92 Intake Visit Reasons: s/p Reversal of loop ileostomy poss laparotomy Intake Note: Patient here s/p reversal of loop ileostomy, extensive lysis of adhesions. Patient c/o: tenderness at incision site. [place] due to be removed today. Surgery: 01-01-2025 Cook Fish Eggs Required: No Accompanied by: Self / Same As Patient Allergies lisinopril Adverse Reaction (Intermediate, Verified 01/14/25 10:05) Cough HPI HPI s/p Reversal of loop ileostomy poss laparotomy: Details: She underwent reversal of a loop ileostomy last 01/01/2025. She had sigmoid resection with a protective loop ileostomy with Dr. Spangler last July, She has good oral intake. She has good bowel movements. [facility] Medical History (Updated 01/14/25 @ 10:04 by Piotr Ash MD) Ileostomy in place Numbness Colostomy in place Habitual snoring Dysuria Diverticulitis large intestine w/o perforation or abscess w/o bleeding Hypokalemia Anemia Impaired glucose tolerance Acute allergic reaction Fatty liver Irritable bowel syndrome Hypertension History of renal calculi Hypercholesterolemia GERD (gastroesophageal reflux disease) Obesity (BMI 30-39.9) Surgical History History of reversal of ileostomy (01/01/25) H/O exploratory laparotomy (08/16/24) Hx of section History of diverticulitis Hx of colonoscopy History of esophagogastroduodenoscopy (EGD) Hx of arthroscopy of left knee Hx of arthroscopy of right knee History of lithotripsy Hx of appendectomy H/O tubal ligation History of abdominal hysterectomy Family History Father Brain tumor Mother Hypertension CVD (cardiovascular disease) Social History Household Members: Spouse Household Members Other:: at bedside Housing: House Are you a primary acute care nurse practitioner to a significant other at home: No Do you presently have visiting nurse or other home services: No Alcohol intake: never Comment: COUNTS CORRECT Patient Tobacco Use Status: Never used Tobacco e-Cigarette/Vaping Use: Never Used Second Hand Smoke Exposure: No Substance Use Type: Sedatives service: No Current occupational status: employed Current occupational exposures/hazards: No Cognitive needs: No Hearing needs: No Vision needs: Yes Review of Systems Const Denies chills and Denies fever(s) Card Denies chest pain Resp Denies cough GI Denies abdominal pain Physical Exam Const General: comfortable and no acute distress GI Other: Soft, incision clean and dry, shamar in place, no evidence of infection Assessment & Plan Assessment & Plan (1) Ileostomy in place: Comment: Ileostomy reversal December 2024 Dr. Ash Code(s): Z93.2 - Ileostomy status Category: Medical Plan: Status post reversal. She is doing well. I removed her skin shamar. She has good GI functions. There is no evidence of the wound infection. I advised her to avoid lifting anything more than 20 lb for another month. She can follow up on a p.r.n. basis. Coding Level of Care Code Global (64762) Diagnoses Ileostomy in place Z93.2
[2025-01-14 10:05] VITALS: BP 152/84; PULSE 92
== END 2025-01-14 10:12 | disposition home or self-care (01) ==
LOC: HO.HGS 09:57
PROVIDERS: PCP Internal Medicine; Visit Provider Surgery
DX: Z93.2 Ileostomy status (principal)
CPT/HCPCS: 99024

== ENCOUNTER 2025-01-29 10:16 | Outpatient (REF) | payer BC, SELFPAY ==
--- NOTE | ~2025-01-29 | US_ITS ---
EXAMINATION: US RETROPERITONEAL LIMITED (RENAL ONLY) CLINICAL INFORMATION: Renal calculus.. COMPARISON: February 28, 2024 TECHNIQUE: Real-time ultrasound kidneys using grayscale technique. FINDINGS: RIGHT KIDNEY: 11 x 5 x 6 cm (SAG x AP x TRV). Normal echotexture. Normal renal cortical thickness. No hydronephrosis. No gross solid or cystic lesion. LEFT KIDNEY: 10 x 5 x 5 cm (SAG x AP x TRV). Normal echotexture. Normal renal cortical thickness. No hydronephrosis. No gross solid or cystic lesion. US/US renal BI IMPRESSION: No hydronephrosis. No gross nephrolithiasis.. Electronically signed by: Mg Singh MD 01/29/2025 10:51 AM EDT
--- OUTSIDE RECORDS SUMMARY | 2025-01-29 12:04 | XMS_ITS | Patient Health Record ---
Author Organization [facility] Address [address] [place] [address] Care Team Providers Care Coater Carbon Paper Name Role Phone Alan Christensen Unavailable [phone] Reason For Referral No Information Medications Medication SIG (Take, Route, Frequency, Duration) Notes Start Date End Date Status PriLOSEC Active Bentyl 10 MG 1 or 2 capsules Oral ly Four times a day as needed for abdominal pain for 30 day(s) 03/17/2011 Active Problems Problem Type SNOMED Code ICD Code Onset Dates Problem Status W/U Status Risk Notes Problem Left upper quadrant pain (699043343) Abdominal pain, left upper quadrant (789.02) Active confirmed Plan Of Treatment No Information Insurance Providers Payer Name Payer Address Payer Phone Subscriber Number Group Number Insured Name Patient Relationship to Insured Coverage Start Date Coverage End Date [facility] [address] [place] [phone] [id number] ARGELIA RUFFIN Self - patient is the insured Medical (General) History Medical History History ICD Code Denies MD,DM,CVA,Lung disease,renal dise ase Surgical History Surgery Date(Month/Year) section appendectomy hysterectomy knee surgery shock wave lithotripsy for kidney stones
== END 2025-01-29 10:17 | disposition home or self-care (01) ==
LOC: HO.US 10:16
PROVIDERS: PCP Internal Medicine; Visit Provider Urology
DX: R31.29 Other microscopic hematuria (principal); Z87.442 Personal history of urinary calculi
CPT/HCPCS: 76775

== ENCOUNTER → 2025-01-29 10:21 | Outpatient (BNV) | payer BC, SELFPAY | PROVIDERS: PCP Internal Medicine; Visit Provider Radiology Diagnostic Radiology | DX: N20.0 Calculus of kidney (principal) | CPT/HCPCS: 76775 ==

== ENCOUNTER 2025-02-06 15:21 | Outpatient (AMB) | payer BC, SELFPAY ==
--- NOTE | 2025-02-06 15:23 | MHC.OFFVIS ---
Vital Signs 02/06/25 15:24 Height 5 ft 2 in Weight 166 lb BMI 30.4 BP 140/92 H Blood Pressure Location Rt brachial Position Sitting Pulse 92 Pulse Source Pulse Oximeter Pulse Oximetry (%) 95 Oxygen Delivery Method Room Air Intake Visit Reasons: Ileostomy + CIC mgmt. 3 mos FUV. Intake Note: ESTABLISHED PATIENT for Constipation + chronic abd pain mgmt. Chief Complaint; C.O. RUQ pain and constipation despite any recent interventions. Pt states that she has also taken some of her linzess 145 which she takes PRN and typically has success with; however, she took another dose this morning and still has not had a BM. Cupola Melting Supervisor Required: No Accompanied by: Self / Same As Patient Allergies lisinopril Adverse Reaction (Intermediate, Verified 02/28/25 15:56) Cough HPI HPI Ileostomy + CIC mgmt. 3 mos FUV.: Details: LAST VISIT: GERD (gastroesophageal reflux disease) S/P colon resection History of diverticulitis Diverticular disease Ileostomy in place Constipation Epigastric abdominal pain Plan Patient reports increased pain throughout her whole abdomen. Patient reports that she feels that she has to defecate and push. Patient has appointment for CT scan November 21. Given her symptoms are getting worse we will send her for urgent CT. New order placed in the computer. Patient has tenderness throughout her whole abdomen. Denies any fever or chills. Good bowel sounds surrounding that ileostomy stoma. No tenderness noted. Stool brown in the bag. Patient will continue her diet. Avoid dietary triggers. Continue pantoprazole. I will see her in 3 months, sooner on as needed basis. Patient is to follow-up with her surgeon after she gets her CT scan. Patient is agreeable to this plan and verbalizes understanding of instructions. She was given the opportunity to ask questions and all questions answered. ? Thank you for allowing me to participate in her care Orders CT abdomen pelvis w IV con Today R10.9 TODAY'S VISIT: Patient is here today for follow-up. Patient reports that she has been having increased abdominal pain. She does admits of being constipated. States that Lineegoes is no longer working and she only takes it as needed. Patient is not on any other bowel management. Patient reports no nausea or vomiting. Denies melena, hematochezia. Denies any fever or chills. Has seen her surgeon end of December and has no further follow-up appointment. Patient feels area around her incision (old ileostomy) sore. Feels like she might have a hernia. Patient reports that she is moving her bowels, however as mentioned above she does not feel like she empties them completely. Patient has been having trouble with constipation for a long time. [facility] Medical History Ileostomy in place Numbness Colostomy in place Habitual snoring Dysuria Diverticulitis large intestine w/o perforation or abscess w/o bleeding Hypokalemia Anemia Impaired glucose tolerance Acute allergic reaction Fatty liver Irritable bowel syndrome Hypertension History of renal calculi Hypercholesterolemia GERD (gastroesophageal reflux disease) Obesity (BMI 30-39.9) Surgical History History of reversal of ileostomy (01/01/25) H/O exploratory laparotomy (08/16/24) Hx of section History of diverticulitis Hx of colonoscopy History of esophagogastroduodenoscopy (EGD) Hx of arthroscopy of left knee Hx of arthroscopy of right knee History of lithotripsy Hx of appendectomy H/O tubal ligation History of abdominal hysterectomy Family History Father Brain tumor Mother Hypertension CVD (cardiovascular disease) Social History Household Members: Spouse Household Members Other:: at bedside Housing: House Are you a primary hearing care practitioner to a significant other at home: No Do you presently have visiting nurse or other home services: No Alcohol intake: never Comment: COUNTS CORRECT Patient Tobacco Use Status: Never used Tobacco e-Cigarette/Vaping Use: Never Used Second Hand Smoke Exposure: No Substance Use Type: Sedatives service: No Current occupational status: employed Current occupational exposures/hazards: No Cognitive needs: No Hearing needs: No Vision needs: Yes Review of Systems Const Denies weight gain and Denies weight loss ENT Reports no additional complaints, Denies dysphagia and Denies odynophagia Card Reports no additional complaints Resp Reports no additional complaints GI Reports abdominal pain, Denies belching, Denies melena, Reports bloating, Denies change in bowel habits, Reports constipation, Denies dysphagia, Denies excessive flatus, Denies dyspepsia, Denies heartburn, Denies diarrhea, Denies loose stools, Denies nausea, Denies odynophagia and Denies vomiting Reports no additional complaints Musc Reports no additional complaints Neuro Reports no additional complaints Psych Reports no additional complaints Endo Reports no additional complaints Physical Exam Vital Signs: Last Vital Signs Pulse 92 02/06/25 15:24 BP 140/92 H 02/06/25 15:24 Pulse Ox 95 02/06/25 15:24 Oxygen Delivery Method Room Air 02/06/25 15:24 BMI result Body Mass Index 30.4 Const General: comfortable and no acute distress Orientation/consciousness: patient oriented x3 Neck Neck: Yes no lymphadenopathy Resp Effort & Inspection: normal respiratory effort Auscultation: clear to auscultation bilaterally Cardio Rhythm: regular rhythm GI Other: Status post ileostomy reversal Inspection: No abdominal wall ecchymosis, No Abdominal wall edema and No distended Palpation (GI): Soft to palpation, nontender and no guarding General: Yes no CVA tenderness Back/Spine/Pelvis Back: no CVA tenderness Neuro General: patient oriented x3 Assessment & Plan Assessment & Plan (1) GERD (gastroesophageal reflux disease): Code(s): K21.9 - Gastro-esophageal reflux disease without esophagitis Category: Medical Qualifiers: Esophagitis presence: without esophagitis Qualified Code(s): K21.9 - Gastro-esophageal reflux disease without esophagitis (2) Constipation: Code(s): K59.00 - Constipation, unspecified Category: Medical Qualifiers: Constipation type: slow transit constipation Qualified Code(s): K59.01 - Slow transit constipation (3) History of diverticulitis: Code(s): Z87.19 - Personal history of other diseases of the digestive system Category: Surgical (4) Diverticular disease: Code(s): K57.90 - Diverticulosis of intestine, part unspecified, without perforation or abscess without bleeding Category: Medical (5) S/P colon resection: Code(s): Z90.49 - Acquired absence of other specified parts of digestive tract Category: Surgical Plan Patient was encouraged to increase fluid intake and activity to promote better bowel motility. We will start her on Motegrity. Patient was however encouraged to increase fiber intake as well. She can take [id number] fiber supplements with pre and probiotic as needed. Encouraged to call her general surgeon to see if she can be seen to evaluate for hernia. I do not appreciate however any hernia up on exam. Abdomen distended slightly as she has not had a bowel movement for few days. Patient will follow-up in our office in 2 months, sooner on as needed basis. She is agreeable to this plan and verbalizes understanding of instructions. She was given the opportunity to ask questions and all questions answered. Thank you for allowing me to participate in her care Medications: New prucalopride (Motegrity) 2 mg PO DAILY 30 tabs 2RF K59.04 - Chronic idiopathic constipation Coding Level of Care Code Est Pt Level 4 (14560) Complex EM visit Add On G2211 Diagnoses Gastroesophageal reflux disease without esophagitis K21.9 Esophagitis presence: without esophagitis Slow transit constipation K59.01 Constipation type: slow transit constipation History of diverticulitis Z87.19 Diverticular disease K57.90 S/P colon resection Z90.49 Time Spent (min) 40 Comment 25 minutes spent with patient and additional 15 minutes spent reviewing her records
[2025-02-06 15:24] VITALS: BP 140/92; PULSE 92; O2SAT 95; BMI 30.4
--- OUTSIDE RECORDS SUMMARY | 2025-02-06 18:49 | XMS_ITS | Patient Health Record ---
Author Organization [facility] Address [address] [place] [address] Care Team Providers Care Aircraft Structural Repairer Name Role Phone Alan Christensen Unavailable [phone] Reason For Referral No Information Medications Medication SIG (Take, Route, Frequency, Duration) Notes Start Date End Date Status PriLOSEC Active Bentyl 10 MG 1 or 2 capsules Oral ly Four times a day as needed for abdominal pain for 30 day(s) 03/17/2011 Active Problems Problem Type SNOMED Code ICD Code Onset Dates Problem Status W/U Status Risk Notes Problem Left upper quadrant pain (249705883) Abdominal pain, left upper quadrant (789.02) Active confirmed Plan Of Treatment No Information Insurance Providers Payer Name Payer Address Payer Phone Subscriber Number Group Number Insured Name Patient Relationship to Insured Coverage Start Date Coverage End Date [facility] [facility] [address] [place] [phone] [id number] ARGELIA RUFFIN Self - patient is the insured Medical (General) History Medical History History ICD Code Denies [place],DM,CVA,Lung disease,renal dise ase Surgical History Surgery Date(Month/Year) section appendectomy hysterectomy knee surgery shock wave lithotripsy for kidney stones
== END 2025-02-06 16:42 | disposition home or self-care (01) ==
LOC: HO.HGI 15:21
PROVIDERS: PCP Internal Medicine; Visit Provider Nurse Practitioner Family
DX: K21.9 Gastro-esophageal reflux disease without esophagitis (principal); K59.01 Slow transit constipation; Z87.19 Personal history of other diseases of the digestive system; K57.90 Diverticulosis of intestine, part unspecified, without perforation or abscess without bleeding; Z90.49 Acquired absence of other specified parts of digestive tract
CPT/HCPCS: 99214

== ENCOUNTER 2025-02-11 14:13 | Outpatient (AMB) | payer BC, SELFPAY ==
--- NOTE | 2025-02-11 14:30 | A.OFFVIS_ITS ---
Vital Signs 02/11/25 14:37 Height 5 ft 2 in Weight 168 lb 6 oz BMI 30.8 BP 130/78 Blood Pressure Location Rt brachial Position Sitting Pulse 88 Intake Visit Reasons: reversal of ileostomy Intake Note: This patient presents for post-op assessment status post reversal of ileostomy. Pt c/o reports inflammation and pain. Brake Reliner Required: No Accompanied by: Self / Same As Patient Allergies lisinopril Adverse Reaction (Intermediate, Verified 02/11/25 14:38) Cough HPI HPI reversal of ileostomy: Details: She had reversal of her loop ileostomy last 01/01/2025. She actually tolerated procedure well and has been doing well postoperatively However, she told her side splitter this this still has some pain on the old ileostomy site. This has actually not as bad as it was last month She therefore sent to me for evaluation. She has good oral intake. She does have a problem with chronic constipation but otherwise she does have bowel movements. She denies any fever or chills. [facility] Medical History Ileostomy in place Numbness Colostomy in place Habitual snoring Dysuria Diverticulitis large intestine w/o perforation or abscess w/o bleeding Hypokalemia Anemia Impaired glucose tolerance Acute allergic reaction Fatty liver Irritable bowel syndrome Hypertension History of renal calculi Hypercholesterolemia GERD (gastroesophageal reflux disease) Obesity (BMI 30-39.9) Surgical History History of reversal of ileostomy (01/01/25) H/O exploratory laparotomy (08/16/24) Hx of section History of diverticulitis Hx of colonoscopy History of esophagogastroduodenoscopy (EGD) Hx of arthroscopy of left knee Hx of arthroscopy of right knee History of lithotripsy Hx of appendectomy H/O tubal ligation History of abdominal hysterectomy Family History Father Brain tumor Mother Hypertension CVD (cardiovascular disease) Social History Household Members: Spouse Household Members Other:: at bedside Housing: House Are you a primary career center advisor to a significant other at home: No Do you presently have visiting nurse or other home services: No Alcohol intake: never Comment: COUNTS CORRECT Patient Tobacco Use Status: Never used Tobacco e-Cigarette/Vaping Use: Never Used Second Hand Smoke Exposure: No Substance Use Type: Sedatives service: No Current occupational status: employed Current occupational exposures/hazards: No Cognitive needs: No Hearing needs: No Vision needs: Yes Review of Systems Const Denies chills and Denies fever(s) Card Denies dyspnea Resp Denies dyspnea GI Denies hematochezia and Denies vomiting Physical Exam Vital Signs: Last Vital Signs Pulse 88 02/11/25 14:37 BP 130/78 02/11/25 14:37 BMI result Body Mass Index 30.8 Const Other: She looks well General: no acute distress Resp Effort & Inspection: normal respiratory effort GI Other: All ileostomy site is well healed, no palpable hernia, no signs of infection Palpation (GI): Soft to palpation, not firm and no guarding Assessment & Plan Assessment & Plan (1) Ileostomy in place: Comment: Ileostomy reversal December 2024 Dr. Ash Code(s): Z93.2 - Ileostomy status Category: Medical Plan: Status post reversal of a loop ileostomy. She actually seems to be doing very well. I do not see any evidence of any hernia or wound infection on her old ileostomy site. She still has some pain although this is improving steadily. I explained to her that this may take a while in view of tissue trauma I will see her again in the office on a p.r.n. basis. She is comfortable with the plan She does have chronic constipation so we will also try her on Metamucil. Coding Level of Care Code Global (09863) Diagnoses Ileostomy in place Z93.2
[2025-02-11 14:37] VITALS: BP 130/78; PULSE 88; BMI 30.8
== END 2025-02-11 15:00 | disposition home or self-care (01) ==
LOC: HO.HGS 14:14
PROVIDERS: PCP Internal Medicine; Visit Provider Surgery
DX: Z93.2 Ileostomy status (principal)
CPT/HCPCS: 99024

== ENCOUNTER 2025-02-28 15:54 | Outpatient (AMB) | payer BC, SELFPAY ==
--- NOTE | 2025-02-28 15:55 | A.OFFVIS_ITS ---
Intake Visit Reasons: 4m/US/OAB symptoms Intake Note: Patient is present via telehealth 4m/US/OAB symptoms follow up * 01/29 Renal US Urology Medication:NONE Antibiotic Allergy:NONE Blood Thinner:NONE Inside Sales Executive Required: No Allergies lisinopril Adverse Reaction (Intermediate, Verified 02/28/25 15:56) Cough HPI Comments Details: 02/28/25--the patient is status post cystoscopy hydrodistention April 2024. Renal ultrasound done January 29, 2025 negative for kidney stones, LV 10/29/24. History of Present Illness The patient is a 59-year-old female presenting with constipation and associated bladder pain. She also complains of constipation, which began following a surgical reversal procedure, history of reversal of ileostomy (01/01/25), leading to an urge to defecate without successful bowel movements. The patient reports a sensation of pressure on the bladder, exacerbating the discomfort. The patient has been experiencing constipation for approximately three days, with the last bowel movement occurring three days ago. Current interventions include the use of Linzess and MiraLax, although these have not been effective in alleviating the symptoms. The patient underwent a cystoscopy with hydrodistension in April 2024 and a renal ultrasound in January 2025, which was negative for kidney stones. Results - Renal ultrasound (January 2025): Negative for kidney stones Plan 1. Constipation - Advised If no bowel movement occurs within five days, proceed to the emergency room - Follow up with Gen Surgery 2. Bladder Pain - Currently symptoms stable 06/07/24---s/p cysto hydro 05/15/24--- bladder capacity 500 mL, Discussed findings c/w with subaverage capacity expected under anesthesia. Pt states her urinary symptoms have improved. She states she had other w/u and has diverticular inflammation and it is pressing on the bladder. No evidence of fistula. Surgery is scheduled for Jun. Will fu in july after the procedure. CT abd/pelvis 05/28/24-- reviewed in report result section. 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 Denies urinary incontinence. Has some postvoid dribbling. After urinate I think I am done but then there is more that comes out. History of kidney stones had previous ESWL. Review of chart - 02/28/24-- renal US--2mm Right Kidney. UA--today 1+ blood I have discussed reasons for blood in the urine may include but are not limited to kidney stones, cancer in the urinary tract, BPH, or inflammatory conditions of the urinary tract. I have discussed workup to include cystoscopy hydrodistion. [facility] Medical History Ileostomy in place Numbness Colostomy in place Habitual snoring Dysuria Diverticulitis large intestine w/o perforation or abscess w/o bleeding Hypokalemia Anemia Impaired glucose tolerance Acute allergic reaction Fatty liver Irritable bowel syndrome Hypertension History of renal calculi Hypercholesterolemia GERD (gastroesophageal reflux disease) Obesity (BMI 30-39.9) Surgical History History of reversal of ileostomy (01/01/25) H/O exploratory laparotomy (08/16/24) Hx of section History of diverticulitis Hx of colonoscopy History of esophagogastroduodenoscopy (EGD) Hx of arthroscopy of left knee Hx of arthroscopy of right knee History of lithotripsy Hx of appendectomy H/O tubal ligation History of abdominal hysterectomy Family History Father Brain tumor Mother Hypertension CVD (cardiovascular disease) Social History Household Members: Spouse Household Members Other:: at bedside Housing: House Are you a primary care manager to a significant other at home: No Do you presently have visiting nurse or other home services: No Alcohol intake: never Comment: COUNTS CORRECT Patient Tobacco Use Status: Never used Tobacco e-Cigarette/Vaping Use: Never Used Second Hand Smoke Exposure: No Substance Use Type: Sedatives service: No Current occupational status: employed Current occupational exposures/hazards: No Cognitive needs: No Hearing needs: No Vision needs: Yes Review of Systems Const All systems reviewed & are unremarkable except as noted in HPI and below Reports no additional complaints Eyes Reports no additional complaints ENT Reports no additional complaints Card Reports no additional complaints Resp Reports no additional complaints GI Reports no additional complaints Reports as per HPI Musc Reports no additional complaints Skin/Breast Reports system reviewed and no additional complaints, except as documented Neuro Reports no additional complaints Psych Reports no additional complaints Endo Reports no additional complaints Chriss/Lymph Reports no additional complaints Aller/Immun Reports no additional complaints Telehealth Telehealth Telehealth Platform: [employer] Location of provider rendering services: practice address Location of patient: address on file Patient Identification confirmed using: Name, : Yes Telehealth method: video Patient verbally consented to treatment: Yes Patient verbally consented to billing insurance company: Yes Patient informed of any privacy concerns related to visit: Yes Results Reviewed Results Reviewed: Date of Service: 01/29/25 EXAMINATION: US RETROPERITONEAL LIMITED (RENAL ONLY) CLINICAL INFORMATION: Renal calculus.. COMPARISON: February 28, 2024 TECHNIQUE: Real-time ultrasound kidneys using grayscale technique. FINDINGS: RIGHT KIDNEY: 11 x 5 x 6 cm (SAG x AP x TRV). Normal echotexture. Normal renal cortical thickness. No hydronephrosis. No gross solid or cystic lesion. LEFT KIDNEY: 10 x 5 x 5 cm (SAG x AP x TRV). Normal echotexture. Normal renal cortical thickness. No hydronephrosis. No gross solid or cystic lesion. US/US renal BI IMPRESSION: No hydronephrosis. No gross nephrolithiasis.. Date of Service: 05/28/24 CT abdomen and pelvis with contrast Comparison: CT/REG/[place]/SR - CT ABDOMEN PELVIS W IV CON - 06/22/22 10:42 EST Findings: The lung bases are clear. The gallbladder and solid organs are within normal limits. No renal stones. Prior hysterectomy. Nonvisualization of the appendix. No secondary findings to suggest appendicitis. Severe asymmetric thickening of the superolateral bladder wall on the left side. There is associated traction on the bladder wall and contact with adjacent sigmoid diverticula (series 4 images 32-44). There is also thickening of the adjacent peritoneal surface (series 3, image 70). There is infiltration of adjacent fat and borderline thickening of adjacent diverticula. There is no gas within the bladder lumen. There is no extraluminal gas within the mesentery. No bowel obstruction. No pneumatosis or portal venous gas. The bones are intact. IMPRESSION: Findings are likely on the basis of chronic diverticulitis of the sigmoid colon with involvement of a portion of the bladder wall and peritoneum. Possible early fistulous communication between the sigmoid colon and bladder. Given the degree of bladder wall thickening, neoplasm is not excluded. Assessment & Plan Assessment & Plan (1) Sensation of pressure in bladder area: Code(s): R39.89 - Other symptoms and signs involving the genitourinary system Category: Medical (2) Microscopic hematuria: Code(s): R31.29 - Other microscopic hematuria Category: Medical (3) Bladder pain: Code(s): R39.89 - Other symptoms and signs involving the genitourinary system Category: Medical (4) Diverticular disease: Code(s): K57.90 - Diverticulosis of intestine, part unspecified, without perforation or abscess without bleeding Category: Medical (5) History of renal calculi: Code(s): Z87.442 - Personal history of urinary calculi Category: Medical Plan Plan 1. Constipation - Advised If no bowel movement occurs within five days, proceed to the emergency room - Follow up with Gen Surgery 2. Bladder Pain - Currently symptoms stable - FU in office 6 months Patient Instructions: The patient had an opportunity to ask questions regarding treatment plan. The patient expressed understanding and agreement with the above treatment plan. The patient is aware they should contact our office by phone for worsening of their current condition or the appearance of new symptoms. Compliance is encouraged with any medications and followup testing that is ordered. It is a privilege to be allowed the opportunity to participate in the urologic care of your patient. If you have any questions or concerns regarding treatment for the above conditions please do not hesitate to contact me. The office telephone contact is [phone]. This note is constructed in part using voice recognition software. While every effort has been made to ensure accuracy star route mail driver errors may have been included. Yours sincerely, Hector Hays MD Scribe Plan - Not visible on output: Patient Instructions Patient was informed and verbally consented to the use of an ambient scribe for clinic note documentation during this visit. Coding Level of Care Code Tele Est Pt Level 3 (86506) Complex EM visit Add On G2211 Diagnoses Sensation of pressure in bladder area R39.89 Microscopic hematuria R31.29 Bladder pain R39.89 Diverticular disease K57.90 History of renal calculi Z87.442
== END 2025-02-28 16:30 | disposition home or self-care (01) ==
LOC: HO.HUSH 15:54
PROVIDERS: PCP Internal Medicine; Visit Provider Urology
DX: R39.89 Other symptoms and signs involving the genitourinary system (principal); R31.29 Other microscopic hematuria; K57.90 Diverticulosis of intestine, part unspecified, without perforation or abscess without bleeding; Z87.442 Personal history of urinary calculi
CPT/HCPCS: 99213

== ENCOUNTER 2025-03-21 14:14 | Outpatient (AMB) | payer BC, SELFPAY ==
--- NOTE | 2025-03-21 14:21 | A.OFFVIS_ITS ---
Vital Signs 03/21/25 14:28 Height 5 ft 2 in Weight 170 lb BMI 31.1 Intake Visit Reasons: reversal site burning Intake Note: This patient presents for a wound check burning reversal site, reversal loop ileostomy. Pt c/o; 01/01/2025 surgery, reports pain and burning sensation surgical site. Accredited Pharmacy Technician Required: No Accompanied by: Self / Same As Patient Allergies lisinopril Adverse Reaction (Intermediate, Verified 03/21/25 14:28) Cough HPI HPI reversal site burning: Details: She underwent reversal of a loop ileostomy last December,. She actually has been doing well. She has had good oral intake and good bowel movements She however says she has still has periodic sharp pain on the incision and wanted this checked. 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 [facility] Medical History Ileostomy in place Numbness Colostomy in place Habitual snoring Dysuria Diverticulitis large intestine w/o perforation or abscess w/o bleeding Hypokalemia Anemia Impaired glucose tolerance Acute allergic reaction Fatty liver Irritable bowel syndrome Hypertension History of renal calculi Hypercholesterolemia GERD (gastroesophageal reflux disease) Obesity (BMI 30-39.9) Surgical History History of reversal of ileostomy (01/01/25) H/O exploratory laparotomy (08/16/24) Hx of section History of diverticulitis Hx of colonoscopy History of esophagogastroduodenoscopy (EGD) Hx of arthroscopy of left knee Hx of arthroscopy of right knee History of lithotripsy Hx of appendectomy H/O tubal ligation History of abdominal hysterectomy Family History Father Brain tumor Mother Hypertension CVD (cardiovascular disease) Social History Household Members: Spouse Household Members Other:: at bedside Housing: House Are you a primary gericare aide teacher to a significant other at home: No Do you presently have visiting nurse or other home services: No Alcohol intake: never Comment: COUNTS CORRECT Patient Tobacco Use Status: Never used Tobacco e-Cigarette/Vaping Use: Never Used Second Hand Smoke Exposure: No Substance Use Type: Sedatives service: No Current occupational status: employed Current occupational exposures/hazards: No Cognitive needs: No Hearing needs: No Vision needs: Yes Review of Systems Const Denies chills and Denies fever(s) Card Denies chest pain at rest Resp Denies cough GI Denies vomiting Physical Exam Vital Signs: BMI result Body Mass Index 31.1 Const General: comfortable and no acute distress Resp Effort & Inspection: normal respiratory effort GI Other: No induration, no hernia, no cellulitis or signs of infection, no discharge on the ileostomy reversal site Palpation (GI): Soft to palpation, not firm, nontender and no guarding Assessment & Plan Assessment & Plan (1) Ileostomy in place: Comment: Ileostomy reversal December 2024 Dr. Ash Code(s): Z93.2 - Ileostomy status Category: Medical Plan: Status post reversal of loop ileostomy. She describes having occasional sharp pains on the incision I assured her that I did not feel any hernia currently. The incision is well healed. I explained to her that unfortunately, tissue trauma can cause chronic pain in the area She is doing well overall. I did tell her that if she has any concerns down the line, she should not hesitate to come back to the office. Coding Level of Care Code Global (71252) Diagnoses Ileostomy in place Z93.2
[2025-03-21 14:28] VITALS: BMI 31.1
--- OUTSIDE RECORDS SUMMARY | 2025-03-21 17:16 | XMS_ITS | Data Portability ---
Author Organization [place] - [facility], Allergy Address [address] [place] [phone] Care Team Providers Care Pole Classifier Name Role Phone ANUP PACHECO Primary Care Provider Assessment Encounter Date Assessment Date Assessment LastModified by Organization Details LastModified Time 12/17/2024 12/17/2024 1. Glossitis The patient presents with glossitis noted by ongoing symptoms of a swollen and painful tongue. I have directed to conduct relevant blood tests to check for magnesium and B12 levels, given the lack of prior evaluations. This aims to identify potential nutritional deficiencies or other differential causes impacting the tongue's condition. 2. Gastroesophageal Reflux Disease (GERD) The patient's GERD symptoms persist despite pantoprazole. I have advised the incorporation of Reflux Gourmet, a sodium alginate product, to manage symptoms by blocking acid entering the esophagus. The patient has adapted dietary modifications for symptom reduction, focusing on avoiding identified triggers. [email or web address] Not available 12/17/2024 15:15:38 Plan of Treatment Reminders Order Date Submit Date Provider Last Modified By Organization Details Last Modified Time Details Appointments None recorded. Lab vitamin B12 + folate, serum or blood 2024 025 [place] [facility] (Centralized Electronic Ordering - All Locations), Patient Can Go To The Location Of Their Choice, [address] 17:16:54 DARSHAN (antinuclea r antibodies) screen, serum 2024 025 [place] [facility] (Centralized Electronic Ordering - All Locations), Patient Can Go To The Location Of Their Choice, [address] 17:16:56 ESR (erythrocyt e sedimentati on rate), blood 2024 [place] [facility] (Centralized Electronic Ordering - All Locations), Patient Can Go To The Location Of Their Choice, 17:16:56 iron + total iron-bindin g capacity (TIBC), serum 2024 [place] [facility] (Centralized Electronic Ordering - All Locations), Patient Can Go To The Location Of Their Choice, 17:16:55 ferritin, serum or plasma 2024 [place] [facility] (Centralized Electronic Ordering - All Locations), Patient Can Go To The Location Of Their Choice, 17:16:57 vitamin B6 + metabolites panel, serum or plasma 2024 [place] [facility] (Centralized Electronic Ordering - All Locations), Patient Can Go To The Location Of Their Choice, 17:16:55 CBC w/ auto diff 2024 [place] [facility] (Centralized Electronic Ordering - All Locations), Patient Can Go To The Location Of Their Choice, 17:16:54 Referral None recorded. Procedures None recorded. Surgeries None recorded. Imaging None recorded. Medication Orders clotrimazol e 10 mg rama 2024 [facility] #[id number], [address] [facility], [place], [address], 15:16:11 Patient TargetsNo targets recorded. Patient Instructions Encounter Date Encounter Id Patient Instructions Last Modified By Organization Details Last Modified Time 12/17/2024 [id number] Please note: Parts of this encounter note have been generated by AI based on audio conversation. Patient consent was required prior to utilizing this technology. Content review was required prior to finalizing the note. [email or web address] Not available 12/17/2024 15:15:38 Reason for Referral None Reported. Results Created Date Observation Date Name Description Value Unit Range Abnormal Flag Note LastModifiedBy Organization Detail LastModifiedTime 12/18/19 25 12/18/2024 VITAM IN B12+F OLATE vitamin B12 496 pg/mL 232-12 45 normal Not Available [facility] ([facility]) [address] [facility], [place], [address], 12/21/2024 17:16:54 12/18/19 25 12/18/2024 VITAM IN B12+F OLATE folate (folic acid), serum 6.9 NG/mL >3.0 normal A serum folat e esther ntrat ion of less than 3.1 ng/mL is consi dered to repre sent clini sai defic iency . Not Available [facility] ([facility]) [address] [facility], [place], [address], 12/21/2024 17:16:54 12/18/1912/18/2024 CBC WITH DIFFE RENTI AL/PL ATELE T WBC 9.5 x10e3 /uL 3.4-10 .8 normal Not Available [facility] ([facility]) [address] [facility], [place], [address], 12/21/2024 17:16:54 12/18/19 25 12/18/2024 CBC WITH DIFFE RENTI AL/PL ATELE T RBC 4.70 x10e6 /uL 3.77-5 .28 normal Not Available [facility] ([facility]) [address] [place], [address], 12/21/2024 17:16:54 12/18/19 25 12/18/2024 CBC WITH DIFFE RENTI AL/PL ATELE T hemoglobin 12.4 g/dL 11.1-1 5.9 normal Not Available [facility] ([facility]) [address] [place], [address], 12/21/2024 17:16:54 12/18/19 25 12/18/2024 CBC WITH DIFFE RENTI AL/PL ATELE T hematocrit 39.9 % 34.0-4 6.6 normal Not Available [facility] ([facility]) [address] [place], [address], 12/21/2024 17:16:54 12/18/1912/18/2024 CBC WITH DIFFE RENTI AL/PL ATELE T MCV 85 fL 79-97 normal Not Available [facility] ([facility]) [address] [facility], [place], [address], 12/21/2024 17:16:54 12/18/1912/18/2024 CBC WITH DIFFE RENTI AL/PL ATELE T MCH 26.4 pg 26.6-3 3.0 below low normal Not Available [facility] ([facility]) [address] [facility], [place], [address], 12/21/2024 17:16:54 12/18/19 25 12/18/2024 CBC WITH DIFFE RENTI AL/PL ATELE T MCHC 31.1 g/dL 31.5-3 5.7 below low normal Not Available [facility] ([facility]) [address] [facility], [place], [address], 12/21/2024 17:16:54 12/18/1912/18/2024 CBC WITH DIFFE RENTI AL/PL ATELE T RDW 14.6 % 11.7-1 5.4 Not Available [facility] ([facility]) [address] [place], [address], 12/21/2024 17:16:54 12/18/1912/18/2024 CBC WITH DIFFE RENTI AL/PL ATELE T platelets 406 x10e3 /uL 150-45 0 normal Not Available [facility] ([facility]) [address] [place], [address], 12/21/2024 17:16:54 12/18/1912/18/2024 CBC WITH DIFFE RENTI AL/PL ATELE T neutrophils 59 % not estab. normal Not Available [facility] ([facility]) [address] [place], [address], 12/21/2024 17:16:54 12/18/19 25 12/18/2024 CBC WITH DIFFE RENTI AL/PL ATELE T lymphs 31 % not estab. normal Not Available [facility] ([facility]) [address] [place], [address], 12/21/2024 17:16:54 12/18/19 25 12/18/2024 CBC WITH DIFFE RENTI AL/PL ATELE T monocytes 7 % not estab. normal Not Available [facility] ([facility]) [address] [place], [address], 12/21/2024 17:16:54 12/18/19 25 12/18/2024 CBC WITH DIFFE RENTI AL/PL ATELE T eos 2 % not estab. normal Not Available [facility] ([facility]) [address] [facility], [place], [address], 12/21/2024 17:16:54 12/18/19 25 12/18/2024 CBC WITH DIFFE RENTI AL/PL ATELE T basos 1 % not estab. normal Not Available [facility] ([facility]) [address] [facility], [place], [address], 12/21/2024 17:16:54 12/18/19 25 12/18/2024 CBC WITH DIFFE RENTI AL/PL ATELE T immature cells FIELD CONSULTANT Not Available [facility] ([facility]) [address] [place], [address], 12/21/2024 17:16:54 12/18/19 25 12/18/2024 CBC WITH DIFFE RENTI AL/PL ATELE T neutrophils (absolute) 5.6 x10e3 /uL 1.4-7. 0 normal Not Available [facility] ([facility]) [address] [place], [address], 12/21/2024 17:16:54 12/18/19 25 12/18/2024 CBC WITH DIFFE RENTI AL/PL ATELE T lymphs (absolute) 2.9 x10e3 /uL 0.7-3. 1 normal Not Available [facility] ([facility]) [address] [facility], [place], [address], 12/21/2024 17:16:54 12/18/19 25 12/18/2024 CBC WITH DIFFE RENTI AL/PL ATELE T monocytes(ab solute) 0.7 x10e3 /uL 0.1-0. 9 normal Not Available [facility] ([facility]) [address] [place], [address], 12/21/2024 17:16:54 12/18/19 25 12/18/2024 CBC WITH DIFFE RENTI AL/PL ATELE T eos (absolute) 0.2 x10e3 /uL 0.0-0. 4 normal Not Available [facility] ([facility]) [address] [place], [address], 12/21/2024 17:16:54 12/18/19 25 12/18/2024 CBC WITH DIFFE RENTI AL/PL ATELE T baso (absolute) 0.1 x10e3 /uL 0.0-0. 2 normal Not Available [facility] ([facility]) [address] [place], [address], 12/21/2024 17:16:54 12/18/19 25 12/18/2024 CBC WITH DIFFE RENTI AL/PL ATELE T immature granulocytes 0 % not estab. Not Available [facility] ([facility]) [address] [place], [address], 12/21/2024 17:16:54 12/18/19 25 12/18/2024 CBC WITH DIFFE RENTI AL/PL ATELE T immature grans (abs) 0.0 x10e3 /uL 0.0-0. 1 Not Available [facility] ([facility]) [address] [place], [address], 12/21/2024 17:16:54 12/18/19 25 12/18/2024 CBC WITH DIFFE RENTI AL/PL ATELE T NRBC FIELD CONSULTANT Not Available [facility] ([facility]) [address] [facility], [place], [address], 12/21/2024 17:16:54 12/18/19 25 12/18/2024 CBC WITH DIFFE RENTI AL/PL ATELE T hematology comments: FIELD CONSULTANT Not Available [facility] ([facility]) [address] [facility], [place], [address], 12/21/2024 17:16:54 12/18/19 25 12/18/2024 IRON AND TIBC iron bind.cap.(TI BC) 359 ug/dL 250-45 0 normal Not Available [facility] ([facility]) [address] [facility], [place], [address], 12/21/2024 17:16:55 12/18/19 25 12/18/2024 IRON AND TIBC UIBC 333 ug/dL 131-42 5 normal Not Available [facility] ([facility]) [address] [facility], [place], [address], 12/21/2024 17:16:55 12/18/19 25 12/18/2024 IRON AND TIBC iron 26 ug/dL 27-159 below low normal Not Available [facility] ([facility]) [address] [facility], [place], [address], 12/21/2024 17:16:55 12/18/19 25 12/18/2024 IRON AND TIBC iron saturation 7 % 15-55 alert low Not Available [facility] ([facility]) [address] [facility], [place], [address], 12/21/2024 17:16:55 12/18/19 25 12/21/2024 VITAM IN B6, PLASM A vitamin B6 6.3 ug/L 3.4-65 .2 normal Defic iency : <3.4 Jessica nal: 3.4 - 5.1 Adequ ate: >5.1 Not Available [facility] ([facility]) [address] [place], [address], 12/21/2024 17:16:55 12/18/1912/18/2024 DARSHAN W/REF MICHAEL IF POSIT PATRICE DARSHAN direct Negati ve negati ve Not Available [facility] ([facility]) [address] [facility], [place], [address], 12/21/2024 17:16:56 12/18/1912/18/2024 SEDIM ENTAT ION RATE- WESTE RGREN sedimentatio n rate-westerg davie 40 mm/HR 0-40 normal Not Available [facility] ([facility]) [address] [place], [address], 12/21/2024 17:16:56 12/18/1912/18/2024 BRINDA TIN ferritin 23 NG/mL 15-150 normal Not Available [facility] ([facility]) [address] [place], [address], 12/21/2024 17:16:57 Result Notes None recorded. Problems Name Problem SNOMED Code Status Onset Date Resolution Date Notes Provider Name and Address Organization Details Recorded Time Glossitis 57078714 Active 2024 HAWK GONG MD [address] [place] [address], [place], [phone], [facility] - [facility] 15:13:34 Glossodynia 30641330 Active 2024 HAWK GONG MD [address] [place] [address], [place], [address], [facility] - [facility] 15:13:41 Gastroesophage al reflux disease 485507852 Active 2024 HAWK GONG MD [address] [place] [address], [place], [address], [facility] - [facility] 15:16:21 Problem Notes None recorded. Procedures Surgical History Date Name Laterality Status Provider Name and Address Organization Details Recorded Time section completed HAWK TRIANA MD [address] [place] [address] [place] [address], [phone], [facility] - [facility] 12/17/2024 15:04:51 extracorporeal shockwave lithotripsy completed HAWK TRIANA [facility] [address] [facility] [place] [address] [place] [address], [address], [facility] - [facility] 12/17/2024 15:04:58 operative procedure on knee completed HAWK TRIANA MD [address] [facility] [place],[address], [address], [facility] - [facility] 12/17/2024 15:05:05 appendectomy completed HAWK TRIANA MD [address] [facility] [place],[address], [address], [facility] - [facility] 12/17/2024 15:05:26 hysterectomy completed HAWK TRIANA MD [address] [facility] [place],[address], [address], [facility] - [facility] 12/17/2024 15:05:32 Imaging Results None recorded. Procedure Notes None recorded. Medical Equipment None Reported. Allergies No known drug allergies Medications Name Sig Start Date Stop Date Status Note LastModified by Organization Details LastModified Time losartan 50 mg tablet TAKE 1 TABLET BY MOUTH EVERY DAY active Not Available Not Available No t Available clotrimazol e 10 mg rama TAKE 1 TABLET BY MOUTH 5 TIMES A DAY active Not Available Not Available No t Available doxycycline hyclate 100 mg capsule TAKE 1 CAPSULE BY MOUTH TWICE A DAY FOR 5 DAYS 12/17 completed Not Available Not Available Not Available erythromyci n 500 mg tablet TAKE 2 TABLETS (1000MG) AT 2PM, 3PM AND 10PM ON THE DAY PRIOR TO THE SURGERY. 12/17 completed Not Available Not Available Not Available ibuprofen 800 mg tablet TAKE 1 TABLET BY MOUTH EVERY 8 HOURS NEEDED FOR PAIN active Not Available Not Available No t Available phenazopyri dine 200 mg tablet TAKE 1 TABLET ORALLY 3 TIMES A DAY FOR URINARY BURNING, PAIN TAKE WITH FOOD active Not Available Not Available No t Available simvastatin 10 mg tablet TAKE 1 TABLET BY MOUTH EVERYDAY AT BEDTIME active Not Available Not Available No t Available metronidazo le 500 mg tablet TAKE 1 TABLET BY MOUTH 3 TIMES A DAY FOR 10 DAYS 12/17 completed Not Available Not Available Not Available pantoprazol e 40 mg tablet,myra yed release TAKE 1 TABLET BY MOUTH EVERY DAY IN THE MORNING AT 630AM active Not Available Not Available No t Available simvastatin 20 mg tablet TAKE 1 TABLET BY MOUTH AT BEDTIME active Not Available Not Available No t Available docusate sodium 100 mg capsule TAKE 2 CAPSULES BY MOUTH AT BEDTIME active Not Available Not Available No t Available neomycin 500 mg tablet TAKE 2 TABLETS BY MOUTH 3 TIMES A DAY FOR 3 DOSES 2 PM, 3PM, 10PM DAY PRIOR TO THE SURGERY 12/17 completed Not Available Not Available Not Available ondansetron 4 mg disintegrat ing tablet DISSOLVE 1 TABLET ON TONGUE EVERY 8 HOURS NEEDED FOR NAUSEA AND VOMITING active Not Available Not Available No t Available losartan 100 mg tablet TAKE 1 TABLET BY MOUTH EVERYDAY AT BEDTIME active Not Available Not Available No t Available dicyclomine 10 mg capsule TAKE 1 CAPSULE ORALLY 2 TIMES A DAY NEEDED FOR FOR ABDOMINAL PAIN active Not Available Not Available No t Available amoxicillin 875 mg-potassiu m clavulanate 125 mg tablet TAKE 1 TABLET BY MOUTH TWICE A DAY FOR 10 DAYS 12/17 completed Not Available Not Available Not Available amoxicillin 500 mg-potassiu m clavulanate 125 mg tablet TAKE 1 TABLET BY MOUTH TWICE A DAY 12/17 completed Not Available Not Available Not Available oxycodone 5 mg tablet TAKE 1 TABLET BY MOUTH EVERY 4 HOURS NEEDED FOR PAIN active Not Available Not Available No t Available Laxative (bisacodyl) 5 mg tablet,myra yed release TAKE BOTH TABLETS AT 10AM ON THE DAY BEFORE THE PROCEDURE . active Not Available Not Available No t Available Gavilax 17 gram/dose oral powder PLEASE SEE ATTACHED FOR DETAILED DIRECTION S active Not Available Not Available No t Available Vitals Date Recorded Body weight Body mass index (BMI) Body height Provider Name and Address Organization Details Last Updated DateTime 12/17/2024 26790.74 g 30.2 kg/m2 157.48 cm Savanah Tanner [place] - [facility] 12/17/2024 15:01:17 Social History None recorded. Functional Status None recorded. Mental Status None recorded. Family History Nothing Reported. Medical History Condition Response GERD/Reflux Y Gynecological HistoryNo gynecological history recorded. Obstetrics History GPAL:G 0 P 0 0 0 0 Past Encounters Encounter ID Performer Location Encounter Start Date Encounter Closed Date Diagnosis/Indication Diagnosis SNOMED-CT Code Diagnosis ICD10 Code Diagnosis IMO Codes Diagnosis Note [id number] HAWK MARTI MD [facility] [address] [address] 12/17/2024 14:44:15 12/17/2024 15:18:19 Glossitis 66021458 K14.0 29198 No evidence of thrush but will try clotrimazo le Glossodynia 75958796 K14 .6 8137 Gastroesop hageal reflux disease 528796215 K21.9 85697300 Health Concerns Section Related Observation LastModified by Organization Detai ls LastModified Time None Recorded Concern Status LastModified by Organization Details LastModified Time None Recorded Advance Directives Directive None Recorded Payers Insurance Date Sequence Insurance Name Policy Number Policy Flores Covered Member ID Flores Member ID Guarantor Name 12/17/2024 1 [employer] [place] [id number] Christel Correa [id number] Christel Correa 12/17/2024 1 [employer] [place] [id number] Christel Correa [id number] Christel Correa Notes Date Note Type Note Provider Name and Address Organization Details Recorded Time 12/17/2024 text/html ROS as noted in the HPI The patient is a 59-year-old female presenting with glossitis. She reports experiencing a painful, swollen, and burning sensation affecting her entire tongue since a COVID-19 infection three years ago. The pain is constant, with episodes of bleeding, burning, and occasional cuts. The patient recalls receiving a numbing medication, likely lidocaine, in an emergency scenario, which was ineffective. Blood tests, including B12 levels, have not been conducted, and eating and drinking actions cause discomfort due to the tongue's burning sensation. Additionally, the patient presents with gastroesophageal reflux disease (GERD), signified by frequent heartburn. She is presently taking pantoprazole but continues to experience mild symptoms. Dietary adjustments have been implemented by avoiding salt-containing foods and condiments like ketchup and mustard to manage symptomatology. HAWK TRIANA MD [address] [place] [address], [phone], [facility] - [facility] 12/17/2024 15:17:14 OBGyn Episode No OBEpisode recorded.
--- OUTSIDE RECORDS SUMMARY | 2025-03-21 17:16 | XMS_ITS | Patient Health Record ---
Author Organization [facility] Address [address] [place] [address] Care Team Providers Care Survey Workers Supervisor Name Role Phone Alan Christensen Unavailable [phone] Reason For Referral No Information Medications Medication SIG (Take, Route, Frequency, Duration) Notes Start Date End Date Status PriLOSEC Active Bentyl 10 MG 1 or 2 capsules Oral ly Four times a day as needed for abdominal pain; Duration: 30 day(s) 03/17/2011 Active Problems Problem Type SNOMED Code ICD Code Onset Dates Problem Status W/U Status Risk Notes Problem Left upper quadrant pain (004376148) Abdominal pain, left upper quadrant (789.02) Active confirmed Plan Of Treatment No Information Insurance Providers Payer Name Payer Address Payer Phone Subscriber Number Group Number Insured Name Patient Relationship to Insured Coverage Start Date Coverage End Date [facility] [address] [place] [address] [id number] ARGELIA RUFFIN Self - patient is the insured Medical (General) History Medical History History ICD Code Denies NC,DM,CVA,Lung disease,renal dise ase Surgical History Surgery Date(Month/Year) section appendectomy hysterectomy knee surgery shock wave lithotripsy for kidney stones
== END 2025-03-21 14:49 | disposition home or self-care (01) ==
LOC: HO.HGS 14:15
PROVIDERS: PCP Internal Medicine; Visit Provider Surgery
DX: Z93.2 Ileostomy status (principal)
CPT/HCPCS: 99024

== ENCOUNTER 2025-03-25 11:12 | Outpatient (AMB) | payer BC, SELFPAY ==
[2025-03-25 11:21] VITALS: BP 142/76; PULSE 88; O2SAT 97; BMI 31.1
--- NOTE | 2025-03-25 11:21 | A.OFFVIS_ITS ---
Vital Signs 03/25/25 11:21 Height 5 ft 2 in Weight 170 lb BMI 31.1 BP 142/76 H Blood Pressure Location Rt brachial Position Sitting Pulse 88 Pulse Source Pulse Oximeter Pulse Oximetry (%) 97 Oxygen Delivery Method Room Air Intake Visit Reasons: 2 mos FUV. CIC + GERD Intake Note: ESTABLISHED PATIENT for Constipation + chronic abd pain mgmt. Chief Complaint; C.O. intermittent constipation despite current therapy. PT states that the linzess is a definitive improvement from the motegrity; however, she does sometimes take 2 tabs instead of 1 because it does not always work as intended. Manufacturing Coordinator Required: No Accompanied by: Self / Same As Patient Allergies lisinopril Adverse Reaction (Intermediate, Verified 03/25/25 11:25) Cough prucalopride (From Motegrity) Adverse Reaction (Unknown, Verified 03/25/25 11:25) Headache HPI HPI 2 mos FUV. CIC + GERD: Details: LAST VISIT: GERD (gastroesophageal reflux disease) Constipation History of diverticulitis Diverticular disease S/P colon resection Plan Patient was encouraged to increase fluid intake and activity to promote better bowel motility. We will start her on Motegrity. Patient was however encouraged to increase fiber intake as well. She can take cvly-ocv-hlgrusw fiber supplements with pre and probiotic as needed. Encouraged to call her general surgeon to see if she can be seen to evaluate for hernia. I do not appreciate however any hernia up on exam. Abdomen distended slightly as she has not had a bowel movement for few days. Patient will follow-up in our office in 2 months, sooner on as needed basis. She is agreeable to this plan and verbalizes understanding of instructions. She was given the opportunity to ask questions and all questions answered. ? Thank you for allowing me to participate in her care New prucalopride (Motegrity) 2 mg PO DAILY 30 tabs 2RF K59.04 TODAY'S VISIT Patient is here today for follow-up. Patient reports that she has been doing better since she was seen last time. Patient states that she tried Motegrity, however she had adverse reaction with severe headaches. Patient stopped that and started taking Linzess 145 mcg again. Patient reports that it helps for the most part. Patient states that whenever she is unable to go after taking 1 Linzess she takes 2 and she has a better results. Patient reports that occasionally she will take it once or twice a week. Patient denies melena, hematochezia. Patient reports that she went last to see Dr. Ash who evaluated her and found no hernias. Patient reports that since she has been moving her bowels better she feels well. Patient states that occasionally she will have left lower quadrant pain if she is straining. Patient reports that acid reflux is suppressed. Patient is taking pantoprazole daily with good effect. Denies dyspepsia, dysphagia or odynophagia. Denies any nausea or vomiting. Denies any other GI concerning symptoms. Patient reports that she is eating smaller meals and more often. Patient reports that she does not eat past 18:00 [facility] Medical History Ileostomy in place Numbness Colostomy in place Habitual snoring Dysuria Diverticulitis large intestine w/o perforation or abscess w/o bleeding Hypokalemia Anemia Impaired glucose tolerance Acute allergic reaction Fatty liver Irritable bowel syndrome Hypertension History of renal calculi Hypercholesterolemia GERD (gastroesophageal reflux disease) Obesity (BMI 30-39.9) Surgical History History of reversal of ileostomy (01/01/25) H/O exploratory laparotomy (08/16/24) Hx of section History of diverticulitis Hx of colonoscopy History of esophagogastroduodenoscopy (EGD) Hx of arthroscopy of left knee Hx of arthroscopy of right knee History of lithotripsy Hx of appendectomy H/O tubal ligation History of abdominal hysterectomy Family History Father Brain tumor Mother Hypertension CVD (cardiovascular disease) Social History Household Members: Spouse Household Members Other:: at bedside Housing: House Are you a primary care transport nurse to a significant other at home: No Do you presently have visiting nurse or other home services: No Alcohol intake: never Comment: COUNTS CORRECT Patient Tobacco Use Status: Never used Tobacco e-Cigarette/Vaping Use: Never Used Second Hand Smoke Exposure: No Substance Use Type: Sedatives service: No Current occupational status: employed Current occupational exposures/hazards: No Cognitive needs: No Hearing needs: No Vision needs: Yes Review of Systems Const Denies weight gain and Denies weight loss ENT Reports no additional complaints, Denies dysphagia and Denies odynophagia Card Reports no additional complaints Resp Reports no additional complaints GI Reports abdominal pain, Denies belching, Denies melena, Reports bloating, Denies change in bowel habits, Reports constipation, Denies dysphagia, Denies excessive flatus, Denies dyspepsia, Denies heartburn, Denies diarrhea, Denies loose stools, Denies nausea, Denies odynophagia and Denies vomiting Reports no additional complaints Musc Reports no additional complaints Neuro Reports no additional complaints Psych Reports no additional complaints Endo Reports no additional complaints Physical Exam Vital Signs: BMI result Body Mass Index 31.1 Const General: comfortable and no acute distress Orientation/consciousness: patient oriented x3 Neck Neck: Yes no lymphadenopathy Resp Effort & Inspection: normal respiratory effort Auscultation: clear to auscultation bilaterally Cardio Rhythm: regular rhythm GI Other: Status post ileostomy reversal Inspection: No abdominal wall ecchymosis, No Abdominal wall edema, No distended and Yes scar Palpation (GI): Soft to palpation, nontender and no guarding General: Yes no CVA tenderness Back/Spine/Pelvis Back: no CVA tenderness Neuro General: patient oriented x3 Assessment & Plan Assessment & Plan (1) GERD (gastroesophageal reflux disease): Code(s): K21.9 - Gastro-esophageal reflux disease without esophagitis Category: Medical Qualifiers: Esophagitis presence: without esophagitis Qualified Code(s): K21.9 - Gastro-esophageal reflux disease without esophagitis (2) Constipation: Code(s): K59.00 - Constipation, unspecified Category: Medical Qualifiers: Constipation type: slow transit constipation Qualified Code(s): K59.01 - Slow transit constipation (3) History of diverticulitis: Code(s): Z87.19 - Personal history of other diseases of the digestive system Category: Surgical (4) Diverticular disease: Code(s): K57.90 - Diverticulosis of intestine, part unspecified, without perforation or abscess without bleeding Category: Medical (5) S/P colon resection: Code(s): Z90.49 - Acquired absence of other specified parts of digestive tract Category: Surgical Plan Increase fluid intake and activity to promote better bowel motility. Will increase patient's Linzess to 290 mcg daily. Continue pantoprazole. Avoid dietary triggers in late night snacking. Staying upright for minimum 3 hours after meals discussed with patient. Patient follow-up in our office in 4 [facility]. She was encouraged to call us if she will have any GI concerning symptoms. Patient is agreeable to this plan and verbalizes understanding of instructions. She was given the opportunity to ask questions and all questions answered. Thank you for allowing me to participate in her care Medications: New linaclotide (Linzess) 290 mcg PO QAM 30 caps 4RF K59.00 - Constipation, unspecified Refilled pantoprazole 40 mg PO DAILY@0630 90 tabs 3RF Coding Level of Care Code Est Pt Level 4 (28756) Complex EM visit Add On G2211 Diagnoses Gastroesophageal reflux disease without esophagitis K21.9 Esophagitis presence: without esophagitis Slow transit constipation K59.01 Constipation type: slow transit constipation History of diverticulitis Z87.19 Diverticular disease K57.90 S/P colon resection Z90.49 Time Spent (min) 35 Comment 25 minutes spent with patient and additional 10 minutes spent reviewing her records
--- OUTSIDE RECORDS SUMMARY | 2025-03-25 14:14 | XMS_ITS | Data Portability ---
Author Organization [place] [facility], Allergy Address [address] [place] [phone] Care Team Providers Care Computer Education Teacher Name Role Phone ANUP PACHECO Primary Care [...] Go To The Location Of Their Choice, [address] 17:16:54 DARSHAN (antinuclea r antibodies) screen, serum 2024 025 FABIOAL [facility] (Centralized Electronic Ordering - All Locations), Patient Can Go To The Location Of Their Choice, [address] 17:16:56 ESR (erythrocyt e sedimentati on rate), blood 2024 FRESNO [facility] (Centralized Electronic Ordering - All Locations), Patient Can Go To The Location Of Their Choice, 17:16:56 iron + total iron-bindin g capacity (TIBC), serum 2024 FRESNO [facility] (Centralized Electronic Ordering - All Locations), Patient Can Go To The Location Of Their Choice, 17:16:55 ferritin, serum or plasma 2024 FRESNO [facility] (Centralized Electronic Ordering - All Locations), Patient Can Go To The Location Of Their Choice, 17:16:57 vitamin B6 + metabolites panel, serum or plasma 2024 FRESNO [facility] (Centralized Electronic Ordering - All Locations), Patient Can Go To The Location Of Their Choice, 17:16:55 CBC w/ auto diff 2024 FRESNO [facility] (Centralized Electronic Ordering - All Locations), Patient Can Go To The Location Of Their Choice, 17:16:54 Referral None recorded. Procedures None recorded. Surgeries None recorded. Imaging None recorded. Medication Orders clotrimazol e 10 mg rama 2024 [facility] #[id number], [address] [facility], [place], [address], 15:16:11 Patient TargetsNo targets recorded. Patient Instructions Encounter Date Encounter Id Patient Instructions Last Modified By Organization Details Last Modified Time 12/17/2024 [id number] Please note: Parts of this encounter note [...] pg/mL 232-12 45 normal Not Available [facility] ([facility]) [address] [facility], [place], [address], 12/21/2024 17:16:54 12/18/19 25 12/18/2024 VITAM IN B12+F OLATE folate (folic acid), serum 6.9 NG/mL >3.0 normal A serum folat e esther ntrat ion of less than 3.1 ng/mL is consi dered to repre sent clini sai defic iency . Not Available [facility] ([facility]) [address] [facility], [place], [address], 12/21/2024 17:16:54 12/18/1912/18/2024 CBC WITH DIFFE RENTI AL/PL ATELE T WBC 9.5 x10e3 /uL 3.4-10 .8 normal Not Available [facility] ([facility]) [address] [facility], [place], [address], 12/21/2024 17:16:54 12/18/19 25 12/18/2024 CBC WITH DIFFE RENTI AL/PL ATELE T RBC 4.70 x10e6 /uL 3.77-5 .28 normal Not Available [facility] ([facility]) [address] [place], [address], 12/21/2024 17:16:54 12/18/19 25 12/18/2024 CBC WITH DIFFE RENTI AL/PL ATELE T hemoglobin 12.4 g/dL 11.1-1 5.9 normal Not Available [facility] ([facility]) [address] [place], [address], 12/21/2024 17:16:54 12/18/19 25 12/18/2024 CBC WITH DIFFE RENTI AL/PL ATELE T hematocrit 39.9 % 34.0-4 6.6 normal Not Available [facility] ([facility]) [address] [place], [address], 12/21/2024 17:16:54 12/18/1912/18/2024 CBC WITH DIFFE RENTI AL/PL ATELE T MCV 85 fL 79-97 normal Not Available [facility] ([facility]) [address] [facility], [place], [address], 12/21/2024 17:16:54 12/18/1912/18/2024 CBC WITH DIFFE RENTI AL/PL ATELE T MCH 26.4 pg 26.6-3 3.0 below low normal Not Available [facility] ([facility]) [address] [facility], [place], [address], 12/21/2024 17:16:54 12/18/19 25 12/18/2024 CBC WITH DIFFE RENTI AL/PL ATELE T MCHC 31.1 g/dL 31.5-3 5.7 below low normal Not Available [facility] ([facility]) [address] [facility], [place], [address], 12/21/2024 17:16:54 12/18/1912/18/2024 CBC WITH DIFFE RENTI AL/PL ATELE T RDW 14.6 % 11.7-1 5.4 Not Available [facility] ([facility]) [address] [place], [address], 12/21/2024 17:16:54 12/18/1912/18/2024 CBC WITH DIFFE RENTI AL/PL ATELE T platelets 406 x10e3 /uL 150-45 0 normal Not Available [facility] ([facility]) [address] [place], [address], 12/21/2024 17:16:54 12/18/1912/18/2024 CBC WITH DIFFE RENTI AL/PL ATELE T neutrophils 59 % not estab. normal Not Available [facility] ([facility]) [address] [place], [address], 12/21/2024 17:16:54 12/18/19 25 12/18/2024 CBC WITH DIFFE RENTI AL/PL ATELE T lymphs 31 % not estab. normal Not Available [facility] ([facility]) [address] [place], [address], 12/21/2024 17:16:54 12/18/19 25 12/18/2024 CBC WITH DIFFE RENTI AL/PL ATELE T monocytes 7 % not estab. normal Not Available [facility] ([facility]) [address] [place], [address], 12/21/2024 17:16:54 12/18/19 25 12/18/2024 CBC WITH DIFFE RENTI AL/PL ATELE T eos 2 % not estab. normal Not Available [facility] ([facility]) [address] [facility], [place], [address], 12/21/2024 17:16:54 12/18/19 25 12/18/2024 CBC WITH DIFFE RENTI AL/PL ATELE T basos 1 % not estab. normal Not Available [facility] ([facility]) [address] [facility], [place], [address], 12/21/2024 17:16:54 12/18/19 25 12/18/2024 CBC WITH DIFFE RENTI AL/PL ATELE T immature cells DRIVER GUIDE Not Available [facility] ([facility]) [address] [place], [address], 12/21/2024 17:16:54 12/18/19 25 12/18/2024 CBC WITH DIFFE RENTI AL/PL ATELE T neutrophils (absolute) 5.6 x10e3 /uL 1.4-7. 0 normal Not Available [facility] ([facility]) [address] [place], [address], 12/21/2024 17:16:54 12/18/19 25 12/18/2024 CBC WITH DIFFE RENTI AL/PL ATELE T lymphs (absolute) 2.9 x10e3 /uL 0.7-3. 1 normal Not Available [facility] ([facility]) [address] [facility], [place], [address], 12/21/2024 17:16:54 12/18/19 25 12/18/2024 CBC WITH DIFFE RENTI AL/PL ATELE T monocytes(ab solute) 0.7 x10e3 /uL 0.1-0. 9 normal Not Available [facility] ([facility]) [address] [place], [address], 12/21/2024 17:16:54 12/18/19 25 12/18/2024 CBC WITH DIFFE RENTI AL/PL ATELE T eos (absolute) 0.2 x10e3 /uL 0.0-0. 4 normal Not Available [facility] ([facility]) [address] [place], [address], 12/21/2024 17:16:54 12/18/19 25 12/18/2024 CBC WITH DIFFE RENTI AL/PL ATELE T baso (absolute) 0.1 x10e3 /uL 0.0-0. 2 normal Not Available [facility] ([facility]) [address] [place], [address], 12/21/2024 17:16:54 12/18/19 25 12/18/2024 CBC WITH DIFFE RENTI AL/PL ATELE T immature granulocytes 0 % not estab. Not Available [facility] ([facility]) [address] [place], [address], 12/21/2024 17:16:54 12/18/19 25 12/18/2024 CBC WITH DIFFE RENTI AL/PL ATELE T immature grans (abs) 0.0 x10e3 /uL 0.0-0. 1 Not Available [facility] ([facility]) [address] [place], [address], 12/21/2024 17:16:54 12/18/19 25 12/18/2024 CBC WITH DIFFE RENTI AL/PL ATELE T NRBC DRIVER GUIDE Not Available [facility] ([facility]) [address] [facility], [place], [address], 12/21/2024 17:16:54 12/18/19 25 12/18/2024 CBC WITH DIFFE RENTI AL/PL ATELE T hematology comments: DRIVER GUIDE Not Available [facility] ([facility]) [address] [facility], [place], [address], 12/21/2024 17:16:54 12/18/19 25 12/18/2024 IRON AND TIBC iron bind.cap.(TI BC) 359 ug/dL 250-45 0 normal Not Available [facility] ([facility]) [address] [facility], [place], [address], 12/21/2024 17:16:55 12/18/19 25 12/18/2024 IRON AND TIBC UIBC 333 ug/dL 131-42 5 normal Not Available [facility] ([facility]) [address] [facility], [place], [address], 12/21/2024 17:16:55 12/18/19 25 12/18/2024 IRON AND TIBC iron 26 ug/dL 27-159 below low normal Not Available [facility] ([facility]) [address] [facility], [place], [address], 12/21/2024 17:16:55 12/18/19 25 12/18/2024 IRON AND TIBC iron saturation 7 % 15-55 alert low Not Available [facility]) [address] [facility], [place], [address], 12/21/2024 17:16:55 12/18/19 25 12/21/2024 VITAM IN B6, PLASM A vitamin B6 6.3 ug/L 3.4-65 .2 normal Defic iency : <3.4 Jessica nal: 3.4 - 5.1 Adequ ate: >5.1 Not Available [facility] ([facility]) [address] [place], [address], 12/21/2024 17:16:55 12/18/1912/18/2024 DARSHAN W/REF MICHAEL IF POSIT PATRICE DARSHAN direct Negati ve negati ve Not Available [facility] ([facility]) [address] [facility], [place], [address], 12/21/2024 17:16:56 12/18/1912/18/2024 SEDIM ENTAT ION RATE- WESTE RGREN sedimentatio n rate-westerg davie 40 mm/HR 0-40 normal Not Available [facility] ([facility]) [address] [place], [address], 12/21/2024 17:16:56 12/18/1912/18/2024 BRINDA TIN ferritin 23 NG/mL 15-150 normal Not Available [facility] ([facility]) [address] [place], [address], 12/21/2024 17:16:57 Result Notes None recorded. Problems Name Problem SNOMED Code Status Onset Date Resolution Date Notes Provider Name and Address Organization Details Recorded Time Glossitis 59857696 Active 2024 HAWK GONG MD [address] [place] [address], [place], [phone], [facility] [place] 15:13:34 Glossodynia 47747968 Active 2024 HAWK GONG MD [address] [place] [address], [place], [address], [facility] - [facility] 15:13:41 Gastroesophage al reflux disease 582990014 Active 2024 HAWK GONG MD [address] [place] [address], [place], [address], [facility] - [facility] 15:16:21 Problem Notes None recorded. Procedures Surgical History Date Name Laterality Status Provider Name and Address Organization Details Recorded Time section completed HAWK TRIANA MD [address] [place] [address] [place] [address], [phone], [facility] - [facility] 12/17/2024 15:04:51 extracorporeal shockwave lithotripsy completed [facility] [address] [facility] [place] [address] [place] [address], [phone], [facility] - [facility] 12/17/2024 15:04:58 operative procedure on knee completed HAWK TRIANA MD [address] [facility] [place],[address], [address], [facility] - [facility] 12/17/2024 15:05:05 appendectomy completed HAWK TRIANA MD [address] [facility] [place],[address], [address], [facility] - [facility] 12/17/2024 15:05:26 hysterectomy completed HAWK TRIANA MD [address] [facility] [place],[address], [address], [facility] - [facility] 12/17/2024 15:05:32 Imaging Results None recorded. Procedure [...] Address Organization Details Last Updated DateTime 12/17/2024 22828.74 g 30.2 kg/m2 157.48 cm Savanah Tanner [place] - [facility] 12/17/2024 15:01:17 Social History None recorded. Functional Status None recorded. Mental Status None recorded. Family History Nothing Reported. Medical History Condition Response GERD/Reflux Y Gynecological HistoryNo gynecological history recorded. Obstetrics History GPAL:G 0 P 0 0 0 0 Past Encounters Encounter ID Performer Location Encounter Start Date Encounter Closed Date Diagnosis/Indication Diagnosis SNOMED-CT Code Diagnosis ICD10 Code Diagnosis IMO Codes Diagnosis Note [id number] HAWK MARTI MD [facility] [address] [phone] 12/17/2024 14:44:15 12/17/2024 15:18:19 Glossitis 60434459 K14.0 23061 No evidence of thrush but will try clotrimazo le Glossodynia 29759831 K14 .6 8137 Gastroesop hageal reflux disease 905633156 K21.9 71083821 Health Concerns Section Related Observation LastModified by Organization Detai ls LastModified Time None Recorded Concern Status LastModified by Organization Details LastModified Time None Recorded Advance Directives Directive None Recorded Payers Insurance Date Sequence Insurance Name Policy Number Policy Flores Covered Member ID Flores Member ID Guarantor Name 12/17/2024 1 [employer] [place] [id number] Christel Correa [id number] Christel Correa 12/17/2024 1 [employer] [place] [id number] Christel Correa [id number] Christel Correa Notes Date Note Type [...] mustard to manage symptomatology. HAWK TRIANA MD [address] [place] [address], [phone], [facility] - [facility] 12/17/2024 15:17:14 OBGyn Episode No OBEpisode recorded.
--- OUTSIDE RECORDS SUMMARY | 2025-03-25 14:14 | XMS_ITS | Patient Health Record ---
Author Organization [facility] Address [address] [place] [address] Care Team Providers Care Underground Mine Superintendent Name Role Phone Alan Christensen Unavailable [phone] Reason For Referral No Information Medications Medication SIG (Take, Route, Frequency, Duration) Notes Start Date End Date Status PriLOSEC Active Bentyl 10 MG 1 or 2 capsules Oral ly Four times a day as needed for abdominal pain; Duration: 30 day(s) 03/17/2011 Active Problems Problem Type SNOMED Code ICD Code Onset Dates Problem Status W/U Status Risk Notes Problem Left upper quadrant pain (492372760) Abdominal pain, left upper quadrant (789.02) Active confirmed Plan Of Treatment No Information Insurance Providers Payer Name Payer Address Payer Phone Subscriber Number Group Number Insured Name Patient Relationship to Insured Coverage Start Date Coverage End Date [facility] [address] [place] [phone] [id number] ARGELIA RUFFIN Self - patient is the insured Medical (General) History Medical History History ICD Code Denies [place],DM,CVA,Lung disease,renal dise ase Surgical History Surgery Date(Month/Year) section appendectomy hysterectomy knee surgery shock wave lithotripsy for kidney stones
== END 2025-03-25 11:38 | disposition home or self-care (01) ==
LOC: HO.HGI 11:13
PROVIDERS: PCP Internal Medicine; Visit Provider Nurse Practitioner Family
DX: K21.9 Gastro-esophageal reflux disease without esophagitis (principal); K59.01 Slow transit constipation; Z87.19 Personal history of other diseases of the digestive system; K57.90 Diverticulosis of intestine, part unspecified, without perforation or abscess without bleeding; Z90.49 Acquired absence of other specified parts of digestive tract
CPT/HCPCS: 99214

== ENCOUNTER 2025-03-26 14:47 | Outpatient (AMB) | payer BC, SELFPAY ==
[2025-03-26 14:55] VITALS: BP 124/86; PULSE 96; TEMP 36.3; O2SAT 97; BMI 31.2
--- NOTE | 2025-03-26 14:55 | MHC.PC.OV ---
Vital Signs 03/26/25 14:55 Height 5 ft 2 in Weight 170 lb 6 oz BMI 31.2 BP 124/86 Blood Pressure Location Lt brachial Position Sitting Pulse 96 Pulse Source Pulse Oximeter Temp 97.3 F Temp Source Temporal Artery Scan Pulse Oximetry (%) 97 Oxygen Delivery Method Room Air Intake Visit Reasons: 3 mo f/u Dr. field Allergies lisinopril Adverse Reaction (Intermediate, Verified 03/26/25 14:59) Cough prucalopride (From [employer]) Adverse Reaction (Unknown, Verified 03/26/25 14:59) Headache Medication List - Last Reconciled 03/26/25 by Isaac Sequeira Po, dicyclomine 10 mg PO BID PRN docusate sodium 200 mg PO BID PRN ibuprofen 600 mg PO Q6H PRN linaclotide (Linzess) 290 mcg PO QAM losartan 100 mg PO BEDTIME ondansetron 4 mg PO Q8H PRN pantoprazole 40 mg PO DAILY@0630 psyllium seed (sugar) (Metamucil (sugar) oral powder) 1 tbsp PO BID simvastatin 20 mg PO BEDTIME Tobacco use date assessed: 03/26/25 Dental Screening Dental Screen Date: 03/26/25 Did you have a dental visit in the last 12 months?: Yes Did you have a dental problem in the last 6 months where you did not have access to dental care?: No Was dental information given to patient?: Patient has dentist [facility] Medical History Ileostomy in place Numbness Colostomy in place Habitual snoring Dysuria Diverticulitis large intestine w/o perforation or abscess w/o bleeding Hypokalemia Anemia Impaired glucose tolerance Acute allergic reaction Fatty liver Irritable bowel syndrome Hypertension History of renal calculi Hypercholesterolemia GERD (gastroesophageal reflux disease) Obesity (BMI 30-39.9) Surgical History History of reversal of ileostomy (01/01/25) H/O exploratory laparotomy (08/16/24) Hx of section History of diverticulitis Hx of colonoscopy History of esophagogastroduodenoscopy (EGD) Hx of arthroscopy of left knee Hx of arthroscopy of right knee History of lithotripsy Hx of appendectomy H/O tubal ligation History of abdominal hysterectomy Family History Father Brain tumor Mother Hypertension CVD (cardiovascular disease) Social History (Reviewed 03/26/25 @ 14:59 by Darlyn Lord [facility]) Household Members: Spouse Household Members Other:: at bedside Housing: House Are you a primary career services director to a significant other at home: No Do you presently have visiting nurse or other home services: No Alcohol intake: never Comment: COUNTS CORRECT Patient Tobacco Use Status: Never used Tobacco e-Cigarette/Vaping Use: Never Used Second Hand Smoke Exposure: No Substance Use Type: Sedatives service: No Current occupational status: employed Current occupational exposures/hazards: No Cognitive needs: No Hearing needs: No Vision needs: Yes Questionnaire PHQ-9 Over the last 2 weeks, how often have you been bothered by any of the following problems? 1. Little interest or pleasure in doing things: not at all 2. Feeling down, depressed, or hopeless: not at all 3. Trouble falling or staying asleep, or sleeping too much: not at all 4. Feeling tired or having little energy: not at all 5. Poor appetite or overeating: not at all 6. Feeling bad about yourself - or that you are a failure or have let yourself or your family down: not at all 7. Trouble concentrating on things, such as reading the newspaper or watching television: not at all 8. Moving or speaking so slowly that other people could have noticed. Or the opposite - being so fidgety or restless that you have been moving around a lot more than usual: not at all 9. Thoughts that you would be better off or of hurting yourself in some way: not at all Total score: 0 Source: Developed by Drs. Alan Pang, Kay Garza, Jesús Berger and colleagues, with an educational tejas from [employer]. Thrive Questionnaire Date Thrive assessed: 03/19/25 I am a: Patient What is your living situation today?: I have a steady place to live Within the past 12 months, did the food you bought not last and you didn't have the money to get more?: Never true Within the past 12 months, did you worry whether your food would run out before you got money to buy more?: Never true Do you have trouble paying for medicines?: No Do you have trouble getting transportation to medical appointments?: No Do you have trouble paying your heating and electricity bill?: No Do you have trouble taking care of your child, family member or friend?: No Do you have trouble with day-to-day activities such as bathing, preparing meals, shopping, managing finances, etc.?: No Are you currently unemployed and looking for a job?: No Are you interested in more education?: No Please select the resources that you would like help with: None Currently or been in a relationship where the following occur: No concerns reported THRIVE Score: 0 AUDIT C Alcohol Use Questionnaire (AUDIT-C) 1. How often do you have a drink containing alcohol?: Never 3. How often do you have six or more drinks on one occasion?: Never Total Score: 0 JENNIFER-7 AMB Questionnaire JENNIFER-7 Date JENNIFER - 7 assessed: 01/11/25 Feeling nervous, anxious, or on edge: 0 = Not at all Not being able to stop or control worryin = Not at all Worrying too much about different things: 0 = Not at all Trouble relaxin = Not at all Being so restless that it is hard to sit still: 0 = Not at all Becoming easily annoyed or irritable: 0 = Not at all Feeling afraid as if something awful might happen: 0 = Not at all Total JENNIFER-7 score (0-4 normal; 5-9 mild; 10-14 moderate; 15-21 severe): 0 Source: Developed by Drs. Alan Pang, Kay Garza, Jesús Berger and colleagues, with an educational tejas from [employer]. Physical exam (Primary Care) Vital Signs: Last Vital Signs Temp 97.3 F 03/26/25 14:55 Pulse 96 03/26/25 14:55 BP 124/86 03/26/25 14:55 Pulse Ox 97 03/26/25 14:55 Oxygen Delivery Method Room Air 03/26/25 14:55 BMI result Body Mass Index 31.2 Tobacco/Smoking Status: Tobacco use Status Tobacco use date assessed 03/26/25 03/26/25 14:59 Patient Tobacco Use Status Never used Tobacco 03/26/25 14:59 e-Cigarette/Vaping Use Never Used 03/26/25 14:59 PHQ-9: PHQ-9 Score PHQ-9: Total score 0 03/26/25 15:29 Thrive Assessment: Date of Thrive Assessment Date Thrive assessed 03/19/25 03/26/25 14:59 Currently or been in a relationship where the following occur: No concerns reported Const General: alert; No acute distress Eyes Conjunctivae: conjunctivae normal Resp Auscultation: clear to auscultation bilaterally Cardio Rate: regular rate Rhythm: regular rhythm GI Inspection: Yes normal to inspection Extrem General: Yes normal to inspection and No edema Results AMB Hemoglobin A1c AMB Hemoglobin A1c 6.2 % Last Edit by Darlyn Lord CMA on 03/26/25 15:05 Immunizations Tenivac (PF) 5 Lf unit-2 Lf unit/0.5 mL intramuscular syringe Performing Provider: Isaac Field MD Performing Location: [facility] Administered by: Darlyn Lord CMA on 03/26/25 15:30 Dose Route Admin Location Dispensed Lot Number Expiration Date [facility] Retail Supervisor 0.5 mL IM Left Deltoid 0.5 mL [id number] 08/21/26 94949-799-37 [employer] Total Dispensed Waste 0.5 mL 0 % VIS Given Date VIS Provided VIS Publication Date 03/26/25 Single Vaccine 20 Eligibility Eligibility Date Funding Source Not [facility] Eligible 03/26/25 Private Results Reviewed Results Reviewed: Laboratory Last Values Hgb A1c (Clinic) 6.2 % (4.0-6.0) H 03/26/25 15:04 Coding Level of Care Code Est Pt Level 4 (54815) Complex EM visit Add On G2211 Diagnoses Type 2 diabetes mellitus with hyperglycemia E11.65 Primary hypertension I10 Hypertension type: primary hypertension Hypercholesterolemia E78.00 Gastroesophageal reflux disease without esophagitis K21.9 Esophagitis presence: without esophagitis S/P colon resection Z90.49 Breast cancer screening by mammogram Z12.31 Meralgia paresthetica of right side G57.11 Assessment & Plan Assessment & Plan (1) Type 2 diabetes mellitus with hyperglycemia: Comment: [facility] Code(s): E11.65 - Type 2 diabetes mellitus with hyperglycemia Category: Medical Plan: Decrease the amount of carbohydrate intake, pasta, bread, rice and potatoes are all sugar and that is aside from all the sweet stuff, remember that fruits are good but they are Sweet also. Hemoglobin A1c goal of less than 6.2. Patient is diet controlled (2) Hypertension: Code(s): I10 - Essential (primary) hypertension Category: Medical Qualifiers: Hypertension type: primary hypertension Qualified Code(s): I10 - Essential (primary) hypertension Plan: Continue with blood pressure medication. Decrease salt intake and exercise on losartan 100 mg once a day (3) Hypercholesterolemia: Code(s): E78.00 - Pure hypercholesterolemia, unspecified Category: Medical Plan: Avoid fried foods, chicken skin, eggs, butter margarine, pastries and meat. Be it pork or beef they have a lot of cholesterol LDL goal of less than 100 and triglyceride of less than 150 on simvastatin 20 mg at bedtime will need blood work (4) GERD (gastroesophageal reflux disease): Code(s): K21.9 - Gastro-esophageal reflux disease without esophagitis Category: Medical Qualifiers: Esophagitis presence: without esophagitis Qualified Code(s): K21.9 - Gastro-esophageal reflux disease without esophagitis Plan: Avoid the foods that causes that usually spicy foods, tomato products, juices, coffee, soda and foods that your sensitive to. After eating do not lie down, allow 3-4 hours before in lie down. And keep the head of bed above 30 degrees to avoid the acid from going up. (5) S/P colon resection: Comment: Diverticulitis July 2024 Code(s): Z90.49 - Acquired absence of other specified parts of digestive tract Category: Surgical Plan: Patient is doing good continue to follow-up with the surgeon. (6) Breast cancer screening by mammogram: Code(s): Z12.31 - Encounter for screening mammogram for malignant neoplasm of breast Category: Medical (7) Meralgia paresthetica of right side: Code(s): G57.11 - Meralgia paresthetica, right lower limb Category: Medical Plan History of Present Illness The patient is a 59-year-old obese female presenting for a follow-up visit, last seen in December 2024. Her medical history is significant for GERD, hypercholesterolemia, nephrolithiasis, diabetes mellitus, hyperthyroidism, and a history of diverticulitis. Regarding her gastrointestinal history, she had diverticulitis in July 2024 complicated by a colovesical fistula, which led to a colon resection and loop ileostomy in December. Post-ileostomy reversal, she has experienced constipation requiring Linzess, but denies having watery stools. A CT of the abdomen in November 2024 showed herniation of a 10 cm loop of small bowel lateral to the ileostomy site without signs of obstruction. She follows up with gastroenterology and a surgeon. Her GERD is managed with pantoprazole. Her diabetes mellitus is diet-controlled, with an HbA1c that improved from 6.6% in December to a recent value of 6.2%. For hypercholesterolemia, she is on simvastatin 20 mg, with a last LDL of 110 mg/dL in February 2024. Her hypertension is treated with losartan 100 mg daily. She was found to be anemic in December with a hemoglobin of 9.9 and hematocrit of 30.6. For urologic issues, she follows up with urology for overactive bladder and has undergone hydrodistension. An ultrasound in January showed no hydronephrosis or nephrolithiasis. Her last colonoscopy was in August 2022 and her last mammogram was in May 2023. Health Maintenance A tetanus (Td) vaccine was administered during the visit. The shingles vaccine was discussed, and the pneumonia vaccine was recommended. An order was placed for her annual mammogram, as she is overdue. The patient was given a lab request for fasting blood work and is scheduled to follow up in three months. Social History - The patient received her flu shot at her workplace. Review of Systems - Gastrointestinal: Reports constipation requiring intermittent use of Linzess. - Denies watery stools. - Neurological: Reports numbness and a burning sensation on the lateral aspect of her thigh, particularly with prolonged standing. Physical Exam - General: Obese female. - Vital Signs: Blood pressure is noted to be good. - Cardiovascular: Regular rate and rhythm. - Respiratory: Lungs are clear to auscultation bilaterally. Results - Labs - January 05: CBC showed anemia with hemoglobin 9.9 g/dL and hematocrit 30.6%. - Electrolytes were normal. - HbA1c: 6.2% (previously 6.6% in December). - Lipid Panel (February 2024): LDL was 110 mg/dL. - Imaging - CT Abdomen (November 2024): Showed herniation of a 10 cm loop of small bowel lateral to the ileostomy and stranding, with no signs of obstruction. - Ultrasound (January 29): No hydronephrosis or nephrolithiasis noted. - Procedures - Colonoscopy (August 2022): No new findings reported. - Mammogram (May 2023): No new findings reported. Plan Patient was informed and verbally consented to the use of an ambient scribe for clinic note documentation during this visit. 1. Diabetes Mellitus The patient's diabetes is diet-controlled. Her HbA1c is 6.2%, which is at goal (less than 6.5%). Recommended a pneumonia vaccine due to her diabetes. The patient was advised to continue with yearly eye exams. 2. Hypertension The patient is on losartan 100 mg once a day, and her blood pressure is well-controlled. Will continue the current medication regimen. 3. Hypercholesterolemia The patient is managed on simvastatin 20 mg at bedtime with a goal LDL of less than 100 mg/dL. Her last LDL was 110 mg/dL in February 2024 and needs to be repeated. A fasting blood work request was provided to recheck her lipid panel. 4. Gastrointestinal Issues (Constipation, Gerd, Hx Of Diverticulitis) The patient uses Linzess for constipation following her colon resection and ileostomy reversal. Her GERD is stable on pantoprazole. She will continue to follow up with her surgeon and microbiology analyst. 5. Anemia The patient had a hemoglobin of 9.9 in December. A request for blood work was provided to follow up on her CBC. 6. Meralgia Paresthetica The patient reports numbness and burning on her lateral thigh when standing for too long. This was identified as a benign issue related to the lateral cutaneous nerve, and it was explained that weight loss may help. No medication is indicated for this condition. Discussion Notes I reviewed the patient's extensive interval history, including her recent colon resection with ileostomy reversal. We discussed that her current bowel pattern involves constipation requiring Linzess, rather than the expected diarrhea. I provided a requisition for fasting blood work to monitor for anemia and to re-evaluate her cholesterol, as her last LDL was 110. I noted her HbA1c has improved to 6.2, which is good control. I addressed her complaint of numbness and burning in the lateral thigh, explaining it is likely Meralgia Paresthetica, a benign nerve impingement, and that no specific medication is needed, though weight loss could be beneficial. We reviewed her immunizations; she has had the flu shot, and I administered a Td vaccine as she was due. I also discussed the shingles vaccine and recommended the pneumonia vaccine due to her diabetes. I placed an order for her annual mammogram and emphasized the importance of yearly eye exams with her product engineer. I asked her to follow up in three months to review her progress and lab results. Patient Instructions - Please go for fasting blood work using the lab form provided to check your blood count and cholesterol levels. - An order has been placed for your annual mammogram. - Continue your current medications, including Losartan, Simvastatin, and Pantoprazole, as prescribed. - You may continue to use Linzess as needed for constipation. - The numbness and burning sensation in your outer thigh is not a serious problem and may improve with weight loss. - You received a tetanus vaccine today. - It is recommended that you get a pneumonia shot because of your diabetes. - Be sure to see your eye doctor once a year for an exam. - Please schedule a follow-up appointment in three months. Orders: Orders AMB Hemoglobin A1c Today Z13.9 - Encounter for screening, unspecified Complete Blood Count Auto Diff Today E11.65 - Type 2 diabetes mellitus with hyperglycemia Ferritin Today E11.65 - Type 2 diabetes mellitus with hyperglycemia Hemoglobin A1c Today E11.65 - Type 2 diabetes mellitus with hyperglycemia Reticulocyte Count Today E11.65 - Type 2 diabetes mellitus with hyperglycemia IRON PROFILE Today E11.65 - Type 2 diabetes mellitus with hyperglycemia Thyroid Stimulating Hormone Today E11.65 - Type 2 diabetes mellitus with hyperglycemia Creatinine Urine Today E11.65 - Type 2 diabetes mellitus with hyperglycemia UA CC w/rflx Micro + Cult Today E11.65 - Type 2 diabetes mellitus with hyperglycemia, R30.0 - Dysuria Comprehensive Met. Panel Today E11.65 - Type 2 diabetes mellitus with hyperglycemia Free T4 (Free Thyroxine) Today E11.65 - Type 2 diabetes mellitus with hyperglycemia Lipid Panel Today E11.65 - Type 2 diabetes mellitus with hyperglycemia, E78.00 - Pure hypercholesterolemia, unspecified Microalbumin, Random (w Creat) Today E11.65 - Type 2 diabetes mellitus with hyperglycemia Vitamin B12 and Folate Today E11.65 - Type 2 diabetes mellitus with hyperglycemia Vitamin D 25-OH Total Today E11.65 - Type 2 diabetes mellitus with hyperglycemia MM tomosynthesis screening BI Today Z12.31 - Encounter for screening mammogram for malignant neoplasm of breast Td Immunization Today Z23 - Encounter for immunization
--- OUTSIDE RECORDS SUMMARY | 2025-03-26 17:51 | XMS_ITS | Clinical Summary ---
Author Organization [facility] ity Address [address] [place] [address] Care Team Providers Care Water Ski Assembler Name Role Phone Unavailable Primary Care Provider Unavailabl e Social History Tobacco Use Types Packs/Day Years Used Date Smoking Tobacco: Never Assessed Comments Unknown Sex and Gender Information Value Date Recorded Sex Assigned at Not on file Legal Sex Female 9:03 PM EST Gender Identity Not on file Sexual Orientation Not on file Plan of Treatment Upcoming Encounters Date Type Department Care Team ([facility] st Contact Info) Description 03/28/2025 3:15 PM EST [facility]ointment [facility] [address] [id number] Health Maintenance Due Date Last Done Comments Colorectal Cancer Screening: Colonoscopy 1965 DTaP,Tdap,and Td Vaccines (1 - Tdap) 1984 Hepatitis B Vaccines (1 of 3 - 19+ 3-dose series) 1984 Cervical Cancer Screening: Pap Smear 1986 Pneumococcal Vaccine: 50+ Years (1 of 1 - PCV) 2015 Zoster Vaccines (1 of 2) 2015 HIV Screening 05/05/2022 Hepatitis C Screening 05/05/2022 Social Influencers of Health Screening 05/05/2022 Depression Screening 05/23/2024 COVID-19 Vaccine ( - season) 2025 Influenza Vaccine (#1) 2025 Breast Cancer Screening 06/06/2025 06/06/19, 05/19/2022, 02/02/2021, Additional history exists RSV Immunization Adult Patients (1 - 1-dose 75+ series) 2040 HIB Vaccines Aged Out No longer eligi ble based on patient's age to complete this topic HPV Vaccines Aged Out No longer eligi ble based on patient's age to complete this topic Hepatitis A Vaccines Aged Out No long er eligible based on patient's age to complete this topic IPV Vaccines Aged Out No longer eligi ble based on patient's age to complete this topic MMR Vaccines Aged Out No longer eligi ble based on patient's age to complete this topic Meningococcal ACWY Vaccine Aged Out N o longer eligible based on patient's age to complete this topic Meningococcal B Vaccine Aged Out No l onger eligible based on patient's age to complete this topic RSV Immunization Patients Under 20 months Aged Out No longer eligible based on patient's age to complete this topic Varicella Vaccines Aged Out No longer eligible based on patient's age to complete this topic Procedures Procedure Name Priority Date/Time Associated Diagnosis Comments [facility] SCREENING DIGITAL Routine 06/06/2023 8:36 AM EST Encounter for screening mammogram for malignant neoplasm of breast from Last 3 Months or Most Recently Relevant to Health Maintenance Results * [facility] SCREENING DIGITAL (06/06/2023 8:36 AM EST) Anatomical Region Laterality Modality Mammography 06/02/2023 8:48 AM EST Narrative 06/06/2023 8:36 AM EST [facility] Diagnostic Imaging Department [address] [place] [address] Patient: CHRISTEL RUFFIN D.O.B./Age/Sex: 1965 - 57 - F Unit#: [id number] Location/Status: SPDIMAM/REG CLI Mnemonic/Ordering Site: [facility] Ordering Physician: ISAAC PACHECO MD [facility] Screening Digital - 06/04/23 - 0810 Report Status:Signed EXAM: [facility] Screening Digital EXAM DATE AND TIME: 06/04/2023 8:11 AM HISTORY: Annual screening COMPARISON: Multiple exams dating back to 2013 TECHNIQUE: Bilateral digital breast tomosynthesis was performed in the CC and MLO projections. Computer aided detection with [employer] 3D 3.1 was employed. TISSUE DENSITY: b. There are scattered areas of fibroglandular density. FINDINGS: No suspicious masses, grouped microcalcifications, or areas of architectural distortion are seen. The skin and vascularity are unremarkable. IMPRESSION: Stable mammographic appearance of the breasts. No evidence of malignancy is seen. A negative mammogram in the presence of a clinically suspicious palpable abnormality does not preclude the possibility of malignancy or alter the indications for biopsy. BI-RADS: Category 1: Negative RECOMMENDATION(S): 1: Routine screening mammogram BILATERAL in 1 year. 3341F, 7025F Dictating Physician: EZRA GARCIA MD Electronically Signed by: EZRA GARCIA MD Dic Date/Time: 06/06/23815 Sign date/Time: 06/06/23835 Procedure Note Ezra Garcia MD - 01/09/2024 [facility] Diagnostic Imaging Department [address] [place] [address] Patient: CHRISTEL RUFFIN./Age/Sex: 1965 - 57 - F Unit#: [id number] Location/Status: [facility] CLI Mnemonic/Ordering Site: [facility] Ordering Physician: ISAAC PACHECO MD [facility] Screening Digital - 06/04/23 - 0810 Report Status:Signed EXAM: [facility] Screening Digital EXAM DATE AND TIME: 06/04/2023 8:11 AM HISTORY: Annual screening COMPARISON: Multiple exams dating back to 2013 TECHNIQUE: Bilateral digital breast tomosynthesis was performed in the CCand MLO projections. Computer aided detection with [employer] 3D 3.1was employed. TISSUE DENSITY: b. There are scattered areas of fibroglandular density. FINDINGS: No suspicious masses, grouped microcalcifications, or areas ofarchitectural distortion are seen. The skin and vascularity are unremarkable. IMPRESSION: Stable mammographic appearance of the breasts. No evidence of malignancyis seen. A negative mammogram in the presence of a clinically suspicious palpable abnormality does not preclude the possibility of malignancy or alter the indications for biopsy. BI-RADS: Category 1: Negative RECOMMENDATION(S): 1: Routine screening mammogram BILATERAL in 1 year. 3341F, 7011F Dictating Physician: EZRA GARCIA MD Electronically Signed by: EZRA GARCIA MD Dic Date/Time: 06/06/23 0816 Sign date/Time: 06/06/23 0836 Isaac Pacheco MD IMG BI PROCEDURES Final Result from Last 3 Months or Most Recently Relevant to Health Maintenance Insurance [employer] Member Subscriber Plan / Payer (Ef fective 2018-Present) Name:CHRISTEL RUFFIN Relation to Subscriber:Spouse Name:Christel Ruffin Date of :1965 (Home) Address: [address] [place] [address] Payer ID:[id number] (NAIC) Type:Not on file Address: [facility] [address] [place] [id number]
--- OUTSIDE RECORDS SUMMARY | 2025-03-26 17:51 | XMS_ITS | Patient Health Record ---
Author Organization [facility] Address [address] [place] [address] Care Team Providers Care Office Employee Name Role Phone Alan Christensen Unavailable [phone] Reason For Referral No Information Medications Medication SIG (Take, Route, Frequency, Duration) Notes Start Date End Date Status PriLOSEC Active Bentyl 10 MG 1 or 2 capsules Oral ly Four times a day as needed for abdominal pain; Duration: 30 day(s) 03/17/2011 Active Problems Problem Type SNOMED Code ICD Code Onset Dates Problem Status W/U Status Risk Notes Problem Left upper quadrant pain (864562582) Abdominal pain, left upper quadrant (789.02) Active confirmed Plan Of Treatment No Information Insurance Providers Payer Name Payer Address Payer Phone Subscriber Number Group Number Insured Name Patient Relationship to Insured Coverage Start Date Coverage End Date [facility] [address] [place] [address] [phone] [id number] ARGELIA RUFFIN Self - patient is the insured Medical (General) History Medical History History ICD Code Denies RI,DM,CVA,Lung disease,renal dise ase Surgical History Surgery Date(Month/Year) section appendectomy hysterectomy knee surgery shock wave lithotripsy for kidney stones
== END 2025-03-26 15:31 | disposition home or self-care (01) ==
LOC: HO.HMCH 14:48
PROVIDERS: PCP Internal Medicine; Visit Provider Internal Medicine
DX: E11.65 Type 2 diabetes mellitus with hyperglycemia (principal); I10 Essential (primary) hypertension; E78.00 Pure hypercholesterolemia, unspecified; K21.9 Gastro-esophageal reflux disease without esophagitis; Z90.49 Acquired absence of other specified parts of digestive tract; Z12.31 Encounter for screening mammogram for malignant neoplasm of breast; G57.11 Meralgia paresthetica, right lower limb; Z13.9 Encounter for screening, unspecified; Z23 Encounter for immunization

== ENCOUNTER → 2025-03-26 14:47 | Outpatient (BNVA) | payer BC, SELFPAY | PROVIDERS: PCP Internal Medicine; Visit Provider Internal Medicine | DX: E11.65 Type 2 diabetes mellitus with hyperglycemia (principal); I10 Essential (primary) hypertension; E78.00 Pure hypercholesterolemia, unspecified; K21.9 Gastro-esophageal reflux disease without esophagitis; G57.11 Meralgia paresthetica, right lower limb; Z90.49 Acquired absence of other specified parts of digestive tract; Z23 Encounter for immunization | CPT/HCPCS: 83036; 90471; 90714; 96127 ==

== ENCOUNTER 2025-03-29 06:31 | Outpatient (REF) | payer BC, SELFPAY ==
--- OUTSIDE RECORDS SUMMARY | 2025-03-28 15:10 | XMS_ITS | Encounter Summary ---
Author Organization [facility] Address [address] [place] [address] Care Team Providers Care Gear Lapper Name Role Phone Isaac Field MD Primary Care Provider [phone] Reason for Referral * Imaging (Routine) - Authorized Specialty Diagnoses / Procedures Referred By Contac t Referred To Contact Radiology Diagnoses Encounter for screening mammogram for breast cancer Procedures MG Mammo Digital Screening w Geoff bilat [facility], Self Referral [facility] Referral ID Status Reason Start Date Expiration Date V isits Requested Visits Authorized [id number] Authorized 03/26/2025 03/26/2026 1 1 * Imaging (Routine) - Authorized Specialty Diagnoses / Procedures Referred By Contac t Referred To Contact Radiology Diagnoses Encounter for screening mammogram for breast cancer Procedures MG Mammo Digital Screening w Geoff bilat Sppl, Self Referral [facility] Referral ID Status Reason Start Date Expiration Date V isits Requested Visits Authorized [id number] Authorized 03/26/2025 03/26/2026 1 1 Reason for Visit * Imaging (Routine) - Authorized Specialty Diagnoses / Procedures Referred By Contac t Referred To Contact Radiology Diagnoses Encounter for screening mammogram for breast cancer Procedures MG Mammo Digital Screening w Geoff bilat Sppl, Self Referral [facility] Referral ID Status Reason Start Date Expiration Date V isits Requested Visits Authorized [id number] Authorized 03/26/2025 03/26/2026 1 1 Encounter Details Date Type Department Care Team (Latest Contact Info) Description 03/28/2025 3:10 PM EST - 03/28/2025 11:59 PM EST Hospital [facility] [address] [address] Encounter for screening mammogram for breast cancer Discharge Disposition: Home or Self Care Social History Tobacco Use Types Packs/Day Years Used Date Smoking Tobacco: Never Assessed Comments No Sex and Gender Information Value Date Recorded Sex Assigned at Not on file Legal Sex Female 9:03 PM EST Gender Identity Not on file Sexual Orientation Not on file documented as of this encounter Last Filed Vital Signs Vital Sign Reading Time Taken Comments Blood Pressure - - Pulse - - Temperature - - Respiratory Rate - - Oxygen Saturation - - Inhaled Oxygen Concentration - - Weight 77.1 kg (170 lb) 03/28/2025 3:16 PM EST Height 157.5 cm (5' 2 ) 03/28/2025 3:16 PM EST Body Mass Index 31.09 03/28/2025 3:16 PM EST documented in this encounter Discharge Disposition Disposition Code Departure Means Destination Home or Self Care documented in this encounter Plan of Treatment Not on file documented as of this encounter Procedures Procedure Name Priority Date/Time Associated Diagnosis Comments MG MAMMO DIGITAL SCREENING W GEOFF BILAT Routine 03/28/2025 3:19 PM EST Encounter for screening mammogram for breast cancer documented in this encounter Results * MG Mammo Digital Screening w Geoff bilat (03/28/2025 3:19 PM EST) Anatomical Region Laterality Modality Breast Bilateral Mammography 03/28/2025 3:24 PM EST Impressions 03/28/2025 3:26 PM EST No evidence of breast malignancy. BI-RADS CATEGORY: 1 - NEGATIVE RECOMMENDATION: Screening bilateral mammogram is recommended in 1 year. Mammo Location: [facility], [address] [place] [address], [address], . -------- FINAL REPORT -------- Dictated By: Mary Alice Morfin Dictated Date: 03/28/2025 15:24 ET Assigned Physician: aMry Alice Morfin Reviewed and Electronically Signed By: Mary Alice Morfin Signed Date: 03/28/2025 15:26 ET Workstation ID: [id number] Transcribed By: Self Edit Transcribed Date: 03/28/2025 15:24 ET Narrative 03/28/2025 3:26 PM EST CLINICAL: 59 years old, Female, routine annual exam. COMPARISON: Multiple prior studies dating back to 2019 TECHNIQUE: Bilateral MLO and CC views were obtained digitally with 3-D mammogram (digital breast tomosynthesis). Computer-aided detection was utilized in evaluation of this exam (CAD). FINDINGS: There is no evidence of suspicious mass or architectural distortion. No worrisome calcifications are evident. There has been no significant change from prior exam(s). BREAST DENSITY: B - There are scattered areas of fibroglandular density. Procedure Note Mary Alice Morfin MD - 03/28/2025 CLINICAL: 59 years old, Female, routine annual exam. COMPARISON: Multiple prior studies dating back to 2019 TECHNIQUE: Bilateral MLO and CC views were obtained digitally with 3-Dmammogram (digital breast tomosynthesis). Computer-aided detection wasutilized in evaluation of this exam (CAD). FINDINGS: There is no evidence of suspicious mass or architectural distortion. Noworrisome calcifications are evident. There has been no significantchange from prior exam(s). BREAST DENSITY: B - There are scattered areas of fibroglandular density. IMPRESSION: No evidence of breast malignancy. BI-RADS CATEGORY: 1 - NEGATIVE RECOMMENDATION: Screening bilateral mammogram is recommended in 1 year. Mammo Location: [facility], [address] [place] [address], [address], . -------- FINAL REPORT -------- Dictated By: Mary Alice Morfin Dictated Date: 03/28/2025 15:24 ET Assigned Physician: Mary Alice Morfin Reviewed and Electronically Signed By: Mary Alice Morfin Signed Date: 03/28/2025 15:26 ET Workstation ID: [id number] Transcribed By: Self Edit Transcribed Date: 03/28/2025 15:24 ET us Self Referral [facility] IMG BI PROCEDURES Final Resul t documented in this encounter Visit Diagnoses Diagnosis Encounter for screening mammogram for breast cancer documented in this encounter Care Teams Gear Lapper Relationship Specialty Start Date End Date Isaac Field MD [address] [place] [address] [address] [facility] [place] [place] [address] PCP - General Internal Medicine 03/28/25 documented as of this encounter
--- OUTSIDE RECORDS SUMMARY | 2025-03-29 06:34 | XMS_ITS | Clinical Summary ---
Author Organization [facility] Address [address] [place] [address] Phone Care Team Providers Care Trouble Lineman Name Role Phone Isaac Field MD Primary Care Provider [phone] Encounters Date Type Department Care Team Description 03/28/2025 3:10 PM EST - 03/28/2025 11:59 PM EST Hospital [facility]counter [facility] [address] [address] Encounter for screening mammogram for breast cancer Discharge Disposition: Home or Self Care from Last 3 Months Social History Tobacco Use Types Packs/Day Years Used Date Smoking Tobacco: Never Assessed Comments No Sex and Gender Information Value Date Recorded Sex Assigned at Not on file Legal Sex Female 9:03 PM EST Gender Identity Not on file Sexual Orientation Not on file Obstetrics History Para Term AB IAB SAB Ectopic Multiple Livin g Live Births 3 Last Filed Vital Signs Vital Sign Reading Time Taken Comments Blood Pressure - - Pulse - - Temperature - - Respiratory Rate - - Oxygen Saturation - - Inhaled Oxygen Concentration - - Weight 77.1 kg (170 lb) 03/28/2025 3:16 PM EST Height 157.5 cm (5' 2 ) 03/28/2025 3:16 PM EST Body Mass Index 31.09 03/28/2025 3:16 PM EST Plan of Treatment Health Maintenance Due Date Last Done Comments Colorectal Cancer Screening: Colonoscopy 1965 Hepatitis B Vaccines (1 of 3 - 19+ 3-dose series) 1984 Cervical Cancer Screening: Pap Smear 1986 Pneumococcal Vaccine: 50+ Years (1 of 1 - PCV) 2015 Zoster Vaccines (1 of 2) 2015 HIV Screening 05/05/2022 Hepatitis C Screening 05/05/2022 Social Influencers of Health Screening 05/05/2022 Depression Screening 05/23/2024 COVID-19 Vaccine ( season) 2025 03/04/2022, 06/14/2021, 08/26/2020, Additional history exists Influenza Vaccine (#1) 2025 4, 02/16/2023, 03/03/2022, Additional history exists Breast Cancer Screening 03/28/2027 03/28/20 25, 06/06/2023, 05/19/2022, Additional history exists DTaP,Tdap,and Td Vaccines (2 - Td or Tdap) 03/26/2035 03/26/2025 RSV Immunization Adult Patients (1 - 1-dose [...] Encounter for screening mammogram for breast cancer from Last 3 Months Results * MG Mammo Digital Screening w Geoff bilat (03/28/2025 3:19 PM EST) Anatomical Region Laterality Modality Breast Bilateral Mammography 03/28/2025 3:24 PM EST Impressions 03/28/2025 3:26 PM EST No evidence of breast malignancy. BI-RADS CATEGORY: 1 - NEGATIVE RECOMMENDATION: Screening bilateral mammogram is recommended in 1 year. Mammo Location: [facility], [address] [place] [address], [address], . -------- FINAL REPORT -------- Dictated By: Mary Alice Morfin Dictated Date: 03/28/2025 15:24 ET Assigned Physician: Mary Alice Morfin Reviewed and Electronically Signed By: Mary Alice Morfin Signed Date: 03/28/2025 15:26 ET Workstation ID: [id number] Transcribed By: Self Edit Transcribed Date: 03/28/2025 [...] year. Mammo Location: [facility], [address] [place] [address], [address], . -------- FINAL REPORT -------- Dictated By: Mary Alice Morfin Dictated Date: 03/28/2025 15:24 ET Assigned Physician: Mary Alice Morfin Reviewed and Electronically Signed By: Mary Alice Morfin Signed Date: 03/28/2025 15:26 ET Workstation ID: [id number] Transcribed By: Self Edit Transcribed Date: 03/28/2025 15:24 ET us Self Referral [facility] IMG BI PROCEDURES Final Resul t from Last 3 Months Insurance [employer] Care Teams Trouble Lineman Relationship Specialty Start Date End Date Isaac Field MD [address] [place] [address] [address] [facility] [place] [address] PCP - General Internal Medicine 03/28/25
--- OUTSIDE RECORDS SUMMARY | 2025-03-29 06:34 | XMS_ITS | Data Portability ---
Author Organization [place] - [facility] Address [address] [place] [address] Care Team Providers Care Transmission System Operator Name Role Phone ANUP PACHECO Primary Care [...] Go To The Location Of Their Choice, [address] 17:16:54 DARSHAN (antinuclea r antibodies) screen, serum 2024 025 FABIOLA [facility] (Centralized Electronic Ordering - All Locations), Patient Can Go To The Location Of Their Choice, [address] 17:16:56 ESR (erythrocyt e sedimentati on rate), blood 2024 JEFFERSON [facility] (Centralized Electronic Ordering - All Locations), Patient Can Go To The Location Of Their Choice, 17:16:56 iron + total iron-bindin g capacity (TIBC), serum 2024 JEFFERSON [facility] (Centralized Electronic Ordering - All Locations), Patient Can Go To The Location Of Their Choice, 17:16:55 ferritin, serum or plasma 2024 JEFFERSON [facility] (Centralized Electronic Ordering - All Locations), Patient Can Go To The Location Of Their Choice, 17:16:57 vitamin B6 + metabolites panel, serum or plasma 2024 JEFFERSON [facility] (Centralized Electronic Ordering - All Locations), Patient Can Go To The Location Of Their Choice, 17:16:55 CBC w/ auto diff 2024 JEFFERSON [facility] (Centralized Electronic Ordering - All Locations), Patient Can Go To The Location Of Their Choice, 17:16:54 Referral None recorded. Procedures None recorded. Surgeries None recorded. Imaging None recorded. Medication Orders clotrimazol e 10 mg rama 2024 [facility] #[id number], [address] [facility], [place], [address], 15:16:11 Patient TargetsNo targets recorded. Patient Instructions Encounter Date Encounter Id Patient Instructions Last Modified By Organization Details Last Modified Time 12/17/2024 [id number] Please note: Parts of this encounter note [...] pg/mL 232-12 45 normal Not Available [facility] ([facility]) [address] [facility], [place], [address], 12/21/2024 17:16:54 12/18/19 25 12/18/2024 VITAM IN B12+F OLATE folate (folic acid), serum 6.9 NG/mL >3.0 normal A serum folat e esther ntrat ion of less than 3.1 ng/mL is consi dered to repre sent clini sai defic iency . Not Available [facility] ([facility]) [address] [facility], [place], [address], 12/21/2024 17:16:54 12/18/1912/18/2024 CBC WITH DIFFE RENTI AL/PL ATELE T WBC 9.5 x10e3 /uL 3.4-10 .8 normal Not Available [facility] ([facility]) [address] [facility], [place], [address], 12/21/2024 17:16:54 12/18/19 25 12/18/2024 CBC WITH DIFFE RENTI AL/PL ATELE T RBC 4.70 x10e6 /uL 3.77-5 .28 normal Not Available [facility] ([facility]) [address] [place], [address], 12/21/2024 17:16:54 12/18/19 25 12/18/2024 CBC WITH DIFFE RENTI AL/PL ATELE T hemoglobin 12.4 g/dL 11.1-1 5.9 normal Not Available [facility] ([facility]) [address] [place], [address], 12/21/2024 17:16:54 12/18/19 25 12/18/2024 CBC WITH DIFFE RENTI AL/PL ATELE T hematocrit 39.9 % 34.0-4 6.6 normal Not Available [facility] ([facility]) [address] [place], [address], 12/21/2024 17:16:54 12/18/1912/18/2024 CBC WITH DIFFE RENTI AL/PL ATELE T MCV 85 fL 79-97 normal Not Available [facility] ([facility]) [address] [facility], [place], [address], 12/21/2024 17:16:54 12/18/1912/18/2024 CBC WITH DIFFE RENTI AL/PL ATELE T MCH 26.4 pg 26.6-3 3.0 below low normal Not Available [facility] ([facility]) [address] [facility], [place], [address], 12/21/2024 17:16:54 12/18/19 25 12/18/2024 CBC WITH DIFFE RENTI AL/PL ATELE T MCHC 31.1 g/dL 31.5-3 5.7 below low normal Not Available [facility] ([facility]) [address] [facility], [place], [address], 12/21/2024 17:16:54 12/18/1912/18/2024 CBC WITH DIFFE RENTI AL/PL ATELE T RDW 14.6 % 11.7-1 5.4 Not Available [facility] ([facility]) [address] [place], [address], 12/21/2024 17:16:54 12/18/1912/18/2024 CBC WITH DIFFE RENTI AL/PL ATELE T platelets 406 x10e3 /uL 150-45 0 normal Not Available [facility] ([facility]) [address] [place], [address], 12/21/2024 17:16:54 12/18/1912/18/2024 CBC WITH DIFFE RENTI AL/PL ATELE T neutrophils 59 % not estab. normal Not Available [facility] ([facility]) [address] [place], [address], 12/21/2024 17:16:54 12/18/19 25 12/18/2024 CBC WITH DIFFE RENTI AL/PL ATELE T lymphs 31 % not estab. normal Not Available [facility] ([facility]) [address] [place], [address], 12/21/2024 17:16:54 12/18/19 25 12/18/2024 CBC WITH DIFFE RENTI AL/PL ATELE T monocytes 7 % not estab. normal Not Available [facility] ([facility]) [address] [place], [address], 12/21/2024 17:16:54 12/18/19 25 12/18/2024 CBC WITH DIFFE RENTI AL/PL ATELE T eos 2 % not estab. normal Not Available [facility] ([facility]) [address] [facility], [place], [address], 12/21/2024 17:16:54 12/18/19 25 12/18/2024 CBC WITH DIFFE RENTI AL/PL ATELE T basos 1 % not estab. normal Not Available [facility] ([facility]) [address] [facility], [place], [address], 12/21/2024 17:16:54 12/18/19 25 12/18/2024 CBC WITH DIFFE RENTI AL/PL ATELE T immature cells METER TESTER Not Available [facility] ([facility]) [address] [place], [address], 12/21/2024 17:16:54 12/18/19 25 12/18/2024 CBC WITH DIFFE RENTI AL/PL ATELE T neutrophils (absolute) 5.6 x10e3 /uL 1.4-7. 0 normal Not Available [facility] ([facility]) [address] [place], [address], 12/21/2024 17:16:54 12/18/19 25 12/18/2024 CBC WITH DIFFE RENTI AL/PL ATELE T lymphs (absolute) 2.9 x10e3 /uL 0.7-3. 1 normal Not Available [facility] ([facility]) [address] [facility], [place], [address], 12/21/2024 17:16:54 12/18/19 25 12/18/2024 CBC WITH DIFFE RENTI AL/PL ATELE T monocytes(ab solute) 0.7 x10e3 /uL 0.1-0. 9 normal Not Available [facility] ([facility]) [address] [place], [address], 12/21/2024 17:16:54 12/18/19 25 12/18/2024 CBC WITH DIFFE RENTI AL/PL ATELE T eos (absolute) 0.2 x10e3 /uL 0.0-0. 4 normal Not Available [facility] ([facility]) [address] [place], [address], 12/21/2024 17:16:54 12/18/19 25 12/18/2024 CBC WITH DIFFE RENTI AL/PL ATELE T baso (absolute) 0.1 x10e3 /uL 0.0-0. 2 normal Not Available [facility] ([facility]) [address] [place], [address], 12/21/2024 17:16:54 12/18/19 25 12/18/2024 CBC WITH DIFFE RENTI AL/PL ATELE T immature granulocytes 0 % not estab. Not Available [facility] ([facility]) [address] [place], [address], 12/21/2024 17:16:54 12/18/19 25 12/18/2024 CBC WITH DIFFE RENTI AL/PL ATELE T immature grans (abs) 0.0 x10e3 /uL 0.0-0. 1 Not Available [facility] ([facility]) [address] [place], [address], 12/21/2024 17:16:54 12/18/19 25 12/18/2024 CBC WITH DIFFE RENTI AL/PL ATELE T NRBC METER TESTER Not Available [facility] ([facility]) [address] [facility], [place], [address], 12/21/2024 17:16:54 12/18/19 25 12/18/2024 CBC WITH DIFFE RENTI AL/PL ATELE T hematology comments: METER TESTER Not Available [facility] ([facility]) [address] [facility], [place], [address], 12/21/2024 17:16:54 12/18/19 25 12/18/2024 IRON AND TIBC iron bind.cap.(TI BC) 359 ug/dL 250-45 0 normal Not Available [facility] ([facility]) [address] [facility], [place], [address], 12/21/2024 17:16:55 12/18/19 25 12/18/2024 IRON AND TIBC UIBC 333 ug/dL 131-42 5 normal Not Available [facility] ([facility]) [address] [facility], [place], [address], 12/21/2024 17:16:55 12/18/19 25 12/18/2024 IRON AND TIBC iron 26 ug/dL 27-159 below low normal Not Available [facility] ([facility]) [address] [facility], [place], [address], 12/21/2024 17:16:55 12/18/19 25 12/18/2024 IRON AND TIBC iron saturation 7 % 15-55 alert low Not Available [facility] ([facility]) [address] [facility], [place], [address], 12/21/2024 17:16:55 12/18/19 25 12/21/2024 VITAM IN B6, PLASM A vitamin B6 6.3 ug/L 3.4-65 .2 normal Defic iency : <3.4 Jessica nal: 3.4 - 5.1 Adequ ate: >5.1 Not Available [facility] ([facility]) [address] [place], [address], 12/21/2024 17:16:55 12/18/1912/18/2024 DARSHAN W/REF MICHAEL IF POSIT PATRICE DARSHAN direct Negati ve negati ve Not Available [facility] ([facility]) [address] [facility], [place], [address], 12/21/2024 17:16:56 12/18/1912/18/2024 SEDIM ENTAT ION RATE- WESTE RGREN sedimentatio n rate-westerg davie 40 mm/HR 0-40 normal Not Available [facility] ([facility]) [address] [place], [address], 12/21/2024 17:16:56 12/18/1912/18/2024 BRINDA TIN ferritin 23 NG/mL 15-150 normal Not Available [facility] ([facility]) [address] [place], [address], 12/21/2024 17:16:57 Result Notes None recorded. Problems Name Problem SNOMED Code Status Onset Date Resolution Date Notes Provider Name and Address Organization Details Recorded Time Glossitis 66707212 Active 2024 HAWK GONG MD [address] [place] [address], [place], [address], [facility] - [facility] 15:13:34 Glossodynia 80832326 Active 2024 HAWK GONG MD [address] [place] [address], [place], [address], [facility] - [facility] 15:13:41 Gastroesophage al reflux disease 833462526 Active 2024 HAWK GONG MD [address] [place] [address], [place], [address], [facility] - [facility] 15:16:21 Problem Notes None recorded. Procedures Surgical History Date Name Laterality Status Provider Name and Address Organization Details Recorded Time section completed HAWK TRIANA MD [address] [place],ADRIANA [address] [place] [address], [phone], [facility] - [facility] 12/17/2024 15:04:51 extracorporeal shockwave lithotripsy completed HAWK TRI[facility] MD [address] [facility] [place],ADRIANA [address] [place] [address], [address], [facility] - [facility] 12/17/2024 15:04:58 operative procedure on knee completed HAWK TRIANA MD [address] [facility] [place],[address], [address], [facility] - [facility] 12/17/2024 15:05:05 appendectomy completed HAWK TRIANA MD [address] [facility] [place],[address], [address], [facility] - [facility] 12/17/2024 15:05:26 hysterectomy completed HAWK TRIANA MD [address] [facility] [place],[address], [address], [facility] - [facility] 12/17/2024 15:05:32 Imaging Results None recorded. [...] Address Organization Details Last Updated DateTime 12/17/2024 30155.74 g 30.2 kg/m2 157.48 cm Savanah Tanner [place] - [facility] 12/17/2024 15:01:17 Social History None recorded. Functional Status None recorded. Mental Status None recorded. Family History Nothing Reported. Medical History Condition Response GERD/Reflux Y Gynecological HistoryNo gynecological history recorded. Obstetrics History GPAL:G 0 P 0 0 0 0 Past Encounters Encounter ID Performer Location Encounter Start Date Encounter Closed Date Diagnosis/Indication Diagnosis SNOMED-CT Code Diagnosis ICD10 Code Diagnosis IMO Codes Diagnosis Note [id number] HAWK MARTI MD [facility] [address] [address] 12/17/2024 14:44:15 12/17/2024 15:18:19 Glossitis 58578981 K14.0 08117 No evidence of thrush but will try clotrimazo le Glossodynia 43504356 K14 .6 8137 Gastroesop hageal reflux disease 247351292 K21.9 40775501 Health Concerns Section Related Observation LastModified by Organization Detai ls LastModified Time None Recorded Concern Status LastModified by Organization Details LastModified Time None Recorded Advance Directives Directive None Recorded Payers Insurance Date Sequence Insurance Name Policy Number Policy Flores Covered Member ID Flores Member ID Guarantor Name 12/17/2024 1 [employer] [place] [id number] Christel Correa [id number] Christel Correa 12/17/2024 1 [employer] [place] [id number] Christel Correa [id number] Christel Correa Notes Date Note Type [...] mustard to manage symptomatology. HAWK TRIANA MD [address] [place] [address], [phone], [facility] - [facility] 12/17/2024 15:17:14 OBGyn Episode No OBEpisode recorded.
--- OUTSIDE RECORDS SUMMARY | 2025-03-29 06:34 | XMS_ITS | Patient Health Record ---
Author Organization [facility] Address [address] [place] [address] Care Team Providers Care Rounding And Backing Machine Operator Name Role Phone Alan Christensen Unavailable [phone] Reason For Referral No Information Medications Medication SIG (Take, Route, Frequency, Duration) Notes Start Date End Date Status PriLOSEC Active Bentyl 10 MG 1 or 2 capsules Oral ly Four times a day as needed for abdominal pain; Duration: 30 day(s) 03/17/2011 Active Problems Problem Type SNOMED Code ICD Code Onset Dates Problem Status W/U Status Risk Notes Problem Left upper quadrant pain (647714503) Abdominal pain, left upper quadrant (789.02) Active confirmed Plan Of Treatment No Information Insurance Providers Payer Name Payer Address Payer Phone Subscriber Number Group Number Insured Name Patient Relationship to Insured Coverage Start Date Coverage End Date [facility] [address] [place] [phone] [id number] ARGELIA RUFFIN Self - patient is the insured Medical (General) History Medical History History ICD Code Denies [place],DM,CVA,Lung disease,renal dise ase Surgical History Surgery Date(Month/Year) section appendectomy hysterectomy knee surgery shock wave lithotripsy for kidney stones
[2025-03-29 06:42] LABS: MANUAL DIFF FLAG NO
[2025-03-29 07:13] LABS: Hematocrit 36.7 % (37.0-47.0); Hemoglobin 11.1 g/dl (12.0-16.0); Imm Gran Abs Auto 0.02 X10*3/uL (0.00-0.03); Imm Gran Pct Auto 0.3 % (0.0-0.4); Lymphocytes Absolute Auto 2.2 X10*3/uL (1.2-4.9); Mean Corpuscular HGB Conc 30.2 g/dl (31.0-35.0); Mean Corpuscular Hemoglobin 25.5 pg (27.0-33.0); Mean Corpuscular Volume 84.2 fL (80.0-98.0); NRBC Abs Auto 0.000 X10*3/uL (0.0-0.012); NRBC Pct Auto 0.0 /100WBC (0.0-0.2); Platelet Count 345 X10*3/uL (160-400); Red Blood Count 4.36 X10*6/uL (4.20-5.50); Reticulocytes Absolute 0.060 X10*6/uL (0.026-0.095); White Blood Count 6.6 X10*3/uL (4.8-10.8)
[2025-03-29 07:39] LABS: Appearance Urine Clear; Glucose Urine UA Negative (Negative); PH 8.5 (5.0-9.0); Specific Gravity - Urine 1.010 (1.005-1.025); UMIC TRIGGER UACC YES
[2025-03-29 07:58] LABS: Alanine Aminotransferase 23 U/L (0-31); Albumin Level 4.2 g/dL (3.5-5.0); Alkaline Phosphatase 104 U/L (39-117); Anion Gap 10 (12-20); Aspartate Amino Transferase 20 U/L (5-31); Blood Urea Nitrogen 9 mg/dL (9-16); Calcium 9.6 mg/dL (8.4-10.2); Carbon Dioxide 28 mmol/L (22-29); Chloride 109 mmol/L (96-108); Cholesterol 184 mg/dL (<200); Estimated Glomerular Filt Rate > 60; HDL Cholesterol 44 mg/dL (>40); Iron 27 mcg/dL (30-160); Percent Iron Saturation 9 % (15-50); Potassium 4.6 mmol/L (3.3-5.1); Sodium 142 mmol/L (135-145); Total Iron Binding Capacity 300 mcg/dL (228-428); Total Protein 7.3 g/dL (6.5-8.0); Triglycerides 149 mg/dL (<150); Unsaturated Iron Binding 273 ug/dL
[2025-03-29 08:22] LABS: Folate 11.8 ng/mL (> or = 4.0); Vitamin B12 445 pg/mL (200-900)
[2025-03-29 08:25] LABS: Ferritin 11 ng/mL (10-250); Free T4 (Free Thyroxine) 0.98 ng/dL (0.71-1.85); Thyroid Stimulating Hormone 3.37 uIU/mL (0.32-4.0)
== END 2025-03-29 06:32 | disposition home or self-care (01) ==
LOC: HO.LAB 06:31
PROVIDERS: PCP Internal Medicine; Visit Provider Internal Medicine
DX: E11.65 Type 2 diabetes mellitus with hyperglycemia (principal); E78.00 Pure hypercholesterolemia, unspecified
CPT/HCPCS: 36415; 80053; 80061; 81001; 82043; 82306; 82570; 82607; 82728; 82746; 83036; 83540; 84439; 84443; 85025; 85045